=== PATIENT | male | born 1950 | race Caucasian/White ===

== ENCOUNTER 2016-10-02 11:59 | Emergency (ER) | payer MEDICARE, OTHER ==
[~2016-10-02] VITALS: Ht 177.8 cm; Wt 90.7 kg
[~2016-10-02 11:59] MED LIST: ASP81TEC PO; LISI1TAB6 PO; LOVA40TA2 PO; OXYC-199 PO
--- OUTSIDE RECORDS SUMMARY | 2016-10-02 12:06 | XMS REPORT | Continuity of Care Document ---
Author Author [facility] Organization [facility] Address Unknown Phone Unavailable Care Team Providers Care Passenger Car Inspector Name Role Phone FADI SALGADO MD PCP Insurance Providers Payer Name Policy Number Subscriber Name Relationship Wps Medicare [id number] Yulia Boyd R 18 Self / Same As Patient Comm Crossover Enter Ins Name [id number] Yulia Boyd R 18 Self / Same As Patient Advance Directives Directive Response Recorded Date/Time Advance Directives No 02/19/14 8:19am Health Care Power of Research Food Technologist No 02/19/14 8:19am Organ Donor Yes 02/19/14 8:19am Resuscitation Status Full Code 02/19/14 8:19am Problems No known problems or medical conditions. Medications Medication Dose Route Sig Days/Qty Instructions Order Date Discontinued Date Status Lovastatin (Mevacor) 1 Each PO DAILY WITH SUPPER 02/12/14 Active Lisinopril/Hydrochlorothiazide 1 Tab PO DAILY 02/12/14 Active Aspirin 81 Mg PO DAILY 02/12/14 Active Oxycodone Hcl/Acetaminophen 1-2 Tab PO EVERY 6 HOURS 35 Qty 02/19/14 Active Social History Social History Problem Response Recorded Date/Time Smoking Status Former Smoker 02/19/2014 8:21am Query Response Start Date Stop Date Smoking Status Former Smoker 08/06/1999 Hospital Discharge Instructions No hospital discharge instructions. Plan of Care No plan of care. Functional Status No functional status results. Allergies, Adverse Reactions, Alerts Allergen Type Severity Reaction Status Last Updated No Known Drug Allergies Active 02/12/14 Immunizations No immunization records. Vital Signs Acute Vital Signs Vital Response Date/Time Temperature (Fahrenheit) 97.4 degrees F (97.6 - 99.5) Temperature (Calculated Celsius) 36.20925 degrees C (36.4 - 37.5) Temperature Source Temporal Pulse Rate (adult) 75 bpm (60 - 90) Respiratory Rate 16 bpm (12 - 24) O2 Sat by Pulse Oximetry 95 % (88 - 100) Blood Pressure 117/59 mm Hg Pain Pain Intensity 4 Height (Feet) 5 feet Height (Inches) 10.00 inches Height (Calculated Centimeters) 177.250034 cm Weight (Pounds) 199 pounds Weight (Calculated Grams) 20987.883 gm Weight (Calculated Kilograms) 90.103489 kilograms Calculated BMI 28.55 Results Test Source Date Result Interp. Ref. Range Comments BUN/Creatinine Ratio February 12, 2014 8:20am 19 - Basophils # (Auto) February 12, 2014 8:20am 0.0 10^3/uL N 0.0-0.1 Basophils (%) (Auto) February 12, 2014 8:20am 1 % N 0-10 Blood Urea Nitrogen February 12, 2014 8:20am 23 MG/DL H 7-18 Calcium Level February 12, 2014 8:20am 9.3 MG/DL N 8.5-10.1 Carbon Dioxide Level February 12, 2014 8:20am 30 MMOL/L N 21-32 Chloride Level February 12, 2014 8:20am 104 MMOL/L N 101-110 Creatinine February 12, 2014 8:20am 1.2 MG/DL N 0.6-1.3 Eosinophils # (Auto) February 12, 2014 8:20am 0.2 10^3/uL N 0.0-0.3 Eosinophils (%) (Auto) February 12, 2014 8:20am 3 % N 0-10 Glucose Level February 12, 2014 8:20am 198 MG/DL H 74-106 Hematocrit February 12, 2014 8:20am 43 % N 40-54 Hemoglobin February 12, 2014 8:20am 15.3 G/DL N 13.3-17.7 Lymphocytes # (Auto) February 12, 2014 8:20am 1.5 X 10^3 N 1.0-4.0 Lymphocytes (%) (Auto) February 12, 2014 8:20am 19 % N 12-44 Mean Corpuscular Hemoglobin February 12, 2014 8:20am 31 PG N 25-34 Mean Corpuscular Hemoglobin Concent February 12, 2014 8:20am 36 G/DL N 32- 36 Mean Corpuscular Volume February 12, 2014 8:20am 87 FL N 80-99 Mean Platelet Volume February 12, 2014 8:20am 9.1 FL N 7.4-10.4 Monocytes # (Auto) February 12, 2014 8:20am 0.9 X 10^3 N 0.0-1.0 Monocytes (%) (Auto) February 12, 2014 8:20am 11 % N 0-12 Neutrophils # (Auto) February 12, 2014 8:20am 5.2 X 10^3 N 1.8-7.8 Neutrophils (%) (Auto) February 12, 2014 8:20am 67 % N 42-75 Platelet Count February 12, 2014 8:20am 232 10^3/uL N 130-400 Potassium Level February 12, 2014 8:20am 3.9 MMOL/L N 3.6-5.0 Red Blood Count February 12, 2014 8:20am 4.97 10^6/uL N 4.35-5.85 Red Cell Distribution Width February 12, 2014 8:20am 12.6 % N 10.0-14.5 Sodium Level February 12, 2014 8:20am 137 MMOL/L N 135-145 White Blood Count February 12, 2014 8:20am 7.8 10^3/uL N 4.3-11.0 Estimat Glomerular Filtration Rate February 12, 2014 8:20am > 60 - GFR INTERPRETIVE DATA UNITS FOR ESTIMATED GFR (eGFR): mL/min/1.73 M2 REFERENCE RANGE FOR ESTIMATED GFR (eGFR) eGFR NORMAL eGFR >60 MODERATELY DECREASED eGFR 30-59 SEVERLY DECREASED eGFR 15-29 KIDNEY FAILURE <15 (OR DIALYSIS) MRSA Screen Nasal February 12, 2014 8:20am MRSA not isolated Procedures Procedure Status Date Provider(s) Laparoscopic repair of inguinal hernia completed 02/19/14 TAMMY ARECHIGA MD Tracing only of electrocardiogram completed 02/12/14 [facility] MILK 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
[2016-10-02 12:16] LABS: BILIRUBIN,URINE NEGATIVE (NEGATIVE); KETONES,URINE NEGATIVE (NEGATIVE); LEUKOCYTE ESTERASE ,URINE 3+ (NEGATIVE); NITRITE,URINE NEGATIVE (NEGATIVE); PH,URINE 7 (5-9); PROTEIN,URINE 3+ (NEGATIVE); UROBILINOGEN,URINE NORMAL (NORMAL)
--- NOTE | 2016-10-02 12:18 | ED GU-Male ---
General Chief Complaint: -Male Stated Complaint: BLOOD IN URINE Source: patient, family Exam Limitations: no limitations History of Present Illness Time seen by provider: 12:16 Initial Comments To ER with reports of blood in his urine. He had some burning in the penis and urethra upon urination this morning. He's had pain with urination for about the past 2-[address] Lane's office and was told there was some blood in his urine and an antibiotic was called in. He then went home and was working outside and went to urinate and noticed the urine to be grossly bloody. He's never had this happen before. He does have a history of bladder infections. He does have a remote history (1993) of lung cancer treated with chemotherapy and radiation and is a former smoker. Timing/Duration: just prior to arrival Severity/Quality: moderate Location: urethral Radiation: none Activities at Onset: none Prior Genitourinary Problems: none Associated Symptoms: dysuriaNo fever/chills, No lower back pain, No urinary frequency Allergies and Home Medications Allergies Coded Allergies: No Known Drug Allergies (Unverified , 02/12/14) Home Medications Lisinopril/Hydrochlorothiazide 1 Tab Tablet 1 TAB PO DAILY (Reported) Lovastatin 40 Mg Tablet 1 EACH PO DAILY WITH SUPPER (Reported) Constitutional: see HPINo chills, No fever EENTM: see HPI Respiratory: no symptoms reported Cardiovascular: no symptoms reported Genitourinary: no symptoms reported see HPI burning dysuriadenies frequency, denies flank pain, hematuria Musculoskeletal: no symptoms reported Skin: no symptoms reported Psychiatric/Neurological: No Symptoms Reported Endocrine: No Symptoms Reported Hematologic/Lymphatic: No Symptoms Reported Past Wonzhcg-Rtzush-Ypcaeg Hx Patient Social History Recent Foreign Travel: No Contact w/Someone Who Travel: No Immunizations Up To Date Date of Influenza Vaccine: May 11, 2014 Surgeries HX Surgeries: Yes (WISDOM TEETH REMOVAL, COLONOSCOPY) Respiratory Hx Respiratory Disorders: No Cardiovascular Hx Cardiac Disorders: No Neurological Hx Neurological Disorders: No Genitourinary Hx Genitourinary Disorders: No Gastrointestinal Hx Gastrointestinal Disorders: No Musculoskeletal Hx Musculoskeletal Disorders: No Endocrine Hx Endocrine Disorders: No HEENT HX ENT Disorders: No Blood Transfusions Hx Blood Disorders: No Physical Exam Vital Signs Capillary Refill : General Appearance: WD/WN no apparent distress HEENT: PERRL/EOMI normal ENT inspection Neck: non-tender full range of motion Respiratory: no respiratory distress no accessory muscle use Gastrointestinal: normal bowel sounds non tender soft Extremities: normal range of motion non-tender normal inspection Neurologic/Psychiatric: alert normal mood/affect oriented x 3 Skin: normal color warm/dry Progress/Results/Core Measures Results/Orders Lab Results Laboratory Tests Test 10/02/16 12:10 10/02/16 12:23 Range/Units Urine Bacteria NEGATIVE /HPF Urine Bilirubin NEGATIVE NEGATIVE Urine Casts NONE /LPF Urine Clarity BLOODY H Urine Color RED H Urine Crystals NONE /LPF Urine Culture Indicated YES Urine Glucose (UA) NEGATIVE NEGATIVE Urine Ketones NEGATIVE NEGATIVE Urine Leukocyte Esterase 3+ H NEGATIVE Urine Mucus NEGATIVE /LPF Urine Nitrite NEGATIVE NEGATIVE Urine Protein 3+ H NEGATIVE Urine RBC TNTC H /HPF Urine RBC (Auto) 5+ H NEGATIVE Urine Specific [place] 1.010 L 1.016-1.022 Urine Squamous Epithelial Cells NONE /HPF Urine Urobilinogen NORMAL NORMAL MG/DL Urine WBC 10-25 H /HPF Urine pH 7 5-9 Alanine Aminotransferase (ALT/SGPT) 32 0-55 U/L Albumin 4.4 3.2-4.5 G/DL Alkaline Phosphatase 69 40-136 U/L Anion Gap 13 5-14 MMOL/L Aspartate Amino Transf (AST/SGOT) 30 5-34 U/L BUN/Creatinine Ratio 13 Basophils # (Auto) 0.0 0.0-0.1 10^3/uL Basophils (%) (Auto) 0 0-10 % Blood Urea Nitrogen 15 7-18 MG/DL Calcium Level 9.7 8.5-10.1 MG/DL Carbon Dioxide Level 22 21-32 MMOL/L Chloride Level 100 98-107 MMOL/L Creatinine 1.19 0.60-1.30 MG/DL Eosinophils # (Auto) 0.2 0.0-0.3 10^3/uL Eosinophils (%) (Auto) 2 0-10 % Estimat Glomerular Filtration Rate > 60 Glucose Level 103 70-105 MG/DL Hematocrit 43 40-54 % Hemoglobin 15.2 13.3-17.7 G/DL INR Comment 1.0 0.8-1.4 Lymphocytes # (Auto) 2.0 1.0-4.0 X 10^3 Lymphocytes (%) (Auto) 17 12-44 % Mean Corpuscular Hemoglobin 31 25-34 PG Mean Corpuscular Hemoglobin Concent 35 32-36 G/DL Mean Corpuscular Volume 88 80-99 FL Mean Platelet Volume 8.7 7.4-10.4 FL Monocytes # (Auto) 1.5 H 0.0-1.0 X 10^3 Monocytes (%) (Auto) 13 H 0-12 % Neutrophils # (Auto) 8.0 H 1.8-7.8 X 10^3 Neutrophils (%) (Auto) 69 42-75 % Platelet Count 272 130-400 10^3/uL Potassium Level 3.9 3.6-5.0 MMOL/L Prothrombin Time 13.0 12.2-14.7 SEC Red Blood Count 4.95 4.35-5.85 10^6/uL Red Cell Distribution Width 12.6 10.0-14.5 % Sodium Level 135 135-145 MMOL/L Total Bilirubin 0.5 0.1-1.0 MG/DL Total Protein 7.5 6.4-8.2 G/DL White Blood Count 11.7 H 4.3-11.0 10^3/uL My Orders Orders-LETY CHIU APRN Ua Culture If Indicated (10/02/16 12:08) Cbc With Automated Diff (10/02/16 12:08) Protime With Inr (10/02/16 12:08) Comprehensive Metabolic Panel (10/02/16 12:08) Saline Lock/Iv-Start (10/02/16 12:11) Ct Abdomen/Pelvis W (10/02/16 12:11) Urine Culture (10/02/16 12:10) Ceftriaxone Injection (Rocephin Injectio (10/02/16 12:45) Iohexol Injection (Omnipaque 350 Mg/Ml 1 (10/02/16 13:15) Ns (Ivpb) (Sodium Chloride 0.9% Ivpb Bag (10/02/16 13:15) Medications Given in ED Current Medications Medications Dose Ordered Sig/Ester Route Start Time Stop Time Status Last Admin Dose Admin Ceftriaxone Sodium/Sodium Chloride 50 ml @ 100 mls/hr ONCE ONCE IV 10/02/16 12:45 10/02/16 13:14 DC 10/02/16 13:50 100 MLS/HR Iohexol 100 ml ONCE ONCE IV 10/02/16 13:15 10/02/16 13:41 DC 10/02/16 13:17 100 ML Sodium Chloride 100 ml ONCE ONCE IV 10/02/16 13:15 10/02/16 13:41 DC 10/02/16 13:18 80 ML Diagnostic Imaging Diagonstic Imaging: CT Comments NAME: YULIA [facility]YD [facility] REC#: [id number] PT STATUS: REG ER : 1950 PHYSICIAN: LETY CHIU APRN ADMIT DATE: 10/02/16/ER Draft Date of Exam:10/02/16 CT ABDOMEN/PELVIS W PROCEDURE: CT abdomen and pelvis with contrast. TECHNIQUE: Multiple contiguous axial images were obtained through the abdomen and pelvis after administration of intravenous contrast. INDICATION: Hematuria. 100 mL of Omnipaque 350 is administered intravenously. FINDINGS: The lung bases are clear. The liver, the gallbladder, the spleen, the adrenals, and the pancreas appear unremarkable. The kidneys have symmetric contrast enhancement. In the lower pole of the right kidney there is a partially exophytic, mass measuring 1.7 CM with internal density in the soft tissue range. A solid mass is possible. The urinary bladder demonstrates significant thickening of its wall. This is likely related to cystitis given the diffuse nature. There is diverticulosis in the sigmoid colon with no evidence of diverticulitis. The prostate overall size is within normal limits. No significant free fluid or fluid collection in the abdomen or pelvis. The appendix is normal. The abdominal aorta is normal in caliber. No para-aortic significantly enlarged lymph node is seen. The osseous structures demonstrate mild degenerative changes. IMPRESSION: 1. Diffuse significant thickening in the urinary bladder wall probably related to cystitis. 2. Indeterminate 1.7 CM partially exophytic lesion in the lower pole of the right kidney. Evaluation with the right kidney ultrasound is recommended. 3. Diverticulosis. No diverticulitis. Dictated on workstation # [id number] Dict: 10/02/16 1341 Trans: 10/02/16 1404 [facility] [id number] Interpreted by: ASIA HO MD Electronically signed by: Departure Communication Progress Notes [id number]-Discussed withTara from Dr Lane's office. Informed of CT and need for outpatient renal ultrasound. She will relay message to Dr Lane, Aydee, or Kati. Impression Impression: Primary Impression: Urinary tract infection Qualified Code: N30.01 - Acute cystitis with hematuria Additional Impressions: Hematuria Renal lesion Disposition: HOME, SELF-CARE Condition: Stable Departure-Patient Inst. Decision time for Depature: 13:32 Referrals: ESTHER LANE MD (PCP/Family) Primary Care Physician RIKI ARORA MD Patient Instructions: Blood in the Urine (Hematuria) in Adults, Urinary Tract Infection, Adult (DC) Add. Discharge Instructions: 1. Take the antibiotics as directed as prescribed by Dr. Lane's office 2. Call Dr. Arora to schedule a follow-up appointment for further evaluation 3. All discharge instructions reviewed with patient and/or family. Voiced understanding. Copy Copies To 1: ESTHER LANE MD, PETER J APRN Oct 02, 2016 12:18
[2016-10-02 12:38] LABS: BASOPHILS % (AUTO) 0 % (0-10); EOSINOPHILS # (AUTO) 0.2 10^3/uL (0.0-0.3); EOSINOPHILS % (AUTO) 2 % (0-10); LYMPHOCYTES % (AUTO) 17 % (12-44); MEAN CORPUSCULAR HEMOGLOBIN 31 PG (25-34); MEAN CORPUSCULAR HGB CONC 35 G/DL (32-36); MEAN CORPUSCULAR VOLUME 88 FL (80-99); MEAN PLATELET VOLUME 8.7 FL (7.4-10.4); MONOCYTES # (AUTO) 1.5 X 10^3 (0.0-1.0); MONOCYTES % (AUTO) 13 % (0-12); NEUTROPHILS % (AUTO) 69 % (42-75); PLATELET COUNT 272 10^3/uL (130-400); RED BLOOD COUNT 4.95 10^6/uL (4.35-5.85); RED CELL DISTRIBUTION WIDTH 12.6 % (10.0-14.5); WHITE BLOOD COUNT 11.7 10^3/uL (4.3-11.0)
[2016-10-02] MEDS ORDERED: cefTRIAXone INJECTION 1,000 MG in NS (IVPB) 50 ML IV ONE (12:45)
[2016-10-02 12:58] LABS: ALANINE AMINOTRANSFERASE 32 U/L (0-55); ALBUMIN 4.4 G/DL (3.2-4.5); ANION GAP 13 MMOL/L (5-14); ASPARTATE AMINO TRANSFERASE 30 U/L (5-34); BILIRUBIN,TOTAL 0.5 MG/DL (0.1-1.0); BLOOD UREA NITROGEN 15 MG/DL (7-18); BUN/CREATININE RATIO 13; CALCIUM 9.7 MG/DL (8.5-10.1); CARBON DIOXIDE 22 MMOL/L (21-32); CHLORIDE 100 MMOL/L (98-107); CREATININE SERUM 1.19 MG/DL (0.60-1.30); GFR ESTIMATED > 60; GLUCOSE 103 MG/DL (70-105); POTASSIUM 3.9 MMOL/L (3.6-5.0); SODIUM 135 MMOL/L (135-145); TOTAL PROTEIN 7.5 G/DL (6.4-8.2)
[2016-10-02] MEDS ORDERED: IOHEXOL 350 MG/ML 100 ML (OMNIPAQUE 350) VIAL IV ONE (13:15)
[2016-10-02] MEDS ORDERED: NS 100 ML (IVPB) BAG IV ONE (13:15)
--- NOTE | 2016-10-02 14:05 | Diagnostic Imaging Report ---
PROCEDURE: CT abdomen and pelvis with contrast. TECHNIQUE: Multiple contiguous axial images were obtained through the abdomen and pelvis after administration of intravenous contrast. INDICATION: Hematuria. 100 mL of Omnipaque 350 is administered intravenously. FINDINGS: The lung bases are clear. The liver, the gallbladder, the spleen, the adrenals, and the pancreas appear unremarkable. The kidneys have symmetric contrast enhancement. In the lower pole of the right kidney there is a partially exophytic, mass measuring 1.7 CM with internal density in the soft tissue range. A solid mass is possible. The urinary bladder demonstrates significant thickening of its wall. This is likely related to cystitis given the diffuse nature. There is diverticulosis in the sigmoid colon with no evidence of diverticulitis. The prostate overall size is within normal limits. No significant free fluid or fluid collection in the abdomen or pelvis. The appendix is normal. The abdominal aorta is normal in caliber. No para-aortic significantly enlarged lymph node is seen. The osseous structures demonstrate mild degenerative changes. IMPRESSION: 1. Diffuse significant thickening in the urinary bladder wall probably related to cystitis. 2. Indeterminate 1.7 CM partially exophytic lesion in the lower pole of the right kidney. Evaluation with the right kidney ultrasound is recommended. 3. Diverticulosis. No diverticulitis. Dictated by: Dictated on workstation # [id number]
[2016-10-02 15:25] VITALS: BP 128/70
== END 2016-10-02 14:22 | disposition home or self-care (01) ==
LOC: EDUNIT# 11:59 → ER 12:01
DX: N30.01 Acute cystitis with hematuria (principal); N28.9 Disorder of kidney and ureter, unspecified; K57.30 Diverticulosis of large intestine without perforation or abscess without bleeding; I10 Essential (primary) hypertension; Z79.899 Other long term (current) drug therapy; Z85.118 Personal history of other malignant neoplasm of bronchus and lung; Z92.21 Personal history of antineoplastic chemotherapy
CPT/HCPCS: 36415; 74177; 80053; 81000; 85025; 85610; 87088; 96365

== ENCOUNTER → 2016-10-05 | Outpatient (CLI) | payer MEDICARE, OTHER ==
--- OUTSIDE RECORDS SUMMARY | 2016-10-05 13:03 | XMS REPORT | Continuity of Care Document ---
Author Author [facility] Organization [facility] Address Unknown Phone Unavailable Care Team Providers Care Script Manager Name Role Phone FADI SALGADO MD PCP Insurance Providers Payer Name Policy Number Subscriber Name Relationship Wps Medicare [id number] Yulia Boyd R 18 Self / Same As Patient Comm Crossover Enter Ins Name [id number] Yulia Boyd R 18 Self / Same As Patient Advance Directives Directive Response Recorded Date/Time Advance Directives No 02/19/14 8:19am Health Care Power of District Fire Chief No 02/19/14 8:19am Organ Donor Yes 02/19/14 [...] F (97.6 - 99.5) Temperature (Calculated Celsius) 36.17117 degrees C (36.4 - 37.5) Temperature Source Temporal Pulse Rate (adult) 75 bpm (60 - 90) Respiratory Rate 16 bpm (12 - 24) O2 Sat by Pulse Oximetry 95 % (88 - 100) Blood Pressure 117/59 mm Hg Pain Pain Intensity 4 Height (Feet) 5 feet Height (Inches) 10.00 inches Height (Calculated Centimeters) 177.354704 cm Weight (Pounds) 199 pounds Weight (Calculated Grams) 20310.883 gm Weight (Calculated Kilograms) 90.170473 kilograms Calculated BMI 28.55 Results Test Source [...] only of electrocardiogram completed 02/12/14 [facility] 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
--- NOTE | 2016-10-05 14:30 | Diagnostic Imaging Report ---
Renal ultrasound. INDICATION: Indeterminate mass in the lower pole of the right kidney. FINDINGS: The right kidney is 9.8 cm and the left kidney is 10.1 cm in length. The partially exophytic nodule seen arising from the lower pole of the right kidney demonstrates mixed echogenicity with no definite internal color Doppler seen. The lesion measurements are 1.8 x 1.9 x 1.7 cm. There is a small simple cyst measuring 1 x 0.8 x 0.9 cm in the mid right kidney. No hydronephrosis on either side. IMPRESSION: Indeterminate 1.8 cm nodule exophytic from the lower pole of the right kidney. Further evaluation with renal mass protocol MRI of the abdomen is recommended. Report was faxed to office of Dr. Lane by magy at 2:30 p.m. Dictated by: Dictated on workstation # [id number]
== END ==
LOC: RAD 13:00
PROVIDERS: ATTEND Family Medicine
DX: N28.9 Disorder of kidney and ureter, unspecified (principal)
CPT/HCPCS: 76770

== ENCOUNTER → 2016-10-24 | Outpatient (CLI) | payer MEDICARE, OTHER ==
[~2016-10-24] MED LIST changes: +GADOBUTROL 10 MMOL/10 ML (GADAVIST) VIAL IV ONE
--- OUTSIDE RECORDS SUMMARY | 2016-10-24 07:57 | XMS REPORT | Continuity of Care Document ---
Author Author [facility] Organization [facility] Address Unknown Phone Unavailable Care Team Providers Care Car Rental Sales Assistant Name Role Phone FADI SALGADO MD PCP Insurance Providers Payer Name Policy Number Subscriber Name Relationship Wps Medicare [id number] Yulia Boyd R 18 Self / Same As Patient Comm Crossover Enter Ins Name [id number] Yulia Boyd R 18 Self / Same As Patient Advance Directives Directive Response Recorded Date/Time Advance Directives No 02/19/14 8:19am Health Care Power of Barrel Cap Setter No 02/19/14 8:19am Organ Donor Yes 02/19/14 [...] F (97.6 - 99.5) Temperature (Calculated Celsius) 36.23386 degrees C (36.4 - 37.5) Temperature Source Temporal Pulse Rate (adult) 75 bpm (60 - 90) Respiratory Rate 16 bpm (12 - 24) O2 Sat by Pulse Oximetry 95 % (88 - 100) Blood Pressure 117/59 mm Hg Pain Pain Intensity 4 Height (Feet) 5 feet Height (Inches) 10.00 inches Height (Calculated Centimeters) 177.612047 cm Weight (Pounds) 199 pounds Weight (Calculated Grams) 51660.883 gm Weight (Calculated Kilograms) 90.083108 kilograms Calculated BMI 28.55 Results Test Source [...] only of electrocardiogram completed 02/12/14 SCARLET MELG[facility] 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
--- NOTE | 2016-10-24 12:40 | Diagnostic Imaging Report ---
PROCEDURE: MR imaging abdomen with and without contrast. TECHNIQUE: Multiplanar, multisequence MR imaging of the abdomen was performed with and without contrast. This is performed based on renal mass protocol with subtraction imaging/ INDICATION: Nodule intermediate from the lower pole of the right kidney. 9 mL of Gadavist is administered intravenously. FINDINGS: There is a partially exophytic mass seen in the inferior pole of the right kidney measuring 1.7 cm in size. This has low T2 signal and is associated with a rim of T1 hyperintense signal on precontrast images. There is no definitive contrast enhancement identified. The elements of increased signal on the precontrast T1-weighted images and slight patient motion between the pre and postcontrast images prevent optimal assessment for subtle enhancement and preclude utilization of subtraction imaging which demonstrates artifacts. There are other T2 bright nonenhancing lesions in the right kidney up to 1 cm in size, compatible with cysts. There is no suspicious lesion seen in the left kidney. No hydronephrosis on either side. There is no lymphadenopathy along the para-aortic region. The gallbladder demonstrates no stones, wall thickening, or evidence of cholecystitis. The pancreas, adrenals and the spleen appear unremarkable. IMPRESSION: Lower pole partially exophytic mass in the right kidney has T1 hyperintense elements prior to contrast administration suggestive of a hemorrhagic lesion likely a hemorrhagic cyst. Follow-up CT scan of the abdomen with renal mass protocol in three months is recommended to monitor this lesion. Dictated by: Dictated on workstation # [id number]
== END ==
LOC: RAD 07:54
PROVIDERS: ATTEND Nurse Practitioner Family
DX: N28.9 Disorder of kidney and ureter, unspecified (principal)
CPT/HCPCS: 74183

== ENCOUNTER → 2017-01-30 | Outpatient (CLI) | payer MEDICARE, OTHER ==
[~2017-01-30] MED LIST changes: +CATHETER FLUSH 10 ML SYR IV PRN; -GADOBUTROL 10 MMOL/10 ML (GADAVIST) VIAL IV ONE; +IOHEXOL 350 MG/ML 100 ML (OMNIPAQUE 350) VIAL IV ONE; +NS 100 ML (IVPB) BAG IV ONE
--- NOTE | 2017-01-30 10:45 | Diagnostic Imaging Report ---
PROCEDURE: CT abdomen with and without contrast. TECHNIQUE: Multiple contiguous axial CT images of the abdomen were obtained prior to and after intravenous administration of iodinated contrast. INDICATION: Followup renal mass Correlation with CT of 10/02/16 and MRI of 10/24/16 is performed. FINDINGS: There is a 1.7 cm exophytic lesion from the lower pole of the right kidney. When compared to the unenhanced phase, the postcontrast images demonstrate increased Hounsfield units of 15-25 units on the postcontrast images. This is concerning for solid component that is relatively hypovascular resulting in minimal enhancement. The size of this lesion is unchanged from 10/02/16. There is otherwise symmetric enhancement and excretion in the kidneys. No kidney stones seen. There are subcentimeter hypodensities in the kidneys mostly on the right side likely related to cysts. The liver, the gallbladder, the spleen, and the pancreas is unremarkable. The adrenal glands demonstrate mild thickening probably related to hyperplasia. The lung bases demonstrate no focal consolidation. The abdominal aorta is normal in caliber. No para-aortic significantly enlarged lymph node is seen. The osseous structures demonstrate mild degenerative changes. No significant fluid collection or free fluid is seen in the abdomen or pelvis. IMPRESSION: Stable 1.7 cm circumscribed lesion exophytic from the lower pole of the right kidney with suggestion of minimal enhancement. 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 Report was faxed to the office of Kati Appiah APRN by magy at 10:47 am. Dictated by: Dictated on workstation # [id number]
== END ==
LOC: RAD 09:06
PROVIDERS: ATTEND Nurse Practitioner Family
DX: N28.9 Disorder of kidney and ureter, unspecified (principal)
CPT/HCPCS: 74170

== ENCOUNTER → 2017-06-04 | Outpatient (CLI) | payer MEDICARE, OTHER ==
[~2017-06-04] MED LIST changes: -CATHETER FLUSH 10 ML SYR IV PRN
[2017-06-04 08:22] LABS: BLOOD UREA NITROGEN 14 MG/DL (7-18); BUN/CREATININE RATIO 12; CREATININE SERUM 1.13 MG/DL (0.60-1.30); GFR ESTIMATED > 60
--- NOTE | 2017-06-04 16:12 | Diagnostic Imaging Report ---
PROCEDURE: CT abdomen and pelvis with and without contrast. TECHNIQUE: Precontrast acquisitions were acquired through the abdomen and pelvis. Multiple contiguous axial images were obtained through the abdomen and pelvis after the administration of intravenous contrast. INDICATION: Followup renal mass. CONTRAST: 100 mL of Omnipaque 350 was administered intravenously. FINDINGS: The lung bases demonstrate no significant abnormality. The liver, gallbladder, spleen, and pancreas appear unremarkable. There are bilateral nodules in the adrenal glands with fat attenuation, suggestive of benign myelolipomas. In the right kidney along the lower pole, there is a partially exophytic 1.8 cm mass with mild enhancement seen. This has not significantly changed in size when compared to the previous study of 01/30/2017. The renal parenchyma demonstrates subcentimeter hypodensities which are too small to adequately characterize. These are likely cysts. The unenhanced phase demonstrates no kidney stones. There is no hydronephrosis. There is minimal prominence of the prostate gland with no significant enlargement. The urinary bladder appears unremarkable. The thoracic aorta is normal in caliber. No deonte-aortic significantly enlarged lymph node is seen. No significant free fluid or fluid collection in the abdomen or pelvis is noted. The appendix is normal. There is prominent diverticulosis. No diverticulitis. The osseous structures appear grossly unremarkable. IMPRESSION: 1. 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 No significant change in size is seen. No evidence of lymph node spread or metastatic disease in the abdomen or pelvis. 2. Diverticulosis. No diverticulitis. Report faxed to Dr. Duenas at 4:12 p.m. 06/04/2017/cb Dictated by: Dictated on workstation # [id number]
== END ==
LOC: RAD 07:57
PROVIDERS: ATTEND Urology
DX: N28.89 Other specified disorders of kidney and ureter (principal); K57.30 Diverticulosis of large intestine without perforation or abscess without bleeding
CPT/HCPCS: 36415; 74178; 82565; 84520

== ENCOUNTER 2017-08-18 10:47 | Emergency (ER) | payer MEDICARE, OTHER ==
[~2017-08-18] VITALS: Ht 175.3 cm; Wt 90.7 kg
[~2017-08-18 10:47] MED LIST changes: -IOHEXOL 350 MG/ML 100 ML (OMNIPAQUE 350) VIAL IV ONE; -NS 100 ML (IVPB) BAG IV ONE
--- OUTSIDE RECORDS SUMMARY | 2017-08-18 10:52 | XMS REPORT | Continuity of Care Document ---
Author Author [facility] Organization [facility] Address Unknown Phone Unavailable Allergies Active Description Code Type Severity Reaction Onset Reported/Identified Relationship to Patient Clinical Status Yes No Known Drug Allergies [id number] Drug Allergy Unknown N/A 02/12/2014 Medications There is no data. Problems Date Dx Coded Attending Type Code Diagnosis Diagnosed By 02/19/2014 HAWK IGLESIAS, TAMMY Ot 550.90 UNILAT INGUINAL HERNIA 08/12/2014 KARTHIK IGLESIAS, AUDELIA Garza Ot 211.3 08/12/2014 KARTHIK IGLESIAS, AUDELIA Garza Ot 562.10 08/12/2014 KARTHIK IGLESIAS, AUDELIA Garza Ot 600.00 08/12/2014 KARTHIK IGLESIAS, AUDELIA Garza Ot V76.51 08/13/2014 KARTHIK IGLESIAS, AUDELIA Garza Ot 211.3 08/13/2014 KARTHIK IGLESIAS, AUDELIA Garza Ot 562.10 08/13/2014 KARTHIK IGLESIAS, AUDELIA Garza Ot 600.00 08/13/2014 KARTHIK IGLESIAS, AUDELIA Garza Ot V76.51 08/14/2014 KARTHIK IGLESIAS, AUDELIA Garza Ot 211.3 08/14/2014 KARTHIK IGLESIAS, AUDELIA Garza Ot 562.10 08/14/2014 KARTHIK IGLESIAS, AUDELIA Garza Ot 600.00 08/14/2014 KARTHIK IGLESIAS, AUDELIA Garza Ot V76.51 09/14/2014 KARTHIK IGLESIAS, AUDELIA Garza Ot 211.3 09/14/2014 KARTHIK IGLESIAS, AUDELIA Garza Ot 562.10 09/14/2014 KARTHIK IGLESIAS, AUDELIA Garza Ot 600.00 09/14/2014 KARTHIK IGLESIAS, AUDELIA Garza Ot V76.51 11/25/2014 KARTHIK IGLESIAS, AUDELIA Garza Ot V72.84 02/01/2015 SKIP IGLESIAS, ESTHER A Ot 272.4 02/01/2015 SKIP IGLESIAS, ESTHER A Ot 401.9 02/01/2015 SKIP IGLESIAS, ESTHER A Ot V10.11 09/01/2015 HAWK IGLESIAS, TAMMY Ot 550.90 09/01/2015 HAWK IGLESIAS, TAKAAKI Ot V72.63 09/01/2015 HAWK IGLESIAS, TAKAAKI Ot V74.8 09/01/2015 KARTHIK IGLESIAS, AUDELIA Garza Ot 211.3 09/01/2015 KARTHIK IGLESIAS, AUDELIA Garza Ot 562.10 09/01/2015 KARTHIK IGLESIAS, AUEDLIA Garza Ot 600.00 09/01/2015 KARTHIK IGLESIAS, AUDLEIA Garza Ot V76.51 09/01/2015 KARTHIK IGLESIAS, AUDELIA Garza Ot V72.84 09/01/2015 SKIP IGLESIAS, ESTHER A Ot 272.4 09/01/2015 SKIP IGLESIAS, ESTHER A Ot 401.9 09/01/2015 SKIP IGLESIAS, ESTHER A Ot V10.11 09/01/2015 HAKAN MURDOCK WREATH MACHINE OPERATOR Ot Z08 09/01/2015 HAKAN MURDOCK WREATH MACHINE OPERATOR Ot Z85.118 09/03/2015 HAKAN MURDOCK WREATH MACHINE OPERATOR Ot Z08 09/03/2015 HAKAN MURDOCK WREATH MACHINE OPERATOR Ot Z85.118 09/07/2015 HAKAN MURDOCK WREATH MACHINE OPERATOR Ot F17.210 09/07/2015 HAKAN MURDOCK WREATH MACHINE OPERATOR Ot Z85.118 09/07/2015 HAKAN MURDOCK WREATH MACHINE OPERATOR Ot F17.210 09/07/2015 HAKAN MURDOCK WREATH MACHINE OPERATOR Ot Z85.118 09/13/2015 HAWK IGLESIAS, TAKAAKI Ot 550.90 09/13/2015 HAWK IGLESIAS, TAKAAKI Ot V72.63 09/13/2015 HAWK IGLESIAS, TAKAAKI Ot V74.8 09/13/2015 KARTHIK IGLESIAS, AUDELIA Garza Ot 211.3 09/13/2015 KARTHIK IGLESIAS, AUDELIA Garza Ot 562.10 09/13/2015 KARTHIK IGLESIAS, AUDELIA Garza Ot 600.00 09/13/2015 KARTHIK IGLESIAS, AUDELIA Garza Ot V76.51 09/13/2015 KARTHIK IGLESIAS, AUDELIA Garza Ot V72.84 09/13/2015 SKIP IGLESIAS, ESTHER A Ot 272.4 09/13/2015 SKIP IGLESIAS, ESTHER A Ot 401.9 09/13/2015 SKIP IGLESIAS, ESTHER A Ot V10.11 09/13/2015 HAKAN MURDOCK WREATH MACHINE OPERATOR Ot Z08 09/13/2015 HAKAN MURDOCK WREATH MACHINE OPERATOR Ot Z85.118 09/13/2015 HAKAN MURDOCK WREATH MACHINE OPERATOR Ot F17.210 09/13/2015 HAKAN MURDOCK WREATH MACHINE OPERATOR Ot Z85.118 09/13/2015 HAKAN MURDOCK WREATH MACHINE OPERATOR Ot F17.210 09/13/2015 HAKAN MURDOCK WREATH MACHINE OPERATOR Ot Z85.118 10/06/2015 SKIP IGLESIAS, ESTHER Leung Ot R93.4 06/12/2016 HAWK IGLESIAS, TAMMY Ot 550.90 UNILAT INGUINAL HERNIA 06/12/2016 HAWK IGLESIAS, TAMMY Ot V72.63 PRE-PROCEDURAL LABORATORY EXAMINATION 06/12/2016 HAWK IGLESIAS, TAMMY Ot V74.8 SCREEN-BACTERIAL DIS NEC 06/12/2016 KARTHIK IGLESIAS, AUDELIA Garza Ot 211.3 BENIGN NEOPLASM LG BOWEL 06/12/2016 KARTHIK IGLESIAS, AUDELIA Garza Ot 562.10 DIVERTICULOSIS COLON (W/O MENT OF HEMORR 06/12/2016 AUDELIA ANGELES MD Ot 600.00 HYPERTROPHY (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 06/12/2016 KARTHIK IGLESIAS, AUDELIA Garza Ot V76.51 SCREEN MAL NEOP-COLON 06/12/2016 KARTHIK IGLESIAS, AUDELIA Garza Ot V72.84 EXAM PRE-OPERATIVE NOS 06/12/2016 SKIP IGLESIAS, ESTHER Leung Ot 272.4 HYPERLIPIDEMIA NEC/NOS 06/12/2016 SKIP IGLESIAS, ESTHER Leung Ot 401.9 HYPERTENSION NOS 06/12/2016 SKIP IGLESIAS, ESTHER Leung Ot V10.11 HX-BRONCHOGENIC MALIGNAN 06/12/2016 HAKAN MURDOCK WREATH MACHINE OPERATOR Ot Z08 ENCNTR FOR FOLLOW-UP EXAM AFTER TRTMT FO 06/12/2016 HAKAN MURDOCK WREATH MACHINE OPERATOR Ot Z85.118 PERSONAL HISTORY OF MALIGNANT NEOPLASM O 06/12/2016 HAKAN MURDOCK WREATH MACHINE OPERATOR Ot F17.210 NICOTINE DEPENDENCE, CIGARETTES, UNCOMPL 06/12/2016 HAKAN MURDOCK WREATH MACHINE OPERATOR Ot Z85.118 PERSONAL HISTORY OF MALIGNANT NEOPLASM O 06/12/2016 SKIP IGLESIAS, ESTHER Leung Ot R93.4 ABNORMAL FINDINGS ON DIAGNOSTIC IMAGING 06/16/2016 HAKAN MURDOCKP Ot R91.1 SOLITARY PULMONARY NODULE 06/16/2016 HAKAN MURDOCKP Ot R91.1 SOLITARY PULMONARY NODULE 06/19/2016 HAKAN MURDOCKP Ot R91.1 SOLITARY PULMONARY NODULE 07/04/2016 SKIP IGLESIAS, ESTHER Leung Ot C34.90 MALIGNANT NEOPLASM OF UNSP PART OF [facility] 07/07/2016 HAKAN MURDOCKP Ot R91.1 SOLITARY PULMONARY NODULE 10/02/2016 HAWK IGLESIAS, TAMMY Ot 550.90 UNILAT INGUINAL HERNIA 10/02/2016 HAWK IGLESIAS, TAMMY Ot V72.63 PRE-PROCEDURAL LABORATORY EXAMINATION 10/02/2016 HAWK IGLESIAS, TAMMY Ot V74.8 SCREEN-BACTERIAL DIS NEC 10/02/2016 KARTHIK IGLESIAS, AUDELIA Garza Ot 211.3 BENIGN NEOPLASM LG BOWEL 10/02/2016 KARTHIK IGLESIAS, AUDELIA Garza Ot 562.10 DIVERTICULOSIS COLON (W/O MENT OF HEMORR 10/02/2016 AUDELIA ANGELES MD Ot 600.00 HYPERTROPHY (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 10/02/2016 AUDELIA ANGELES MD Ot V76.51 SCREEN MAL NEOP-COLON 10/02/2016 KARTHIK IGLESIAS, AUDELIA Garza Ot V72.84 EXAM PRE-OPERATIVE NOS 10/02/2016 ESTHER VALDIVIA MD Ot 272.4 HYPERLIPIDEMIA NEC/NOS 10/02/2016 ESTHER VALDIVIA MD Ot 401.9 HYPERTENSION NOS 10/02/2016 ESTHER VALDIVIA MD Ot V10.11 HX-BRONCHOGENIC MALIGNAN 10/02/2016 HAKAN MURDOCK Ot Z08 ENCNTR FOR FOLLOW-UP EXAM AFTER TRTMT FO 10/02/2016 HAKAN MURDOCKP Ot Z85.118 PERSONAL HISTORY OF MALIGNANT NEOPLASM O 10/02/2016 HAKAN MURDOCKP Ot F17.210 NICOTINE DEPENDENCE, CIGARETTES, UNCOMPL 10/02/2016 HAKAN MURDOCK Ot Z85.118 PERSONAL HISTORY OF MALIGNANT NEOPLASM O 10/02/2016 ESTHER VALDIVIA MD Ot R93.4 ABNORMAL FINDINGS ON DIAGNOSTIC IMAGING 10/02/2016 ESTHER VALDIVIA MD, Ot C34.90 [facility]IG[facility] 10/02/2016 HAKAN MURDOCKP Ot R91.1 SOLITARY PULMONARY NODULE 10/02/2016 LETY CHIU APRN Ot I10 ESSENTIAL (PRIMARY) HYPERTENSION 10/02/2016 LETY CHIU PARTY HOST/HOSTESS Ot K57.30 DVRTCLOS OF LG INT W/O PERFORATION OR AB 10/02/2016 LETY CHIU PARTY HOST/HOSTESS Ot N28.9 DISORDER OF KIDNEY AND URETER, UNSPECIFI 10/02/2016 LETY CHIU PARTY HOST/HOSTESS Ot N30.01 ACUTE CYSTITIS WITH HEMATURIA 10/02/2016 LETY CHIU PARTY HOST/HOSTESS Ot R31.9 HEMATURIA, UNSPECIFIED 10/02/2016 LETY CHIU PARTY HOST/HOSTESS Ot Z79.899 OTHER DIAMOND SAWER (CURRENT) DRUG THERAPY 10/02/2016 LETY CHIU APRN Ot Z85.118 PERSONAL HISTORY OF MALIGNANT NEOPLASM O 10/02/2016 LETY CHIU APRN Ot Z92.21 PERSONAL HISTORY OF ANTINEOPLASTIC CHEMO 10/05/2016 SKIP IGLESIAS, ESTHER Leung Ot N28.9 DISORDER OF KIDNEY AND URETER, UNSPECIFI 10/24/2016 HAKAN MURDOCK Ot N28.9 DISORDER OF KIDNEY AND URETER, UNSPECIFI 10/26/2016 ESTHER VALDIVIA MD Ot N28.9 DISORDER OF KIDNEY AND URETER, UNSPECIFI 11/17/2016 HAKAN MURDOCK Ot N28.9 DISORDER OF KIDNEY AND URETER, UNSPECIFI 01/31/2017 TORIE MCCRARY APRN Ot N28.9 DISORDER OF KIDNEY AND URETER, UNSPECIFI 02/23/2017 TORIE MCCRARY APRN Ot N28.9 DISORDER OF KIDNEY AND URETER, UNSPECIFI 05/31/2017 TAMMY ARECHIGA MD Ot 550.90 UNILAT INGUINAL HERNIA 05/31/2017 TAMMY ARECHIGA MD Ot V72.63 PRE-PROCEDURAL LABORATORY EXAMINATION 05/31/2017 TAMMY ARECHIGA MD Ot V74.8 SCREEN-BACTERIAL DIS NEC 05/31/2017 AUDELIA ANGELES MD Ot 211.3 BENIGN NEOPLASM LG BOWEL 05/31/2017 AUDELIA ANGELES MD Ot 562.10 DIVERTICULOSIS COLON (W/O MENT OF HEMORR 05/31/2017 AUDELIA ANGELES MD Ot 600.00 HYPERTROPHY (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 05/31/2017 AUDELIA ANGELES MD Ot V76.51 SCREEN MAL NEOP-COLON 05/31/2017 AUDELIA ANGELES MD Ot V72.84 EXAM PRE-OPERATIVE NOS 05/31/2017 ESTHER VALDIVIA MD Ot 272.4 HYPERLIPIDEMIA NEC/NOS 05/31/2017 ESTHER VALDIVIA MD Ot 401.9 HYPERTENSION NOS 05/31/2017 ESTHER VALDIVIA MD Ot V10.11 HX-BRONCHOGENIC MALIGNAN 05/31/2017 HAKAN MURDOCK Ot Z08 ENCNTR FOR FOLLOW-UP EXAM AFTER TRTMT FO 05/31/2017 HAKAN MURDOCKP Ot Z85.118 PERSONAL HISTORY OF MALIGNANT NEOPLASM O 05/31/2017 HAKAN MURDOCK Ot F17.210 NICOTINE DEPENDENCE, CIGARETTES, UNCOMPL 05/31/2017 HAKAN MURDOCK Ot Z85.118 PERSONAL HISTORY OF MALIGNANT NEOPLASM O 05/31/2017 ESTHER VALDIVIA MD Ot R93.4 ABNORMAL FINDINGS ON DIAGNOSTIC IMAGING 05/31/2017 ESTHER VALDIVIA MD Ot C34.90 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 Results Test Result Range Complete urinalysis with reflex to culture - 10/02/16 12:10 Urine color determination RED NRG Urine clarity determination BLOODY NRG Urine pH measurement by test strip 7 5-9 Specific gravity of urine by test strip 1.010 1.016- 1.022 Urine protein assay by test strip, semi-quantitative 3+ NEGATIVE Urine glucose detection by automated test strip NEGATIVE NEGATIVE Erythrocytes detection in urine sediment by light microscopy 5+ NEGATIVE Urine ketones detection by automated test strip NEGATIVE NEGATIVE Urine nitrite detection by test strip NEGATIVE NEGATIVE Urine total bilirubin detection by test strip NEGATIVE NEGATIVE Urine urobilinogen measurement by automated test strip (mass/volume) NORMAL NORMAL Urine leukocyte esterase detection by dipstick 3+ NEGATIVE Automated urine sediment erythrocyte count by microscopy (number/high power field) TNTC NRG Automated urine sediment leukocyte count by microscopy (number/high power field ) [HPF] NRG Bacteria detection in urine sediment by light microscopy NEGATIVE NRG Squamous epithelial cells detection in urine sediment by light microscopy NONE NRG Crystals detection in urine sediment by light microscopy NONE NRG Casts detection in urine sediment by light microscopy NONE NRG Mucus detection in urine sediment by light microscopy NEGATIVE NRG Complete urinalysis with reflex to culture YES NRG Bacterial urine culture - 10/02/16 12:10 Bacterial urine culture NG NRG Complete blood count (CBC) with automated white blood cell (WBC) differential - 10/02/16 12:23 Blood leukocytes automated count (number/volume) 11.7 10*3/uL 4.3-11.0 Blood erythrocytes automated count (number/volume) 4.95 10*6/uL 4.35-5.85 Venous blood hemoglobin measurement (mass/volume) 15.2 g/dL 13.3-17.7 Blood hematocrit (volume fraction) 43 % 40-54 Automated erythrocyte mean corpuscular volume 88 [foz_us] 80-99 Automated erythrocyte mean corpuscular hemoglobin (mass per erythrocyte) 31 pg 25-34 Automated erythrocyte mean corpuscular hemoglobin concentration measurement ( mass/volume) 35 g/dL 32-36 Automated erythrocyte distribution width ratio 12.6 % 10.0-14.5 Automated blood platelet count (count/volume) 272 10*3/uL 130-400 Automated blood platelet mean volume measurement 8.7 [foz_us] 7.4-10.4 Automated blood neutrophils/100 leukocytes 69 % 42-75 Automated blood lymphocytes/100 leukocytes 17 % 12-44 Blood monocytes/100 leukocytes 13 % 0-12 Automated blood eosinophils/100 leukocytes 2 % 0-10 Automated blood basophils/100 leukocytes 0 % 0-10 Blood neutrophils automated count (number/volume) 8.0 10*3 1.8-7.8 Blood lymphocytes automated count (number/volume) 2.0 10*3 1.0-4.0 Blood monocytes automated count (number/volume) 1.5 10*3 0.0-1.0 Automated eosinophil count 0.2 10*3/uL 0.0-0.3 Automated blood basophil count (count/volume) 0.0 10*3/uL 0.0-0.1 PT panel in platelet poor plasma by coagulation assay - 10/02/16 12:23 Prothrombin time (PT) in platelet poor plasma by coagulation assay 13.0 s 12.2-14.7 INR in platelet poor plasma or blood by coagulation assay 1.0 0.8-1.4 Comprehensive metabolic panel - 10/02/16 12:23 Serum or plasma sodium measurement (moles/volume) 135 mmol/L 135-145 Serum or plasma potassium measurement (moles/volume) 3.9 mmol/L 3.6-5.0 Serum or plasma chloride measurement (moles/volume) 100 mmol/L 98-107 Carbon dioxide 22 mmol/L 21-32 Serum or plasma anion gap determination (moles/volume) 13 mmol/L 5-14 Serum or plasma urea nitrogen measurement (mass/volume) 15 mg/dL 7-18 Serum or plasma creatinine measurement (mass/volume) 1.19 mg/dL 0.60-1.30 Serum or plasma urea nitrogen/creatinine mass ratio 13 NRG Serum or plasma creatinine measurement with calculation of estimated glomerular filtration rate > NRG Serum or plasma glucose measurement (mass/volume) 103 mg/dL 70-105 Serum or plasma calcium measurement (mass/volume) 9.7 mg/dL 8.5-10.1 Serum or plasma total bilirubin measurement (mass/volume) 0.5 mg/dL 0.1-1.0 Serum or plasma alkaline phosphatase measurement (enzymatic activity/volume) 69 U/L 40-136 Serum or plasma aspartate aminotransferase measurement (enzymatic activity/ volume) 30 U/L 5-34 Serum or plasma alanine aminotransferase measurement (enzymatic activity/volume ) 32 U/L 0-55 Serum or plasma protein measurement (mass/volume) 7.5 g/dL 6.4-8.2 Serum or plasma albumin measurement (mass/volume) 4.4 g/dL 3.2-4.5 [id number] - 06/04/17 08:04 Serum or plasma urea nitrogen measurement (mass/volume) 14 mg/dL 7-18 Serum or plasma creatinine measurement (mass/volume) 1.13 mg/dL 0.60-1.30 Serum or plasma urea nitrogen/creatinine mass ratio 12 NRG Serum or plasma creatinine measurement with calculation of estimated glomerular filtration rate > NRG Encounters ACCT No. Visit Date/Time Discharge Status Pt. Type Provider Facility Loc./Unit Complaint [id number] 06/04/2017 07:57:00 06/04/2017 23:59:59 CLS Outpatient RIKI ARORA MD [facility] RAD R RENAL MASS [id number] 01/30/2017 09:06:00 01/30/2017 23:59:59 CLS Outpatient TORIE MCCRARY PARTY HOST/HOSTESS [facility] RAD HX OF ABNORMAL CT HEMORRHAGIC CYST [id number] 10/24/2016 07:54:00 10/24/2016 23:59:59 CLS Outpatient HAKAN MURDOCK [facility] RAD INDETERMINATE NODULE IN THE RT KIDNEY [id number] 10/05/2016 13:00:00 10/05/2016 23:59:59 CLS Outpatient ESTHER VALDIVIA MD [facility] RAD RENAL NODULE [id number] 10/02/2016 12:01:00 10/02/2016 14:22:00 DIS Emergency LETY CHIU PARTY HOST/HOSTESS [facility] ER BLOOD IN URINE [id number] 06/16/2016 09:13:00 06/16/2016 23:59:59 CLS Outpatient HAKAN MURDOCK [facility] RAD RT LUNG NODULE [id number] 06/12/2016 08:20:00 06/12/2016 23:59:59 CLS Outpatient ESTHER VALDIVIA MD [facility] RAD SMALL CELL LUNG CANCER [id number] 09/13/2015 12:54:00 09/13/2015 23:59:59 CLS Outpatient ESTHER VALDIVIA MD [facility] RAD ABNORMALITY OF LT RENAL SEGMENT [id number] 09/01/2015 08:26:00 09/01/2015 23:59:59 CLS Outpatient HAKAN MURDOCK [facility] RAD TOBACCOISM, HX OF LUNG CANCER [id number] 08/16/2015 09:29:00 08/16/2015 23:59:59 CLS Outpatient HAKAN MURDOCK [facility] RAD HX OF LUNG CANCER [id number] 01/11/2015 07:50:00 01/11/2015 23:59:59 CLS Outpatient ESTHER VALDIVIA MD [facility] RAD HX OF SMALL CELL CA [id number] 08/11/2014 08:14:00 08/11/2014 23:59:59 CLS Outpatient AUDELIA ANGELES MD [facility] SCREENING [id number] 08/07/2014 06:04:00 08/07/2014 23:59:59 CLS Outpatient AUDELIA ANGELES MD [facility] PREOP SCREENING [id number] 02/19/2014 06:57:00 02/19/2014 14:00:00 DIS Outpatient TAMMY ARECHIGA MD [facility] LEFT INGUINAL HERNIA [id number] 02/12/2014 07:35:00 02/12/2014 23:59:59 CLS Outpatient TAMMY ARECHIGA MD [facility] PREOP LEFT INGUINAL HERNIA [id number] 08/18/2017 10:48:00 ACT Emergency LELIA IGLESIAS, QUINTIN Del Valle [facility] ER L ELBOW INJ
[2017-08-18] MEDS ORDERED: TETANUS,DIPTH,PERTUSS P/F (BOOSTRIX) 0.5 ML VIAL IM STA (11:40)
--- NOTE | 2017-08-18 12:04 | ED Upper Extremity ---
General Chief Complaint: Bite-Animal/Human/Insect Stated Complaint: L ELBOW INJ Nursing Triage Note: Patient advises his dog and another dog were fighting when he attempted to break them up. While breaking them up he advises that the neighbors dog bit him on the left elbow. Nursing Sepsis Screen: No Definite Risk Source: patient Exam Limitations: no limitations History of Present Illness Time seen by provider: 11:35 Initial Comments 66-year-old male patient presents to the emergency Department with reports of the dog bite to the left elbow. Patient states he was trying to break up a fight between his dog and a neighbor's dog. States his dog is up-to-date on rabies shots. He thinks the neighbor's dog is up-to-date on shots, but they are able to monitor the dog for rabies symptoms. Onset: this morning Pain/Injury Location: left elbow Method of Injury: other (dog bite) Allergies and Home Medications Allergies Coded Allergies: No Known Drug Allergies (Unverified , 02/12/14) Home Medications Lisinopril/Hydrochlorothiazide 1 Tab Tablet, 1 TAB PO DAILY, (Reported) Lovastatin 40 Mg Tablet, 1 EACH PO DAILY WITH SUPPER, (Reported) Constitutional: no symptoms reported Respiratory: no symptoms reported Cardiovascular: no symptoms reported Musculoskeletal: No back pain, No joint pain, No joint swelling, No neck pain Skin: see HPI, other (dog bite left elbow) Psychiatric/Neurological: Denies Numbness, Denies Paresthesia, Denies Tingling , Denies Weakness All Other Systems Reviewed Negative Unless Noted: Yes (Negative excepted noted.) Past Vwwzdco-Svlcop-Ejxfmr Hx Patient Social History Alcohol Use: Occasionally Uses Recreational Drug Use: No Smoking Status: Never a Smoker Recent Foreign Travel: No Contact w/Someone Who Travel: No Recent Infectious Disease Expo: No Recent Hopitalizations: No Physical Abuse: No Sexual Abuse: No Immunizations Up To Date Tetanus Booster (TDap): Unknown Date of Influenza Vaccine: May 11, 2014 Surgeries History of Surgeries: Yes (WISDOM TEETH REMOVAL, COLONOSCOPY) Respiratory History of Respiratory Disorde: No Cardiovascular History of Cardiac Disorders: No Neurological History of Neurological Disord: No Genitourinary History of Genitourinary Disor: No Gastrointestinal History of Gastrointestinal Di: No Musculoskeletal History of Musculoskeletal Dis: No Endocrine History of Endocrine Disorders: No HEENT History of HEENT Disorders: No Cancer History of Cancer: No Psychosocial History of Psychiatric Problem: No Suicide Risk Score: 0 Blood Transfusions History of Blood Disorders: No Reviewed Nursing Assessment Reviewed/Agree w Nursing PMH: Yes Family Medical History Significant Family History: No Pertinent Family Hx Physical Exam Vital Signs Vital Sign - Last 12Hours 08/18/17 11:08 Pulse 67 Resp 11 B/P (MAP) 143/93 (110) Pulse Ox 98 O2 Delivery Room Air Capillary Refill : Less Than 3 Seconds General Appearance: WD/WN, no apparent distress Cardiovascular: normal peripheral pulses Shoulder: normal inspection, non-tender, no evidence of injury, normal ROM Elbow/Forearm: normal ROM, Left, soft tissue tenderness (very mild soft tissue tenderness of the posterior elbow with a puncture wound noted. no bony tenderness. no ecchymosis or active bleeding.) Wrist: Yes normal inspection, Yes non-tender, Yes no evidence of injury, Yes normal ROM Hand: normal inspection, non-tender, no evidence of injury, normal ROM, Left Neurologic/Tendon: normal sensation, normal motor functions, normal tendon functions, responds to pain, no evidence tendon injury Neurologic/Psychiatric: no motor/sensory deficits, alert, normal mood/affect, oriented x 3 Skin: normal color, warm/dry, No ecchymosis, other (puncture wound of the left posterior elbow) Progress/Results/Core Measures Results/Orders My Orders Orders - RODOLFO KRAUSE Pertuss(Acell),Tet Adult (Boostrix (08/18/17 11:40) Vital Signs/I&O Vital Sign - Last 12Hours 08/18/17 11:08 Pulse 67 Resp 11 B/P (MAP) 143/93 (110) Pulse Ox 98 O2 Delivery Room Air Blood Pressure Mean: 110 Departure Communication (Admissions) Progress Notes wound cleansed with chlorhexidine and sterile saline. Boostrix given in the emergency department. Discharge to home. Impression Impression: Primary Impression: Dog bite Qualified Codes: W54.0XXA - Bitten by dog, initial encounter Disposition: HOME, SELF-CARE Condition: Improved Departure-Patient Inst. Decision time for Depature: 12:05 Referrals: ESTHER VALDIVIA MD (PCP/Family) Primary Care Physician Patient Instructions: Animal Bites (DC) Add. Discharge Instructions: All discharge instructions reviewed with patient and/or family. Voiced understanding. Medications as instructed. Tylenol Extra Strength over-the- counter as directed for pain. Ibuprofen 800 mg by mouth every 8 hours as needed for pain. Ice pack for 20 minute intervals as needed. Shower with antibacterial soap. If the neighbors dog is not up-to-date on rabies vaccinations, observe him for 10 days for rabies symptoms. Follow-up with your family practitioner if needed. Return to the emergency department for worsened pain, redness, fever, drainage, numbness, or any other concerns. Scripts Amoxicillin/Potassium Clav (Augmentin 500-125 Tablet) 1 Each Tablet 1 EACH PO TID, #21 TAB 0 Refills Prov: RODOLFO KRAUSE 08/18/17 RODOLFO KRAUSE Aug 18, 2017 12:04
[2017-08-18] MEDS ORDERED: AMOX-355 PO (12:05)
[2017-08-18 12:33] VITALS: BP 156/101
== END 2017-08-18 12:32 | disposition home or self-care (01) ==
LOC: EDUNIT# 10:47 → ER 10:48
DX: S51.052A Open bite, left elbow, initial encounter (principal); Z23 Encounter for immunization; W54.0XXA Bitten by dog, initial encounter
CPT/HCPCS: 90715; 99283

== ENCOUNTER 2018-01-12 11:37 | Emergency (ER) | payer MEDICARE, OTHER ==
[~2018-01-12] VITALS: Ht 175.3 cm; Wt 88.5 kg
[~2018-01-12 11:37] MED LIST changes: +AMOX-355 PO
[2018-01-12] MEDS ORDERED: AMOX-355 (12:13)
[2018-01-12 12:19] LABS: BILIRUBIN,URINE NEGATIVE (NEGATIVE); CLARITY,URINE SLIGHTLY CLOUDY; COLOR,URINE OTHER; GLUCOSE, URINE (UA) NEGATIVE (NEGATIVE); KETONES,URINE NEGATIVE (NEGATIVE); LEUKOCYTE ESTERASE ,URINE 3+ (NEGATIVE); NITRITE,URINE NEGATIVE (NEGATIVE); PH,URINE 6 (5-9); PROTEIN,URINE 3+ (NEGATIVE); UROBILINOGEN,URINE NORMAL (NORMAL)
[2018-01-12] MEDS ORDERED: KETOROLAC 30 MG/ML VIAL IM STA (12:23)
[2018-01-12 12:27] LABS: RBC,URINE TNTC /HPF
[2018-01-12 12:28] LABS: BACTERIA,URINE MODERATE /HPF
--- NOTE | 2018-01-12 12:28 | ED GU-Male ---
General Chief Complaint: -Male Stated Complaint: PAIN WITH URINATION Nursing Triage Note: ARRIVED VIA AMB TO ROOM 07. 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 Source: patient Exam Limitations: no limitations History of Present Illness Date Seen by Provider: Jan 12, 2018 Time Seen by Provider: 12:15 Initial Comments Here with report of urinary tract problems. Noted that he had acute onset of having to urinate and had some end of urination pain. Did have some blood in the urine in subsequent urinations. Does have history of occasional urinary tract infections. Denies any significant flank pain but does report some suprapubic pain. Timing/Duration: this morning Severity/Quality: moderate Location: suprapubic, urethral Radiation: none Activities at Onset: none Prior Genitourinary Problems: none Modifying Factors: Improves With Urinating Associated Symptoms: dysuria; No fever/chills, No nausea/vomiting; urinary frequency Allergies and Home Medications Allergies Coded Allergies: No Known Drug Allergies (Unverified , 02/12/14) Home Medications Lisinopril/Hydrochlorothiazide 1 Tab Tablet, 1 TAB PO DAILY, (Reported) Lovastatin 40 Mg Tablet, 1 EACH PO DAILY WITH SUPPER, (Reported) Patient Home Medication List Home Medication List Reviewed: Yes Review of Systems Constitutional: see HPI; No chills, No fever Respiratory: no symptoms reported Cardiovascular: no symptoms reported Genitourinary: see HPI, burning, frequency Musculoskeletal: no symptoms reported Past Obamxrq-Kaovrn-Acrwae Hx Past Med/Social Hx: Reviewed Nursing Past Med/Soc Hx Patient Social History Alcohol Use: Denies Use Recreational Drug Use: No Smoking Status: Former Smoker Recent Foreign Travel: No Contact w/Someone Who Travel: No Recent Infectious Disease Expo: No Recent Hopitalizations: No Immunizations Up To Date Tetanus Booster (TDap): Unknown Date of Influenza Vaccine: May 11, 2014 Past Medical History Surgeries: Yes (WISDOM TEETH REMOVAL, COLONOSCOPY) Respiratory: No Cardiac: No Neurological: No Genitourinary: Yes (UTI) Gastrointestinal: No Musculoskeletal: No Endocrine: No HEENT: No Cancer: No Psychosocial: No Blood Disorders: No Family Medical History Reviewed Nursing Family Hx No Pertinent Family Hx Physical Exam Vital Signs Vital Signs - First Documented 01/12/18 12:02 Temp 97.0 Pulse 68 Resp 16 B/P (MAP) 172/89 (116) Pulse Ox 98 O2 Delivery Room Air Capillary Refill : Less Than 3 Seconds General Appearance: WD/WN Neck: full range of motion, supple Cardiovascular: regular rate, rhythm, no murmur Respiratory: lungs clear, normal breath sounds Gastrointestinal: normal bowel sounds, non tender, soft, no pulsatile mass Neurologic/Psychiatric: alert, oriented x 3 Skin: normal color, warm/dry Progress/Results/Core Measures Suspected Sepsis Recent Fever Within 48 Hours: No Infection Criteria Present: None New/Unexplained Altered Menta: No Sepsis Screen: No Definite Risk SIRS Temperature:97.0 Pulse: 68 Respiratory Rate: 16 Blood Pressure 172 /89 Mean: 116 Results/Orders Lab Results Laboratory Tests Test 01/12/18 12:10 Range/Units Urine Color OTHER H Urine Clarity SLIGHTLY CLOUDY Urine pH 6 5-9 Urine Specific [place] 1.010 L 1.016-1.022 Urine Protein 3+ H NEGATIVE Urine Glucose (UA) NEGATIVE NEGATIVE Urine Ketones NEGATIVE NEGATIVE Urine Nitrite NEGATIVE NEGATIVE Urine Bilirubin NEGATIVE NEGATIVE Urine Urobilinogen NORMAL NORMAL MG/DL Urine Leukocyte Esterase 3+ H NEGATIVE Urine RBC (Auto) 5+ H NEGATIVE Urine RBC TNTC H /HPF Urine WBC 5-10 H /HPF Urine Squamous Epithelial Cells NONE /HPF Urine Crystals NONE /LPF Urine Bacteria MODERATE H /HPF Urine Casts NONE /LPF Urine Mucus NEGATIVE /LPF Urine Culture Indicated YES My Orders Orders - ELIZABETH EPPERSON MD Ketorolac Injection (Toradol Injection) (01/12/18 12:23) Ct Abd/Pelvis Wo(Kidney Stone) (01/12/18 12:32) Cephalexin Capsule (Keflex Capsule) (01/12/18 13:20) Vital Signs/I&O 01/12/18 12:02 Temp 97.0 Pulse 68 Resp 16 B/P (MAP) 172/89 (116) Pulse Ox 98 O2 Delivery Room Air Capillary Refill : Less Than 3 Seconds Blood Pressure Mean: 116 Progress Note : Progress Note Seen and evaluated. UA ordered. Toradol 30 mg IM for dysuria symptoms. Monitor patient. We will get CT abdomen and pelvis to rule out kidney stones given his symptoms. A little better after Toradol. 1323: CT results noted. This is discussed with the patient. Keflex 500 mg by mouth. Discharged home with return precautions. Patient verbalize understanding instructions and agreement with plan. Diagnostic Imaging Diagonstic Imaging: CT Plain Films/CT/US/NM/MRI: abdomen, pelvis Comments NAME: YULIA BOYD [facility] REC#: [id number] PT STATUS: REG ER : 1950 PHYSICIAN: ELIZABETH EPPERSON MD ADMIT DATE: 01/12/18/ER Draft Date of Exam:01/12/18 CT ABD/PELVIS WO(KIDNEY STONE) PROCEDURE: CT urinary tract, rule out kidney stone. TECHNIQUE: Multiple contiguous axial images were obtained through the abdomen and pelvis without the use of intravenous contrast. INDICATION: Hematuria and abdominal pain. COMPARISON: 06/04/2017. FINDINGS: Evaluation of the abdominal viscera is mildly limited without contrast. Lower chest: The lung bases are clear. No pericardial or pleural effusion. Peritoneum: No free intraperitoneal air or fluid. Liver and biliary system: Unenhanced liver is normal. The gallbladder is normal. No biliary duct dilation. Spleen and Pancreas: Spleen is normal. Unenhanced pancreas is grossly normal. Adrenals: Normal. tract: No renal or ureteral calculi. No obstructive uropathy. Stable 1.7 cm hypodense nodule extending off the lower pole of the right kidney. GI tract: Stomach is decompressed. No bowel obstruction. No pericolonic inflammatory changes. Descending and sigmoid colon diverticulosis without diverticulitis. Normal appendix. Vasculature and Lymph nodes: Normal caliber aorta with moderate atherosclerotic plaquing. No abdominal or pelvic lymphadenopathy. Musculoskeletal: No concerning osseous lesion. IMPRESSION: 1. No urinary tract calculi or obstructive uropathy. 2. Stable 1.7 cm exophytic hypodense nodule arising from lower pole of the right kidney. Given stability for one year, this likely represents hemorrhagic cyst. Annual surveillance imaging with ultrasound could be performed if deemed clinically warranted. 3. Diverticulosis without diverticulitis. Dictated on workstation # [id number] Dict: 01/12/18 1250 Trans: 01/12/18 1308 [id number] Interpreted by: JEANNA NO MD Electronically signed by: Departure Impression Primary Impression: Urinary tract infection Qualified Codes: N30.01 - Acute cystitis with hematuria Disposition: HOME, SELF-CARE Condition: Improved Departure-Patient Inst. Decision time for Depature: 13:26 Referrals: ESTHER VALDIVIA MD (PCP/Family) Primary Care Physician Patient Instructions: Urinary Tract Infection, Adult (DC) Add. Discharge Instructions: All discharge instructions reviewed with patient and/or family. Voiced understanding. Take medications as directed. Follow-up with your Dr. in a few days for recheck. Return for worse pain, fever, vomiting, weakness, breathing problems or other concerns as needed. Drink plenty of fluids. Scripts Cephalexin (Cephalexin) 500 Mg Tablet 500 MG PO BID, #13 TAB 0 Refills Prov: ELIZABETH EPPERSON MD 01/12/18 ELIZABETH EPPERSON MD Jan 12, 2018 12:28
--- NOTE | 2018-01-12 13:09 | Diagnostic Imaging Report ---
PROCEDURE: CT urinary tract, rule out kidney stone. TECHNIQUE: Multiple contiguous axial images were obtained through the abdomen and pelvis without the use of intravenous contrast. INDICATION: Hematuria and abdominal pain. COMPARISON: 06/04/2017. FINDINGS: Evaluation of the abdominal viscera is mildly limited without contrast. Lower chest: The lung bases are clear. No pericardial or pleural effusion. Peritoneum: No free intraperitoneal air or fluid. Liver and biliary system: Unenhanced liver is normal. The gallbladder is normal. No biliary duct dilation. Spleen and Pancreas: Spleen is normal. Unenhanced pancreas is grossly normal. Adrenals: Normal. tract: No renal or ureteral calculi. No obstructive uropathy. Stable 1.7 cm hypodense nodule extending off the lower pole of the right kidney. GI tract: Stomach is decompressed. No bowel obstruction. No pericolonic inflammatory changes. Descending and sigmoid colon diverticulosis without diverticulitis. Normal appendix. Vasculature and Lymph nodes: Normal caliber aorta with moderate atherosclerotic plaquing. No abdominal or pelvic lymphadenopathy. Musculoskeletal: No concerning osseous lesion. IMPRESSION: 1. No urinary tract calculi or obstructive uropathy. 2. Stable 1.7 cm exophytic hypodense nodule arising from lower pole of the right kidney. Given stability for one year, this likely represents hemorrhagic cyst. Annual surveillance imaging with ultrasound could be performed if deemed clinically warranted. 3. Diverticulosis without diverticulitis. Dictated by: Dictated on workstation # [id number]
[2018-01-12] MEDS ORDERED: CEPHALEXIN 250 MG (KEFLEX) CAP PO STA (13:20)
[2018-01-12] MEDS ORDERED: CEPH500T PO (13:27)
[2018-01-12 13:32] VITALS: BP 148/81
== END 2018-01-12 13:32 | disposition home or self-care (01) ==
LOC: EDUNIT# 11:37 → ER 11:40
DX: N39.0 Urinary tract infection, site not specified (principal); Z87.891 Personal history of nicotine dependence
CPT/HCPCS: 74176; 81000; 87088; 96372

== ENCOUNTER 2018-04-04 10:04 | Day surgery (SDC) | payer MEDICARE, OTHER ==
[~2018-04-04] VITALS: Ht 175.3 cm; Wt 90.7 kg
[~2018-04-04 10:04] MED LIST changes: +AMOX-355; +ASPI-586 PO; +C,E,1CAP PO; +CARV3.122 PO; +CEPH500T PO; +OMEP20CA12 PO
--- OUTSIDE RECORDS SUMMARY | 2018-04-04 10:09 | XMS REPORT | CCD ---
Author Author [facility]ney [facility] Organization [facility] Address [address] [place] [address] Phone Care Team Providers Care Senior Quality Control Technician Name Role Phone PP Unavailable CCM Unavailable Summary Purpose Interface Exchange Insurance Providers Payer name Policy type / Coverage type Covered green party ID Effective Begin Date Effective End Date [employer] Medicare Part B [id number] Unknown Unknown [facility] Medicare Part B [id number] Unknown Unknown Family history Father Diagnosis Age At Onset Cancer Unknown Mother Diagnosis Age At Onset Hypertension Unknown Hyperlipidemia Unknown Social History Social History Element Codes Description Effective Dates Marital status Unknown Yelena 12/31/2014 Number of children Unknown 0 12/31/2014 Employment Unknown Retired 12/31/[address]: 5070624 Quit over 10 years ago 200012/31/[address]: 454029 Currently drinks alcohol 12/31/2014 Frequency of drinks SNOMED CT: 903164046 7 drinks per week 12/31/2014 Allergies, Adverse Reactions, Alerts Allergies, Adverse Reactions, Alerts data not found Past Medical History Illness Codes Condition Status Onset Date Resolved Date Essential (primary) hypertension ICD-9: 401.9 ICD-10: I10 Active 12/30/2014 Unknown Idiopathic gout, 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 ICD-10: M10.072 Active 12/05/2016 Unknown Dysuria ICD-9: 788.1 ICD-10: R30.0 Active 09/26/2015 Unknown Diseases of lips ICD-9 : 528.5 ICD-10: K13.0 Active 06/05/2016 Unknown Mixed hyperlipidemia ICD-9: 272.4 ICD-10: E78.2 Active 12/30/2014 Unknown Personal history of other malignant neoplasm of bronchus and lung ICD-9: V10.11 ICD-10: Z85.118 Active 06/05/2016 Unknown Bicipital tendinitis, right shoulder ICD-9: 726.12 ICD-10: M75.21 Active 12/06/2015 Unknown Pain in right shoulder ICD-9: 719.41 ICD-10: M25.511 Active 06/28/2015 Unknown Hyperlipidemia Unknown Active 12/31/2014 Unknown Hypertension Unknown Active 12/31/2014 Unknown ESSENTIAL HYPERTENSION ICD-9: 401.9 Active 12/30/2014 Unknown HYPERLIPIDEMIA ICD-9: 272.4 Active 12/30/2014 Unknown Problems Condition Codes Effective Dates Condition Status Essential (primary) hypertension ICD-9: 401.9 ICD-10: I10 12/30/2014 Active Idiopathic gout, 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 ICD-10: M10.072 12/05/2016 Active Dysuria ICD-9: 788.1 ICD-10: R30.0 09/26/2015 Active Diseases of lips ICD-9 : 528.5 ICD-10: K13.0 06/05/2016 Active Mixed hyperlipidemia ICD-9: 272.4 ICD-10: E78.2 12/30/2014 Active Personal history of other malignant neoplasm of bronchus and lung ICD-9: V10.11 ICD-10: Z85.118 06/05/2016 Active Bicipital tendinitis, right shoulder ICD-9: 726.12 ICD-10: M75.21 12/06/2015 Active Pain in right shoulder ICD-9: 719.41 ICD-10: M25.511 06/28/2015 Active Hyperlipidemia Unknown 12/31/2014 Active Hypertension Unknown 12/31/2014 Active ESSENTIAL HYPERTENSION ICD-9: 401.9 12/30/2014 Active HYPERLIPIDEMIA ICD-9: 272.4 12/30/2014 Active Medications Medication Codes Instructions Start Date Stop Date Status Fill Instructions lovastatin 40 mg tablet RxNorm: 648932 1 Tablet(s) PO daily 10/201712/05/2017 Active omeprazole 20 mg capsule,delayed release RxNorm: 842247 1 Capsule(s) PO daily 07/23/2017 07/17/2018 Active lisinopril 10 mg-hydrochlorothiazide 12.5 mg tablet RxNorm: 059258 1 Tablet(s) PO daily 07/09/2017 04/04/2018 Active patient needs to call the office to schedule appt fluorouracil 5 % topical cream RxNorm: 762384 1 Gram(s) TOP BID x2 weeks ONLY 03/26/2017 04/08/2017 Inactive fluorouracil 5 % topical cream RxNorm: 005988 1 Gram(s) TOP BID x2 weeks ONLY 03/26/2017 03/25/2017 Inactive Colcrys 0.6 mg tablet RxNorm: 659372 2 Tablet(s) PO UD 2016 No Stop Date Active 2 tabs today then 1 tab daily x 5 days then prn gout lisinopril 10 mg-hydrochlorothiazide 12.5 mg tablet RxNorm: 359147 1 Tablet(s) PO daily 10/12/2016 07/08/2017 Inactive Cipro 500 mg tablet RxNorm: 088150 1 Tablet(s) PO BID 201610/08/2016 Inactive Cipro 500 mg tablet RxNorm: 555919 1 Tablet(s) PO BID 201610/01/2016 Inactive lovastatin 40 mg tablet RxNorm: 661606 Tablet(s) PO 07/27/2016 08/07/2017 Inactive Cipro 500 mg tablet RxNorm: 201224 1 Tablet(s) PO BID 201509/26/2015 Inactive Cipro 500 mg tablet RxNorm: 977927 1 Tablet(s) PO BID 201510/03/2015 Inactive omeprazole 20 mg capsule,delayed release RxNorm: 098705 1 Capsule(s) PO daily 07/06/2015 06/29/2016 Inactive lisinopril 10 mg-hydrochlorothiazide 12.5 mg tablet RxNorm: 430970 1 Tablet(s) PO daily 07/06/2015 10/03/2015 Inactive lovastatin 40 mg tablet RxNorm: 661612 Tablet(s) PO 12/31/2014 07/26/2016 Inactive lisinopril 10 mg-hydrochlorothiazide 12.5 mg tablet RxNorm: 219489 1 Tablet(s) PO daily 12/31/2014 03/30/2015 Inactive Ocuvite oral RxNorm: 687988 oral No Start Date Active aspirin 81 mg tablet,delayed release RxNorm: 363148 1 Tablet(s) PO daily No Start Date Active Prilosec oral RxNorm: 7646 oral No Start Date 12/07/2015 Inactive lovastatin oral RxNorm : 012754 oral No Start Date 12/30/2014 Inactive Medication Administered No Medication Administered data Immunizations Vaccine Codes Date Status Influenza CVX: 141 05/18/2015 completed Assessments Condition Codes Effective Dates Idiopathic gout, left ankle and foot ICD-10: M10.072 ICD-9: 274.9 12/05/2016 Essential (primary) hypertension ICD-10: I10 ICD-9: 401.9 12/05/2016 Dysuria ICD-10: R30.0 ICD-9: 788.1 10/02/2016 Diseases of lips ICD-10: K13.0 ICD-9: 528.5 06/06/2016 Personal history of other malignant neoplasm of bronchus and lung ICD-10: Z85.118 ICD-9: V10.11 06/06/2016 Mixed hyperlipidemia ICD-10: E78.2 ICD-9: 272.4 06/06/2016 Bicipital tendinitis, right shoulder ICD-10: M75.21 ICD-9: 726.12 12/07/2015 Pain in right shoulder ICD-10: M25.511 ICD-9: 719.41 06/29/2015 ESSENTIAL HYPERTENSION ICD-9: 401.9 12/31 HYPERLIPIDEMIA ICD-9: 272.4 12/31/2014 Reason For Visit Reason For Visit Effective Dates Notes hypertension 12/05/2016 hypertension 06/06/2016 hypertension 12/07/2015 hypertension 06/29/2015 hypertension 12/31/2014 Results Observation Observation Code Item Item Code Result Date Tsh Ord6 hTSH II 2.35 uIU/mL 08/27/2017 Cbc With Differential Ord2 WBC 6.62 K/ul 08/27/2017 Cbc With Differential Ord2 RBC 4.76 M/ul 08/27/2017 Cbc With Differential Ord2 HGB 14.9 g/dl 08/27/2017 Cbc With Differential Ord2 Neut% 58.3 % 08/27/2017 Cbc With Differential Ord2 HCT 43.2 % 08/27/2017 Cbc With Differential Ord2 MCV 90.8 fl 08/27/2017 Cbc With Differential Ord2 Lymph% 26.4 % 08/27/2017 Cbc With Differential Ord2 MCH 31.3 pg 08/27/2017 Cbc With Differential Ord2 [place]% 12.7 % 08/27/2017 Cbc With Differential Ord2 MCHC 34.5 pg 08/27/2017 Cbc With Differential Ord2 Eos% 2.0 % 08/27/2017 Cbc With Differential Ord2 PLT 315 K/ul 08/27/2017 Cbc With Differential Ord2 Baso% 0.6 % 08/27/2017 Cbc With Differential Ord2 RDW 12.6 % 08/27/2017 Cbc With Differential Ord2 Neut ABS# 3.86 K/ul 08/27/2017 Cbc With Differential Ord2 Lymph ABS# 1.75 K/ul 08/27/2017 Cbc With Differential Ord2 [place] ABS# 0.8 K/ul 08/27/2017 Cbc With Differential Ord2 Eos ABS# 0.1 K/ul 08/27/2017 Cbc With Differential Ord2 Baso ABS# 0.0 K/ul 08/27/2017 Lipid Ord30 CHOL 170 mg/dL 08/27/2017 Lipid Ord30 HDL 52.0 mg/dl 08/27/2017 Lipid Ord30 TRIG 106 mg/dL 08/27/2017 Lipid Ord30 LDL 97 mg/dL 08/27/2017 Lipid Ord30 C/HDL 3.3 Ratio 08/27/2017 Total Psa Ord10 PSA 1.09 ng/mL 08/27/2017 Comp Metabolic Wbj367 NA 136 mEq/L 08/27/2017 Comp Metabolic Idl222 K 4.2 mEq/L 08/27/2017 Comp Metabolic Wzq235 CL 98 mEq/L 08/27/2017 Comp Metabolic Uch808 CO2 26.0 mEq/L 08/27/2017 Comp Metabolic Ogo166 ANION GAP 16 08/27/2017 Comp Metabolic Nhu366 GLUCOSE 119 mg/dL 08/27/2017 Comp Metabolic Wkl179 Creat 1.2 mg/dL 08/27/2017 Comp Metabolic Yga683 eGFR 67 ml/min/1.73m2 08/27/2017 Comp Metabolic Ypc638 BUN 14 mg/dL 08/27/2017 Comp Metabolic Yep452 B/C Ratio 12.2 Ratio 08/27/2017 Comp Metabolic Lwz425 CALCIUM 9.5 mg/dL 08/27/2017 Comp Metabolic Pqb361 ALK PHOS 60 U/L 08/27/2017 Comp Metabolic Spf332 AST(SGOT) 40 U/L 08/27/2017 Comp Metabolic Isb863 ALT(SGPT) 40 U/L 08/27/2017 Comp Metabolic Uuy551 BILI T 0.6 mg/dL 08/27/2017 Comp Metabolic Oel395 ALBUMIN 4.4 g/dL 08/27/2017 Comp Metabolic Fuh031 TPRO 6.9 g/dL 08/27/2017 Comp Metabolic Owe470 GLOB 2.5 g/dL 08/27/2017 Comp Metabolic Iby095 A/G Ratio 1.7 Ratio 08/27/2017 Comp Metabolic Zba838 Osmo 274 mOsmo 08/27/2017 Comp Metabolic Dis158 NA 137 mEq/L 01/23/2017 Comp Metabolic Imj151 K 4.7 mEq/L 01/23/2017 Comp Metabolic Pym901 CL 99 mEq/L 01/23/2017 Comp Metabolic Eww654 CO2 30.0 mEq/L 01/23/2017 Comp Metabolic Mof589 ANION GAP 13 01/23/2017 Comp Metabolic Zth984 GLUCOSE 92 mg/dL 01/23/2017 Comp Metabolic Apx955 Creat 1.0 mg/dL 01/23/2017 Comp Metabolic Ggt260 eGFR 77 ml/min/1.73m2 01/23/2017 Comp Metabolic Yxg873 BUN 13 mg/dL 01/23/2017 Comp Metabolic Kvo374 B/C Ratio 12.7 Ratio 01/23/2017 Comp Metabolic Zyx251 CALCIUM 9.3 mg/dL 01/23/2017 Comp Metabolic Qro353 ALK PHOS 56 U/L 01/23/2017 Comp Metabolic Wpj497 AST(SGOT) 26 U/L 01/23/2017 Comp Metabolic Bfp373 ALT(SGPT) 25 U/L 01/23/2017 Comp Metabolic Pge321 BILI T 0.5 mg/dL 01/23/2017 Comp Metabolic Rmb024 ALBUMIN 4.2 g/dL 01/23/2017 Comp Metabolic Cpp964 TPRO 6.9 g/dL 01/23/2017 Comp Metabolic Zqz960 GLOB 2.7 g/dL 01/23/2017 Comp Metabolic Sgu853 A/G Ratio 1.5 Ratio 01/23/2017 Comp Metabolic Feq209 Osmo 274 mOsmo 01/23/2017 Cbc With Differential Ord2 WBC 8.45 K/ul 12/05/2016 Cbc With Differential Ord2 RBC 4.60 M/ul 12/05/2016 Cbc With Differential Ord2 HGB 14.5 g/dl 12/05/2016 Cbc With Differential Ord2 HCT 42.0 % 12/05/2016 Cbc With Differential Ord2 Neut% 65.1 % 12/05/2016 Cbc With Differential Ord2 Lymph% 19.5 % 12/05/2016 Cbc With Differential Ord2 MCV 91.3 fl 12/05/2016 Cbc With Differential Ord2 [place]% 13.0 % 12/05/2016 Cbc With Differential Ord2 MCH 31.5 pg 12/05/2016 Cbc With Differential Ord2 MCHC 34.5 pg 12/05/2016 Cbc With Differential Ord2 Eos% 1.9 % 12/05/2016 Cbc With Differential Ord2 PLT 277 K/ul 12/05/2016 Cbc With Differential Ord2 Baso% 0.5 % 12/05/2016 Cbc With Differential Ord2 RDW 12.6 % 12/05/2016 Cbc With Differential Ord2 Neut ABS# 5.50 K/ul 12/05/2016 Cbc With Differential Ord2 Lymph ABS# 1.65 K/ul 12/05/2016 Cbc With Differential Ord2 [place] ABS# 1.1 K/ul 12/05/2016 Cbc With Differential Ord2 Eos ABS# 0.2 K/ul 12/05/2016 Cbc With Differential Ord2 Baso ABS# 0.0 K/ul 12/05/2016 Uric Acid Ord77 Uric A 6.5 mg/dL 12/05/2016 Comp Metabolic Qkl135 NA 136 mEq/L 12/05/2016 Comp Metabolic Nfp727 K 4.4 mEq/L 12/05/2016 Comp Metabolic Ken539 CL 99 mEq/L 12/05/2016 Comp Metabolic Yxk373 CO2 28.0 mEq/L 12/05/2016 Comp Metabolic Dso854 ANION GAP 13 12/05/2016 Comp Metabolic Uzw935 GLUCOSE 84 mg/dL 12/05/2016 Comp Metabolic Anj788 Creat 1.0 mg/dL 12/05/2016 Comp Metabolic Kyo724 eGFR 84 ml/min/1.73m2 12/05/2016 Comp Metabolic Tpu665 BUN 14 mg/dL 12/05/2016 Comp Metabolic Axv723 B/C Ratio 14.7 Ratio 12/05/2016 Comp Metabolic Jdj730 CALCIUM 9.0 mg/dL 12/05/2016 Comp Metabolic Imv178 ALK PHOS 55 U/L 12/05/2016 Comp Metabolic Jai080 AST(SGOT) 26 U/L 12/05/2016 Comp Metabolic Zlu621 ALT(SGPT) 25 U/L 12/05/2016 Comp Metabolic Wlb973 BILI T 0.4 mg/dL 12/05/2016 Comp Metabolic Ncw559 ALBUMIN 4.1 g/dL 12/05/2016 Comp Metabolic Upl475 TPRO 6.8 g/dL 12/05/2016 Comp Metabolic Sum690 GLOB 2.7 g/dL 12/05/2016 Comp Metabolic Aiv502 A/G Ratio 1.5 Ratio 12/05/2016 Comp Metabolic Pug304 Osmo 272 mOsmo 12/05/2016 Comp Metabolic Fbe644 NA 136 mEq/L 11/13/2016 Comp Metabolic Tai571 K 4.2 mEq/L 11/13/2016 Comp Metabolic Hsx295 CL 98 mEq/L 11/13/2016 Comp Metabolic Gdo837 CO2 29.0 mEq/L 11/13/2016 Comp Metabolic Nyl859 ANION GAP 13 11/13/2016 Comp Metabolic Nei646 GLUCOSE 94 mg/dL 11/13/2016 Comp Metabolic Hry693 Creat 1.0 mg/dL 11/13/2016 Comp Metabolic Mfm589 eGFR 78 ml/min/1.73m2 11/13/2016 Comp Metabolic Hiw846 BUN 12 mg/dL 11/13/2016 Comp Metabolic Asq586 B/C Ratio 11.9 Ratio 11/13/2016 Comp Metabolic Pmt506 CALCIUM 9.4 mg/dL 11/13/2016 Comp Metabolic Iyp448 ALK PHOS 56 U/L 11/13/2016 Comp Metabolic Gfq828 AST(SGOT) 25 U/L 11/13/2016 Comp Metabolic Tjd084 ALT(SGPT) 25 U/L 11/13/2016 Comp Metabolic Hay659 BILI T 0.6 mg/dL 11/13/2016 Comp Metabolic Ilw930 ALBUMIN 4.2 g/dL 11/13/2016 Comp Metabolic Grk530 TPRO 6.7 g/dL 11/13/2016 Comp Metabolic Isw786 GLOB 2.5 g/dL 11/13/2016 Comp Metabolic Gaa477 A/G Ratio 1.6 Ratio 11/13/2016 Comp Metabolic Odk793 Osmo 271 mOsmo 11/13/2016 Urine Culture Ucult Preliminary NO Growth Day 1 10/04/2016 Urine Culture Ucult Complete NO Growth Day 2 10/04/2016 Lipid Ord30 CHOL 197 mg/dL 06/12/2016 Lipid Ord30 HDL 54.0 mg/dl 06/12/2016 Lipid Ord30 TRIG 105 mg/dL 06/12/2016 Lipid Ord30 LDL 122 mg/dL 06/12/2016 Lipid Ord30 C/HDL 3.6 Ratio 06/12/2016 Tsh Ord6 hTSH II 2.12 uIU/mL 06/12/2016 Total Psa Ord10 PSA 0.75 ng/mL 06/12/2016 Cbc With Differential Ord2 WBC 7.55 K/ul 06/12/2016 Cbc With Differential Ord2 RBC 4.68 M/ul 06/12/2016 Cbc With Differential Ord2 HGB 14.6 g/dl 06/12/2016 Cbc With Differential Ord2 HCT 42.4 % 06/12/2016 Cbc With Differential Ord2 Neut% 59.7 % 06/12/2016 Cbc With Differential Ord2 MCV 90.6 fl 06/12/2016 Cbc With Differential Ord2 Lymph% 22.0 % 06/12/2016 Cbc With Differential Ord2 [place]% 15.1 % 06/12/2016 Cbc With Differential Ord2 MCH 31.2 pg 06/12/2016 Cbc With Differential Ord2 Eos% 2.5 % 06/12/2016 Cbc With Differential Ord2 MCHC 34.4 pg 06/12/2016 Cbc With Differential Ord2 PLT 274 K/ul 06/12/2016 Cbc With Differential Ord2 Baso% 0.7 % 06/12/2016 Cbc With Differential Ord2 Neut ABS# 4.51 K/ul 06/12/2016 Cbc With Differential Ord2 RDW 12.8 % 06/12/2016 Cbc With Differential Ord2 Lymph ABS# 1.66 K/ul 06/12/2016 Cbc With Differential Ord2 [place] ABS# 1.1 K/ul 06/12/2016 Cbc With Differential Ord2 Eos ABS# 0.2 K/ul 06/12/2016 Cbc With Differential Ord2 Baso ABS# 0.1 K/ul 06/12/2016 Comp Metabolic Tav748 NA 132 mEq/L 06/12/2016 Comp Metabolic Dtb666 K 4.2 mEq/L 06/12/2016 Comp Metabolic Ndi743 CL 97 mEq/L 06/12/2016 Comp Metabolic Ohq485 CO2 28.0 mEq/L 06/12/2016 Comp Metabolic Ndu517 ANION GAP 11 06/12/2016 Comp Metabolic Lma535 GLUCOSE 98 mg/dL 06/12/2016 Comp Metabolic Ktm883 Creat 1.0 mg/dL 06/12/2016 Comp Metabolic Hhy345 eGFR 78 ml/min/1.73m2 06/12/2016 Comp Metabolic Hnh679 BUN 12 mg/dL 06/12/2016 Comp Metabolic Tsv033 B/C Ratio 11.9 Ratio 06/12/2016 Comp Metabolic Cqx049 CALCIUM 9.2 mg/dL 06/12/2016 Comp Metabolic Qgx201 ALK PHOS 58 U/L 06/12/2016 Comp Metabolic Dcz787 AST(SGOT) 23 U/L 06/12/2016 Comp Metabolic Isw902 ALT(SGPT) 22 U/L 06/12/2016 Comp Metabolic Beb777 BILI T 0.6 mg/dL 06/12/2016 Comp Metabolic Pky162 ALBUMIN 4.2 g/dL 06/12/2016 Comp Metabolic Gjj611 TPRO 6.8 g/dL 06/12/2016 Comp Metabolic Hxk707 GLOB 2.6 g/dL 06/12/2016 Comp Metabolic Awr943 A/G Ratio 1.6 Ratio 06/12/2016 Comp Metabolic Gaw593 Osmo 264 mOsmo 06/12/2016 Tsh Ord6 hTSH II 2.41 uIU/mL 12/21/2015 Comp Metabolic Yzd306 NA 135 mEq/L 12/21/2015 Comp Metabolic Unz391 K 4.2 mEq/L 12/21/2015 Comp Metabolic Cza296 CL 98 mEq/L 12/21/2015 Comp Metabolic Ber746 CO2 29.0 mEq/L 12/21/2015 Comp Metabolic Yts869 ANION GAP 12 12/21/2015 Comp Metabolic Bmt971 GLUCOSE 99 mg/dL 12/21/2015 Comp Metabolic Ibi542 Creat 1.1 mg/dL 12/21/2015 Comp Metabolic Nez689 eGFR 70 ml/min/1.73m2 12/21/2015 Comp Metabolic Ldr606 BUN 17 mg/dL 12/21/2015 Comp Metabolic Uyn002 B/C Ratio 15.2 Ratio 12/21/2015 Comp Metabolic Dcx230 CALCIUM 9.1 mg/dL 12/21/2015 Comp Metabolic Mjq681 ALK PHOS 60 U/L 12/21/2015 Comp Metabolic Ubl199 AST(SGOT) 23 U/L 12/21/2015 Comp Metabolic Xvt104 ALT(SGPT) 22 U/L 12/21/2015 Comp Metabolic Vna158 BILI T 0.6 mg/dL 12/21/2015 Comp Metabolic Fpm881 ALBUMIN 4.3 g/dL 12/21/2015 Comp Metabolic Bjv508 TPRO 7.0 g/dL 12/21/2015 Comp Metabolic Xjw249 GLOB 2.8 g/dL 12/21/2015 Comp Metabolic Dnr853 A/G Ratio 1.5 Ratio 12/21/2015 Comp Metabolic Guy132 Osmo 272 mOsmo 12/21/2015 Cbc With Differential Ord2 WBC 6.62 K/ul 12/21/2015 Cbc With Differential Ord2 RBC 4.76 M/ul 12/21/2015 Cbc With Differential Ord2 HGB 14.5 g/dl 12/21/2015 Cbc With Differential Ord2 Neut% 57.3 % 12/21/2015 Cbc With Differential Ord2 HCT 42.2 % 12/21/2015 Cbc With Differential Ord2 MCV 88.7 fl 12/21/2015 Cbc With Differential Ord2 Lymph% 23.9 % 12/21/2015 Cbc With Differential Ord2 MCH 30.5 pg 12/21/2015 Cbc With Differential Ord2 [place]% 15.3 % 12/21/2015 Cbc With Differential Ord2 MCHC 34.4 pg 12/21/2015 Cbc With Differential Ord2 Eos% 2.9 % 12/21/2015 Cbc With Differential Ord2 PLT 264 K/ul 12/21/2015 Cbc With Differential Ord2 Baso% 0.6 % 12/21/2015 Cbc With Differential Ord2 RDW 13.2 % 12/21/2015 Cbc With Differential Ord2 Neut ABS# 3.80 K/ul 12/21/2015 Cbc With Differential Ord2 Lymph ABS# 1.58 K/ul 12/21/2015 Cbc With Differential Ord2 [place] ABS# 1.0 K/ul 12/21/2015 Cbc With Differential Ord2 Eos ABS# 0.2 K/ul 12/21/2015 Cbc With Differential Ord2 Baso ABS# 0.0 K/ul 12/21/2015 Cbc With Differential Ord2 New Analyzer Notice Please note new ref ranges starting 08-18-2015 due to implemntation of new five part differential hematolgy analyzer. 12/21/2015 Lipid Ord30 CHOL 190 mg/dL 12/21/2015 Lipid Ord30 HDL 56.0 mg/dl 12/21/2015 Lipid Ord30 TRIG 110 mg/dL 12/21/2015 Lipid Ord30 LDL 112 mg/dL 12/21/2015 Lipid Ord30 C/HDL 3.4 Ratio 12/21/2015 Urine Culture Ucult Preliminary No Growth Day 1 09/29/2015 Urine Culture Ucult Complete No Growth Day 2 09/29/2015 Review of Systems System Result Effective Dates Constitutional No recent illness 2016 Constitutional No anorexia 12/05/2016 Constitutional No night sweats 2016 Constitutional No chills 12/05/2016 Constitutional No fatigue 12/05/2016 Constitutional No fever 12/05/2016 Constitutional No diaphoresis 12/05/2016 Constitutional No insomnia 12/05/2016 Constitutional No malaise 12/05/2016 Constitutional No weight loss 12/05/2016 Constitutional No weight gain 12/05/2016 Eyes No eye discharge 12/05/2016 Eyes No eye erythema 12/05/2016 Ears/Nose/Throat/Neck No dizziness 2016 Ears/Nose/Throat/Neck No headache 2016 Cardiovascular No chest pain/pressure 09/2016 Cardiovascular No dyspnea 12/05/2016 Cardiovascular No edema 12/05/2016 Respiratory No cough 12/05/2016 Gastrointestinal No abdominal pain 2016 Gastrointestinal No constipation 2016 Gastrointestinal No diarrhea 12/05/2016 Genitourinary/Nephrology No dysuria 12/05 Musculoskeletal joint complaint 2016 Dermatologic erythema 12/05/2016 Neurologic No alteration of consciousness 12/05/2016 Psychiatric No anxiety 12/05/2016 Endocrine No dry or coarse skin 2016 Hematologic/Lymphatic No abnormal bleeding and bruising 12/05/2016 Constitutional No recent illness 2015 Constitutional No chills 06/06/2016 Constitutional No fatigue 06/06/2016 Constitutional No fever 06/06/2016 Eyes No blindness 06/06/2016 Eyes No vision change 06/06/2016 Ears/Nose/Throat/Neck No dizziness 2015 Ears/Nose/Throat/Neck No headache 2015 Cardiovascular No chest pain/pressure 08/2015 Cardiovascular No near-syncope/dizziness 06/06/2016 Cardiovascular No palpitations 2015 Respiratory No chest congestion 2015 Respiratory No cough 06/06/2016 Gastrointestinal No abdominal pain 2015 Gastrointestinal No constipation 2015 Gastrointestinal No diarrhea 06/06/2016 Gastrointestinal No nausea 06/06/2016 Gastrointestinal No vomiting 06/06/2016 Genitourinary/Nephrology No dysuria 06/06 Musculoskeletal No stiffness 06/06/2016 Musculoskeletal No swelling 06/06/2016 Musculoskeletal No muscle weakness 2015 Musculoskeletal No myalgias 06/06/2016 Dermatologic No rash 06/06/2016 Dermatologic No scar 06/06/2016 Neurologic No alteration of consciousness 06/06/2016 Psychiatric No anxiety 06/06/2016 Psychiatric No depression 06/06/2016 Dermatologic sores 06/06/2016 Constitutional No recent illness 2015 Constitutional No chills 12/07/2015 Constitutional No fatigue 12/07/2015 Constitutional No fever 12/07/2015 Eyes No blindness 12/07/2015 Eyes No vision change 12/07/2015 Ears/Nose/Throat/Neck No dizziness 2015 Ears/Nose/Throat/Neck No headache 2015 Cardiovascular No chest pain/pressure 10/2015 Cardiovascular No near-syncope/dizziness 12/07/2015 Cardiovascular No palpitations 2015 Respiratory No chest congestion 2015 Respiratory No cough 12/07/2015 Gastrointestinal No abdominal pain 2015 Gastrointestinal No constipation 2015 Gastrointestinal No diarrhea 12/07/2015 Gastrointestinal No nausea 12/07/2015 Gastrointestinal No vomiting 12/07/2015 Genitourinary/Nephrology No dysuria 12/06 Musculoskeletal stiffness 12/07/2015 Musculoskeletal No swelling 12/07/2015 Musculoskeletal No muscle weakness 2015 Musculoskeletal No myalgias 12/07/2015 Musculoskeletal shoulder pain 12/07/2015 Dermatologic No rash 12/07/2015 Dermatologic No scar 12/07/2015 Neurologic No alteration of consciousness 12/07/2015 Psychiatric No anxiety 12/07/2015 Psychiatric No depression 12/07/2015 Constitutional No recent illness 2014 Constitutional No chills 06/29/2015 Constitutional No fatigue 06/29/2015 Constitutional No fever 06/29/2015 Eyes No blindness 06/29/2015 Eyes No vision change 06/29/2015 Ears/Nose/Throat/Neck No dizziness 2014 Ears/Nose/Throat/Neck No headache 2014 Cardiovascular No chest pain/pressure Cardiovascular No near-syncope/dizziness 06/29/2015 Cardiovascular No palpitations 2014 Respiratory No chest congestion 2014 Respiratory No cough 06/29/2015 Gastrointestinal No abdominal pain 2014 Gastrointestinal No constipation 2014 Gastrointestinal No diarrhea 06/29/2015 Gastrointestinal No nausea 06/29/2015 Gastrointestinal No vomiting 06/29/2015 Genitourinary/Nephrology No dysuria 06/29 Musculoskeletal stiffness 06/29/2015 Musculoskeletal No swelling 06/29/2015 Musculoskeletal No muscle weakness 2014 Musculoskeletal No myalgias 06/29/2015 Dermatologic No rash 06/29/2015 Dermatologic No scar 06/29/2015 Neurologic No alteration of consciousness 06/29/2015 Psychiatric No anxiety 06/29/2015 Psychiatric No depression 06/29/2015 Musculoskeletal shoulder pain 06/29/2015 Constitutional No chills 12/31/2014 Constitutional No fatigue 12/31/2014 Constitutional No fever 12/31/2014 Constitutional No recent illness 2014 Ears/Nose/Throat/Neck No dizziness 2014 Ears/Nose/Throat/Neck No headache 2014 Cardiovascular No chest pain/pressure Cardiovascular No near-syncope/dizziness 12/31/2014 Cardiovascular No palpitations 2014 Respiratory No chest congestion 2014 Respiratory No cough 12/31/2014 Gastrointestinal No abdominal pain 2014 Gastrointestinal No constipation 2014 Gastrointestinal No diarrhea 12/31/2014 Gastrointestinal No nausea 12/31/2014 Gastrointestinal No vomiting 12/31/2014 Genitourinary/Nephrology No dysuria 12/31 Neurologic No alteration of consciousness 12/31/2014 Eyes No blindness 12/31/2014 Eyes No vision change 12/31/2014 Musculoskeletal No stiffness 12/31/2014 Musculoskeletal No swelling 12/31/2014 Musculoskeletal No muscle weakness 2014 Musculoskeletal No myalgias 12/31/2014 Dermatologic No rash 12/31/2014 Dermatologic No scar 12/31/2014 Psychiatric No anxiety 12/31/2014 Psychiatric No depression 12/31/2014 Physical Exam Exam Name System Name Item Name Status Result Effective Dates Notes Full Exam - General 1994 Constitutional general appearance Development: well developed 12/05/2016 None Full Exam - General 1994 Constitutional general appearance Development: appears stated age 0512/05/2016 None Full Exam - General 1994 Constitutional general appearance Hygiene/Attention to Grooming: good hygiene 12/05/2016 None Full Exam - General 1994 Eyes conjunctiva /eyelids Overall: conjunctiva clear 12/05/2016 None Full Exam - General 1994 Eyes conjunctiva /eyelids Overall: cornea clear 12/05/2016 None Full Exam - General 1994 Eyes conjunctiva /eyelids Overall: eyelids normal 12/05/2016 None Full Exam - General 1994 Eyes pupils and irises Overall: pupils equal, round, reactive to light and accomodation 12/05/2016 None Full Exam - General 1994 Ears/Nose/Throat otoscopic exam Overall: external auditory canals clear 12/05/2016 None Full Exam - General 1994 Ears/Nose/Throat otoscopic exam Overall: tympanic membranes clear 12/05/2016 None Full Exam - General 1994 Ears/Nose/Throat lips/teeth/gingiva Overall: normal dentition 12/05/2016 None Full Exam - General 1994 Ears/Nose/Throat oral cavity/pharynx/larynx Overall: oral mucosa clear 12/05/2016 None Full Exam - General 1994 Ears/Nose/Throat oral cavity/pharynx/larynx Overall: oropharyngeal mucosa clear 12/05/2016 None Full Exam - General 1994 Ears/Nose/Throat oral cavity/pharynx/larynx Overall: hypopharynx benign 12/05/2016 None Full Exam - General 1994 Ears/Nose/Throat oral cavity/pharynx/larynx Overall: no masses 12/05/2016 None Full Exam - General 1994 Respiratory auscultation Overall: breath sounds clear bilaterally 12/05/2016 None Full Exam - General 1994 Respiratory respiratory effort/rhythm Overall: no retractions 12/05/2016 None Full Exam - General 1994 Respiratory respiratory effort/rhythm Overall: normal rate 12/05/2016 None Full Exam - General 1994 Cardiovascular extremities Overall: no clubbing 12/05/2016 None Full Exam - General 1994 Cardiovascular auscultation of heart Overall: regular rate 12/05/2016 None Full Exam - General 1994 Cardiovascular auscultation of heart Overall: normal heart sounds 12/05/2016 None Full Exam - General 1994 Abdomen abdominal exam Overall: no tenderness 12/05/2016 None Full Exam - General 1994 Abdomen abdominal exam Overall: normal bowel sounds 12/05/2016 None Full Exam - General 1994 Lymphatic neck nodes Overall: anterior cervical chain benign 12/05/2016 None Full Exam - General 1994 Lymphatic neck nodes Overall: posterior cervical chain benign 12/05/2016 None Full Exam - General 1994 Integument inspection of skin Overall: few scattered moles, no gross abnormalities 12/05/2016 None Full Exam - General 1994 Neurologic deep tendon reflexes Overall: deep tendon reflexes intact 12/05/2016 None Full Exam - General 1994 Neurologic cranial nerves Overall: crainial nerves 2 - 12 grossly intact 12/05/2016 None Full Exam - General 1994 Psychiatric orientation/consciousness Overall: oriented to person, place and time 12/05/2016 None Full Exam - General 1994 Psychiatric mood and affect Overall: normal mood and affect 12/05/2016 None Full Exam - General 1994 Musculoskeletal lower extremity Inspection - foot: redness 12/05/2016 great toe Full Exam - General 1994 Constitutional general appearance Development: well developed 06/06/2016 None Full Exam - General 1994 Constitutional general appearance Development: appears stated age 1106/06/2016 None Full Exam - General 1994 Constitutional general appearance Hygiene/Attention to Grooming: good hygiene 06/06/2016 None Full Exam - General 1994 Eyes conjunctiva /eyelids Overall: conjunctiva clear 06/06/2016 None Full Exam - General 1994 Eyes conjunctiva /eyelids Overall: cornea clear 06/06/2016 None Full Exam - General 1994 Eyes conjunctiva /eyelids Overall: eyelids normal 06/06/2016 None Full Exam - General 1994 Eyes pupils and irises Overall: pupils equal, round, reactive to light and accomodation 06/06/2016 None Full Exam - General 1994 Ears/Nose/Throat otoscopic exam Overall: external auditory canals clear 06/06/2016 None Full Exam - General 1994 Ears/Nose/Throat otoscopic exam Overall: tympanic membranes clear 06/06/2016 None Full Exam - General 1994 Ears/Nose/Throat lips/teeth/gingiva Overall: normal dentition 06/06/2016 None Full Exam - General 1994 Ears/Nose/Throat oral cavity/pharynx/larynx Overall: oral mucosa clear 06/06/2016 None Full Exam - General 1994 Ears/Nose/Throat oral cavity/pharynx/larynx Overall: oropharyngeal mucosa clear 06/06/2016 None Full Exam - General 1994 Ears/Nose/Throat oral cavity/pharynx/larynx Overall: hypopharynx benign 06/06/2016 None Full Exam - General 1994 Ears/Nose/Throat oral cavity/pharynx/larynx Overall: no masses 06/06/2016 None Full Exam - General 1994 Respiratory auscultation Overall: breath sounds clear bilaterally 06/06/2016 None Full Exam - General 1994 Respiratory respiratory effort/rhythm Overall: no retractions 06/06/2016 None Full Exam - General 1994 Respiratory respiratory effort/rhythm Overall: normal rate 06/06/2016 None Full Exam - General 1994 Cardiovascular extremities Overall: no clubbing 06/06/2016 None Full Exam - General 1994 Cardiovascular auscultation of heart Overall: regular rate 06/06/2016 None Full Exam - General 1994 Cardiovascular auscultation of heart Overall: normal heart sounds 06/06/2016 None Full Exam - General 1994 Abdomen abdominal exam Overall: no tenderness 06/06/2016 None Full Exam - General 1994 Abdomen abdominal exam Overall: normal bowel sounds 06/06/2016 None Full Exam - General 1994 Integument inspection of skin Overall: few scattered moles, no gross abnormalities 06/06/2016 None Full Exam - General 1994 Neurologic deep tendon reflexes Overall: deep tendon reflexes intact 06/06/2016 None Full Exam - General 1994 Neurologic cranial nerves Overall: crainial nerves 2 - 12 grossly intact 06/06/2016 None Full Exam - General 1994 Psychiatric orientation/consciousness Overall: oriented to person, place and time 06/06/2016 None Full Exam - General 1994 Psychiatric mood and affect Overall: normal mood and affect 06/06/2016 None Full Exam - General 1994 Ears/Nose/Throat lips/teeth/gingiva Lips: erythema 06/06/2016 AND IRRITATION OF LEFT LOWER LIP - SLIGHTLY VALVERDE ON LEFT THAN RIGHT, NO PALPABLE MASS NOTED Full Exam - General 1994 Lymphatic neck nodes Overall: anterior cervical chain benign 06/06/2016 None Full Exam - General 1994 Lymphatic neck nodes Overall: posterior cervical chain benign 06/06/2016 None Full Exam - General 1994 Constitutional general appearance Development: well developed 12/07/2015 None Full Exam - General 1994 Constitutional general appearance Development: appears stated age 0512/07/2015 None Full Exam - General 1994 Constitutional general appearance Hygiene/Attention to Grooming: good hygiene 12/07/2015 None Full Exam - General 1994 Eyes conjunctiva /eyelids Overall: conjunctiva clear 12/07/2015 None Full Exam - General 1994 Eyes conjunctiva /eyelids Overall: cornea clear 12/07/2015 None Full Exam - General 1994 Eyes conjunctiva /eyelids Overall: eyelids normal 12/07/2015 None Full Exam - General 1994 Eyes pupils and irises Overall: pupils equal, round, reactive to light and accomodation 12/07/2015 None Full Exam - General 1994 Ears/Nose/Throat otoscopic exam Overall: external auditory canals clear 12/07/2015 None Full Exam - General 1994 Ears/Nose/Throat otoscopic exam Overall: tympanic membranes clear 12/07/2015 None Full Exam - General 1994 Ears/Nose/Throat lips/teeth/gingiva Overall: benign lips 12/07/2015 None Full Exam - General 1994 Ears/Nose/Throat lips/teeth/gingiva Overall: normal dentition 12/07/2015 None Full Exam - General 1994 Ears/Nose/Throat oral cavity/pharynx/larynx Overall: oral mucosa clear 12/07/2015 None Full Exam - General 1994 Ears/Nose/Throat oral cavity/pharynx/larynx Overall: oropharyngeal mucosa clear 12/07/2015 None Full Exam - General 1994 Ears/Nose/Throat oral cavity/pharynx/larynx Overall: hypopharynx benign 12/07/2015 None Full Exam - General 1994 Ears/Nose/Throat oral cavity/pharynx/larynx Overall: no masses 12/07/2015 None Full Exam - General 1994 Respiratory auscultation Overall: breath sounds clear bilaterally 12/07/2015 None Full Exam - General 1994 Respiratory respiratory effort/rhythm Overall: no retractions 12/07/2015 None Full Exam - General 1994 Respiratory respiratory effort/rhythm Overall: normal rate 12/07/2015 None Full Exam - General 1994 Cardiovascular extremities Overall: no clubbing 12/07/2015 None Full Exam - General 1994 Cardiovascular auscultation of heart Overall: regular rate 12/07/2015 None Full Exam - General 1994 Cardiovascular auscultation of heart Overall: normal heart sounds 12/07/2015 None Full Exam - General 1994 Abdomen abdominal exam Overall: no tenderness 12/07/2015 None Full Exam - General 1994 Abdomen abdominal exam Overall: normal bowel sounds 12/07/2015 None Full Exam - General 1994 Musculoskeletal upper extremity ROM - shoulder: crepitus 12/07/2015 None Full Exam - General 1994 Integument inspection of skin Overall: few scattered moles, no gross abnormalities 12/07/2015 None Full Exam - General 1994 Neurologic deep tendon reflexes Overall: deep tendon reflexes intact 12/07/2015 None Full Exam - General 1994 Neurologic cranial nerves Overall: crainial nerves 2 - 12 grossly intact 12/07/2015 None Full Exam - General 1994 Psychiatric orientation/consciousness Overall: oriented to person, place and time 12/07/2015 None Full Exam - General 1994 Psychiatric mood and affect Overall: normal mood and affect 12/07/2015 None Full Exam - General 1994 Constitutional general appearance Development: well developed 06/29/2015 None Full Exam - General 1994 Constitutional general appearance Development: appears stated age 1106/29/2015 None Full Exam - General 1994 Constitutional general appearance Hygiene/Attention to Grooming: good hygiene 06/29/2015 None Full Exam - General 1994 Eyes conjunctiva /eyelids Overall: conjunctiva clear 06/29/2015 None Full Exam - General 1994 Eyes conjunctiva /eyelids Overall: cornea clear 06/29/2015 None Full Exam - General 1994 Eyes conjunctiva /eyelids Overall: eyelids normal 06/29/2015 None Full Exam - General 1994 Eyes pupils and irises Overall: pupils equal, round, reactive to light and accomodation 06/29/2015 None Full Exam - General 1994 Ears/Nose/Throat otoscopic exam Overall: external auditory canals clear 06/29/2015 None Full Exam - General 1994 Ears/Nose/Throat otoscopic exam Overall: tympanic membranes clear 06/29/2015 None Full Exam - General 1994 Ears/Nose/Throat lips/teeth/gingiva Overall: benign lips 06/29/2015 None Full Exam - General 1994 Ears/Nose/Throat lips/teeth/gingiva Overall: normal dentition 06/29/2015 None Full Exam - General 1994 Ears/Nose/Throat oral cavity/pharynx/larynx Overall: oral mucosa clear 06/29/2015 None Full Exam - General 1994 Ears/Nose/Throat oral cavity/pharynx/larynx Overall: oropharyngeal mucosa clear 06/29/2015 None Full Exam - General 1994 Ears/Nose/Throat oral cavity/pharynx/larynx Overall: hypopharynx benign 06/29/2015 None Full Exam - General 1994 Ears/Nose/Throat oral cavity/pharynx/larynx Overall: no masses 06/29/2015 None Full Exam - General 1994 Respiratory auscultation Overall: breath sounds clear bilaterally 06/29/2015 None Full Exam - General 1994 Respiratory respiratory effort/rhythm Overall: no retractions 06/29/2015 None Full Exam - General 1994 Respiratory respiratory effort/rhythm Overall: normal rate 06/29/2015 None Full Exam - General 1994 Cardiovascular extremities Overall: no clubbing 06/29/2015 None Full Exam - General 1994 Cardiovascular auscultation of heart Overall: regular rate 06/29/2015 None Full Exam - General 1994 Cardiovascular auscultation of heart Overall: normal heart sounds 06/29/2015 None Full Exam - General 1994 Abdomen abdominal exam Overall: no tenderness 06/29/2015 None Full Exam - General 1994 Abdomen abdominal exam Overall: normal bowel sounds 06/29/2015 None Full Exam - General 1994 Integument inspection of skin Overall: few scattered moles, no gross abnormalities 06/29/2015 None Full Exam - General 1994 Neurologic deep tendon reflexes Overall: deep tendon reflexes intact 06/29/2015 None Full Exam - General 1994 Neurologic cranial nerves Overall: crainial nerves 2 - 12 grossly intact 06/29/2015 None Full Exam - General 1994 Psychiatric orientation/consciousness Overall: oriented to person, place and time 06/29/2015 None Full Exam - General 1994 Psychiatric mood and affect Overall: normal mood and affect 06/29/2015 None Full Exam - General 1994 Musculoskeletal upper extremity ROM - shoulder: crepitus 06/29/2015 None Full Exam - General 1994 Constitutional general appearance Development: appears stated age 0512/31/2014 None Full Exam - General 1994 Constitutional general appearance Development: well developed 12/31/2014 None Full Exam - General 1994 Constitutional general appearance Hygiene/Attention to Grooming: good hygiene 12/31/2014 None Full Exam - General 1994 Eyes conjunctiva /eyelids Overall: conjunctiva clear 12/31/2014 None Full Exam - General 1994 Eyes conjunctiva /eyelids Overall: cornea clear 12/31/2014 None Full Exam - General 1994 Eyes conjunctiva /eyelids Overall: eyelids normal 12/31/2014 None Full Exam - General 1994 Eyes pupils and irises Overall: pupils equal, round, reactive to light and accomodation 12/31/2014 None Full Exam - General 1994 Ears/Nose/Throat otoscopic exam Overall: external auditory canals clear 12/31/2014 None Full Exam - General 1994 Ears/Nose/Throat otoscopic exam Overall: tympanic membranes clear 12/31/2014 None Full Exam - General 1994 Ears/Nose/Throat lips/teeth/gingiva Overall: benign lips 12/31/2014 None Full Exam - General 1994 Ears/Nose/Throat lips/teeth/gingiva Overall: normal dentition 12/31/2014 None Full Exam - General 1994 Ears/Nose/Throat oral cavity/pharynx/larynx Overall: hypopharynx benign 12/31/2014 None Full Exam - General 1994 Ears/Nose/Throat oral cavity/pharynx/larynx Overall: no masses 12/31/2014 None Full Exam - General 1994 Ears/Nose/Throat oral cavity/pharynx/larynx Overall: oral mucosa clear 12/31/2014 None Full Exam - General 1994 Ears/Nose/Throat oral cavity/pharynx/larynx Overall: oropharyngeal mucosa clear 12/31/2014 None Full Exam - General 1994 Respiratory auscultation Overall: breath sounds clear bilaterally 12/31/2014 None Full Exam - General 1994 Respiratory respiratory effort/rhythm Overall: no retractions 12/31/2014 None Full Exam - General 1994 Respiratory respiratory effort/rhythm Overall: normal rate 12/31/2014 None Full Exam - General 1994 Cardiovascular extremities Overall: no clubbing 12/31/2014 None Full Exam - General 1994 Cardiovascular auscultation of heart Overall: normal heart sounds 12/31/2014 None Full Exam - General 1994 Cardiovascular auscultation of heart Overall: regular rate 12/31/2014 None Full Exam - General 1994 Abdomen abdominal exam Overall: no tenderness 12/31/2014 None Full Exam - General 1994 Abdomen abdominal exam Overall: normal bowel sounds 12/31/2014 None Full Exam - General 1994 Integument inspection of skin Overall: few scattered moles, no gross abnormalities 12/31/2014 None Full Exam - General 1994 Neurologic deep tendon reflexes Overall: deep tendon reflexes intact 12/31/2014 None Full Exam - General 1994 Neurologic cranial nerves Overall: crainial nerves 2 - 12 grossly intact 12/31/2014 None Full Exam - General 1994 Psychiatric orientation/consciousness Overall: oriented to person, place and time 12/31/2014 None Full Exam - General 1994 Psychiatric mood and affect Overall: normal mood and affect 12/31/2014 None Procedures Procedure Codes Date URINALYSIS NONAUTO W/O SCOPE CPT-4: 49299 10/02/2016 URINALYSIS NONAUTO W/O SCOPE CPT-4: 35672 09/27/2015 Vital Signs Date Vital 12/05/2016 Blood Pressure 1: 140/78 Code : 8480-6 BMI: 28.6 Code : 32987-0 Heart Rate 1 : 98 bpm Height: 5'10" SpO2: 96% Weight: 199 lbs 06/06/2016 Blood Pressure 1: 142/80 Code : 8480-6 BMI: 28.7 Code : 01540-4 Heart Rate 1 : 95 bpm Height: 5'10" SpO2: 97% Weight: 200 lbs 12/07/2015 Blood Pressure 1: 132/78 Code : 8480-6 BMI: 28.6 Code : 24863-4 Heart Rate 1 : 81 bpm Height: 5'10" SpO2: 97% Weight: 199 lbs 06/29/2015 Blood Pressure 1: 118/76 Code : 8480-6 BMI: 28.7 Code : 45404-5 Heart Rate 1 : 98 bpm Height: 5'10" SpO2: 98% Weight: 200 lbs 12/31/2014 Blood Pressure 1: 132/72 Code : 8480-6 BMI: 28.6 Code : 05369-5 Heart Rate 1 : 75 bpm Height: 5'10" SpO2: 95% Weight: 199 lbs Functional Status No Functional Status data History of Present Illness Symptom Name Status Result Effective Date Notes hypertension Onset and Resolution ongoing 12/05/2016 None hypertension Onset of Symptom during adulthood 12/05/2016 None hypertension Blood Pressure Values not checking blood pressure at home 12/05/2016 None hypertension Alleviating Factors medication 12/05/2016 None hypertension Pertinent Findings Denies dizziness 12/05/2016 None hypertension Pertinent Findings Denies dyspnea 12/05/2016 None hypertension Pertinent Findings Denies edema 12/05/2016 None hypertension Pertinent Findings Denies decreased energy 12/05/2016 None hypertension Pertinent Findings palpitations 12/05/2016 None gout possible Pertinent Findings redness 12/05/2016 None gout possible Pertinent Findings warmth 12/05/2016 None gout possible Pertinent Findings swelling 12/05/2016 None hypertension Onset and Resolution ongoing 06/06/2016 None hypertension Onset of Symptom during adulthood 06/06/2016 None hypertension Alleviating Factors medication 06/06/2016 None hypertension Pertinent Findings Denies dizziness 06/06/2016 None hypertension Pertinent Findings Denies dyspnea 06/06/2016 None hypertension Pertinent Findings Denies edema 06/06/2016 None shoulder pain Location on the right shoulder 06/06/2016 None shoulder pain Limitation on Activities does not limit activities 06/06/2016 None shoulder pain Pertinent Findings Denies limited range of motion 06/06/2016 None shoulder pain Pertinent Findings Denies loss of strength 06/06/2016 None hypertension Blood Pressure Values not checking blood pressure at home 06/06/2016 None shoulder pain Quality intermittent 06/06/2016 None hyperlipidemia Onset and Resolution gradual in onset 06/06/2016 None hyperlipidemia Onset and Resolution ongoing 06/06/2016 None hyperlipidemia Onset of Symptom during adulthood 06/06/2016 None hyperlipidemia Alleviating Factors medication 06/06/2016 None hyperlipidemia Exacerbating Factors diet 06/06/2016 None skin lesion Onset and Resolution ongoing 06/06/2016 None skin lesion Onset of Symptom 6 months ago 06/06/2016 None skin lesion Location on the lower lip 06/06/2016 None hypertension Blood Pressure Values patient checking blood pressure at home - did not bring in readings 12/07/2015 occassional home testing hypertension Pertinent Findings Denies dizziness 12/07/2015 None hypertension Pertinent Findings Denies dyspnea 12/07/2015 None shoulder pain Location on the right shoulder 12/07/2015 None shoulder pain Quality intermittent 12/07/2015 None shoulder pain Onset and Resolution waxing and waning 12/07/2015 None shoulder pain Limitation on Activities does not limit activities 12/07/2015 None shoulder pain Pertinent Findings Denies limited range of motion 12/07/2015 None shoulder pain Pertinent Findings Denies loss of strength 12/07/2015 None hypertension Onset and Resolution ongoing 12/07/2015 None hypertension Onset of Symptom during adulthood 12/07/2015 None hypertension Pertinent Findings Denies edema 12/07/2015 None hypertension Alleviating Factors medication 12/07/2015 None shoulder pain Quality improving 12/07/2015 None hypertension Quality intermittent 06/29/2015 None hypertension Blood Pressure Values patient checking blood pressure at home - did not bring in readings 06/29/2015 occassional home testing hypertension Pertinent Findings dizziness 06/29/2015 occ when standing up hypertension Pertinent Findings Denies dyspnea 06/29/2015 None shoulder pain Location on the right shoulder 06/29/2015 None shoulder pain Onset and Resolution ongoing 06/29/2015 None shoulder pain Onset and Resolution waxing and waning 06/29/2015 None shoulder pain Quality intermittent 06/29/2015 None shoulder pain Limitation on Activities does not limit activities 06/29/2015 None shoulder pain Mechanism of injury _ 06/29/2015 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, 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 shoulder 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 Pertinent Findings Denies limited range of motion 06/29/2015 None shoulder pain Pertinent Findings Denies loss of strength 06/29/2015 None hypertension Quality intermittent 12/31/2014 None hypertension Blood Pressure Values patient checking blood pressure at home - did not bring in readings 12/31/2014 occassional home testing hypertension Pertinent Findings dizziness 12/31/2014 occ when standing up hypertension Pertinent Findings Denies dyspnea 12/31/2014 None hyperlipidemia Onset and Resolution ongoing 12/31/2014 None hyperlipidemia Quality stable 12/31/2014 None tinnitus Location on both sides 12/31/2014 None tinnitus Onset and Resolution ongoing 12/31/2014 None tinnitus Length of Episodes years 12/31/2014 [place] and has had ear damage from no hearing protection Advance Directives No Advance Directive data Encounters Encounter Performer Location Codes Date ([id number]) [id number] EST. 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 PATIENT, LEVEL IV Diagnosis: Essential (primary) hypertension[ICD10: I10] Diagnosis: Mixed hyperlipidemia[ICD10: E78.2] Diagnosis: Personal history of other malignant neoplasm of bronchus and lung[ ICD10: Z85.118] Diagnosis: Diseases of lips[ICD10: K13.0] Vianney Lane MD, [facility] CPT- 4: 67593 06/06/2016 ([id number]) [id number] EST. PATIENT, LEVEL IV Diagnosis: Essential (primary) hypertension[ICD10: I10] Diagnosis: Mixed hyperlipidemia[ICD10: E78.2] Diagnosis: Bicipital tendinitis, right shoulder[ICD10: M75.21] Vianney Lane MD, [facility] CPT-4: 99118 12/07/2015 ([id number]) [id number] EST. PATIENT, LEVEL IV Diagnosis: Essential (primary) hypertension[ICD10: I10] Diagnosis: Pain in right shoulder[ICD10: M25.511] Vianney Lane MD, [facility] CPT-4: 84462 06/29/2015 ([id number]) OFFICE VISIT, NEW - LEVEL 4 Diagnosis: ESSENTIAL HYPERTENSION[ICD9: 401.9] Diagnosis: HYPERLIPIDEMIA[ICD9: 272.4] Vianney Lane MD, [facility] CPT- 4: 66816 12/31/2014 Plan of Care Planned Activity Notes Codes Status Date Visit Plan: Hypertension - well controlled - continue with current medications, continue with no added salt diet. Pt has been encouraged to exercise daily. The pt has been advised to call the office if there are any acute concerns about change in blood pressure readings at home. Gout Attack - pt given RX for uric Acid Level, and rx for medication for treatment of symptoms. Pt to call if symptoms do not improve, and pt to be given results of labs when available. 12/05/2016 Appointment: Aydee Gallardo WPtel: [address] [place], [place] [phone] (30 min) [facility] 12/05/2016 Patient Education: Patient Medication Summary Completed 12/05/2016 Appointment: Aydee Gallardo WPtel: [facility] (30 min) Complex 12/04/2016 Appointment: Lab Draw 10/02/2016 Patient Education: Patient Medication Summary Completed 10/02/2016 Referral: Austin Li [facility] Patient informed. Referral info faxed. Completed 06/22/2016 Visit Plan: Hypertension - well controlled - continue with current medications, continue with no added salt diet. Pt has been encouraged to exercise daily. The pt has been advised to call the office if there are any acute concerns about change in blood pressure readings at home. Hyperlipidemia - pt has been counseled about appropriate diet, exercise, and need for low fat food choices. I have discussed the need for the patient to take medications as prescribed. If the patient has negative side effects from the medication, they are to CALL the office and not abruptly discontinue the medication without discussion with a practitioner in the office. We will check labs in 3-6 months for follow up on the patient's chronic medical problem and to assure normal liver response to medications. Hx of lung cancer - pt due for screening chest xray Skin lesion - left lip - referral to dr. li Pt is due for labs - order given to pt 06/06/2016 Appointment: Vianney Lane WPtel: [facility] (15 min) Moderate 06/06/2016 Patient Education: Patient Medication Summary Completed 06/06/2016 Patient Education: Hypertension Completed 06/06/2016 Care Plan: Referral Order SNOMED-CT : [id number] Pending 06/06/2016 Visit Plan: Hypertension - well controlled - continue with current medications, continue with no added salt diet. Pt has been encouraged to exercise daily. The pt has been advised to call the office if there are any acute concerns about change in blood pressure readings at home. Hyperlipidemia - pt has been counseled about appropriate diet, exercise, and need for low fat food choices. I have discussed the need for the patient to take medications as prescribed. If the patient has negative side effects from the medication, they are to CALL the office and not abruptly discontinue the medication without discussion with a practitioner in the office. We will check labs in 3-6 months for follow up on the patient's chronic medical problem and to assure normal liver response to medications. Biceps tendinitis - pt to do exercises as directed, ant-inflammatories OTC directed to be taken per RX instructions and pt to call if symptoms are not improved. 12/07/2015 App[facility]ment: [facility] [facility] (15 min) Moderate 12/07/2015 Patient Education: Patient Medication Summary Completed 12/07/2015 Appointment: Lab Draw 09/27/2015 Patient Education: Patient Medication Summary Completed 09/27/2015 Visit Plan: Hypertension - well controlled - continue with current medications, continue with no added salt diet. Pt has been encouraged to exercise daily. The pt has been advised to call the office if there are any acute concerns about change in blood pressure readings at home. Arthritis- occasionally uncontrolled symptoms- recommend pt to take antiinflammatory as directed for pain control. Use tylenol for break through pain symptoms. 06/29/2015 Patient Education: Patient Medication Summary Completed 06/29/2015 Patient Education: Hypertension Completed 06/29/2015 Visit Plan: Hypertension - well controlled - continue with current medications, continue with no added salt diet. Pt has been encouraged to exercise daily. The pt has been advised to call the office if there are any acute concerns about change in blood pressure readings at home. Hyperlipidemia - pt has been counseled about appropriate diet, exercise, and need for low fat food choices. I have discussed the need for the patient to take medications as prescribed. If the patient has negative side effects from the medication, they are to CALL the office and not abruptly discontinue the medication without discussion with a practitioner in the office. We will check labs in 3-6 months for follow up on the patient's chronic medical problem and to assure normal liver response to medications. 12/31/2014 Appointment: Vianney Lane [facility]Ptel[facility] [place] New Patient 12/31/2014 Patient Education: Patient Medication Summary Completed 12/31/2014 Patient Education: Hypertension Completed 12/31/2014 Referral: Austin Li [facility] Referral Appointment Requested Instructions Comment Monitor your blood pressure at home and record. Bring in your readings to your next appointment, or as directed. Call for chest pain, shortness of breath, headaches, or other concerns. . Hypertension - well controlled - continue with current medications, continue with no added salt diet. Pt has been encouraged to exercise daily. The pt has been advised to call the office if there are any acute concerns about change in blood pressure readings at home. Hyperlipidemia - pt has been counseled about appropriate diet, exercise, and need for low fat food choices. I have discussed the need for the patient to take medications as prescribed. If the patient has negative side effects from the medication, they are to CALL the office and not abruptly discontinue the medication without discussion with a practitioner in the office. We will check labs in 3-6 months for follow up on the patient's chronic medical problem and to assure normal liver response to medications. . Hypertension - well controlled - continue with current medications, continue with no added salt diet. Pt has been encouraged to exercise daily. The pt has been advised to call the office if there are any acute concerns about change in blood pressure readings at home. Hyperlipidemia - pt has been counseled about appropriate diet, exercise, and need for low fat food choices. I have discussed the need for the patient to take medications as prescribed. If the patient has negative side effects from the medication, they are to CALL the office and not abruptly discontinue the medication without discussion with a practitioner in the office. We will check labs in 3-6 months for follow up on the patient's chronic medical problem and to assure normal liver response to medications. Hx of lung cancer - pt due for screening chest xray Skin lesion - left lip - referral to dr. li Pt is due for labs - order given to pt two old goats - muscle rub from [employer] and home . Hypertension - well controlled - continue with current medications, continue with no added salt diet. Pt has been encouraged to exercise daily. The pt has been advised to call the office if there are any acute concerns about change in blood pressure readings at home. Hyperlipidemia - pt has been counseled about appropriate diet, exercise, and need for low fat food choices. I have discussed the need for the patient to take medications as prescribed. If the patient has negative side effects from the medication, they are to CALL the office and not abruptly discontinue the medication without discussion with a practitioner in the office. We will check labs in 3-6 months for follow up on the patient's chronic medical problem and to assure normal liver response to medications. Biceps tendinitis - pt to do exercises as directed, ant-inflammatories OTC directed to be taken per RX instructions and pt to call if symptoms are not improved. . Hypertension - well controlled - continue with current medications, continue with no added salt diet. Pt has been encouraged to exercise daily. The pt has been advised to call the office if there are any acute concerns about change in blood pressure readings at home. Arthritis- occasionally uncontrolled symptoms- recommend pt to take antiinflammatory as directed for pain control. Use tylenol for break through pain symptoms. . Hypertension - well controlled - continue with current medications, continue with no added salt diet. Pt has been encouraged to exercise daily. The pt has been advised to call the office if there are any acute concerns about change in blood pressure readings at home. Gout Attack - pt given RX for uric Acid Level, and rx for medication for treatment of symptoms. Pt to call if symptoms do not improve, and pt to be given results of labs when available.
--- OUTSIDE RECORDS SUMMARY | 2018-04-04 10:10 | XMS REPORT | CCD ---
Author Author Vianney Lane Organization [facility] Address [address] [place] [address] Phone Care Team Providers Care Hide Or Skin Buffer Name Role Phone PP Unavailable CCM Unavailable Summary Purpose Interface Exchange Insurance Providers Payer name Policy type / Coverage type Covered constitution party ID Effective Begin Date Effective End Date [employer] [employer] Medicare Part B [id number] Unknown Unknown [facility] [employer] [facility] Medicare Part B [id number] Unknown Unknown Family history Father Diagnosis Age At Onset Cancer Unknown Mother Diagnosis Age At Onset Hypertension Unknown Hyperlipidemia Unknown Social History Social History Element Codes Description Effective Dates Marital status Unknown Yelena 12/31/2014 Number of children Unknown 0 12/31/2014 Employment Unknown Retired 12/31/[address]: 2383368 Quit over 10 years ago 200012/31/[address]: 300019 Currently drinks alcohol 12/31/2014 Frequency of drinks SNOMED CT: 194132026 7 drinks per week 12/31/2014 Allergies, Adverse [...] Start Date Stop Date Status Fill Instructions Coreg 3.125 mg tablet RxNorm: 059422 1 Tablet(s) PO BID 201703/31/2018 Active Coreg 3.125 mg tablet RxNorm: 936172 1 Tablet(s) PO BID 201709/02/2017 Inactive doxycycline hyclate 100 mg capsule RxNorm: 6084516 1 Capsule(s) PO BID 08/27/2017 09/02/2017 Inactive lovastatin 40 mg tablet RxNorm: 099425 1 Tablet(s) PO daily 10/201712/05/2017 Active omeprazole 20 mg capsule,delayed release RxNorm: 733911 1 Capsule(s) PO daily 07/23/2017 07/17/2018 Active lisinopril 10 mg-hydrochlorothiazide 12.5 mg tablet RxNorm: 273845 1 Tablet(s) PO daily 07/09/2017 04/04/2018 Active patient needs to call the office to schedule appt fluorouracil 5 % topical cream RxNorm: 885126 1 Gram(s) TOP BID x2 weeks ONLY 03/26/2017 04/08/2017 Inactive fluorouracil 5 % topical cream RxNorm: 639856 1 Gram(s) TOP BID x2 weeks ONLY 03/26/2017 03/25/2017 Inactive Colcrys 0.6 mg tablet RxNorm: 618539 2 Tablet(s) PO UD 2016 No Stop Date Active 2 tabs today then 1 tab daily x 5 days then prn gout lisinopril 10 mg-hydrochlorothiazide 12.5 mg tablet RxNorm: 166901 1 Tablet(s) PO daily 10/12/2016 07/08/2017 Inactive Cipro 500 mg tablet RxNorm: 410379 1 Tablet(s) PO BID 201610/08/2016 Inactive Cipro 500 mg tablet RxNorm: 325085 1 Tablet(s) PO BID 201610/01/2016 Inactive lovastatin 40 mg tablet RxNorm: 015834 Tablet(s) PO 07/27/2016 08/07/2017 Inactive Cipro 500 mg tablet RxNorm: 802809 1 Tablet(s) PO BID 201509/26/2015 Inactive Cipro 500 mg tablet RxNorm: 261460 1 Tablet(s) PO BID 201510/03/2015 Inactive omeprazole 20 mg capsule,delayed release RxNorm: 196903 1 Capsule(s) PO daily 07/06/2015 06/29/2016 Inactive lisinopril 10 mg-hydrochlorothiazide 12.5 mg tablet RxNorm: 116912 1 Tablet(s) PO daily 07/06/2015 10/03/2015 Inactive lovastatin 40 mg tablet RxNorm: 642183 Tablet(s) PO 12/31/2014 07/26/2016 Inactive lisinopril 10 mg-hydrochlorothiazide 12.5 mg tablet RxNorm: 821796 1 Tablet(s) PO daily 12/31/2014 03/30/2015 Inactive Ocuvite oral RxNorm: 321933 oral No Start Date Active aspirin 81 mg tablet,delayed release RxNorm: 861290 1 Tablet(s) PO daily No Start Date Active Prilosec oral RxNorm: 7646 oral No Start Date 12/07/2015 Inactive lovastatin oral RxNorm : 426907 oral No Start Date 12/30/2014 Inactive Medication [...] 31.3 pg 08/27/2017 Cbc With Differential Ord2 [place]% 12.7 % 08/27/2017 Cbc With Differential Ord2 [...] 1.75 K/ul 08/27/2017 Cbc With Differential Ord2 [place] ABS# 0.8 K/ul 08/27/2017 Cbc With Differential Ord2 Eos ABS# 0.1 K/ul 08/27/2017 Cbc With Differential Ord2 Baso ABS# 0.0 K/ul 08/27/2017 Lipid Ord30 CHOL 170 mg/dL 08/27/2017 Lipid Ord30 HDL 52.0 mg/dl 08/27/2017 Lipid Ord30 TRIG 106 mg/dL 08/27/2017 Lipid Ord30 LDL 97 mg/dL 08/27/2017 Lipid Ord30 C/HDL 3.3 Ratio 08/27/2017 Total Psa Ord10 PSA 1.09 ng/mL 08/27/2017 Comp Metabolic Eqf006 NA 136 mEq/L 08/27/2017 Comp Metabolic Njd371 K 4.2 mEq/L 08/27/2017 Comp Metabolic Gqu857 CL 98 mEq/L 08/27/2017 Comp Metabolic Fkv172 CO2 26.0 mEq/L 08/27/2017 Comp Metabolic Hhn908 ANION GAP 16 08/27/2017 Comp Metabolic Snt936 GLUCOSE 119 mg/dL 08/27/2017 Comp Metabolic Gds065 Creat 1.2 mg/dL 08/27/2017 Comp Metabolic Izc354 eGFR 67 ml/min/1.73m2 08/27/2017 Comp Metabolic Hhr016 BUN 14 mg/dL 08/27/2017 Comp Metabolic Wnm446 B/C Ratio 12.2 Ratio 08/27/2017 Comp Metabolic Tvu262 CALCIUM 9.5 mg/dL 08/27/2017 Comp Metabolic Gnl430 ALK PHOS 60 U/L 08/27/2017 Comp Metabolic Yay296 AST(SGOT) 40 U/L 08/27/2017 Comp Metabolic Gvv295 ALT(SGPT) 40 U/L 08/27/2017 Comp Metabolic Cqo761 BILI T 0.6 mg/dL 08/27/2017 Comp Metabolic Mje628 ALBUMIN 4.4 g/dL 08/27/2017 Comp Metabolic Lek258 TPRO 6.9 g/dL 08/27/2017 Comp Metabolic Jbr608 GLOB 2.5 g/dL 08/27/2017 Comp Metabolic Yzc307 A/G Ratio 1.7 Ratio 08/27/2017 Comp Metabolic Van712 Osmo 274 mOsmo 08/27/2017 Comp Metabolic Rnw221 NA 137 mEq/L 01/23/2017 Comp Metabolic Imr237 K 4.7 mEq/L 01/23/2017 Comp Metabolic Rjy396 CL 99 mEq/L 01/23/2017 Comp Metabolic Opp196 CO2 30.0 mEq/L 01/23/2017 Comp Metabolic Vod216 ANION GAP 13 01/23/2017 Comp Metabolic Uba007 GLUCOSE 92 mg/dL 01/23/2017 Comp Metabolic Yag572 Creat 1.0 mg/dL 01/23/2017 Comp Metabolic Ubg887 eGFR 77 ml/min/1.73m2 01/23/2017 Comp Metabolic Ixb661 BUN 13 mg/dL 01/23/2017 Comp Metabolic Nsc338 B/C Ratio 12.7 Ratio 01/23/2017 Comp Metabolic Jfu087 CALCIUM 9.3 mg/dL 01/23/2017 Comp Metabolic Rtm207 ALK PHOS 56 U/L 01/23/2017 Comp Metabolic Ecc593 AST(SGOT) 26 U/L 01/23/2017 Comp Metabolic Ynw042 ALT(SGPT) 25 U/L 01/23/2017 Comp Metabolic Leo129 BILI T 0.5 mg/dL 01/23/2017 Comp Metabolic Thv026 ALBUMIN 4.2 g/dL 01/23/2017 Comp Metabolic Avc041 TPRO 6.9 g/dL 01/23/2017 Comp Metabolic Fdu591 GLOB 2.7 g/dL 01/23/2017 Comp Metabolic Ujc245 A/G Ratio 1.5 Ratio 01/23/2017 Comp Metabolic Wcb598 Osmo 274 mOsmo 01/23/2017 Cbc With Differential Ord2 WBC 8.45 K/ul 12/05/2016 Cbc With Differential Ord2 RBC 4.60 M/ul 12/05/2016 Cbc With Differential Ord2 HGB 14.5 g/dl 12/05/2016 Cbc With Differential Ord2 Neut% 65.1 % 12/05/2016 Cbc With Differential Ord2 HCT 42.0 % 12/05/2016 Cbc With Differential Ord2 MCV 91.3 fl 12/05/2016 Cbc With Differential Ord2 Lymph% 19.5 % 12/05/2016 Cbc With Differential Ord2 MCH 31.5 pg 12/05/2016 Cbc With Differential Ord2 [place]% 13.0 % 12/05/2016 Cbc With Differential Ord2 MCHC 34.5 pg 12/05/2016 Cbc With Differential Ord2 Eos% 1.9 % 12/05/2016 Cbc With Differential Ord2 Baso% 0.5 % 12/05/2016 Cbc With Differential Ord2 PLT 277 K/ul 12/05/2016 Cbc With Differential Ord2 RDW 12.6 % 12/05/2016 Cbc With Differential Ord2 Neut ABS# 5.50 K/ul 12/05/2016 Cbc With Differential Ord2 Lymph ABS# 1.65 K/ul 12/05/2016 Cbc With Differential Ord2 [place] ABS# 1.1 K/ul 12/05/2016 Cbc With Differential Ord2 Eos ABS# 0.2 K/ul 12/05/2016 Cbc With Differential Ord2 Baso ABS# 0.0 K/ul 12/05/2016 Uric Acid Ord77 Uric A 6.5 mg/dL 12/05/2016 Comp Metabolic Pug933 NA 136 mEq/L 12/05/2016 Comp Metabolic Qtr131 K 4.4 mEq/L 12/05/2016 Comp Metabolic Cdq467 CL 99 mEq/L 12/05/2016 Comp Metabolic Tup515 CO2 28.0 mEq/L 12/05/2016 Comp Metabolic Aaw448 ANION GAP 13 12/05/2016 Comp Metabolic Fii910 GLUCOSE 84 mg/dL 12/05/2016 Comp Metabolic Pdz575 Creat 1.0 mg/dL 12/05/2016 Comp Metabolic Rbh483 eGFR 84 ml/min/1.73m2 12/05/2016 Comp Metabolic Tlv918 BUN 14 mg/dL 12/05/2016 Comp Metabolic Xik129 B/C Ratio 14.7 Ratio 12/05/2016 Comp Metabolic Uvl650 CALCIUM 9.0 mg/dL 12/05/2016 Comp Metabolic Juv561 ALK PHOS 55 U/L 12/05/2016 Comp Metabolic Wnj428 AST(SGOT) 26 U/L 12/05/2016 Comp Metabolic Nma816 ALT(SGPT) 25 U/L 12/05/2016 Comp Metabolic Tbs867 BILI T 0.4 mg/dL 12/05/2016 Comp Metabolic Wjr657 ALBUMIN 4.1 g/dL 12/05/2016 Comp Metabolic Ikb842 TPRO 6.8 g/dL 12/05/2016 Comp Metabolic Pdq118 GLOB 2.7 g/dL 12/05/2016 Comp Metabolic Mje017 A/G Ratio 1.5 Ratio 12/05/2016 Comp Metabolic Qnt141 Osmo 272 mOsmo 12/05/2016 Comp Metabolic Jay091 NA 136 mEq/L 11/13/2016 Comp Metabolic Yva359 K 4.2 mEq/L 11/13/2016 Comp Metabolic Sjn533 CL 98 mEq/L 11/13/2016 Comp Metabolic Zay609 CO2 29.0 mEq/L 11/13/2016 Comp Metabolic Gxu036 ANION GAP 13 11/13/2016 Comp Metabolic Ouf822 GLUCOSE 94 mg/dL 11/13/2016 Comp Metabolic Gvt120 Creat 1.0 mg/dL 11/13/2016 Comp Metabolic Fvk255 eGFR 78 ml/min/1.73m2 11/13/2016 Comp Metabolic Sav223 BUN 12 mg/dL 11/13/2016 Comp Metabolic Kzp589 B/C Ratio 11.9 Ratio 11/13/2016 Comp Metabolic Lqp472 CALCIUM 9.4 mg/dL 11/13/2016 Comp Metabolic Pez748 ALK PHOS 56 U/L 11/13/2016 Comp Metabolic Kge124 AST(SGOT) 25 U/L 11/13/2016 Comp Metabolic Pdp071 ALT(SGPT) 25 U/L 11/13/2016 Comp Metabolic Gud755 BILI T 0.6 mg/dL 11/13/2016 Comp Metabolic Xdr482 ALBUMIN 4.2 g/dL 11/13/2016 Comp Metabolic Tqm571 TPRO 6.7 g/dL 11/13/2016 Comp Metabolic Ytc492 GLOB 2.5 g/dL 11/13/2016 Comp Metabolic Ywx645 A/G Ratio 1.6 Ratio 11/13/2016 Comp Metabolic Fsv938 Osmo 271 mOsmo 11/13/2016 Urine Culture Ucult Complete NO Growth Day 2 10/04/2016 Urine Culture Ucult Preliminary NO Growth Day 1 10/04/2016 Lipid Ord30 CHOL 197 mg/dL 06/12/2016 [...] 59.7 % 06/12/2016 Cbc With Differential Ord2 Lymph% 22.0 % 06/12/2016 Cbc With Differential Ord2 MCV 90.6 fl 06/12/2016 Cbc With Differential Ord2 MCH 31.2 pg 06/12/2016 Cbc With Differential Ord2 [place]% 15.1 % 06/12/2016 Cbc With Differential Ord2 Eos% 2.5 % 06/12/2016 Cbc With Differential Ord2 MCHC 34.4 pg 06/12/2016 Cbc With Differential Ord2 PLT 274 K/ul 06/12/2016 Cbc With Differential Ord2 Baso% 0.7 % 06/12/2016 Cbc With Differential Ord2 Neut ABS# 4.51 K/ul 06/12/2016 Cbc With Differential Ord2 RDW 12.8 % 06/12/2016 Cbc With Differential Ord2 Lymph ABS# 1.66 K/ul 06/12/2016 Cbc With Differential Ord2 [place] ABS# 1.1 K/ul 06/12/2016 Cbc With Differential Ord2 Eos ABS# 0.2 K/ul 06/12/2016 Cbc With Differential Ord2 Baso ABS# 0.1 K/ul 06/12/2016 Comp Metabolic Vxk392 NA 132 mEq/L 06/12/2016 Comp Metabolic Oxe660 K 4.2 mEq/L 06/12/2016 Comp Metabolic Skx025 CL 97 mEq/L 06/12/2016 Comp Metabolic Deb311 CO2 28.0 mEq/L 06/12/2016 Comp Metabolic Pyc866 ANION GAP 11 06/12/2016 Comp Metabolic Kvc139 GLUCOSE 98 mg/dL 06/12/2016 Comp Metabolic Qzn602 Creat 1.0 mg/dL 06/12/2016 Comp Metabolic Klq643 eGFR 78 ml/min/1.73m2 06/12/2016 Comp Metabolic Vpg047 BUN 12 mg/dL 06/12/2016 Comp Metabolic Ffv845 B/C Ratio 11.9 Ratio 06/12/2016 Comp Metabolic Bpt181 CALCIUM 9.2 mg/dL 06/12/2016 Comp Metabolic Wjh860 ALK PHOS 58 U/L 06/12/2016 Comp Metabolic Acn776 AST(SGOT) 23 U/L 06/12/2016 Comp Metabolic Fzc010 ALT(SGPT) 22 U/L 06/12/2016 Comp Metabolic Kti842 BILI T 0.6 mg/dL 06/12/2016 Comp Metabolic Eno377 ALBUMIN 4.2 g/dL 06/12/2016 Comp Metabolic Cff050 TPRO 6.8 g/dL 06/12/2016 Comp Metabolic Str430 GLOB 2.6 g/dL 06/12/2016 Comp Metabolic Wja114 A/G Ratio 1.6 Ratio 06/12/2016 Comp Metabolic Fxx158 Osmo 264 mOsmo 06/12/2016 Tsh Ord6 hTSH II 2.41 uIU/mL 12/21/2015 Comp Metabolic Gdp503 NA 135 mEq/L 12/21/2015 Comp Metabolic Mfu340 K 4.2 mEq/L 12/21/2015 Comp Metabolic Jno960 CL 98 mEq/L 12/21/2015 Comp Metabolic Ozp563 CO2 29.0 mEq/L 12/21/2015 Comp Metabolic Uet910 ANION GAP 12 12/21/2015 Comp Metabolic Dwt773 GLUCOSE 99 mg/dL 12/21/2015 Comp Metabolic Wsh280 Creat 1.1 mg/dL 12/21/2015 Comp Metabolic Plm404 eGFR 70 ml/min/1.73m2 12/21/2015 Comp Metabolic Zdb330 BUN 17 mg/dL 12/21/2015 Comp Metabolic Das997 B/C Ratio 15.2 Ratio 12/21/2015 Comp Metabolic Jjw854 CALCIUM 9.1 mg/dL 12/21/2015 Comp Metabolic Tgm515 ALK PHOS 60 U/L 12/21/2015 Comp Metabolic Xnk841 AST(SGOT) 23 U/L 12/21/2015 Comp Metabolic Gey645 ALT(SGPT) 22 U/L 12/21/2015 Comp Metabolic Xnm095 BILI T 0.6 mg/dL 12/21/2015 Comp Metabolic Wgz232 ALBUMIN 4.3 g/dL 12/21/2015 Comp Metabolic Ksd225 TPRO 7.0 g/dL 12/21/2015 Comp Metabolic Upm949 GLOB 2.8 g/dL 12/21/2015 Comp Metabolic Cci486 A/G Ratio 1.5 Ratio 12/21/2015 Comp Metabolic Tmu065 Osmo 272 mOsmo 12/21/2015 Cbc With Differential Ord2 WBC 6.62 K/ul 12/21/2015 Cbc With Differential Ord2 RBC 4.76 M/ul 12/21/2015 Cbc With Differential Ord2 HGB 14.5 g/dl 12/21/2015 Cbc With Differential Ord2 HCT 42.2 % 12/21/2015 Cbc With Differential Ord2 Neut% 57.3 % 12/21/2015 Cbc With Differential Ord2 MCV 88.7 fl 12/21/2015 Cbc With Differential Ord2 Lymph% 23.9 % 12/21/2015 Cbc With Differential Ord2 MCH 30.5 pg 12/21/2015 Cbc With Differential Ord2 [place]% 15.3 % 12/21/2015 Cbc With Differential Ord2 Eos% 2.9 % 12/21/2015 Cbc With Differential Ord2 MCHC 34.4 pg 12/21/2015 Cbc With Differential Ord2 PLT 264 K/ul 12/21/2015 Cbc With Differential Ord2 Baso% 0.6 % 12/21/2015 Cbc With Differential Ord2 Neut ABS# 3.80 K/ul 12/21/2015 Cbc With Differential Ord2 RDW 13.2 % 12/21/2015 Cbc With Differential Ord2 Lymph ABS# 1.58 K/ul 12/21/2015 Cbc With Differential Ord2 [place] ABS# 1.0 K/ul 12/21/2015 Cbc With Differential [...] C/HDL 3.4 Ratio 12/21/2015 Urine Culture Ucult Complete No Growth Day 2 09/29/2015 Urine Culture Ucult Preliminary No Growth Day 1 09/29/2015 Review of Systems System Result Effective [...] Codes Date URINALYSIS NONAUTO W/O SCOPE CPT-4: 04232 10/02/2016 URINALYSIS NONAUTO W/O SCOPE CPT-4: 10247 09/27/2015 Vital Signs Date Vital 12/05/2016 Blood Pressure 1: 140/78 Code : 8480-6 BMI: 28.6 Code : 77407-5 Heart Rate 1 : 98 bpm Height: 5'10" SpO2: 96% Weight: 199 lbs 06/06/2016 Blood Pressure 1: 142/80 Code : 8480-6 BMI: 28.7 Code : 52341-3 Heart Rate 1 : 95 bpm Height: 5'10" SpO2: 97% Weight: 200 lbs 12/07/2015 Blood Pressure 1: 132/78 Code : 8480-6 BMI: 28.6 Code : 11634-7 Heart Rate 1 : 81 bpm Height: 5'10" SpO2: 97% Weight: 199 lbs 06/29/2015 Blood Pressure 1: 118/76 Code : 8480-6 BMI: 28.7 Code : 25428-1 Heart Rate 1 : 98 bpm Height: 5'10" SpO2: 98% Weight: 200 lbs 12/31/2014 Blood Pressure 1: 132/72 Code : 8480-6 BMI: 28.6 Code : 80830-5 Heart Rate 1 : 75 bpm Height: [...] of injury _ 06/29/2015 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, fpc wear and tear shoulder pain Pertinent Findings [...] data Encounters Encounter Performer Location Codes Date () 88812 EST. PATIENT, LEVEL III Diagnosis: Essential (primary) hypertension[ICD10: I10] Diagnosis: Idiopathic gout, left ankle and foot[ICD10: M10.072] [facility] CPT-4: 32298 12/05/2016 ([id number]) 52400 EST. PATIENT, LEVEL IV Diagnosis: Essential (primary) hypertension[ICD10: I10] Diagnosis: Mixed hyperlipidemia[ICD10: E78.2] Diagnosis: Personal history of other malignant neoplasm of bronchus and lung[ ICD10: Z85.118] Diagnosis: Diseases of lips[ICD10: K13.0] [facility] CPT- 4: 41029 06/06/2016 ([id number]) 42468 EST. PATIENT, LEVEL IV Diagnosis: Essential (primary) hypertension[ICD10: I10] Diagnosis: Mixed hyperlipidemia[ICD10: E78.2] Diagnosis: Bicipital tendinitis, right shoulder[ICD10: M75.21] [facility] CPT-4: 67990 12/07/2015 ([id number]) 79746 EST. PATIENT, LEVEL IV Diagnosis: Essential (primary) hypertension[ICD10: I10] Diagnosis: Pain in right shoulder[ICD10: M25.511] [facility] CPT-4: 69847 06/29/2015 ([id number]) OFFICE VISIT, NEW - LEVEL 4 Diagnosis: ESSENTIAL HYPERTENSION[ICD9: 401.9] Diagnosis: HYPERLIPIDEMIA[ICD9: 272.4] [facility] CPT- 4: 95132 12/31/2014 Plan of Care Planned Activity Notes Codes Status Date Appointment: Kati Appiah WPtel: [address] [place], [place] [phone] (15 min) Moderate 08/27/2017 Visit Plan: Hypertension - well controlled - [...] when available. 12/05/2016 Appointment: Aydee Gallardo WPtel: [facility]8 [address] (30 min) Complex 12/05/2016 Patient Education: Patient Medication Summary Completed 12/05/2016 Appointment: Aydee Gallardo WPtel: [phone] [phone] [place] [address] (30 min) Complex 12/04/2016 Appointment: Lab Draw 10/02/2016 Patient Education: Patient Medication Summary Completed 10/02/2016 Referral: Austin Li [address] Patient informed. Referral info faxed. Completed 06/22/2016 [...] to pt 06/06/2016 Appointment: Vianney Lane WPtel: [facility]0 [facility] (15 min) Moderate 06/06/2016 Patient Education: Patient Medication Summary Completed 06/06/2016 Patient Education: Hypertension Completed 06/06/2016 Care Plan: Referral Order SNOMED-CT : [id number] Pending 06/06/2016 Visit Plan: Hypertension - well [...] symptoms are not improved. 12/07/2015 Appointment: Vianney Lane WPtel[facility] (15 min) Moderate 12/07/2015 Patient Education: Patient [...] to medications. 12/31/2014 App[facility]ment: [facility]ian[phone] [facility] [place] New Patient 12/31/2014 Patient Education: Patient Medication Summary Completed 12/31/2014 Patient Education: Hypertension Completed 12/31/2014 [facility] Referral Appointment Requested Instructions Comment Monitor your [...] two old goats - muscle rub from [employer] and home . Hypertension - well controlled [...]
--- OUTSIDE RECORDS SUMMARY | 2018-04-04 10:12 | XMS REPORT | CCD ---
Author Author [facility]ney [facility] Organization [facility] Address [address] [place] [address] Phone Care Team Providers Care Basketball Referee Name Role Phone PP Unavailable CCM Unavailable Summary Purpose Interface Exchange Insurance Providers Payer name Policy type / Coverage type Covered constitution party ID Effective Begin Date Effective End Date [employer] Medicare Part B [id number] Unknown Unknown [facility] Medicare Part B [id number] Unknown Unknown Family history Father Diagnosis Age At Onset Cancer Unknown Mother Diagnosis Age At Onset Hypertension Unknown Hyperlipidemia Unknown Social History Social History Element Codes Description Effective Dates Marital status Unknown Yelena 12/31/2014 Number of children Unknown 0 12/31/2014 Employment Unknown Retired 12/31/[address]: 7997175 Quit over 10 years ago 200012/31/[address]: 791730 Currently drinks alcohol 12/31/2014 Frequency of drinks SNOMED CT: 813332102 7 drinks per week 12/31/2014 Allergies, Adverse Reactions, Alerts Allergies, Adverse Reactions, Alerts data not found Past Medical History Illness Codes Condition Status Onset Date Resolved Date Essential (primary) hypertension ICD-9: 401.1 ICD-10: I10 Active 09/03/2017 Unknown Bitten by dog, initial encounter ICD-9: 879.8 ICD-10: W54.0XXA Active 08/27/2017 Unknown Essential (primary) hypertension ICD-9: 401.9 ICD-10: I10 [...] Dates Condition Status Essential (primary) hypertension ICD-9: 401.1 ICD-10: I10 09/03/2017 Active Bitten by dog, initial encounter ICD-9: 879.8 ICD-10: W54.0XXA 08/27/2017 Active Essential (primary) hypertension ICD-9: 401.9 ICD-10: I10 [...] Start Date Stop Date Status Fill Instructions doxycycline hyclate 100 mg capsule RxNorm: 8763923 1 Capsule(s) PO BID 09/11/2017 09/17/2017 Active Coreg 3.125 mg tablet RxNorm: 885311 1 Tablet(s) PO BID 201703/31/2018 Active Coreg 3.125 mg tablet RxNorm: 963358 1 Tablet(s) PO BID 201709/02/2017 Inactive doxycycline hyclate 100 mg capsule RxNorm: 2835158 1 Capsule(s) PO BID 08/27/2017 09/02/2017 Inactive lovastatin 40 mg tablet RxNorm: 038422 1 Tablet(s) PO daily 10/201712/05/2017 Active omeprazole 20 mg capsule,delayed release RxNorm: 689604 1 Capsule(s) PO daily 07/23/2017 07/17/2018 Active lisinopril 10 mg-hydrochlorothiazide 12.5 mg tablet RxNorm: 102288 1 Tablet(s) PO daily 07/09/2017 04/04/2018 Active patient needs to call the office to schedule appt fluorouracil 5 % topical cream RxNorm: 905886 1 Gram(s) TOP BID x2 weeks ONLY 03/26/2017 04/08/2017 Inactive fluorouracil 5 % topical cream RxNorm: 494379 1 Gram(s) TOP BID x2 weeks ONLY 03/26/2017 03/25/2017 Inactive Colcrys 0.6 mg tablet RxNorm: 362847 2 Tablet(s) PO UD 2016 No Stop Date Active 2 tabs today then 1 tab daily x 5 days then prn gout lisinopril 10 mg-hydrochlorothiazide 12.5 mg tablet RxNorm: 477797 1 Tablet(s) PO daily 10/12/2016 07/08/2017 Inactive Cipro 500 mg tablet RxNorm: 078127 1 Tablet(s) PO BID 201610/08/2016 Inactive Cipro 500 mg tablet RxNorm: 807218 1 Tablet(s) PO BID 201610/01/2016 Inactive lovastatin 40 mg tablet RxNorm: 002997 Tablet(s) PO 07/27/2016 08/07/2017 Inactive Cipro 500 mg tablet RxNorm: 644601 1 Tablet(s) PO BID 201509/26/2015 Inactive Cipro 500 mg tablet RxNorm: 418123 1 Tablet(s) PO BID 201510/03/2015 Inactive omeprazole 20 mg capsule,delayed release RxNorm: 382096 1 Capsule(s) PO daily 07/06/2015 06/29/2016 Inactive lisinopril 10 mg-hydrochlorothiazide 12.5 mg tablet RxNorm: 627024 1 Tablet(s) PO daily 07/06/2015 10/03/2015 Inactive lovastatin 40 mg tablet RxNorm: 454105 Tablet(s) PO 12/31/2014 07/26/2016 Inactive lisinopril 10 mg-hydrochlorothiazide 12.5 mg tablet RxNorm: 430135 1 Tablet(s) PO daily 12/31/2014 03/30/2015 Inactive Ocuvite oral RxNorm: 949931 oral No Start Date Active aspirin 81 mg tablet,delayed release RxNorm: 537593 1 Tablet(s) PO daily No Start Date Active Prilosec oral RxNorm: 7646 oral No Start Date 12/07/2015 Inactive lovastatin oral RxNorm : 909313 oral No Start Date 12/30/2014 Inactive Medication Administered No Medication Administered data Immunizations Vaccine Codes Date Status Influenza CVX: 141 05/18/2015 completed Assessments Condition Codes Effective Dates Essential (primary) hypertension ICD-10: I10 ICD-9: 401.1 09/03/2017 Essential (primary) hypertension ICD-10: I10 ICD-9: 401.9 08/27/2017 Bitten by dog, initial encounter ICD-10: W54.0XXA ICD-9: 879.8 08/27/2017 Idiopathic gout, left ankle and foot ICD-10: M10.072 ICD-9: 274.9 12/05/2016 Dysuria ICD-10: R30.0 ICD-9: 788.1 10/02/2016 [...] Reason For Visit Effective Dates Notes hypertension 09/03/2017 hypertension 08/27/2017 ER follow up - dog bite L elbow hypertension 12/05/2016 hypertension 06/06/2016 hypertension 12/07/2015 hypertension [...] 31.3 pg 08/27/2017 Cbc With Differential Ord2 Ellis% 12.7 % 08/27/2017 Cbc With Differential Ord2 [...] 1.75 K/ul 08/27/2017 Cbc With Differential Ord2 Ellis ABS# 0.8 K/ul 08/27/2017 Cbc With Differential Ord2 Eos ABS# 0.1 K/ul 08/27/2017 Cbc With Differential Ord2 Baso ABS# 0.0 K/ul 08/27/2017 Lipid Ord30 CHOL 170 mg/dL 08/27/2017 Lipid Ord30 HDL 52.0 mg/dl 08/27/2017 Lipid Ord30 TRIG 106 mg/dL 08/27/2017 Lipid Ord30 LDL 97 mg/dL 08/27/2017 Lipid Ord30 C/HDL 3.3 Ratio 08/27/2017 Total Psa Ord10 PSA 1.09 ng/mL 08/27/2017 Comp Metabolic Pmu616 NA 136 mEq/L 08/27/2017 Comp Metabolic Zua492 K 4.2 mEq/L 08/27/2017 Comp Metabolic Pit155 CL 98 mEq/L 08/27/2017 Comp Metabolic Dyw899 CO2 26.0 mEq/L 08/27/2017 Comp Metabolic Sdh698 ANION GAP 16 08/27/2017 Comp Metabolic Yiw729 GLUCOSE 119 mg/dL 08/27/2017 Comp Metabolic Qne758 Creat 1.2 mg/dL 08/27/2017 Comp Metabolic Khg793 eGFR 67 ml/min/1.73m2 08/27/2017 Comp Metabolic Idl728 BUN 14 mg/dL 08/27/2017 Comp Metabolic Pyl972 B/C Ratio 12.2 Ratio 08/27/2017 Comp Metabolic Jak617 CALCIUM 9.5 mg/dL 08/27/2017 Comp Metabolic Qqa313 ALK PHOS 60 U/L 08/27/2017 Comp Metabolic Hhk456 AST(SGOT) 40 U/L 08/27/2017 Comp Metabolic Ewg504 ALT(SGPT) 40 U/L 08/27/2017 Comp Metabolic Jxf060 BILI T 0.6 mg/dL 08/27/2017 Comp Metabolic Fqq882 ALBUMIN 4.4 g/dL 08/27/2017 Comp Metabolic Dzj091 TPRO 6.9 g/dL 08/27/2017 Comp Metabolic Lub788 GLOB 2.5 g/dL 08/27/2017 Comp Metabolic Vqy585 A/G Ratio 1.7 Ratio 08/27/2017 Comp Metabolic Mzi529 Osmo 274 mOsmo 08/27/2017 Comp Metabolic Ihm774 NA 137 mEq/L 01/23/2017 Comp Metabolic Xte517 K 4.7 mEq/L 01/23/2017 Comp Metabolic Hxd245 CL 99 mEq/L 01/23/2017 Comp Metabolic Jnf954 CO2 30.0 mEq/L 01/23/2017 Comp Metabolic Xiq346 ANION GAP 13 01/23/2017 Comp Metabolic Hwd149 GLUCOSE 92 mg/dL 01/23/2017 Comp Metabolic Xma036 Creat 1.0 mg/dL 01/23/2017 Comp Metabolic Oym926 eGFR 77 ml/min/1.73m2 01/23/2017 Comp Metabolic Dfu989 BUN 13 mg/dL 01/23/2017 Comp Metabolic Nzr976 B/C Ratio 12.7 Ratio 01/23/2017 Comp Metabolic Obk573 CALCIUM 9.3 mg/dL 01/23/2017 Comp Metabolic Blg618 ALK PHOS 56 U/L 01/23/2017 Comp Metabolic Mgu347 AST(SGOT) 26 U/L 01/23/2017 Comp Metabolic Unk224 ALT(SGPT) 25 U/L 01/23/2017 Comp Metabolic Czs549 BILI T 0.5 mg/dL 01/23/2017 Comp Metabolic Yyj199 ALBUMIN 4.2 g/dL 01/23/2017 Comp Metabolic Mev563 TPRO 6.9 g/dL 01/23/2017 Comp Metabolic Zyx124 GLOB 2.7 g/dL 01/23/2017 Comp Metabolic Hua945 A/G Ratio 1.5 Ratio 01/23/2017 Comp Metabolic Tch914 Osmo 274 mOsmo 01/23/2017 Cbc With Differential [...] 91.3 fl 12/05/2016 Cbc With Differential Ord2 Ellis% 13.0 % 12/05/2016 Cbc With Differential Ord2 [...] 1.65 K/ul 12/05/2016 Cbc With Differential Ord2 Ellis ABS# 1.1 K/ul 12/05/2016 Cbc With Differential Ord2 Eos ABS# 0.2 K/ul 12/05/2016 Cbc With Differential Ord2 Baso ABS# 0.0 K/ul 12/05/2016 Uric Acid Ord77 Uric A 6.5 mg/dL 12/05/2016 Comp Metabolic Hqy492 NA 136 mEq/L 12/05/2016 Comp Metabolic Evs926 K 4.4 mEq/L 12/05/2016 Comp Metabolic Fkm175 CL 99 mEq/L 12/05/2016 Comp Metabolic Xfb237 CO2 28.0 mEq/L 12/05/2016 Comp Metabolic Ayx442 ANION GAP 13 12/05/2016 Comp Metabolic Vqd841 GLUCOSE 84 mg/dL 12/05/2016 Comp Metabolic Cob621 Creat 1.0 mg/dL 12/05/2016 Comp Metabolic Eqt920 eGFR 84 ml/min/1.73m2 12/05/2016 Comp Metabolic Xsz723 BUN 14 mg/dL 12/05/2016 Comp Metabolic Hks671 B/C Ratio 14.7 Ratio 12/05/2016 Comp Metabolic Ygk878 CALCIUM 9.0 mg/dL 12/05/2016 Comp Metabolic Ypt720 ALK PHOS 55 U/L 12/05/2016 Comp Metabolic Kld940 AST(SGOT) 26 U/L 12/05/2016 Comp Metabolic Ecw244 ALT(SGPT) 25 U/L 12/05/2016 Comp Metabolic Mgu213 BILI T 0.4 mg/dL 12/05/2016 Comp Metabolic Ygg192 ALBUMIN 4.1 g/dL 12/05/2016 Comp Metabolic Dox124 TPRO 6.8 g/dL 12/05/2016 Comp Metabolic Jjn456 GLOB 2.7 g/dL 12/05/2016 Comp Metabolic Fyg414 A/G Ratio 1.5 Ratio 12/05/2016 Comp Metabolic Efc147 Osmo 272 mOsmo 12/05/2016 Comp Metabolic Zjj529 NA 136 mEq/L 11/13/2016 Comp Metabolic Fiz221 K 4.2 mEq/L 11/13/2016 Comp Metabolic Yvl561 CL 98 mEq/L 11/13/2016 Comp Metabolic Gup280 CO2 29.0 mEq/L 11/13/2016 Comp Metabolic Epf997 ANION GAP 13 11/13/2016 Comp Metabolic Njs285 GLUCOSE 94 mg/dL 11/13/2016 Comp Metabolic Ktm607 Creat 1.0 mg/dL 11/13/2016 Comp Metabolic Epq754 eGFR 78 ml/min/1.73m2 11/13/2016 Comp Metabolic Bxr493 BUN 12 mg/dL 11/13/2016 Comp Metabolic Pvn584 B/C Ratio 11.9 Ratio 11/13/2016 Comp Metabolic Zbi166 CALCIUM 9.4 mg/dL 11/13/2016 Comp Metabolic Rio837 ALK PHOS 56 U/L 11/13/2016 Comp Metabolic Par607 AST(SGOT) 25 U/L 11/13/2016 Comp Metabolic Ich335 ALT(SGPT) 25 U/L 11/13/2016 Comp Metabolic Jci868 BILI T 0.6 mg/dL 11/13/2016 Comp Metabolic Aoa352 ALBUMIN 4.2 g/dL 11/13/2016 Comp Metabolic Mpb912 TPRO 6.7 g/dL 11/13/2016 Comp Metabolic Acc845 GLOB 2.5 g/dL 11/13/2016 Comp Metabolic Pyu823 A/G Ratio 1.6 Ratio 11/13/2016 Comp Metabolic Nzc858 Osmo 271 mOsmo 11/13/2016 Urine Culture Ucult [...] 22.0 % 06/12/2016 Cbc With Differential Ord2 Ellis% 15.1 % 06/12/2016 Cbc With Differential Ord2 [...] 1.66 K/ul 06/12/2016 Cbc With Differential Ord2 Ellis ABS# 1.1 K/ul 06/12/2016 Cbc With Differential Ord2 Eos ABS# 0.2 K/ul 06/12/2016 Cbc With Differential Ord2 Baso ABS# 0.1 K/ul 06/12/2016 Comp Metabolic Zfm542 NA 132 mEq/L 06/12/2016 Comp Metabolic Wwn084 K 4.2 mEq/L 06/12/2016 Comp Metabolic Mcz181 CL 97 mEq/L 06/12/2016 Comp Metabolic Bbu626 CO2 28.0 mEq/L 06/12/2016 Comp Metabolic Mcc772 ANION GAP 11 06/12/2016 Comp Metabolic Asy485 GLUCOSE 98 mg/dL 06/12/2016 Comp Metabolic Nxx559 Creat 1.0 mg/dL 06/12/2016 Comp Metabolic Kkf197 eGFR 78 ml/min/1.73m2 06/12/2016 Comp Metabolic Ztz339 BUN 12 mg/dL 06/12/2016 Comp Metabolic Sgq148 B/C Ratio 11.9 Ratio 06/12/2016 Comp Metabolic Gkv142 CALCIUM 9.2 mg/dL 06/12/2016 Comp Metabolic Nrc890 ALK PHOS 58 U/L 06/12/2016 Comp Metabolic Uwa183 AST(SGOT) 23 U/L 06/12/2016 Comp Metabolic Mfn514 ALT(SGPT) 22 U/L 06/12/2016 Comp Metabolic Btu419 BILI T 0.6 mg/dL 06/12/2016 Comp Metabolic Etf222 ALBUMIN 4.2 g/dL 06/12/2016 Comp Metabolic Vzv530 TPRO 6.8 g/dL 06/12/2016 Comp Metabolic Xau578 GLOB 2.6 g/dL 06/12/2016 Comp Metabolic Xnu528 A/G Ratio 1.6 Ratio 06/12/2016 Comp Metabolic Apk411 Osmo 264 mOsmo 06/12/2016 Tsh Ord6 hTSH II 2.41 uIU/mL 12/21/2015 Comp Metabolic Dkq860 NA 135 mEq/L 12/21/2015 Comp Metabolic Fkm422 K 4.2 mEq/L 12/21/2015 Comp Metabolic Vne122 CL 98 mEq/L 12/21/2015 Comp Metabolic Rky233 CO2 29.0 mEq/L 12/21/2015 Comp Metabolic Pws518 ANION GAP 12 12/21/2015 Comp Metabolic Txw161 GLUCOSE 99 mg/dL 12/21/2015 Comp Metabolic Xia376 Creat 1.1 mg/dL 12/21/2015 Comp Metabolic Ylz069 eGFR 70 ml/min/1.73m2 12/21/2015 Comp Metabolic Ppw217 BUN 17 mg/dL 12/21/2015 Comp Metabolic Hqr246 B/C Ratio 15.2 Ratio 12/21/2015 Comp Metabolic Nhw030 CALCIUM 9.1 mg/dL 12/21/2015 Comp Metabolic Ipf348 ALK PHOS 60 U/L 12/21/2015 Comp Metabolic Pfc552 AST(SGOT) 23 U/L 12/21/2015 Comp Metabolic Glv368 ALT(SGPT) 22 U/L 12/21/2015 Comp Metabolic Bsm598 BILI T 0.6 mg/dL 12/21/2015 Comp Metabolic Fbl022 ALBUMIN 4.3 g/dL 12/21/2015 Comp Metabolic Aca170 TPRO 7.0 g/dL 12/21/2015 Comp Metabolic Wqr747 GLOB 2.8 g/dL 12/21/2015 Comp Metabolic Smj267 A/G Ratio 1.5 Ratio 12/21/2015 Comp Metabolic Jmi241 Osmo 272 mOsmo 12/21/2015 Cbc With Differential [...] 30.5 pg 12/21/2015 Cbc With Differential Ord2 Ellis% 15.3 % 12/21/2015 Cbc With Differential Ord2 [...] 1.58 K/ul 12/21/2015 Cbc With Differential Ord2 Ellis ABS# 1.0 K/ul 12/21/2015 Cbc With Differential [...] Result Effective Dates Constitutional No recent illness 2017 Constitutional No chills 08/27/2017 Constitutional No diaphoresis 08/27/2017 Constitutional No fever 08/27/2017 Eyes No eye discharge 08/27/2017 Eyes No eye erythema 08/27/2017 Cardiovascular No chest pain/pressure Cardiovascular No dyspnea 08/27/2017 Respiratory No cough 08/27/2017 Gastrointestinal No abdominal pain 2017 Gastrointestinal No constipation 2017 Gastrointestinal No diarrhea 08/27/2017 Musculoskeletal joint complaint 2017 Neurologic No alteration of consciousness 08/27/2017 Ears/Nose/Throat/Neck No nasal discharge 08/27/2017 Dermatologic sores 08/27/2017 Neurologic No mental status change 2017 Constitutional No recent illness 2016 Constitutional No [...] general appearance Hygiene/Attention to Grooming: good hygiene 08/27/2017 None Full Exam - General 1994 Eyes conjunctiva /eyelids Overall: conjunctiva clear 08/27/2017 None Full Exam - General 1994 Eyes conjunctiva /eyelids Overall: cornea clear 08/27/2017 None Full Exam - General 1994 Eyes conjunctiva /eyelids Overall: eyelids normal 08/27/2017 None Full Exam - General 1994 Eyes pupils and irises Overall: pupils equal, round, reactive to light and accomodation 08/27/2017 None Full Exam - General 1994 Ears/Nose/Throat otoscopic exam Overall: external auditory canals clear 08/27/2017 None Full Exam - General 1994 Ears/Nose/Throat otoscopic exam Overall: tympanic membranes clear 08/27/2017 None Full Exam - General 1994 Ears/Nose/Throat oral cavity/pharynx/larynx Overall: oral mucosa clear 08/27/2017 None Full Exam - General 1994 Ears/Nose/Throat oral cavity/pharynx/larynx Overall: oropharyngeal mucosa clear 08/27/2017 None Full Exam - General 1994 Respiratory auscultation Overall: breath sounds clear bilaterally 08/27/2017 None Full Exam - General 1994 Respiratory respiratory effort/rhythm Overall: no retractions 08/27/2017 None Full Exam - General 1994 Respiratory respiratory effort/rhythm Overall: normal rate 08/27/2017 None Full Exam - General 1994 Cardiovascular extremities Overall: no clubbing 08/27/2017 None Full Exam - General 1994 Cardiovascular auscultation of heart Overall: regular rate 08/27/2017 None Full Exam - General 1994 Cardiovascular auscultation of heart Overall: normal heart sounds 08/27/2017 None Full Exam - General 1994 Abdomen abdominal exam Overall: no tenderness 08/27/2017 None Full Exam - General 1994 Abdomen abdominal exam Overall: normal bowel sounds 08/27/2017 None Full Exam - General 1994 Neurologic deep tendon reflexes Overall: deep tendon reflexes intact 08/27/2017 None Full Exam - General 1994 Neurologic cranial nerves Overall: crainial nerves 2 - 12 grossly intact 08/27/2017 None Full Exam - General 1994 Psychiatric orientation/consciousness Overall: oriented to person, place and time 08/27/2017 None Full Exam - General 1994 Psychiatric mood and affect Overall: normal mood and affect 08/27/2017 None Full Exam - General 1994 Constitutional general appearance Overall: well developed 08/27/2017 None Full Exam - General 1994 Constitutional general appearance Overall: in no acute distress 08/27/2017 None Full Exam - General 1994 Constitutional general appearance Overall: well nourished 08/27/2017 None Full Exam - General 1994 Ears/Nose/Throat lips/teeth/gingiva Overall: benign lips 08/27/2017 None Full Exam - General 1994 Integument inspection of skin Location: left arm 08/27/2017 elbow - dog bite - with minimal erythema, and edema noted Full Exam - General 1994 Constitutional general [...] Codes Date URINALYSIS NONAUTO W/O SCOPE CPT-4: 74679 10/02/2016 URINALYSIS NONAUTO W/O SCOPE CPT-4: 96187 09/27/2015 Vital Signs Date Vital 08/27/2017 Blood Pressure 1: 126/70 Code : 8480-6 BMI: 29.8 Code : 96755-1 Heart Rate 1 : 107 bpm Height: 5'10 " SpO2: 96% Weight: 208 lbs 12/05/2016 Blood Pressure 1: 140/78 Code : 8480-6 BMI: 28.6 Code : 30315-8 Heart Rate 1 : 98 bpm Height: 5'10" SpO2: 96% Weight: 199 lbs 06/06/2016 Blood Pressure 1: 142/80 Code : 8480-6 BMI: 28.7 Code : 29322-3 Heart Rate 1 : 95 bpm Height: 5'10" SpO2: 97% Weight: 200 lbs 12/07/2015 Blood Pressure 1: 132/78 Code : 8480-6 BMI: 28.6 Code : 50861-1 Heart Rate 1 : 81 bpm Height: 5'10" SpO2: 97% Weight: 199 lbs 06/29/2015 Blood Pressure 1: 118/76 Code : 8480-6 BMI: 28.7 Code : 36975-6 Heart Rate 1 : 98 bpm Height: 5'10" SpO2: 98% Weight: 200 lbs 12/31/2014 Blood Pressure 1: 132/72 Code : 8480-6 BMI: 28.6 Code : 10298-3 Heart Rate 1 : 75 bpm Height: 5'10" SpO2: 95% Weight: 199 lbs Functional Status No Functional Status data History of Present Illness Symptom Name Status Result Effective Date Notes hypertension Onset and Resolution ongoing 08/27/2017 None hypertension Onset of Symptom during adulthood 08/27/2017 None hypertension Blood Pressure Values not checking blood pressure at home 08/27/2017 None hypertension Alleviating Factors medication 08/27/2017 None hypertension Pertinent Findings Denies decreased energy 08/27/2017 None hypertension Pertinent Findings Denies dizziness 08/27/2017 None hypertension Pertinent Findings Denies dyspnea 08/27/2017 None hypertension Pertinent Findings Denies edema 08/27/2017 None hypertension Pertinent Findings palpitations 08/27/2017 None hypertension Pertinent Findings anxiety 08/27/2017 None Hospital Follow Up _ Other: dog bite 08/27/2017 None Hospital Follow Up Quality acute 08/27/2017 None Hospital Follow Up Location left elbow 08/27/2017 None Hospital Follow Up Onset of Symptom 3 days ago 08/27/2017 None Hospital Follow Up Pertinent Findings pain 08/27/2017 None Hospital Follow Up Pertinent Findings Other: swelling, redness 08/27/2017 None Hospital Follow Up Mechanism of injury dog bite 08/27/2017 None Hospital Follow Up Severity moderate 08/27/2017 None hypertension Onset and Resolution ongoing 12/05/2016 None [...] of injury _ 06/29/2015 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, senior living wear and tear shoulder pain Pertinent Findings [...] data Encounters Encounter Performer Location Codes Date ([id number]) Miscellaneous no charge Diagnosis: Essential (primary) hypertension[ICD10: I10] [facility] CPT-4: 71865 09/03/2017 81884 EST. PATIENT, LEVEL IV Diagnosis: Essential (primary) hypertension[ICD10: I10] Diagnosis: Bitten by dog, initial encounter[ICD10: W54.0XXA] [facility] CPT-4: 87856 08/27/2017 ([id number]) 23772 EST. PATIENT, LEVEL III Diagnosis: Essential (primary) hypertension[ICD10: I10] Diagnosis: Idiopathic gout, left ankle and foot[ICD10: M10.072] [facility] CPT-4: 01855 12/05/2016 ([id number]) 23304 EST. PATIENT, LEVEL IV Diagnosis: Essential (primary) hypertension[ICD10: I10] Diagnosis: Mixed hyperlipidemia[ICD10: E78.2] Diagnosis: Personal history of other malignant neoplasm of bronchus and lung[ ICD10: Z85.118] Diagnosis: Diseases of lips[ICD10: K13.0] Vianney Lane MD, [facility] CPT- 4: 40094 06/06/2016 ([id number]) 18005 EST. PATIENT, LEVEL IV Diagnosis: Essential (primary) hypertension[ICD10: I10] Diagnosis: Mixed hyperlipidemia[ICD10: E78.2] Diagnosis: Bicipital tendinitis, right shoulder[ICD10: M75.21] Vianney Lane MD, [facility] CPT-4: 55019 12/07/2015 ([id number]) 99327 EST. PATIENT, LEVEL IV Diagnosis: Essential (primary) hypertension[ICD10: I10] Diagnosis: Pain in right shoulder[ICD10: M25.511] [facility]ianney Lane MD, [facility] CPT-4: 86821 06/29/2015 ([id number]) OFFICE VISIT, NEW - LEVEL 4 Diagnosis: ESSENTIAL HYPERTENSION[ICD9: 401.9] Diagnosis: HYPERLIPIDEMIA[ICD9: 272.4] [facility]ianney Lane MD, [facility] CPT- 4: 29648 12/31/2014 Plan of Care Planned Activity Notes Codes Status Date Appointment: Kati Appiah [facility] [place] ([facility] 09/11/2017 Appointment: Nurse Visit 09/03/2017 Patient Education: Patient Medication Summary Completed 09/03/2017 Visit Plan: Hypertension - The patient has been counseled to cut back on salt in diet for a no added salt diet, low fat diet, start an exercise program with low weight bearing exercises and higher aerobic activity for heart health. The patient is to check blood pressure readings as an outpatient and either fax, call, or email the readings to the office next week for practitioner to review. The pt is to call for acute concerns. Dog bite - Wound Instructions - Pt was instructed to keep the wound clean, wash with antibacterial soap, use triple antibiotic ointment, call if redness, pustular drainage, or any other acute concerns. 08/27/2017 Visit Plan: Hypertension - The patient has been counseled to cut back on salt in diet for a no added salt diet, low fat diet, start an exercise program with low weight bearing exercises and higher aerobic activity for heart health. The patient is to check blood pressure readings as an outpatient and either fax, call, or email the readings to the office next week for practitioner to review. The pt is to call for acute concerns. Dog bite - Wound Instructions - Pt was instructed to keep the wound clean, wash with antibacterial soap, use triple antibiotic ointment, call if redness, pustular drainage, or any other acute concerns. 08/27/2017 Appointment: Kati Appiah WPtel: [address] [place] [address] (15 min) Moderate 08/27/2017 Patient Education: Patient Medication Summary Completed 08/27/2017 Visit Plan: Hypertension - well controlled [...] when available. 12/05/2016 Appointment: Aydee Gallardo WPtel: [address] [place], [place] [phone] (30 min) Complex 12/05/2016 Patient Education: Patient Medication Summary Completed 12/05/2016 Appointment: Aydee Gallardo WPtel: [address] [place], [place] [phone] (30 min) Complex 12/04/2016 Appointment: Lab Draw 10/02/2016 Patient Education: Patient Medication Summary Completed 10/02/2016 Referral: Austin Li [address] Patient informed. Referral info faxed. Completed 06/22/2016 [...] to pt 06/06/2016 Appointment: [facility]ian[phone] (15 min) Moderate 06/06/2016 Patient Education: Patient Medication Summary Completed 06/06/2016 Patient Education: Hypertension Completed 06/06/2016 Care Plan: Referral Order SNOMED-CT : [id number] Pending 06/06/2016 Visit Plan: Hypertension - well [...] not improved. 12/07/2015 Appointment: [facility]ian[facility]el[facility] [phone] [facility] (15 min) Moderate 12/07/2015 Patient Education: Patient [...] to medications. 12/31/2014 Appointment: Vianney Lane WPtel: [address] [place], [place] [phone] [place] ([place] New Patient 12/31/2014 Patient Education: Patient Medication Summary Completed 12/31/2014 Patient Education: Hypertension Completed 12/31/2014 Referral: [id number] Referral Appointment Requested Instructions Comment Monitor your [...] for labs - order given to pt probiotic while on the doxycycline - [employer] [facility], culturelle, or generic . Hypertension - The patient has been counseled to cut back on salt in diet for a no added salt diet, low fat diet, start an exercise program with low weight bearing exercises and higher aerobic activity for heart health. The patient is to check blood pressure readings as an outpatient and either fax , call, or email the readings to the office next week for practitioner to review. The pt is to call for acute concerns. Dog bite - Wound Instructions - Pt was instructed to keep the wound clean, wash with antibacterial soap, use triple antibiotic ointment, call if redness, pustular drainage, or any other acute concerns. probiotic while on the doxycycline - [employer] [facility], culturelle, or generic . Hypertension - The patient has been counseled to cut back on salt in diet for a no added salt diet, low fat diet, start an exercise program with low weight bearing exercises and higher aerobic activity for heart health. The patient is to check blood pressure readings as an outpatient and either fax , call, or email the readings to the office next week for practitioner to review. The pt is to call for acute concerns. Dog bite - Wound Instructions - Pt was instructed to keep the wound clean, wash with antibacterial soap, use triple antibiotic ointment, call if redness, pustular drainage, or any other acute concerns. two old goats - muscle rub from [facility] . Hypertension - well controlled [...]
--- OUTSIDE RECORDS SUMMARY | 2018-04-04 10:13 | XMS REPORT | CCD ---
Author Author Vianney aLne Organization [facility] Address [address] [place] [address] Phone Care Team Providers Care Eligibility Analyst Name Role Phone PP Unavailable CCM Unavailable Summary Purpose Interface Exchange Insurance Providers Payer name Policy type / Coverage type Covered democrat ID Effective Begin Date Effective End Date [employer] Medicare Part B [id number] Unknown Unknown [facility] Medicare Part B [id number] Unknown Unknown Family history Father Diagnosis Age At Onset Cancer Unknown Mother Diagnosis Age At Onset Hypertension Unknown Hyperlipidemia Unknown Social History Social History Element Codes Description Effective Dates Marital status Unknown Yelena 12/31/2014 Number of children Unknown 0 12/31/2014 Employment Unknown Retired 12/31/[address]: 7717283 Quit over 10 years ago 200012/31/[address]: 125301 Currently drinks alcohol 12/31/2014 Frequency of drinks SNOMED CT: 123506384 7 drinks per week 12/31/2014 Allergies, Adverse [...] Instructions doxycycline hyclate 100 mg capsule RxNorm: 4095900 1 Capsule(s) PO BID 09/11/2017 09/17/2017 Active Coreg 3.125 mg tablet RxNorm: 055834 1 Tablet(s) PO BID 201703/31/2018 Active Coreg 3.125 mg tablet RxNorm: 155609 1 Tablet(s) PO BID 201709/02/2017 Inactive doxycycline hyclate 100 mg capsule RxNorm: 4543118 1 Capsule(s) PO BID 08/27/2017 09/02/2017 Inactive lovastatin 40 mg tablet RxNorm: 045313 1 Tablet(s) PO daily 10/201712/05/2017 Active omeprazole 20 mg capsule,delayed release RxNorm: 154275 1 Capsule(s) PO daily 07/23/2017 07/17/2018 Active lisinopril 10 mg-hydrochlorothiazide 12.5 mg tablet RxNorm: 358973 1 Tablet(s) PO daily 07/09/2017 04/04/2018 Active patient needs to call the office to schedule appt fluorouracil 5 % topical cream RxNorm: 177599 1 Gram(s) TOP BID x2 weeks ONLY 03/26/2017 04/08/2017 Inactive fluorouracil 5 % topical cream RxNorm: 532377 1 Gram(s) TOP BID x2 weeks ONLY 03/26/2017 03/25/2017 Inactive Colcrys 0.6 mg tablet RxNorm: 685570 2 Tablet(s) PO UD 2016 No Stop Date Active 2 tabs today then 1 tab daily x 5 days then prn gout lisinopril 10 mg-hydrochlorothiazide 12.5 mg tablet RxNorm: 185519 1 Tablet(s) PO daily 10/12/2016 07/08/2017 Inactive Cipro 500 mg tablet RxNorm: 875568 1 Tablet(s) PO BID 201610/08/2016 Inactive Cipro 500 mg tablet RxNorm: 353322 1 Tablet(s) PO BID 201610/01/2016 Inactive lovastatin 40 mg tablet RxNorm: 885238 Tablet(s) PO 07/27/2016 08/07/2017 Inactive Cipro 500 mg tablet RxNorm: 798531 1 Tablet(s) PO BID 201509/26/2015 Inactive Cipro 500 mg tablet RxNorm: 699904 1 Tablet(s) PO BID 201510/03/2015 Inactive omeprazole 20 mg capsule,delayed release RxNorm: 784559 1 Capsule(s) PO daily 07/06/2015 06/29/2016 Inactive lisinopril 10 mg-hydrochlorothiazide 12.5 mg tablet RxNorm: 616108 1 Tablet(s) PO daily 07/06/2015 10/03/2015 Inactive lovastatin 40 mg tablet RxNorm: 455766 Tablet(s) PO 12/31/2014 07/26/2016 Inactive lisinopril 10 mg-hydrochlorothiazide 12.5 mg tablet RxNorm: 603858 1 Tablet(s) PO daily 12/31/2014 03/30/2015 Inactive Ocuvite oral RxNorm: 258639 oral No Start Date Active aspirin 81 mg tablet,delayed release RxNorm: 604260 1 Tablet(s) PO daily No Start Date Active Prilosec oral RxNorm: 7646 oral No Start Date 12/07/2015 Inactive lovastatin oral RxNorm : 580634 oral No Start Date 12/30/2014 Inactive Medication [...] 31.3 pg 08/27/2017 Cbc With Differential Ord2 [place]% 12.7 % 08/27/2017 Cbc With Differential Ord2 [...] 1.75 K/ul 08/27/2017 Cbc With Differential Ord2 [place] ABS# 0.8 K/ul 08/27/2017 Cbc With Differential Ord2 Eos ABS# 0.1 K/ul 08/27/2017 Cbc With Differential Ord2 Baso ABS# 0.0 K/ul 08/27/2017 Lipid Ord30 CHOL 170 mg/dL 08/27/2017 Lipid Ord30 HDL 52.0 mg/dl 08/27/2017 Lipid Ord30 TRIG 106 mg/dL 08/27/2017 Lipid Ord30 LDL 97 mg/dL 08/27/2017 Lipid Ord30 C/HDL 3.3 Ratio 08/27/2017 Total Psa Ord10 PSA 1.09 ng/mL 08/27/2017 Comp Metabolic Cfj291 NA 136 mEq/L 08/27/2017 Comp Metabolic Ios874 K 4.2 mEq/L 08/27/2017 Comp Metabolic Dxk053 CL 98 mEq/L 08/27/2017 Comp Metabolic Zat882 CO2 26.0 mEq/L 08/27/2017 Comp Metabolic Jta306 ANION GAP 16 08/27/2017 Comp Metabolic Wjx274 GLUCOSE 119 mg/dL 08/27/2017 Comp Metabolic Qyg366 Creat 1.2 mg/dL 08/27/2017 Comp Metabolic Fal788 eGFR 67 ml/min/1.73m2 08/27/2017 Comp Metabolic Fzd837 BUN 14 mg/dL 08/27/2017 Comp Metabolic Odh033 B/C Ratio 12.2 Ratio 08/27/2017 Comp Metabolic Xhd487 CALCIUM 9.5 mg/dL 08/27/2017 Comp Metabolic Ctl369 ALK PHOS 60 U/L 08/27/2017 Comp Metabolic Hod377 AST(SGOT) 40 U/L 08/27/2017 Comp Metabolic Wke909 ALT(SGPT) 40 U/L 08/27/2017 Comp Metabolic Rsw462 BILI T 0.6 mg/dL 08/27/2017 Comp Metabolic Asv920 ALBUMIN 4.4 g/dL 08/27/2017 Comp Metabolic Mcv762 TPRO 6.9 g/dL 08/27/2017 Comp Metabolic Pez232 GLOB 2.5 g/dL 08/27/2017 Comp Metabolic Vsq261 A/G Ratio 1.7 Ratio 08/27/2017 Comp Metabolic Nbu327 Osmo 274 mOsmo 08/27/2017 Comp Metabolic Mwi385 NA 137 mEq/L 01/23/2017 Comp Metabolic Ndp543 K 4.7 mEq/L 01/23/2017 Comp Metabolic Evt872 CL 99 mEq/L 01/23/2017 Comp Metabolic Ckb075 CO2 30.0 mEq/L 01/23/2017 Comp Metabolic Gag310 ANION GAP 13 01/23/2017 Comp Metabolic Gok233 GLUCOSE 92 mg/dL 01/23/2017 Comp Metabolic Xik671 Creat 1.0 mg/dL 01/23/2017 Comp Metabolic Dwn330 eGFR 77 ml/min/1.73m2 01/23/2017 Comp Metabolic Uwh881 BUN 13 mg/dL 01/23/2017 Comp Metabolic Wtw022 B/C Ratio 12.7 Ratio 01/23/2017 Comp Metabolic Vkv230 CALCIUM 9.3 mg/dL 01/23/2017 Comp Metabolic Upu082 ALK PHOS 56 U/L 01/23/2017 Comp Metabolic Vsh458 AST(SGOT) 26 U/L 01/23/2017 Comp Metabolic Lai465 ALT(SGPT) 25 U/L 01/23/2017 Comp Metabolic Olx282 BILI T 0.5 mg/dL 01/23/2017 Comp Metabolic Qsg032 ALBUMIN 4.2 g/dL 01/23/2017 Comp Metabolic Dxm723 TPRO 6.9 g/dL 01/23/2017 Comp Metabolic Nsa756 GLOB 2.7 g/dL 01/23/2017 Comp Metabolic Cvg699 A/G Ratio 1.5 Ratio 01/23/2017 Comp Metabolic Dns912 Osmo 274 mOsmo 01/23/2017 Cbc With Differential [...] 91.3 fl 12/05/2016 Cbc With Differential Ord2 [place]% 13.0 % 12/05/2016 Cbc With Differential Ord2 [...] 1.65 K/ul 12/05/2016 Cbc With Differential Ord2 [place] ABS# 1.1 K/ul 12/05/2016 Cbc With Differential Ord2 Eos ABS# 0.2 K/ul 12/05/2016 Cbc With Differential Ord2 Baso ABS# 0.0 K/ul 12/05/2016 Uric Acid Ord77 Uric A 6.5 mg/dL 12/05/2016 Comp Metabolic Yaj848 NA 136 mEq/L 12/05/2016 Comp Metabolic Ibt132 K 4.4 mEq/L 12/05/2016 Comp Metabolic Khl539 CL 99 mEq/L 12/05/2016 Comp Metabolic Jid264 CO2 28.0 mEq/L 12/05/2016 Comp Metabolic Cic865 ANION GAP 13 12/05/2016 Comp Metabolic Joc731 GLUCOSE 84 mg/dL 12/05/2016 Comp Metabolic Yrf571 Creat 1.0 mg/dL 12/05/2016 Comp Metabolic Alr032 eGFR 84 ml/min/1.73m2 12/05/2016 Comp Metabolic Mzi631 BUN 14 mg/dL 12/05/2016 Comp Metabolic Onb358 B/C Ratio 14.7 Ratio 12/05/2016 Comp Metabolic Evq723 CALCIUM 9.0 mg/dL 12/05/2016 Comp Metabolic Uxh819 ALK PHOS 55 U/L 12/05/2016 Comp Metabolic Ifb218 AST(SGOT) 26 U/L 12/05/2016 Comp Metabolic Uxv798 ALT(SGPT) 25 U/L 12/05/2016 Comp Metabolic Nwi915 BILI T 0.4 mg/dL 12/05/2016 Comp Metabolic Kjz536 ALBUMIN 4.1 g/dL 12/05/2016 Comp Metabolic Ohq850 TPRO 6.8 g/dL 12/05/2016 Comp Metabolic Gkn770 GLOB 2.7 g/dL 12/05/2016 Comp Metabolic Gtp217 A/G Ratio 1.5 Ratio 12/05/2016 Comp Metabolic Lln627 Osmo 272 mOsmo 12/05/2016 Comp Metabolic Qhw690 NA 136 mEq/L 11/13/2016 Comp Metabolic Iob715 K 4.2 mEq/L 11/13/2016 Comp Metabolic Nqb907 CL 98 mEq/L 11/13/2016 Comp Metabolic Xxd868 CO2 29.0 mEq/L 11/13/2016 Comp Metabolic Kbn494 ANION GAP 13 11/13/2016 Comp Metabolic Xyp017 GLUCOSE 94 mg/dL 11/13/2016 Comp Metabolic Iws305 Creat 1.0 mg/dL 11/13/2016 Comp Metabolic Adl512 eGFR 78 ml/min/1.73m2 11/13/2016 Comp Metabolic Tzf449 BUN 12 mg/dL 11/13/2016 Comp Metabolic Kbf052 B/C Ratio 11.9 Ratio 11/13/2016 Comp Metabolic Bck326 CALCIUM 9.4 mg/dL 11/13/2016 Comp Metabolic Txp907 ALK PHOS 56 U/L 11/13/2016 Comp Metabolic Rhd590 AST(SGOT) 25 U/L 11/13/2016 Comp Metabolic Vje415 ALT(SGPT) 25 U/L 11/13/2016 Comp Metabolic Cvo937 BILI T 0.6 mg/dL 11/13/2016 Comp Metabolic Brw733 ALBUMIN 4.2 g/dL 11/13/2016 Comp Metabolic Zcd886 TPRO 6.7 g/dL 11/13/2016 Comp Metabolic Muh702 GLOB 2.5 g/dL 11/13/2016 Comp Metabolic Dxz278 A/G Ratio 1.6 Ratio 11/13/2016 Comp Metabolic Tnl993 Osmo 271 mOsmo 11/13/2016 Urine Culture Ucult [...] 22.0 % 06/12/2016 Cbc With Differential Ord2 [place]% 15.1 % 06/12/2016 Cbc With Differential Ord2 [...] 1.66 K/ul 06/12/2016 Cbc With Differential Ord2 [place] ABS# 1.1 K/ul 06/12/2016 Cbc With Differential Ord2 Eos ABS# 0.2 K/ul 06/12/2016 Cbc With Differential Ord2 Baso ABS# 0.1 K/ul 06/12/2016 Comp Metabolic Beu561 NA 132 mEq/L 06/12/2016 Comp Metabolic Qtq568 K 4.2 mEq/L 06/12/2016 Comp Metabolic Utx567 CL 97 mEq/L 06/12/2016 Comp Metabolic Odu630 CO2 28.0 mEq/L 06/12/2016 Comp Metabolic Qpp183 ANION GAP 11 06/12/2016 Comp Metabolic Nkz846 GLUCOSE 98 mg/dL 06/12/2016 Comp Metabolic Dyf365 Creat 1.0 mg/dL 06/12/2016 Comp Metabolic Qtd572 eGFR 78 ml/min/1.73m2 06/12/2016 Comp Metabolic Ebg955 BUN 12 mg/dL 06/12/2016 Comp Metabolic Kmm106 B/C Ratio 11.9 Ratio 06/12/2016 Comp Metabolic Laf470 CALCIUM 9.2 mg/dL 06/12/2016 Comp Metabolic Wqk753 ALK PHOS 58 U/L 06/12/2016 Comp Metabolic Wyu434 AST(SGOT) 23 U/L 06/12/2016 Comp Metabolic Qio520 ALT(SGPT) 22 U/L 06/12/2016 Comp Metabolic Nyr030 BILI T 0.6 mg/dL 06/12/2016 Comp Metabolic Rzl072 ALBUMIN 4.2 g/dL 06/12/2016 Comp Metabolic Jor244 TPRO 6.8 g/dL 06/12/2016 Comp Metabolic Xbl158 GLOB 2.6 g/dL 06/12/2016 Comp Metabolic Coc793 A/G Ratio 1.6 Ratio 06/12/2016 Comp Metabolic Ygk688 Osmo 264 mOsmo 06/12/2016 Tsh Ord6 hTSH II 2.41 uIU/mL 12/21/2015 Comp Metabolic Fsv324 NA 135 mEq/L 12/21/2015 Comp Metabolic Ybk327 K 4.2 mEq/L 12/21/2015 Comp Metabolic Enh995 CL 98 mEq/L 12/21/2015 Comp Metabolic Fuj123 CO2 29.0 mEq/L 12/21/2015 Comp Metabolic Elc646 ANION GAP 12 12/21/2015 Comp Metabolic Yxk865 GLUCOSE 99 mg/dL 12/21/2015 Comp Metabolic Stf591 Creat 1.1 mg/dL 12/21/2015 Comp Metabolic Tcu381 eGFR 70 ml/min/1.73m2 12/21/2015 Comp Metabolic Cgl678 BUN 17 mg/dL 12/21/2015 Comp Metabolic Ohe156 B/C Ratio 15.2 Ratio 12/21/2015 Comp Metabolic Iji695 CALCIUM 9.1 mg/dL 12/21/2015 Comp Metabolic Vgm219 ALK PHOS 60 U/L 12/21/2015 Comp Metabolic Rgx214 AST(SGOT) 23 U/L 12/21/2015 Comp Metabolic Eih221 ALT(SGPT) 22 U/L 12/21/2015 Comp Metabolic Zag889 BILI T 0.6 mg/dL 12/21/2015 Comp Metabolic Cot101 ALBUMIN 4.3 g/dL 12/21/2015 Comp Metabolic Nxo538 TPRO 7.0 g/dL 12/21/2015 Comp Metabolic Pjx326 GLOB 2.8 g/dL 12/21/2015 Comp Metabolic Ckd013 A/G Ratio 1.5 Ratio 12/21/2015 Comp Metabolic Ovd380 Osmo 272 mOsmo 12/21/2015 Cbc With Differential [...] 30.5 pg 12/21/2015 Cbc With Differential Ord2 [place]% 15.3 % 12/21/2015 Cbc With Differential Ord2 [...] 1.58 K/ul 12/21/2015 Cbc With Differential Ord2 [place] ABS# 1.0 K/ul 12/21/2015 Cbc With Differential [...] Codes Date URINALYSIS NONAUTO W/O SCOPE CPT-4: 42873 10/02/2016 URINALYSIS NONAUTO W/O SCOPE CPT-4: 22611 09/27/2015 Vital Signs Date Vital 08/27/2017 Blood Pressure 1: 126/70 Code : 8480-6 BMI: 29.8 Code : 84293-9 Heart Rate 1 : 107 bpm Height: 5'10 " SpO2: 96% Weight: 208 lbs 12/05/2016 Blood Pressure 1: 140/78 Code : 8480-6 BMI: 28.6 Code : 98264-3 Heart Rate 1 : 98 bpm Height: 5'10" SpO2: 96% Weight: 199 lbs 06/06/2016 Blood Pressure 1: 142/80 Code : 8480-6 BMI: 28.7 Code : 61363-4 Heart Rate 1 : 95 bpm Height: 5'10" SpO2: 97% Weight: 200 lbs 12/07/2015 Blood Pressure 1: 132/78 Code : 8480-6 BMI: 28.6 Code : 39960-7 Heart Rate 1 : 81 bpm Height: 5'10" SpO2: 97% Weight: 199 lbs 06/29/2015 Blood Pressure 1: 118/76 Code : 8480-6 BMI: 28.7 Code : 09610-8 Heart Rate 1 : 98 bpm Height: 5'10" SpO2: 98% Weight: 200 lbs 12/31/2014 Blood Pressure 1: 132/72 Code : 8480-6 BMI: 28.6 Code : 11891-7 Heart Rate 1 : 75 bpm Height: [...] of injury _ 06/29/2015 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, long-term wear and tear shoulder pain Pertinent Findings [...] data Encounters Encounter Performer Location Codes Date ([id number]) Miscellaneous no charge Diagnosis: Essential (primary) hypertension[ICD10: I10] [facility] CPT-4: 54539 09/03/2017 19230 EST. PATIENT, LEVEL IV Diagnosis: Essential (primary) hypertension[ICD10: I10] Diagnosis: Bitten by dog, initial encounter[ICD10: W54.0XXA] [facility] CPT-4: 58200 08/27/2017 ([id number]) 86218 EST. PATIENT, LEVEL III Diagnosis: Essential (primary) hypertension[ICD10: I10] Diagnosis: Idiopathic gout, left ankle and foot[ICD10: M10.072] [facility] CPT-4: 65763 12/05/2016 ([id number]) 23572 EST. PATIENT, LEVEL IV Diagnosis: Essential (primary) hypertension[ICD10: I10] Diagnosis: Mixed hyperlipidemia[ICD10: E78.2] Diagnosis: Personal history of other malignant neoplasm of bronchus and lung[ ICD10: Z85.118] Diagnosis: Diseases of lips[ICD10: K13.0] [facility] CPT- 4: 14754 06/06/2016 ([id number]) 83213 EST. PATIENT, LEVEL IV Diagnosis: Essential (primary) hypertension[ICD10: I10] Diagnosis: Mixed hyperlipidemia[ICD10: E78.2] Diagnosis: Bicipital tendinitis, right shoulder[ICD10: M75.21] [facility] CPT-4: 93327 12/07/2015 ([id number]) 86060 EST. PATIENT, LEVEL IV Diagnosis: Essential (primary) hypertension[ICD10: I10] Diagnosis: Pain in right shoulder[ICD10: M25.511] [facility] CPT-4: 79132 06/29/2015 ([id number]) OFFICE VISIT, NEW - LEVEL 4 Diagnosis: ESSENTIAL HYPERTENSION[ICD9: 401.9] Diagnosis: HYPERLIPIDEMIA[ICD9: 272.4] [facility], [facility] CPT- 4: 22210 12/31/2014 Plan of Care Planned Activity Notes Codes Status Date Appointment: [facility] App[facility] ([facility] 09/11/2017 Appointment: Nurse Visit 09/03/2017 Patient Education: [...] acute concerns. 08/27/2017 Appointment: Kati Appiah WPtel: [facility] (15 min) Moderate 08/27/2017 Patient Education: Patient [...] when available. 12/05/2016 Appointment: Aydee Gallardo WPtel: [facility] (30 min) Complex 12/05/2016 Patient Education: Patient Medication Summary Completed 12/05/2016 Appointment: Aydee Gallardo WPtel: [facility] (30 min) Complex 12/04/2016 Appointment: Lab Draw 10/02/2016 Patient Education: Patient Medication Summary Completed 10/02/2016 Referral: Austin Li [address] Patient informed. Referral info faxed. Completed [...] to pt 06/06/2016 Appointment: [phone] (15 min) Moderate 06/06/2016 Patient Education: Patient Medication Summary Completed 06/06/2016 Patient Education: Hypertension Completed 06/06/2016 Care Plan: Referral Order SNOMED-CT : [id number] Pending 06/06/2016 Visit Plan: Hypertension - well [...] not improved. 12/07/2015 Appointment: [facility]ian[phone] (15 min) Moderate 12/07/2015 Patient Education: Patient [...] to medications. 12/31/2014 Appointment: Vianney Lane WPtel: [facility] [place] New Patient 12/31/2014 Patient Education: Patient Medication Summary Completed 12/31/2014 Patient Education: Hypertension Completed 12/31/2014 [facility] Referral Appointment Requested Instructions Comment Monitor your [...] pt probiotic while on the doxycycline - Aktana, culturelle, or generic . Hypertension - The [...] two old goats - muscle rub from [employer] and home . Hypertension - well controlled [...]
[2018-04-04] MEDS ORDERED: LACTATED RINGERS 1,000 ML IV PRN (10:14)
--- OUTSIDE RECORDS SUMMARY | 2018-04-04 10:14 | XMS REPORT | Continuity of Care Document ---
Author Author [facility] Organization [facility] Address Unknown Phone Unavailable Allergies Active Description Code Type Severity Reaction Onset Reported/Identified Relationship to Patient Clinical Status Yes No Known Drug Allergies [id number] Drug Allergy Unknown N/A 02/12/2014 Medications There [...] AUDELIA Garza Ot 562.10 09/01/2015 KARTHIK IGLESIAS, AUDELIA Garza Ot 600.00 09/01/2015 KARTHIK IGLESIAS, AUDELIA Garza Ot V76.51 09/01/2015 KARTHIK IGLESIAS, AUDELIA Garza Ot V72.84 09/01/2015 SKIP IGLESIAS, ESTHER A Ot 272.4 09/01/2015 SKIP IGLESIAS, ESTHER A Ot 401.9 09/01/2015 SKIP IGLESIAS, ESTHER A Ot V10.11 09/01/2015 HAKAN MURDOCK DATA ENTRY SUPERVISOR Ot Z08 09/01/2015 HAKAN MURDOCK DATA ENTRY SUPERVISOR Ot Z85.118 09/03/2015 HAKAN MURDOCK DATA ENTRY SUPERVISOR Ot Z08 09/03/2015 HAKAN MURDOCK DATA ENTRY SUPERVISOR Ot Z85.118 09/07/2015 HAKAN MURDOCK DATA ENTRY SUPERVISOR Ot F17.210 09/07/2015 HAKAN MURDOCK DATA ENTRY SUPERVISOR Ot Z85.118 09/07/2015 AHKAN MURDOCK DATA ENTRY SUPERVISOR Ot F17.210 09/07/2015 HAKAN MURDOCK DATA ENTRY SUPERVISOR Ot Z85.118 09/13/2015 HAWK IGLESIAS, TAKAAKI Ot [...] ESTHER A Ot V10.11 09/13/2015 HAKAN MURDOCK DATA ENTRY SUPERVISOR Ot Z08 09/13/2015 HAKAN MURDOCK DATA ENTRY SUPERVISOR Ot Z85.118 09/13/2015 HAKAN MURDOCK DATA ENTRY SUPERVISOR Ot F17.210 09/13/2015 HAKAN MURDOCK DATA ENTRY SUPERVISOR Ot Z85.118 09/13/2015 HAKAN MURDOCK DATA ENTRY SUPERVISOR Ot F17.210 09/13/2015 HAKAN MURDOCK DATA ENTRY SUPERVISOR Ot Z85.118 10/06/2015 SKIP IGLESIAS, ESTHER Leung [...] Ot V10.11 HX-BRONCHOGENIC MALIGNAN 06/12/2016 HAKAN MURDOCK DATA ENTRY SUPERVISOR Ot Z08 ENCNTR FOR FOLLOW-UP EXAM AFTER TRTMT FO 06/12/2016 HAKAN MURDOCK DATA ENTRY SUPERVISOR Ot Z85.118 PERSONAL HISTORY OF MALIGNANT NEOPLASM O 06/12/2016 HAKAN MURDOCK DATA ENTRY SUPERVISOR Ot F17.210 NICOTINE DEPENDENCE, CIGARETTES, UNCOMPL 06/12/2016 HAKAN MURDOCK DATA ENTRY SUPERVISOR Ot Z85.118 PERSONAL HISTORY OF MALIGNANT NEOPLASM [...] V76.51 SCREEN MAL NEOP-COLON 10/02/2016 KARTHIK IGLESIAS, AUEDLIA Garza Ot V72.84 EXAM PRE-OPERATIVE NOS 10/02/2016 [...] C34.90 MALIGNANT [facility] 10/02/2016 HAKAN MURDOCKP Ot R91.1 SOLITARY PULMONARY NODULE 10/02/2016 LETY CHIU APRN Ot I10 ESSENTIAL (PRIMARY) HYPERTENSION 10/02/2016 LETY CHIU REFINERY OPERATOR ASSISTANT Ot K57.30 DVRTCLOS OF LG INT W/O PERFORATION OR AB 10/02/2016 LETY CIHU REFINERY OPERATOR ASSISTANT Ot N28.9 DISORDER OF KIDNEY AND URETER, UNSPECIFI 10/02/2016 LETY CHIU REFINERY OPERATOR ASSISTANT Ot N30.01 ACUTE CYSTITIS WITH HEMATURIA 10/02/2016 LETY CHIU REFINERY OPERATOR ASSISTANT Ot R31.9 HEMATURIA, UNSPECIFIED 10/02/2016 LETY CHIU REFINERY OPERATOR ASSISTANT Ot Z79.899 OTHER ZOO VETERINARIAN (CURRENT) DRUG THERAPY 10/02/2016 LETY CHIU APRN [...] MD Ot V72.84 EXAM PRE-OPERATIVE NOS 05/31/2017 SKIP IGLESIAS, ESTHER Leung Ot 272.4 HYPERLIPIDEMIA NEC/NOS 05/31/2017 ESTHER VALDIVIA MD Ot 401.9 HYPERTENSION NOS 05/31/2017 ESTHER VALDIVIA MD Ot V10.11 HX-BRONCHOGENIC MALIGNAN 05/31/2017 HAKAN MURDOCKP Ot Z08 ENCNTR FOR FOLLOW-UP EXAM AFTER TRTMT FO 05/31/2017 HAKAN MURDOCK DATA ENTRY SUPERVISOR Ot Z85.118 PERSONAL HISTORY OF MALIGNANT NEOPLASM O 05/31/2017 HAKAN MURDOCKP Ot F17.210 NICOTINE DEPENDENCE, CIGARETTES, UNCOMPL 05/31/2017 HAKAN MURDOCKP Ot Z85.118 PERSONAL HISTORY [...] N28.89 OTHER SPECIFIED DISORDERS OF KIDNEY AND 08/18/2017 RODOLFO LUGO Ot S51.052A OPEN BITE, LEFT ELBOW, INITIAL ENCOUNTER 08/18/2017 RODOLFO LUGO Ot S59.902A UNSPECIFIED INJURY OF LEFT ELBOW, INITIA 08/18/2017 RODOLFO LUGO Ot W54.0XXA BITTEN BY DOG, INITIAL ENCOUNTER 08/18/2017 RODOLFO LUGO Ot Z23 ENCOUNTER FOR IMMUNIZATION 01/12/2018 ELIZABETH EPPERSON MD Ot N39.0 URINARY TRACT INFECTION, SITE NOT SPECIF 01/12/2018 ELIZABETH EPPERSON MD Ot R30.0 DYSURIA 01/12/2018 ELIZABETH EPPERSON MD Ot Z87.891 PERSONAL HISTORY OF NICOTINE DEPENDENCE Procedures There is no data. Results Test [...] plasma albumin measurement (mass/volume) 4.4 g/dL 3.2-4.5 [id number] - 06/04/17 08:04 Serum or plasma urea nitrogen measurement (mass/volume) 14 mg/dL 7-18 Serum or plasma creatinine measurement (mass/volume) 1.13 mg/dL 0.60-1.30 Serum or plasma urea nitrogen/creatinine mass ratio 12 NRG Serum or plasma creatinine measurement with calculation of estimated glomerular filtration rate > NRG Complete urinalysis with reflex to culture - 01/12/18 12:10 Urine color determination OTHER NRG Urine clarity determination SLIGHTLY CLOUDY NRG Urine pH measurement by test strip 6 5-9 Specific gravity of urine by test [...] detection in urine sediment by light microscopy MODERATE NRG Squamous epithelial cells detection in urine sediment by light microscopy NONE NRG Crystals detection in urine sediment by light microscopy NONE NRG Casts detection in urine sediment by light microscopy NONE NRG Mucus detection in urine sediment by light microscopy NEGATIVE NRG Complete urinalysis with reflex to culture YES NRG Bacterial urine culture - 01/12/18 12:10 Bacterial urine culture NG NRG Encounters ACCT No. Visit Date/Time Discharge Status Pt. Type Provider Facility Loc./Unit Complaint [id number] 01/12/2018 11:40:00 01/12/2018 13:32:00 DIS Emergency ELIZABETH EPPERSON MD [facility] ER PAIN WITH URINATION [id number] 08/18/2017 10:48:00 08/18/2017 12:32:00 DIS Emergency RODOLFO LUGO [facility] ER L ELBOW INJ [id number] 06/04/2017 07:57:00 06/04/2017 23:59:59 CLS Outpatient RIKI ARORA MD [facility] RAD R RENAL MASS [id number] 01/30/2017 09:06:00 01/30/2017 23:59:59 CLS Outpatient TORIE MCCRARY REFINERY OPERATOR ASSISTANT [facility] RAD HX OF ABNORMAL CT HEMORRHAGIC CYST [id number] 10/24/2016 07:54:00 10/24/2016 23:59:59 CLS Outpatient HAKAN MURDOCK [facility] RAD INDETERMINATE NODULE IN THE RT KIDNEY [id number] 10/05/2016 13:00:00 10/05/2016 23:59:59 CLS Outpatient ESTHER VALDIVIA MD [facility] RAD RENAL NODULE [id number] 10/02/2016 12:01:00 10/02/2016 14:22:00 DIS Emergency LETY CHIU REFINERY OPERATOR ASSISTANT [facility] ER BLOOD IN URINE [id number] 06/16/2016 09:13:00 06/16/2016 23:59:59 CLS Outpatient HAKAN MURDOCK [facility] RAD RT LUNG NODULE [id number] 06/12/2016 08:20:00 06/12/2016 23:59:59 CLS Outpatient ESTHER VALDIVIA MD [facility] RAD SMALL CELL LUNG CANCER [id number] 09/13/2015 12:54:00 09/13/2015 23:59:59 CLS Outpatient ESTHER VALDIVIA MD [facility] RAD ABNORMALITY OF LT RENAL SEGMENT [id number] 09/01/2015 08:26:00 09/01/2015 23:59:59 CLS Outpatient HAKAN MURDOCK [facility] RAD TOBACCOISM, HX OF LUNG CANCER [id number] 08/16/2015 09:29:00 08/16/2015 23:59:59 CLS Outpatient HAKAN MURDOCK [facility] RAD HX OF LUNG CANCER [id number] 01/11/2015 07:50:00 01/11/2015 23:59:59 CLS Outpatient ESTHER VALDIVIA MD [facility] RAD HX OF SMALL CELL CA [id number] 08/11/2014 08:14:00 08/11/2014 23:59:59 CLS Outpatient AUDELIA ANGELES MD [facility] SCREENING [id number] 08/07/2014 06:04:00 08/07/2014 23:59:59 CLS Outpatient AUDELIA ANGELES MD [facility] PREOP SCREENING [id number] 02/19/2014 06:57:00 02/19/2014 14:00:00 DIS Outpatient TAMMY ARECHIGA MD [facility] LEFT INGUINAL HERNIA [id number] 02/12/2014 07:35:00 02/12/2014 23:59:59 CLS Outpatient TAMMY ARECHIGA MD [facility] PREOP LEFT INGUINAL HERNIA [id number] 04/04/2018 12:00:00 PEN Noe CONNER MD, LEDY Moran [facility] SKIN LESION
[2018-04-04] MEDS ORDERED: ceFAZolin 2 GM IV Premixed 50 ML IV ONE (10:15)
[2018-04-04 10:25] VITALS: BP 116/75
[2018-04-04] MEDS ORDERED: CATHETER FLUSH 10 ML SYR IV PRN (10:45)
[2018-04-04] MEDS ORDERED: BUP/EPI 0.5% 1:200,000 (SENSORCAINE) 30 ML VIAL ONE (11:57)
--- NOTE | 2018-04-04 11:59 | Progress Note-Pre Operative ---
Pre-Operative Progress Note H&P Reviewed The H&P was reviewed, patient examined and no changes noted. Date Seen by Provider: Apr 04, 2018 Time Seen by Provider: 14:20 Date H&P Reviewed: Apr 04, 2018 Time H&P Reviewed: 11:58 Pre-Operative Diagnosis: Skin lesion right protestant LEDY CONNER MD Apr 04, 2018 11:59 am
[2018-04-04] MEDS ORDERED: KETAMINE HCL 100 MG/ML 5 ML VIAL ONE (12:09)
[2018-04-04] MEDS ORDERED: proPOfol 200 MG/20 ML (DIPRIVAN) VIAL IV ONE (12:09)
[2018-04-04] MEDS ORDERED: MIDAZOLAM 2 MG/2 ML (VERSED) VIAL ONE ×2 (12:09)
--- NOTE | 2018-04-04 12:54 | Operative Report ---
Operative Report Date of Procedure/Surgery Apr 04, 2018 Surgeon (s) LEDY CONNER MD Binder Fixer (s): N/A Post-Operative Diagnosis Basal cell carcinoma with negative margins Procedure Performed Excision with frozen section and primary closure Description of Procedure Anesthesia Type: MAC Estimated blood loss (mL): Minimal Specimen(s) collected/removed Skin lesion Description of the Procedure Indication for the procedure: This gentleman presented with an ulcerated lesion over the right episcopalian, having the appearance of a basal cell cancer. He was offered excision to establish a definitive diagnosis. Informed consent was obtained after reviewing the procedure details and complications of postoperative hematoma and wound infection. Description of procedure : He was placed supine on the operative table and our anesthesiologist administered sedation, monitoring his vital signs. Antibiotics were administered intravenously as prophylaxis against wound infection. Right episcopalian was prepared and draped in the usual sterile manner. Local anesthesia was achieved using 0.5 percent Marcaine with epinephrine. An elliptical incision about 2 cm in length by 1/2 cm in width was made and the lesion excised down to the periosteum of the bone. It was oriented with silk sutures and sent for histologic examination. It was confirmed to be a basal cell carcinoma with negative margins hemostasis was achieved using ligaclips and minimal use of cautery. The incision was then closed using interrupted 4-0 nylon sutures. A nonadherent dressing was then applied. He tolerated the procedure well and was taken to the nursing area in a stable condition. Findings of the Procedure See operative report Allergies and Home Medications Allergies Coded Allergies: No Known Drug Allergies (Unverified , 04/01/18) Home Medications Aspirin 81 Mg Tablet.dr, 81 MG PO DAILY, (Reported) C,E,Zinc,Copper 11/Bjnkv5j/Lut 1 Each Capsule, 1 EACH PO DAILY, (Reported) Carvedilol 3.125 Mg Tablet, 3.125 MG PO BID, (Reported) Lisinopril/Hydrochlorothiazide 1 Each Tablet, 1 EACH PO DAILY, (Reported) Lovastatin 40 Mg Tablet, 40 MG PO DAILY, (Reported) Omeprazole 20 Mg Capsule.dr, 20 MG PO DAILY, (Reported) Patient Home Medication List Home Medication List Reviewed: Yes LEDY CONNER MD Apr 04, 2018 12:54 pm
[2018-04-04] MEDS ORDERED: TRAM50TA2 PO (12:57)
--- NOTE | 2018-04-04 12:57 | Discharge Inst-Simple/Standard ---
Discharge Inst-Standard Discharge Medications New, Converted or Re-Newed RX: RX on Chart Patient Instructions/Follow Up Plan of Care/Instructions/FU: Dressing may be replaced with a Band-Aid in 48 hours. Follow-up with my nurse on 16 April for suture removal Activity as Tolerated: Yes Discharge Diet: No Restrictions LEDY CONNER MD Apr 04, 2018 12:57 pm
[2018-04-04] MEDS ORDERED: ONDANSETRON 4 MG/2 ML (SDV) Z0FRAN IVP PRN (13:15)
[2018-04-04] MEDS ORDERED: MEPERIDINE (DEMEROL) INJ 50 MG/ML IVP ONE (13:15)
[2018-04-04] MEDS ORDERED: morphine INJ 10 MG/ML 1ML (SYR OR VIAL) IVP ONE (13:15)
[2018-04-04 13:29] VITALS: BP 128/72
[2018-04-04 13:55] VITALS: BP 128/72
[2018-04-04 14:02] VITALS: BP 145/76
== END 2018-04-04 14:00 | disposition home or self-care (01) ==
LOC: SDC 10:04
PROVIDERS: ATTEND Surgery
DX: C44.310 Basal cell carcinoma of skin of unspecified parts of face (principal); I10 Essential (primary) hypertension; Z87.891 Personal history of nicotine dependence; Z79.82 Long term (current) use of aspirin
CPT/HCPCS: 87081; 88305; 88331

== ENCOUNTER → 2019-01-29 | Outpatient (CLI) | payer MEDICARE, OTHER ==
[~2019-01-29] MED LIST changes: +TRAM50TA2 PO
--- NOTE | 2019-01-29 11:52 | Diagnostic Imaging Report ---
INDICATION: Lung nodule, followup. TIME OF EXAM: 10:54 a.m. COMPARISON: Correlation is made with prior study from 06/12/2016. FINDINGS: Heart size is stable. Paramediastinal density on the left adjacent to aortic knob is similar to prior study. Remainder of the lungs are clear. The pulmonary vascularity is normal. No infiltrates are seen. There is no effusion or pneumothorax. IMPRESSION: Stable chest. No acute abnormalities detected. Dictated by: Dictated on workstation # [id number]
== END ==
LOC: RAD 10:37
PROVIDERS: ATTEND Nurse Practitioner Family
DX: R91.8 Other nonspecific abnormal finding of lung field (principal)
CPT/HCPCS: 71046

== ENCOUNTER → 2019-10-10 | Outpatient (CLI) | payer MEDICARE, OTHER ==
[~2019-10-10] MED LIST changes: +CATHETER FLUSH 10 ML SYR IV PRN; +HOLD METFORMIN - RECEIVED CONTRAST 20 ML VIAL IV SCH; +IOHEXOL 350 MG/ML 100 ML (OMNIPAQUE 350) VIAL IV ONE; +LISI1TAB29 PO; +NS 100 ML (IVPB) BAG IV ONE; -OMEP20CA12 PO; +OMEP20CA18 PO; -TRAM50TA2 PO; +TRM50T PO
[2019-10-10 08:55] LABS: BUN/CREATININE RATIO 13; CREATININE SERUM 1.17 MG/DL (0.60-1.30); GFR ESTIMATED > 60
--- NOTE | 2019-10-10 10:03 | Diagnostic Imaging Report ---
EXAMINATION: CT chest with contrast, CT abdomen with and without contrast. TECHNIQUE: Precontrast acquisitions were acquired through the abdomen. Multiple contiguous axial images were obtained through the chest and abdomen after administration of intravenous contrast. All CT scans use one or more of the following dose optimizing techniques: automated exposure control, MA and/or KvP adjustment based on a patient size and exam type, or iterative reconstruction. INDICATION: SMALL CELL CA,RENAL MASS COMPARISON: 01/12/2018, 06/16/2016 FINDINGS: There is no edema or pneumonia. No pleural effusion. No pneumothorax. No suspicious nodules. 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 Heart size is normal. There are mild coronary artery calcifications. No pericardial effusion. Aorta is normal in caliber. There is no axillary or supraclavicular lymphadenopathy. A 12 mm subcarinal lymph node is unchanged from 2016. A 9 mm hyperenhancing focus in hepatic segment 7 was present on MRI dated 10/24/2016 and is likely a hemangioma. No other liver lesions are seen. There is no biliary ductal dilation. Gallbladder is normal. Pancreas is normal. Spleen is normal. Adrenal glands are normal. There is a 17 mm intermediate attenuation lesion in the lower pole of the right kidney without contrast enhancement suggestive of a proteinaceous cyst, it is unchanged from 2017. There is no hydronephrosis. Visualized bowel is normal in caliber without obstruction or inflammation. No free fluid or air. No abdominal lymphadenopathy. Aorta is normal in caliber without aneurysm. There are no suspicious osseus lesions. IMPRESSION: 1. Post treatment changes in the lungs. 2. Stable intermediate attenuation lesion in the right kidney without contrast enhancement likely representing a proteinaceous cyst. Dictated by: Dictated on workstation # [id number]
== END ==
LOC: RAD 08:24
PROVIDERS: ATTEND Family Medicine
DX: C80.1 Malignant (primary) neoplasm, unspecified (principal); N28.89 Other specified disorders of kidney and ureter
CPT/HCPCS: 36415; 71260; 74170; 82565; 84520

== ENCOUNTER 2019-12-15 08:30 | Outpatient (CLI) | payer MEDICARE, OTHER ==
[~2019-12-15] VITALS: Ht 175.3 cm; Wt 93.2 kg
[~2019-12-15 08:30] MED LIST changes: -CATHETER FLUSH 10 ML SYR IV PRN; -HOLD METFORMIN - RECEIVED CONTRAST 20 ML VIAL IV SCH; -IOHEXOL 350 MG/ML 100 ML (OMNIPAQUE 350) VIAL IV ONE; -NS 100 ML (IVPB) BAG IV ONE
== END 2019-12-15 16:13 ==
LOC: PREOP 08:30
PROVIDERS: ATTEND Internal Medicine
DX: Z01.818 Encounter for other preprocedural examination (principal); Z11.59 Encounter for screening for other viral diseases
CPT/HCPCS: 87635

== ENCOUNTER 2019-12-19 08:00 | Day surgery (SDC) | payer MEDICARE, OTHER ==
--- NOTE | 2019-12-09 07:45 | HISTORY AND PHYSICAL ---
DATE OF SERVICE: COLONOSCOPY HISTORY AND PHYSICAL HISTORY OF PRESENT ILLNESS: The patient is a 69-year-old white male referred by Dr. Lane for surveillance colonoscopy. He has a past history of colon polyps. I last performed colonoscopy on him in August 2014, at which time he had one diminutive tubular adenoma removed. 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 He is now over 15 years out from his initial diagnosis. He reports no bowel habit change. He has had no abdominal pain. He does have some occasional loose stools, they think that are dietary related with no melena or bright red blood per rectum. He denies any change in weight. Also significant for hypertension and hyperlipidemia with no known history for coronary disease. MEDICATIONS ON ADMISSION: Include lisinopril HCT 10/12.5, carvedilol 3.25 mg b.i.d., 81 mg aspirin daily, probiotic daily, lovastatin 40 mg daily, omeprazole 20 mg daily and Ocuvite 1 daily. PAST SURGICAL HISTORY: Significant for left inguinal hernia repair in 2014. 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 He has occasional social alcohol intake with a previous 30+ pack year smoking history, but quit in 1999. REVIEW OF SYSTEMS: CONSTITUTIONAL: Denies night sweats, chills, fever or change in weight. GASTROINTESTINAL: As noted in the HPI. PULMONARY: Denies problems with cough, wheezing, shortness of breath. CARDIOVASCULAR: Denies chest pain, orthopnea, PND or dyspnea on exertion. PHYSICAL EXAMINATION: GENERAL: Reveals a pleasant white male in no acute distress. VITAL SIGNS: Weight 205 pounds, blood pressure 120/70, heart rate 70 and regular. HEENT: Unremarkable. Mallampati 2 oropharyngeal configuration. CHEST: Clear to auscultation. CARDIOVASCULAR: Reveals a regular rate and rhythm without murmur, S3 or S4. ABDOMEN: Soft, supple without mass, organomegaly or tenderness. EXTREMITIES: Reveal no cyanosis, clubbing or edema. ASSESSMENT AND PLAN: The patient will be set up for surveillance colonoscopy due to past history of colon polyps, likely sometime in December. Prep instructions and Suprep kit were given and questions were answered. He is advised to discontinue his baby aspirin now continuing his other medications unchanged. I thank you for the referral of this pleasant gentleman. Job ID: [id number] DocumentID: [id number] Dictated Date: 12/01/2019 11:57:02 Laminator Date: 12/01/2019 12:16:03 Dictated By: AUDELIA ANGELES MD
[2019-12-19] VITALS (9 sets, daily range): BP systolic 132–173; BP diastolic 62–87
[~2019-12-19] VITALS: Ht 175.3 cm; Wt 93.2 kg
[2019-12-19] MEDS ORDERED: D5 LR IV SOLUTION 1,000 ML IV ONE (08:07)
[2019-12-19] MEDS ORDERED: LIDOCAINE JELLY 2% 6 ML SYRINGE MM PRN (08:15)
[2019-12-19] MEDS ORDERED: MIDAZOLAM 5 MG/5 ML (VERSED) VIAL IV PRN (08:15)
[2019-12-19] MEDS ORDERED: fentaNYL INJECTION 100 MCG/2 ML AMP IVP ONE (08:15)
[2019-12-19] MEDS ORDERED: D5 LR IV SOLUTION 1,000 ML IV SCH (08:30)
--- OUTSIDE RECORDS SUMMARY | 2019-12-19 09:03 | XMS REPORT | CCD ---
Author Author Anic[address] Organization Vianney Lane MD, [facility] Address [address] [place] [address] Phone Care Team Providers Care Postal Superintendent Name Role Phone PP Unavailable CCM Unavailable Summary Purpose Interface Exchange Insurance Providers Payer name Policy type / Coverage type Covered democrat ID Effective Begin Date Effective End Date [employer] Medicare Part B [id number] Unknown [facility] [employer] [facility] Medicare Part B [id number] Unknown Family history Father Diagnosis Age At Onset Cancer Unknown Mother Diagnosis Age At Onset Hypertension Unknown Hyperlipidemia Unknown Social History Social History Element Codes Description Effective Dates Marital status Unknown M arried Yelena 12/31/2014 Number of children Unknown 0 12/31/2014 Employment Unknown Retir ed 12/31/[address]: 9419661 Quit over 10 years ago 200012/31/[address]: 813751 Currently drinks alcohol 12/31/2014 Frequency of drinks SNOMED CT: 217788508 7 drinks per week 12/31/2014 Allergies, Adverse Reactions, Alerts Substance Reaction Codes Entered Date Inactivated Date Status * NO KNOWN DRUG VIGNESH RGIES Unknown 12/31/2014 No Inactive Date Active Past Medical History Illness Codes Condition Status Onset Date Resolved Date Actinic keratosis ICD-9: 702.0 ICD-10: L57.0 Active 03/11/2018 Unknown Bitten or stung by n onvenomous insect and other nonvenomous arthropods, initial encounter ICD-9: 919.4 ICD-10: W57.XXXA Active 01/08/2019 Unknown Cellulitis of left l ower limb ICD-9: 682.6 ICD-10: L03.116 Active 01/08/2019 Unknown Acute upper respirat ory infection, unspecified ICD-9: 465.9 ICD-10: J06.9 Active 05/16/2018 Unknown Basal cell carcinoma of skin of other parts of face ICD-9: 173.31 ICD-10: C44.319 Active 03/11/2018 Unknown Encounter for follow -up examination after completed treatment for conditions other than malignant neoplasm ICD-9: V67.9 ICD-10: Z09 Active 01/25/2018 Unknown Acute recurrent maxi llary sinusitis ICD-9: 461.0 ICD-10: J01.01 Active 11/01/2017 Unknown Cough ICD-9: 786.2 ICD-10: R05 Active 11/01/2017 Unknown Olecranon bursitis, left elbow ICD-9: 726.33 ICD-10: M70.22 Active 09/11/2017 Unknown Essential (primary) hypertension ICD-9: 401.1 ICD-10: I10 Active 09/03/2017 Unknown Bitten by dog, initi al encounter ICD-9: 879.8 ICD-10: W54.0XXA Active 08/27/2017 Unknown Essential (primary) hypertension ICD-9: 401.9 ICD-10: I10 Active 12/30/2014 Unknown Idiopathic gout, lef t ankle and foot ICD-9: 274.9 ICD-10: M10.072 Active 12/05/2016 Unknown Dysuria ICD-9: 788.1 ICD-10: R30.0 Active 09/26/2015 Unknown Diseases of lips ICD-9: 528.5 ICD-10: K13.0 Active 06/05/2016 Unknown Mixed hyperlipidemia ICD-9: 272.4 ICD-10: E78.2 Active 12/30/2014 Unknown Personal history of other malignant neoplasm of bronchus and lung ICD-9: V10.11 ICD-10: Z85.118 Active 06/05/2016 Unknown Bicipital tendinitis , right shoulder ICD-9: 726.12 ICD-10: M75.21 Active 12/06/2015 Unknown Pain in right shoulder ICD-9: 719.41 ICD-10: M25.511 Active 06/28/2015 Unknown Hyperlipidemia Unknown Active 12/31/2014 Unknow n Hypertension Unknown Active 12/31/2014 Unknow n ESSENTIAL HYPERTENSION ICD-9: 401.9 Active 12/30/2014 Unknown HYPERLIPIDEMIA ICD-9: 272.4 Active 12/30/2014 Unknown Problems Condition Codes Effectiv e Dates Condition Status Actinic keratosis ICD-9: 702.0 ICD-10: L57.0 03/11/2018 Active Bitten or stung by n onvenomous insect and other nonvenomous arthropods, initial encounter ICD-9: 919.4 ICD-10: W57.XXXA 01/08/2019 Active Cellulitis of left l ower limb ICD-9: 682.6 ICD-10: L03.116 01/08/2019 Active Acute upper respirat ory infection, unspecified ICD-9: 465.9 ICD-10: J06.9 05/16/2018 Active Basal cell carcinoma of skin of other parts of face ICD-9: 173.31 ICD-10: C44.319 03/11/2018 Active Encounter for follow -up examination after completed treatment for conditions other than malignant neoplasm ICD-9: V67.9 ICD-10: Z09 01/25/2018 Active Acute recurrent maxi llary sinusitis ICD-9: 461.0 ICD-10: J01.01 11/01/2017 Active Cough ICD-9: 786.2 ICD-10: R05 11/01/2017 Active Olecranon bursitis, left elbow ICD-9: 726.33 ICD-10: M70.22 09/11/2017 Active Essential (primary) hypertension ICD-9: 401.1 ICD-10: I10 09/03/2017 Active Bitten by dog, initi al encounter ICD-9: 879.8 ICD-10: W54.0XXA 08/27/2017 Active Essential (primary) hypertension ICD-9: 401.9 ICD-10: I10 12/30/2014 Active Idiopathic gout, lef t ankle and foot ICD-9: 274.9 ICD-10: M10.072 12/05/2016 Active Dysuria ICD-9: 788.1 ICD-10: R30.0 09/26/2015 Active Diseases of lips ICD-9: 528.5 ICD-10: K13.0 06/05/2016 Active Mixed hyperlipidemia ICD-9: 272.4 ICD-10: E78.2 12/30/2014 Active Personal history of other malignant neoplasm of bronchus and lung ICD-9: V10.11 ICD-10: Z85.118 06/05/2016 Active Bicipital tendinitis , right shoulder ICD-9: 726.12 ICD-10: M75.21 12/06/2015 Active Pain in right shoulder ICD-9: 719.41 ICD-10: M25.511 06/28/2015 Active Hyperlipidemia Unknown 12/31/2014 Active Hypertension Unknown 12/31/2014 Active ESSENTIAL HYPERTENSION ICD-9: 401.9 12/30/2014 Active HYPERLIPIDEMIA ICD-9: 272.4 12/30/2014 Active Medications Medication Codes Instruc tions Start Date Stop Date Sta tus Fill Instructions lisinopril 10 mg-hyd rochlorothiazide 12.5 mg tablet RxNorm: 693960 TAKE 1 TABLET BY MOUTH ONCE DAILY 04/14/2019 No Stop Date Active dapsone 100 mg tablet RxNorm: 786228 1 Tablet(s) PO daily 01/08/2019 01/14/2019 Inactive doxycycline hyclate 100 mg capsule RxNorm: 1691689 1 Capsule(s) PO BID 01/08/2019 01/17/2019 In active Coreg 3.125 mg tablet RxNorm: 140730 1 Tablet(s) PO BID 10/08/2018 04/05/2019 Inactive omeprazole 20 mg cap owen,delayed release RxNorm: 257719 Capsule(s) TAKE ONE C APSULE BY MOUTH ONCE DAILY 07/09/2018 No Stop Date Active lovastatin 40 mg tablet RxNorm: 475024 Tablet(s) TAKE ONE TABLET BY MOUTH ONCE DAILY 07/09/2018 07/03/2019 Ac tive omeprazole 20 mg cap owen,delayed release RxNorm: 114466 TAKE ONE CAPSULE BY M OUTH ONCE DAILY 06/10/2018 07/08/2018 Inactive Coreg 3.125 mg tablet RxNorm: 783957 1 Tablet(s) PO BID 04/01/2018 09/27/2018 Inactive lisinopril 10 mg-hyd rochlorothiazide 12.5 mg tablet RxNorm: 368222 1 Tablet(s) PO daily 04/01/2018 04/13/2019 Inactive lovastatin 40 mg tablet RxNorm: 498433 Tablet(s) TAKE ONE TABLET BY MOUTH ONCE DAILY 03/11/2018 07/08/2018 Inactive lovastatin 40 mg tablet RxNorm: 016995 TAKE ONE TABLET BY MOUTH ONCE DAILY 12/17/2017 03/10/2018 In active Keflex 500 mg capsule RxNorm: 639208 1 Capsule(s) PO TID 11/01/2017 11/07/2017 Inactive doxycycline hyclate 100 mg capsule RxNorm: 7839007 1 Capsule(s) PO BID 09/11/2017 09/17/2017 In active Coreg 3.125 mg tablet RxNorm: 494609 1 Tablet(s) PO BID 09/03/2017 03/31/2018 Inactive Coreg 3.125 mg tablet RxNorm: 983262 1 Tablet(s) PO BID 09/03/2017 09/02/2017 Inactive doxycycline hyclate 100 mg capsule RxNorm: 8689378 1 Capsule(s) PO BID 08/27/2017 09/02/2017 In active lovastatin 40 mg tablet RxNorm: 895017 1 Tablet(s) PO daily 08/08/2017 12/05/2017 Inactive omeprazole 20 mg cap owen,delayed release RxNorm: 732218 1 Capsule(s) PO daily 07/23/2017 06/09/2018 In active lisinopril 10 mg-hyd rochlorothiazide 12.5 mg tablet RxNorm: 276368 1 Tablet(s) PO daily 07/09/2017 03/31/2018 Inactive patient needs to call the office to raegan haynes fluorouracil 5 % top ical cream RxNorm: 903016 1 Gram(s) TOP BID x2 weeks ONLY 03/26/2017 04/08/2017 In active fluorouracil 5 % top ical cream RxNorm: 884509 1 Gram(s) TOP BID x2 weeks ONLY 03/26/2017 03/25/2017 In active Colcrys 0.6 mg tablet RxNorm: 109586 2 Tablet(s) PO UD 12/05/2016 No Stop Date Active 2 ta bs today then 1 tab daily x 5 days then prn gout lisinopril 10 mg-hyd rochlorothiazide 12.5 mg tablet RxNorm: 408149 1 Tablet(s) PO daily 10/12/2016 07/08/2017 Inactive Cipro 500 mg tablet RxNorm: 776933 1 Tablet(s) PO BID 10/02/2016 10/08/2016 Inactive Cipro 500 mg tablet RxNorm: 459824 1 Tablet(s) PO BID 10/02/2016 10/01/2016 Inactive lovastatin 40 mg tablet RxNorm: 924627 Tablet(s) PO 07/27/2016 08/07/2017 Inactive Cipro 500 mg tablet RxNorm: 440686 1 Tablet(s) PO BID 09/27/2015 09/26/2015 Inactive Cipro 500 mg tablet RxNorm: 412342 1 Tablet(s) PO BID 09/27/2015 10/03/2015 Inactive omeprazole 20 mg cap owen,delayed release RxNorm: 986519 1 Capsule(s) PO daily 07/06/2015 06/29/2016 In active lisinopril 10 mg-hyd rochlorothiazide 12.5 mg tablet RxNorm: 046424 1 Tablet(s) PO daily 07/06/2015 10/03/2015 Inactive lovastatin 40 mg tablet RxNorm: 168872 Tablet(s) PO 12/31/2014 07/26/2016 Inactive lisinopril 10 mg-hyd rochlorothiazide 12.5 mg tablet RxNorm: 950417 1 Tablet(s) PO daily 12/31/2014 03/30/2015 Inactive Ocuvite oral RxNorm: 957844 oral No Start Date Active aspirin 81 mg tablet ,delayed release RxNorm: 990283 1 Tablet(s) PO daily No Start Date Active Prilosec oral RxNorm: 7646 oral No Start Date 12/07/2015 Inactive lovastatin oral RxNorm: 217812 oral No Start Date 12/30/2014 Inactive Medication Administered No Medication Administered data Immunizations Vaccine Codes Date Status Influenza CVX: 141 05/18 completed Assessments Condition Codes Effectiv e Dates Actinic keratosis ICD-10: L57.0 ICD-9: 702.0 04/01/2019 Cellulitis of left lower limb ICD-10 : L03.116 ICD-9: 682.6 01/08/2019 Bitten or stung by nonvenomous insect an d other nonvenomous arthropods, initial encounter ICD-10: W57.XXXA ICD-9: 919.4 01/08/2019 Acute upper respiratory infection, unspecified ICD-10: J06.9 ICD-9: 465.9 05/16/2018 Basal cell carcinoma of skin of other parts of face ICD-10: C44.319 ICD-9: 173.31 03/11/2018 Encounter for follow-up examination afte r completed treatment for conditions other than malignant neoplasm ICD-10: Z09 ICD-9: V67.9 01/25/2018 Acute recurrent maxillary sinusitis ICD-10: J01.01 ICD-9: 461.0 11/01/2017 Cough ICD-10: R05 ICD-9: 786.2 11/01/2017 Olecranon bursitis, left elbow ICD-1 0: M70.22 ICD-9: 726.33 09/11/2017 Essential (primary) hypertension ICD -10: I10 ICD-9: 401.1 09/03/2017 Essential (primary) hypertension ICD -10: I10 ICD-9: 401.9 08/27/2017 Bitten by dog, initial encounter ICD -10: W54.0XXA ICD-9: 879.8 08/27/2017 Idiopathic gout, left ankle and foot ICD-10: M10.072 ICD-9: 274.9 12/05/2016 Dysuria ICD-10: R30.0 ICD-9: 788.1 10/02/2016 Diseases of lips ICD-10: K13.0 ICD-9: 528.5 06/06/2016 Personal history of other malignant neop lasm of bronchus and lung ICD-10: Z85.118 ICD-9: V10.11 06/06/2016 Mixed hyperlipidemia ICD-10: E78.2 ICD-9: 272.4 06/06/2016 Bicipital tendinitis, right shoulder ICD-10: M75.21 ICD-9: 726.12 12/07/2015 Pain in right shoulder ICD-10: M25.5 11 ICD-9: 719.41 06/29/2015 ESSENTIAL HYPERTENSION ICD-9: 401.9 12/31/2014 HYPERLIPIDEMIA ICD-9: 272.4 12/31/2014 Reason For Visit Reason For Visit Effective Dates Notes skin lesion 04/01/2019 arthropod bite 01/08/2019 skin lesion 05/16/2018 skin lesion 03/11/2018 Hospital Follow Up 01/25/2018 cough 11/01/2017 elbow pain 09/11/2017 hypertension 09/03/2017 hypertension 08/27/2017 ER follow up [...] 14.9 g/dl 08/27/2017 Cbc With Differential Ord2 HCT 43.2 % 08/27/2017 Cbc With Differential Ord2 Neut% 58.3 % 08/27/2017 Cbc With Differential Ord2 MCV 90.8 fl 08/27/2017 Cbc With Differential Ord2 Lymph% 26.4 % 08/27/2017 Cbc With Differential Ord2 MCH 31.3 pg 08/27/2017 Cbc With Differential Ord2 [place]% 12.7 % 08/27/2017 Cbc With Differential Ord2 [...] 1.75 K/ul 08/27/2017 Cbc With Differential Ord2 [place] ABS# 0.8 K/ul 08/27/2017 Cbc With Differential Ord2 Eos ABS# 0.1 K/ul 08/27/2017 Cbc With Differential Ord2 Baso ABS# 0.0 K/ul 08/27/2017 Lipid Ord30 CHOL 170 mg/dL 08/27/2017 Lipid Ord30 HDL 52.0 mg/dl 08/27/2017 Lipid Ord30 TRIG 106 mg/dL 08/27/2017 Lipid Ord30 LDL 97 mg/dL 08/27/2017 Lipid Ord30 C/HDL 3.3 Ratio 08/27/2017 Total Psa Ord10 PSA 1.09 ng/mL 08/27/2017 Comp Metabolic Yfc525 NA 136 mEq/L 08/27/2017 Comp Metabolic Zjf417 K 4.2 mEq/L 08/27/2017 Comp Metabolic Rwd956 CL 98 mEq/L 08/27/2017 Comp Metabolic Pnc112 CO2 26.0 mEq/L 08/27/2017 Comp Metabolic Xel138 AN ION GAP 16 08/27/2017 Comp Metabolic Lhd538 GL UCOSE 119 mg/dL 08/27/2017 Comp Metabolic Bwi920 Cr eat 1.2 mg/dL 08/27/2017 Comp Metabolic Lam024 eG FR 67 ml/min/1.73m2 08/27 Comp Metabolic Xwl630 BUN 14 mg/dL 08/27/2017 Comp Metabolic Bsr549 B/ C Ratio 12.2 Ratio 08/27/2017 Comp Metabolic Jpw033 CA LCIUM 9.5 mg/dL 08/27/2017 Comp Metabolic Dyo049 AL K PHOS 60 U/L 08/27/2017 Comp Metabolic Kdg261 T(SGOT) 40 U/L 08/27/2017 Comp Metabolic Axc639 AL T(SGPT) 40 U/L 08/27/2017 Comp Metabolic Xwi336 BI LI T 0.6 mg/dL 08/27/2017 Comp Metabolic Ndr200 AL BUMIN 4.4 g/dL 08/27/2017 Comp Metabolic Oyg612 TP RO 6.9 g/dL 08/27/2017 Comp Metabolic Zgl306 GL OB 2.5 g/dL 08/27/2017 Comp Metabolic Gqw831 A/ G Ratio 1.7 Ratio 08/27/2017 Comp Metabolic Yon658 Os mo 274 mOsmo 08/27/2017 Comp Metabolic Kgh047 NA 137 mEq/L 01/23/2017 Comp Metabolic Tnw912 K 4.7 mEq/L 01/23/2017 Comp Metabolic Wxz412 CL 99 mEq/L 01/23/2017 Comp Metabolic Egs296 CO2 30.0 mEq/L 01/23/2017 Comp Metabolic Wzq668 AN ION GAP 13 01/23/2017 Comp Metabolic Com419 GL UCOSE 92 mg/dL 01/23/2017 Comp Metabolic Yik041 Cr eat 1.0 mg/dL 01/23/2017 Comp Metabolic Ntx028 eG FR 77 ml/min/1.73m2 01/23 Comp Metabolic Ani132 BUN 13 mg/dL 01/23/2017 Comp Metabolic Ryp893 B/ C Ratio 12.7 Ratio 01/23/2017 Comp Metabolic Ccq941 CA LCIUM 9.3 mg/dL 01/23/2017 Comp Metabolic Lrn043 AL K PHOS 56 U/L 01/23/2017 Comp Metabolic Xnx552 T(SGOT) 26 U/L 01/23/2017 Comp Metabolic Fec235 AL T(SGPT) 25 U/L 01/23/2017 Comp Metabolic Egn922 BI LI T 0.5 mg/dL 01/23/2017 Comp Metabolic Xcj862 AL BUMIN 4.2 g/dL 01/23/2017 Comp Metabolic Mrw703 TP RO 6.9 g/dL 01/23/2017 Comp Metabolic Gjy234 GL OB 2.7 g/dL 01/23/2017 Comp Metabolic Ybl381 A/ G Ratio 1.5 Ratio 01/23/2017 Comp Metabolic Xvo951 Os mo 274 mOsmo 01/23/2017 Cbc With Differential Ord2 WBC 8.45 K/ul 12/05/2016 Cbc With Differential Ord2 RBC 4.60 M/ul 12/05/2016 Cbc With Differential Ord2 HGB 14.5 g/dl 12/05/2016 Cbc With Differential Ord2 HCT 42.0 % 12/05/2016 Cbc With Differential Ord2 Neut% 65.1 % 12/05/2016 Cbc With Differential Ord2 MCV 91.3 fl 12/05/2016 Cbc With Differential Ord2 Lymph% 19.5 % 12/05/2016 Cbc With Differential Ord2 MCH 31.5 pg 12/05/2016 Cbc With Differential Ord2 [place]% 13.0 % 12/05/2016 Cbc With Differential Ord2 [...] 1.65 K/ul 12/05/2016 Cbc With Differential Ord2 [place] ABS# 1.1 K/ul 12/05/2016 Cbc With Differential Ord2 Eos ABS# 0.2 K/ul 12/05/2016 Cbc With Differential Ord2 Baso ABS# 0.0 K/ul 12/05/2016 Uric Acid Ord77 Uric A 6.5 mg/dL 12/05/2016 Comp Metabolic Hux004 NA 136 mEq/L 12/05/2016 Comp Metabolic Wsh582 K 4.4 mEq/L 12/05/2016 Comp Metabolic Bxq385 CL 99 mEq/L 12/05/2016 Comp Metabolic Lxw978 CO2 28.0 mEq/L 12/05/2016 Comp Metabolic Zdf399 AN ION GAP 13 12/05/2016 Comp Metabolic Snm158 GL UCOSE 84 mg/dL 12/05/2016 Comp Metabolic Ebu414 Cr eat 1.0 mg/dL 12/05/2016 Comp Metabolic Tql325 eG FR 84 ml/min/1.73m2 12/05 Comp Metabolic Mpw205 BUN 14 mg/dL 12/05/2016 Comp Metabolic Mej290 B/ C Ratio 14.7 Ratio 12/05/2016 Comp Metabolic Qxi667 CA LCIUM 9.0 mg/dL 12/05/2016 Comp Metabolic Tnc828 AL K PHOS 55 U/L 12/05/2016 Comp Metabolic Lji903 T(SGOT) 26 U/L 12/05/2016 Comp Metabolic Yaf175 AL T(SGPT) 25 U/L 12/05/2016 Comp Metabolic Hup771 BI LI T 0.4 mg/dL 12/05/2016 Comp Metabolic Dtd114 AL BUMIN 4.1 g/dL 12/05/2016 Comp Metabolic Hvk935 TP RO 6.8 g/dL 12/05/2016 Comp Metabolic Jvl992 GL OB 2.7 g/dL 12/05/2016 Comp Metabolic Eyq952 A/ G Ratio 1.5 Ratio 12/05/2016 Comp Metabolic Snx269 Os mo 272 mOsmo 12/05/2016 Comp Metabolic Dtn054 NA 136 mEq/L 11/13/2016 Comp Metabolic Zap557 K 4.2 mEq/L 11/13/2016 Comp Metabolic Dqd394 CL 98 mEq/L 11/13/2016 Comp Metabolic Yie501 CO2 29.0 mEq/L 11/13/2016 Comp Metabolic Gzk746 AN ION GAP 13 11/13/2016 Comp Metabolic Qaf681 GL UCOSE 94 mg/dL 11/13/2016 Comp Metabolic Yui555 Cr eat 1.0 mg/dL 11/13/2016 Comp Metabolic Cti741 eG FR 78 ml/min/1.73m2 11/13 Comp Metabolic Ruf256 BUN 12 mg/dL 11/13/2016 Comp Metabolic Jaw784 B/ C Ratio 11.9 Ratio 11/13/2016 Comp Metabolic Pqv086 CA LCIUM 9.4 mg/dL 11/13/2016 Comp Metabolic Hpz235 AL K PHOS 56 U/L 11/13/2016 Comp Metabolic Nzs389 T(SGOT) 25 U/L 11/13/2016 Comp Metabolic Sxw967 AL T(SGPT) 25 U/L 11/13/2016 Comp Metabolic Ake441 BI LI T 0.6 mg/dL 11/13/2016 Comp Metabolic Swu213 AL BUMIN 4.2 g/dL 11/13/2016 Comp Metabolic Ljg005 TP RO 6.7 g/dL 11/13/2016 Comp Metabolic Pqh785 GL OB 2.5 g/dL 11/13/2016 Comp Metabolic Ecb616 A/ G Ratio 1.6 Ratio 11/13/2016 Comp Metabolic Hqf577 Os mo 271 mOsmo 11/13/2016 Urine Culture Ucult Prel iminary NO Growth Day 1 10/04 Urine Culture Ucult Comp lete NO Growth Day 2 10/04 Lipid Ord30 CHOL 197 mg/dL 06/12/2016 Lipid [...] 22.0 % 06/12/2016 Cbc With Differential Ord2 MCH 31.2 pg 06/12/2016 Cbc With Differential Ord2 [place]% 15.1 % 06/12/2016 Cbc With Differential Ord2 MCHC 34.4 pg 06/12/2016 Cbc With Differential Ord2 Eos% 2.5 % 06/12/2016 Cbc With Differential Ord2 PLT 274 K/ul 06/12/2016 Cbc With Differential Ord2 Baso% 0.7 % 06/12/2016 Cbc With Differential Ord2 RDW 12.8 % 06/12/2016 Cbc With Differential Ord2 Neut ABS# 4.51 K/ul 06/12/2016 Cbc With Differential Ord2 Lymph ABS# 1.66 K/ul 06/12/2016 Cbc With Differential Ord2 [place] ABS# 1.1 K/ul 06/12/2016 Cbc With Differential Ord2 Eos ABS# 0.2 K/ul 06/12/2016 Cbc With Differential Ord2 Baso ABS# 0.1 K/ul 06/12/2016 Comp Metabolic Slt684 NA 132 mEq/L 06/12/2016 Comp Metabolic Rxj713 K 4.2 mEq/L 06/12/2016 Comp Metabolic Sfe954 CL 97 mEq/L 06/12/2016 Comp Metabolic Qsj129 CO2 28.0 mEq/L 06/12/2016 Comp Metabolic Tts307 AN ION GAP 11 06/12/2016 Comp Metabolic Pjq763 GL UCOSE 98 mg/dL 06/12/2016 Comp Metabolic Qzb309 Cr eat 1.0 mg/dL 06/12/2016 Comp Metabolic Cfr129 eG FR 78 ml/min/1.73m2 06/12 Comp Metabolic Tlp901 BUN 12 mg/dL 06/12/2016 Comp Metabolic Ebn924 B/ C Ratio 11.9 Ratio 06/12/2016 Comp Metabolic Chg763 CA LCIUM 9.2 mg/dL 06/12/2016 Comp Metabolic Aap144 AL K PHOS 58 U/L 06/12/2016 Comp Metabolic Iji012 T(SGOT) 23 U/L 06/12/2016 Comp Metabolic Lkx661 AL T(SGPT) 22 U/L 06/12/2016 Comp Metabolic Yur781 BI LI T 0.6 mg/dL 06/12/2016 Comp Metabolic Zdx524 AL BUMIN 4.2 g/dL 06/12/2016 Comp Metabolic Bpg458 TP RO 6.8 g/dL 06/12/2016 Comp Metabolic Qcl318 GL OB 2.6 g/dL 06/12/2016 Comp Metabolic Qmm232 A/ G Ratio 1.6 Ratio 06/12/2016 Comp Metabolic Sfa064 Os mo 264 mOsmo 06/12/2016 Tsh Ord6 hTSH II 2.41 uIU/mL 12/21/2015 Comp Metabolic Zod832 NA 135 mEq/L 12/21/2015 Comp Metabolic Djj884 K 4.2 mEq/L 12/21/2015 Comp Metabolic Yox089 CL 98 mEq/L 12/21/2015 Comp Metabolic Jge205 CO2 29.0 mEq/L 12/21/2015 Comp Metabolic Tsn025 AN ION GAP 12 12/21/2015 Comp Metabolic Rem804 GL UCOSE 99 mg/dL 12/21/2015 Comp Metabolic Ltk268 Cr eat 1.1 mg/dL 12/21/2015 Comp Metabolic Hrq967 eG FR 70 ml/min/1.73m2 12/20 Comp Metabolic Ymm128 BUN 17 mg/dL 12/21/2015 Comp Metabolic Eow257 B/ C Ratio 15.2 Ratio 12/21/2015 Comp Metabolic Jzy162 CA LCIUM 9.1 mg/dL 12/21/2015 Comp Metabolic Uzb362 AL K PHOS 60 U/L 12/21/2015 Comp Metabolic Kmk467 T(SGOT) 23 U/L 12/21/2015 Comp Metabolic Yan436 AL T(SGPT) 22 U/L 12/21/2015 Comp Metabolic Txe538 BI LI T 0.6 mg/dL 12/21/2015 Comp Metabolic Njm995 AL BUMIN 4.3 g/dL 12/21/2015 Comp Metabolic Zoe444 TP RO 7.0 g/dL 12/21/2015 Comp Metabolic Yat498 GL OB 2.8 g/dL 12/21/2015 Comp Metabolic Lla644 A/ G Ratio 1.5 Ratio 12/21/2015 Comp Metabolic Nki481 Os mo 272 mOsmo 12/21/2015 Cbc With Differential Ord2 [...] 30.5 pg 12/21/2015 Cbc With Differential Ord2 [place]% 15.3 % 12/21/2015 Cbc With Differential Ord2 [...] 1.58 K/ul 12/21/2015 Cbc With Differential Ord2 [place] ABS# 1.0 K/ul 12/21/2015 Cbc With Differential Ord2 Eos ABS# 0.2 K/ul 12/21/2015 Cbc With Differential Ord2 Baso ABS# 0.0 K/ul 12/21/2015 Cbc With Differential Ord2 New Analyzer Notice Please note new ref ranges s tarting 08-18-2015 due to implemntation of new five part differential hematolgy analyzer. 12/21/2015 Lipid Ord30 CHOL 190 mg/dL 12/21/2015 Lipid Ord30 HDL 56.0 mg/dl 12/21/2015 Lipid Ord30 TRIG 110 mg/dL 12/21/2015 Lipid Ord30 LDL 112 mg/dL 12/21/2015 Lipid Ord30 C/HDL 3.4 Ratio 12/21/2015 Urine Culture Ucult Prel iminary No Growth Day 1 09/29 Urine Culture Ucult Comp lete No Growth Day 2 09/29 Review of Systems System Result Effective Dates Constitutional No recent illness 04/01/2019 Constitutional No anorexia 04/01/2019 Constitutional No night sweats 04/01/2019 Constitutional No chills 04/01/2019 Constitutional No diaphoresis 04/01/2019 Constitutional No fatigue 04/01/2019 Constitutional No fever 04/01/2019 Constitutional No insomnia 04/01/2019 Constitutional No malaise 04/01/2019 Constitutional No weight loss 04/01/2019 Constitutional No weight gain 04/01/2019 Dermatologic actinic keratosis 04/01/2019 Constitutional No recent illness 01/08/2019 Constitutional No chills 01/08/2019 Constitutional No diaphoresis 01/08/2019 Constitutional No fever 01/08/2019 Eyes No eye erythema 12/2018 Ears/Nose/Throat/Neck No nasal discharge 01/08/2019 Cardiovascular No chest pain/pressure 01/08/2019 Respiratory No cough 12/2018 Neurologic No alteration of consciousness 01/08/2019 Neurologic No mental status change 01/08/2019 Dermatologic erythema Cardiovascular No edema 05/16/2018 Cardiovascular No dyspnea 05/16/2018 Respiratory No cough 06/2018 Ears/Nose/Throat/Neck sore throat 05/16/2018 Dermatologic sores 05/16 Dermatologic scar 2017 Dermatologic skin cancer 05/16/2018 Dermatologic skin lesion 05/16/2018 Constitutional recent illness 05/16/2018 Constitutional No anorexia 05/16/2018 Constitutional No night sweats 05/16/2018 Constitutional No chills 05/16/2018 Constitutional No diaphoresis 05/16/2018 Constitutional No fatigue 05/16/2018 Constitutional No fever 05/16/2018 Constitutional No insomnia 05/16/2018 Constitutional No malaise 05/16/2018 Constitutional No weight loss 05/16/2018 Constitutional No weight gain 05/16/2018 Eyes No eye discharge Eyes No eye erythema 06/2018 Gastrointestinal No abdominal pain 05/16/2018 Musculoskeletal No joint complaint 05/16/2018 Constitutional No recent illness 03/11/2018 Constitutional No diaphoresis 03/11/2018 Constitutional No chills 03/11/2018 Constitutional No fever 03/11/2018 Eyes No eye erythema 01/2018 Ears/Nose/Throat/Neck No nasal discharge 03/11/2018 Cardiovascular No chest pain/pressure 03/11/2018 Respiratory No cough 01/2018 Dermatologic sores 03/11 Neurologic No alteration of consciousness 03/11/2018 Neurologic No mental status change 03/11/2018 Constitutional recent illness 01/25/2018 Constitutional No chills 01/25/2018 Constitutional No diaphoresis 01/25/2018 Constitutional No fever 01/25/2018 Eyes No eye erythema Ears/Nose/Throat/Neck No nasal discharge 01/25/2018 Ears/Nose/Throat/Neck No nasal allergies 01/25/2018 Cardiovascular No chest pain/pressure 01/25/2018 Cardiovascular No dyspnea 01/25/2018 Respiratory No cough Respiratory No chest congestion 01/25/2018 Gastrointestinal No abdominal pain 01/25/2018 Dermatologic No rash Neurologic No alteration of consciousness 01/25/2018 Neurologic No mental status change 01/25/2018 Genitourinary/Nephrology No dysuria 01/25/2018 Genitourinary/Nephrology No flank pain 01/25/2018 Genitourinary/Nephrology No hematuria 01/25/2018 Constitutional recent illness 11/01/2017 Constitutional No anorexia 11/01/2017 Constitutional No night sweats 11/01/2017 Constitutional No chills 11/01/2017 Constitutional diaphoresis 11/01/2017 Constitutional fatigue 0 11/01/2017 Constitutional No fever 11/01/2017 Constitutional No insomnia 11/01/2017 Constitutional No malaise 11/01/2017 Constitutional No weight gain 11/01/2017 Constitutional No weight loss 11/01/2017 Eyes No eye erythema Eyes eye discharge 11/01 Ears/Nose/Throat/Neck nasal discharge 11/01/2017 Ears/Nose/Throat/Neck No otalgia 11/01/2017 Ears/Nose/Throat/Neck sinus congestion 11/01/2017 Ears/Nose/Throat/Neck No sore throat 11/01/2017 Cardiovascular No chest pain/pressure 11/01/2017 Cardiovascular No dyspnea 11/01/2017 Cardiovascular No edema 11/01/2017 Respiratory cough 2017 Respiratory No chest congestion 11/01/2017 Respiratory productive sputum 11/01/2017 Gastrointestinal No abdominal pain 11/01/2017 Gastrointestinal No constipation 11/01/2017 Gastrointestinal No diarrhea 11/01/2017 Genitourinary/Nephrology No dysuria 11/01/2017 Musculoskeletal No joint complaint 11/01/2017 Dermatologic No rash Constitutional No recent illness 09/11/2017 Constitutional No chills 09/11/2017 Constitutional No fever 09/11/2017 Eyes No eye erythema 01/2018 Ears/Nose/Throat/Neck No nasal discharge 09/11/2017 Cardiovascular No chest pain/pressure 09/11/2017 Cardiovascular No dyspnea 09/11/2017 Respiratory No cough 01/2018 Respiratory No dyspnea 0 09/11/2017 Musculoskeletal joint complaint 09/11/2017 Neurologic No alteration of consciousness 09/11/2017 Neurologic No mental status change 09/11/2017 Cardiovascular hypertension 09/11/2017 Constitutional No recent illness 08/27/2017 Constitutional No chills 08/27/2017 Constitutional No diaphoresis 08/27/2017 Constitutional No fever 08/27/2017 Eyes No eye discharge Eyes No eye erythema Cardiovascular No chest pain/pressure 08/27/2017 Cardiovascular No dyspnea 08/27/2017 Respiratory No cough Gastrointestinal No abdominal pain 08/27/2017 Gastrointestinal No constipation 08/27/2017 Gastrointestinal No diarrhea 08/27/2017 Musculoskeletal joint complaint 08/27/2017 Neurologic No alteration of consciousness 08/27/2017 Ears/Nose/Throat/Neck No nasal discharge 08/27/2017 Dermatologic sores 08/27 Neurologic No mental status change 08/27/2017 Constitutional No recent illness 12/05/2016 Constitutional No anorexia 12/05/2016 Constitutional No night sweats 12/05/2016 Constitutional No chills 12/05/2016 Constitutional No fatigue 12/05/2016 Constitutional No fever 12/05/2016 Constitutional No diaphoresis 12/05/2016 Constitutional No insomnia 12/05/2016 Constitutional No malaise 12/05/2016 Constitutional No weight loss 12/05/2016 Constitutional No weight gain 12/05/2016 Eyes No eye discharge Eyes No eye erythema 09/2016 Ears/Nose/Throat/Neck No dizziness 12/05/2016 Ears/Nose/Throat/Neck No headache 12/05/2016 Cardiovascular No chest pain/pressure 12/05/2016 Cardiovascular No dyspnea 12/05/2016 Cardiovascular No edema 12/05/2016 Respiratory No cough 09/2016 Gastrointestinal No abdominal pain 12/05/2016 Gastrointestinal No constipation 12/05/2016 Gastrointestinal No diarrhea 12/05/2016 Genitourinary/Nephrology No dysuria 12/05/2016 Musculoskeletal joint complaint 12/05/2016 Dermatologic erythema Neurologic No alteration of consciousness 12/05/2016 Psychiatric No anxiety 0 12/05/2016 Endocrine No dry or coarse skin 12/05/2016 Hematologic/Lymphatic No abnormal bl eeding and bruising 12/05/2016 Constitutional No recent illness 06/06/2016 Constitutional No chills 06/06/2016 Constitutional No fatigue 06/06/2016 Constitutional No fever 06/06/2016 Eyes No blindness 2015 Eyes No vision change Ears/Nose/Throat/Neck No dizziness 06/06/2016 Ears/Nose/Throat/Neck No headache 06/06/2016 Cardiovascular No chest pain/pressure 06/06/2016 Cardiovascular No near-syncope/dizziness 06/06/2016 Cardiovascular No palpitations 06/06/2016 Respiratory No chest congestion 06/06/2016 Respiratory No cough 08/2015 Gastrointestinal No abdominal pain 06/06/2016 Gastrointestinal No constipation 06/06/2016 Gastrointestinal No diarrhea 06/06/2016 Gastrointestinal No nausea 06/06/2016 Gastrointestinal No vomiting 06/06/2016 Genitourinary/Nephrology No dysuria 06/06/2016 Musculoskeletal No stiffness 06/06/2016 Musculoskeletal No swelling 06/06/2016 Musculoskeletal No muscle weakness 06/06/2016 Musculoskeletal No myalgias 06/06/2016 Dermatologic No rash 08/2015 Dermatologic No scar 08/2015 Neurologic No alteration of consciousness 06/06/2016 Psychiatric No anxiety 1 08/06/2015 Psychiatric No depression 06/06/2016 Dermatologic sores 06/06 Constitutional No recent illness 12/07/2015 Constitutional No chills 12/07/2015 Constitutional No fatigue 12/07/2015 Constitutional No fever 12/07/2015 Eyes No blindness 2015 Eyes No vision change Ears/Nose/Throat/Neck No dizziness 12/07/2015 Ears/Nose/Throat/Neck No headache 12/07/2015 Cardiovascular No chest pain/pressure 12/07/2015 Cardiovascular No near-syncope/dizziness 12/07/2015 Cardiovascular No palpitations 12/07/2015 Respiratory No chest congestion 12/07/2015 Respiratory No cough 10/2015 Gastrointestinal No abdominal pain 12/07/2015 Gastrointestinal No constipation 12/07/2015 Gastrointestinal No diarrhea 12/07/2015 Gastrointestinal No nausea 12/07/2015 Gastrointestinal No vomiting 12/07/2015 Genitourinary/Nephrology No dysuria 12/07/2015 Musculoskeletal stiffness 12/07/2015 Musculoskeletal No swelling 12/07/2015 Musculoskeletal No muscle weakness 12/07/2015 Musculoskeletal No myalgias 12/07/2015 Musculoskeletal shoulder pain 12/07/2015 Dermatologic No rash 10/2015 Dermatologic No scar 10/2015 Neurologic No alteration of consciousness 12/07/2015 Psychiatric No anxiety 0 12/07/2015 Psychiatric No depression 12/07/2015 Constitutional No recent illness 06/29/2015 Constitutional No chills 06/29/2015 Constitutional No fatigue 06/29/2015 Constitutional No fever 06/29/2015 Eyes No blindness 2014 Eyes No vision change Ears/Nose/Throat/Neck No dizziness 06/29/2015 Ears/Nose/Throat/Neck No headache 06/29/2015 Cardiovascular No chest pain/pressure 06/29/2015 Cardiovascular No near-syncope/dizziness 06/29/2015 Cardiovascular No palpitations 06/29/2015 Respiratory No chest congestion 06/29/2015 Respiratory No cough Gastrointestinal No abdominal pain 06/29/2015 Gastrointestinal No constipation 06/29/2015 Gastrointestinal No diarrhea 06/29/2015 Gastrointestinal No nausea 06/29/2015 Gastrointestinal No vomiting 06/29/2015 Genitourinary/Nephrology No dysuria 06/29/2015 Musculoskeletal stiffness 06/29/2015 Musculoskeletal No swelling 06/29/2015 Musculoskeletal No muscle weakness 06/29/2015 Musculoskeletal No myalgias 06/29/2015 Dermatologic No rash Dermatologic No scar Neurologic No alteration of consciousness 06/29/2015 Psychiatric No anxiety 1 08/29/2014 Psychiatric No depression 06/29/2015 Musculoskeletal shoulder pain 06/29/2015 Constitutional No chills 12/31/2014 Constitutional No fatigue 12/31/2014 Constitutional No fever 12/31/2014 Constitutional No recent illness 12/31/2014 Ears/Nose/Throat/Neck No dizziness 12/31/2014 Ears/Nose/Throat/Neck No headache 12/31/2014 Cardiovascular No chest pain/pressure 12/31/2014 Cardiovascular No near-syncope/dizziness 12/31/2014 Cardiovascular No palpitations 12/31/2014 Respiratory No chest congestion 12/31/2014 Respiratory No cough Gastrointestinal No abdominal pain 12/31/2014 Gastrointestinal No constipation 12/31/2014 Gastrointestinal No diarrhea 12/31/2014 Gastrointestinal No nausea 12/31/2014 Gastrointestinal No vomiting 12/31/2014 Genitourinary/Nephrology No dysuria 12/31/2014 Neurologic No alteration of consciousness 12/31/2014 Eyes No blindness 2014 Eyes No vision change Musculoskeletal No stiffness 12/31/2014 Musculoskeletal No swelling 12/31/2014 Musculoskeletal No muscle weakness 12/31/2014 Musculoskeletal No myalgias 12/31/2014 Dermatologic No rash Dermatologic No scar Psychiatric No anxiety 0 12/31/2014 Psychiatric No depression 12/31/2014 Physical Exam Exam Name System Name It em Name Status Result Effective Dates Notes Full Exam - Dermatology Constitutional general appearance Overall: well nourished 04/01/2019 None Full Exam - Dermatology Constitutional general appearance Overall: well developed 04/01/2019 None Full Exam - Dermatology Constitutional general appearance Overall: in no acute distress 04/01/2019 None Full Exam - Dermatology Constitutional general appearance Overall: of normal body habitus 04/01/2019 None Full Exam - Dermatology Constitutional general appearance Overall: well groomed 04/01/2019 None Full Exam - Dermatology Psychiatric orientation Overall: oriented to person, place and time 04/01/2019 None Full Exam - Dermatology Integument insp & palp - head/face Location: on the left ear 04/01/2019 AK left post auricular Full Exam - Dermatology Integument insp & palp - right upper extremity Location: on the forearm 04/01/2019 AKx 2 Full Exam - Dermatology Constitutional general appearance Overall: well nourished 01/08/2019 None Full Exam - Dermatology Constitutional general appearance Overall: well developed 01/08/2019 None Full Exam - Dermatology Constitutional general appearance Overall: in no acute distress 01/08/2019 None Full Exam - Dermatology Eyes conjunctiva/eyelids Overall: clear conjunctiva bilaterally 01/08/2019 None Full Exam - Dermatology Eyes conjunctiva/eyelids Overall: clear corneas 01/08/2019 None Full Exam - Dermatology Eyes conjunctiva/eyelids Overall: normal eyelids 01/08/2019 None Full Exam - Dermatology Ears/Nose/Throat lips/teeth/gingiva Overall: benign lips 01/08/2019 None Full Exam - Dermatology Ears/Nose/Throat oropharynx Overall: clear oral mucosa 01/08/2019 None Full Exam - Dermatology Respiratory respiratory effort/rhythm Overall: no retractions 01/08/2019 None Full Exam - Dermatology Respiratory respiratory effort/rhythm Overall: normal rate 01/08/2019 None Full Exam - Dermatology Musculoskeletal head and neck Overall: head atraumatic 01/08/2019 None Full Exam - Dermatology Psychiatric orientation Overall: oriented to person, place and time 01/08/2019 None Full Exam - Dermatology Psychiatric mood and affect Overall: normal mood and affect 01/08/2019 None Full Exam - Dermatology Integument insp & palp - left lower extremity Lesion: patch 01/08/2019 None Full Exam - Dermatology Integument insp & palp - left lower extremity Color: erythematous 01/08/2019 None Full Exam - Dermatology Integument insp & palp - left lower extremity Location: on the thigh 01/08/2019 None Full Exam - Dermatology Integument insp & palp - right upper extremity Location: on the upper arm 01/08/2019 None Full Exam - Dermatology Integument insp & palp - right upper extremity Lesion: patch 01/08/2019 None Full Exam - Dermatology Integument insp & palp - right upper extremity Color: erythematous 01/08/2019 mild Full Exam - General 1994 Constitutional general appearance Development: well developed 05/16/2018 None Full Exam - General 1994 Constitutional general appearance Development: appears stated age 1005/16/2018 None Full Exam - General 1994 Constitutional general appearance Hygiene/Attention to Grooming: good hygiene 05/16/2018 None Full Exam - General 1994 Eyes conjunctiva/eyelids Overall: conjunctiva clear 05/16/2018 None Full Exam - General 1994 Eyes conjunctiva/eyelids Overall: cornea clear 05/16/2018 None Full Exam - General 1994 Eyes conjunctiva/eyelids Overall: eyelids normal 05/16/2018 None Full Exam - General 1994 Eyes pupils and irises Overall: pupils equal, round, reactive to light and accomodation 05/16/2018 None Full Exam - General 1994 Ears/Nose/Throat otoscopic exam Overall: external auditory canals clear 05/16/2018 None Full Exam - General 1994 Ears/Nose/Throat otoscopic exam Overall: tympanic membranes clear 05/16/2018 None Full Exam - General 1994 Ears/Nose/Throat internal nose Sinus tenderness: left maxillary 05/16/2018 None Full Exam - General 1994 Ears/Nose/Throat internal nose Sinus tenderness: right maxillary 05/16/2018 None Full Exam - General 1994 Ears/Nose/Throat lips/teeth/gingiva Overall: benign lips 05/16/2018 None Full Exam - General 1994 Ears/Nose/Throat lips/teeth/gingiva Overall: normal dentition 05/16/2018 None Full Exam - General 1994 Ears/Nose/Throat oral cavity/pharynx/larynx Overall: oral mucosa clear 05/16/2018 None Full Exam - General 1994 Ears/Nose/Throat oral cavity/pharynx/larynx Overall: oropharyngeal mucosa clear 05/16/2018 None Full Exam - General 1994 Ears/Nose/Throat oral cavity/pharynx/larynx Overall: hypopharynx benign 05/16/2018 None Full Exam - General 1994 Ears/Nose/Throat oral cavity/pharynx/larynx Overall: no masses 05/16/2018 None Full Exam - General 1994 Respiratory auscultation Overall: breath sounds clear bilaterally 05/16/2018 None Full Exam - General 1994 Respiratory respiratory effort/rhythm Overall: no retractions 05/16/2018 None Full Exam - General 1994 Respiratory respiratory effort/rhythm Overall: normal rate 05/16/2018 None Full Exam - General 1994 Cardiovascular extremities Overall: no clubbing 05/16/2018 None Full Exam - General 1994 Cardiovascular auscultation of heart Overall: regular rate 05/16/2018 None Full Exam - General 1994 Cardiovascular auscultation of heart Overall: normal heart sounds 05/16/2018 None Full Exam - General 1994 Abdomen abdominal exam Overall: no tenderness 05/16/2018 None Full Exam - General 1994 Abdomen abdominal exam Overall: normal bowel sounds 05/16/2018 None Full Exam - General 1994 Neurologic deep tendon reflexes Overall: deep tendon reflexes intact 05/16/2018 None Full Exam - General 1994 Neurologic cranial nerves Overall: crainial nerves 2 - 12 grossly intact 05/16/2018 None Full Exam - General 1994 Psychiatric orientation/consciousness Overall: oriented to person, place and time 05/16/2018 None Full Exam - General 1994 Psychiatric mood and affect Overall: normal mood and affect 05/16/2018 None Full Exam - General 1994 Integument inspection of skin Location: face 05/16/2018 right caodaism Full Exam - Dermatology Constitutional general appearance Overall: well nourished 03/11/2018 None Full Exam - Dermatology Constitutional general appearance Overall: well developed 03/11/2018 None Full Exam - Dermatology Constitutional general appearance Overall: in no acute distress 03/11/2018 None Full Exam - Dermatology Eyes conjunctiva/eyelids Overall: clear conjunctiva bilaterally 03/11/2018 None Full Exam - Dermatology Eyes conjunctiva/eyelids Overall: normal eyelids 03/11/2018 None Full Exam - Dermatology Eyes conjunctiva/eyelids Overall: clear corneas 03/11/2018 None Full Exam - Dermatology Ears/Nose/Throat lips/teeth/gingiva Overall: benign lips 03/11/2018 None Full Exam - Dermatology Respiratory respiratory effort/rhythm Overall: normal rate 03/11/2018 None Full Exam - Dermatology Respiratory respiratory effort/rhythm Overall: no retractions 03/11/2018 None Full Exam - Dermatology Musculoskeletal head and neck Overall: head atraumatic 03/11/2018 None Full Exam - Dermatology Musculoskeletal gait and station Overall: normal station 03/11/2018 None Full Exam - Dermatology Musculoskeletal gait and station Overall: normal gait 03/11/2018 None Full Exam - Dermatology Integument insp & palp - head/face Lesion: ulcer 03/11/2018 None Full Exam - Dermatology Integument insp & palp - head/face Location: on the right caodaism 03/11/2018 None Full Exam - Dermatology Integument insp & palp - head/face Color: erythematous 03/11/2018 None Full Exam - Dermatology Integument insp & palp - head/face Lesion: patch 03/11/2018 AK Full Exam - Dermatology Psychiatric orientation Overall: oriented to person, place and time 03/11/2018 None Full Exam - Dermatology Psychiatric mood and affect Overall: normal mood and affect 03/11/2018 None Full Exam - General 1994 Constitutional general appearance Overall: well developed 01/25/2018 None Full Exam - General 1994 Constitutional general appearance Overall: in no acute distress 01/25/2018 None Full Exam - General 1994 Constitutional general appearance Overall: well nourished 01/25/2018 None Full Exam - General 1994 Eyes conjunctiva/eyelids Overall: conjunctiva clear 01/25/2018 None Full Exam - General 1994 Eyes conjunctiva/eyelids Overall: cornea clear 01/25/2018 None Full Exam - General 1994 Eyes conjunctiva/eyelids Overall: eyelids normal 01/25/2018 None Full Exam - General 1994 Ears/Nose/Throat lips/teeth/gingiva Overall: benign lips 01/25/2018 None Full Exam - General 1994 Ears/Nose/Throat oral cavity/pharynx/larynx Overall: oral mucosa clear 01/25/2018 None Full Exam - General 1994 Respiratory respiratory effort/rhythm Overall: no retractions 01/25/2018 None Full Exam - General 1994 Respiratory respiratory effort/rhythm Overall: normal rate 01/25/2018 None Full Exam - General 1994 Respiratory auscultation Overall: breath sounds clear bilaterally 01/25/2018 None Full Exam - General 1994 Cardiovascular auscultation of heart Overall: regular rate 01/25/2018 None Full Exam - General 1994 Cardiovascular auscultation of heart Overall: normal heart sounds 01/25/2018 None Full Exam - General 1994 Abdomen abdominal exam Overall: normal bowel sounds 01/25/2018 None Full Exam - General 1994 Musculoskeletal head and neck Overall: head atraumatic 01/25/2018 None Full Exam - General 1994 Neurologic cranial nerves Overall: crainial nerves 2 - 12 grossly intact 01/25/2018 None Full Exam - General 1994 Psychiatric orientation/consciousness Overall: oriented to person, place and time 01/25/2018 None Full Exam - General 1994 Psychiatric mood and affect Overall: normal mood and affect 01/25/2018 None Full Exam - General 1994 Psychiatric appearance Overall: well-groomed, good eye contact 01/25/2018 None Full Exam - General 1994 Constitutional general appearance Development: well developed 11/01/2017 None Full Exam - General 1994 Constitutional general appearance Development: appears stated age 0311/01/2017 None Full Exam - General 1994 Constitutional general appearance Hygiene/Attention to Grooming: good hygiene 11/01/2017 None Full Exam - General 1994 Eyes conjunctiva/eyelids Overall: conjunctiva clear 11/01/2017 None Full Exam - General 1994 Eyes conjunctiva/eyelids Overall: cornea clear 11/01/2017 None Full Exam - General 1994 Eyes conjunctiva/eyelids Overall: eyelids normal 11/01/2017 None Full Exam - General 1994 Eyes pupils and irises Overall: pupils equal, round, reactive to light and accomodation 11/01/2017 None Full Exam - General 1994 Ears/Nose/Throat otoscopic exam Overall: external auditory canals clear 11/01/2017 None Full Exam - General 1994 Ears/Nose/Throat otoscopic exam Overall: tympanic membranes clear 11/01/2017 None Full Exam - General 1994 Ears/Nose/Throat lips/teeth/gingiva Overall: benign lips 11/01/2017 None Full Exam - General 1994 Ears/Nose/Throat lips/teeth/gingiva Overall: normal dentition 11/01/2017 None Full Exam - General 1994 Ears/Nose/Throat oral cavity/pharynx/larynx Overall: oral mucosa clear 11/01/2017 None Full Exam - General 1994 Ears/Nose/Throat oral cavity/pharynx/larynx Overall: oropharyngeal mucosa clear 11/01/2017 None Full Exam - General 1994 Ears/Nose/Throat oral cavity/pharynx/larynx Overall: hypopharynx benign 11/01/2017 None Full Exam - General 1994 Ears/Nose/Throat oral cavity/pharynx/larynx Overall: no masses 11/01/2017 None Full Exam - General 1994 Respiratory auscultation Overall: breath sounds clear bilaterally 11/01/2017 None Full Exam - General 1994 Respiratory respiratory effort/rhythm Overall: no retractions 11/01/2017 None Full Exam - General 1994 Respiratory respiratory effort/rhythm Overall: normal rate 11/01/2017 None Full Exam - General 1994 Cardiovascular extremities Overall: no clubbing 11/01/2017 None Full Exam - General 1994 Cardiovascular auscultation of heart Overall: regular rate 11/01/2017 None Full Exam - General 1994 Cardiovascular auscultation of heart Overall: normal heart sounds 11/01/2017 None Full Exam - General 1994 Abdomen abdominal exam Overall: no tenderness 11/01/2017 None Full Exam - General 1994 Abdomen abdominal exam Overall: normal bowel sounds 11/01/2017 None Full Exam - General 1994 Neurologic deep tendon reflexes Overall: deep tendon reflexes intact 11/01/2017 None Full Exam - General 1994 Neurologic cranial nerves Overall: crainial nerves 2 - 12 grossly intact 11/01/2017 None Full Exam - General 1994 Psychiatric orientation/consciousness Overall: oriented to person, place and time 11/01/2017 None Full Exam - General 1994 Psychiatric mood and affect Overall: normal mood and affect 11/01/2017 None Full Exam - General 1994 Ears/Nose/Throat internal nose Sinus tenderness: right maxillary 11/01/2017 None Full Exam - General 1994 Ears/Nose/Throat internal nose Sinus tenderness: left maxillary 11/01/2017 None Full Exam - Orthopedics Constitutional general appearance Overall: well nourished 09/11/2017 None Full Exam - Orthopedics Constitutional general appearance Overall: well developed 09/11/2017 None Full Exam - Orthopedics Constitutional general appearance Overall: in no acute distress 09/11/2017 None Full Exam - Orthopedics Eyes conjunctiva/eyelids Overall: conjunctiva clear 09/11/2017 None Full Exam - Orthopedics Eyes conjunctiva/eyelids Overall: eyelids normal 09/11/2017 None Full Exam - Orthopedics Ears/Nose/Throat lips/teeth/gingiva Overall: benign lips 09/11/2017 None Full Exam - Orthopedics Ears/Nose/Throat oral cavity/pharynx/larynx Overall: oral mucosa clear 09/11/2017 None Full Exam - Orthopedics Respiratory respiratory effort/rhythm Overall: no retractions 09/11/2017 None Full Exam - Orthopedics Respiratory respiratory effort/rhythm Overall: normal rate 09/11/2017 None Full Exam - Orthopedics Psychiatric orientation/consciousness Overall: oriented to person, place and time 09/11/2017 None Full Exam - Orthopedics Psychiatric mood and affect Overall: normal mood and affect 09/11/2017 None Full Exam - Orthopedics Psychiatric appearance Overall: well-groomed, good eye contact 09/11/2017 None Full Exam - Orthopedics MS: head/neck insp & palp - H/N Overall: head atraumatic 09/11/2017 None Full Exam - Orthopedics MS: left upp er extremity insp & palp - LUE Elbow: joint swelling 09/11/2017 None Full Exam - Orthopedics MS: left upp er extremity insp & palp - LUE Elbow: joint redness 09/11/2017 None Full Exam - General 1994 Constitutional general appearance Hygiene/Attention to Grooming: good hygiene 08/27/2017 None Full Exam - General 1994 Eyes conjunctiva/eyelids Overall: conjunctiva clear 08/27/2017 None Full Exam - General 1994 Eyes conjunctiva/eyelids Overall: cornea clear 08/27/2017 None Full Exam - General 1994 Eyes conjunctiva/eyelids Overall: eyelids normal 08/27/2017 None Full Exam [...] 08/27/2017 elbow - dog bite - with m inimal erythema, and edema noted Full Exam - General 1994 Constitutional general appearance Development: well developed 12/05/2016 None Full Exam - General 1994 Constitutional general appearance Development: appears stated age 0512/05/2016 None Full Exam - General 1994 Constitutional general appearance Hygiene/Attention to Grooming: good hygiene 12/05/2016 None Full Exam - General 1994 Eyes conjunctiva/eyelids Overall: conjunctiva clear 12/05/2016 None Full Exam - General 1994 Eyes conjunctiva/eyelids Overall: cornea clear 12/05/2016 None Full Exam - General 1994 Eyes conjunctiva/eyelids Overall: eyelids normal 12/05/2016 None Full Exam [...] None Full Exam - General 1994 Eyes conjunctiva/eyelids Overall: conjunctiva clear 06/06/2016 None Full Exam - General 1994 Eyes conjunctiva/eyelids Overall: cornea clear 06/06/2016 None Full Exam - General 1994 Eyes conjunctiva/eyelids Overall: eyelids normal 06/06/2016 None Full Exam [...] Lips: erythema 06/06/2016 AND IRRITATION OF LEFT LO WER LIP - SLIGHTLY VALVERDE ON LEFT THAN [...] None Full Exam - General 1994 Eyes conjunctiva/eyelids Overall: conjunctiva clear 12/07/2015 None Full Exam - General 1994 Eyes conjunctiva/eyelids Overall: cornea clear 12/07/2015 None Full Exam - General 1994 Eyes conjunctiva/eyelids Overall: eyelids normal 12/07/2015 None Full Exam [...] None Full Exam - General 1994 Eyes conjunctiva/eyelids Overall: conjunctiva clear 06/29/2015 None Full Exam - General 1994 Eyes conjunctiva/eyelids Overall: cornea clear 06/29/2015 None Full Exam - General 1994 Eyes conjunctiva/eyelids Overall: eyelids normal 06/29/2015 None Full Exam [...] dentition 06/29/2015 None Full Exam - General 1995 Ears/Nose/Throat oral cavity/pharynx/larynx Overall: oral mucosa clear [...] None Full Exam - General 1994 Eyes conjunctiva/eyelids Overall: conjunctiva clear 12/31/2014 None Full Exam - General 1994 Eyes conjunctiva/eyelids Overall: cornea clear 12/31/2014 None Full Exam - General 1994 Eyes conjunctiva/eyelids Overall: eyelids normal 12/31/2014 None Full Exam [...] affect 12/31/2014 None Procedures Procedure Codes Date DESTRUCT PREMALG LESION CPT-4: 79725 04/01/2019 DESTRUCT PREMALG LES 2-14 CPT-4: 98366 04/01/2019 URINALYSIS NONAUTO W /O SCOPE CPT-4: 94615 10/02/2016 URINALYSIS NONAUTO W /O SCOPE CPT-4: 41577 09/27/2015 Vital Signs Date Vital 04/01/2019 Blood Pressure 1: 132/76 Code: 8480-6 BMI: 29.6 Code: 98587-0 Heart Rate 1: 85 bpm Height: 5'10" SpO2: 96% Weight: 206 lbs 01/08/2019 Blood Pressure 1: 148/68 Code: 8480-6 BMI: 29.1 Code: 95258-7 Heart Rate 1: 95 bpm Height: 5'10" SpO2: 98% Weight: 203 lbs 05/16/2018 Blood Pressure 1: 144/84 Code: 8480-6 BMI: 29.3 Code: 90653-6 Heart Rate 1: 71 bpm Height: 5'10" SpO2: 98% Weight: 204 lbs 03/11/2018 Blood Pressure 1: 126/74 Code: 8480-6 BMI: 29.3 Code: 83638-6 Heart Rate 1: 84 bpm Height: 5'10" SpO2: 97% Weight: 204 lbs 01/25/2018 Blood Pressure 1: 134/80 Code: 8480-6 BMI: 29.3 Code: 84745-5 Heart Rate 1: 86 bpm Height: 5'10" SpO2: 97% Weight: 204 lbs 11/01/2017 Blood Pressure 1: 130/80 Code: 8480-6 BMI: 28.6 Code: 59103-9 Heart Rate 1: 72 bpm Height: 5'10" SpO2: 98% Temperature: 36.5 (C ) / 97.7 (F) Weight: 199 lbs 09/11/2017 Blood Pressure 1: 128/80 Code: 8480-6 Heart Rate 1: 72 bpm Height: 5'10" SpO2: 99% Weight: 08/27/2017 Blood Pressure 1: 126/70 Code: 8480-6 BMI: 29.8 Code: 38920-6 Heart Rate 1: 107 bpm Height: 5'10" SpO2: 96% Weight: 208 lbs 12/05/2016 Blood Pressure 1: 140/78 Code: 8480-6 BMI: 28.6 Code: 49100-9 Heart Rate 1: 98 bpm Height: 5'10" SpO2: 96% Weight: 199 lbs 06/06/2016 Blood Pressure 1: 142/80 Code: 8480-6 BMI: 28.7 Code: 21322-4 Heart Rate 1: 95 bpm Height: 5'10" SpO2: 97% Weight: 200 lbs 12/07/2015 Blood Pressure 1: 132/78 Code: 8480-6 BMI: 28.6 Code: 07604-5 Heart Rate 1: 81 bpm Height: 5'10" SpO2: 97% Weight: 199 lbs 06/29/2015 Blood Pressure 1: 118/76 Code: 8480-6 BMI: 28.7 Code: 60536-9 Heart Rate 1: 98 bpm Height: 5'10" SpO2: 98% Weight: 200 lbs 12/31/2014 Blood Pressure 1: 132/72 Code: 8480-6 BMI: 28.6 Code: 57553-5 Heart Rate 1: 75 bpm Height: 5'10" SpO2: 95% Weight: 199 lbs Functional Status No Functional Status data History of Present Illness Symptom Name Status Resu lt Effective Date Notes Location right arm 04/01/2019 None Location in the left p ostauricular area 04/01/2019 None Onset and Resolution o ngoing 04/01/2019 None Triggers sun exposure 04/01/2019 None Severity mild 04/01/2019 None Frequency of Episodes increasing 04/01/2019 None Alleviating Factors rest 04/01/2019 None Pertinent Findings Den ies fever 04/01/2019 None Location on the left leg 01/08/2019 None Location on the right arm 01/08/2019 None sore throat Quality acute 05/16/2018 None sore throat Quality scra tchy 05/16/2018 None sore throat Onset and Resolution sudden in onset 05/16/2018 None skin lesion Quality scab bed 05/16/2018 None skin lesion Onset and Resolution ongoing 05/16/2018 None skin lesion Location on the right cheek 05/16/2018 (near the ear) skin lesion Onset of Symptom _ months ago 05/16/2018 None skin lesion Severity mild 05/16/2018 None skin lesion Frequency of Episodes increasing 05/16/2018 None skin lesion Triggers no known associated factors 05/16/2018 None sore throat Onset of Symptom _ days ago 05/16/2018 None sore throat Limitation on Activities does not limit oral intake 05/16/2018 None sore throat Frequency of Episodes unchanged 05/16/2018 None sore throat Triggers no known associated factors 05/16/2018 None skin lesion Onset and Resolution ongoing 03/11/2018 None skin lesion Severity mild 03/11/2018 None skin lesion Location on the forehead 03/11/2018 None skin lesion Pertinent Findings Denies fever 03/11/2018 None Hospital Follow Up _ [facility] er: kidney stone 01/25/2018 None Hospital Follow Up Pertinent Findings Denies fever 01/25/2018 None cough Quality acute 11/01/2017 None cough Quality intermitte nt 11/01/2017 None cough Onset and Resolution sudden in onset 11/01/2017 None cough Onset of Symptom 1 weeks ago 11/01/2017 None cough Frequency of Episodes daily 11/01/2017 None cough Quality worsening 11/01/2017 None cough Pertinent Findings fever 11/01/2017 None cough Pertinent Findings nasal congestion 11/01/2017 None cough Pertinent Findings lethargy 11/01/2017 None cough Pertinent Findings weight loss 11/01/2017 None cough Pertinent Findings post nasal drip 11/01/2017 None cough Significant Medical Conditions pulmonary disease 11/01/2017 None cough Triggers no known associated factors 11/01/2017 None hypertension Quality dana aleena hypertension 09/11/2017 None hypertension Onset and Resolution ongoing 09/11/2017 None hypertension Onset of Symptom during adulthood 09/11/2017 None hypertension Alleviating Factors medication 09/11/2017 None hypertension Pertinent Findings Denies dizziness 09/11/2017 None hypertension Pertinent Findings Denies dyspnea 09/11/2017 None hypertension Pertinent Findings Denies edema 09/11/2017 None elbow pain Location on t he left 09/11/2017 None elbow pain Quality acute 09/11/2017 None elbow pain Onset and Resolution sudden in onset 09/11/2017 None elbow pain Onset and Resolution ongoing 09/11/2017 None elbow pain Onset of Symptom 4 weeks ago 09/11/2017 None elbow pain Frequency of Episodes daily 09/11/2017 None elbow pain Mechanism of injury penetrating trauma 09/11/2017 (dog bite) elbow pain Alleviating Factors heat 09/11/2017 None elbow pain Pertinent Findings swelling 09/11/2017 None elbow pain Pertinent Findings pain with movement 09/11/2017 None hypertension Blood Pressure Values pt checking blood pressure - see scanned document 09/11/2017 --Patient brought in BP machine with aranza jin hypertension Onset and Resolution ongoing 08/27/2017 None [...] anxiety 08/27/2017 None Hospital Follow Up _ Ot er: dog bite 08/27/2017 None Hospital Follow Up [...] Denies edema 06/06/2016 None shoulder pain Location o n the right shoulder 06/06/2016 None shoulder pain Limitation on Activities does not limit activities 06/06/2016 None shoulder pain Pertinent Findings Denies limited range of motion 06/06/2016 None shoulder pain Pertinent Findings Denies loss of strength 06/06/2016 None hypertension Blood Pressure Values not checking blood pressure at home 06/06/2016 None shoulder pain Quality in termittent 06/06/2016 None hyperlipidemia Onset and Resolution gradual [...] Denies dyspnea 12/07/2015 None shoulder pain Location o n the right shoulder 12/07/2015 None shoulder pain Quality in termittent 12/07/2015 None shoulder pain Onset and Resolution [...] Factors medication 12/07/2015 None shoulder pain Quality im proving 12/07/2015 None hypertension Quality int ermittent 06/29/2015 None hypertension Blood Pressure Values patient checking blood pressure at home - did not bring in readings 06/29/2015 occassional home testing hypertension Pertinent Findings dizziness 06/29/2015 occ when standing up hypertension Pertinent Findings Denies dyspnea 06/29/2015 None shoulder pain Location o n the right shoulder 06/29/2015 None shoulder pain Onset and Resolution ongoing 06/29/2015 None shoulder pain Onset and Resolution waxing and waning 06/29/2015 None shoulder pain Quality in termittent 06/29/2015 None shoulder pain Limitation on Activities does not limit activities 06/29/2015 None shoulder pain Mechanism of injury _ 06/29/2015 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, jeremy g term wear and tear shoulder pain Pertinent Findings Denies limited range of motion 06/29/2015 None shoulder pain Pertinent Findings Denies loss of strength 06/29/2015 None hypertension Quality int ermittent 12/31/2014 None hypertension Blood Pressure Values patient checking blood pressure at home - did not bring in readings 12/31/2014 occassional home testing hypertension Pertinent Findings dizziness 12/31/2014 occ when standing up hypertension Pertinent Findings Denies dyspnea 12/31/2014 None hyperlipidemia Onset and Resolution ongoing 12/31/2014 None hyperlipidemia Quality s table 12/31/2014 None tinnitus Location on bot h sides 12/31/2014 None tinnitus Onset and Resolution ongoing 12/31/2014 None tinnitus Length of Episodes years 12/31/2014 he worked on the [employer] and has had ear damage from no hearing protection Advance Directives No Advance Directive data Encounters Encounter Performer Loca tion Codes Date EST. PATIENT, LEVEL III Diagnosis: Cellulitis of left lower limb[ICD10: L03.116] Diagnosis: Bitten or stung by nonvenomous insect and other nonvenomous arthropods, initial encounter[ICD10: W57.XXXA] [facility] CPT-4: 57566 01/08/2019 ([id number]) 94552 EST. P ATIENT, LEVEL III Diagnosis: Acute upper respiratory infection, unspecified[ICD10: J06.9] Diagnosis: Actinic keratosis[ICD10: L57.0] [facility] CPT- 4: 22442 05/16/2018 12447 EST. PATIENT, LEVEL III Diagnosis: Actinic keratosis[ICD10: L57.0] Diagnosis: Basal cell carcinoma of skin of other parts of face[ICD10: C44.319] [facility] CPT-4: 98130 03/11/2018 19001 EST. PATIENT, LEVEL III Diagnosis: Encounter for follow-up examination after completed treatment for conditions other than malignant neoplasm[ICD10: Z09] Kati Lane MD, [facility] CPT-4: 32752 01/25/2018 ([id number]) 72007 EST. P ATIENT, LEVEL III Diagnosis: Acute recurrent maxillary sinusitis[ICD10: J01.01] Diagnosis: Cough[ICD10: R05] Aydee Lane MD, [facility] CPT-4: 76158 11/01/2017 10740 EST. PATIENT, LEVEL III Diagnosis: Olecranon bursitis, left elbow[ICD10: M70.22] Kati Lane MD, [facility] CPT-4: 94681 09/11/2017 ([id number]) Miscellaneou s no charge Diagnosis: Essential (primary) hypertension[ICD10: I10] Vianney Lane MD, C CPT-4: 61901 09/03/2017 34878 EST. PATIENT, LEVEL IV Diagnosis: Essential (primary) hypertension[ICD10: I10] Diagnosis: Bitten by dog, initial encounter[ICD10: W54.0XXA] Kati Lane MD, [facility] CPT-4: 65096 08/27/2017 ([id number]) 57564 EST. 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 P ATIENT, LEVEL IV Diagnosis: Essential (primary) hypertension[ICD10: I10] Diagnosis: Mixed hyperlipidemia[ICD10: E78.2] Diagnosis: Personal history of other malignant neoplasm of bronchus and lung[ICD10: Z85.118] Diagnosis: Diseases of lips[ICD10: K13.0] Vianney Lane MD, [facility] CPT-4: 77652 06/06/2016 ([id number]) 17739 EST. P ATIENT, LEVEL IV Diagnosis: Essential (primary) hypertension[ICD10: I10] Diagnosis: Mixed hyperlipidemia[ICD10: E78.2] Diagnosis: Bicipital tendinitis, right shoulder[ICD10: M75.21] Vianney Lane MD[facility] LL C CPT-4: 93316 12/07/2015 ([id number]) 62983 EST. [facility] Diagnosis: Essential (primary) hypertension[ICD10: I10] Diagnosis: Pain in right shoulder[ICD10: M25.511] Vianney Lane MD, [facility] CPT-4: 44935 06/29/2015 ([id number]) OFFICE VISI T, NEW - LEVEL 4 Diagnosis: ESSENTIAL HYPERTENSION[ICD9: 401.9] Diagnosis: HYPERLIPIDEMIA[ICD9: 272.4] Vianney Lane MD, [facility] CPT-4: 30581 12/31/2014 Plan of Care Planned Activity Notes C odes Status Date Visit Plan: Actinic Keratosis - gissell ated with cryotherapy x 3, pt advised on how to appropriately care for the lesion. Call if not improved after thorough healing. 04/01/2019 Appointment: Aydee Gallardo WPtel: [address] [place] [address] (30 min) Complex 04/01/2019 Patient Education: Patient Medication Summary Completed 04/01/2019 Appointment: Kati Appiah WPtel: [address] [place] [address] (30 min) Complex 01/28/2019 Visit Plan: cellulitis, tick bite, spider bite - The patient was instructed in appropriate wound care. The patient was instructed to use the antibiotic ointment as per RX. The patient is to call for any change in s ymptoms, increase in size of the lesion, increase in pain, worsening redness, warmth, discharge. 01/08/2019 Appointment: Kati Appiah WPtel: [address] [place] [address] (30 min) Complex 01/08/2019 Patient Education: Patient Medication Summary Completed 01/08/2019 Visit Plan: URI - Pt advised to inc rease fluids, vitamin C. Discussed natural and expected course of this diagnosis and need to alert me if symptoms do not follow expected course, or if any worse. AK-cryotherapy today in the office 05/16/2018 Appointment: Aydee Gallardo WPtel: [address] [place], [place] [phone] [place] (15 min) Moderate 05/16/2018 Patient Education: Patient Medication Summary Completed 05/16/2018 Visit Plan: Basal Cell - will refer to Dr. Tan for removal - pt is to notify clinic with any acute changes, questions, or concerns. AK - cryotherapy to lesion - pt tolerated well - Pt was instructed to keep the area clean, wash with antibacterial soap, use triple antibiotic ointment, call if redness, pustular drainage, or any other acute concerns. 03/11/2018 Appointment: Kati Appiah WPtel: [address] [place], [place] [phone] (15 min) Moderate 03/11/2018 Patient Education: Patient Medication Summary Completed 03/11/2018 Visit Plan: ER follow up - symptoms resolved at this time - will call for ER report - pt is to notify clinic if symptoms do not improve, if they worsen, or with any changes, questions, or concerns. 01/25/2018 Appointment: Kati Appiah WPtel: [address] [place], [place] [phone] (15 min) Moderate 01/25/2018 Patient Education: Patient Medication Summary Completed 01/25/2018 Visit Plan: Sinusitis - Pt has acut e infection - pain in face, maxillary region, Pt informed to use decongestant, RX given to patient, sinus rinses also recommended. Call if symptoms do not show improvement. Cough- history lung ca-discussed chest xray if symptoms do not resolve 11/01/2017 Appointment: Aydee Gallardo WPtel: [address] [place], [place] [phone] [place] (15 min) Moderate 11/01/2017 Patient Education: Patient Medication Summary Completed 11/01/2017 Visit Plan: Bursitis - after dog bi te - will send RX - pt to do exercises as directed - stretching, anti-inflammatories to be started after 24 hours, and pt to use heat to the affected sites, pt to call if not improving. 09/11/2017 Appointment: Kati Appiah WPtel: [address] [place], [place] [phone] [place] (30 min) Complex 09/11/2017 Patient Education: Patient Medication Summary Completed 09/11/2017 Appointment: Nurse Visit 09/03/2017 Patient Education: Patient Medication Summary Completed 09/03/2017 Visit Plan: Hypertension - The tien ent has been counseled to cut back on [...] concerns. 08/27/2017 Visit Plan: Hypertension - The tien ent has been counseled to cut back on [...] acute concerns. 08/27/2017 [phone] [phone] (15 min) Moderate 08/27/2017 Patient Education: Patient Medication Summary Completed 08/27/2017 Visit Plan: Hypertension - well con trolled - continue with current medications, continue with [...] when available. 12/05/2016 Appointment: Aydee Gallardo WPtel: [phone] (30 min) Complex 12/05/2016 Patient Education: Patient Medication Summary Completed 12/05/2016 Appointment: Aydee Gallardo WPtel: [phone] (30 min) Complex 12/04/2016 Appointment: Lab Draw 10/02/2016 Patient Education: Patient Medication Summary Completed 10/02/2016 Referral: [id number] Patient informed. Referral info faxed. Completed 06/22/2016 Visit Plan: Hypertension - well con trolled - continue with current medications, continue with [...] pt 06/06/2016 [phone] [facility] (15 min) Moderate 06/06/2016 Patient Education: Patient Medication Summary Completed 06/06/2016 Patient Education: Hypertension Completed 06/06/2016 Care Plan: Referral Order SNOMED-CT : [id number] Pending 06/06/2016 Visit Plan: Hypertension - well con trolled - continue with current medications, continue with [...] not improved. 12/07/2015 App[facility]ment: [facility] [phone] [facility] (15 min) Moderate 12/07/2015 Patient Education: Patient Medication Summary Completed 12/07/2015 Appointment: Lab Draw 09/27/2015 Patient Education: Patient Medication Summary Completed 09/27/2015 Visit Plan: Hypertension - well con trolled - continue with current medications, continue with [...] Completed 06/29/2015 Visit Plan: Hypertension - well con trolled - continue with current medications, continue with [...] to medications. 12/31/2014 Appointment: [facility]ian[facility]Ptel[facility] [phone] [facility] [place] (S) New Patient 12/31/2014 Patient Education: Patient Medication Summary Completed 12/31/2014 Patient Education: Hypertension Completed 12/31/2014 Referral: [facility] [id number] [place] Referral Appointment Requested Instructions Comment Monitor your blood p ressure at home and record. Bring in your [...] to assure normal liver response to medications. appointment with Dr. Tan - 03/21 at 2PM. Basal Cell - will refer to Dr. Tan for removal - pt is to notify clinic with any acute changes, questions, or concerns. AK - cryotherapy to lesion - pt tolerated well - Pt was instructed to keep the area clean, wash with antibacterial soap, use triple antibiotic ointment, call if redness, pustular drainage, or any other acute concerns. . Bursitis - after d og bite - will send RX - pt to do exercises as directed - stretching, anti-inflammatories to be started after 24 hours, and pt to use heat to the affected sites, pt to call if not improving. . URI - Pt advised t o increase fluids, vitamin C. Discussed natural and expected course of this diagnosis and need to alert me if symptoms do not follow expected course, or if any worse. AK-cryotherapy today in the office . ER follow up - sym ptoms resolved at this time - will call for ER report - pt is to notify clinic if symptoms do not improve, if they worsen, or with any changes, questions, or concerns. . Hypertension - wel l controlled - continue with current medications, continue [...] order given to pt probiotic while on t he doxycycline - [employer] [facility], culturelle, or generic . Hypertension - [...] any other acute concerns. probiotic while on t he doxycycline - [facility] [employer] [facility], culturelle, or generic . Hypertension - [...] other acute concerns. two old goats - musc le rub from [employer] and home . Hypertension - well controlled - tati nue with current medications, continue with no added [...] to call if symptoms are not improved. FLONASE nasal spray . Sinusitis - Pt has acute infection - pain in face, maxillary region, Pt informed to use decongestant, RX given to patient, sinus rinses also recommended. Call if symptoms do not show improvement. Cough-history lung ca-discussed chest xray if symptoms do not resolve . Actinic Keratosis - treated with cryotherapy x 3, pt advised on how to appropriately care for the lesion. Call if not improved after thorough healing. . cellulitis, tick b ite, spider bite - The patient was instructed in appropriate wound care. The patient was instructed to use the antibiotic ointment as per RX. The patient is to call for any change in symptoms, increase in size of the lesion, increase in pain, worsening redness, warmth, discharge. . Hypertension - wel l controlled - continue with current medications, continue [...] break through pain symptoms. . Hypertension - wel l controlled - continue with current medications, continue [...]
--- OUTSIDE RECORDS SUMMARY | 2019-12-19 09:05 | XMS REPORT | CCD ---
Author Author Aniceto Lane Organization Vianney Lane MD, [facility] Address [address] [place] [address] Phone Care Team Providers Care Environmental Remediation Engineer Name Role Phone PP Unavailable CCM Unavailable Summary Purpose Interface Exchange Insurance Providers Payer name Policy type / Coverage type Covered democrat ID Effective Begin Date Effective End Date [place] [employer] Medicare Part B [id number] Unknown [facility] [employer] [facility] Medicare Part B [id number] Unknown Family history Father Diagnosis Age At Onset Cancer Unknown Mother Diagnosis Age At Onset Hypertension Unknown Hyperlipidemia Unknown Social History Social History Element Codes Description Effective Dates Marital status Unknown M arried Yelena 12/31/2014 Number of children Unknown 0 12/31/2014 Employment Unknown Retir ed 12/31/[address]: 3609542 Quit over 10 years ago 200012/31/[address]: 037062 Currently drinks alcohol 12/31/2014 Frequency of drinks SNOMED CT: 074997816 7 drinks per week 12/31/2014 Allergies, Adverse [...] Date Stop Date Sta tus Fill Instructions dapsone 100 mg tablet RxNorm: 244743 1 Tablet(s) PO daily 01/08/2019 01/14/2019 Inactive doxycycline hyclate 100 mg capsule RxNorm: 6510121 1 Capsule(s) PO BID 01/08/2019 01/17/2019 In active Coreg 3.125 mg tablet RxNorm: 647862 1 Tablet(s) PO BID 10/08/2018 04/05/2019 Active omeprazole 20 mg cap owen,delayed release RxNorm: 877595 Capsule(s) TAKE ONE C APSULE BY MOUTH ONCE DAILY 07/09/2018 No Stop Date Active lovastatin 40 mg tablet RxNorm: 514068 Tablet(s) TAKE ONE TABLET BY MOUTH ONCE DAILY 07/09/2018 07/03/2019 Ac tive omeprazole 20 mg cap owen,delayed release RxNorm: 599511 TAKE ONE CAPSULE BY M OUTH ONCE DAILY 06/10/2018 07/08/2018 Inactive lisinopril 10 mg-hyd rochlorothiazide 12.5 mg tablet RxNorm: 160552 1 Tablet(s) PO daily 04/01/2018 2019 Active Coreg 3.125 mg tablet RxNorm: 546230 1 Tablet(s) PO BID 04/01/2018 09/27/2018 Inactive lovastatin 40 mg tablet RxNorm: 664780 Tablet(s) TAKE ONE TABLET BY MOUTH ONCE DAILY 03/11/2018 07/08/2018 Inactive lovastatin 40 mg tablet RxNorm: 848095 TAKE ONE TABLET BY MOUTH ONCE DAILY 12/17/2017 03/10/2018 In active Keflex 500 mg capsule RxNorm: 313887 1 Capsule(s) PO TID 11/01/2017 11/07/2017 Inactive doxycycline hyclate 100 mg capsule RxNorm: 7788719 1 Capsule(s) PO BID 09/11/2017 09/17/2017 In active Coreg 3.125 mg tablet RxNorm: 387814 1 Tablet(s) PO BID 09/03/2017 03/31/2018 Inactive Coreg 3.125 mg tablet RxNorm: 590793 1 Tablet(s) PO BID 09/03/2017 09/02/2017 Inactive doxycycline hyclate 100 mg capsule RxNorm: 3443072 1 Capsule(s) PO BID 08/27/2017 09/02/2017 In active lovastatin 40 mg tablet RxNorm: 659782 1 Tablet(s) PO daily 08/08/2017 12/05/2017 Inactive omeprazole 20 mg cap owen,delayed release RxNorm: 428789 1 Capsule(s) PO daily 07/23/2017 06/09/2018 In active lisinopril 10 mg-hyd rochlorothiazide 12.5 mg tablet RxNorm: 520230 1 Tablet(s) PO daily 07/09/2017 03/31/2018 Inactive patient needs to call the office to raegan haynes fluorouracil 5 % top ical cream RxNorm: 504061 1 Gram(s) TOP BID x2 weeks ONLY 03/26/2017 04/08/2017 In active fluorouracil 5 % top ical cream RxNorm: 479834 1 Gram(s) TOP BID x2 weeks ONLY 03/26/2017 03/25/2017 In active Colcrys 0.6 mg tablet RxNorm: 747310 2 Tablet(s) PO UD 12/05/2016 No Stop Date Active 2 ta bs today then 1 tab daily x 5 days then prn gout lisinopril 10 mg-hyd rochlorothiazide 12.5 mg tablet RxNorm: 044501 1 Tablet(s) PO daily 10/12/2016 07/08/2017 Inactive Cipro 500 mg tablet RxNorm: 289436 1 Tablet(s) PO BID 10/02/2016 10/08/2016 Inactive Cipro 500 mg tablet RxNorm: 679406 1 Tablet(s) PO BID 10/02/2016 10/01/2016 Inactive lovastatin 40 mg tablet RxNorm: 384348 Tablet(s) PO 07/27/2016 08/07/2017 Inactive Cipro 500 mg tablet RxNorm: 773588 1 Tablet(s) PO BID 09/27/2015 09/26/2015 Inactive Cipro 500 mg tablet RxNorm: 300185 1 Tablet(s) PO BID 09/27/2015 10/03/2015 Inactive omeprazole 20 mg cap owen,delayed release RxNorm: 036139 1 Capsule(s) PO daily 07/06/2015 06/29/2016 In active lisinopril 10 mg-hyd rochlorothiazide 12.5 mg tablet RxNorm: 575714 1 Tablet(s) PO daily 07/06/2015 10/03/2015 Inactive lovastatin 40 mg tablet RxNorm: 507059 Tablet(s) PO 12/31/2014 07/26/2016 Inactive lisinopril 10 mg-hyd rochlorothiazide 12.5 mg tablet RxNorm: 876706 1 Tablet(s) PO daily 12/31/2014 03/30/2015 Inactive Ocuvite oral RxNorm: 109636 oral No Start Date Active aspirin 81 mg tablet ,delayed release RxNorm: 349420 1 Tablet(s) PO daily No Start Date Active Prilosec oral RxNorm: 7646 oral No Start Date 12/07/2015 Inactive lovastatin oral RxNorm: 413221 oral No Start Date 12/30/2014 Inactive Medication [...] 31.3 pg 08/27/2017 Cbc With Differential Ord2 Lynn% 12.7 % 08/27/2017 Cbc With Differential Ord2 [...] 1.75 K/ul 08/27/2017 Cbc With Differential Ord2 Lynn ABS# 0.8 K/ul 08/27/2017 Cbc With Differential Ord2 Eos ABS# 0.1 K/ul 08/27/2017 Cbc With Differential Ord2 Baso ABS# 0.0 K/ul 08/27/2017 Lipid Ord30 CHOL 170 mg/dL 08/27/2017 Lipid Ord30 HDL 52.0 mg/dl 08/27/2017 Lipid Ord30 TRIG 106 mg/dL 08/27/2017 Lipid Ord30 LDL 97 mg/dL 08/27/2017 Lipid Ord30 C/HDL 3.3 Ratio 08/27/2017 Total Psa Ord10 PSA 1.09 ng/mL 08/27/2017 Comp Metabolic Ibw469 NA 136 mEq/L 08/27/2017 Comp Metabolic Ufj004 K 4.2 mEq/L 08/27/2017 Comp Metabolic Ble356 CL 98 mEq/L 08/27/2017 Comp Metabolic Bud058 CO2 26.0 mEq/L 08/27/2017 Comp Metabolic Mtc890 AN ION GAP 16 08/27/2017 Comp Metabolic Wra241 GL UCOSE 119 mg/dL 08/27/2017 Comp Metabolic Evt342 Cr eat 1.2 mg/dL 08/27/2017 Comp Metabolic Kbj842 eG FR 67 ml/min/1.73m2 08/27 Comp Metabolic Yuf750 BUN 14 mg/dL 08/27/2017 Comp Metabolic Rgc209 B/ C Ratio 12.2 Ratio 08/27/2017 Comp Metabolic Fdd095 CA LCIUM 9.5 mg/dL 08/27/2017 Comp Metabolic Uvo270 AL K PHOS 60 U/L 08/27/2017 Comp Metabolic Hqg391 T(SGOT) 40 U/L 08/27/2017 Comp Metabolic Onx651 AL T(SGPT) 40 U/L 08/27/2017 Comp Metabolic Znn037 BI LI T 0.6 mg/dL 08/27/2017 Comp Metabolic Djm986 AL BUMIN 4.4 g/dL 08/27/2017 Comp Metabolic Vwg271 TP RO 6.9 g/dL 08/27/2017 Comp Metabolic Bac553 GL OB 2.5 g/dL 08/27/2017 Comp Metabolic Gql741 A/ G Ratio 1.7 Ratio 08/27/2017 Comp Metabolic Cau911 Os mo 274 mOsmo 08/27/2017 Comp Metabolic Und169 NA 137 mEq/L 01/23/2017 Comp Metabolic Pvs481 K 4.7 mEq/L 01/23/2017 Comp Metabolic Ozw280 CL 99 mEq/L 01/23/2017 Comp Metabolic Djn534 CO2 30.0 mEq/L 01/23/2017 Comp Metabolic Afr933 AN ION GAP 13 01/23/2017 Comp Metabolic Lzk546 GL UCOSE 92 mg/dL 01/23/2017 Comp Metabolic Dss194 Cr eat 1.0 mg/dL 01/23/2017 Comp Metabolic Tjo173 eG FR 77 ml/min/1.73m2 01/23 Comp Metabolic Ljz107 BUN 13 mg/dL 01/23/2017 Comp Metabolic Grx054 B/ C Ratio 12.7 Ratio 01/23/2017 Comp Metabolic Ygj690 CA LCIUM 9.3 mg/dL 01/23/2017 Comp Metabolic Xvl018 AL K PHOS 56 U/L 01/23/2017 Comp Metabolic Dua416 T(SGOT) 26 U/L 01/23/2017 Comp Metabolic Xgm759 AL T(SGPT) 25 U/L 01/23/2017 Comp Metabolic Wxt685 BI LI T 0.5 mg/dL 01/23/2017 Comp Metabolic Xzt428 AL BUMIN 4.2 g/dL 01/23/2017 Comp Metabolic Sep130 TP RO 6.9 g/dL 01/23/2017 Comp Metabolic Pna371 GL OB 2.7 g/dL 01/23/2017 Comp Metabolic Cyl880 A/ G Ratio 1.5 Ratio 01/23/2017 Comp Metabolic Npc123 Os mo 274 mOsmo 01/23/2017 Cbc With [...] 31.5 pg 12/05/2016 Cbc With Differential Ord2 Lynn% 13.0 % 12/05/2016 Cbc With Differential Ord2 [...] 1.65 K/ul 12/05/2016 Cbc With Differential Ord2 Lynn ABS# 1.1 K/ul 12/05/2016 Cbc With Differential Ord2 Eos ABS# 0.2 K/ul 12/05/2016 Cbc With Differential Ord2 Baso ABS# 0.0 K/ul 12/05/2016 Uric Acid Ord77 Uric A 6.5 mg/dL 12/05/2016 Comp Metabolic Wop356 NA 136 mEq/L 12/05/2016 Comp Metabolic Ayf472 K 4.4 mEq/L 12/05/2016 Comp Metabolic Wkl628 CL 99 mEq/L 12/05/2016 Comp Metabolic Brm672 CO2 28.0 mEq/L 12/05/2016 Comp Metabolic Pbv113 AN ION GAP 13 12/05/2016 Comp Metabolic Led385 GL UCOSE 84 mg/dL 12/05/2016 Comp Metabolic Xib691 Cr eat 1.0 mg/dL 12/05/2016 Comp Metabolic Ake361 eG FR 84 ml/min/1.73m2 12/05 Comp Metabolic Uie394 BUN 14 mg/dL 12/05/2016 Comp Metabolic Zkl702 B/ C Ratio 14.7 Ratio 12/05/2016 Comp Metabolic Hre892 CA LCIUM 9.0 mg/dL 12/05/2016 Comp Metabolic Yeq905 AL K PHOS 55 U/L 12/05/2016 Comp Metabolic Kks324 T(SGOT) 26 U/L 12/05/2016 Comp Metabolic Mlq121 AL T(SGPT) 25 U/L 12/05/2016 Comp Metabolic Jvz334 BI LI T 0.4 mg/dL 12/05/2016 Comp Metabolic Hjf810 AL BUMIN 4.1 g/dL 12/05/2016 Comp Metabolic Tow107 TP RO 6.8 g/dL 12/05/2016 Comp Metabolic Ngs030 GL OB 2.7 g/dL 12/05/2016 Comp Metabolic Kyd925 A/ G Ratio 1.5 Ratio 12/05/2016 Comp Metabolic Fdq435 Os mo 272 mOsmo 12/05/2016 Comp Metabolic Btr651 NA 136 mEq/L 11/13/2016 Comp Metabolic Nil582 K 4.2 mEq/L 11/13/2016 Comp Metabolic Eyo817 CL 98 mEq/L 11/13/2016 Comp Metabolic Pgr011 CO2 29.0 mEq/L 11/13/2016 Comp Metabolic Cwf797 AN ION GAP 13 11/13/2016 Comp Metabolic Kgh389 GL UCOSE 94 mg/dL 11/13/2016 Comp Metabolic Mbd190 Cr eat 1.0 mg/dL 11/13/2016 Comp Metabolic Fwb052 eG FR 78 ml/min/1.73m2 11/13 Comp Metabolic Uqm799 BUN 12 mg/dL 11/13/2016 Comp Metabolic Qqh127 B/ C Ratio 11.9 Ratio 11/13/2016 Comp Metabolic Xwr462 CA LCIUM 9.4 mg/dL 11/13/2016 Comp Metabolic Eis980 AL K PHOS 56 U/L 11/13/2016 Comp Metabolic Wgc463 T(SGOT) 25 U/L 11/13/2016 Comp Metabolic Hkc775 AL T(SGPT) 25 U/L 11/13/2016 Comp Metabolic Azs898 BI LI T 0.6 mg/dL 11/13/2016 Comp Metabolic Eey323 AL BUMIN 4.2 g/dL 11/13/2016 Comp Metabolic Qde301 TP RO 6.7 g/dL 11/13/2016 Comp Metabolic Ymb751 GL OB 2.5 g/dL 11/13/2016 Comp Metabolic Xoe562 A/ G Ratio 1.6 Ratio 11/13/2016 Comp Metabolic Ouq100 Os mo 271 mOsmo 11/13/2016 Urine Culture [...] 31.2 pg 06/12/2016 Cbc With Differential Ord2 Lynn% 15.1 % 06/12/2016 Cbc With Differential Ord2 [...] 1.66 K/ul 06/12/2016 Cbc With Differential Ord2 Lynn ABS# 1.1 K/ul 06/12/2016 Cbc With Differential Ord2 Eos ABS# 0.2 K/ul 06/12/2016 Cbc With Differential Ord2 Baso ABS# 0.1 K/ul 06/12/2016 Comp Metabolic Yoq118 NA 132 mEq/L 06/12/2016 Comp Metabolic Lil354 K 4.2 mEq/L 06/12/2016 Comp Metabolic Hfa626 CL 97 mEq/L 06/12/2016 Comp Metabolic Lje441 CO2 28.0 mEq/L 06/12/2016 Comp Metabolic Ogk680 AN ION GAP 11 06/12/2016 Comp Metabolic Gij336 GL UCOSE 98 mg/dL 06/12/2016 Comp Metabolic Zft213 Cr eat 1.0 mg/dL 06/12/2016 Comp Metabolic Pgh140 eG FR 78 ml/min/1.73m2 06/12 Comp Metabolic Jnw098 BUN 12 mg/dL 06/12/2016 Comp Metabolic Heo006 B/ C Ratio 11.9 Ratio 06/12/2016 Comp Metabolic Pbm640 CA LCIUM 9.2 mg/dL 06/12/2016 Comp Metabolic Etp982 AL K PHOS 58 U/L 06/12/2016 Comp Metabolic Hba811 T(SGOT) 23 U/L 06/12/2016 Comp Metabolic Lme857 AL T(SGPT) 22 U/L 06/12/2016 Comp Metabolic Yrt394 BI LI T 0.6 mg/dL 06/12/2016 Comp Metabolic Dqn341 AL BUMIN 4.2 g/dL 06/12/2016 Comp Metabolic Ipc415 TP RO 6.8 g/dL 06/12/2016 Comp Metabolic Bqc789 GL OB 2.6 g/dL 06/12/2016 Comp Metabolic Msb455 A/ G Ratio 1.6 Ratio 06/12/2016 Comp Metabolic Qac579 Os mo 264 mOsmo 06/12/2016 Tsh Ord6 hTSH II 2.41 uIU/mL 12/21/2015 Comp Metabolic Hvq237 NA 135 mEq/L 12/21/2015 Comp Metabolic Izt724 K 4.2 mEq/L 12/21/2015 Comp Metabolic Qaa290 CL 98 mEq/L 12/21/2015 Comp Metabolic Hnr925 CO2 29.0 mEq/L 12/21/2015 Comp Metabolic Iyx256 AN ION GAP 12 12/21/2015 Comp Metabolic Zbp724 GL UCOSE 99 mg/dL 12/21/2015 Comp Metabolic Azr388 Cr eat 1.1 mg/dL 12/21/2015 Comp Metabolic Klb627 eG FR 70 ml/min/1.73m2 12/20 Comp Metabolic Qns924 BUN 17 mg/dL 12/21/2015 Comp Metabolic Axb576 B/ C Ratio 15.2 Ratio 12/21/2015 Comp Metabolic Vgw019 CA LCIUM 9.1 mg/dL 12/21/2015 Comp Metabolic Gun815 AL K PHOS 60 U/L 12/21/2015 Comp Metabolic Qyh357 T(SGOT) 23 U/L 12/21/2015 Comp Metabolic Szj544 AL T(SGPT) 22 U/L 12/21/2015 Comp Metabolic Sxx644 BI LI T 0.6 mg/dL 12/21/2015 Comp Metabolic Wiu341 AL BUMIN 4.3 g/dL 12/21/2015 Comp Metabolic Gvt895 TP RO 7.0 g/dL 12/21/2015 Comp Metabolic Pdk020 GL OB 2.8 g/dL 12/21/2015 Comp Metabolic Fhh272 A/ G Ratio 1.5 Ratio 12/21/2015 Comp Metabolic Kzc535 Os mo 272 mOsmo 12/21/2015 Cbc With [...] 30.5 pg 12/21/2015 Cbc With Differential Ord2 Lynn% 15.3 % 12/21/2015 Cbc With Differential Ord2 [...] 1.58 K/ul 12/21/2015 Cbc With Differential Ord2 Lynn ABS# 1.0 K/ul 12/21/2015 Cbc With Differential [...] inspection of skin Location: face 05/16/2018 right [facility] Full Exam - Dermatology Constitutional general appearance [...] palp - head/face Location: on the right [facility] 03/11/2018 None Full Exam - Dermatology Integument [...] Procedure Codes Date DESTRUCT PREMALG LESION CPT-4: 50983 04/01/2019 DESTRUCT PREMALG LES 2-14 CPT-4: 55994 04/01/2019 URINALYSIS NONAUTO W /O SCOPE CPT-4: 66912 10/02/2016 URINALYSIS NONAUTO W /O SCOPE CPT-4: 40301 09/27/2015 Vital Signs Date Vital 04/01/2019 Blood Pressure 1: 132/76 Code: 8480-6 BMI: 29.6 Code: 89833-9 Heart Rate 1: 85 bpm Height: 5'10" SpO2: 96% Weight: 206 lbs 01/08/2019 Blood Pressure 1: 148/68 Code: 8480-6 BMI: 29.1 Code: 85529-8 Heart Rate 1: 95 bpm Height: 5'10" SpO2: 98% Weight: 203 lbs 05/16/2018 Blood Pressure 1: 144/84 Code: 8480-6 BMI: 29.3 Code: 53217-3 Heart Rate 1: 71 bpm Height: 5'10" SpO2: 98% Weight: 204 lbs 03/11/2018 Blood Pressure 1: 126/74 Code: 8480-6 BMI: 29.3 Code: 67761-1 Heart Rate 1: 84 bpm Height: 5'10" SpO2: 97% Weight: 204 lbs 01/25/2018 Blood Pressure 1: 134/80 Code: 8480-6 BMI: 29.3 Code: 29190-9 Heart Rate 1: 86 bpm Height: 5'10" SpO2: 97% Weight: 204 lbs 11/01/2017 Blood Pressure 1: 130/80 Code: 8480-6 BMI: 28.6 Code: 09649-6 Heart Rate 1: 72 bpm Height: 5'10" SpO2: 98% Temperature: 36.5 (C ) / 97.7 (F) Weight: 199 lbs 09/11/2017 Blood Pressure 1: 128/80 Code: 8480-6 Heart Rate 1: 72 bpm Height: 5'10" SpO2: 99% Weight: 08/27/2017 Blood Pressure 1: 126/70 Code: 8480-6 BMI: 29.8 Code: 66656-0 Heart Rate 1: 107 bpm Height: 5'10" SpO2: 96% Weight: 208 lbs 12/05/2016 Blood Pressure 1: 140/78 Code: 8480-6 BMI: 28.6 Code: 95722-2 Heart Rate 1: 98 bpm Height: 5'10" SpO2: 96% Weight: 199 lbs 06/06/2016 Blood Pressure 1: 142/80 Code: 8480-6 BMI: 28.7 Code: 86035-2 Heart Rate 1: 95 bpm Height: 5'10" SpO2: 97% Weight: 200 lbs 12/07/2015 Blood Pressure 1: 132/78 Code: 8480-6 BMI: 28.6 Code: 07640-3 Heart Rate 1: 81 bpm Height: 5'10" SpO2: 97% Weight: 199 lbs 06/29/2015 Blood Pressure 1: 118/76 Code: 8480-6 BMI: 28.7 Code: 50074-7 Heart Rate 1: 98 bpm Height: 5'10" SpO2: 98% Weight: 200 lbs 12/31/2014 Blood Pressure 1: 132/72 Code: 8480-6 BMI: 28.6 Code: 97002-7 Heart Rate 1: 75 bpm Height: 5'10" [...] fever 03/11/2018 None Hospital Follow Up _ Ot er: kidney stone 01/25/2018 None Hospital Follow [...] anxiety 08/27/2017 None Hospital Follow Up _ Oth er: dog bite 08/27/2017 None Hospital Follow [...] Episodes years 12/31/2014 he worked on the [employer] and has had ear damage from no hearing protection Advance Directives No Advance Directive data Encounters Encounter Performer Loca tion Codes Date EST. PATIENT, LEVEL III Diagnosis: Cellulitis of left lower limb[ICD10: L03.116] Diagnosis: Bitten or stung by nonvenomous insect and other nonvenomous arthropods, initial encounter[ICD10: W57.XXXA] [facility] CPT-4: 77593 01/08/2019 ([id number] 71485 EST. P ATIENT, LEVEL III Diagnosis: Acute upper respiratory infection, unspecified[ICD10: J06.9] Diagnosis: Actinic keratosis[ICD10: L57.0] Aydee Lane MD, [facility] CPT- 4: 74085 05/16/2018 [id number] EST. PATIENT, LEVEL III Diagnosis: Actinic keratosis[ICD10: L57.0] Diagnosis: Basal cell carcinoma of skin of other parts of face[ICD10: C44.319] [facility] CPT-4: 56649 03/11/2018 [id number] EST. PATIENT, LEVEL III Diagnosis: Encounter for follow-up examination after completed treatment for conditions other than malignant neoplasm[ICD10: Z09] [facility] CPT-4: 38306 01/25/2018 ([id number] EST. P ATIENT, LEVEL III Diagnosis: Acute recurrent maxillary sinusitis[ICD10: J01.01] Diagnosis: Cough[ICD10: R05] Aydee Lane MD, [facility] CPT-4: 75472 11/01/2017 [id number] EST. PATIENT, LEVEL III Diagnosis: Olecranon bursitis, left elbow[ICD10: M70.22] Kati Lane MD, [facility] CPT-4: 17583 09/11/2017 ([id number]) Miscellaneou s no charge Diagnosis: Essential (primary) hypertension[ICD10: I10] Vianney Lane [facility] CPT-4: 66656 09/03/2017 [id number] EST. PATIENT, LEVEL IV Diagnosis: Essential (primary) hypertension[ICD10: I10] Diagnosis: Bitten by dog, initial encounter[ICD10: W54.0XXA] Kati Lane MD, [facility] CPT-4: 73321 08/27/2017 ([id number]) 97252 EST. P ATIENT, LEVEL III Diagnosis: Essential (primary) hypertension[ICD10: I10] Diagnosis: Idiopathic gout, left ankle and foot[ICD10: M10.072] Aydee Lane MD, [facility] CPT-4: 55012 12/05/2016 ([id number]) 68553 EST. P ATIENT, LEVEL IV Diagnosis: Essential (primary) hypertension[ICD10: I10] Diagnosis: Mixed hyperlipidemia[ICD10: E78.2] Diagnosis: Personal history of other malignant neoplasm of bronchus and lung[ICD10: Z85.118] Diagnosis: Diseases of lips[ICD10: K13.0] Vianney Lane MD, [facility] CPT-4: 85172 06/06/2016 ([id number]) 46448 EST. P ATIENT, LEVEL IV Diagnosis: Essential (primary) hypertension[ICD10: I10] Diagnosis: Mixed hyperlipidemia[ICD10: E78.2] Diagnosis: Bicipital tendinitis, right shoulder[ICD10: M75.21] Vianney Lane [facility] CPT-4: 08223 12/07/2015 ([id number]) 62161 EST. P ATIENT, LEVEL IV Diagnosis: Essential (primary) hypertension[ICD10: I10] Diagnosis: Pain in right shoulder[ICD10: M25.511] [facility] CPT-4: 59501 06/29/2015 ([id number]) OFFICE VISI T [facility] - LEVEL 4 Diagnosis: ESSENTIAL HYPERTENSION[ICD9: 401.9] Diagnosis: HYPERLIPIDEMIA[ICD9: 272.4] [facility] CPT-4: 18828 12/31/2014 Plan of Care Planned Activity Notes C odes Status Date Visit Plan: Actinic Keratosis - gissell ated with cryotherapy x 3, pt advised on how to appropriately care for the lesion. Call if not improved after thorough healing. 04/01/2019 Patient Education: Patient Medication Summary Completed 04/01/2019 Appointment: Kati Appiah WPtel: [address] [place] [address] (30 min) Complex 01/28/2019 Visit Plan: cellulitis, tick bite, spider bite - The patient was instructed in appropriate wound care. The patient was instructed to use the antibiotic ointment as per RX. The patient is to call for any change in s ymptoms, increase in size of the lesion, increase in pain, worsening redness, warmth, discharge. 01/08/2019 Appointment: Kati Appiah WPtel: [address] [place], [place] [phone] (30 min) Complex 01/08/2019 Patient Education: Patient Medication Summary Completed 01/08/2019 Visit Plan: URI - Pt advised to inc rease fluids, vitamin C. Discussed natural and expected course of this diagnosis and need to alert me if symptoms do not follow expected course, or if any worse. AK-cryotherapy today in the office 05/16/2018 Appointment: Aydee Gallardo WPtel: [address] [place] [phone] [place] (15 min) Moderate 05/16/2018 Patient Education: [...] acute concerns. 03/11/2018 Appointment: Kati Appiah WPtel: [place] (15 min) Moderate 03/11/2018 Patient Education: Patient Medication Summary Completed 03/11/2018 Visit Plan: ER follow up - symptoms resolved at this time - will call for ER report - pt is to notify clinic if symptoms do not improve, if they worsen, or with any changes, questions, or concerns. 01/25/2018 Appointment: Kati Appiah WPtel: [place] (15 min) Moderate 01/25/2018 Patient Education: Patient Medication Summary Completed 01/25/2018 Visit Plan: Sinusitis - Pt has acut e infection - pain in face, maxillary region, Pt informed to use decongestant, RX given to patient, sinus rinses also recommended. Call if symptoms do not show improvement. Cough- history lung ca-discussed chest xray if symptoms do not resolve 11/01/2017 Appointment: Aydee Gallardo WPtel: [phone] [place] (15 min) Moderate 11/01/2017 Patient Education: Patient Medication Summary Completed 11/01/2017 Visit Plan: Bursitis - after dog bi te - will send RX - pt to do exercises as directed - stretching, anti-inflammatories to be started after 24 hours, and pt to use heat to the affected sites, pt to call if not improving. 09/11/2017 Appointment: Kati Appiah WPtel: [place] [place] (30 min) Complex 09/11/2017 Patient Education: [...] acute concerns. 08/27/2017 Appointment[phone] (15 min) Moderate 08/27/2017 Patient Education: Patient Medication Summary Completed 08/27/2017 Visit Plan: Hypertension - augustus lopez - continue with current medications, continue with [...] when available. 12/05/2016 Appointment: Aydee Gallardo WPtel: [phone] [place] (30 min) Complex 12/05/2016 Patient Education: Patient Medication Summary Completed 12/05/2016 Appointment: Aydee Gallardo WPtel: [phone] [phone] (30 min) Complex 12/04/2016 Appointment: Lab Draw 10/02/2016 Patient Education: Patient Medication Summary Completed 10/02/2016 [facility] [facility] informed. Referral info faxed. Completed 06/22/2016 [...] to pt 06/06/2016 Appointment: Vianney Lane WPtel: [address] [place], [place] [address] (15 min) Moderate 06/06/2016 Patient Education: Patient Medication Summary Completed 06/06/2016 Patient Education: Hypertension Completed 06/06/2016 Care Plan: Referral Order SNOMED-CT : [id number] Pending 06/06/2016 Visit Plan: Hypertension - well [...] improved. 12/07/2015 Appointment: Vianney Lane WPtel: [phone] [facility] (15 min) Moderate 12/07/2015 Patient Education: Patient [...] medications. 12/31/2014 Appointment: Vianney Lane WPtel: [phone] [facility] [place] (S) New Patient 12/31/2014 Patient Education: Patient Medication Summary Completed 12/31/2014 Patient Education: Hypertension Completed 12/31/2014 Referral: Austin Li [address] Referral Appointment Requested Instructions Comment Monitor your [...] while on t he doxycycline - portillo colon health, culturelle, or generic . Hypertension - [...] while on t he doxycycline - portillo colon health, culturelle, or generic . Hypertension - [...] old goats - musc le rub from [employer] and home . Hypertension - well controlled [...]
--- OUTSIDE RECORDS SUMMARY | 2019-12-19 09:05 | XMS REPORT | CCD ---
Author Author Aniceto Lane Organization Vianney Lane MD, [facility] Address [address] [place] [address] Phone Care Team Providers Care Application Development Consultant Name Role Phone PP Unavailable CCM Unavailable Summary Purpose Interface Exchange Insurance Providers Payer name Policy type / Coverage type Covered green party ID Effective Begin Date Effective End Date [place] [employer] Medicare Part B [id number] Unknown [facility] [employer] [facility] [employer] Medicare Part B [id number] Unknown Family history Father Diagnosis Age At Onset Cancer Unknown Mother Diagnosis Age At Onset Hypertension Unknown Hyperlipidemia Unknown Social History Social History Element Codes Description Effective Dates Marital status Unknown M arried Yelena 12/31/2014 Number of children Unknown 0 12/31/2014 Employment Unknown Retir ed 12/31/[address]: 2650542 Quit over 10 years ago 200012/31/[address]: 057912 Currently drinks alcohol 12/31/2014 Frequency of drinks SNOMED CT: 418789123 7 drinks per week 12/31/2014 Allergies, Adverse [...] Fill Instructions dapsone 100 mg tablet RxNorm: 188550 1 Tablet(s) PO daily 01/08/2019 01/14/2019 Inactive doxycycline hyclate 100 mg capsule RxNorm: 9230705 1 Capsule(s) PO BID 01/08/2019 01/17/2019 In active Coreg 3.125 mg tablet RxNorm: 036243 1 Tablet(s) PO BID 10/08/2018 04/05/2019 Active omeprazole 20 mg cap owen,delayed release RxNorm: 926311 Capsule(s) TAKE ONE C APSULE BY MOUTH ONCE DAILY 07/09/2018 No Stop Date Active lovastatin 40 mg tablet RxNorm: 716590 Tablet(s) TAKE ONE TABLET BY MOUTH ONCE DAILY 07/09/2018 07/03/2019 Ac tive omeprazole 20 mg cap owen,delayed release RxNorm: 402139 TAKE ONE CAPSULE BY M OUTH ONCE DAILY 06/10/2018 07/08/2018 Inactive lisinopril 10 mg-hyd rochlorothiazide 12.5 mg tablet RxNorm: 327889 1 Tablet(s) PO daily 04/01/2018 2019 Active Coreg 3.125 mg tablet RxNorm: 860075 1 Tablet(s) PO BID 04/01/2018 09/27/2018 Inactive lovastatin 40 mg tablet RxNorm: 336142 Tablet(s) TAKE ONE TABLET BY MOUTH ONCE DAILY 03/11/2018 07/08/2018 Inactive lovastatin 40 mg tablet RxNorm: 553608 TAKE ONE TABLET BY MOUTH ONCE DAILY 12/17/2017 03/10/2018 In active Keflex 500 mg capsule RxNorm: 619528 1 Capsule(s) PO TID 11/01/2017 11/07/2017 Inactive doxycycline hyclate 100 mg capsule RxNorm: 8342161 1 Capsule(s) PO BID 09/11/2017 09/17/2017 In active Coreg 3.125 mg tablet RxNorm: 127984 1 Tablet(s) PO BID 09/03/2017 03/31/2018 Inactive Coreg 3.125 mg tablet RxNorm: 822193 1 Tablet(s) PO BID 09/03/2017 09/02/2017 Inactive doxycycline hyclate 100 mg capsule RxNorm: 9316110 1 Capsule(s) PO BID 08/27/2017 09/02/2017 In active lovastatin 40 mg tablet RxNorm: 458458 1 Tablet(s) PO daily 08/08/2017 12/05/2017 Inactive omeprazole 20 mg cap owen,delayed release RxNorm: 245309 1 Capsule(s) PO daily 07/23/2017 06/09/2018 In active lisinopril 10 mg-hyd rochlorothiazide 12.5 mg tablet RxNorm: 337930 1 Tablet(s) PO daily 07/09/2017 03/31/2018 Inactive patient needs to call the office to raegan haynes fluorouracil 5 % top ical cream RxNorm: 205123 1 Gram(s) TOP BID x2 weeks ONLY 03/26/2017 04/08/2017 In active fluorouracil 5 % top ical cream RxNorm: 361882 1 Gram(s) TOP BID x2 weeks ONLY 03/26/2017 03/25/2017 In active Colcrys 0.6 mg tablet RxNorm: 049362 2 Tablet(s) PO UD 12/05/2016 No Stop Date Active 2 ta bs today then 1 tab daily x 5 days then prn gout lisinopril 10 mg-hyd rochlorothiazide 12.5 mg tablet RxNorm: 735769 1 Tablet(s) PO daily 10/12/2016 07/08/2017 Inactive Cipro 500 mg tablet RxNorm: 627427 1 Tablet(s) PO BID 10/02/2016 10/08/2016 Inactive Cipro 500 mg tablet RxNorm: 118841 1 Tablet(s) PO BID 10/02/2016 10/01/2016 Inactive lovastatin 40 mg tablet RxNorm: 851221 Tablet(s) PO 07/27/2016 08/07/2017 Inactive Cipro 500 mg tablet RxNorm: 539419 1 Tablet(s) PO BID 09/27/2015 09/26/2015 Inactive Cipro 500 mg tablet RxNorm: 954128 1 Tablet(s) PO BID 09/27/2015 10/03/2015 Inactive omeprazole 20 mg cap owen,delayed release RxNorm: 031270 1 Capsule(s) PO daily 07/06/2015 06/29/2016 In active lisinopril 10 mg-hyd rochlorothiazide 12.5 mg tablet RxNorm: 712109 1 Tablet(s) PO daily 07/06/2015 10/03/2015 Inactive lovastatin 40 mg tablet RxNorm: 470740 Tablet(s) PO 12/31/2014 07/26/2016 Inactive lisinopril 10 mg-hyd rochlorothiazide 12.5 mg tablet RxNorm: 893466 1 Tablet(s) PO daily 12/31/2014 03/30/2015 Inactive Ocuvite oral RxNorm: 459378 oral No Start Date Active aspirin 81 mg tablet ,delayed release RxNorm: 152880 1 Tablet(s) PO daily No Start Date Active Prilosec oral RxNorm: 7646 oral No Start Date 12/07/2015 Inactive lovastatin oral RxNorm: 934664 oral No Start Date 12/30/2014 Inactive Medication [...] 31.3 pg 08/27/2017 Cbc With Differential Ord2 Loving% 12.7 % 08/27/2017 Cbc With Differential Ord2 [...] 1.75 K/ul 08/27/2017 Cbc With Differential Ord2 Loving ABS# 0.8 K/ul 08/27/2017 Cbc With Differential Ord2 Eos ABS# 0.1 K/ul 08/27/2017 Cbc With Differential Ord2 Baso ABS# 0.0 K/ul 08/27/2017 Lipid Ord30 CHOL 170 mg/dL 08/27/2017 Lipid Ord30 HDL 52.0 mg/dl 08/27/2017 Lipid Ord30 TRIG 106 mg/dL 08/27/2017 Lipid Ord30 LDL 97 mg/dL 08/27/2017 Lipid Ord30 C/HDL 3.3 Ratio 08/27/2017 Total Psa Ord10 PSA 1.09 ng/mL 08/27/2017 Comp Metabolic Vbf530 NA 136 mEq/L 08/27/2017 Comp Metabolic Fsj702 K 4.2 mEq/L 08/27/2017 Comp Metabolic Dnw078 CL 98 mEq/L 08/27/2017 Comp Metabolic Dre689 CO2 26.0 mEq/L 08/27/2017 Comp Metabolic Tjy366 AN ION GAP 16 08/27/2017 Comp Metabolic Ppw737 GL UCOSE 119 mg/dL 08/27/2017 Comp Metabolic Tal568 Cr eat 1.2 mg/dL 08/27/2017 Comp Metabolic Xme262 eG FR 67 ml/min/1.73m2 08/27 Comp Metabolic Kpb665 BUN 14 mg/dL 08/27/2017 Comp Metabolic Ojw084 B/ C Ratio 12.2 Ratio 08/27/2017 Comp Metabolic Jff343 CA LCIUM 9.5 mg/dL 08/27/2017 Comp Metabolic Ojz253 AL K PHOS 60 U/L 08/27/2017 Comp Metabolic Rfo159 T(SGOT) 40 U/L 08/27/2017 Comp Metabolic Adj519 AL T(SGPT) 40 U/L 08/27/2017 Comp Metabolic Ayw152 BI LI T 0.6 mg/dL 08/27/2017 Comp Metabolic Kgz037 AL BUMIN 4.4 g/dL 08/27/2017 Comp Metabolic Tzn957 TP RO 6.9 g/dL 08/27/2017 Comp Metabolic Viy038 GL OB 2.5 g/dL 08/27/2017 Comp Metabolic Bpx654 A/ G Ratio 1.7 Ratio 08/27/2017 Comp Metabolic Shb485 Os mo 274 mOsmo 08/27/2017 Comp Metabolic Ifj638 NA 137 mEq/L 01/23/2017 Comp Metabolic Alt265 K 4.7 mEq/L 01/23/2017 Comp Metabolic Amk557 CL 99 mEq/L 01/23/2017 Comp Metabolic Iuv319 CO2 30.0 mEq/L 01/23/2017 Comp Metabolic Tfz004 AN ION GAP 13 01/23/2017 Comp Metabolic Fdx524 GL UCOSE 92 mg/dL 01/23/2017 Comp Metabolic Ksf843 Cr eat 1.0 mg/dL 01/23/2017 Comp Metabolic Pta999 eG FR 77 ml/min/1.73m2 01/23 Comp Metabolic Gtr396 BUN 13 mg/dL 01/23/2017 Comp Metabolic Cxb360 B/ C Ratio 12.7 Ratio 01/23/2017 Comp Metabolic Hvf403 CA LCIUM 9.3 mg/dL 01/23/2017 Comp Metabolic Zrx970 AL K PHOS 56 U/L 01/23/2017 Comp Metabolic Rjr956 T(SGOT) 26 U/L 01/23/2017 Comp Metabolic Rjc420 AL T(SGPT) 25 U/L 01/23/2017 Comp Metabolic Ybs805 BI LI T 0.5 mg/dL 01/23/2017 Comp Metabolic Spa455 AL BUMIN 4.2 g/dL 01/23/2017 Comp Metabolic Fof222 TP RO 6.9 g/dL 01/23/2017 Comp Metabolic Yip640 GL OB 2.7 g/dL 01/23/2017 Comp Metabolic Ata515 A/ G Ratio 1.5 Ratio 01/23/2017 Comp Metabolic Jar791 Os mo 274 mOsmo 01/23/2017 Cbc With [...] 31.5 pg 12/05/2016 Cbc With Differential Ord2 Loving% 13.0 % 12/05/2016 Cbc With Differential Ord2 [...] 1.65 K/ul 12/05/2016 Cbc With Differential Ord2 Loving ABS# 1.1 K/ul 12/05/2016 Cbc With Differential Ord2 Eos ABS# 0.2 K/ul 12/05/2016 Cbc With Differential Ord2 Baso ABS# 0.0 K/ul 12/05/2016 Uric Acid Ord77 Uric A 6.5 mg/dL 12/05/2016 Comp Metabolic Bvh306 NA 136 mEq/L 12/05/2016 Comp Metabolic Cwg940 K 4.4 mEq/L 12/05/2016 Comp Metabolic Efv735 CL 99 mEq/L 12/05/2016 Comp Metabolic Sxw581 CO2 28.0 mEq/L 12/05/2016 Comp Metabolic Oml720 AN ION GAP 13 12/05/2016 Comp Metabolic Yjk963 GL UCOSE 84 mg/dL 12/05/2016 Comp Metabolic Ynk324 Cr eat 1.0 mg/dL 12/05/2016 Comp Metabolic Kfy881 eG FR 84 ml/min/1.73m2 12/05 Comp Metabolic Pjm189 BUN 14 mg/dL 12/05/2016 Comp Metabolic Wte378 B/ C Ratio 14.7 Ratio 12/05/2016 Comp Metabolic Uug894 CA LCIUM 9.0 mg/dL 12/05/2016 Comp Metabolic Lco860 AL K PHOS 55 U/L 12/05/2016 Comp Metabolic Lvd992 T(SGOT) 26 U/L 12/05/2016 Comp Metabolic Lyj911 AL T(SGPT) 25 U/L 12/05/2016 Comp Metabolic Ulj076 BI LI T 0.4 mg/dL 12/05/2016 Comp Metabolic Zwe402 AL BUMIN 4.1 g/dL 12/05/2016 Comp Metabolic Ebx910 TP RO 6.8 g/dL 12/05/2016 Comp Metabolic Jui586 GL OB 2.7 g/dL 12/05/2016 Comp Metabolic Kfp982 A/ G Ratio 1.5 Ratio 12/05/2016 Comp Metabolic Fqe886 Os mo 272 mOsmo 12/05/2016 Comp Metabolic Oii744 NA 136 mEq/L 11/13/2016 Comp Metabolic Omm410 K 4.2 mEq/L 11/13/2016 Comp Metabolic Tqx440 CL 98 mEq/L 11/13/2016 Comp Metabolic Gye066 CO2 29.0 mEq/L 11/13/2016 Comp Metabolic Mau225 AN ION GAP 13 11/13/2016 Comp Metabolic Ito969 GL UCOSE 94 mg/dL 11/13/2016 Comp Metabolic Par915 Cr eat 1.0 mg/dL 11/13/2016 Comp Metabolic Jln778 eG FR 78 ml/min/1.73m2 11/13 Comp Metabolic Ruy446 BUN 12 mg/dL 11/13/2016 Comp Metabolic Gjp673 B/ C Ratio 11.9 Ratio 11/13/2016 Comp Metabolic Oal791 CA LCIUM 9.4 mg/dL 11/13/2016 Comp Metabolic Cut821 AL K PHOS 56 U/L 11/13/2016 Comp Metabolic Exd519 T(SGOT) 25 U/L 11/13/2016 Comp Metabolic Cod902 AL T(SGPT) 25 U/L 11/13/2016 Comp Metabolic Kjy944 BI LI T 0.6 mg/dL 11/13/2016 Comp Metabolic Bho931 AL BUMIN 4.2 g/dL 11/13/2016 Comp Metabolic Vlh727 TP RO 6.7 g/dL 11/13/2016 Comp Metabolic Ekx379 GL OB 2.5 g/dL 11/13/2016 Comp Metabolic Dbr694 A/ G Ratio 1.6 Ratio 11/13/2016 Comp Metabolic Hgf685 Os mo 271 mOsmo 11/13/2016 Urine Culture [...] 31.2 pg 06/12/2016 Cbc With Differential Ord2 Loving% 15.1 % 06/12/2016 Cbc With Differential Ord2 [...] 1.66 K/ul 06/12/2016 Cbc With Differential Ord2 Loving ABS# 1.1 K/ul 06/12/2016 Cbc With Differential Ord2 Eos ABS# 0.2 K/ul 06/12/2016 Cbc With Differential Ord2 Baso ABS# 0.1 K/ul 06/12/2016 Comp Metabolic Sou173 NA 132 mEq/L 06/12/2016 Comp Metabolic Erl407 K 4.2 mEq/L 06/12/2016 Comp Metabolic Jhm339 CL 97 mEq/L 06/12/2016 Comp Metabolic Xzw483 CO2 28.0 mEq/L 06/12/2016 Comp Metabolic Ebm887 AN ION GAP 11 06/12/2016 Comp Metabolic Hgp805 GL UCOSE 98 mg/dL 06/12/2016 Comp Metabolic Xeh348 Cr eat 1.0 mg/dL 06/12/2016 Comp Metabolic Bnj228 eG FR 78 ml/min/1.73m2 06/12 Comp Metabolic Cfe352 BUN 12 mg/dL 06/12/2016 Comp Metabolic Tev295 B/ C Ratio 11.9 Ratio 06/12/2016 Comp Metabolic Yyv266 CA LCIUM 9.2 mg/dL 06/12/2016 Comp Metabolic Eri453 AL K PHOS 58 U/L 06/12/2016 Comp Metabolic Hyw564 T(SGOT) 23 U/L 06/12/2016 Comp Metabolic Swv725 AL T(SGPT) 22 U/L 06/12/2016 Comp Metabolic Myb243 BI LI T 0.6 mg/dL 06/12/2016 Comp Metabolic Ohv368 AL BUMIN 4.2 g/dL 06/12/2016 Comp Metabolic Hoc591 TP RO 6.8 g/dL 06/12/2016 Comp Metabolic Hme208 GL OB 2.6 g/dL 06/12/2016 Comp Metabolic Kkr506 A/ G Ratio 1.6 Ratio 06/12/2016 Comp Metabolic Dxb690 Os mo 264 mOsmo 06/12/2016 Tsh Ord6 hTSH II 2.41 uIU/mL 12/21/2015 Comp Metabolic Ajm448 NA 135 mEq/L 12/21/2015 Comp Metabolic Ieu976 K 4.2 mEq/L 12/21/2015 Comp Metabolic Ana780 CL 98 mEq/L 12/21/2015 Comp Metabolic Dld420 CO2 29.0 mEq/L 12/21/2015 Comp Metabolic Nbr410 AN ION GAP 12 12/21/2015 Comp Metabolic Xqi777 GL UCOSE 99 mg/dL 12/21/2015 Comp Metabolic Rua927 Cr eat 1.1 mg/dL 12/21/2015 Comp Metabolic Hcq518 eG FR 70 ml/min/1.73m2 12/20 Comp Metabolic Cir479 BUN 17 mg/dL 12/21/2015 Comp Metabolic Nci521 B/ C Ratio 15.2 Ratio 12/21/2015 Comp Metabolic Itm029 CA LCIUM 9.1 mg/dL 12/21/2015 Comp Metabolic Ttq640 AL K PHOS 60 U/L 12/21/2015 Comp Metabolic Ugr202 T(SGOT) 23 U/L 12/21/2015 Comp Metabolic Gwy920 AL T(SGPT) 22 U/L 12/21/2015 Comp Metabolic Akf706 BI LI T 0.6 mg/dL 12/21/2015 Comp Metabolic Zeo998 AL BUMIN 4.3 g/dL 12/21/2015 Comp Metabolic Lef032 TP RO 7.0 g/dL 12/21/2015 Comp Metabolic Lwf041 GL OB 2.8 g/dL 12/21/2015 Comp Metabolic Xir844 A/ G Ratio 1.5 Ratio 12/21/2015 Comp Metabolic Hjv334 Os mo 272 mOsmo 12/21/2015 Cbc With [...] 30.5 pg 12/21/2015 Cbc With Differential Ord2 Loving% 15.3 % 12/21/2015 Cbc With Differential Ord2 [...] 1.58 K/ul 12/21/2015 Cbc With Differential Ord2 Loving ABS# 1.0 K/ul 12/21/2015 Cbc With Differential [...] inspection of skin Location: face 05/16/2018 right jewish Full Exam - Dermatology Constitutional general appearance [...] palp - head/face Location: on the right jewish 03/11/2018 None Full Exam - Dermatology Integument [...] Procedure Codes Date DESTRUCT PREMALG LESION CPT-4: 87610 04/01/2019 DESTRUCT PREMALG LES 2-14 CPT-4: 16490 04/01/2019 URINALYSIS NONAUTO W /O SCOPE CPT-4: 01418 10/02/2016 URINALYSIS NONAUTO W /O SCOPE CPT-4: 40982 09/27/2015 Vital Signs Date Vital 04/01/2019 Blood Pressure 1: 132/76 Code: 8480-6 BMI: 29.6 Code: 57894-0 Heart Rate 1: 85 bpm Height: 5'10" SpO2: 96% Weight: 206 lbs 01/08/2019 Blood Pressure 1: 148/68 Code: 8480-6 BMI: 29.1 Code: 94882-0 Heart Rate 1: 95 bpm Height: 5'10" SpO2: 98% Weight: 203 lbs 05/16/2018 Blood Pressure 1: 144/84 Code: 8480-6 BMI: 29.3 Code: 90981-6 Heart Rate 1: 71 bpm Height: 5'10" SpO2: 98% Weight: 204 lbs 03/11/2018 Blood Pressure 1: 126/74 Code: 8480-6 BMI: 29.3 Code: 28667-5 Heart Rate 1: 84 bpm Height: 5'10" SpO2: 97% Weight: 204 lbs 01/25/2018 Blood Pressure 1: 134/80 Code: 8480-6 BMI: 29.3 Code: 24794-6 Heart Rate 1: 86 bpm Height: 5'10" SpO2: 97% Weight: 204 lbs 11/01/2017 Blood Pressure 1: 130/80 Code: 8480-6 BMI: 28.6 Code: 32101-5 Heart Rate 1: 72 bpm Height: 5'10" SpO2: 98% Temperature: 36.5 (C ) / 97.7 (F) Weight: 199 lbs 09/11/2017 Blood Pressure 1: 128/80 Code: 8480-6 Heart Rate 1: 72 bpm Height: 5'10" SpO2: 99% Weight: 08/27/2017 Blood Pressure 1: 126/70 Code: 8480-6 BMI: 29.8 Code: 80371-6 Heart Rate 1: 107 bpm Height: 5'10" SpO2: 96% Weight: 208 lbs 12/05/2016 Blood Pressure 1: 140/78 Code: 8480-6 BMI: 28.6 Code: 79928-2 Heart Rate 1: 98 bpm Height: 5'10" SpO2: 96% Weight: 199 lbs 06/06/2016 Blood Pressure 1: 142/80 Code: 8480-6 BMI: 28.7 Code: 62993-3 Heart Rate 1: 95 bpm Height: 5'10" SpO2: 97% Weight: 200 lbs 12/07/2015 Blood Pressure 1: 132/78 Code: 8480-6 BMI: 28.6 Code: 37361-3 Heart Rate 1: 81 bpm Height: 5'10" SpO2: 97% Weight: 199 lbs 06/29/2015 Blood Pressure 1: 118/76 Code: 8480-6 BMI: 28.7 Code: 97683-4 Heart Rate 1: 98 bpm Height: 5'10" SpO2: 98% Weight: 200 lbs 12/31/2014 Blood Pressure 1: 132/72 Code: 8480-6 BMI: 28.6 Code: 97375-8 Heart Rate 1: 75 bpm Height: 5'10" [...] Episodes years 12/31/2014 he worked on the [employer] and has had ear damage from no hearing protection Advance Directives No Advance Directive data Encounters Encounter Performer Loca tion Codes Date EST. PATIENT, LEVEL III Diagnosis: Cellulitis of left lower limb[ICD10: L03.116] Diagnosis: Bitten or stung by nonvenomous insect and other nonvenomous arthropods, initial encounter[ICD10: W57.XXXA] [facility] CPT-4: 57821 01/08/2019 ([id number] 72558 EST. P ATIENT, LEVEL III Diagnosis: Acute upper respiratory infection, unspecified[ICD10: J06.9] Diagnosis: Actinic keratosis[ICD10: L57.0] Aydee Lane MD, [facility] CPT- 4: 48909 05/16/2018 09869 EST. PATIENT, LEVEL III Diagnosis: Actinic keratosis[ICD10: L57.0] Diagnosis: Basal cell carcinoma of skin of other parts of face[ICD10: C44.319] [facility] CPT-4: 34988 03/11/2018 [id number] EST. PATIENT, LEVEL III Diagnosis: Encounter for follow-up examination after completed treatment for conditions other than malignant neoplasm[ICD10: Z09] [facility] CPT-4: 50248 01/25/2018 ([id number] 41501 EST. P ATIENT, LEVEL III Diagnosis: Acute recurrent maxillary sinusitis[ICD10: J01.01] Diagnosis: Cough[ICD10: R05] Aydee Lane MD, [facility] CPT-4: 77192 11/01/2017 67746 EST. PATIENT, LEVEL III Diagnosis: Olecranon bursitis, left elbow[ICD10: M70.22] Kati Lane MD, [facility] CPT-4: 12084 09/11/2017 ([id number]) Miscellaneou s no charge Diagnosis: Essential (primary) hypertension[ICD10: I10] Vianney Lane MD[facility] CPT-4: 85639 09/03/2017 64500 EST. PATIENT, LEVEL IV Diagnosis: Essential (primary) hypertension[ICD10: I10] Diagnosis: Bitten by dog, initial encounter[ICD10: W54.0XXA] Kati Lane MD, [facility] CPT-4: 08325 08/27/2017 ([id number]) 62927 EST. 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 CPT-4: 37710 12/05/2016 ([id number]) 85371 EST. P ATIENT, LEVEL IV Diagnosis: Essential (primary) hypertension[ICD10: I10] Diagnosis: Mixed hyperlipidemia[ICD10: E78.2] Diagnosis: Personal history of other malignant neoplasm of bronchus and lung[ICD10: Z85.118] Diagnosis: Diseases of lips[ICD10: K13.0] Vianney Lane MD, [facility] CPT-4: 58847 06/06/2016 ([id number]) 25605 EST. P ATIENT, LEVEL IV Diagnosis: Essential (primary) hypertension[ICD10: I10] Diagnosis: Mixed hyperlipidemia[ICD10: E78.2] Diagnosis: Bicipital tendinitis, right shoulder[ICD10: M75.21] Vianney Lane MD, [facility] CPT-4: 02618 12/07/2015 ([id number]) 37085 EST. P ATIENT, LEVEL IV Diagnosis: Essential (primary) hypertension[ICD10: I10] Diagnosis: Pain in right shoulder[ICD10: M25.511] [facility] CPT-4: 70870 06/29/2015 ([id number]) OFFICE VISI T, [facility] - LEVEL 4 Diagnosis: ESSENTIAL HYPERTENSION[ICD9: 401.9] Diagnosis: HYPERLIPIDEMIA[ICD9: 272.4] [facility] CPT-4: 67998 12/31/2014 Plan of Care Planned Activity Notes C odes Status Date Visit Plan: Actinic Keratosis - gissell ated with cryotherapy x 3, pt advised on how to appropriately care for the lesion. Call if not improved after thorough healing. 04/01/2019 Appointment: Aydee Gallardo WPtel: [facility] [phone] (30 min) Complex 04/01/2019 Patient Education: Patient Medication Summary Completed 04/01/2019 Appointment: Kati Appiah WPtel: [address] [place], [place] [phone] (30 min) Complex 01/28/2019 Visit Plan: cellulitis, tick bite, spider bite - The patient was instructed in appropriate wound care. The patient was instructed to use the antibiotic ointment as per RX. The patient is to call for any change in s ymptoms, increase in size of the lesion, increase in pain, worsening redness, warmth, discharge. 01/08/2019 Appointment: Kati Appiah WPtel: [address] [place], [place] [phone] [...] the office 05/16/2018 Appointment: Aydee Gallardo WPtel: [facility] [phone] (15 min) Moderate 05/16/2018 Patient Education: Patient [...] acute concerns. 03/11/2018 Appointment: Kati Appiah WPtel: [facility] [place]66[facility] (15 min) Moderate 03/11/2018 Patient Education: Patient Medication Summary Completed 03/11/2018 Visit Plan: ER follow up - symptoms resolved at this time - will call for ER report - pt is to notify clinic if symptoms do not improve, if they worsen, or with any changes, questions, or concerns. 01/25/2018 Appointment: Kati Appiah WPtel: [facility] [place] [...] not resolve 11/01/2017 Appointment: Aydee Gallardo WPtel: [facility] [phone] [place] (15 min) Moderate 11/01/2017 Patient Education: Patient Medication Summary Completed 11/01/2017 Visit Plan: Bursitis - after dog bi te - will send RX - pt to do exercises as directed - stretching, anti-inflammatories to be started after 24 hours, and pt to use heat to the affected sites, pt to call if not improving. 09/11/2017 Appointment: Kati Appiah WPtel: [facility] [place] [place] (30 min) Complex 09/11/2017 Patient Education: [...] concerns. 08/27/2017 [phone] (15 min) Moderate 08/27/2017 Patient Education: [...] when available. 12/05/2016 [facility]ment[phone] [phone] (30 min) Complex 12/05/2016 Patient Education: Patient Medication Summary Completed 12/05/2016 [facility]ment: [phone] [phone] (30 min) Complex 12/04/2016 Appointment: Lab Draw 10/02/2016 Patient Education: Patient Medication Summary Completed 10/02/2016 [facility] Patient informed. Referral info faxed. Completed 06/22/2016 [...] pt 06/06/2016 Appointment: Vianney Lane WPtel: [facility] [place] (15 min) Moderate 06/06/2016 Patient Education: Patient Medication Summary Completed 06/06/2016 Patient Education: Hypertension Completed 06/06/2016 Care Plan: Referral Order SNOMED-CT : [id number] Pending 06/06/2016 Visit Plan: Hypertension - well [...] not improved. 12/07/2015 Appointment: Vianney Lane WPtel: [phone] [facility] (15 min) Moderate 12/07/2015 Patient Education: Patient [...] to medications. 12/31/2014 Appointment: Vianney Lane WPtel: [facility] [place] [place] (S) New Patient 12/31/2014 Patient Education: Patient Medication Summary Completed 12/31/2014 Patient Education: Hypertension Completed 12/31/2014 Referral: Austin Li [facility] [place] Referral Appointment Requested Instructions Comment Monitor [...] probiotic while on t he doxycycline - [employer] [facility], culturelle, or generic . Hypertension - [...] old goats - musc le rub from [employer] and home . Hypertension - well controlled [...]
--- OUTSIDE RECORDS SUMMARY | 2019-12-19 09:07 | XMS REPORT | CCD ---
Author Author Aniceto Lane Organization Vianney Lane MD, [facility] Address [address] [place] [address] Phone Care Team Providers Care Wastewater Manager Name Role Phone PP Unavailable CCM Unavailable Summary Purpose Interface Exchange Insurance Providers Payer name Policy type / Coverage type Covered republican ID Effective Begin Date Effective End Date [employer] Medicare Part B [id number] Unknown [facility] Employee Health [facility] Medicare Part B [id number] Unknown Family history Father Diagnosis Age At Onset Cancer Unknown Mother Diagnosis Age At Onset Hypertension Unknown Hyperlipidemia Unknown Social History Social History Element Codes Description Effective Dates Marital status Unknown M arried Yelena 12/31/2014 Number of children Unknown 0 12/31/2014 Employment Unknown Retir ed 12/31/[address]: 1235084 Quit over 10 years ago 200012/31/[address]: 716019 Currently drinks alcohol 12/31/2014 Frequency of drinks SNOMED CT: 422245913 7 drinks per week 12/31/2014 Allergies, Adverse Reactions, Alerts Substance Reaction Codes Entered Date Inactivated Date Status * NO KNOWN DRUG VIGNESH RGIES Unknown 12/31/2014 No Inactive Date Active Past Medical History Illness Codes Condition Status Onset Date Resolved Date Bitten or stung by n onvenomous insect and other nonvenomous arthropods, initial encounter ICD-9: 919.4 ICD-10: W57.XXXA Active 01/08/2019 Unknown Cellulitis of left l ower limb ICD-9: 682.6 ICD-10: L03.116 Active 01/08/2019 Unknown Actinic keratosis ICD-9: 702.0 ICD-10: L57.0 Active 03/11/2018 Unknown Acute upper respirat ory infection, unspecified [...] Condition Codes Effectiv e Dates Condition Status Bitten or stung by n onvenomous insect and other nonvenomous arthropods, initial encounter ICD-9: 919.4 ICD-10: W57.XXXA 01/08/2019 Active Cellulitis of left l ower limb ICD-9: 682.6 ICD-10: L03.116 01/08/2019 Active Actinic keratosis ICD-9: 702.0 ICD-10: L57.0 03/11/2018 Active Acute upper respirat ory infection, unspecified [...] Fill Instructions dapsone 100 mg tablet RxNorm: 884497 1 Tablet(s) PO daily 01/08/2019 01/14/2019 Active doxycycline hyclate 100 mg capsule RxNorm: 0024636 1 Capsule(s) PO BID 01/08/2019 01/17/2019 Ac tive Coreg 3.125 mg tablet RxNorm: 266289 1 Tablet(s) PO BID 10/08/2018 04/05/2019 Active omeprazole 20 mg cap owen,delayed release RxNorm: 819290 Capsule(s) TAKE ONE C APSULE BY MOUTH ONCE DAILY 07/09/2018 No Stop Date Active lovastatin 40 mg tablet RxNorm: 325493 Tablet(s) TAKE ONE TABLET BY MOUTH ONCE DAILY 07/09/2018 07/03/2019 Ac tive omeprazole 20 mg cap owen,delayed release RxNorm: 146786 TAKE ONE CAPSULE BY M OUTH ONCE DAILY 06/10/2018 07/08/2018 Inactive lisinopril 10 mg-hyd rochlorothiazide 12.5 mg tablet RxNorm: 597358 1 Tablet(s) PO daily 04/01/2018 2019 Active Coreg 3.125 mg tablet RxNorm: 130764 1 Tablet(s) PO BID 04/01/2018 09/27/2018 Inactive lovastatin 40 mg tablet RxNorm: 800093 Tablet(s) TAKE ONE TABLET BY MOUTH ONCE DAILY 03/11/2018 07/08/2018 Inactive lovastatin 40 mg tablet RxNorm: 611191 TAKE ONE TABLET BY MOUTH ONCE DAILY 12/17/2017 03/10/2018 In active Keflex 500 mg capsule RxNorm: 679347 1 Capsule(s) PO TID 11/01/2017 11/07/2017 Inactive doxycycline hyclate 100 mg capsule RxNorm: 6133275 1 Capsule(s) PO BID 09/11/2017 09/17/2017 In active Coreg 3.125 mg tablet RxNorm: 926415 1 Tablet(s) PO BID 09/03/2017 03/31/2018 Inactive Coreg 3.125 mg tablet RxNorm: 855152 1 Tablet(s) PO BID 09/03/2017 09/02/2017 Inactive doxycycline hyclate 100 mg capsule RxNorm: 6957442 1 Capsule(s) PO BID 08/27/2017 09/02/2017 In active lovastatin 40 mg tablet RxNorm: 792268 1 Tablet(s) PO daily 08/08/2017 12/05/2017 Inactive omeprazole 20 mg cap owen,delayed release RxNorm: 486980 1 Capsule(s) PO daily 07/23/2017 06/09/2018 In active lisinopril 10 mg-hyd rochlorothiazide 12.5 mg tablet RxNorm: 533583 1 Tablet(s) PO daily 07/09/2017 03/31/2018 Inactive patient needs to call the office to raegan haynes fluorouracil 5 % top ical cream RxNorm: 706068 1 Gram(s) TOP BID x2 weeks ONLY 03/26/2017 04/08/2017 In active fluorouracil 5 % top ical cream RxNorm: 797547 1 Gram(s) TOP BID x2 weeks ONLY 03/26/2017 03/25/2017 In active Colcrys 0.6 mg tablet RxNorm: 484891 2 Tablet(s) PO UD 12/05/2016 No Stop Date Active 2 ta bs today then 1 tab daily x 5 days then prn gout lisinopril 10 mg-hyd rochlorothiazide 12.5 mg tablet RxNorm: 896556 1 Tablet(s) PO daily 10/12/2016 07/08/2017 Inactive Cipro 500 mg tablet RxNorm: 308575 1 Tablet(s) PO BID 10/02/2016 10/08/2016 Inactive Cipro 500 mg tablet RxNorm: 525427 1 Tablet(s) PO BID 10/02/2016 10/01/2016 Inactive lovastatin 40 mg tablet RxNorm: 416099 Tablet(s) PO 07/27/2016 08/07/2017 Inactive Cipro 500 mg tablet RxNorm: 248193 1 Tablet(s) PO BID 09/27/2015 09/26/2015 Inactive Cipro 500 mg tablet RxNorm: 719111 1 Tablet(s) PO BID 09/27/2015 10/03/2015 Inactive omeprazole 20 mg cap owen,delayed release RxNorm: 078862 1 Capsule(s) PO daily 07/06/2015 06/29/2016 In active lisinopril 10 mg-hyd rochlorothiazide 12.5 mg tablet RxNorm: 797777 1 Tablet(s) PO daily 07/06/2015 10/03/2015 Inactive lovastatin 40 mg tablet RxNorm: 241516 Tablet(s) PO 12/31/2014 07/26/2016 Inactive lisinopril 10 mg-hyd rochlorothiazide 12.5 mg tablet RxNorm: 938340 1 Tablet(s) PO daily 12/31/2014 03/30/2015 Inactive Ocuvite oral RxNorm: 357861 oral No Start Date Active aspirin 81 mg tablet ,delayed release RxNorm: 880139 1 Tablet(s) PO daily No Start Date Active Prilosec oral RxNorm: 7646 oral No Start Date 12/07/2015 Inactive lovastatin oral RxNorm: 753138 oral No Start Date 12/30/2014 Inactive Medication Administered No Medication Administered data Immunizations Vaccine Codes Date Status Influenza CVX: 141 05/18 completed Assessments Condition Codes Effectiv e Dates Cellulitis of left lower limb ICD-10 : L03.116 ICD-9: 682.6 01/08/2019 Bitten or stung by nonvenomous insect an d other nonvenomous arthropods, initial encounter ICD-10: W57.XXXA ICD-9: 919.4 01/08/2019 Acute upper respiratory infection, unspecified ICD-10: J06.9 ICD-9: 465.9 05/16/2018 Actinic keratosis ICD-10: L57.0 ICD-9: 702.0 05/16/2018 Basal cell carcinoma of skin of [...] Visit Reason For Visit Effective Dates Notes arthropod bite 01/08/2019 skin lesion 05/16/2018 skin [...] 31.3 pg 08/27/2017 Cbc With Differential Ord2 Sublette% 12.7 % 08/27/2017 Cbc With Differential Ord2 [...] 1.75 K/ul 08/27/2017 Cbc With Differential Ord2 Sublette ABS# 0.8 K/ul 08/27/2017 Cbc With Differential Ord2 Eos ABS# 0.1 K/ul 08/27/2017 Cbc With Differential Ord2 Baso ABS# 0.0 K/ul 08/27/2017 Lipid Ord30 CHOL 170 mg/dL 08/27/2017 Lipid Ord30 HDL 52.0 mg/dl 08/27/2017 Lipid Ord30 TRIG 106 mg/dL 08/27/2017 Lipid Ord30 LDL 97 mg/dL 08/27/2017 Lipid Ord30 C/HDL 3.3 Ratio 08/27/2017 Total Psa Ord10 PSA 1.09 ng/mL 08/27/2017 Comp Metabolic Bft218 NA 136 mEq/L 08/27/2017 Comp Metabolic Rec023 K 4.2 mEq/L 08/27/2017 Comp Metabolic Gkw207 CL 98 mEq/L 08/27/2017 Comp Metabolic Wey335 CO2 26.0 mEq/L 08/27/2017 Comp Metabolic Xda701 AN ION GAP 16 08/27/2017 Comp Metabolic Zvl549 GL UCOSE 119 mg/dL 08/27/2017 Comp Metabolic Nhy716 Cr eat 1.2 mg/dL 08/27/2017 Comp Metabolic Shs155 eG FR 67 ml/min/1.73m2 08/27 Comp Metabolic Lws191 BUN 14 mg/dL 08/27/2017 Comp Metabolic Csn303 B/ C Ratio 12.2 Ratio 08/27/2017 Comp Metabolic Vrt427 CA LCIUM 9.5 mg/dL 08/27/2017 Comp Metabolic Xms516 AL K PHOS 60 U/L 08/27/2017 Comp Metabolic Ztg054 T(SGOT) 40 U/L 08/27/2017 Comp Metabolic Xtc776 AL T(SGPT) 40 U/L 08/27/2017 Comp Metabolic Bxe037 BI LI T 0.6 mg/dL 08/27/2017 Comp Metabolic Uly440 AL BUMIN 4.4 g/dL 08/27/2017 Comp Metabolic Jtp317 TP RO 6.9 g/dL 08/27/2017 Comp Metabolic Uoy471 GL OB 2.5 g/dL 08/27/2017 Comp Metabolic Gdy252 A/ G Ratio 1.7 Ratio 08/27/2017 Comp Metabolic Tlx377 Os mo 274 mOsmo 08/27/2017 Comp Metabolic Emo337 NA 137 mEq/L 01/23/2017 Comp Metabolic Hkt959 K 4.7 mEq/L 01/23/2017 Comp Metabolic Vyg452 CL 99 mEq/L 01/23/2017 Comp Metabolic Xfo046 CO2 30.0 mEq/L 01/23/2017 Comp Metabolic Esn679 AN ION GAP 13 01/23/2017 Comp Metabolic Hgw497 GL UCOSE 92 mg/dL 01/23/2017 Comp Metabolic Mjr623 Cr eat 1.0 mg/dL 01/23/2017 Comp Metabolic Hdh084 eG FR 77 ml/min/1.73m2 01/23 Comp Metabolic Fot346 BUN 13 mg/dL 01/23/2017 Comp Metabolic Dml661 B/ C Ratio 12.7 Ratio 01/23/2017 Comp Metabolic Qhg555 CA LCIUM 9.3 mg/dL 01/23/2017 Comp Metabolic Oxx054 AL K PHOS 56 U/L 01/23/2017 Comp Metabolic Eqz738 T(SGOT) 26 U/L 01/23/2017 Comp Metabolic Ojz642 AL T(SGPT) 25 U/L 01/23/2017 Comp Metabolic Cpp631 BI LI T 0.5 mg/dL 01/23/2017 Comp Metabolic Udx757 AL BUMIN 4.2 g/dL 01/23/2017 Comp Metabolic Nsq861 TP RO 6.9 g/dL 01/23/2017 Comp Metabolic Pbq056 GL OB 2.7 g/dL 01/23/2017 Comp Metabolic Gnv411 A/ G Ratio 1.5 Ratio 01/23/2017 Comp Metabolic Jip766 Os mo 274 mOsmo 01/23/2017 Cbc With [...] 31.5 pg 12/05/2016 Cbc With Differential Ord2 Sublette% 13.0 % 12/05/2016 Cbc With Differential Ord2 [...] 1.65 K/ul 12/05/2016 Cbc With Differential Ord2 Sublette ABS# 1.1 K/ul 12/05/2016 Cbc With Differential Ord2 Eos ABS# 0.2 K/ul 12/05/2016 Cbc With Differential Ord2 Baso ABS# 0.0 K/ul 12/05/2016 Uric Acid Ord77 Uric A 6.5 mg/dL 12/05/2016 Comp Metabolic Chl614 NA 136 mEq/L 12/05/2016 Comp Metabolic Zpr680 K 4.4 mEq/L 12/05/2016 Comp Metabolic Txg950 CL 99 mEq/L 12/05/2016 Comp Metabolic Alt072 CO2 28.0 mEq/L 12/05/2016 Comp Metabolic Hfu771 AN ION GAP 13 12/05/2016 Comp Metabolic Kny779 GL UCOSE 84 mg/dL 12/05/2016 Comp Metabolic Ern712 Cr eat 1.0 mg/dL 12/05/2016 Comp Metabolic Mqp058 eG FR 84 ml/min/1.73m2 12/05 Comp Metabolic Sgn814 BUN 14 mg/dL 12/05/2016 Comp Metabolic Kjb979 B/ C Ratio 14.7 Ratio 12/05/2016 Comp Metabolic Zyc594 CA LCIUM 9.0 mg/dL 12/05/2016 Comp Metabolic Mfz352 AL K PHOS 55 U/L 12/05/2016 Comp Metabolic Oij077 T(SGOT) 26 U/L 12/05/2016 Comp Metabolic Vmv040 AL T(SGPT) 25 U/L 12/05/2016 Comp Metabolic Ipq950 BI LI T 0.4 mg/dL 12/05/2016 Comp Metabolic Hgl920 AL BUMIN 4.1 g/dL 12/05/2016 Comp Metabolic Wnk923 TP RO 6.8 g/dL 12/05/2016 Comp Metabolic Vmf962 GL OB 2.7 g/dL 12/05/2016 Comp Metabolic Osn559 A/ G Ratio 1.5 Ratio 12/05/2016 Comp Metabolic Fln728 Os mo 272 mOsmo 12/05/2016 Comp Metabolic Hnr741 NA 136 mEq/L 11/13/2016 Comp Metabolic Bbw051 K 4.2 mEq/L 11/13/2016 Comp Metabolic Aks579 CL 98 mEq/L 11/13/2016 Comp Metabolic Otz199 CO2 29.0 mEq/L 11/13/2016 Comp Metabolic Zrb542 AN ION GAP 13 11/13/2016 Comp Metabolic Zmd160 GL UCOSE 94 mg/dL 11/13/2016 Comp Metabolic Cos004 Cr eat 1.0 mg/dL 11/13/2016 Comp Metabolic Uug433 eG FR 78 ml/min/1.73m2 11/13 Comp Metabolic Ibc023 BUN 12 mg/dL 11/13/2016 Comp Metabolic Swe270 B/ C Ratio 11.9 Ratio 11/13/2016 Comp Metabolic Yud460 CA LCIUM 9.4 mg/dL 11/13/2016 Comp Metabolic Uze173 AL K PHOS 56 U/L 11/13/2016 Comp Metabolic Ixi181 T(SGOT) 25 U/L 11/13/2016 Comp Metabolic Ojf061 AL T(SGPT) 25 U/L 11/13/2016 Comp Metabolic Fuk178 BI LI T 0.6 mg/dL 11/13/2016 Comp Metabolic Yel133 AL BUMIN 4.2 g/dL 11/13/2016 Comp Metabolic Cvx838 TP RO 6.7 g/dL 11/13/2016 Comp Metabolic Oga966 GL OB 2.5 g/dL 11/13/2016 Comp Metabolic Wnt902 A/ G Ratio 1.6 Ratio 11/13/2016 Comp Metabolic Wtw032 Os mo 271 mOsmo 11/13/2016 Urine Culture [...] 31.2 pg 06/12/2016 Cbc With Differential Ord2 Sublette% 15.1 % 06/12/2016 Cbc With Differential Ord2 [...] 1.66 K/ul 06/12/2016 Cbc With Differential Ord2 Sub[place] ABS# 1.1 K/ul 06/12/2016 Cbc With Differential Ord2 Eos ABS# 0.2 K/ul 06/12/2016 Cbc With Differential Ord2 Baso ABS# 0.1 K/ul 06/12/2016 Comp Metabolic Jkz146 NA 132 mEq/L 06/12/2016 Comp Metabolic Nty061 K 4.2 mEq/L 06/12/2016 Comp Metabolic Jxm875 CL 97 mEq/L 06/12/2016 Comp Metabolic Brc129 CO2 28.0 mEq/L 06/12/2016 Comp Metabolic Hmk097 AN ION GAP 11 06/12/2016 Comp Metabolic Ati339 GL UCOSE 98 mg/dL 06/12/2016 Comp Metabolic Yqr710 Cr eat 1.0 mg/dL 06/12/2016 Comp Metabolic Nmx092 eG FR 78 ml/min/1.73m2 06/12 Comp Metabolic Eed003 BUN 12 mg/dL 06/12/2016 Comp Metabolic Obn383 B/ C Ratio 11.9 Ratio 06/12/2016 Comp Metabolic Chq199 CA LCIUM 9.2 mg/dL 06/12/2016 Comp Metabolic Gbo187 AL K PHOS 58 U/L 06/12/2016 Comp Metabolic Gjq194 T(SGOT) 23 U/L 06/12/2016 Comp Metabolic Jty237 AL T(SGPT) 22 U/L 06/12/2016 Comp Metabolic Kmn590 BI LI T 0.6 mg/dL 06/12/2016 Comp Metabolic Qed117 AL BUMIN 4.2 g/dL 06/12/2016 Comp Metabolic Iph961 TP RO 6.8 g/dL 06/12/2016 Comp Metabolic Bfm221 GL OB 2.6 g/dL 06/12/2016 Comp Metabolic Yol794 A/ G Ratio 1.6 Ratio 06/12/2016 Comp Metabolic Exw325 Os mo 264 mOsmo 06/12/2016 Tsh Ord6 hTSH II 2.41 uIU/mL 12/21/2015 Comp Metabolic Dqj365 NA 135 mEq/L 12/21/2015 Comp Metabolic Aew515 K 4.2 mEq/L 12/21/2015 Comp Metabolic Czl412 CL 98 mEq/L 12/21/2015 Comp Metabolic Nha913 CO2 29.0 mEq/L 12/21/2015 Comp Metabolic Qpk999 AN ION GAP 12 12/21/2015 Comp Metabolic Koo615 GL UCOSE 99 mg/dL 12/21/2015 Comp Metabolic Ond230 Cr eat 1.1 mg/dL 12/21/2015 Comp Metabolic Tug161 eG FR 70 ml/min/1.73m2 12/20 Comp Metabolic Aac583 BUN 17 mg/dL 12/21/2015 Comp Metabolic Gke393 B/ C Ratio 15.2 Ratio 12/21/2015 Comp Metabolic Gos566 CA LCIUM 9.1 mg/dL 12/21/2015 Comp Metabolic Lel323 AL K PHOS 60 U/L 12/21/2015 Comp Metabolic Ayk813 T(SGOT) 23 U/L 12/21/2015 Comp Metabolic Vhq711 AL T(SGPT) 22 U/L 12/21/2015 Comp Metabolic Gfb078 BI LI T 0.6 mg/dL 12/21/2015 Comp Metabolic Ueo673 AL BUMIN 4.3 g/dL 12/21/2015 Comp Metabolic Lpx014 TP RO 7.0 g/dL 12/21/2015 Comp Metabolic Uoy953 GL OB 2.8 g/dL 12/21/2015 Comp Metabolic Brg526 A/ G Ratio 1.5 Ratio 12/21/2015 Comp Metabolic Vqg007 Os mo 272 mOsmo 12/21/2015 Cbc With [...] 30.5 pg 12/21/2015 Cbc With Differential Ord2 Sublette% 15.3 % 12/21/2015 Cbc With Differential Ord2 [...] 1.58 K/ul 12/21/2015 Cbc With Differential Ord2 Sublette ABS# 1.0 K/ul 12/21/2015 Cbc With Differential [...] Result Effective Dates Constitutional No recent illness 01/08/2019 Constitutional No [...] inspection of skin Location: face 05/16/2018 right spiritism Full Exam - Dermatology Constitutional general appearance [...] palp - head/face Location: on the right spiritism 03/11/2018 None Full Exam - Dermatology Integument [...] None Procedures Procedure Codes Date URINALYSIS NONAUTO W /O SCOPE CPT-4: 30019 10/02/2016 URINALYSIS NONAUTO W /O SCOPE CPT-4: 01430 09/27/2015 Vital Signs Date Vital 01/08/2019 Blood Pressure 1: 148/68 Code: 8480-6 BMI: 29.1 Code: 39521-1 Heart Rate 1: 95 bpm Height: 5'10" SpO2: 98% Weight: 203 lbs 05/16/2018 Blood Pressure 1: 144/84 Code: 8480-6 BMI: 29.3 Code: 56383-0 Heart Rate 1: 71 bpm Height: 5'10" SpO2: 98% Weight: 204 lbs 03/11/2018 Blood Pressure 1: 126/74 Code: 8480-6 BMI: 29.3 Code: 02763-9 Heart Rate 1: 84 bpm Height: 5'10" SpO2: 97% Weight: 204 lbs 01/25/2018 Blood Pressure 1: 134/80 Code: 8480-6 BMI: 29.3 Code: 84511-7 Heart Rate 1: 86 bpm Height: 5'10" SpO2: 97% Weight: 204 lbs 11/01/2017 Blood Pressure 1: 130/80 Code: 8480-6 BMI: 28.6 Code: 24876-6 Heart Rate 1: 72 bpm Height: 5'10" SpO2: 98% Temperature: 36.5 (C ) / 97.7 (F) Weight: 199 lbs 09/11/2017 Blood Pressure 1: 128/80 Code: 8480-6 Heart Rate 1: 72 bpm Height: 5'10" SpO2: 99% Weight: 08/27/2017 Blood Pressure 1: 126/70 Code: 8480-6 BMI: 29.8 Code: 85708-8 Heart Rate 1: 107 bpm Height: 5'10" SpO2: 96% Weight: 208 lbs 12/05/2016 Blood Pressure 1: 140/78 Code: 8480-6 BMI: 28.6 Code: 51942-2 Heart Rate 1: 98 bpm Height: 5'10" SpO2: 96% Weight: 199 lbs 06/06/2016 Blood Pressure 1: 142/80 Code: 8480-6 BMI: 28.7 Code: 43408-4 Heart Rate 1: 95 bpm Height: 5'10" SpO2: 97% Weight: 200 lbs 12/07/2015 Blood Pressure 1: 132/78 Code: 8480-6 BMI: 28.6 Code: 75680-4 Heart Rate 1: 81 bpm Height: 5'10" SpO2: 97% Weight: 199 lbs 06/29/2015 Blood Pressure 1: 118/76 Code: 8480-6 BMI: 28.7 Code: 62613-6 Heart Rate 1: 98 bpm Height: 5'10" SpO2: 98% Weight: 200 lbs 12/31/2014 Blood Pressure 1: 132/72 Code: 8480-6 BMI: 28.6 Code: 30334-7 Heart Rate 1: 75 bpm Height: 5'10" SpO2: 95% Weight: 199 lbs Functional Status No Functional Status data History of Present Illness Symptom Name Status Resu lt Effective Date Notes Location on the left leg 01/08/2019 None [...] fever 03/11/2018 None Hospital Follow Up _ [facility] er: kidney stone 01/25/2018 None Hospital Follow [...] Episodes years 12/31/2014 he worked on the [employer] and has had ear damage from no hearing protection Advance Directives No Advance Directive data Encounters Encounter Performer Loca tion Codes Date EST. PATIENT, LEVEL III Diagnosis: Cellulitis of left lower limb[ICD10: L03.116] Diagnosis: Bitten or stung by nonvenomous insect and other nonvenomous arthropods, initial encounter[ICD10: W57.XXXA] [facility] CPT-4: 46476 01/08/2019 ([id number]) 77540 EST. P ATIENT, LEVEL III Diagnosis: Acute upper respiratory infection, unspecified[ICD10: J06.9] Diagnosis: Actinic keratosis[ICD10: L57.0] [facility] CPT- 4: 44924 05/16/2018 [id number] EST. PATIENT, LEVEL III Diagnosis: Actinic keratosis[ICD10: L57.0] Diagnosis: Basal cell carcinoma of skin of other parts of face[ICD10: C44.319] [facility] CPT-4: 50027 03/11/2018 10273 EST. PATIENT, LEVEL III Diagnosis: Encounter for follow-up examination after completed treatment for conditions other than malignant neoplasm[ICD10: Z09] [facility] CPT-4: 18270 01/25/2018 ([id number]) 57489 EST. P ATIENT, LEVEL III Diagnosis: Acute recurrent maxillary sinusitis[ICD10: J01.01] Diagnosis: Cough[ICD10: R05] Aydee Lane MD, [facility] CPT-4: 52637 11/01/2017 [id number] EST. PATIENT, LEVEL III Diagnosis: Olecranon bursitis, left elbow[ICD10: M70.22] Kati Lane MD, [facility] CPT-4: 99805 09/11/2017 ([id number]) Miscellaneou s no charge Diagnosis: Essential (primary) hypertension[ICD10: I10] Vianney Lane [facility] CPT-4: 14889 09/03/2017 [id number] EST. PATIENT, LEVEL IV Diagnosis: Essential (primary) hypertension[ICD10: I10] Diagnosis: Bitten by dog, initial encounter[ICD10: W54.0XXA] Kati Lane MD, [facility] CPT-4: 97718 08/27/2017 ([id number]) 13886 EST. 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 P ATIENT, LEVEL IV Diagnosis: Essential (primary) hypertension[ICD10: I10] Diagnosis: Mixed hyperlipidemia[ICD10: E78.2] Diagnosis: Personal history of other malignant neoplasm of bronchus and lung[ICD10: Z85.118] Diagnosis: Diseases of lips[ICD10: K13.0] Vianney Lane MD, [facility] CPT-4: 78671 06/06/2016 ([id number]) 41658 EST. P ATIENT, LEVEL IV Diagnosis: Essential (primary) hypertension[ICD10: I10] Diagnosis: Mixed hyperlipidemia[ICD10: E78.2] Diagnosis: Bicipital tendinitis, right shoulder[ICD10: M75.21] Vianney Lane [facility] CPT-4: 33488 12/07/2015 ([id number]) 92070 EST. P ATIENT, LEVEL IV Diagnosis: Essential (primary) hypertension[ICD10: I10] Diagnosis: Pain in right shoulder[ICD10: M25.511] [facility] CPT-4: 59827 06/29/2015 ([id number]) OFFICE VISI T, NEW - LEVEL 4 Diagnosis: ESSENTIAL HYPERTENSION[ICD9: 401.9] Diagnosis: HYPERLIPIDEMIA[ICD9: 272.4] [facility] CPT-4: 10112 12/31/2014 Plan of Care Planned Activity Notes C odes Status Date Visit Plan: cellulitis, tick bite, spider bite - The patient was instructed in appropriate wound care. The patient was instructed to use the antibiotic ointment as per RX. The patient is to call for any change in s ymptoms, increase in size of the lesion, increase in pain, worsening redness, warmth, discharge. 01/08/2019 Appointment: Kati Appiah WPtel: [facility]5 [facility] (30 min) Complex 01/08/2019 Patient Education: Patient Medication Summary Completed 01/08/2019 Visit Plan: URI - Pt advised to inc rease fluids, vitamin C. Discussed natural and expected course of this diagnosis and need to alert me if symptoms do not follow expected course, or if any worse. AK-cryotherapy today in the office 05/16/2018 Appointment: Aydee Gallardo WPtel: [phone] (15 min) Moderate 05/16/2018 Patient Education: [...] acute concerns. 03/11/2018 Appointment: Kati Appiah WPtel: [facility] [place] (15 min) Moderate 03/11/2018 Patient Education: Patient Medication Summary Completed 03/11/2018 Visit Plan: ER follow up - symptoms resolved at this time - will call for ER report - pt is to notify clinic if symptoms do not improve, if they worsen, or with any changes, questions, or concerns. 01/25/2018 Appointment: Kati Appiah WPtel: [phone] [facility] [place] (15 min) Moderate 01/25/2018 Patient Education: Patient Medication Summary Completed 01/25/2018 Visit Plan: Sinusitis - Pt has acut e infection - pain in face, maxillary region, Pt informed to use decongestant, RX given to patient, sinus rinses also recommended. Call if symptoms do not show improvement. Cough- history lung ca-discussed chest xray if symptoms do not resolve 11/01/2017 Appointment: Aydee Gallardo WPtel: [phone] [phone] [place] (15 min) Moderate 11/01/2017 Patient Education: Patient Medication Summary Completed 11/01/2017 Visit Plan: Bursitis - after dog bi te - will send RX - pt to do exercises as directed - stretching, anti-inflammatories to be started after 24 hours, and pt to use heat to the affected sites, pt to call if not improving. 09/11/2017 Appointment: Kati Appiah WPtel: [phone] [facility] (30 min) Complex 09/11/2017 Patient Education: Patient [...] concerns. 08/27/2017 Appointment: Kati Appiah WPtel: [phone] [facility] (15 min) Moderate 08/27/2017 Patient Education: Patient [...] when available. 12/05/2016 Appointment: Aydee Gallardo WPtel: [phone] (30 min) Complex 12/05/2016 Patient Education: Patient Medication Summary Completed 12/05/2016 Appointment: Aydee Gallardo WPtel: [address] [place], [place] [phone] (30 min) Complex 12/04/2016 Appointment: Lab Draw 10/02/2016 Patient Education: Patient Medication Summary Completed 10/02/2016 Referral: Austin Li [id number] [place] Patient informed. Referral info faxed. Completed 06/22/2016 [...] to pt 06/06/2016 [phone] ([facility] min) Moderate 06/06/2016 Patient Education: Patient Medication Summary Completed 06/06/2016 Patient Education: Hypertension Completed 06/06/2016 Care Plan: Referral Order SNOMED-CT : [id number] Pending 06/06/2016 Visit Plan: Hypertension - well [...] improved. 12/07/2015 Appointment: [facility]el[phone] (15 min) Moderate 12/07/2015 Patient [...] to medications. 12/31/2014 Appointment: Vianney Lane WPtel: [address] [place], [place] [phone] [place] (S) New Patient 12/31/2014 Patient Education: Patient Medication Summary Completed 12/31/2014 Patient Education: Hypertension Completed 12/31/2014 [id number] Referral Appointment Requested Instructions Comment Monitor your [...] probiotic while on t he doxycycline - Xpreso, Loyalty Lablle, or generic . Hypertension - The patient [...] probiotic while on t he doxycycline - Xpreso, culturelle, or generic . Hypertension - The [...] old goats - musc le rub from [place] and home . Hypertension - well controlled [...] xray if symptoms do not resolve . cellulitis, tick b ite, spider bite [...]
--- OUTSIDE RECORDS SUMMARY | 2019-12-19 09:08 | XMS REPORT | CCD ---
Author Author Aniceto Lane Organization Vianney Lane MD, [facility] Address [address] [place] [address] Phone Care Team Providers Care Body Shop Technician Name Role Phone PP Unavailable CCM Unavailable Summary Purpose Interface Exchange Insurance Providers Payer name Policy type / Coverage type Covered republican ID Effective Begin Date Effective End Date [employer] Medicare Part B [id number] Unknown [facility] [employer] [facility] Medicare Part B [id number] Unknown Family history Father Diagnosis Age At Onset Cancer Unknown Mother Diagnosis Age At Onset Hypertension Unknown Hyperlipidemia Unknown Social History Social History Element Codes Description Effective Dates Marital status Unknown M arried Yelena 12/31/2014 Number of children Unknown 0 12/31/2014 Employment Unknown Retir ed 12/31/[address]: 9804544 Quit over 10 years ago 200012/31/[address]: 172152 Currently drinks alcohol 12/31/2014 Frequency of drinks SNOMED CT: 347405002 7 drinks per week 12/31/2014 Allergies, Adverse [...] Fill Instructions dapsone 100 mg tablet RxNorm: 200549 1 Tablet(s) PO daily 01/08/2019 01/14/2019 Active doxycycline hyclate 100 mg capsule RxNorm: 6779585 1 Capsule(s) PO BID 01/08/2019 01/17/2019 Ac tive Coreg 3.125 mg tablet RxNorm: 240767 1 Tablet(s) PO BID 10/08/2018 04/05/2019 Active omeprazole 20 mg cap owen,delayed release RxNorm: 170199 Capsule(s) TAKE ONE C APSULE BY MOUTH ONCE DAILY 07/09/2018 No Stop Date Active lovastatin 40 mg tablet RxNorm: 204347 Tablet(s) TAKE ONE TABLET BY MOUTH ONCE DAILY 07/09/2018 07/03/2019 Ac tive omeprazole 20 mg cap owen,delayed release RxNorm: 429488 TAKE ONE CAPSULE BY M OUTH ONCE DAILY 06/10/2018 07/08/2018 Inactive lisinopril 10 mg-hyd rochlorothiazide 12.5 mg tablet RxNorm: 088342 1 Tablet(s) PO daily 04/01/2018 2019 Active Coreg 3.125 mg tablet RxNorm: 156708 1 Tablet(s) PO BID 04/01/2018 09/27/2018 Inactive lovastatin 40 mg tablet RxNorm: 944051 Tablet(s) TAKE ONE TABLET BY MOUTH ONCE DAILY 03/11/2018 07/08/2018 Inactive lovastatin 40 mg tablet RxNorm: 982815 TAKE ONE TABLET BY MOUTH ONCE DAILY 12/17/2017 03/10/2018 In active Keflex 500 mg capsule RxNorm: 416102 1 Capsule(s) PO TID 11/01/2017 11/07/2017 Inactive doxycycline hyclate 100 mg capsule RxNorm: 2221583 1 Capsule(s) PO BID 09/11/2017 09/17/2017 In active Coreg 3.125 mg tablet RxNorm: 726392 1 Tablet(s) PO BID 09/03/2017 03/31/2018 Inactive Coreg 3.125 mg tablet RxNorm: 782296 1 Tablet(s) PO BID 09/03/2017 09/02/2017 Inactive doxycycline hyclate 100 mg capsule RxNorm: 3879662 1 Capsule(s) PO BID 08/27/2017 09/02/2017 In active lovastatin 40 mg tablet RxNorm: 230981 1 Tablet(s) PO daily 08/08/2017 12/05/2017 Inactive omeprazole 20 mg cap owen,delayed release RxNorm: 773220 1 Capsule(s) PO daily 07/23/2017 06/09/2018 In active lisinopril 10 mg-hyd rochlorothiazide 12.5 mg tablet RxNorm: 103229 1 Tablet(s) PO daily 07/09/2017 03/31/2018 Inactive patient needs to call the office to raegan haynes fluorouracil 5 % top ical cream RxNorm: 974775 1 Gram(s) TOP BID x2 weeks ONLY 03/26/2017 04/08/2017 In active fluorouracil 5 % top ical cream RxNorm: 215909 1 Gram(s) TOP BID x2 weeks ONLY 03/26/2017 03/25/2017 In active Colcrys 0.6 mg tablet RxNorm: 762170 2 Tablet(s) PO UD 12/05/2016 No Stop Date Active 2 ta bs today then 1 tab daily x 5 days then prn gout lisinopril 10 mg-hyd rochlorothiazide 12.5 mg tablet RxNorm: 843939 1 Tablet(s) PO daily 10/12/2016 07/08/2017 Inactive Cipro 500 mg tablet RxNorm: 961529 1 Tablet(s) PO BID 10/02/2016 10/08/2016 Inactive Cipro 500 mg tablet RxNorm: 896568 1 Tablet(s) PO BID 10/02/2016 10/01/2016 Inactive lovastatin 40 mg tablet RxNorm: 869069 Tablet(s) PO 07/27/2016 08/07/2017 Inactive Cipro 500 mg tablet RxNorm: 529406 1 Tablet(s) PO BID 09/27/2015 09/26/2015 Inactive Cipro 500 mg tablet RxNorm: 927841 1 Tablet(s) PO BID 09/27/2015 10/03/2015 Inactive omeprazole 20 mg cap owen,delayed release RxNorm: 510277 1 Capsule(s) PO daily 07/06/2015 06/29/2016 In active lisinopril 10 mg-hyd rochlorothiazide 12.5 mg tablet RxNorm: 031555 1 Tablet(s) PO daily 07/06/2015 10/03/2015 Inactive lovastatin 40 mg tablet RxNorm: 595589 Tablet(s) PO 12/31/2014 07/26/2016 Inactive lisinopril 10 mg-hyd rochlorothiazide 12.5 mg tablet RxNorm: 544541 1 Tablet(s) PO daily 12/31/2014 03/30/2015 Inactive Ocuvite oral RxNorm: 560734 oral No Start Date Active aspirin 81 mg tablet ,delayed release RxNorm: 271357 1 Tablet(s) PO daily No Start Date Active Prilosec oral RxNorm: 7646 oral No Start Date 12/07/2015 Inactive lovastatin oral RxNorm: 189278 oral No Start Date 12/30/2014 Inactive Medication [...] 31.3 pg 08/27/2017 Cbc With Differential Ord2 Darke% 12.7 % 08/27/2017 Cbc With Differential Ord2 [...] 1.75 K/ul 08/27/2017 Cbc With Differential Ord2 Darke ABS# 0.8 K/ul 08/27/2017 Cbc With Differential Ord2 Eos ABS# 0.1 K/ul 08/27/2017 Cbc With Differential Ord2 Baso ABS# 0.0 K/ul 08/27/2017 Lipid Ord30 CHOL 170 mg/dL 08/27/2017 Lipid Ord30 HDL 52.0 mg/dl 08/27/2017 Lipid Ord30 TRIG 106 mg/dL 08/27/2017 Lipid Ord30 LDL 97 mg/dL 08/27/2017 Lipid Ord30 C/HDL 3.3 Ratio 08/27/2017 Total Psa Ord10 PSA 1.09 ng/mL 08/27/2017 Comp Metabolic Jrj582 NA 136 mEq/L 08/27/2017 Comp Metabolic Evb241 K 4.2 mEq/L 08/27/2017 Comp Metabolic Nvj655 CL 98 mEq/L 08/27/2017 Comp Metabolic Czw243 CO2 26.0 mEq/L 08/27/2017 Comp Metabolic Vax582 AN ION GAP 16 08/27/2017 Comp Metabolic Fbw996 GL UCOSE 119 mg/dL 08/27/2017 Comp Metabolic Mvm951 Cr eat 1.2 mg/dL 08/27/2017 Comp Metabolic Irj701 eG FR 67 ml/min/1.73m2 08/27 Comp Metabolic Hqj483 BUN 14 mg/dL 08/27/2017 Comp Metabolic Smb268 B/ C Ratio 12.2 Ratio 08/27/2017 Comp Metabolic Dwu737 CA LCIUM 9.5 mg/dL 08/27/2017 Comp Metabolic Ijp347 AL K PHOS 60 U/L 08/27/2017 Comp Metabolic Lpb501 T(SGOT) 40 U/L 08/27/2017 Comp Metabolic Ejo261 AL T(SGPT) 40 U/L 08/27/2017 Comp Metabolic Twu440 BI LI T 0.6 mg/dL 08/27/2017 Comp Metabolic Qvd900 AL BUMIN 4.4 g/dL 08/27/2017 Comp Metabolic Fxp789 TP RO 6.9 g/dL 08/27/2017 Comp Metabolic Khf540 GL OB 2.5 g/dL 08/27/2017 Comp Metabolic Zqu357 A/ G Ratio 1.7 Ratio 08/27/2017 Comp Metabolic Kms447 Os mo 274 mOsmo 08/27/2017 Comp Metabolic Jog978 NA 137 mEq/L 01/23/2017 Comp Metabolic Iuf826 K 4.7 mEq/L 01/23/2017 Comp Metabolic Jtv899 CL 99 mEq/L 01/23/2017 Comp Metabolic Atf111 CO2 30.0 mEq/L 01/23/2017 Comp Metabolic Bkk193 AN ION GAP 13 01/23/2017 Comp Metabolic Yaj230 GL UCOSE 92 mg/dL 01/23/2017 Comp Metabolic Zij510 Cr eat 1.0 mg/dL 01/23/2017 Comp Metabolic Ahj741 eG FR 77 ml/min/1.73m2 01/23 Comp Metabolic Gdi607 BUN 13 mg/dL 01/23/2017 Comp Metabolic Woz530 B/ C Ratio 12.7 Ratio 01/23/2017 Comp Metabolic Qjq815 CA LCIUM 9.3 mg/dL 01/23/2017 Comp Metabolic Pyn652 AL K PHOS 56 U/L 01/23/2017 Comp Metabolic Xlo566 T(SGOT) 26 U/L 01/23/2017 Comp Metabolic Knr296 AL T(SGPT) 25 U/L 01/23/2017 Comp Metabolic Ojx809 BI LI T 0.5 mg/dL 01/23/2017 Comp Metabolic Noa665 AL BUMIN 4.2 g/dL 01/23/2017 Comp Metabolic Lci968 TP RO 6.9 g/dL 01/23/2017 Comp Metabolic Qwd726 GL OB 2.7 g/dL 01/23/2017 Comp Metabolic Anz394 A/ G Ratio 1.5 Ratio 01/23/2017 Comp Metabolic Vmy509 Os mo 274 mOsmo 01/23/2017 Cbc With [...] 31.5 pg 12/05/2016 Cbc With Differential Ord2 Darke% 13.0 % 12/05/2016 Cbc With Differential Ord2 [...] 1.65 K/ul 12/05/2016 Cbc With Differential Ord2 Darke ABS# 1.1 K/ul 12/05/2016 Cbc With Differential Ord2 Eos ABS# 0.2 K/ul 12/05/2016 Cbc With Differential Ord2 Baso ABS# 0.0 K/ul 12/05/2016 Uric Acid Ord77 Uric A 6.5 mg/dL 12/05/2016 Comp Metabolic Lsf321 NA 136 mEq/L 12/05/2016 Comp Metabolic Iho240 K 4.4 mEq/L 12/05/2016 Comp Metabolic Omh334 CL 99 mEq/L 12/05/2016 Comp Metabolic Aws172 CO2 28.0 mEq/L 12/05/2016 Comp Metabolic Ttf300 AN ION GAP 13 12/05/2016 Comp Metabolic Xkq445 GL UCOSE 84 mg/dL 12/05/2016 Comp Metabolic Zxj245 Cr eat 1.0 mg/dL 12/05/2016 Comp Metabolic Uho575 eG FR 84 ml/min/1.73m2 12/05 Comp Metabolic Zpw837 BUN 14 mg/dL 12/05/2016 Comp Metabolic Fac028 B/ C Ratio 14.7 Ratio 12/05/2016 Comp Metabolic Deh153 CA LCIUM 9.0 mg/dL 12/05/2016 Comp Metabolic Nzs641 AL K PHOS 55 U/L 12/05/2016 Comp Metabolic Ifj237 T(SGOT) 26 U/L 12/05/2016 Comp Metabolic Nre410 AL T(SGPT) 25 U/L 12/05/2016 Comp Metabolic Avv555 BI LI T 0.4 mg/dL 12/05/2016 Comp Metabolic Peh285 AL BUMIN 4.1 g/dL 12/05/2016 Comp Metabolic Gtl179 TP RO 6.8 g/dL 12/05/2016 Comp Metabolic Qpo433 GL OB 2.7 g/dL 12/05/2016 Comp Metabolic Wpv165 A/ G Ratio 1.5 Ratio 12/05/2016 Comp Metabolic Jyl830 Os mo 272 mOsmo 12/05/2016 Comp Metabolic Vum333 NA 136 mEq/L 11/13/2016 Comp Metabolic Xbo680 K 4.2 mEq/L 11/13/2016 Comp Metabolic Qwo743 CL 98 mEq/L 11/13/2016 Comp Metabolic Xkl519 CO2 29.0 mEq/L 11/13/2016 Comp Metabolic Vbf110 AN ION GAP 13 11/13/2016 Comp Metabolic Rpi169 GL UCOSE 94 mg/dL 11/13/2016 Comp Metabolic Knm085 Cr eat 1.0 mg/dL 11/13/2016 Comp Metabolic Uiu756 eG FR 78 ml/min/1.73m2 11/13 Comp Metabolic Cuj017 BUN 12 mg/dL 11/13/2016 Comp Metabolic Zsd777 B/ C Ratio 11.9 Ratio 11/13/2016 Comp Metabolic Qdk582 CA LCIUM 9.4 mg/dL 11/13/2016 Comp Metabolic Ajd536 AL K PHOS 56 U/L 11/13/2016 Comp Metabolic Fto339 T(SGOT) 25 U/L 11/13/2016 Comp Metabolic Upx872 AL T(SGPT) 25 U/L 11/13/2016 Comp Metabolic Teh595 BI LI T 0.6 mg/dL 11/13/2016 Comp Metabolic Oyr223 AL BUMIN 4.2 g/dL 11/13/2016 Comp Metabolic Qsc425 TP RO 6.7 g/dL 11/13/2016 Comp Metabolic Pge934 GL OB 2.5 g/dL 11/13/2016 Comp Metabolic Srn014 A/ G Ratio 1.6 Ratio 11/13/2016 Comp Metabolic Uox120 Os mo 271 mOsmo 11/13/2016 Urine Culture [...] 31.2 pg 06/12/2016 Cbc With Differential Ord2 Darke% 15.1 % 06/12/2016 Cbc With Differential Ord2 [...] 1.66 K/ul 06/12/2016 Cbc With Differential Ord2 Darke ABS# 1.1 K/ul 06/12/2016 Cbc With Differential Ord2 Eos ABS# 0.2 K/ul 06/12/2016 Cbc With Differential Ord2 Baso ABS# 0.1 K/ul 06/12/2016 Comp Metabolic Gqu137 NA 132 mEq/L 06/12/2016 Comp Metabolic Kgs956 K 4.2 mEq/L 06/12/2016 Comp Metabolic Lxt076 CL 97 mEq/L 06/12/2016 Comp Metabolic Esn492 CO2 28.0 mEq/L 06/12/2016 Comp Metabolic Nkr331 AN ION GAP 11 06/12/2016 Comp Metabolic Dob911 GL UCOSE 98 mg/dL 06/12/2016 Comp Metabolic Ixs779 Cr eat 1.0 mg/dL 06/12/2016 Comp Metabolic Wtv910 eG FR 78 ml/min/1.73m2 06/12 Comp Metabolic Pon196 BUN 12 mg/dL 06/12/2016 Comp Metabolic Vlb831 B/ C Ratio 11.9 Ratio 06/12/2016 Comp Metabolic Rrs135 CA LCIUM 9.2 mg/dL 06/12/2016 Comp Metabolic Hag615 AL K PHOS 58 U/L 06/12/2016 Comp Metabolic Srt579 T(SGOT) 23 U/L 06/12/2016 Comp Metabolic Cvs277 AL T(SGPT) 22 U/L 06/12/2016 Comp Metabolic Xin311 BI LI T 0.6 mg/dL 06/12/2016 Comp Metabolic Cxl359 AL BUMIN 4.2 g/dL 06/12/2016 Comp Metabolic Kuo457 TP RO 6.8 g/dL 06/12/2016 Comp Metabolic Sas597 GL OB 2.6 g/dL 06/12/2016 Comp Metabolic Nmq246 A/ G Ratio 1.6 Ratio 06/12/2016 Comp Metabolic Zhr973 Os mo 264 mOsmo 06/12/2016 Tsh Ord6 hTSH II 2.41 uIU/mL 12/21/2015 Comp Metabolic Sgo460 NA 135 mEq/L 12/21/2015 Comp Metabolic Ygc753 K 4.2 mEq/L 12/21/2015 Comp Metabolic Nlu432 CL 98 mEq/L 12/21/2015 Comp Metabolic Igu153 CO2 29.0 mEq/L 12/21/2015 Comp Metabolic Jxr993 AN ION GAP 12 12/21/2015 Comp Metabolic Aue870 GL UCOSE 99 mg/dL 12/21/2015 Comp Metabolic Pvd061 Cr eat 1.1 mg/dL 12/21/2015 Comp Metabolic Ilc430 eG FR 70 ml/min/1.73m2 12/20 Comp Metabolic Xmg454 BUN 17 mg/dL 12/21/2015 Comp Metabolic Whl837 B/ C Ratio 15.2 Ratio 12/21/2015 Comp Metabolic Iwv036 CA LCIUM 9.1 mg/dL 12/21/2015 Comp Metabolic Eop978 AL K PHOS 60 U/L 12/21/2015 Comp Metabolic Opr967 T(SGOT) 23 U/L 12/21/2015 Comp Metabolic Hmf373 AL T(SGPT) 22 U/L 12/21/2015 Comp Metabolic Kig911 BI LI T 0.6 mg/dL 12/21/2015 Comp Metabolic Glm282 AL BUMIN 4.3 g/dL 12/21/2015 Comp Metabolic Xwp834 TP RO 7.0 g/dL 12/21/2015 Comp Metabolic Rmm920 GL OB 2.8 g/dL 12/21/2015 Comp Metabolic Fyi603 A/ G Ratio 1.5 Ratio 12/21/2015 Comp Metabolic Cvg560 Os mo 272 mOsmo 12/21/2015 Cbc With [...] 30.5 pg 12/21/2015 Cbc With Differential Ord2 Darke% 15.3 % 12/21/2015 Cbc With Differential Ord2 [...] 1.58 K/ul 12/21/2015 Cbc With Differential Ord2 Darke ABS# 1.0 K/ul 12/21/2015 Cbc With Differential [...] inspection of skin Location: face 05/16/2018 right roman catholic Full Exam - Dermatology Constitutional general appearance [...] palp - head/face Location: on the right roman catholic 03/11/2018 None Full Exam - Dermatology Integument [...] Date URINALYSIS NONAUTO W /O SCOPE CPT-4: 77501 10/02/2016 URINALYSIS NONAUTO W /O SCOPE CPT-4: 37924 09/27/2015 Vital Signs Date Vital 01/08/2019 Blood Pressure 1: 148/68 Code: 8480-6 BMI: 29.1 Code: 95432-6 Heart Rate 1: 95 bpm Height: 5'10" SpO2: 98% Weight: 203 lbs 05/16/2018 Blood Pressure 1: 144/84 Code: 8480-6 BMI: 29.3 Code: 25826-4 Heart Rate 1: 71 bpm Height: 5'10" SpO2: 98% Weight: 204 lbs 03/11/2018 Blood Pressure 1: 126/74 Code: 8480-6 BMI: 29.3 Code: 51100-1 Heart Rate 1: 84 bpm Height: 5'10" SpO2: 97% Weight: 204 lbs 01/25/2018 Blood Pressure 1: 134/80 Code: 8480-6 BMI: 29.3 Code: 48720-2 Heart Rate 1: 86 bpm Height: 5'10" SpO2: 97% Weight: 204 lbs 11/01/2017 Blood Pressure 1: 130/80 Code: 8480-6 BMI: 28.6 Code: 06857-8 Heart Rate 1: 72 bpm Height: 5'10" SpO2: 98% Temperature: 36.5 (C ) / 97.7 (F) Weight: 199 lbs 09/11/2017 Blood Pressure 1: 128/80 Code: 8480-6 Heart Rate 1: 72 bpm Height: 5'10" SpO2: 99% Weight: 08/27/2017 Blood Pressure 1: 126/70 Code: 8480-6 BMI: 29.8 Code: 41016-0 Heart Rate 1: 107 bpm Height: 5'10" SpO2: 96% Weight: 208 lbs 12/05/2016 Blood Pressure 1: 140/78 Code: 8480-6 BMI: 28.6 Code: 22155-5 Heart Rate 1: 98 bpm Height: 5'10" SpO2: 96% Weight: 199 lbs 06/06/2016 Blood Pressure 1: 142/80 Code: 8480-6 BMI: 28.7 Code: 48857-9 Heart Rate 1: 95 bpm Height: 5'10" SpO2: 97% Weight: 200 lbs 12/07/2015 Blood Pressure 1: 132/78 Code: 8480-6 BMI: 28.6 Code: 00660-9 Heart Rate 1: 81 bpm Height: 5'10" SpO2: 97% Weight: 199 lbs 06/29/2015 Blood Pressure 1: 118/76 Code: 8480-6 BMI: 28.7 Code: 46367-7 Heart Rate 1: 98 bpm Height: 5'10" SpO2: 98% Weight: 200 lbs 12/31/2014 Blood Pressure 1: 132/72 Code: 8480-6 BMI: 28.6 Code: 67220-2 Heart Rate 1: 75 bpm Height: 5'10" [...] fever 03/11/2018 None Hospital Follow Up _ [facility] er: kidney stone 01/25/2018 None Hospital [...] Episodes years 12/31/2014 he worked on the [employer] and has had ear damage from no hearing protection Advance Directives No Advance Directive data Encounters Encounter Performer Loca tion Codes Date EST. PATIENT, LEVEL III Diagnosis: Cellulitis of left lower limb[ICD10: L03.116] Diagnosis: Bitten or stung by nonvenomous insect and other nonvenomous arthropods, initial encounter[ICD10: W57.XXXA] [facility] CPT-4: 09029 01/08/2019 ([id number]) 81133 EST. P ATIENT, LEVEL III Diagnosis: Acute upper respiratory infection, unspecified[ICD10: J06.9] Diagnosis: Actinic keratosis[ICD10: L57.0] [facility] CPT- 4: 60340 05/16/2018 [id number] EST. PATIENT, LEVEL III Diagnosis: Actinic keratosis[ICD10: L57.0] Diagnosis: Basal cell carcinoma of skin of other parts of face[ICD10: C44.319] [facility] CPT-4: 04325 03/11/2018 [id number] EST. PATIENT, LEVEL III Diagnosis: Encounter for follow-up examination after completed treatment for conditions other than malignant neoplasm[ICD10: Z09] [facility] CPT-4: 71283 01/25/2018 ([id number]) 73528 EST. P ATIENT, LEVEL III Diagnosis: Acute recurrent maxillary sinusitis[ICD10: J01.01] Diagnosis: Cough[ICD10: R05] Aydee Lane MD, [facility] CPT-4: 92791 11/01/2017 [id number] EST. PATIENT, LEVEL III Diagnosis: Olecranon bursitis, left elbow[ICD10: M70.22] Kati Lane MD, [facility] CPT-4: 06216 09/11/2017 ([id number]) Miscellaneou s no charge Diagnosis: Essential (primary) hypertension[ICD10: I10] Vianney Lane [facility] CPT-4: 83824 09/03/2017 95735 EST. PATIENT, LEVEL IV Diagnosis: Essential (primary) hypertension[ICD10: I10] Diagnosis: Bitten by dog, initial encounter[ICD10: W54.0XXA] Kati Lane MD, [facility] CPT-4: 63869 08/27/2017 ([id number]) 03445 EST. 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 P ATIENT, LEVEL IV Diagnosis: Essential (primary) hypertension[ICD10: I10] Diagnosis: Mixed hyperlipidemia[ICD10: E78.2] Diagnosis: Personal history of other malignant neoplasm of bronchus and lung[ICD10: Z85.118] Diagnosis: Diseases of lips[ICD10: K13.0] Vianney Lane MD, [facility] CPT-4: 06923 06/06/2016 ([id number]) 20137 EST. P ATIENT, LEVEL IV Diagnosis: Essential (primary) hypertension[ICD10: I10] Diagnosis: Mixed hyperlipidemia[ICD10: E78.2] Diagnosis: Bicipital tendinitis, right shoulder[ICD10: M75.21] Vianney Lane [facility] CPT-4: 01560 12/07/2015 ([id number]) 06361 EST. P ATIENT, LEVEL IV Diagnosis: Essential (primary) hypertension[ICD10: I10] Diagnosis: Pain in right shoulder[ICD10: M25.511] [facility] CPT-4: 93772 06/29/2015 ([id number]) OFFICE VISI T, NEW - LEVEL 4 Diagnosis: ESSENTIAL HYPERTENSION[ICD9: 401.9] Diagnosis: HYPERLIPIDEMIA[ICD9: 272.4] [facility] CPT-4: 73156 12/31/2014 Plan of Care Planned Activity Notes [...] in pain, worsening redness, warmth, discharge. 01/08/2019 Patient Education: Patient Medication Summary Completed 01/08/2019 Visit Plan: URI - Pt advised to inc rease fluids, vitamin C. Discussed natural and expected course of this diagnosis and need to alert me if symptoms do not follow expected course, or if any worse. AK-cryotherapy today in the office 05/16/2018 Appointment: Aydee Gallardo WPtel: [phone] (15 min) Moderate 05/16/2018 Patient Education: [...] acute concerns. 03/11/2018 Appointment: Kati Appiah WPtel: [facility] (15 min) Moderate 03/11/2018 Patient Education: Patient Medication Summary Completed 03/11/2018 Visit Plan: ER follow up - symptoms resolved at this time - will call for ER report - pt is to notify clinic if symptoms do not improve, if they worsen, or with any changes, questions, or concerns. 01/25/2018 Appointment: Kati Appiah WPtel: [facility] (15 min) Moderate 01/25/2018 Patient Education: Patient Medication Summary Completed 01/25/2018 Visit Plan: Sinusitis - Pt has acut e infection - pain in face, maxillary region, Pt informed to use decongestant, RX given to patient, sinus rinses also recommended. Call if symptoms do not show improvement. Cough- history lung ca-discussed chest xray if symptoms do not resolve 11/01/2017 Appointment: Aydee Gallardo WPtel: [phone] (15 min) Moderate 11/01/2017 Patient Education: Patient Medication Summary Completed 11/01/2017 Visit Plan: Bursitis - after dog bi te - will send RX - pt to do exercises as directed - stretching, anti-inflammatories to be started after 24 hours, and pt to use heat to the affected sites, pt to call if not improving. 09/11/2017 Appointment: Kati Appiah WPtel: [facility] (30 min) Complex 09/11/2017 Patient Education: [...] acute concerns. 08/27/2017 Appointment: Kati Appiah WPtel: [facility] (15 min) Moderate 08/27/2017 Patient Education: Patient [...] when available. 12/05/2016 Appointment: Aydee Gallardo WPtel: [address] [place], [place] [phone] (30 min) Complex 12/05/2016 Patient Education: Patient Medication Summary Completed 12/05/2016 Appointment: Aydee Gallardo WPtel: [address] [place], [place] [phone] (30 min) Complex 12/04/2016 Appointment: Lab Draw 10/02/2016 Patient Education: Patient Medication Summary Completed 10/02/2016 Referral: Austin Li [address] Patient informed. Referral info faxed. Completed [...] to pt 06/06/2016 [phone] (15 min) Moderate 06/06/2016 Patient Education: Patient Medication Summary Completed 06/06/2016 Patient Education: Hypertension Completed 06/06/2016 Care Plan: Referral Order SNOMED-CT : [id number] Pending 06/06/2016 Visit Plan: Hypertension - well [...] improved. 12/07/2015 [facility]ment[phone] (15 min) Moderate 12/07/2015 Patient Education: [...] to medications. 12/31/2014 Appointment: Vianney Lane WPtel: [address] [place], [place] [id number] [place] ([place]) New Patient 12/31/2014 Patient Education: Patient Medication Summary Completed 12/31/2014 Patient Education: Hypertension Completed 12/31/2014 Referral: Austin Li [facility] Referral Appointment Requested Instructions Comment Monitor your [...] probiotic while on t he doxycycline - ZIOPHARM Oncology, culturelle, or generic . Hypertension - The [...] old goats - musc le rub from [employer] and home . Hypertension - well controlled [...]
--- OUTSIDE RECORDS SUMMARY | 2019-12-19 09:08 | XMS REPORT | CCD ---
Author Author Aniceto Lane Organization Vianney Lane MD, [facility] Address [address] [place] [address] Phone Care Team Providers Care Club Waiter/Waitress Name Role Phone PP Unavailable CCM Unavailable Summary Purpose Interface Exchange Insurance Providers Payer name Policy type / Coverage type Covered constitution party ID Effective Begin Date Effective End Date [employer] [employer] Medicare Part B [id number] Unknown Unknown [facility] [employer] [facility] Medicare Part B [id number] Unknown Unkn own Family history Father Diagnosis Age At Onset Cancer Unknown Mother Diagnosis Age At Onset Hypertension Unknown Hyperlipidemia Unknown Social History Social History Element Codes Description Effective Dates Marital status Unknown M arried Yelena 12/31/2014 Number of children Unknown 0 12/31/2014 Employment Unknown Retir ed 12/31/[address]: 6079579 Quit over 10 years ago 200012/31/[address]: 525407 Currently drinks alcohol 12/31/2014 Frequency of drinks SNOMED CT: 999709294 7 drinks per week 12/31/2014 Allergies, Adverse [...] Condition Codes Effectiv e Dates Condition Status Essential (primary) hypertension ICD-9: [...] Date Stop Date Sta tus Fill Instructions Colcrys 0.6 mg tablet RxNorm: 312045 2 Tablet(s) PO UD 12/05/2016 No Stop Date Active 2 ta bs today then 1 tab daily x 5 days then prn gout lisinopril 10 mg-hyd rochlorothiazide 12.5 mg tablet RxNorm: 055555 1 Tablet(s) PO daily 10/12/2016 07/08/2017 Active Cipro 500 mg tablet RxNorm: 271678 1 Tablet(s) PO BID 10/02/2016 10/08/2016 Inactive Cipro 500 mg tablet RxNorm: 880271 1 Tablet(s) PO BID 10/02/2016 10/01/2016 Inactive lovastatin 40 mg tablet RxNorm: 785439 Tablet(s) PO 07/27/2016 No Stop Date Active Cipro 500 mg tablet RxNorm: 410970 1 Tablet(s) PO BID 09/27/2015 09/26/2015 Inactive Cipro 500 mg tablet RxNorm: 702785 1 Tablet(s) PO BID 09/27/2015 10/03/2015 Inactive omeprazole 20 mg cap owen,delayed release RxNorm: 892460 1 Capsule(s) PO daily 07/06/2015 06/29/2016 In active lisinopril 10 mg-hyd rochlorothiazide 12.5 mg tablet RxNorm: 061856 1 Tablet(s) PO daily 07/06/2015 10/03/2015 Inactive lovastatin 40 mg tablet RxNorm: 691000 Tablet(s) PO 12/31/2014 07/26/2016 Inactive lisinopril 10 mg-hyd rochlorothiazide 12.5 mg tablet RxNorm: 126611 1 Tablet(s) PO daily 12/31/2014 03/30/2015 Inactive Ocuvite oral RxNorm: 836391 oral No Start Date Active aspirin 81 mg tablet ,delayed release RxNorm: 588550 1 Tablet(s) PO daily No Start Date Active Prilosec oral RxNorm: 7646 oral No Start Date 12/07/2015 Inactive lovastatin oral RxNorm: 755549 oral No Start Date 12/30/2014 Inactive Medication Administered No Medication Administered data Immunizations Vaccine Codes Date Status Influenza CVX: 141 05/18 completed Assessments Condition Codes Effectiv e Dates Idiopathic gout, left ankle and foot ICD-10: M10.072 ICD-9: 274.9 12/05/2016 Essential (primary) hypertension ICD -10: I10 ICD-9: 401.9 12/05/2016 Dysuria ICD-10: R30.0 [...] Observation Code Item Item Code Result Date Comp Metabolic Djl534 NA 137 mEq/L 01/23/2017 Comp Metabolic Oyv315 K 4.7 mEq/L 01/23/2017 Comp Metabolic Jgm981 CL 99 mEq/L 01/23/2017 Comp Metabolic Lje398 CO2 30.0 mEq/L 01/23/2017 Comp Metabolic Dyv503 AN ION GAP 13 01/23/2017 Comp Metabolic Iji794 GL UCOSE 92 mg/dL 01/23/2017 Comp Metabolic Vsu664 Cr eat 1.0 mg/dL 01/23/2017 Comp Metabolic Aiq796 eG FR 77 ml/min/1.73m2 01/23 Comp Metabolic Eec833 BUN 13 mg/dL 01/23/2017 Comp Metabolic Oim108 B/ C Ratio 12.7 Ratio 01/23/2017 Comp Metabolic Aak041 CA LCIUM 9.3 mg/dL 01/23/2017 Comp Metabolic Irc727 AL K PHOS 56 U/L 01/23/2017 Comp Metabolic Qjj641 T(SGOT) 26 U/L 01/23/2017 Comp Metabolic Kiv592 AL T(SGPT) 25 U/L 01/23/2017 Comp Metabolic Kmb358 BI LI T 0.5 mg/dL 01/23/2017 Comp Metabolic Eci891 AL BUMIN 4.2 g/dL 01/23/2017 Comp Metabolic Qaz856 TP RO 6.9 g/dL 01/23/2017 Comp Metabolic Bfy598 GL OB 2.7 g/dL 01/23/2017 Comp Metabolic Uuq706 A/ G Ratio 1.5 Ratio 01/23/2017 Comp Metabolic Ffb744 Os mo 274 mOsmo 01/23/2017 Cbc With [...] 91.3 fl 12/05/2016 Cbc With Differential Ord2 [place]% 13.0 % 12/05/2016 Cbc With Differential Ord2 [...] 1.65 K/ul 12/05/2016 Cbc With Differential Ord2 [place] ABS# 1.1 K/ul 12/05/2016 Cbc With Differential Ord2 Eos ABS# 0.2 K/ul 12/05/2016 Cbc With Differential Ord2 Baso ABS# 0.0 K/ul 12/05/2016 Uric Acid Ord77 Uric A 6.5 mg/dL 12/05/2016 Comp Metabolic Nja938 NA 136 mEq/L 12/05/2016 Comp Metabolic Oup792 K 4.4 mEq/L 12/05/2016 Comp Metabolic Wgj210 CL 99 mEq/L 12/05/2016 Comp Metabolic Img629 CO2 28.0 mEq/L 12/05/2016 Comp Metabolic Gon350 AN ION GAP 13 12/05/2016 Comp Metabolic Srg703 GL UCOSE 84 mg/dL 12/05/2016 Comp Metabolic Ohq399 Cr eat 1.0 mg/dL 12/05/2016 Comp Metabolic Ves750 eG FR 84 ml/min/1.73m2 12/05 Comp Metabolic Lwm971 BUN 14 mg/dL 12/05/2016 Comp Metabolic Lht478 B/ C Ratio 14.7 Ratio 12/05/2016 Comp Metabolic Rhx198 CA LCIUM 9.0 mg/dL 12/05/2016 Comp Metabolic Rnq022 AL K PHOS 55 U/L 12/05/2016 Comp Metabolic Iqu374 T(SGOT) 26 U/L 12/05/2016 Comp Metabolic Duc017 AL T(SGPT) 25 U/L 12/05/2016 Comp Metabolic Eej711 BI LI T 0.4 mg/dL 12/05/2016 Comp Metabolic Tnk114 AL BUMIN 4.1 g/dL 12/05/2016 Comp Metabolic Yqw255 TP RO 6.8 g/dL 12/05/2016 Comp Metabolic Vjy192 GL OB 2.7 g/dL 12/05/2016 Comp Metabolic Twu018 A/ G Ratio 1.5 Ratio 12/05/2016 Comp Metabolic Qsf237 Os mo 272 mOsmo 12/05/2016 Comp Metabolic Aew144 NA 136 mEq/L 11/13/2016 Comp Metabolic Das782 K 4.2 mEq/L 11/13/2016 Comp Metabolic Vfs775 CL 98 mEq/L 11/13/2016 Comp Metabolic Igz194 CO2 29.0 mEq/L 11/13/2016 Comp Metabolic Uin958 AN ION GAP 13 11/13/2016 Comp Metabolic Uft248 GL UCOSE 94 mg/dL 11/13/2016 Comp Metabolic Nmz035 Cr eat 1.0 mg/dL 11/13/2016 Comp Metabolic Ris748 eG FR 78 ml/min/1.73m2 11/13 Comp Metabolic Wdb591 BUN 12 mg/dL 11/13/2016 Comp Metabolic Ugg058 B/ C Ratio 11.9 Ratio 11/13/2016 Comp Metabolic Hdn089 CA LCIUM 9.4 mg/dL 11/13/2016 Comp Metabolic Ivc019 AL K PHOS 56 U/L 11/13/2016 Comp Metabolic Oor435 T(SGOT) 25 U/L 11/13/2016 Comp Metabolic Laq875 AL T(SGPT) 25 U/L 11/13/2016 Comp Metabolic Hxo558 BI LI T 0.6 mg/dL 11/13/2016 Comp Metabolic Fjv578 AL BUMIN 4.2 g/dL 11/13/2016 Comp Metabolic Rtm833 TP RO 6.7 g/dL 11/13/2016 Comp Metabolic Inx943 GL OB 2.5 g/dL 11/13/2016 Comp Metabolic Szk503 A/ G Ratio 1.6 Ratio 11/13/2016 Comp Metabolic Rob223 Os mo 271 mOsmo 11/13/2016 Urine Culture [...] 22.0 % 06/12/2016 Cbc With Differential Ord2 [place]% 15.1 % 06/12/2016 Cbc With Differential Ord2 [...] 1.66 K/ul 06/12/2016 Cbc With Differential Ord2 [place] ABS# 1.1 K/ul 06/12/2016 Cbc With Differential Ord2 Eos ABS# 0.2 K/ul 06/12/2016 Cbc With Differential Ord2 Baso ABS# 0.1 K/ul 06/12/2016 Comp Metabolic Vux789 NA 132 mEq/L 06/12/2016 Comp Metabolic Kok705 K 4.2 mEq/L 06/12/2016 Comp Metabolic Wey942 CL 97 mEq/L 06/12/2016 Comp Metabolic Sjv513 CO2 28.0 mEq/L 06/12/2016 Comp Metabolic Nxv139 AN ION GAP 11 06/12/2016 Comp Metabolic Kmi535 GL UCOSE 98 mg/dL 06/12/2016 Comp Metabolic Mhv844 Cr eat 1.0 mg/dL 06/12/2016 Comp Metabolic Qrn466 eG FR 78 ml/min/1.73m2 06/12 Comp Metabolic Emy684 BUN 12 mg/dL 06/12/2016 Comp Metabolic Kkj773 B/ C Ratio 11.9 Ratio 06/12/2016 Comp Metabolic Elf045 CA LCIUM 9.2 mg/dL 06/12/2016 Comp Metabolic Ind491 AL K PHOS 58 U/L 06/12/2016 Comp Metabolic Iiy618 T(SGOT) 23 U/L 06/12/2016 Comp Metabolic Kli585 AL T(SGPT) 22 U/L 06/12/2016 Comp Metabolic Ptk726 BI LI T 0.6 mg/dL 06/12/2016 Comp Metabolic Rfu938 AL BUMIN 4.2 g/dL 06/12/2016 Comp Metabolic Wmp866 TP RO 6.8 g/dL 06/12/2016 Comp Metabolic Zkz374 GL OB 2.6 g/dL 06/12/2016 Comp Metabolic Rqi968 A/ G Ratio 1.6 Ratio 06/12/2016 Comp Metabolic Utf715 Os mo 264 mOsmo 06/12/2016 Tsh Ord6 hTSH II 2.41 uIU/mL 12/21/2015 Comp Metabolic Egn527 NA 135 mEq/L 12/21/2015 Comp Metabolic Iae892 K 4.2 mEq/L 12/21/2015 Comp Metabolic Hoo543 CL 98 mEq/L 12/21/2015 Comp Metabolic Sok228 CO2 29.0 mEq/L 12/21/2015 Comp Metabolic Ukg338 AN ION GAP 12 12/21/2015 Comp Metabolic Yos479 GL UCOSE 99 mg/dL 12/21/2015 Comp Metabolic Hqw291 Cr eat 1.1 mg/dL 12/21/2015 Comp Metabolic Nfd640 eG FR 70 ml/min/1.73m2 12/20 Comp Metabolic Vbm842 BUN 17 mg/dL 12/21/2015 Comp Metabolic Nys706 B/ C Ratio 15.2 Ratio 12/21/2015 Comp Metabolic Fik025 CA LCIUM 9.1 mg/dL 12/21/2015 Comp Metabolic Cxh530 AL K PHOS 60 U/L 12/21/2015 Comp Metabolic Khw447 T(SGOT) 23 U/L 12/21/2015 Comp Metabolic Obm628 AL T(SGPT) 22 U/L 12/21/2015 Comp Metabolic Owd259 BI LI T 0.6 mg/dL 12/21/2015 Comp Metabolic Nsn090 AL BUMIN 4.3 g/dL 12/21/2015 Comp Metabolic Gwf998 TP RO 7.0 g/dL 12/21/2015 Comp Metabolic Rjy923 GL OB 2.8 g/dL 12/21/2015 Comp Metabolic Isd301 A/ G Ratio 1.5 Ratio 12/21/2015 Comp Metabolic Odz583 Os mo 272 mOsmo 12/21/2015 Cbc With [...] 30.5 pg 12/21/2015 Cbc With Differential Ord2 [place]% 15.3 % 12/21/2015 Cbc With Differential Ord2 [...] 1.58 K/ul 12/21/2015 Cbc With Differential Ord2 [place] ABS# 1.0 K/ul 12/21/2015 Cbc With Differential [...] Result Effective Dates Constitutional No recent illness 12/05/2016 Constitutional No [...] Date URINALYSIS NONAUTO W /O SCOPE CPT-4: 25080Facwztz 10/02/2016 URINALYSIS NONAUTO W /O SCOPE CPT-4: 86693Oaebczh 09/27/2015 Vital Signs Date Vital 12/05/2016 Blood Pressure 1: 140/78 Code: 8480-6 BMI: 28.6 Code: 85801-7 Heart Rate 1: 98 bpm Height: 5'10" SpO2: 96% Weight: 199 lbs 06/06/2016 Blood Pressure 1: 142/80 Code: 8480-6 BMI: 28.7 Code: 80353-7 Heart Rate 1: 95 bpm Height: 5'10" SpO2: 97% Weight: 200 lbs 12/07/2015 Blood Pressure 1: 132/78 Code: 8480-6 BMI: 28.6 Code: 47631-5 Heart Rate 1: 81 bpm Height: 5'10" SpO2: 97% Weight: 199 lbs 06/29/2015 Blood Pressure 1: 118/76 Code: 8480-6 BMI: 28.7 Code: 18667-4 Heart Rate 1: 98 bpm Height: 5'10" SpO2: 98% Weight: 200 lbs 12/31/2014 Blood Pressure 1: 132/72 Code: 8480-6 BMI: 28.6 Code: 79420-3 Heart Rate 1: 75 bpm Height: 5'10" SpO2: 95% Weight: 199 lbs Functional Status No Functional Status data History of Present Illness Symptom Name Status Resu lt Effective Date Notes hypertension Onset and Resolution [...] Episodes years 12/31/2014 he worked on the [employer] and has had ear damage from no hearing protection Advance Directives No Advance Directive data Encounters Encounter Performer Loca tion Codes Date () 21059 EST. P ATIENT, LEVEL III Diagnosis: Essential (primary) hypertension[ICD10: I10] Diagnosis: Idiopathic gout, left ankle and foot[ICD10: M10.072] Aydee Lane MD, [facility] CPT-4: 05655 12/05/2016 ([id number]) 50825 EST. P ATIENT, LEVEL IV Diagnosis: Essential (primary) hypertension[ICD10: I10] Diagnosis: Mixed hyperlipidemia[ICD10: E78.2] Diagnosis: Personal history of other malignant neoplasm of bronchus and lung[ICD10: Z85.118] Diagnosis: Diseases of lips[ICD10: K13.0] Vianney Lane MD, [facility] CPT-4: 13794 06/06/2016 ([id number]) 72277 EST. P ATIENT, LEVEL IV Diagnosis: Essential (primary) hypertension[ICD10: I10] Diagnosis: Mixed hyperlipidemia[ICD10: E78.2] Diagnosis: Bicipital tendinitis, right shoulder[ICD10: M75.21] Vianney Lane MD, [facility] CPT-4: 23699 12/07/2015 ([id number]) 33496 EST. P ATIENT, LEVEL IV Diagnosis: Essential (primary) hypertension[ICD10: I10] Diagnosis: Pain in right shoulder[ICD10: M25.511] [facility] CPT-4: 27474 06/29/2015 ([id number]) OFFICE VISI T, [facility] - LEVEL 4 Diagnosis: ESSENTIAL HYPERTENSION[ICD9: 401.9] Diagnosis: HYPERLIPIDEMIA[ICD9: 272.4] [facility] CPT-4: 49997 12/31/2014 Plan of Care Planned Activity Notes C odes Status Date Visit Plan: Hypertension - well controll ed - continue with current medications, continue with no added salt diet. Pt has been encouraged to exercise daily.The pt has been advised to call the office if there are any acute concerns about change in blood pressure readings at home.Gout Attack - pt given RX for uric Acid Level, and rx for medication for treatment of symptoms. Pt to call if symptoms do not improve, and pt to be given results of labs when available. 12/05/2016 Appointment: Aydee Gallardo WPtel: [address] [place], [place] [phone] (30 min) Complex 12/05/2016 Patient Education: Patient Medication Summary Completed 12/05/2016 Appointment: Aydee Gallardo WPtel: [address] [place], [place] [phone] (30 min) Complex 12/04/2016 Appointment: Lab Draw 10/02/2016 Patient Education: Patient Medication Summary Completed 10/02/2016 Referral: Austin Li [id number] [place] Patient informed. Referral info faxed. Completed 06/22/2016 Visit Plan: Hypertension - well controll ed - continue with current medications, continue with no added salt diet. Pt has been encouraged to exercise daily.The pt has been advised to call the office if there are any acute concerns about change in blood pressure readings at home.Hyperlipidemia - pt has been counseled about appropriate [...] and to assure normal liver response to medications.Hx of lung cancer - pt due for screening chest xraySkin lesion - left lip - referral to dr. Farnsworth is due for labs - order given to pt 2015 App[facility]ment[facility] Vianney Lane [facility] [address] [facility] (15 min) Moderate 06/06/2016 Patient Education: Patient Medication Summary Completed 06/06/2016 Patient Education: Hypertension Completed 06/06/2016 Care Plan: Referral Order SNOMED-CT : [id number] Pending 06/06/2016 Visit Plan: Hypertension - well controll ed - continue with current medications, continue with no added salt diet. Pt has been encouraged to exercise daily.The pt has been advised to call the office if there are any acute concerns about change in blood pressure readings at home.Hyperlipidemia - pt has been counseled about appropriate [...] and to assure normal liver response to medications.Biceps tendinitis - pt to do exercises as directed, ant- inflammatories OTC directed to be taken per RX instructions and pt to call if symptoms are not improved. 12/07/2015 App[facility]ment: [facility]ian[facility] [phone] [facility] (15 min) Moderate 12/07/2015 Patient Education: Patient Medication Summary Completed 12/07/2015 Appointment: Lab Draw 09/27/2015 Patient Education: Patient Medication Summary Completed 09/27/2015 Visit Plan: Hypertension - well controll ed - continue with current medications, continue with no added salt diet. Pt has been encouraged to exercise daily.The pt has been advised to call the office if there are any acute concerns about change in blood pressure readings at home.Arthritis- occasionally uncontrolled symptoms- recommend pt to take antiinflammatory as directed for pain control.Use tylenol for break through pain symptoms. 06/29/2015 Patient Education: Patient Medication Summary Completed 06/29/2015 Patient Education: Hypertension Completed 06/29/2015 Visit Plan: Hypertension - well controll ed - continue with current medications, continue with no added salt diet. Pt has been encouraged to exercise daily.The pt has been advised to call the office if there are any acute concerns about change in blood pressure readings at home.Hyperlipidemia - pt has been counseled about appropriate [...] to medications. 12/31/2014 Appointment: Vianney Lane WPtel: [facility] [place] [facility] New Patient 12/31/2014 Patient Education: Patient Medication Summary Completed 12/31/2014 Patient Education: Hypertension Completed 12/31/2014 [id number] [facility] Appointment Requested Instructions Comment Monitor your [...] liver response to medications. . Hypertension - wel l controlled - [...] given to pt two old goats - joao le rub from [email or web address] and home . Hypertension - well controlled [...] symptoms are not improved. . Hypertension - wel l controlled - [...]
--- OUTSIDE RECORDS SUMMARY | 2019-12-19 09:09 | XMS REPORT | CCD ---
Author Author Aniceto Lane Organization Vianney Lane MD, [facility] Address [address] [place] [address] Phone Care Team Providers Care Planning Official Name Role Phone PP Unavailable CCM Unavailable Summary Purpose Interface Exchange Insurance Providers Payer name Policy type / Coverage type Covered republican ID Effective Begin Date Effective End Date [place] [employer] Medicare Part B [id number] 2018 Unknown [facility] Medicare Part B [id number] Unknown Family history Father Diagnosis Age At Onset Cancer Unknown Mother Diagnosis Age At Onset Hypertension Unknown Hyperlipidemia Unknown Social History Social History Element Codes Description Effective Dates Marital status Unknown M arried Yelena 12/31/2014 Number of children Unknown 0 12/31/2014 Employment Unknown Retir ed 12/31/[address]: 7989535 Quit over 10 years ago 200012/31/[address]: 259232 Currently drinks alcohol 12/31/2014 Frequency of drinks SNOMED CT: 278903443 7 drinks per week 12/31/2014 Allergies, Adverse [...] Instruc tions Start Date Stop Date Sta s Fill Instructions omeprazole 20 mg cap owen,delayed release RxNorm: 064062 Capsule(s) TAKE ONE C APSULE BY MOUTH ONCE DAILY 07/09/2018 No Stop Date Active lovastatin 40 mg tablet RxNorm: 397798 Tablet(s) TAKE ONE TABLET BY MOUTH ONCE DAILY 07/09/2018 07/03/2019 Ac tive omeprazole 20 mg cap owen,delayed release RxNorm: 953104 TAKE ONE CAPSULE BY M OUTH ONCE DAILY 06/10/2018 07/08/2018 Inactive Coreg 3.125 mg tablet RxNorm: 646222 1 Tablet(s) PO BID 04/01/2018 09/27/2018 Active lisinopril 10 mg-hyd rochlorothiazide 12.5 mg tablet RxNorm: 023916 1 Tablet(s) PO daily 04/01/2018 2019 Active lovastatin 40 mg tablet RxNorm: 732141 Tablet(s) TAKE ONE TABLET BY MOUTH ONCE DAILY 03/11/2018 07/08/2018 Inactive lovastatin 40 mg tablet RxNorm: 084220 TAKE ONE TABLET BY MOUTH ONCE DAILY 12/17/2017 03/10/2018 In active Keflex 500 mg capsule RxNorm: 219633 1 Capsule(s) PO TID 11/01/2017 11/07/2017 Inactive doxycycline hyclate 100 mg capsule RxNorm: 9574476 1 Capsule(s) PO BID 09/11/2017 09/17/2017 In active Coreg 3.125 mg tablet RxNorm: 899988 1 Tablet(s) PO BID 09/03/2017 03/31/2018 Inactive Coreg 3.125 mg tablet RxNorm: 018455 1 Tablet(s) PO BID 09/03/2017 09/02/2017 Inactive doxycycline hyclate 100 mg capsule RxNorm: 4170894 1 Capsule(s) PO BID 08/27/2017 09/02/2017 In active lovastatin 40 mg tablet RxNorm: 320428 1 Tablet(s) PO daily 08/08/2017 12/05/2017 Inactive omeprazole 20 mg cap owen,delayed release RxNorm: 879968 1 Capsule(s) PO daily 07/23/2017 06/09/2018 In active lisinopril 10 mg-hyd rochlorothiazide 12.5 mg tablet RxNorm: 515111 1 Tablet(s) PO daily 07/09/2017 03/31/2018 Inactive patient needs to call the office to raegan haynes fluorouracil 5 % top ical cream RxNorm: 437041 1 Gram(s) TOP BID x2 weeks ONLY 03/26/2017 04/08/2017 In active fluorouracil 5 % top ical cream RxNorm: 318542 1 Gram(s) TOP BID x2 weeks ONLY 03/26/2017 03/25/2017 In active Colcrys 0.6 mg tablet RxNorm: 447538 2 Tablet(s) PO UD 12/05/2016 No Stop Date Active 2 ta bs today then 1 tab daily x 5 days then prn gout lisinopril 10 mg-hyd rochlorothiazide 12.5 mg tablet RxNorm: 277601 1 Tablet(s) PO daily 10/12/2016 07/08/2017 Inactive Cipro 500 mg tablet RxNorm: 787741 1 Tablet(s) PO BID 10/02/2016 10/08/2016 Inactive Cipro 500 mg tablet RxNorm: 766043 1 Tablet(s) PO BID 10/02/2016 10/01/2016 Inactive lovastatin 40 mg tablet RxNorm: 956529 Tablet(s) PO 07/27/2016 08/07/2017 Inactive Cipro 500 mg tablet RxNorm: 322172 1 Tablet(s) PO BID 09/27/2015 09/26/2015 Inactive Cipro 500 mg tablet RxNorm: 814233 1 Tablet(s) PO BID 09/27/2015 10/03/2015 Inactive omeprazole 20 mg cap owen,delayed release RxNorm: 594751 1 Capsule(s) PO daily 07/06/2015 06/29/2016 In active lisinopril 10 mg-hyd rochlorothiazide 12.5 mg tablet RxNorm: 142642 1 Tablet(s) PO daily 07/06/2015 10/03/2015 Inactive lovastatin 40 mg tablet RxNorm: 646867 Tablet(s) PO 12/31/2014 07/26/2016 Inactive lisinopril 10 mg-hyd rochlorothiazide 12.5 mg tablet RxNorm: 312212 1 Tablet(s) PO daily 12/31/2014 03/30/2015 Inactive Ocuvite oral RxNorm: 499842 oral No Start Date Active aspirin 81 mg tablet ,delayed release RxNorm: 205175 1 Tablet(s) PO daily No Start Date Active Prilosec oral RxNorm: 7646 oral No Start Date 12/07/2015 Inactive lovastatin oral RxNorm: 500452 oral No Start Date 12/30/2014 Inactive Medication Administered No Medication Administered data Immunizations Vaccine Codes Date Status Influenza CVX: 141 05/18 completed Assessments Condition Codes Effectiv e Dates Acute upper respiratory infection, unspecified ICD-10: J06.9 [...] For Visit Effective Dates Notes skin lesion 05/16/2018 skin lesion 03/11/2018 Hospital [...] 31.3 pg 08/27/2017 Cbc With Differential Ord2 [place]% 12.7 % 08/27/2017 Cbc With Differential Ord2 [...] 1.75 K/ul 08/27/2017 Cbc With Differential Ord2 [place] ABS# 0.8 K/ul 08/27/2017 Cbc With Differential Ord2 Eos ABS# 0.1 K/ul 08/27/2017 Cbc With Differential Ord2 Baso ABS# 0.0 K/ul 08/27/2017 Lipid Ord30 CHOL 170 mg/dL 08/27/2017 Lipid Ord30 HDL 52.0 mg/dl 08/27/2017 Lipid Ord30 TRIG 106 mg/dL 08/27/2017 Lipid Ord30 LDL 97 mg/dL 08/27/2017 Lipid Ord30 C/HDL 3.3 Ratio 08/27/2017 Total Psa Ord10 PSA 1.09 ng/mL 08/27/2017 Comp Metabolic Jca573 NA 136 mEq/L 08/27/2017 Comp Metabolic Xut840 K 4.2 mEq/L 08/27/2017 Comp Metabolic Xnv523 CL 98 mEq/L 08/27/2017 Comp Metabolic Ifg211 CO2 26.0 mEq/L 08/27/2017 Comp Metabolic Mxh690 AN ION GAP 16 08/27/2017 Comp Metabolic Ukr243 GL UCOSE 119 mg/dL 08/27/2017 Comp Metabolic Xhj347 Cr eat 1.2 mg/dL 08/27/2017 Comp Metabolic Rpq718 eG FR 67 ml/min/1.73m2 08/27 Comp Metabolic Ytz448 BUN 14 mg/dL 08/27/2017 Comp Metabolic Lgy644 B/ C Ratio 12.2 Ratio 08/27/2017 Comp Metabolic Zrz108 CA LCIUM 9.5 mg/dL 08/27/2017 Comp Metabolic Vhk212 AL K PHOS 60 U/L 08/27/2017 Comp Metabolic Gsi829 T(SGOT) 40 U/L 08/27/2017 Comp Metabolic Viz383 AL T(SGPT) 40 U/L 08/27/2017 Comp Metabolic Tsu069 BI LI T 0.6 mg/dL 08/27/2017 Comp Metabolic Pss111 AL BUMIN 4.4 g/dL 08/27/2017 Comp Metabolic Sdl965 TP RO 6.9 g/dL 08/27/2017 Comp Metabolic Anb811 GL OB 2.5 g/dL 08/27/2017 Comp Metabolic Fcc400 A/ G Ratio 1.7 Ratio 08/27/2017 Comp Metabolic Ttv053 Os mo 274 mOsmo 08/27/2017 Comp Metabolic Qps337 NA 137 mEq/L 01/23/2017 Comp Metabolic Gtj320 K 4.7 mEq/L 01/23/2017 Comp Metabolic Cve409 CL 99 mEq/L 01/23/2017 Comp Metabolic Zuz836 CO2 30.0 mEq/L 01/23/2017 Comp Metabolic Bmq636 AN ION GAP 13 01/23/2017 Comp Metabolic Cso423 GL UCOSE 92 mg/dL 01/23/2017 Comp Metabolic Lcu840 Cr eat 1.0 mg/dL 01/23/2017 Comp Metabolic Wyt635 eG FR 77 ml/min/1.73m2 01/23 Comp Metabolic Vlp733 BUN 13 mg/dL 01/23/2017 Comp Metabolic Hev553 B/ C Ratio 12.7 Ratio 01/23/2017 Comp Metabolic Uvi414 CA LCIUM 9.3 mg/dL 01/23/2017 Comp Metabolic Fqk757 AL K PHOS 56 U/L 01/23/2017 Comp Metabolic Pmu847 T(SGOT) 26 U/L 01/23/2017 Comp Metabolic Qeu143 AL T(SGPT) 25 U/L 01/23/2017 Comp Metabolic Fyu423 BI LI T 0.5 mg/dL 01/23/2017 Comp Metabolic Rvo260 AL BUMIN 4.2 g/dL 01/23/2017 Comp Metabolic Egi119 TP RO 6.9 g/dL 01/23/2017 Comp Metabolic Cix730 GL OB 2.7 g/dL 01/23/2017 Comp Metabolic Qcy292 A/ G Ratio 1.5 Ratio 01/23/2017 Comp Metabolic Tmz257 Os mo 274 mOsmo 01/23/2017 Cbc With [...] 19.5 % 12/05/2016 Cbc With Differential Ord2 [place]% 13.0 % 12/05/2016 Cbc With Differential Ord2 MCH 31.5 pg 12/05/2016 Cbc With Differential Ord2 Eos% 1.9 % 12/05/2016 Cbc With Differential Ord2 MCHC 34.5 pg 12/05/2016 Cbc With Differential Ord2 Baso% 0.5 % 12/05/2016 Cbc With Differential Ord2 PLT 277 K/ul 12/05/2016 Cbc With Differential Ord2 RDW 12.6 % 12/05/2016 Cbc With Differential Ord2 Neut ABS# 5.50 K/ul 12/05/2016 Cbc With Differential Ord2 Lymph ABS# 1.65 K/ul 12/05/2016 Cbc With Differential Ord2 [place] ABS# 1.1 K/ul 12/05/2016 Cbc With Differential Ord2 Eos ABS# 0.2 K/ul 12/05/2016 Cbc With Differential Ord2 Baso ABS# 0.0 K/ul 12/05/2016 Uric Acid Ord77 Uric A 6.5 mg/dL 12/05/2016 Comp Metabolic Ita668 NA 136 mEq/L 12/05/2016 Comp Metabolic Yfj274 K 4.4 mEq/L 12/05/2016 Comp Metabolic Tjp793 CL 99 mEq/L 12/05/2016 Comp Metabolic Sxj304 CO2 28.0 mEq/L 12/05/2016 Comp Metabolic Frw505 AN ION GAP 13 12/05/2016 Comp Metabolic Hah234 GL UCOSE 84 mg/dL 12/05/2016 Comp Metabolic Ouo168 Cr eat 1.0 mg/dL 12/05/2016 Comp Metabolic Lvm707 eG FR 84 ml/min/1.73m2 12/05 Comp Metabolic Biy904 BUN 14 mg/dL 12/05/2016 Comp Metabolic Pjc784 B/ C Ratio 14.7 Ratio 12/05/2016 Comp Metabolic Bmv681 CA LCIUM 9.0 mg/dL 12/05/2016 Comp Metabolic Npe229 AL K PHOS 55 U/L 12/05/2016 Comp Metabolic Aiy158 T(SGOT) 26 U/L 12/05/2016 Comp Metabolic Clc689 AL T(SGPT) 25 U/L 12/05/2016 Comp Metabolic Xiq854 BI LI T 0.4 mg/dL 12/05/2016 Comp Metabolic Ymy076 AL BUMIN 4.1 g/dL 12/05/2016 Comp Metabolic Ddu643 TP RO 6.8 g/dL 12/05/2016 Comp Metabolic Jrj522 GL OB 2.7 g/dL 12/05/2016 Comp Metabolic Obj683 A/ G Ratio 1.5 Ratio 12/05/2016 Comp Metabolic Mgm336 Os mo 272 mOsmo 12/05/2016 Comp Metabolic Nru641 NA 136 mEq/L 11/13/2016 Comp Metabolic Bzo211 K 4.2 mEq/L 11/13/2016 Comp Metabolic Akr786 CL 98 mEq/L 11/13/2016 Comp Metabolic Ggj658 CO2 29.0 mEq/L 11/13/2016 Comp Metabolic Bvn649 AN ION GAP 13 11/13/2016 Comp Metabolic Fyv425 GL UCOSE 94 mg/dL 11/13/2016 Comp Metabolic Hdn228 Cr eat 1.0 mg/dL 11/13/2016 Comp Metabolic Syw373 eG FR 78 ml/min/1.73m2 11/13 Comp Metabolic Qis105 BUN 12 mg/dL 11/13/2016 Comp Metabolic Aeq907 B/ C Ratio 11.9 Ratio 11/13/2016 Comp Metabolic Oae927 CA LCIUM 9.4 mg/dL 11/13/2016 Comp Metabolic Mje803 AL K PHOS 56 U/L 11/13/2016 Comp Metabolic Zrf598 T(SGOT) 25 U/L 11/13/2016 Comp Metabolic Ubm262 AL T(SGPT) 25 U/L 11/13/2016 Comp Metabolic Zxp363 BI LI T 0.6 mg/dL 11/13/2016 Comp Metabolic Tba352 AL BUMIN 4.2 g/dL 11/13/2016 Comp Metabolic Mye648 TP RO 6.7 g/dL 11/13/2016 Comp Metabolic Omw577 GL OB 2.5 g/dL 11/13/2016 Comp Metabolic Nxw629 A/ G Ratio 1.6 Ratio 11/13/2016 Comp Metabolic Bcn082 Os mo 271 mOsmo 11/13/2016 Urine Culture Ucult Comp lete NO Growth Day 2 10/04 Urine Culture Ucult Prel iminary NO Growth Day 1 10/04 Lipid Ord30 CHOL 197 mg/dL 06/12/2016 [...] 31.2 pg 06/12/2016 Cbc With Differential Ord2 [place]% 15.1 % 06/12/2016 Cbc With Differential Ord2 [...] 1.66 K/ul 06/12/2016 Cbc With Differential Ord2 [place] ABS# 1.1 K/ul 06/12/2016 Cbc With Differential Ord2 Eos ABS# 0.2 K/ul 06/12/2016 Cbc With Differential Ord2 Baso ABS# 0.1 K/ul 06/12/2016 Comp Metabolic Gpp678 NA 132 mEq/L 06/12/2016 Comp Metabolic Tib420 K 4.2 mEq/L 06/12/2016 Comp Metabolic Tdd886 CL 97 mEq/L 06/12/2016 Comp Metabolic Pcl811 CO2 28.0 mEq/L 06/12/2016 Comp Metabolic Ucy463 AN ION GAP 11 06/12/2016 Comp Metabolic Bku570 GL UCOSE 98 mg/dL 06/12/2016 Comp Metabolic Szq919 Cr eat 1.0 mg/dL 06/12/2016 Comp Metabolic Qxm343 eG FR 78 ml/min/1.73m2 06/12 Comp Metabolic Ywo337 BUN 12 mg/dL 06/12/2016 Comp Metabolic Xdd906 B/ C Ratio 11.9 Ratio 06/12/2016 Comp Metabolic Goe322 CA LCIUM 9.2 mg/dL 06/12/2016 Comp Metabolic Wpm769 AL K PHOS 58 U/L 06/12/2016 Comp Metabolic Fiz259 T(SGOT) 23 U/L 06/12/2016 Comp Metabolic Vwe480 AL T(SGPT) 22 U/L 06/12/2016 Comp Metabolic Hrx818 BI LI T 0.6 mg/dL 06/12/2016 Comp Metabolic Vna671 AL BUMIN 4.2 g/dL 06/12/2016 Comp Metabolic Kum595 TP RO 6.8 g/dL 06/12/2016 Comp Metabolic Jto986 GL OB 2.6 g/dL 06/12/2016 Comp Metabolic Pph211 A/ G Ratio 1.6 Ratio 06/12/2016 Comp Metabolic Qtb302 Os mo 264 mOsmo 06/12/2016 Tsh Ord6 hTSH II 2.41 uIU/mL 12/21/2015 Comp Metabolic Gyh914 NA 135 mEq/L 12/21/2015 Comp Metabolic Vpw879 K 4.2 mEq/L 12/21/2015 Comp Metabolic Fwq079 CL 98 mEq/L 12/21/2015 Comp Metabolic Nhn056 CO2 29.0 mEq/L 12/21/2015 Comp Metabolic Ozq523 AN ION GAP 12 12/21/2015 Comp Metabolic Kon990 GL UCOSE 99 mg/dL 12/21/2015 Comp Metabolic Pcp033 Cr eat 1.1 mg/dL 12/21/2015 Comp Metabolic Eti854 eG FR 70 ml/min/1.73m2 12/20 Comp Metabolic Gmg259 BUN 17 mg/dL 12/21/2015 Comp Metabolic Ygb621 B/ C Ratio 15.2 Ratio 12/21/2015 Comp Metabolic Pvi200 CA LCIUM 9.1 mg/dL 12/21/2015 Comp Metabolic Gjh566 AL K PHOS 60 U/L 12/21/2015 Comp Metabolic Xox570 T(SGOT) 23 U/L 12/21/2015 Comp Metabolic Qbt188 AL T(SGPT) 22 U/L 12/21/2015 Comp Metabolic Gnv929 BI LI T 0.6 mg/dL 12/21/2015 Comp Metabolic Niv331 AL BUMIN 4.3 g/dL 12/21/2015 Comp Metabolic Jqk734 TP RO 7.0 g/dL 12/21/2015 Comp Metabolic Nsw284 GL OB 2.8 g/dL 12/21/2015 Comp Metabolic Hmw129 A/ G Ratio 1.5 Ratio 12/21/2015 Comp Metabolic Zne680 Os mo 272 mOsmo 12/21/2015 Cbc With Differential Ord2 WBC 6.62 K/ul 12/21/2015 Cbc With Differential Ord2 RBC 4.76 M/ul 12/21/2015 Cbc With Differential Ord2 HGB 14.5 g/dl 12/21/2015 Cbc With Differential Ord2 HCT 42.2 % 12/21/2015 Cbc With Differential Ord2 Neut% 57.3 % 12/21/2015 Cbc With Differential Ord2 Lymph% 23.9 % 12/21/2015 Cbc With Differential Ord2 MCV 88.7 fl 12/21/2015 Cbc With Differential Ord2 [place]% 15.3 % 12/21/2015 Cbc With Differential Ord2 MCH 30.5 pg 12/21/2015 Cbc With Differential Ord2 MCHC 34.4 pg 12/21/2015 Cbc With Differential Ord2 Eos% 2.9 % 12/21/2015 Cbc With Differential Ord2 Baso% 0.6 % 12/21/2015 Cbc With Differential Ord2 PLT 264 K/ul 12/21/2015 Cbc With Differential Ord2 Neut ABS# 3.80 K/ul 12/21/2015 Cbc With Differential Ord2 RDW 13.2 % 12/21/2015 Cbc With Differential Ord2 Lymph ABS# 1.58 K/ul 12/21/2015 Cbc With Differential Ord2 [place] ABS# 1.0 K/ul 12/21/2015 Cbc With Differential [...] C/HDL 3.4 Ratio 12/21/2015 Urine Culture Ucult Comp lete No Growth Day 2 09/29 Urine Culture Ucult Prel iminary No Growth Day 1 09/29 Review of Systems System Result Effective Dates Cardiovascular No edema 05/16/2018 Cardiovascular No dyspnea [...] inspection of skin Location: face 05/16/2018 right buddhist Full Exam - Dermatology Constitutional general appearance [...] palp - head/face Location: on the right buddhist 03/11/2018 None Full Exam - Dermatology Integument [...] Date URINALYSIS NONAUTO W /O SCOPE CPT-4: 28880 10/02/2016 URINALYSIS NONAUTO W /O SCOPE CPT-4: 60059 09/27/2015 Vital Signs Date Vital 05/16/2018 Blood Pressure 1: 144/84 Code: 8480-6 BMI: 29.3 Code: 41575-3 Heart Rate 1: 71 bpm Height: 5'10" SpO2: 98% Weight: 204 lbs 03/11/2018 Blood Pressure 1: 126/74 Code: 8480-6 BMI: 29.3 Code: 26488-6 Heart Rate 1: 84 bpm Height: 5'10" SpO2: 97% Weight: 204 lbs 01/25/2018 Blood Pressure 1: 134/80 Code: 8480-6 BMI: 29.3 Code: 02165-4 Heart Rate 1: 86 bpm Height: 5'10" SpO2: 97% Weight: 204 lbs 11/01/2017 Blood Pressure 1: 130/80 Code: 8480-6 BMI: 28.6 Code: 65689-9 Heart Rate 1: 72 bpm Height: 5'10" SpO2: 98% Temperature: 36.5 (C ) / 97.7 (F) Weight: 199 lbs 09/11/2017 Blood Pressure 1: 128/80 Code: 8480-6 Heart Rate 1: 72 bpm Height: 5'10" SpO2: 99% Weight: 08/27/2017 Blood Pressure 1: 126/70 Code: 8480-6 BMI: 29.8 Code: 07132-4 Heart Rate 1: 107 bpm Height: 5'10" SpO2: 96% Weight: 208 lbs 12/05/2016 Blood Pressure 1: 140/78 Code: 8480-6 BMI: 28.6 Code: 14520-6 Heart Rate 1: 98 bpm Height: 5'10" SpO2: 96% Weight: 199 lbs 06/06/2016 Blood Pressure 1: 142/80 Code: 8480-6 BMI: 28.7 Code: 71239-1 Heart Rate 1: 95 bpm Height: 5'10" SpO2: 97% Weight: 200 lbs 12/07/2015 Blood Pressure 1: 132/78 Code: 8480-6 BMI: 28.6 Code: 02915-7 Heart Rate 1: 81 bpm Height: 5'10" SpO2: 97% Weight: 199 lbs 06/29/2015 Blood Pressure 1: 118/76 Code: 8480-6 BMI: 28.7 Code: 95302-3 Heart Rate 1: 98 bpm Height: 5'10" SpO2: 98% Weight: 200 lbs 12/31/2014 Blood Pressure 1: 132/72 Code: 8480-6 BMI: 28.6 Code: 63985-8 Heart Rate 1: 75 bpm Height: 5'10" SpO2: 95% Weight: 199 lbs Functional Status No Functional Status data History of Present Illness Symptom Name Status Resu lt Effective Date Notes sore throat Quality acute 05/16/2018 None sore [...] Episodes years 12/31/2014 he worked on the [employer] and has had ear damage from no hearing protection Advance Directives No Advance Directive data Encounters Encounter Performer Loca tion Codes Date () 75522 EST. P ATIENT, LEVEL III Diagnosis: Acute upper respiratory infection, unspecified[ICD10: J06.9] Diagnosis: Actinic keratosis[ICD10: L57.0] [facility] CPT- 4: 10274 05/16/2018 65503 EST. PATIENT, LEVEL III Diagnosis: Actinic keratosis[ICD10: L57.0] Diagnosis: Basal cell carcinoma of skin of other parts of face[ICD10: C44.319] [facility] CPT-4: 76394 03/11/2018 33107 EST. PATIENT, LEVEL III Diagnosis: Encounter for follow-up examination after completed treatment for conditions other than malignant neoplasm[ICD10: Z09] [facility] CPT-4: 97670 01/25/2018 ([id number]) 88147 EST. P ATIENT, LEVEL III Diagnosis: Acute recurrent maxillary sinusitis[ICD10: J01.01] Diagnosis: Cough[ICD10: R05] Aydee Lane MD, [facility] CPT-4: 88314 11/01/2017 45164 EST. PATIENT, LEVEL III Diagnosis: Olecranon bursitis, left elbow[ICD10: M70.22] Kati Lane MD, [facility] CPT-4: 76273 09/11/2017 ([id number]) Miscellaneou s no charge Diagnosis: Essential (primary) hypertension[ICD10: I10] Vianney Lane MD, C CPT-4: 22367 09/03/2017 10397 EST. PATIENT, LEVEL IV Diagnosis: Essential (primary) hypertension[ICD10: I10] Diagnosis: Bitten by dog, initial encounter[ICD10: W54.0XXA] Kati Lane MD, [facility] CPT-4: 82164 08/27/2017 ([id number]) 11561 EST. P ATIENT, LEVEL III Diagnosis: Essential (primary) hypertension[ICD10: I10] Diagnosis: Idiopathic gout, left ankle and foot[ICD10: M10.072] Aydee Lane MD, [facility] CPT-4: 92897 12/05/2016 ([id number]) 72578 EST. P ATIENT, LEVEL IV Diagnosis: Essential (primary) hypertension[ICD10: I10] Diagnosis: Mixed hyperlipidemia[ICD10: E78.2] Diagnosis: Personal history of other malignant neoplasm of bronchus and lung[ICD10: Z85.118] Diagnosis: Diseases of lips[ICD10: K13.0] Vianney Lane MD, [facility] CPT-4: 75596 06/06/2016 ([id number]) 21186 EST. P ATIENT, LEVEL IV Diagnosis: Essential (primary) hypertension[ICD10: I10] Diagnosis: Mixed hyperlipidemia[ICD10: E78.2] Diagnosis: Bicipital tendinitis, right shoulder[ICD10: M75.21] Vianney Lane [facility] CPT-4: 65972 12/07/2015 ([id number]) 96995 EST. P ATIENT, LEVEL IV Diagnosis: Essential (primary) hypertension[ICD10: I10] Diagnosis: Pain in right shoulder[ICD10: M25.511] [facility] CPT-4: 33414 06/29/2015 ([id number]) OFFICE VISI T, NEW - LEVEL 4 Diagnosis: ESSENTIAL HYPERTENSION[ICD9: 401.9] Diagnosis: HYPERLIPIDEMIA[ICD9: 272.4] [facility] CPT-4: 08821 12/31/2014 Plan of Care Planned Activity Notes C odes Status Date Visit Plan: URI - Pt advised to inc rease fluids, vitamin C. Discussed natural and expected course of this diagnosis and need to alert me if symptoms do not follow expected course, or if any worse. AK-cryotherapy today in the office 05/16/2018 Appointment: Aydee Gallardo WPtel: [facility]6 [phone] (15 min) Moderate 05/16/2018 Patient Education: Patient [...] acute concerns. 03/11/2018 Appointment: Kati Appiah WPtel: [address] [place], [place] [email or web address]] (15 min) Moderate 03/11/2018 Patient Education: Patient Medication Summary Completed 03/11/2018 Visit Plan: ER follow up - symptoms resolved at this time - will call for ER report - pt is to notify clinic if symptoms do not improve, if they worsen, or with any changes, questions, or concerns. 01/25/2018 Appointment: Kati Appiah WPtel: [facility]9 [facility] [[email or web address]] (15 min) Moderate 01/25/2018 Patient Education: Patient Medication Summary Completed 01/25/2018 Visit Plan: Sinusitis - Pt has acut e infection - pain in face, maxillary region, Pt informed to use decongestant, RX given to patient, sinus rinses also recommended. Call if symptoms do not show improvement. Cough- history lung ca-discussed chest xray if symptoms do not resolve 11/01/2017 Appointment: Aydee Gallardo WPtel: [phone] [phone] [place] (15 min) Moderate 11/01/2017 Patient Education: Patient Medication Summary Completed 11/01/2017 Visit Plan: Bursitis - after dog bi te - will send RX - pt to do exercises as directed - stretching, anti-inflammatories to be started after 24 hours, and pt to use heat to the affected sites, pt to call if not improving. 09/11/2017 Appointment: Kati Appiah [facility]Ptel[phone] [facility] [place] (30 min) Complex 09/11/2017 Patient Education: [...] acute concerns. 08/27/2017 Appointment: Kati Appiah WPtel: [address] [place] [address] (15 min) Moderate 08/27/2017 Patient Education: Patient [...] when available. 12/05/2016 Appointment: Aydee Gallardo WPtel: [facility]0 [phone] (30 min) Complex 12/05/2016 Patient Education: Patient Medication Summary Completed 12/05/2016 Appointment: Aydee Gallardo WPtel: [address] [place], [place] [phone] (30 min) Complex 12/04/2016 Appointment: Lab Draw 10/02/2016 Patient Education: Patient Medication Summary Completed 10/02/2016 Referral: Austin Li [address] Patient informed. Referral info faxed. Completed [...] pt 06/06/2016 Appointment: Vianney Lane WPtel: [phone] [facility] (15 min) Moderate 06/06/2016 Patient Education: Patient Medication Summary Completed 06/06/2016 Patient Education: Hypertension Completed 06/06/2016 Care Plan: Referral Order SNOMED-CT : [id number] Pending 06/06/2016 Visit Plan: Hypertension - well [...] improved. 12/07/2015 Appointment: [facility]ian[phone] (15 min) Moderate 12/07/2015 Patient Education: Patient [...] to medications. 12/31/2014 Appointment: Vianney Lane WPtel: [facility] [place] ([place] New Patient 12/31/2014 Patient Education: Patient Medication Summary Completed 12/31/2014 Patient Education: Hypertension Completed 12/31/2014 [facility] [facility] App[facility]ment Requested Instructions Comment [...] probiotic while on t he doxycycline - [employer], culturelle, or generic . Hypertension - The [...] probiotic while on t he doxycycline - [employer], culturelle, or generic . Hypertension - The [...] old goats - musc le rub from [place] and home . Hypertension - well controlled [...] xray if symptoms do not resolve . Hypertension - wel l controlled - [...]
--- OUTSIDE RECORDS SUMMARY | 2019-12-19 09:10 | XMS REPORT | CCD ---
Author Author Aniceto Lane Organization Vianney Lane MD, [facility] Address [address] [place] [address] Phone Care Team Providers Care Wire Cutter Name Role Phone PP Unavailable CCM Unavailable Summary Purpose Interface Exchange Insurance Providers Payer name Policy type / Coverage type Covered democrat ID Effective Begin Date Effective End Date [place] [employer] Medicare Part B [id number] [facility] Part B [id number] Unknown Family history Father Diagnosis Age At Onset Cancer Unknown Mother Diagnosis Age At Onset Hypertension Unknown Hyperlipidemia Unknown Social History Social History Element Codes Description Effective Dates Marital status Unknown M arried Yelena 12/31/2014 Number of children Unknown 0 12/31/2014 Employment Unknown Retir ed 12/31/[address]: 6703962 Quit over 10 years ago 200012/31/[address]: 263295 Currently drinks alcohol 12/31/2014 Frequency of drinks SNOMED CT: 187365593 7 drinks per week 12/31/2014 Allergies, Adverse [...] Codes Instruc tions Start Date Stop Date Fill Instructions omeprazole 20 mg cap owen,delayed release RxNorm: 182370 TAKE ONE CAPSULE BY M OUT ONCE DAILY 06/10/2018 No Stop Date Active Coreg 3.125 mg tablet RxNorm: 191046 1 Tablet(s) PO BID 04/01/2018 09/27/2018 Active lisinopril 10 mg-hyd rochlorothiazide 12.5 mg tablet RxNorm: 440932 1 Tablet(s) PO daily 04/01/2018 2019 Active lovastatin 40 mg tablet RxNorm: 772538 Tablet(s) TAKE ONE TABLET BY MOUTH ONCE DAILY 03/11/2018 07/08/2018 Ac tive lovastatin 40 mg tablet RxNorm: 961820 TAKE ONE TABLET BY MOUTH ONCE DAILY 12/17/2017 03/10/2018 In active Keflex 500 mg capsule RxNorm: 710960 1 Capsule(s) PO TID 11/01/2017 11/07/2017 Inactive doxycycline hyclate 100 mg capsule RxNorm: 4222464 1 Capsule(s) PO BID 09/11/2017 09/17/2017 In active Coreg 3.125 mg tablet RxNorm: 483790 1 Tablet(s) PO BID 09/03/2017 03/31/2018 Inactive Coreg 3.125 mg tablet RxNorm: 959106 1 Tablet(s) PO BID 09/03/2017 09/02/2017 Inactive doxycycline hyclate 100 mg capsule RxNorm: 3054971 1 Capsule(s) PO BID 08/27/2017 09/02/2017 In active lovastatin 40 mg tablet RxNorm: 364641 1 Tablet(s) PO daily 08/08/2017 12/05/2017 Inactive omeprazole 20 mg cap owen,delayed release RxNorm: 030897 1 Capsule(s) PO daily 07/23/2017 06/09/2018 In active lisinopril 10 mg-hyd rochlorothiazide 12.5 mg tablet RxNorm: 526841 1 Tablet(s) PO daily 07/09/2017 03/31/2018 Inactive patient needs to call the office to raegan haynes fluorouracil 5 % top ical cream RxNorm: 187532 1 Gram(s) TOP BID x2 weeks ONLY 03/26/2017 04/08/2017 In active fluorouracil 5 % top ical cream RxNorm: 931898 1 Gram(s) TOP BID x2 weeks ONLY 03/26/2017 03/25/2017 In active Colcrys 0.6 mg tablet RxNorm: 511409 2 Tablet(s) PO UD 12/05/2016 No Stop Date Active 2 ta bs today then 1 tab daily x 5 days then prn gout lisinopril 10 mg-hyd rochlorothiazide 12.5 mg tablet RxNorm: 945885 1 Tablet(s) PO daily 10/12/2016 07/08/2017 Inactive Cipro 500 mg tablet RxNorm: 861010 1 Tablet(s) PO BID 10/02/2016 10/08/2016 Inactive Cipro 500 mg tablet RxNorm: 547289 1 Tablet(s) PO BID 10/02/2016 10/01/2016 Inactive lovastatin 40 mg tablet RxNorm: 958225 Tablet(s) PO 07/27/2016 08/07/2017 Inactive Cipro 500 mg tablet RxNorm: 214983 1 Tablet(s) PO BID 09/27/2015 09/26/2015 Inactive Cipro 500 mg tablet RxNorm: 564217 1 Tablet(s) PO BID 09/27/2015 10/03/2015 Inactive omeprazole 20 mg cap owen,delayed release RxNorm: 071464 1 Capsule(s) PO daily 07/06/2015 06/29/2016 In active lisinopril 10 mg-hyd rochlorothiazide 12.5 mg tablet RxNorm: 103205 1 Tablet(s) PO daily 07/06/2015 10/03/2015 Inactive lovastatin 40 mg tablet RxNorm: 896025 Tablet(s) PO 12/31/2014 07/26/2016 Inactive lisinopril 10 mg-hyd rochlorothiazide 12.5 mg tablet RxNorm: 285884 1 Tablet(s) PO daily 12/31/2014 03/30/2015 Inactive Ocuvite oral RxNorm: 221398 oral No Start Date Active aspirin 81 mg tablet ,delayed release RxNorm: 644199 1 Tablet(s) PO daily No Start Date Active Prilosec oral RxNorm: 7646 oral No Start Date 12/07/2015 Inactive lovastatin oral RxNorm: 518716 oral No Start Date 12/30/2014 Inactive Medication [...] 31.3 pg 08/27/2017 Cbc With Differential Ord2 [place]% 12.7 % 08/27/2017 Cbc With Differential Ord2 [...] 1.75 K/ul 08/27/2017 Cbc With Differential Ord2 [place] ABS# 0.8 K/ul 08/27/2017 Cbc With Differential Ord2 Eos ABS# 0.1 K/ul 08/27/2017 Cbc With Differential Ord2 Baso ABS# 0.0 K/ul 08/27/2017 Lipid Ord30 CHOL 170 mg/dL 08/27/2017 Lipid Ord30 HDL 52.0 mg/dl 08/27/2017 Lipid Ord30 TRIG 106 mg/dL 08/27/2017 Lipid Ord30 LDL 97 mg/dL 08/27/2017 Lipid Ord30 C/HDL 3.3 Ratio 08/27/2017 Total Psa Ord10 PSA 1.09 ng/mL 08/27/2017 Comp Metabolic Nuj103 NA 136 mEq/L 08/27/2017 Comp Metabolic Ong370 K 4.2 mEq/L 08/27/2017 Comp Metabolic Dbj228 CL 98 mEq/L 08/27/2017 Comp Metabolic Lsk344 CO2 26.0 mEq/L 08/27/2017 Comp Metabolic Bof313 AN ION GAP 16 08/27/2017 Comp Metabolic Ezg235 GL UCOSE 119 mg/dL 08/27/2017 Comp Metabolic Fwj559 Cr eat 1.2 mg/dL 08/27/2017 Comp Metabolic Sin017 eG FR 67 ml/min/1.73m2 08/27 Comp Metabolic Gjo055 BUN 14 mg/dL 08/27/2017 Comp Metabolic Vxw192 B/ C Ratio 12.2 Ratio 08/27/2017 Comp Metabolic Iwc904 CA LCIUM 9.5 mg/dL 08/27/2017 Comp Metabolic Ljr019 AL K PHOS 60 U/L 08/27/2017 Comp Metabolic Tnn180 T(SGOT) 40 U/L 08/27/2017 Comp Metabolic Sgq145 AL T(SGPT) 40 U/L 08/27/2017 Comp Metabolic Sjo726 BI LI T 0.6 mg/dL 08/27/2017 Comp Metabolic Zll374 AL BUMIN 4.4 g/dL 08/27/2017 Comp Metabolic Yrm353 TP RO 6.9 g/dL 08/27/2017 Comp Metabolic Wss309 GL OB 2.5 g/dL 08/27/2017 Comp Metabolic Wjm934 A/ G Ratio 1.7 Ratio 08/27/2017 Comp Metabolic Wui768 Os mo 274 mOsmo 08/27/2017 Comp Metabolic Afo610 NA 137 mEq/L 01/23/2017 Comp Metabolic Odm077 K 4.7 mEq/L 01/23/2017 Comp Metabolic Juq718 CL 99 mEq/L 01/23/2017 Comp Metabolic Cbh446 CO2 30.0 mEq/L 01/23/2017 Comp Metabolic Khv877 AN ION GAP 13 01/23/2017 Comp Metabolic Joz002 GL UCOSE 92 mg/dL 01/23/2017 Comp Metabolic Ozc390 Cr eat 1.0 mg/dL 01/23/2017 Comp Metabolic Juz863 eG FR 77 ml/min/1.73m2 01/23 Comp Metabolic Acq505 BUN 13 mg/dL 01/23/2017 Comp Metabolic Iev444 B/ C Ratio 12.7 Ratio 01/23/2017 Comp Metabolic Dmd979 CA LCIUM 9.3 mg/dL 01/23/2017 Comp Metabolic Yhv636 AL K PHOS 56 U/L 01/23/2017 Comp Metabolic Fkc058 T(SGOT) 26 U/L 01/23/2017 Comp Metabolic Ynq167 AL T(SGPT) 25 U/L 01/23/2017 Comp Metabolic Xac950 BI LI T 0.5 mg/dL 01/23/2017 Comp Metabolic Dhe685 AL BUMIN 4.2 g/dL 01/23/2017 Comp Metabolic Ezv781 TP RO 6.9 g/dL 01/23/2017 Comp Metabolic Djr664 GL OB 2.7 g/dL 01/23/2017 Comp Metabolic Fsr730 A/ G Ratio 1.5 Ratio 01/23/2017 Comp Metabolic Rpk623 Os mo 274 mOsmo 01/23/2017 Cbc With [...] 31.5 pg 12/05/2016 Cbc With Differential Ord2 [place]% 13.0 % 12/05/2016 Cbc With Differential Ord2 [...] 1.65 K/ul 12/05/2016 Cbc With Differential Ord2 [place] ABS# 1.1 K/ul 12/05/2016 Cbc With Differential Ord2 Eos ABS# 0.2 K/ul 12/05/2016 Cbc With Differential Ord2 Baso ABS# 0.0 K/ul 12/05/2016 Uric Acid Ord77 Uric A 6.5 mg/dL 12/05/2016 Comp Metabolic Sdg047 NA 136 mEq/L 12/05/2016 Comp Metabolic Xgo768 K 4.4 mEq/L 12/05/2016 Comp Metabolic Gpw480 CL 99 mEq/L 12/05/2016 Comp Metabolic Hxk392 CO2 28.0 mEq/L 12/05/2016 Comp Metabolic Ojz951 AN ION GAP 13 12/05/2016 Comp Metabolic Xnv841 GL UCOSE 84 mg/dL 12/05/2016 Comp Metabolic Ovm792 Cr eat 1.0 mg/dL 12/05/2016 Comp Metabolic Cxe876 eG FR 84 ml/min/1.73m2 12/05 Comp Metabolic Swt131 BUN 14 mg/dL 12/05/2016 Comp Metabolic Rls711 B/ C Ratio 14.7 Ratio 12/05/2016 Comp Metabolic Txw523 CA LCIUM 9.0 mg/dL 12/05/2016 Comp Metabolic Gip209 AL K PHOS 55 U/L 12/05/2016 Comp Metabolic Rhz697 T(SGOT) 26 U/L 12/05/2016 Comp Metabolic Yvc091 AL T(SGPT) 25 U/L 12/05/2016 Comp Metabolic Odo561 BI LI T 0.4 mg/dL 12/05/2016 Comp Metabolic Gfc807 AL BUMIN 4.1 g/dL 12/05/2016 Comp Metabolic Aag289 TP RO 6.8 g/dL 12/05/2016 Comp Metabolic Rmm643 GL OB 2.7 g/dL 12/05/2016 Comp Metabolic Ppw913 A/ G Ratio 1.5 Ratio 12/05/2016 Comp Metabolic Hkp748 Os mo 272 mOsmo 12/05/2016 Comp Metabolic Zrb062 NA 136 mEq/L 11/13/2016 Comp Metabolic Iph404 K 4.2 mEq/L 11/13/2016 Comp Metabolic Lpt163 CL 98 mEq/L 11/13/2016 Comp Metabolic Bnu260 CO2 29.0 mEq/L 11/13/2016 Comp Metabolic Btx185 AN ION GAP 13 11/13/2016 Comp Metabolic Ret825 GL UCOSE 94 mg/dL 11/13/2016 Comp Metabolic Ruh369 Cr eat 1.0 mg/dL 11/13/2016 Comp Metabolic Xbr095 eG FR 78 ml/min/1.73m2 11/13 Comp Metabolic Isj578 BUN 12 mg/dL 11/13/2016 Comp Metabolic Hdo307 B/ C Ratio 11.9 Ratio 11/13/2016 Comp Metabolic Fis248 CA LCIUM 9.4 mg/dL 11/13/2016 Comp Metabolic Qkb360 AL K PHOS 56 U/L 11/13/2016 Comp Metabolic Hkf667 T(SGOT) 25 U/L 11/13/2016 Comp Metabolic Ein741 AL T(SGPT) 25 U/L 11/13/2016 Comp Metabolic Zns603 BI LI T 0.6 mg/dL 11/13/2016 Comp Metabolic Rly272 AL BUMIN 4.2 g/dL 11/13/2016 Comp Metabolic Vvy374 TP RO 6.7 g/dL 11/13/2016 Comp Metabolic Cdz939 GL OB 2.5 g/dL 11/13/2016 Comp Metabolic Xyi957 A/ G Ratio 1.6 Ratio 11/13/2016 Comp Metabolic Kfc836 Os mo 271 mOsmo 11/13/2016 Urine Culture [...] 31.2 pg 06/12/2016 Cbc With Differential Ord2 [place]% 15.1 % 06/12/2016 Cbc With Differential Ord2 [...] 1.66 K/ul 06/12/2016 Cbc With Differential Ord2 [place] ABS# 1.1 K/ul 06/12/2016 Cbc With Differential Ord2 Eos ABS# 0.2 K/ul 06/12/2016 Cbc With Differential Ord2 Baso ABS# 0.1 K/ul 06/12/2016 Comp Metabolic Iku669 NA 132 mEq/L 06/12/2016 Comp Metabolic Lju266 K 4.2 mEq/L 06/12/2016 Comp Metabolic Aqp139 CL 97 mEq/L 06/12/2016 Comp Metabolic Ssn697 CO2 28.0 mEq/L 06/12/2016 Comp Metabolic Yrq563 AN ION GAP 11 06/12/2016 Comp Metabolic Sdr142 GL UCOSE 98 mg/dL 06/12/2016 Comp Metabolic Sbx981 Cr eat 1.0 mg/dL 06/12/2016 Comp Metabolic Umb934 eG FR 78 ml/min/1.73m2 06/12 Comp Metabolic Ivu308 BUN 12 mg/dL 06/12/2016 Comp Metabolic Ayh361 B/ C Ratio 11.9 Ratio 06/12/2016 Comp Metabolic Mfj105 CA LCIUM 9.2 mg/dL 06/12/2016 Comp Metabolic Wdr384 AL K PHOS 58 U/L 06/12/2016 Comp Metabolic Pyf558 T(SGOT) 23 U/L 06/12/2016 Comp Metabolic Hlj778 AL T(SGPT) 22 U/L 06/12/2016 Comp Metabolic Lbt323 BI LI T 0.6 mg/dL 06/12/2016 Comp Metabolic Pzx948 AL BUMIN 4.2 g/dL 06/12/2016 Comp Metabolic Thj428 TP RO 6.8 g/dL 06/12/2016 Comp Metabolic Ozo152 GL OB 2.6 g/dL 06/12/2016 Comp Metabolic Hby372 A/ G Ratio 1.6 Ratio 06/12/2016 Comp Metabolic Tjh086 Os mo 264 mOsmo 06/12/2016 Tsh Ord6 hTSH II 2.41 uIU/mL 12/21/2015 Comp Metabolic Cai783 NA 135 mEq/L 12/21/2015 Comp Metabolic Ibk340 K 4.2 mEq/L 12/21/2015 Comp Metabolic Kxr909 CL 98 mEq/L 12/21/2015 Comp Metabolic Gkv398 CO2 29.0 mEq/L 12/21/2015 Comp Metabolic Uuf219 AN ION GAP 12 12/21/2015 Comp Metabolic Kjp016 GL UCOSE 99 mg/dL 12/21/2015 Comp Metabolic Dwk393 Cr eat 1.1 mg/dL 12/21/2015 Comp Metabolic Ral917 eG FR 70 ml/min/1.73m2 12/20 Comp Metabolic Sdz901 BUN 17 mg/dL 12/21/2015 Comp Metabolic Ovk131 B/ C Ratio 15.2 Ratio 12/21/2015 Comp Metabolic Bmq952 CA LCIUM 9.1 mg/dL 12/21/2015 Comp Metabolic Ybi534 AL K PHOS 60 U/L 12/21/2015 Comp Metabolic Faj318 T(SGOT) 23 U/L 12/21/2015 Comp Metabolic Pwt866 AL T(SGPT) 22 U/L 12/21/2015 Comp Metabolic Tfj834 BI LI T 0.6 mg/dL 12/21/2015 Comp Metabolic Zsq129 AL BUMIN 4.3 g/dL 12/21/2015 Comp Metabolic Qny846 TP RO 7.0 g/dL 12/21/2015 Comp Metabolic Hyr102 GL OB 2.8 g/dL 12/21/2015 Comp Metabolic Egc192 A/ G Ratio 1.5 Ratio 12/21/2015 Comp Metabolic Jbe883 Os mo 272 mOsmo 12/21/2015 Cbc With [...] 30.5 pg 12/21/2015 Cbc With Differential Ord2 [place]% 15.3 % 12/21/2015 Cbc With Differential Ord2 [...] 1.58 K/ul 12/21/2015 Cbc With Differential Ord2 [place] ABS# 1.0 K/ul 12/21/2015 Cbc With Differential [...] inspection of skin Location: face 05/16/2018 right mormon Full Exam - Dermatology Constitutional general appearance [...] palp - head/face Location: on the right mormon 03/11/2018 None Full Exam - Dermatology Integument [...] dentition 11/01/2017 None Full Exam - General 1995 Ears/Nose/Throat [...] Date URINALYSIS NONAUTO W /O SCOPE CPT-4: 23610 10/02/2016 URINALYSIS NONAUTO W /O SCOPE CPT-4: 59622 09/27/2015 Vital Signs Date Vital 05/16/2018 Blood Pressure 1: 144/84 Code: 8480-6 BMI: 29.3 Code: 78315-7 Heart Rate 1: 71 bpm Height: 5'10" SpO2: 98% Weight: 204 lbs 03/11/2018 Blood Pressure 1: 126/74 Code: 8480-6 BMI: 29.3 Code: 85952-2 Heart Rate 1: 84 bpm Height: 5'10" SpO2: 97% Weight: 204 lbs 01/25/2018 Blood Pressure 1: 134/80 Code: 8480-6 BMI: 29.3 Code: 36881-7 Heart Rate 1: 86 bpm Height: 5'10" SpO2: 97% Weight: 204 lbs 11/01/2017 Blood Pressure 1: 130/80 Code: 8480-6 BMI: 28.6 Code: 30408-5 Heart Rate 1: 72 bpm Height: 5'10" SpO2: 98% Temperature: 36.5 (C ) / 97.7 (F) Weight: 199 lbs 09/11/2017 Blood Pressure 1: 128/80 Code: 8480-6 Heart Rate 1: 72 bpm Height: 5'10" SpO2: 99% Weight: 08/27/2017 Blood Pressure 1: 126/70 Code: 8480-6 BMI: 29.8 Code: 23068-2 Heart Rate 1: 107 bpm Height: 5'10" SpO2: 96% Weight: 208 lbs 12/05/2016 Blood Pressure 1: 140/78 Code: 8480-6 BMI: 28.6 Code: 66836-4 Heart Rate 1: 98 bpm Height: 5'10" SpO2: 96% Weight: 199 lbs 06/06/2016 Blood Pressure 1: 142/80 Code: 8480-6 BMI: 28.7 Code: 73984-6 Heart Rate 1: 95 bpm Height: 5'10" SpO2: 97% Weight: 200 lbs 12/07/2015 Blood Pressure 1: 132/78 Code: 8480-6 BMI: 28.6 Code: 55230-3 Heart Rate 1: 81 bpm Height: 5'10" SpO2: 97% Weight: 199 lbs 06/29/2015 Blood Pressure 1: 118/76 Code: 8480-6 BMI: 28.7 Code: 98861-8 Heart Rate 1: 98 bpm Height: 5'10" SpO2: 98% Weight: 200 lbs 12/31/2014 Blood Pressure 1: 132/72 Code: 8480-6 BMI: 28.6 Code: 68388-3 Heart Rate 1: 75 bpm Height: 5'10" [...] fever 03/11/2018 None Hospital Follow Up _ [facility] er: kidney stone 01/25/2018 None Hospital [...] Episodes years 12/31/2014 he worked on the [employer] and has had ear damage from no hearing protection Advance Directives No Advance Directive data Encounters Encounter Performer Loca tion Codes Date [id number]) [id number] EST. P ATIENT, LEVEL III Diagnosis: Acute upper respiratory infection, unspecified[ICD10: J06.9] Diagnosis: Actinic keratosis[ICD10: L57.0] Aydee Lane MD, [facility] CPT- 4: 51793 05/16/2018 [id number] EST. PATIENT, LEVEL III Diagnosis: Actinic keratosis[ICD10: L57.0] Diagnosis: Basal cell carcinoma of skin of other parts of face[ICD10: C44.319] [facility] CPT-4: 04001 03/11/2018 [id number] EST. PATIENT, LEVEL III Diagnosis: Encounter for follow-up examination after completed treatment for conditions other than malignant neoplasm[ICD10: Z09] [facility] CPT-4: 24305 01/25/2018 ([id number] EST. P ATIENT, LEVEL III Diagnosis: Acute recurrent maxillary sinusitis[ICD10: J01.01] Diagnosis: Cough[ICD10: R05] [facility] CPT-4: 77969 11/01/2017 [id number] EST. PATIENT, LEVEL III Diagnosis: Olecranon bursitis, left elbow[ICD10: M70.22] Kati Lane MD, [facility] CPT-4: 28417 09/11/2017 ([id number]) Miscellaneou s no charge Diagnosis: Essential (primary) hypertension[ICD10: I10] Vianney Lane MD[facility] CPT-4: 97140 09/03/2017 [id number] EST. PATIENT, LEVEL IV Diagnosis: Essential (primary) hypertension[ICD10: I10] Diagnosis: Bitten by dog, initial encounter[ICD10: W54.0XXA] Kati Lane MD, [facility] CPT-4: 12317 08/27/2017 ([id number]) 06750 EST. 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 P ATIENT, LEVEL IV Diagnosis: Essential (primary) hypertension[ICD10: I10] Diagnosis: Mixed hyperlipidemia[ICD10: E78.2] Diagnosis: Personal history of other malignant neoplasm of bronchus and lung[ICD10: Z85.118] Diagnosis: Diseases of lips[ICD10: K13.0] Vianney Lane MD, [facility] CPT-4: 09866 06/06/2016 ([id number]) 46866 EST. P ATIENT, LEVEL IV Diagnosis: Essential (primary) hypertension[ICD10: I10] Diagnosis: Mixed hyperlipidemia[ICD10: E78.2] Diagnosis: Bicipital tendinitis, right shoulder[ICD10: M75.21] Vianney Lane [facility] CPT-4: 28596 12/07/2015 ([id number]) 19509 EST. P ATIENT, LEVEL IV Diagnosis: Essential (primary) hypertension[ICD10: I10] Diagnosis: Pain in right shoulder[ICD10: M25.511] Vianney Lane MD, [facility] CPT-4: 90338 06/29/2015 ([id number]) OFFICE VISI T, NEW - LEVEL 4 Diagnosis: ESSENTIAL HYPERTENSION[ICD9: 401.9] Diagnosis: HYPERLIPIDEMIA[ICD9: 272.4] [facility] CPT-4: 29173 12/31/2014 Plan of Care Planned Activity Notes C odes Status Date Visit Plan: URI - Pt advised to inc rease fluids, vitamin C. Discussed natural and expected course of this diagnosis and need to alert me if symptoms do not follow expected course, or if any worse. AK-cryotherapy today in the office 05/16/2018 Appointment: Aydee Gallardo WPtel: [phone] [place] (15 min) Moderate 05/16/2018 Patient Education: [...] acute concerns. 03/11/2018 Appointment: Kati Appiah WPtel: [address] [place], [place] [phone] (15 min) Moderate 03/11/2018 Patient Education: Patient Medication Summary Completed 03/11/2018 Visit Plan: ER follow up - symptoms resolved at this time - will call for ER report - pt is to notify clinic if symptoms do not improve, if they worsen, or with any changes, questions, or concerns. 01/25/2018 Appointment: Kati Appiah WPtel: [phone] (15 min) Moderate 01/25/2018 Patient Education: Patient Medication Summary Completed 01/25/2018 Visit Plan: Sinusitis - Pt has acut e infection - pain in face, maxillary region, Pt informed to use decongestant, RX given to patient, sinus rinses also recommended. Call if symptoms do not show improvement. Cough- history lung ca-discussed chest xray if symptoms do not resolve 11/01/2017 Appointment: [facility]ardo [phone] [place] (15 min) Moderate 11/01/2017 Patient Education: Patient Medication Summary Completed 11/01/2017 Visit Plan: Bursitis - after dog bi te - will send RX - pt to do exercises as directed - stretching, anti-inflammatories to be started after 24 hours, and pt to use heat to the affected sites, pt to call if not improving. 09/11/2017 Appointment: Kati Appiah [facility]el[phone] (30 min) Complex 09/11/2017 Patient Education: Patient [...] acute concerns. 08/27/2017 Appointment: Kati Appiah [facility]Ptel[phone] [place] (15 min) Moderate 08/27/2017 Patient Education: Patient [...] when available. 12/05/2016 Appointment: Aydee Gallardo WPtel: [phone] (30 min) Complex 12/05/2016 Patient Education: Patient Medication Summary Completed 12/05/2016 Appointment: Aydee Gallardo WPtel: [phone] (30 min) Complex 12/04/2016 Appointment: Lab Draw 10/02/2016 Patient Education: Patient Medication Summary Completed 10/02/2016 Referral: Austin Li [address] Patient informed. Referral info faxed. Completed [...] pt 06/06/2016 Appointment: Vianney Lane WPtel: [phone] (15 min) Moderate 06/06/2016 Patient Education: Patient Medication Summary Completed 06/06/2016 Patient Education: Hypertension Completed 06/06/2016 Care Plan: Referral Order SNOMED-CT : [id number] Pending 06/06/2016 Visit Plan: Hypertension - well [...] not improved. 12/07/2015 Appointment: Vianney Lane WPtel[facility] (15 min) Moderate 12/07/2015 [...] normal liver response to medications. 12/31/2014 Appointment: Werner Laney WPtel: [facility] [place] ([place] New Patient 12/31/2014 Patient Education: Patient Medication Summary Completed 12/31/2014 Patient Education: Hypertension Completed 12/31/2014 [facility] Referral Appointment Requested Instructions Comment Monitor your [...] probiotic while on t he doxycycline - K1 Speed, culturelle, or generic . Hypertension - The [...] probiotic while on t he doxycycline - K1 Speed, culturelle, or generic . Hypertension - The [...] other acute concerns. two old goats - joao le rub from [employer] and home . Hypertension - well controlled [...]
--- OUTSIDE RECORDS SUMMARY | 2019-12-19 09:11 | XMS REPORT | Continuity of Care Document ---
Author Organization Unknown Address Unknown Phone Unavailable Allergies Active Description Code Type Severity Reaction Onset Reported/Identified Relationship to Patient Clinical Status Yes No Known Drug Allergies [id number] Drug Allergy Unknown N/A 04/01/2018 Medications There is no data. Problems Date Dx Coded Attending Type Code Diagnosis Diagnosed By 02/19/2014 HAWK IGLESIAS, TAMMY Ot 550.90 UNILAT INGUINAL HERNIA 08/12/2014 KARTHIK GILESIAS, AUDELIA Garza Ot 211. 3 08/12/2014 KARTHIK IGLESIAS, AUDELIA Garza Ot 562. 10 08/12/2014 KARTHIK IGLESIAS, AUDELIA Garza Ot 600. 00 08/12/2014 KARTHIK IGLESIAS, AUDELIA Garza Ot V76. 51 08/13/2014 KARTHIK IGLESIAS, AUDELIA Garza Ot 211. 3 08/13/2014 KARTHIK IGLESIAS, AUDELIA Garza Ot 562. 10 08/13/2014 KARTHIK IGLESIAS, AUDELIA Garza Ot 600. 00 08/13/2014 KARTHIK IGLESIAS, AUDELIA Garza Ot V76. 51 08/14/2014 KARTHIK IGLESIAS, AUDELIA Garza Ot 211. 3 08/14/2014 KARTHIK IGLESIAS, AUDELIA Garza Ot 562. 10 08/14/2014 KARTHIK IGLESIAS, AUDELIA Garza Ot 600. 00 08/14/2014 KARTHIK IGLESIAS, AUDELIA Garza Ot V76. 51 09/14/2014 KARTHIK IGLESIAS, AUDELIA Garza Ot 211. 3 09/14/2014 KARTHIK IGLESIAS, AUDELIA Garza Ot 562. 10 09/14/2014 KARTHIK IGLESIAS, AUDELIA Garza Ot 600. 00 09/14/2014 KARTHIK IGLESIAS, AUDELIA Garza Ot V76. 51 11/25/2014 KARTHIK IGLESIAS, AUDELIA Garza Ot V72. 84 02/01/2015 SKIP IGLESIAS, ESTHER Leung Ot 272.4 02/01/2015 SKIP IGLESIAS, ESTHER Leung Ot 401.9 02/01/2015 SKIP IGLESIAS, ESTHER Leung Ot V10.11 09/01/2015 HAWK IGLESIAS, TAMMY Ot 550.90 09/01/2015 HAWK IGLESIAS, TAMMY Ot V72.63 09/01/2015 HAWK IGLESIAS, TAKAAKI Ot V74.8 09/01/2015 KARTHIK IGLESIAS, AUDELIA Garza Ot 211. 3 09/01/2015 KARTHIK IGLESIAS, AUDELIA Garza Ot 562. 10 09/01/2015 KARTHIK IGLESIAS, AUDELIA Garza Ot 600. 00 09/01/2015 KARTHIK IGLESIAS, AUDELIA Garza Ot V76. 51 09/01/2015 KARTHIK IGLESIAS, AUDELIA Garza Ot V72. 84 09/01/2015 SKIP IGLESIAS, ESTHER A Ot 272.4 09/01/2015 SKIP IGLESIAS, ESTHER A Ot 401.9 09/01/2015 SKIP IGLESIAS, ESTHER A Ot V10.11 09/01/2015 HAKAN MURDOCK MANAGER UNIX Ot Z08 09/01/2015 HAKAN MURDOCK MANAGER UNIX Ot Z85.118 09/03/2015 HAKAN MURDOCK MANAGER UNIX Ot Z08 09/03/2015 HAKAN MURDOCK MANAGER UNIX Ot Z85.118 09/07/2015 HAKAN MURDOCK MANAGER UNIX Ot F17.210 09/07/2015 HAKAN MURDOCK MANAGER UNIX Ot Z85.118 09/07/2015 HAKAN MURDOCK MANAGER UNIX Ot F17.210 09/07/2015 HAKAN MURDOCK MANAGER UNIX Ot Z85.118 09/13/2015 HAWK IGLESIAS, TAKAAKI Ot 550.90 09/13/2015 HAWK IGLESIAS, TAKAAKI Ot V72.63 09/13/2015 HAWK IGLESIAS, TAKAAKI Ot V74.8 09/13/2015 KARTHIK IGLESIAS, AUDELIA Garza Ot 211. 3 09/13/2015 KARTHIK IGLESIAS, AUDELIA Garza Ot 562. 10 09/13/2015 KARTHIK IGLESIAS, AUDELIA Garza Ot 600. 00 09/13/2015 KARTHIK IGLESIAS, AUDELIA Garza Ot V76. 51 09/13/2015 KARTHIK IGLESIAS, AUDELIA Garza Ot V72. 84 09/13/2015 SKIP IGLESIAS, ESTHER A Ot 272.4 09/13/2015 SKIP IGLESIAS, ESTHER A Ot 401.9 09/13/2015 SKIP IGLESAIS, ESTHER A Ot V10.11 09/13/2015 HAKAN MURDOCK MANAGER UNIX Ot Z08 09/13/2015 HAKAN MURDOCK MANAGER UNIX Ot Z85.118 09/13/2015 HAKAN MURDOCK MANAGER UNIX Ot F17.210 09/13/2015 HAKAN MURDOCK MANAGER UNIX Ot Z85.118 09/13/2015 HAKAN MURDOCK MANAGER UNIX Ot F17.210 09/13/2015 HAKAN MURDOCK MANAGER UNIX Ot Z85.118 10/06/2015 SKIP IGLESIAS, ESTHER Leung Ot R93.4 06/12/2016 HAWK IGLESIAS, TAMMY Ot 550.90 UNILAT INGUINAL HERNIA 06/12/2016 HAWK IGLESIAS, TAMMY Ot V72.63 PRE-PROCEDURAL LABORATORY EXAMINATION 06/12/2016 HAWK IGLESIAS, TAMMY Ot V74.8 SCREEN-BACTERIAL DIS NEC 06/12/2016 KARTHIK IGLESIAS, AUDELIA Garza Ot 211. 3 BENIGN NEOPLASM LG BOWEL 06/12/2016 KARTHIK IGLESIAS, AUDELIA Garza Ot 562. 10 DIVERTICULOSIS COLON (W/O MENT OF HEMORR 06/12/2016 AUDELIA ANGELES MD Ot 600. 00 HYPERTROPHY (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 06/12/2016 AUDELIA ANGELES MD Ot V76. 51 SCREEN MAL NEOP-COLON 06/12/2016 AUDELIA ANGELES MD Ot V72. 84 EXAM PRE-OPERATIVE NOS 06/12/2016 SKIP IGLESIAS, ESTHER Leung Ot 272.4 HYPERLIPIDEMIA NEC/NOS 06/12/2016 ESTHER VALDIVIA MD Ot 401.9 HYPERTENSION NOS 06/12/2016 ESTHER VALDIVIA MD Ot V10.11 HX-BRONCHOGENIC MALIGNAN 06/12/2016 HAKAN MURDOCKP Ot Z08 ENCNTR FOR FOLLOW-UP EXAM AFTER TRTMT FO 06/12/2016 HAKAN MURDOCK MANAGER UNIX Ot Z85.118 PERSONAL HISTORY OF MALIGNANT NEOPLASM O 06/12/2016 HAKAN MURDOCK MANAGER UNIX Ot F17.210 NICOTINE DEPENDENCE, CIGARETTES, UNCOMPL 06/12/2016 HAKAN MURDOCK MANAGER UNIX Ot Z85.118 PERSONAL HISTORY OF MALIGNANT NEOPLASM O 06/12/2016 SKIP IGLESIAS, ESTHER Leung Ot R93.4 ABNORMAL FINDINGS ON DIAGNOSTIC IMAGING 06/16/2016 HAKAN MURDOCK MANAGER UNIX Ot R91.1 SOLITARY PULMONARY NODULE 06/16/2016 HAKAN MURDOCKP Ot R91.1 SOLITARY PULMONARY NODULE 06/19/2016 HAKAN MURDOCKP Ot R91.1 SOLITARY PULMONARY NODULE 07/04/2016 ESTHER VALDIVIA MD, Ot C34.90 MALIGNANT NEOPLASM OF UNSP PART OF [facility] 07/07/2016 HAKAN MURDOCKP Ot R91.1 SOLITARY PULMONARY NODULE 10/02/2016 HAWK IGLESIAS, TAMMY Ot 550.90 UNILAT INGUINAL HERNIA 10/02/2016 HAWK IGLESIAS, TAMMY Ot V72.63 PRE-PROCEDURAL LABORATORY EXAMINATION 10/02/2016 HAWK IGLESIAS, TAMMY Ot V74.8 SCREEN-BACTERIAL DIS NEC 10/02/2016 KARTHIK IGLESIAS, AUDELIA Garza Ot 211. 3 BENIGN NEOPLASM LG BOWEL 10/02/2016 KARTHIK IGLESIAS, AUDELIA Garza Ot 562. 10 DIVERTICULOSIS COLON (W/O MENT OF HEMORR 10/02/2016 AUDELIA ANGELES MD Ot 600. 00 HYPERTROPHY (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 10/02/2016 AUDELIA ANGELES MD Ot V76. 51 SCREEN MAL NEOP-COLON 10/02/2016 AUDELIA ANGELES MD Ot V72. 84 EXAM PRE-OPERATIVE NOS 10/02/2016 ESTHER VALDIVIA MD Ot 272.4 HYPERLIPIDEMIA NEC/NOS 10/02/2016 ESTHER VALDIVIA MD Ot 401.9 HYPERTENSION NOS 10/02/2016 ESTHER VALDIVIA MD Ot V10.11 HX-BRONCHOGENIC MALIGNAN 10/02/2016 HAKAN MURDOCKP Ot Z08 ENCNTR FOR FOLLOW-UP EXAM AFTER TRTMT FO 10/02/2016 HAKAN MURDOCKP Ot Z85.118 PERSONAL HISTORY OF MALIGNANT NEOPLASM O 10/02/2016 HAKAN MURDOCKP Ot F17.210 NICOTINE DEPENDENCE, CIGARETTES, UNCOMPL 10/02/2016 HAKAN MURDOCKP Ot Z85.118 PERSONAL HISTORY OF MALIGNANT NEOPLASM O 10/02/2016 ESTHER VALDIVIA MD Ot R93.4 ABNORMAL FINDINGS ON DIAGNOSTIC IMAGING 10/02/2016 ESTHER VALDIVIA MD Ot C34.90 MALIGNANT NEOPLASM OF UNSP [facility] 10/02/2016 HAKAN MURDOCKP Ot R91.1 SOLITARY PULMONARY NODULE 10/02/2016 LETY CHIU APRN Ot I10 ESSENTIAL (PRIMARY) HYPERTENSION 10/02/2016 CHIU, PETER J POTATO PANCAKE FRIER Ot K57.30 DVRTCLOS OF LG INT W/O PERFORATION OR AB 10/02/2016 LETY CHIU POTATO PANCAKE FRIER Ot N28 .9 DISORDER OF KIDNEY AND URETER, UNSPECIFI 10/02/2016 LETY CHIU POTATO PANCAKE FRIER Ot N30.01 ACUTE CYSTITIS WITH HEMATURIA 10/02/2016 LETY CHIU POTATO PANCAKE FRIER Ot R31 .9 HEMATURIA, UNSPECIFIED 10/02/2016 LETY CHIU POTATO PANCAKE FRIER Ot 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 3 BENIGN NEOPLASM LG BOWEL 05/31/2017 KARTHIK IGLESIAS, AUDELIA Garza Ot 562. 10 DIVERTICULOSIS COLON (W/O MENT OF HEMORR 05/31/2017 AUDELIA ANGELES MD Ot 600. 00 HYPERTROPHY (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 05/31/2017 AUDELIA ANGELES MD Ot V76. 51 SCREEN MAL NEOP-COLON 05/31/2017 AUDELIA ANGELES MD Ot V72. 84 EXAM PRE-OPERATIVE NOS 05/31/2017 ESTHER VALDIVIA MD Ot 272.4 HYPERLIPIDEMIA NEC/NOS 05/31/2017 ESTHER VALDIVIA MD Ot 401.9 HYPERTENSION NOS 05/31/2017 ESTHER VALDIVIA MD Ot V10.11 HX-BRONCHOGENIC MALIGNAN 05/31/2017 HAKAN MURDOCK Ot Z08 ENCNTR FOR FOLLOW-UP EXAM AFTER TRTMT FO 05/31/2017 FRANCINE MURDOCKHANWILLIAMS GALLAGHERP Ot Z85.118 PERSONAL HISTORY OF MALIGNANT NEOPLASM [...] URETER, UNSPECIFI 06/29/2017 RIKI ARORA MD Ot K57.3 0 DVRTCLOS OF LG INT W/O PERFORATION OR AB 06/29/2017 RIKI ARORA MD Ot N28.8 9 OTHER SPECIFIED DISORDERS OF KIDNEY AND 08/18/2017 RODOLFO LUGO Ot S51.052A OPEN BITE, LEFT ELBOW, INITIAL ENCOUNTER 08/18/2017 RODOLFO LUGO Ot S59.902A UNSPECIFIED INJURY OF LEFT ELBOW, INITIA 08/18/2017 RODOLFO LUGO Ot W54.0XXA BITTEN BY DOG, INITIAL ENCOUNTER 08/18/2017 RODOLFO LUGO Ot Z 23 ENCOUNTER FOR IMMUNIZATION 01/12/2018 ELIZABETH EPPERSON MD Ot N39.0 URINARY TRACT INFECTION, SITE NOT SPECIF 01/12/2018 ELIZABETH EPPERSON MD Ot R30.0 DYSURIA 01/12/2018 ZHOU IGLESIAS, ELIZABETH Garza Ot Z87.891 PERSONAL HISTORY OF NICOTINE DEPENDENCE 03/29/2018 HAWK IGLESIAS, TAMMY Ot 550.90 UNILAT INGUINAL HERNIA 03/29/2018 HAWK IGLESIAS, TAMMY Ot V72.63 PRE-PROCEDURAL LABORATORY EXAMINATION 03/29/2018 HAWK IGLESIAS, TAMMY Ot V74.8 SCREEN-BACTERIAL DIS NEC 03/29/2018 KARTHIK IGLESIAS, AUDELIA Garza Ot 211. 3 BENIGN NEOPLASM LG BOWEL 03/29/2018 KARTHIK IGLESIAS, AUDELIA Garza Ot 562. 10 DIVERTICULOSIS COLON (W/O MENT OF HEMORR 03/29/2018 AUDELIA ANGELES MD Ot 600. 00 HYPERTROPHY (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 03/29/2018 KARTHIK IGLESIAS, AUDELIA Garza Ot V76. 51 SCREEN MAL NEOP-COLON 03/29/2018 KARTHIK IGLESIAS, AUDELIA Garza Ot V72. 84 EXAM PRE-OPERATIVE NOS 03/29/2018 SKIP IGLESIAS, ESTHER Leung Ot 272.4 HYPERLIPIDEMIA NEC/NOS 03/29/2018 ESTHER VALDIVIA MD Ot 401.9 HYPERTENSION NOS 03/29/2018 ESTHER VALDIVIA MD Ot V10.11 HX-BRONCHOGENIC MALIGNAN 03/29/2018 HAKAN MURDOCK Ot Z08 ENCNTR FOR FOLLOW-UP EXAM AFTER TRTMT FO 03/29/2018 HAKAN MURDOCK Ot Z85.118 PERSONAL HISTORY OF MALIGNANT NEOPLASM O 03/29/2018 HAKAN MURDOCK Ot F17.210 NICOTINE DEPENDENCE, CIGARETTES, UNCOMPL 03/29/2018 HAKAN MURDOCK Ot Z85.118 PERSONAL HISTORY OF MALIGNANT NEOPLASM O 03/29/2018 ESTHER VALDIVIA MD Ot R93.4 ABNORMAL FINDINGS ON DIAGNOSTIC IMAGING 03/29/2018 ESTHER VALDIVIA MD Ot C34.90 MALIGNANT NEOPLASM OF UNSP PART OF UNSP 03/29/2018 HAKAN MUDROCK Ot R91.1 SOLITARY PULMONARY NODULE 03/29/2018 ESTHER VALDIVIA MD Ot N28.9 DISORDER OF KIDNEY AND URETER, UNSPECIFI 03/29/2018 HAKAN MURDOCK Ot N28.9 DISORDER OF KIDNEY AND URETER, UNSPECIFI 03/29/2018 DEMETRA, TORIE M POTATO PANCAKE FRIER Ot N28.9 DISORDER OF KIDNEY AND URETER, UNSPECIFI 03/29/2018 RIKI ARORA MD Ot K57.3 0 DVRTCLOS OF LG INT W/O PERFORATION OR AB 03/29/2018 RIKI ARORA MD Ot N28.8 9 OTHER SPECIFIED DISORDERS OF KIDNEY AND 04/01/2018 DALILA IGLESIAS, LEDY Moran Ot Z01.818 ENCOUNTER FOR OTHER PREPROCEDURAL EXAMIN 04/04/2018 TAMMY ARECHIGA MD Ot 550.90 UNILAT INGUINAL HERNIA 04/04/2018 TAMMY ARECHIGA MD Ot V72.63 PRE-PROCEDURAL LABORATORY EXAMINATION 04/04/2018 TAMYM ARECHIGA MD Ot V74.8 SCREEN-BACTERIAL DIS NEC 04/04/2018 KARTHIK IGLESIAS, AUDELIA Garza Ot 211. 3 BENIGN NEOPLASM LG BOWEL 04/04/2018 KARTHIK IGLESIAS, AUDELIA Garza Ot 562. 10 DIVERTICULOSIS COLON (W/O MENT OF HEMORR 04/04/2018 AUDELIA ANGELSE MD Ot 600. 00 HYPERTROPHY (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 04/04/2018 KARTHIK IGLESIAS, AUDELIA Garza Ot V76. 51 SCREEN MAL NEOP-COLON 04/04/2018 AUDELIA ANGELES MD Ot V72. 84 EXAM PRE-OPERATIVE NOS 04/04/2018 SKIP IGLESIAS, ESTHER Leung Ot 272.4 HYPERLIPIDEMIA NEC/NOS 04/04/2018 ESTHER VALDIVIA MD Ot 401.9 HYPERTENSION NOS 04/04/2018 ESTHER VALDIVIA MD Ot V10.11 HX-BRONCHOGENIC MALIGNAN 04/04/2018 HAKAN MURDOCK Ot Z08 ENCNTR FOR FOLLOW-UP EXAM AFTER TRTMT FO 04/04/2018 HAKAN MURDOCK Ot Z85.118 PERSONAL HISTORY OF MALIGNANT NEOPLASM O 04/04/2018 HAKAN MURDOCK Ot F17.210 NICOTINE DEPENDENCE, CIGARETTES, UNCOMPL 04/04/2018 HAKAN MURDOCK Ot Z85.118 PERSONAL HISTORY OF MALIGNANT NEOPLASM O 04/04/2018 ESTHER VALDIVIA MD Ot R93.4 ABNORMAL FINDINGS ON DIAGNOSTIC IMAGING 04/04/2018 ESTHER VALDIVIA MD Ot C34.90 MALIGNANT NEOPLASM OF UNSP PART OF UNSP 04/04/2018 HAKAN MURDOCK Ot R91.1 SOLITARY PULMONARY NODULE 04/04/2018 ESTHER VALDIVIA MD Ot N28.9 DISORDER OF KIDNEY AND URETER, UNSPECIFI 04/04/2018 HAKAN MURDOCK Ot N28.9 DISORDER OF KIDNEY AND URETER, UNSPECIFI 04/04/2018 TORIE MCCRARY APRN Ot N28.9 DISORDER OF KIDNEY AND URETER, UNSPECIFI 04/04/2018 RIKI ARORA MD Ot K57.3 0 DVRTCLOS OF LG INT W/O PERFORATION OR AB 04/04/2018 RIKI ARORA MD Ot N28.8 9 OTHER SPECIFIED DISORDERS OF KIDNEY AND 04/04/2018 LEDY CONNER MD Ot C44.310 BASAL CELL CARCINOMA OF SKIN OF UNSPECIF 04/04/2018 LEDY CONNER MD Ot I1 0 ESSENTIAL (PRIMARY) HYPERTENSION 04/04/2018 LEDY CONNER MD Ot Z79.82 SHELTER (CURRENT) USE OF ASPIRIN 04/04/2018 LEDY CONNER MD Ot Z87.891 PERSONAL HISTORY OF NICOTINE DEPENDENCE 04/10/2018 LEDY CONNER MD Ot C44.310 BASAL CELL CARCINOMA OF SKIN OF UNSPECIF 04/10/2018 LEDY CONNER MD Ot I1 0 ESSENTIAL (PRIMARY) HYPERTENSION 04/10/2018 LEDY CONNER MD Ot Z79.82 SHELTER (CURRENT) USE OF ASPIRIN 04/10/2018 LEDY CONNER MD Ot Z87.891 PERSONAL HISTORY OF NICOTINE DEPENDENCE 02/24/2019 TORIE MCCRARY APRN Ot R91.8 OTHER NONSPECIFIC ABNORMAL FINDING OF CLAU 10/15/2019 ESTHER VALDIVIA MD Ot C80.1 MALIGNANT (PRIMARY) NEOPLASM, UNSPECIFIE 10/15/2019 ESTHER VALDIVIA MD Ot N28.89 OTHER SPECIFIED DISORDERS OF KIDNEY AND 10/15/2019 ESTHER VALDIVIA MD Ot C80.1 MALIGNANT (PRIMARY) NEOPLASM, UNSPECIFIE 10/15/2019 ESTHER VALDIVIA MD Ot N28.89 OTHER SPECIFIED DISORDERS OF KIDNEY AND 10/30/2019 ESTHER VALDIVIA MD Ot C80.1 MALIGNANT (PRIMARY) NEOPLASM, UNSPECIFIE 10/30/2019 ESTHER VALDIVIA MD Ot N28.89 OTHER SPECIFIED DISORDERS OF KIDNEY AND 12/15/2019 AUDELIA ANGELES MD Ot Z01.818 ENCOUNTER FOR OTHER PREPROCEDURAL EXAMIN 12/15/2019 AUDELIA ANGELES MD Ot Z01.818 ENCOUNTER FOR OTHER PREPROCEDURAL EXAMIN Procedures There is no data. Results Test Result Range Complete urinalysis with reflex to cultu re - 10/02/16 12:10 Urine color determination RED NRG Urine clarity determination BLOODY NR G Urine pH measurement by test strip 7 5-9 Specific gravity of urine by test strip 1.010 1.016-1.022 Urine protein assay by test strip, semi-quantitative 3+ NEGATIVE Urine glucose detection by automated test strip NE GATIVE NEGATIVE Erythrocytes detection in urine sediment by light micr oscopy 5+ NEGATIVE Urine ketones detection by automated test strip NE GATIVE NEGATIVE Urine nitrite detection by test strip NEGATIVE NEGATIVE Urine total bilirubin detection by test strip NEGA TIVE NEGATIVE Urine urobilinogen measurement by automated test strip (mass/volume) NORMAL NORMAL Urine leukocyte esterase detection by dipstick 3+ NEGATIVE Automated urine sediment erythrocyte cou nt by microscopy (number/high power field) TNTC NRG Automated urine sediment leukocyte count by microscopy (number/high power field) [HPF] NRG Bacteria detection in urine sediment by light microsco py NEGATIVE NRG Squamous epithelial cells detection in u rine sediment by light microscopy NONE NRG Crystals detection in urine sediment by light microsco py NONE NRG Casts detection in urine sediment by light microscopy NONE NRG Mucus detection in urine sediment by light microscopy NEGATIVE NRG Complete urinalysis with reflex to culture YES NRG Bacterial urine culture - 10/02/16 12:10 Bacterial urine culture NG NRG Complete blood count (CBC) with automate d white blood cell (WBC) differential - 10/02/16 12:23 Blood leukocytes automated count (number/volume) 11.7 10*3/uL 4.3-11.0 Blood erythrocytes automated count (number/volume) 4.95 10*6/uL 4.35-5.85 Venous blood hemoglobin measurement (mass/volume) 15.2 g/dL 13.3-17.7 Blood hematocrit (volume fraction) 43 % 40-54 Automated erythrocyte mean corpuscular volume 88 [ foz_us] 80-99 Automated erythrocyte mean corpuscular h emoglobin (mass per erythrocyte) 31 pg 25-34 Automated erythrocyte mean corpuscular h emoglobin concentration measurement (mass/volume) 35 g/dL 32-36 Automated erythrocyte distribution width ratio 12. 6 % 10.0- 14.5 Automated blood platelet count (count/volume) 272 10*3/uL [...] 10*3 1.0-4.0 Blood monocytes automated count (number/volume) 1. 5 10*3 0.0-1.0 Automated eosinophil count 0.2 10*3/uL 0 .0-0.3 Automated blood basophil count (count/volume) 0.0 10*3/uL 0.0-0.1 PT panel in platelet poor plasma by coag ulation assay - 10/02/16 12:23 Prothrombin time (PT) in platelet poor plasma by coagu lation assay 13.0 s 12.2-14.7 INR in platelet poor plasma or blood by coagulation as say 1.0 0.8-1.4 Comprehensive metabolic panel - 10/02/16 12:23 Serum or plasma sodium measurement (moles/volume) 135 mmol/L 135-145 Serum or plasma potassium measurement (moles/volume) 3.9 mmol/L 3.6-5.0 Serum or plasma chloride measurement (moles/volume) 100 mmol/L 98-107 Carbon dioxide 22 mmol/L 21-32 Serum or plasma anion gap determination (moles/volume) 13 mmol/L 5-14 Serum or plasma urea nitrogen measurement (mass/volume ) 15 mg/dL 7-18 Serum or plasma creatinine measurement (mass/volume) 1.19 mg/dL 0.60-1.30 Serum or plasma urea nitrogen/creatinine mass ratio 13 NRG Serum or plasma creatinine measurement w ith calculation of estimated glomerular filtration rate > NRG Serum or plasma glucose measurement (mass/volume) 103 mg/dL 70-105 Serum or plasma calcium measurement (mass/volume) 9.7 mg/dL 8.5-10.1 Serum or plasma total bilirubin measurement (mass/volu me) 0.5 mg/dL 0.1-1.0 Serum or plasma alkaline phosphatase triston surement (enzymatic activity/volume) 69 U/L 40-136 Serum or plasma aspartate aminotransfera se measurement (enzymatic activity/volume) 30 U/L 5-34 Serum or plasma alanine aminotransferase measurement (enzymatic activity/volume) 32 U/L 0-55 Serum or plasma protein measurement (mass/volume) 7.5 g/dL 6.4-8.2 Serum or plasma albumin measurement (mass/volume) 4.4 g/dL 3.2-4.5 [id number] - 06/04/17 08:04 Serum or plasma urea nitrogen measurement (mass/volume ) 14 mg/dL 7-18 Serum or plasma creatinine measurement (mass/volume) 1.13 mg/dL 0.60-1.30 Serum or plasma urea nitrogen/creatinine mass ratio 12 NRG Serum or plasma creatinine measurement w ith calculation of estimated glomerular filtration rate > NRG Complete urinalysis with reflex to cultu re - 01/12/18 12:10 Urine color determination OTHER NRG Urine clarity determination SLIGHTLY CLOUDY NRG Urine pH measurement by test strip 6 5-9 Specific gravity of urine by test strip 1.010 1.016-1.022 Urine protein assay by test strip, semi-quantitative 3+ NEGATIVE Urine glucose detection by automated test strip NE GATIVE NEGATIVE Erythrocytes detection in urine sediment by light micr oscopy 5+ NEGATIVE Urine ketones detection by automated test strip NE GATIVE NEGATIVE Urine nitrite detection by test strip NEGATIVE NEGATIVE Urine total bilirubin detection by test strip NEGA TIVE NEGATIVE Urine urobilinogen measurement by automated test strip (mass/volume) NORMAL NORMAL Urine leukocyte esterase detection by dipstick 3+ NEGATIVE Automated urine sediment erythrocyte cou nt by microscopy (number/high power field) TNTC NRG Automated urine sediment leukocyte count by microscopy (number/high power field) [HPF] NRG Bacteria detection in urine sediment by light microsco py MODERATE NRG Squamous epithelial cells detection in u rine sediment by light microscopy NONE NRG Crystals detection in urine sediment by light microsco py NONE NRG Casts detection in urine sediment by light microscopy NONE NRG Mucus detection in urine sediment by light microscopy NEGATIVE NRG Complete urinalysis with reflex to culture YES NRG Bacterial urine culture - 01/12/18 12:10 Bacterial urine culture NG NRG Methicillin resistant Staphylococcus aur eus (MRSA) screening culture - 04/04/18 10:25 Methicillin resistant Staphylococcus aureus (MRSA) scr eening culture NEG NRG [id number] - 10/10/19 08:32 Serum or plasma urea nitrogen measurement (mass/volume ) 15 mg/dL 7-18 Serum or plasma creatinine measurement (mass/volume) 1.17 mg/dL 0.60-1.30 Serum or plasma urea nitrogen/creatinine mass ratio 13 NRG Serum or plasma creatinine measurement w ith calculation of estimated glomerular filtration rate > NRG Coronavirus SARS-CoV-2 SO 2018 - 0 13:10 Coronavirus Ab [Units/volume] in Serum Negative Negative Encounters ACCT No. Visit Date/Time Discharge Status Pt. Type Provider Facility Loc./Unit Complaint [id number] 12/15/2019 08:30:00 020 16:13:00 DIS Outpatient KARTHIK IGLESIAS, AUDELIA Garza [facility] PREOP COLONOSCOPY [id number] 10/10/2019 08:24:00 020 23:59:59 CLS Outpatient ESTHER VALDIVIA MD [facility] RAD SMALL CELL CA,RENAL MA SS [id number] 01/29/2019 10:37:00 019 23:59:59 CLS Outpatient TORIE MCCRARY APRN [facility] RAD CHEST X-RAY [id number] 04/04/2018 10:04:00 018 14:00:00 DIS Outpatient LEDY CONNER MD [facility] SDC SKIN LESION [id number] 04/01/2018 05:48:00 018 09:29:00 DIS Outpatient LEDY CONNER MD [facility] PREOP SKIN LESION [id number] 01/12/2018 11:40:00 018 13:32:00 DIS Emergency ELIZABETH EPPERSON MD [facility] ER PAIN WITH URINA TION [id number] 08/18/2017 10:48:00 018 12:32:00 DIS Emergency RODOLFO LUGO [facility] ER L ELBOW INJ [id number] 06/04/2017 07:57:00 017 23:59:59 CLS Outpatient RIKI ARORA MD [facility] RAD R RENAL MASS [id number] 01/30/2017 09:06:00 017 23:59:59 CLS Outpatient TORIE MCCRARY POTATO PANCAKE FRIER [facility] RAD HX OF ABNORMAL CT HEMO RRHAGIC CYST [id number] 10/24/2016 07:54:00 017 23:59:59 CLS Outpatient HAKAN MURDOCK [facility] RAD INDETERMINATE N ODULE IN THE RT KIDNEY [id number] 10/05/2016 13:00:00 017 23:59:59 CLS Outpatient ESTHER VALDIVIA MD [facility] RAD RENAL NODULE [id number] 10/02/2016 12:01:00 017 14:22:00 DIS Emergency LETY CHIU POTATO PANCAKE FRIER [facility] ER BLOOD IN URINE [id number] 06/16/2016 09:13:00 016 23:59:59 CLS Outpatient HAKAN MURDOCK [facility] RAD RT LUNG NODULE [id number] 06/12/2016 08:20:00 016 23:59:59 CLS Outpatient ESTHER VALDIVIA MD [facility] RAD SMALL CELL LUNG CANCER [id number] 09/13/2015 12:54:00 016 23:59:59 CLS Outpatient ESTHER VALDIVIA MD [facility] RAD ABNORMALITY OF LT JAMIE L SEGMENT [id number] 09/01/2015 08:26:00 016 23:59:59 CLS Outpatient HAKAN MURDOCK [facility] RAD TOBACCOISM, HX OF LUNG CANCER [id number] 08/16/2015 09:29:00 016 23:59:59 CLS Outpatient HAKAN MURDOCK [facility] RAD HX OF LUNG CANC ER [id number] 01/11/2015 07:50:00 015 23:59:59 CLS Outpatient ESTHER VALDIVIA MD [facility] RAD HX OF SMALL CELL CA [id number] 08/11/2014 08:14:00 015 23:59:59 CLS Outpatient AUDELIA ANGELES MD [facility] SCREENING [id number] 08/07/2014 06:04:00 015 23:59:59 CLS Outpatient AUDELIA ANGELES MD [facility] PREOP SCREENING [id number] 02/19/2014 06:57:00 014 14:00:00 DIS Outpatient TAMMY ARECHIGA MD [facility] LEFT INGUINAL HERNIA [id number] 02/12/2014 07:35:00 014 23:59:59 CLS Outpatient TAMMY ARECHIGA MD [facility] PREOP LEFT INGUINAL HERNIA [id number] 12/19/2019 09:30:00 P EN Preadmit AUDELIA ANGELES MD [facility] ENDO HX COLON POLYPS
[2019-12-19] MEDS ORDERED: LIDOCAINE JELLY 2% 6 ML SYRINGE ONE (09:31)
--- NOTE | 2019-12-19 10:10 | Pre-Op Note & Conscious Sedat ---
Pre-Operative Progress Note H&P Reviewed The H&P was reviewed, patient examined and no changes noted. Date H&P Reviewed: December 19, 2019 Time H&P Reviewed: 09:10 Conscious Sedation Pre-Proced ASA Score 2 For ASA 3 and 4: Consider anesthesia and medical clearance. Also, for patients with a history of failed moderate sedation consider anesthesia. Airway Lungs Heart ASA score ASA 1: a normal healthy patient ASA 2: a patient with a mild systemic disease (mid diabetes, controlled hypertension, obesity ASA 3: a patient with a severe systemic disease that limits activity (angina, COPD, prior Myocardial infarction) ASA 4: a patient with an incapacitating disease that is a constant threat to life (CHF, renal failure) ASA 5: a moribund patient not expected to survive 24 hrs. (ruptured aneurysm) ASA 6: a declared brain- patient whose organs are being harvested. For emergent operations, add the letter E after the classification Mallampati Classification Grade 2 Sedation Plan Analgesia, Amnesia, Plan communicated to team members, Discussed options with patient/fam, Discussed risks with patient/fam The patient is an appropriate candidate to undergo the planned procedure, sedation, and anesthesia. The patient immediately re-assessed prior to indication. AUDELIA ANGELES MD December 19, 2019 10:10
--- NOTE | 2019-12-19 17:33 | OPERATIVE REPORT ---
DATE OF SERVICE: COLONOSCOPY SUMMARY INDICATION FOR THE PROCEDURE: Surveillance colonoscopy due to history of colon polyps. DESCRIPTION OF PROCEDURE: The patient was placed in the left lateral decubitus position. Prior to undergoing colonoscopy, digital rectal evaluation was performed. Anal sphincter tone was normal. Perianal reflexes intact. No colonic abnormalities were noted in regards to digital inspection of anal canal or distal rectal vault. The prostate is moderately enlarged and there is a small 4 to 5 mm hard nodule along the upper outer margin on the left side of the prostate. The colonoscope was then inserted into the rectum and under direct visualization advanced to cecum. The cecum was identified by identification of the ileocecal valve and cecal strap. Photographic documentation was obtained. The patient tolerated the procedure well. FINDINGS: There was no evidence for internal or external hemorrhoids and the rectum was unremarkable. Mild to moderate number of small to medium size sigmoid diverticulum were present without evidence for diverticulitis. No other sigmoid colonic abnormalities were appreciated. The descending colon, splenic flexure, transverse colon and hepatic flexure were unremarkable. Present in the proximal ascending colon was a 5 to 6 mm sessile polyp. It was biopsied and ablated and submitted for histopathology after photographic documentation. No significant blood loss was noted. ASSESSMENT: 1. A 5 to 6 mm sessile polyp was removed from the proximal ascending colon. As long as there is no surprise on histopathology report, would advocate repeat surveillance colonoscopy in 5 years as long as the patient's health remains good. 2. There is a 5 mm firm nodule involving the upper outer left quadrant of the prostate suspicious for underlying cancer. Discussed this finding with the patient. He believes that he has had a urology visit in the last 2 to 3 years, but does not know if it was specifically for a nodule. He is going to be getting some screening labs that he believes the PSA as part of, with an upcoming visit with Dr. Lane. I thank you for the referral of this pleasant gentleman. Job ID: [id number] DocumentID: [id number] Dictated Date: 12/19/2019 11:44:49 Circular Sawyer Helper Date: 12/19/2019 17:31:50 Dictated By: AUDELIA ANGELES MD MTDD
== END 2019-12-19 10:55 | disposition home or self-care (01) ==
LOC: ENDO 08:00
PROVIDERS: ATTEND Internal Medicine
DX: Z12.11 Encounter for screening for malignant neoplasm of colon (principal); D12.2 Benign neoplasm of ascending colon; K57.30 Diverticulosis of large intestine without perforation or abscess without bleeding; N40.0 Benign prostatic hyperplasia without lower urinary tract symptoms; I10 Essential (primary) hypertension; E78.5 Hyperlipidemia, unspecified; Z79.82 Long term (current) use of aspirin; Z79.899 Other long term (current) drug therapy; Z87.891 Personal history of nicotine dependence; Z86.010 Personal history of colon polyps

== ENCOUNTER → 2020-07-20 | Outpatient (CLI) | payer MEDICARE, OTHER | LOC: LABNPT 05:11 | PROVIDERS: ATTEND Family Medicine | DX: Z11.59 Encounter for screening for other viral diseases (principal); R05 Cough | CPT/HCPCS: 87635 ==

== ENCOUNTER → 2020-08-05 | Outpatient (CLI) | payer MEDICARE, OTHER ==
--- NOTE | 2020-08-05 13:22 | Diagnostic Imaging Report ---
INDICATION: Cough, shortness of breath. COMPARISON: 01/29/[address] dated 10/10/2019. TECHNIQUE: Two radiographs of the chest are obtained dated 08/05/2020. FINDINGS: The cardiac silhouette is within normal limits in size. No significant pulmonary vascular congestion. Left suprahilar masslike density is present, appearing to be a change from the prior examination with associated additional opacities within the left upper lung. Volume loss within the left lung is noted with mild elevation of the left hemidiaphragm. The right lung is clear. No significant pleural effusion. No pneumothorax. No acute osseous abnormality. IMPRESSION: New left suprahilar masslike density with additional opacities extending into the left upper lung. Findings may relate to a developing infiltrate such as pneumonia. However, developing mass lesion with postobstructive atelectasis and/or pneumonia should be considered. A CT of the chest, preferably with intravenous contrast is recommended for further evaluation. Report given and faxed to Dr. Lane's office at 1:20 PM 08/05/2020/irena Dictated by: Dictated on workstation # [id number]
== END ==
LOC: RAD 12:27
PROVIDERS: ATTEND Family Medicine
DX: J98.4 Other disorders of lung (principal); R91.8 Other nonspecific abnormal finding of lung field
CPT/HCPCS: 71046

== ENCOUNTER → 2020-08-11 | Outpatient (CLI) | payer MEDICARE, OTHER ==
[~2020-08-11] MED LIST changes: +CATHETER FLUSH 10 ML SYR IV PRN; +HOLD METFORMIN - RECEIVED CONTRAST 20 ML VIAL IV SCH; +IOHEXOL 350 MG/ML 100 ML (OMNIPAQUE 350) VIAL IV ONE; +NS 100 ML (IVPB) BAG IV ONE
[2020-08-11 12:38] LABS: CREATININE SERUM 1.24 MG/DL (0.60-1.30)
--- NOTE | 2020-08-11 13:31 | Diagnostic Imaging Report ---
PROCEDURE: CT chest with contrast only. TECHNIQUE: Multiple contiguous axial images were obtained through the chest after administration of intravenous contrast. Auto Exposure Controls were utilized during the CT exam to meet ALARA standards for radiation dose reduction. INDICATION: Left lung mass and cough as well as chest pain. Correlation is made with prior CT chest study from 10/10/2019. No axillary lymphadenopathy is identified. A soft tissue mass has developed in the left paramediastinal location, inseparable from the aortic arch measuring 9.8 cm AP x 3.3 cm transverse. This extends from the left apex into the left hilum. There has also been development of a subcarinal mass measuring 3.6 x 3.0 cm. Soft tissue to the left of the esophagus and anterior to the descending thoracic aorta at the level of the left atrium is seen measuring 2.8 x 1.6 cm. The right hilum is unremarkable. Small effusion on the left side has developed. No right-sided effusion or pericardial effusion is identified. The remainder of the lung pablo appear to be fairly clear. Upper abdomen demonstrates a hyperenhancing lesion in the right lobe, similar to prior exam. No adrenal mass is identified. IMPRESSION: Soft tissue mass left upper lobe paramediastinal location extending to the left hilum as well as mediastinal lymphadenopathy. Finds are consistent with tumor recurrence and metastatic disease. A small left effusion has developed as well. Dictated by: Dictated on workstation # [id number]
== END ==
LOC: RAD 12:00
PROVIDERS: ATTEND Family Medicine
DX: R91.8 Other nonspecific abnormal finding of lung field (principal); I31.3 Pericardial effusion (noninflammatory); R59.0 Localized enlarged lymph nodes
CPT/HCPCS: 36415; 71260; 82565; 84520

== ENCOUNTER 2020-08-13 09:10 | Outpatient (CLI) | payer MEDICARE, OTHER ==
[2020-08-13] VITALS (18 sets, daily range): BP systolic 101–131; BP diastolic 47–89
[~2020-08-13 09:10] MED LIST changes: -CATHETER FLUSH 10 ML SYR IV PRN; -HOLD METFORMIN - RECEIVED CONTRAST 20 ML VIAL IV SCH; -IOHEXOL 350 MG/ML 100 ML (OMNIPAQUE 350) VIAL IV ONE; -NS 100 ML (IVPB) BAG IV ONE
[2020-08-13 09:43] LABS: HEMOGLOBIN 14.2 g/dL (13.3-17.7); MEAN PLATELET VOLUME 8.1 fL (9.0-12.2); WHITE BLOOD COUNT 10.5 10^3/uL (4.3-11.0)
[2020-08-13] MEDS ORDERED: NS IV 1000 ML 1,000 ML IV STA (09:49)
[2020-08-13 09:56] LABS: PROTHROMBIN TIME PATIENT 13.4 SEC (12.2-14.7)
[2020-08-13] MEDS ORDERED: LIDOCAINE 1% INJ 20 ML 20 ML VIAL INJ ONE (10:00)
[2020-08-13] MEDS ORDERED: MIDAZOLAM 2 MG/2 ML (VERSED) VIAL IVP ONE (10:00)
[2020-08-13] MEDS ORDERED: fentaNYL INJECTION 100 MCG/2 ML AMP IVP ONE (10:00)
--- NOTE | 2020-08-13 14:30 | Diagnostic Imaging Report ---
INDICATION: Post lung biopsy. TIME OF EXAM: 01:40 p.m. COMPARISON: Correlation is made with prior chest from 08/05/2020. FINDINGS: Expiratory chest radiograph was performed. No pneumothorax is identified, status post left lung biopsy. Mass in left upper lobe is again noted, obscuring aortic arch. IMPRESSION: No evidence of pneumothorax, status post left lung biopsy. Dictated by: Dictated on workstation # [id number]
--- NOTE | 2020-08-13 14:36 | Diagnostic Imaging Report ---
INDICATION: Left lung mass. Patient presents for biopsy. TECHNIQUE: All CT scans use one or more of the following dose optimizing techniques: automated exposure control, MA and/or KvP adjustment based on patient size and exam type or iterative reconstruction. FINDINGS: Patient was brought to CT suite and placed on the table in the cjrym-skde-[id number] decubitus position. Axial imaging through the chest was performed to evaluate appropriate entry site. Procedure was performed utilizing conscious sedation with radiology nursing and constant patient monitoring. Patient was given a total of 100 mg of fentanyl intravenously. Total procedure time is 38 minutes. Left posterior upper thorax was prepped and draped in the usual sterile fashion. A small amount of 1% lidocaine was utilized for local anesthesia. 18-gauge coaxial Temno needle was advanced and placed into the soft tissue mass in the left upper lobe paramediastinal location. Total of four core biopsies were obtained. A blood patch was injected during needle removal. Hemostasis was obtained using manual compression. Patient tolerated the procedure well and left the department in stable condition. IMPRESSION: Successful CT-guided core biopsy of the left paramediastinal mass in the left upper lobe, utilizing conscious sedation. Pathology results are currently pending. Dictated by: Dictated on workstation # [id number]
== END 2020-08-13 14:10 | disposition home or self-care (01) ==
LOC: SDC 09:10 → RAD 14:10
PROVIDERS: ATTEND Family Medicine
DX: R91.8 Other nonspecific abnormal finding of lung field (principal); Z98.890 Other specified postprocedural states
CPT/HCPCS: 36415; 71045; 77012; 85027; 85610; 85730

== ENCOUNTER → 2020-08-17 | Outpatient (CLI) | payer MEDICARE, OTHER ==
--- NOTE | 2020-08-17 17:19 | Diagnostic Imaging Report ---
PET/CT INDICATION: Lung mass TECHNIQUE: PET/CT imaging was obtained from the base of the skull through the pelvis after the administration of 11.55 mCi of F-18 fluorodeoxyglucose into the left antecubital fossa. Limited CT imaging was utilized for localization and attenuation correction purposes. The low energy CT utilized for attenuation correction is not considered to be of high enough spatial resolution to allow in and of itself a separate anatomical analysis. Height: 5 feet, 9 inches. Weight: 200 pounds. Blood glucose: 106 There are no prior PET/CT examinations available for comparison. The CT chest exam performed on 08/11/2020 did note a soft tissue mass in the left upper lobe paramediastinal region with extension into the left hilum and subcarinal region. Those findings are again evident on this exam. These abnormal masses are extremely hypermetabolic with the mass in the subcarinal region showing a maximum SUV of 18.4. The other masses have SUV values in the 14-16 range. There are also a few hypermetabolic nodes in the anterior mediastinum on the right. These have a maximum SUV of 5.1. In addition, there is a hypermetabolic supraclavicular node on the right with a maximum SUV of 6.8. Furthermore, there is a plaque-like area of hypermetabolic activity along the posterior aspect of the left lung base. This has a maximum SUV of 11.3. A small focal hypermetabolic nodule along the anterior aspect of the left lung is also seen. This has a maximum SUV of 4.1. In addition, there appears to be involvement of several of the lower ribs on the left by metastatic disease. These have a maximum SUV of 9.9. There is also an isolated focus of hypermetabolic activity along the periphery of the right lobe of the liver. This has a maximum SUV of 8.1 and measures approximately 1.5 cm in size. The images through the low pelvis also show slightly increased activity in the lesser trochanter of the right femur. This has a maximum SUV of 2.4. This finding is suspicious for metastatic disease although not conclusive. Physiologic activity is seen in the kidneys, bowel, bladder and brain. There is no acute abnormality identified but the amount of fluid in the left lung base has increased since the prior exam. The fluid now measures 3.3 cm in maximum depth as opposed to 2.2 cm previously. IMPRESSION: 1. The large left lung mass, the left hilar and subcarinal adenopathy seen previously are intensely hypermetabolic, consistent with neoplastic disease. There are also hypermetabolic nodes in the anterior mediastinum and supraclavicular region on the right and there is a plaque-like area of neoplastic involvement of the posterior aspect of the left lung base. There is also evidence of metastatic disease to the right lobe of the liver and possibly to the lesser trochanter of the right femur. 2. There is no acute abnormality identified. There has been a slight increased amount of pleural fluid in the left lung base since the prior exam, however. Dictated by: Dictated on workstation # [id number]
== END ==
LOC: RAD 13:14
PROVIDERS: ATTEND Family Medicine
DX: D49.1 Neoplasm of unspecified behavior of respiratory system (principal)
CPT/HCPCS: 78815; A9552

== ENCOUNTER 2020-08-25 09:57 | Emergency (ER) | payer MEDICARE, OTHER ==
[~2020-08-25] VITALS: Ht 175 cm; Wt 91.0 kg
--- NOTE | 2020-08-25 10:43 | ED General ---
General Chief Complaint: Neurological Problems Stated Complaint: WEAKNESS History of Present Illness Date Seen by Provider: Aug 25, 2020 Time Seen by Provider: 10:08 Initial Comments Patient is a 69-year-old male who presents to the emergency room today with a chief complaint of feeling weak and getting very sweaty while on the toilet having a bowel movement. Patient has a history of small cell lung cancer and recently saw his oncologist yesterday. Apparently his cancer has returned. Patient states that he was feeling a little bit weak when he was eating breakfast and got up to go to the bathroom. Patient endorses a diarrheal stool. He states at that point he became so weak and diaphoretic he had to have family assistance to get him to the floor. At this time the patient states he feels 100% better he has no complaints of chest pain, shortness of breath, vomiting nausea or other complaints. He does feel at baseline little short of air all the time secondary to his lung cancer. Patient did state approximately 15 to 20 minutes prior to this event he took one of his hydrocodone pills. No recent illnesses such as fevers chills or upper respiratory symptoms. All other review of systems reviewed and negative except as stated. Allergies and Home Medications Allergies Coded Allergies: No Known Drug Allergies (Unverified , 04/01/18) Home Medications C,E,Zinc,Copper 11/Behkc4a/Lut 1 Each Capsule, 1 EACH PO DAILY, (Reported) Carvedilol 3.125 Mg Tablet, 3.125 MG PO BID, (Reported) Lisinopril/Hydrochlorothiazide 1 Each Tablet, 1 EACH PO DAILY, (Reported) Lovastatin 40 Mg Tablet, 40 MG PO DAILY, (Reported) Omeprazole 20 Mg Capsule.dr, 20 MG PO DAILY, (Reported) Patient Home Medication List Home Medication List Reviewed: Yes Review of Systems Review of Systems Constitutional: see HPI, weakness, other (Diaphoresis) EENTM: no symptoms reported Respiratory: cough, short of breath (Chronically a little bit short of breath with a cough) Cardiovascular: no symptoms reported Gastrointestinal: no symptoms reported Genitourinary: no symptoms reported Musculoskeletal: no symptoms reported Skin: no symptoms reported All Other Systems Reviewed Negative Unless Noted: Yes Past Rwaxlbj-Cvotxr-Armlxe Hx Patient Social History Alcohol Beverage of Choice: Whiskey, Chazy Former Smoker, Quit: Apr 01, 2000 Recent Hopitalizations: No Immunizations Up To Date Tetanus Booster (TDap): Unknown Date of Influenza Vaccine: May 21, 2019 Seasonal Allergies Seasonal Allergies: No Past Medical History Surgeries: Yes (WISDOM TEETH REMOVAL, INGUINAL HERNIA) Respiratory: No Cardiac: Yes High Cholesterol, Hypertension Neurological: No Reproductive Disorders: No Sexually Transmitted Disease: No HIV/AIDS: No Genitourinary: No Gastrointestinal: Yes Polyps Musculoskeletal: Yes (SHOULDERS) Arthritis Endocrine: No HEENT: No Loss of Vision: Bilateral Hearing Impairment: Denies Cancer: Yes (SMALL CELL LUNG) Did You Recieve Any Treatments: Yes What Type of Treatment Did You: Chemotherapy, Radiation Psychosocial: No Integumentary: No Blood Disorders: No Adverse Reaction/Blood Tranf: No (N/A) Family Medical History No Pertinent Family Hx Physical Exam Vital Signs Vital Signs - First Documented 08/25/20 09:58 Temp 35.2 Pulse 71 Resp 18 B/P (MAP) 136/86 (103) Pulse Ox 96 O2 Delivery Room Air Capillary Refill : Height, Weight, BMI Height: 5'9.00" Weight: 200lbs. 0.0oz. [id number]; 30.32 BMI Method:Stated General Appearance: No Apparent Distress, WD/WN Neck: Full Range of Motion Respiratory: No Accessory Muscle Use, No Respiratory Distress, Rhonci (Scattered rhonchi on auscultation posteriorly) Cardiovascular: Regular Rate, Rhythm Gastrointestinal: Normal Bowel Sounds, Non Tender Back: Normal Inspection Extremity: Normal Capillary Refill, Normal Inspection, Normal Range of Motion, Non Tender, No Pedal Edema Neurologic/Psychiatric: Alert, Oriented x3, No Motor/Sensory Deficits, Normal Mood/Affect, owner operator II-XII Norm as Tested Skin: Normal Color, Warm/Dry Progress/Results/Core Measures Suspected Sepsis SIRS Temperature: Pulse: Respiratory Rate: Laboratory Tests 08/25/20 10:23: White Blood Count 8.9 Blood Pressure / Mean: Laboratory Tests 08/25/20 10:23: Creatinine 1.20, Platelet Count 330 Results/Orders Lab Results Laboratory Tests Test 08/25/20 10:23 Range/Units White Blood Count 8.9 4.3-11.0 10^3/uL Red Blood Count 4.48 4.30-5.52 10^6/uL Hemoglobin 13.6 13.3-17.7 g/dL Hematocrit 41 40-54 % Mean Corpuscular Volume 92 80-99 fL Mean Corpuscular Hemoglobin 30 25-34 pg Mean Corpuscular Hemoglobin Concent 33 32-36 g/dL Red Cell Distribution Width 12.4 10.0-14.5 % Platelet Count 330 130-400 10^3/uL Mean Platelet Volume 8.3 L 9.0-12.2 fL Immature Granulocyte % (Auto) 1 % Neutrophils (%) (Auto) 76 H 42-75 % Lymphocytes (%) (Auto) 12 12-44 % Monocytes (%) (Auto) 8 0-12 % Eosinophils (%) (Auto) 3 0-10 % Basophils (%) (Auto) 1 0-10 % Neutrophils # (Auto) 6.8 1.8-7.8 10^3/uL Lymphocytes # (Auto) 1.1 1.0-4.0 10^3/uL Monocytes # (Auto) 0.7 0.0-1.0 10^3/uL Eosinophils # (Auto) 0.2 0.0-0.3 10^3/uL Basophils # (Auto) 0.1 0.0-0.1 10^3/uL Immature Granulocyte # (Auto) 0.0 0.0-0.1 10^3/uL Sodium Level 135 135-145 MMOL/L Potassium Level 4.5 3.6-5.0 MMOL/L Chloride Level 100 98-107 MMOL/L Carbon Dioxide Level 26 21-32 MMOL/L Anion Gap 9 5-14 MMOL/L Blood Urea Nitrogen 19 H 7-18 MG/DL Creatinine 1.20 0.60-1.30 MG/DL Estimat Glomerular Filtration Rate 60 BUN/Creatinine Ratio 16 Glucose Level 192 H 70-105 MG/DL Calcium Level 9.2 8.5-10.1 MG/DL My Orders Orders - MIYA DAWSON MD Basic Metabolic Panel (08/25/20 10:41) Cbc With Automated Diff (08/25/20 10:41) Ekg Tracing (08/25/20 10:41) Vital Signs/I&O 08/25/20 09:58 Temp 35.2 Pulse 71 Resp 18 B/P (MAP) 136/86 (103) Pulse Ox 96 O2 Delivery Room Air Capillary Refill : Progress Note : Time: 11:27 Progress Note Patient seen and evaluated. 69-year-old male with a chief complaint of weakness and diaphoresis while on the toilet having a bowel movement. Evaluation today includes a physical exam, CBC and BMP. Patient's labs are reviewed and are within normal limits. Clinically the patient appears well. I suspect that he had a vasovagal episode while on the toilet having a bowel movement. Patient is completely asymptomatic at this time. He had no chest pain, no sudden increase in shortness of breath. No abdominal pain. He has no clinical or objective findings at this time to warrant further investigation of his complaints of weakness and diaphoresis. Patient will be discharged home to follow-up with his primary care physician and his oncologist. He verbalizes understanding. All questions are sought and answered. Patient is stable for discharge. ECG Initial ECG Impression Date: Aug 25, 2020 Initial ECG Impression Time: 11:00 Initial ECG Rate: 77 Initial ECG Rhythm: Normal Sinus Initial ECG Intervals: Normal Initial ECG Impression: Normal Initial ECG Comparisson: No Previous ECG Available Departure Impression Primary Impression: Vasovagal episode Disposition: 01 HOME, SELF-CARE Condition: Stable Departure-Patient Inst. Decision time for Depature: 11:28 Referrals: ESTHER VALDIVIA MD (PCP/Family) Primary Care Physician Patient Instructions: Vasovagal Response Add. Discharge Instructions: Drink plenty of fluids to stay well-hydrated. Continue your previously prescribed home medications. Please call and follow-up with your primary care physician. Return to the emergency room for any worsening symptoms, new concerns or further episodes. Copy Copies To 1: ESTHER VALDIVIA MD, KATHRYN M MD Aug 25, 2020 10:43
[2020-08-25 10:46] LABS: BASOPHILS # (AUTO) 0.1 10^3/uL (0.0-0.1); BASOPHILS % (AUTO) 1 % (0-10); EOSINOPHILS # (AUTO) 0.2 10^3/uL (0.0-0.3); EOSINOPHILS % (AUTO) 3 % (0-10); HEMATOCRIT 41 % (40-54); HEMOGLOBIN 13.6 g/dL (13.3-17.7); LYMPHOCYTES # (AUTO) 1.1 10^3/uL (1.0-4.0); LYMPHOCYTES % (AUTO) 12 % (12-44); MEAN CORPUSCULAR HEMOGLOBIN 30 pg (25-34); MEAN CORPUSCULAR HGB CONC 33 g/dL (32-36); MEAN CORPUSCULAR VOLUME 92 fL (80-99); MEAN PLATELET VOLUME 8.3 fL (9.0-12.2); MONOCYTES # (AUTO) 0.7 10^3/uL (0.0-1.0); MONOCYTES % (AUTO) 8 % (0-12); NEUTROPHILS # (AUTO) 6.8 10^3/uL (1.8-7.8); NEUTROPHILS % (AUTO) 76 % (42-75); PLATELET COUNT 330 10^3/uL (130-400); WHITE BLOOD COUNT 8.9 10^3/uL (4.3-11.0)
[2020-08-25 11:00] LABS: POTASSIUM 4.5 MMOL/L (3.6-5.0)
[2020-08-25 11:02] LABS: CALCIUM 9.2 MG/DL (8.5-10.1)
[2020-08-25 11:06] LABS: CREATININE SERUM 1.2 MG/DL (0.60-1.30)
[2020-08-25 11:39] VITALS: BP 107/60
== END 2020-08-25 11:39 | disposition home or self-care (01) ==
LOC: EDUNIT# 09:57 → ER 09:58
DX: R55 Syncope and collapse (principal); I10 Essential (primary) hypertension; E78.00 Pure hypercholesterolemia, unspecified; Z85.118 Personal history of other malignant neoplasm of bronchus and lung; Z87.891 Personal history of nicotine dependence
CPT/HCPCS: 36415; 80048; 85025; 93005

== ENCOUNTER 2020-09-04 20:42 | Inpatient (IN) | payer MEDICARE, OTHER ==
[~2020-09-04] VITALS: Ht 175.3 cm; Wt 181.0 kg
[2020-09-04] MEDS ORDERED: ASPIRIN 81 MG CHEW (CHILDREN'S ASA) ONE (21:05)
[2020-09-04] MEDS ORDERED: ASPIRIN 81 MG CHEW (CHILDREN'S ASA) PO ONE (21:30)
--- NOTE | 2020-09-04 21:37 | ED Respiratory ---
General Chief Complaint: Respiratory Problems Stated Complaint: SOB Nursing Triage Note: PT TO ROOM 06 VIA W/C WITH C/O SOB. PT HAVING DIFFICULTY VERBALIZING HIS C/O. PT WILL ANSWER DIRECT QUESTIONS BUT HAVING DIFFICULTY STATING WHAT HIS C/O IS. Source: patient (EXTREMELY POOR HISTORIAN--ALL HISTORY IS FROM OLD RECORDS), old records History of Present Illness Date Seen by Provider: Sep 04, 2020 Time Seen by Provider: 20:50 Initial Comments PT ARRIVES VIA POV FROM HOME C/O SHORTNESS OF BREATH UNABLE TO OBTAIN ANY OTHER INFORMATION AT ALL FROM PT PT SEEMS SOMEWHAT CONFUSED, AND PT WILL SIMPLY NOT ANSWER QUESTIONS, DESPITE BEING ASKED THE SAME QUESTION MULTIPLE TIMES, OR WILL SIMPLY QUIT TALKING MID-SENTENCE, AND THEN ANSWERS ARE OFTEN INAPPROPRIATE/ NOT RELEVANT TO THE QUESTION. [id number] CALLED, AND REPORTED TO STAFF MEMBER, THAT PT HAS 3 LARGE MALIGNANT TUMORS IN LUNGS. SHE REPORTS THAT HE WAS HAVING DIFFICULTY TALKING TODAY. NO OTHER INFORMATION IS OBTAINABLE AT THIS TIME. PT WAS SEEN HERE 08/25/20 AFTER AN APPARENT VASOVAGAL EPISODE WHILE ON TOILET. BASIC LAB AND EXAM WAS ESSENTIALLY NORMAL AT THAT TIME. PCP: DR. LANE Allergies and Home Medications Allergies Coded Allergies: No Known Drug Allergies (Unverified , 04/01/18) Home Medications C,E,Zinc,Copper 11/Ubqqn3e/Lut 1 Each Capsule, 1 EACH PO DAILY, (Reported) Carvedilol 3.125 Mg Tablet, 3.125 MG PO BID, (Reported) Lisinopril/Hydrochlorothiazide 1 Each Tablet, 1 EACH PO DAILY, (Reported) Lovastatin 40 Mg Tablet, 40 MG PO DAILY, (Reported) Omeprazole 20 Mg Capsule., 20 MG PO DAILY, (Reported) Patient Home Medication List Home Medication List Reviewed: Yes Review of Systems Review of Systems Constitutional: see HPI Respiratory: see HPI Past Jinkrnr-Rarqtq-Bcdrnq Hx Past Med/Social Hx: Reviewed and Corrections made Patient Social History Alcohol Use: Occasionally Uses Number of Drinks Today: BB Alcohol Beverage of Choice: Whiskey, Orange Smoking Status: Former Smoker Type Used: Cigarettes Former Smoker, Quit: Apr 01, 2000 2nd Hand Smoke Exposure: No Recent Infectious Disease Expo: No Recent Hopitalizations: No Immunizations Up To Date Tetanus Booster (TDap): Unknown Date of Influenza Vaccine: May 06, 2020 Seasonal Allergies Seasonal Allergies: No Past Medical History Surgeries: Yes (WISDOM TEETH REMOVAL, INGUINAL HERNIA) Abdominal Respiratory: No Cardiac: Yes High Cholesterol, Hypertension Neurological: No Reproductive Disorders: No Sexually Transmitted Disease: No HIV/AIDS: No Genitourinary: No Gastrointestinal: Yes Diverticulosis, Polyps Musculoskeletal: Yes (SHOULDERS) Arthritis Endocrine: No HEENT: No Loss of Vision: Bilateral Hearing Impairment: Denies Cancer: Yes (SMALL CELL LUNG CANCER) Lung Did You Recieve Any Treatments: Yes What Type of Treatment Did You: Chemotherapy, Radiation SMALL CELL LUNG CANCER DX 1993. TREATED WITH CHEMO AND RADIATION RECURRENT LUNG CANCER DX 08/2020--NO TREATMENT Psychosocial: No Integumentary: No Blood Disorders: No Adverse Reaction/Blood Tranf: No (N/A) Family Medical History No Pertinent Family Hx ADDITIONAL PAST SURGICAL HISTORY: -LEFT INGUINAL HERNIA REPAIR 02/19/14 -REMOVAL OF BASAL CELL SKIN CANCER RIGHT ROMAN CATHOLIC 04/04/18 -COLONOSCOPY 12/19/19- FINDINGS: There was no evidence for internal or external hemorrhoids and the rectum was unremarkable. Mild to moderate number of small to medium size sigmoid diverticulum were present without evidence for diverticulitis. No other sigmoid colonic abnormalities were appreciated. The descending colon, splenic flexure, transverse colon and hepatic flexure were unremarkable. Present in the proximal ascending colon was a 5 to 6 mm sessile polyp. It was biopsied and ablated and submitted for histopathology after photographic documentation. No significant blood loss was noted. ASSESSMENT: 1. A 5 to 6 mm sessile polyp was removed from the proximal ascending colon. As long as there is no surprise on histopathology report, would advocate repeat surveillance colonoscopy in 5 years as long as the patient's health remains good. 2. There is a 5 mm firm nodule involving the upper outer left quadrant of the prostate suspicious for underlying cancer. Discussed this finding with the patient. He believes that he has had a urology visit in the last 2 to 3 years, but does not know if it was specifically for a nodule. He is going to be getting some screening labs that he believes the PSA as part of, with an upcoming visit with Dr. Lane. Physical Exam Vital Signs - First Documented 09/04/20 20:54 Temp 36.2 Pulse 91 Resp 22 B/P (MAP) 159/99 (119) O2 Delivery Room Air Capillary Refill : Less Than 3 Seconds Height: 5'9.00" Weight: 200lbs. 0.0oz. 90.353683oa; 58.00 BMI Method:Stated General Appearance: WD/WN, no apparent distress, other (PT IS SOMEWHAT ANXIOUS, UNABLE TO COMPLETE SENTENCES) HEENT: PERRL/EOMI Respiratory: no accessory muscle use, other (MILDLY DYPSNEIC. DECREASED AERATION ON LEFT, WITH FAINT WHEEZING. COARSE LUNG SOUNDS ON RIGHT .) Cardiovascular: regular rate, rhythm, no murmur Gastrointestinal: soft Extremities: normal inspection, no pedal edema, normal capillary refill Neurologic/Psychiatric: no motor/sensory deficits, alert, other (KNOWS NAME, DIFFICULT TO ASSESS ORIENTATION. APPEARS SOMEWHAT CONFUSED. SOMEWHAT ANXIOUS, CONSTANT MOVEMENTS. DIFFICULTY FOLLOWING COMMANDS, UNABLE TO COMPLETE SENTENCES, BUT SPEECH IS CLEAR. ) Skin: normal color, warm/dry Focused Exam Lactate Level 09/04/20 21:00: Lactic Acid Level 1.30 Lactic Acid Level Laboratory Tests Test 09/04/20 21:00 Lactic Acid Level 1.30 MMOL/L (0.50-2.00) Progress/Results/Core Measures Suspected Sepsis Recent Fever Within 48 Hours: No Infection Criteria Present: None New/Unexplained Altered Menta: No Sepsis Screen: No Definite Risk SIRS Temperature: Pulse: 91 Respiratory Rate: 22 Laboratory Tests 09/04/20 21:00: White Blood Count 10.0 Blood Pressure 159 /99 Mean: 119 09/04/20 21:00: Lactic Acid Level 1.30 Laboratory Tests 09/04/20 21:00: Creatinine 1.25, INR Comment 1.0, Platelet Count 415H, Total Bilirubin 0.5 Results/Orders Lab Results Laboratory Tests Test 09/04/20 20:50 09/04/20 21:00 09/04/20 23:50 09/05/20 00:20 Range/Units Coronavirus (COVID-19)(PCR) Negative Negative White Blood Count 10.0 4.3-11.0 10^3/uL Red Blood Count 4.16 L 4.30-5.52 10^6/uL Hemoglobin 12.7 L 13.3-17.7 g/dL Hematocrit 37 L 40-54 % Mean Corpuscular Volume 89 80-99 fL Mean Corpuscular Hemoglobin 31 25-34 pg Mean Corpuscular Hemoglobin Concent 34 32-36 g/dL Red Cell Distribution Width 12.3 10.0-14.5 % Platelet Count 415 H 130-400 10^3/uL Mean Platelet Volume 8.3 L 9.0-12.2 fL Immature Granulocyte % (Auto) 1 % Neutrophils (%) (Auto) 74 42-75 % Lymphocytes (%) (Auto) 10 L 12-44 % Monocytes (%) (Auto) 13 H 0-12 % Eosinophils (%) (Auto) 2 0-10 % Basophils (%) (Auto) 0 0-10 % Neutrophils # (Auto) 7.4 1.8-7.8 10^3/uL Lymphocytes # (Auto) 1.0 1.0-4.0 10^3/uL Monocytes # (Auto) 1.3 H 0.0-1.0 10^3/uL Eosinophils # (Auto) 0.2 0.0-0.3 10^3/uL Basophils # (Auto) 0.0 0.0-0.1 10^3/uL Immature Granulocyte # (Auto) 0.1 0.0-0.1 10^3/uL Erythrocyte Sedimentation Rate 66 H 0-30 MM/HR Prothrombin Time 13.5 12.2-14.7 SEC INR Comment 1.0 0.8-1.4 Activated Partial Thromboplast Time 31 24-35 SEC D-Dimer 3.22 H 0.00-0.49 UG/ML Sodium Level 131 L 135-145 MMOL/L Potassium Level 4.2 3.6-5.0 MMOL/L Chloride Level 94 L 98-107 MMOL/L Carbon Dioxide Level 22 21-32 MMOL/L Anion Gap 15 H 5-14 MMOL/L Blood Urea Nitrogen 18 7-18 MG/DL Creatinine 1.25 0.60-1.30 MG/DL Estimat Glomerular Filtration Rate 57 BUN/Creatinine Ratio 14 Glucose Level 113 H 70-105 MG/DL Lactic Acid Level 1.30 0.50-2.00 MMOL/L Calcium Level 9.3 8.5-10.1 MG/DL Corrected Calcium 9.5 8.5-10.1 MG/DL Magnesium Level 1.8 1.6-2.4 MG/DL Total Bilirubin 0.5 0.1-1.0 MG/DL Aspartate Amino Transf (AST/SGOT) 19 5-34 U/L Alanine Aminotransferase (ALT/SGPT) 19 0-55 U/L Alkaline Phosphatase 69 40-136 U/L Lactate Dehydrogenase 297 H 125-220 U/L Myoglobin 60.3 10.0-92.0 NG/ML Troponin I < 0.028 <0.028 NG/ML C-Reactive Protein High Sensitivity 5.37 H 0.00-0.50 MG/DL B-Type Natriuretic Peptide 17.2 <100.0 PG/ML Total Protein 6.9 6.4-8.2 GM/DL Albumin 3.8 3.2-4.5 GM/DL Procalcitonin 0.06 <0.10 NG/ML TSH [place] Testing 2.77 0.35-4.94 UIU/ML Serum Alcohol < 10 <10 MG/DL Coronavirus 2019 (DEVYN) Negative Negative Blood Gas Puncture Site RIGHT RADIAL Blood Gas Patient Temperature 36.2 Arterial Blood pH 7.55 H 7.37-7.43 Arterial Blood Partial Pressure CO2 20 L 35-45 MMHG Arterial Blood Partial Pressure O2 148 H 79-93 MMHG Arterial Blood HCO3 18 L 23-27 MMOL/L Arterial Blood Total CO2 18.4 L 21.0-31.0 MMOL/L Arterial Blood Oxygen Saturation 96 94-100 % Arterial Blood Base Excess -4.5 L -2.5-2.5 MMOL/L Enio Test NEGATIVE Blood Gas Ventilator Setting NO Blood Gas Inspired Oxygen RA Body Fluid Source THORACEN Body Fluid Color RED Body Fluid Appearance MKD BLDY Body Fluid WBC 200 /uL Body Fluid RBC 419029 /uL Body Fluid Polynuclear WBCs 17 % Body Fluid Mononuclear WBCs 6 % Body Fluid Lymphocytes 67 % Body Fluid Other Cells 10 % Cytology Report Status SEE FOOTNOTE Test 09/05/20 00:45 Range/Units Urine Color YELLOW Urine Clarity CLEAR Urine pH 6.0 5-9 Urine Specific [place] 1.015 L 1.016-1.022 Urine Protein NEGATIVE NEGATIVE Urine Glucose (UA) NEGATIVE NEGATIVE Urine Ketones NEGATIVE NEGATIVE Urine Nitrite NEGATIVE NEGATIVE Urine Bilirubin NEGATIVE NEGATIVE Urine Urobilinogen 0.2 < = 1.0 MG/DL Urine Leukocyte Esterase NEGATIVE NEGATIVE Urine RBC (Auto) NEGATIVE NEGATIVE Urine RBC 0-2 /HPF Urine WBC 0-2 /HPF Urine Squamous Epithelial Cells RARE /HPF Urine Crystals NONE /LPF Urine Bacteria NEGATIVE /HPF Urine Casts PRESENT /LPF Urine Hyaline Casts 5-10 H /LPF Urine Granular Casts 0-2 H /LPF Urine Mucus MODERATE H /LPF Urine Culture Indicated NO Urine Opiates Screen POSITIVE H NEGATIVE Urine Oxycodone Screen POSITIVE H NEGATIVE Urine Methadone Screen NEGATIVE NEGATIVE Urine Propoxyphene Screen NEGATIVE NEGATIVE Urine Barbiturates Screen NEGATIVE NEGATIVE Ur Tricyclic Antidepressants Screen NEGATIVE NEGATIVE Urine Phencyclidine Screen NEGATIVE NEGATIVE Urine Amphetamines Screen NEGATIVE NEGATIVE Urine Methamphetamines Screen NEGATIVE NEGATIVE Urine Benzodiazepines Screen NEGATIVE NEGATIVE Urine Cocaine Screen NEGATIVE NEGATIVE Urine Cannabinoids Screen NEGATIVE NEGATIVE Micro Results Microbiology 09/04/20 Influenza Types A,B Antigen (FAWAD) - Final, Complete 09/04/20 Blood Culture - Preliminary, Resulted No growth 09/04/20 Blood Culture - Preliminary, Resulted No growth My Orders Orders - MADISON RIVERA DO Ed Iv/Invasive Line Start (09/04/20 20:50) Ekg Tracing (09/04/20 20:50) O2 (09/04/20 20:50) Monitor-Rhythm Ecg Trace Only (09/04/20 20:50) Cbc With Automated Diff (09/04/20 20:50) Comprehensive Metabolic Panel (09/04/20 20:50) Fibrin Degradation Products (09/04/20 20:50) Procalcitonin (Pct) (09/04/20 20:50) Hs C Reactive Protein (09/04/20 20:50) Erythrocyte Sedimentation Rate (09/04/20 20:50) LDH (09/04/20 20:50) Blood Culture (09/04/20 20:50) Influenza A And B Antigens (09/04/20 20:50) Chest 1 View, Ap/Pa Only (09/04/20 20:50) Coronavirus Sars-Cov-2 So 2018 (09/04/20 20:50) Covid 19 Inhouse Test (09/04/20 20:50) BNP (09/04/20 20:50) Lactic Acid Analyzer (09/04/20 20:50) Magnesium (09/04/20 20:50) Protime With Inr (09/04/20 20:50) Partial Thromboplastin Time (09/04/20 20:50) Myoglobin Serum (09/04/20 20:50) Troponin I (09/04/20 20:50) Aspirin Chewable Tablet (Baby Aspirin Ch (09/04/20 21:05) Aspirin Chewable Tablet (Baby Aspirin Ch (09/04/20 21:30) Alcohol (09/04/20 21:22) Arterial Blood Gas (09/04/20 21:22) Drug Screen Stat (Urine) (09/04/20 21:22) Thyroid Analyzer (09/04/20 21:22) Ua Culture If Indicated (09/04/20 21:22) Ct Head Wo-R/O Stroke (09/04/20 21:37) Ct Chest Wo (09/04/20 22:04) Ekg Tracing (09/04/20 22:21) Chest 1 View, Ap/Pa Only (09/05/20 00:14) Body Fluid Culture (09/05/20 00:15) Body Fluid Cell Count (09/05/20 00:15) Medications Given in ED Vital Signs/I&O 09/04/20 20:54 Temp 36.2 Pulse 91 Resp 22 B/P (MAP) 159/99 (119) O2 Delivery Room Air Capillary Refill : Less Than 3 Seconds Blood Pressure Mean: 119 Progress Note : Progress Note PLACED IN ISOLATION ROOM PPE WORN COVID-19 TESTING PERFORMED PLACED ON O2 THORACENTESIS PERFORMED BY DR. FRANCO, WITH IMPROVEMENT IN DYSPNEA. NO DETERIORATION IN PT'S CONDITION DURING ER STAY ECG Initial ECG Impression Date: Sep 04, 2020 Initial ECG Impression Time: 21:06 Initial ECG Rate: 100 Initial ECG Rhythm: S.Tach (TRIGEMINY, PVC'S, MUCH ARTIFACT, ) Initial ECG Impression: Nonspecific Changes EKG : EKG Time: 21:15 Rate: 101 Rhythm: Normal Sinus (PVC'S, ) ECG Impression: Nonspecific Changes Diagnostic Imaging Comments CXR--LEFT PLEURAL EFFUSION, PENDING RADIOLOGIST REVIEW POST THORACENTESIS CXR--SIGNIFICANT REDUCTION OF LEFT PLEURAL EFFUSION, NO PNEUMOTHORAX, LOW LUNG VOLUME ON LEFT. PENDING RADIOLOGIST REVIEW CT CHEST--LARGE MEDIAL LEFT UPPER LOBE MASS WITH ADJACENT SATELLITE NODULES. MARKED INCREASE IN LOCULATED LEFT PLEURAL FLUID. MEDIASTINAL MALIGNANT LYMPHADENOPATHY. NO PNEUMOTHROAX. POST-OBSTRUCTIVE PNEUMONITIS MEDIAL LEFT LOWER LOBE--PER [facility] VIA FAX AT [phone] CT HEAD--MULTIPLE IRREGULAR LOW-ATTENUATION FOCI BILATERAL PARIETAL LOBES, SUSPICIOUS FOR UNDERLYING MASSES/METASTASIS. NO MASS EFFECT OR INTRACRANIAL HEMORRHAGE. PER [facility] VIA FAX AT [phone] Departure Communication (Admissions) Family Conversation [phone]--SPOKE WITH PT'S [id number] ( 'S SISTER) WHO IS DPOA FOR HEALTHCARE, AND UPDATED HER ON PT'S CONDITION. PT'S , EDILSON, IS WITH HER AND I ALSO UPDATED HER ON PT'S CONDITION. VERBAL CONSENT FOR THORACENTESIS AND ADMIT OBTAIN BY BOTH. [id number] REPORTS THAT PT HAS BEEN SHORT OF BREATH "ALL WEEKEND" AND HAD AN APPOINTMENT WITH DR. MERRITT YESTERDAY. [phone]--DR. FRANCO HERE TO SEE PT AND PERFORM THORACENTESIS, VERBAL CONSENT BY [id number] AND HEARD BY HIM WELL. [phone]--SPOKE WITH DR. BERGER, [facility]. ACCEPTS PT FOR ADMIT. WILL CONSULT DR. MERRITT WELL Impression Primary Impression: Pleural effusion on left Additional Impressions: SUSPECTED BRAIN METASTASIS, WITH ALTERED MENTAL STATUS DYSPNEA WITH HYPOXIA HYPONATEMIA RECURRENT SMALL CELL LUNG CANCER Disposition: ADMITTED INPATIENT Condition: Improved Admissions Decision to Admit Reason: Admit from ER (General) Decision to Admit/Date: Sep 04, 2020 Time/Decision to Admit Time: 23:35 Departure-Patient Inst. Referrals: ESTHER LANE MD (PCP/Family) Primary Care Physician MADISON RIVERA DO Sep 04, 2020 21:37
[2020-09-04 21:39] LABS: BASOPHILS % (AUTO) 0 % (0-10); EOSINOPHILS # (AUTO) 0.2 10^3/uL (0.0-0.3); EOSINOPHILS % (AUTO) 2 % (0-10); HEMATOCRIT 37 % (40-54); HEMOGLOBIN 12.7 g/dL (13.3-17.7); LYMPHOCYTES % (AUTO) 10 % (12-44); MEAN CORPUSCULAR HEMOGLOBIN 31 pg (25-34); MEAN CORPUSCULAR HGB CONC 34 g/dL (32-36); MEAN CORPUSCULAR VOLUME 89 fL (80-99); MEAN PLATELET VOLUME 8.3 fL (9.0-12.2); MONOCYTES # (AUTO) 1.3 10^3/uL (0.0-1.0); MONOCYTES % (AUTO) 13 % (0-12); NEUTROPHILS # (AUTO) 7.4 10^3/uL (1.8-7.8); NEUTROPHILS % (AUTO) 74 % (42-75); PLATELET COUNT 415 10^3/uL (130-400)
[2020-09-04 21:51] LABS: FIBRIN DEGRADATION PRODUCTS 3.22 UG/ML (0.00-0.49); PROTHROMBIN TIME PATIENT 13.5 SEC (12.2-14.7)
[2020-09-04 21:53] LABS: ALBUMIN 3.8 GM/DL (3.2-4.5); CHLORIDE 94 MMOL/L (98-107); POTASSIUM 4.2 MMOL/L (3.6-5.0); SODIUM 131 MMOL/L (135-145)
[2020-09-04 21:54] LABS: CALCIUM 9.3 MG/DL (8.5-10.1)
[2020-09-04 21:56] LABS: GLUCOSE 113 MG/DL (70-105); TOTAL PROTEIN 6.9 GM/DL (6.4-8.2)
[2020-09-04 21:57] LABS: BILIRUBIN,TOTAL 0.5 MG/DL (0.1-1.0); CARBON DIOXIDE 22 MMOL/L (21-32)
[2020-09-04 21:59] LABS: ALKALINE PHOSPHATASE 69 U/L (40-136); CREATININE SERUM 1.25 MG/DL (0.60-1.30); GFR ESTIMATED 57
[2020-09-04 22:00] LABS: BUN/CREATININE RATIO 14
[2020-09-04 22:02] LABS: ALANINE AMINOTRANSFERASE 19 U/L (0-55); MAGNESIUM 1.8 MG/DL (1.6-2.4)
[2020-09-04 22:10] LABS: ERYTHROCYTE SEDIMENTATION RATE 66 MM/HR (0-30)
[2020-09-04 22:23] LABS: TSH (THYROID ANALYZER) 2.77 UIU/ML (0.35-4.94)
[2020-09-05 00:01] LABS: ABG BASE EXCESS -4.5 MMOL/L (-2.5-2.5); ABG OXYGEN SATURATION 96 % (94-100); ABG PCO2 20 MMHG (35-45); ABG PH 7.55 (7.37-7.43); ABG PO2 148 MMHG (79-93); ABG TCO2 18.4 MMOL/L (21.0-31.0); ALLENS TEST NEGATIVE; INSPIRED O2 RA; PATIENT TEMP 36.2; VENTILATOR NO
[2020-09-05 00:56] LABS: BILIRUBIN,URINE NEGATIVE (NEGATIVE); CLARITY,URINE CLEAR; COLOR,URINE YELLOW; GLUCOSE, URINE (UA) NEGATIVE (NEGATIVE); KETONES,URINE NEGATIVE (NEGATIVE); LEUKOCYTE ESTERASE ,URINE NEGATIVE (NEGATIVE); NITRITE,URINE NEGATIVE (NEGATIVE); PROTEIN,URINE NEGATIVE (NEGATIVE)
[2020-09-05 01:31] LABS: BACTERIA,URINE NEGATIVE /HPF; RBC,URINE 0-2 /HPF; SQUAMOUS EPITHELIAL CELL,UR RARE /HPF; WBC,URINE 0-2 /HPF
[2020-09-05 01:32] LABS: GRANULAR CASTS,URINE 0-2 /LPF
[2020-09-05 01:34] LABS: AMPHETAMINE SCREEN, URINE NEGATIVE (NEGATIVE); BARBITURATE SCREEN URINE NEGATIVE (NEGATIVE); BENZODIAZEPINES SCREEN URINE NEGATIVE (NEGATIVE); CANNABINOID SCREEN, URINE NEGATIVE (NEGATIVE); COCAINE SCREEN URINE NEGATIVE (NEGATIVE); METHADONE STAT NEGATIVE (NEGATIVE); METHAMPHETAMINE SCREEN URINE S NEGATIVE (NEGATIVE); OPIATE SCREEN URINE POSITIVE (NEGATIVE); TRICYCLIC ANTIDEPRESSANTS SCRE NEGATIVE (NEGATIVE)
[2020-09-05 01:35] LABS: OXYCODONE STAT POSITIVE (NEGATIVE); PROPOXYPHENE STAT NEGATIVE (NEGATIVE)
--- NOTE | 2020-09-05 01:55 | Consultation - Surgery ---
History of Present Illness History of Present Illness Patient Consulted On(carlos/time) 09/04/20 23:30 Date Seen by Provider: Sep 05, 2020 Time Seen by Provider: 23:30 History of Present Illness Consult by Dr. Morrissey for left pleural effusion. Patient is a a 69 year old male with lung cancer. Having increasing shortness of breath and not feeling well. Patient states activity made breathing worse and nothing making it better. Patient states it has worsened over the last day or two. Had a CT chest showing large left pleural effusion. Allergies and Home Medications Allergies Coded Allergies: No Known Drug Allergies (Unverified , 04/01/18) Home Medications C,E,Zinc,Copper 11/Saaod6f/Lut 1 Each Capsule, 1 EACH PO DAILY, (Reported) Carvedilol 3.125 Mg Tablet, 3.125 MG PO BID, (Reported) Lisinopril/Hydrochlorothiazide 1 Each Tablet, 1 EACH PO DAILY, (Reported) Lovastatin 40 Mg Tablet, 40 MG PO DAILY, (Reported) Omeprazole 20 Mg Capsule.dr, 20 MG PO DAILY, (Reported) Patient Home Medication List Home Medication List Reviewed: Yes Past Rlzjyem-Nifbru-Ckgvyf Hx Patient Social History Number of Drinks Today: BB Smoking Status: Former Smoker Former Smoker, Quit: Apr 01, 2000 2nd Hand Smoke Exposure: No Recent Hopitalizations: No Immunizations Up To Date Tetanus Booster (TDap): Unknown Date of Influenza Vaccine: May 06, 2020 Seasonal Allergies Seasonal Allergies: No Surgeries History of Surgeries: Yes (WISDOM TEETH REMOVAL, INGUINAL HERNIA) Respiratory History of Respiratory Disorde: No Cardiovascular History of Cardiac Disorders: Yes Cardiac Disorders: High Cholesterol, Hypertension Neurological History of Neurological Disord: No Reproductive System Hx Reproductive Disorders: No Sexually Transmitted Disease: No HIV/AIDS: No Genitourinary History of Genitourinary Disor: No Gastrointestinal History of Gastrointestinal Di: Yes Gastrointestinal Disorders: Polyps Musculoskeletal History of Musculoskeletal Dis: Yes (SHOULDERS) Musculoskeletal Disorders: Arthritis Endocrine History of Endocrine Disorders: No HEENT History of HEENT Disorders: No Loss of Vision: Bilateral Hearing Impairment: Denies Cancer History of Cancer: Yes (SMALL CELL LUNG) Psychosocial History of Psychiatric Problem: No Integumentary History of Skin or Integumenta: No Blood Transfusions History of Blood Disorders: No Adverse Reaction to a Blood Tr: No (N/A) Reviewed Nursing Assessment Reviewed/Agree w Nursing PMH: Yes Family Medical History Significant Family History: No Pertinent Family Hx Review of Systems-General Constitutional: No chills, No weakness EENTM: No blurred vision, No mouth pain Respiratory: No cough; dyspnea on exertion, short of breath Cardiovascular: No chest pain, No palpitations Gastrointestinal: No abdominal pain, No dysphagia, No nausea, No vomiting Genitourinary: No decreased output, No discharge Musculoskeletal: No back pain, No joint pain Skin: No change in color, No change in hair/nails Psychiatric/Neurological: Denies Anxiety, Denies Depressed, Denies Emotional Problems All Other Systems Reviewed Negative Unless Noted: Yes (Negative excepted noted.) Physical Exam-General Problems Physical Exam Vital Signs Vital Signs - First Documented 09/04/20 20:54 Temp 36.2 Pulse 91 Resp 22 B/P (MAP) 159/99 (119) O2 Delivery Room Air Capillary Refill : Less Than 3 Seconds General Appearance: WD/WN, no apparent distress (but slight labored breathing) HEENT: PERRL/EOMI, normal ENT inspection Neck: non-tender, supple Respiratory: chest non-tender, decreased breath sounds, other (slightly labored breathing) Cardiovascular: regular rate, rhythm, no edema Gastrointestinal: non tender, soft, no organomegaly Rectal: deferred Back: no CVA tenderness, no vertebral tenderness Extremities: non-tender, normal inspection Neurologic/Psychiatric: no motor/sensory deficits, alert, normal mood/affect Skin: normal color, warm/dry Lymphatic: no adenopathy Data Review Labs Laboratory Tests 09/04/20 21:00: White Blood Count 10.0, Red Blood Count 4.16L, Hemoglobin 12.7L, Hematocrit 37L, Mean Corpuscular Volume 89, Mean Corpuscular Hemoglobin 31, Mean Corpuscular Hemoglobin Concent 34, Red Cell Distribution Width 12.3, Platelet Count 415H, Mean Platelet Volume 8.3L, Immature Granulocyte % (Auto) 1, Neutrophils (%) (Auto) 74, Lymphocytes (%) (Auto) 10L, Monocytes (%) (Auto) 13H, Eosinophils (%) (Auto) 2, Basophils (%) (Auto) 0, Neutrophils # (Auto) 7.4, Lymphocytes # (Auto) 1.0, Monocytes # (Auto) 1.3H, Eosinophils # (Auto) 0.2, Basophils # (Auto) 0.0, Immature Granulocyte # (Auto) 0.1, Erythrocyte Sedimentation Rate 66H, Prothrombin Time 13.5, INR Comment 1.0, Activated Partial Thromboplast Time 31, D-Dimer 3.22H, Sodium Level 131L, Potassium Level 4.2, Chloride Level 94L, Carbon Dioxide Level 22, Anion Gap 15H, Blood Urea Nitrogen 18, Creatinine 1.25, Estimat Glomerular Filtration Rate 57, BUN/Creatinine Ratio 14, Glucose Level 113H, Lactic Acid Level 1.30, Calcium Level 9.3, Corrected Calcium 9.5, Magnesium Level 1.8, Total Bilirubin 0.5, Aspartate Amino Transf (AST/SGOT) 19, Alanine Aminotransferase (ALT/SGPT) 19, Alkaline Phosphatase 69, Lactate Dehydrogenase 297H, Myoglobin 60.3, Troponin I < 0.028, C-Reactive Protein High Sensitivity 5.37H, B-Type Natriuretic Peptide 17.2, Total Protein 6.9, Albumin 3.8, Procalcitonin 0.06, TSH [place] Testing 2.77, Serum Alcohol < 10, Coronavirus 2019 (DEVYN) Negative 09/04/20 23:50: Blood Gas Puncture Site RIGHT RADIAL, Blood Gas Patient Temperature 36.2, Arterial Blood pH 7.55H, Arterial Blood Partial Pressure CO2 20L, Arterial Blood Partial Pressure O2 148H, Arterial Blood HCO3 18L, Arterial Blood Total CO2 18.4L, Arterial Blood Oxygen Saturation 96, Arterial Blood Base Excess -4.5L, Enio Test NEGATIVE, Blood Gas Ventilator Setting NO, Blood Gas Inspired Oxygen RA 09/05/20 00:20: 09/05/20 00:45: Urine Color YELLOW, Urine Clarity CLEAR, Urine pH 6.0, Urine Specific [place] 1.015L, Urine Protein NEGATIVE, Urine Glucose (UA) NEGATIVE, Urine Ketones NEGATIVE, Urine Nitrite NEGATIVE, Urine Bilirubin NEGATIVE, Urine Urobilinogen 0.2, Urine Leukocyte Esterase NEGATIVE, Urine RBC (Auto) NEGATIVE, Urine RBC 0- 2, Urine WBC 0-2, Urine Squamous Epithelial Cells RARE, Urine Crystals NONE, Urine Bacteria NEGATIVE, Urine Casts PRESENT, Urine Hyaline Casts 5-10H, Urine Granular Casts 0-2H, Urine Mucus MODERATEH, Urine Culture Indicated NO, Urine Opiates Screen POSITIVEH, Urine Oxycodone Screen POSITIVEH, Urine Methadone Screen NEGATIVE, Urine Propoxyphene Screen NEGATIVE, Urine Barbiturates Screen NEGATIVE, Ur Tricyclic Antidepressants Screen NEGATIVE, Urine Phencyclidine Screen NEGATIVE, Urine Amphetamines Screen NEGATIVE, Urine Methamphetamines Screen NEGATIVE, Urine Benzodiazepines Screen NEGATIVE, Urine Cocaine Screen NEGATIVE, Urine Cannabinoids Screen NEGATIVE Microbiology 09/04/20 Influenza Types A,B Antigen (FAWAD) - Final, Complete Assessment/Plan Assessment/Plan Assessment/Plan left lung cancer with likely metastasis left pleural effusion shortness of breath patient imaging reviewed and effusion likely causing his shortness of breath patient wishes to have left thoracentesis performed and his POA provided consent. Left thoracentesis performed and 2052 ml of maroon colored fluid removed and sent for cytology Chest x ray pos procedure Patient breathing significantly improved after thoracentesis. DENA FRANCO DO Sep 05, 2020 01:55
--- NOTE | 2020-09-05 02:40 | NUR ---
PT TO [facility] ROOM 507
--- NOTE | 2020-09-05 03:00 | NUR ---
PT YULIA BOYD RECIEVED BY THIS RN FROM ED FOR C/O SOB AND NEW ONSET CONFUSION. PT ORIENTED TO ROOM, ADVISED TO CALL FOR HELP BEFORE GETTING UP, URINAL WITHIN REACH, CALL LIGHT WITHIN REACH. PT GIVEN BASIN TO SPIT IN IF NEEDED. PT CURRENTLY ON 2L O2 VIA NASAL CANNULA, PT RESTING IN BED WITH NO COMPLAINTS AT THIS TIME. THIS RN WILL CONTINUE TO MONITOR THORACENTESIS WAS DONE IN ED AND 2L FLUID WAS REMOVED FROM L LUNG. PT HAS CURRENT LUNG CANCER WITH METS.
[2020-09-05 03:15] LABS: BODY FLUID APPEARENCE MKD BLDY; BODY FLUID COLOR RED; BODY FLUID SOURCE THORACEN
[2020-09-05 03:16] LABS: BF OTHER CELLS 10 %; BODY FLUID RBC COUNT 442000 /uL; BODY FLUID WBC TOTAL COUNT 200 /uL; LYMPHOCYTES,BODY FLUID 67 %
--- NOTE | 2020-09-05 03:29 | OPERATIVE REPORT ---
DATE OF SERVICE: 09/05/2020 PREOPERATIVE DIAGNOSIS: Left pleural effusion. POSTOPERATIVE DIAGNOSIS: Left pleural effusion. PROCEDURE: Ultrasound-guided left thoracentesis. SURGEON: Dena Ortiz DO ANESTHESIA: 1% lidocaine 3 mL. COMPLICATIONS: None. INDICATIONS: The patient is a 69-year-old male with difficulty breathing and lung cancer with metastasis. The patient with increasing shortness of breath and needing left thoracentesis and consent was obtained and on the chart. DESCRIPTION OF PROCEDURE: The patient was sitting up at bedside. Ultrasound was used to isolate the largest pocket for insertion of the [id number]-[id number] needle. The area was then marked and prepped and draped in a sterile fashion. A timeout was performed. Local anesthetic was infiltrated and a maroon-colored fluid was withdrawn with the local. The 11 blade scalpel was used to make a small skin incision and the Nhrx-C-Zxgkstaf needle and catheter were then advanced until the maroon-colored fluid was withdrawn. The catheter was then advanced and the needle was removed. A total of 2052 mL of maroon-colored fluid was withdrawn. Once removed, the catheter was then removed and sterile bandage was applied. The patient tolerated procedure well, having improvement in his overall condition of breathing. He has chest x-ray pending. Fluid sent for cytology. Job ID: [id number] DocumentID: [id number] Dictated Date: 09/05/2020 01:44:37 [employer] Sharpshooter Date: 09/05/2020 03:27:24 Dictated By: DENA ORTIZ DO
--- NOTE | 2020-09-05 05:04 | Pulmonary Consultation ---
History of Present Illness History of Present Illness Date Seen by Provider: Sep 05, 2020 Time Seen by Provider: 05:01 Date of Admission Allergies and Home Medications Allergies Coded Allergies: No Known Drug Allergies (Unverified , 04/01/18) Home Medications C,E,Zinc,Copper 11/Dbnzv1x/Lut 1 Each Capsule, 1 EACH PO DAILY, (Reported) Carvedilol 3.125 Mg Tablet, 3.125 MG PO BID, (Reported) Lisinopril/Hydrochlorothiazide 1 Each Tablet, 1 EACH PO DAILY, (Reported) Lovastatin 40 Mg Tablet, 40 MG PO DAILY, (Reported) Omeprazole 20 Mg Capsule.dr, 20 MG PO DAILY, (Reported) Past Ipgqxdk-Uvtdnn-Ykihct Hx Patient Social History Alcohol Use: Occasionally Uses Number of Drinks Today: BB Alcohol Beverage of Choice: Whiskey, [place] Smoking Status: Former Smoker Former Smoker, Quit: Apr 01, 2000 2nd Hand Smoke Exposure: No Recent Infectious Disease Expo: No Recent Hopitalizations: No Have you traveled recently?: No Immunizations Up To Date Tetanus Booster (TDap): Unknown Date of Influenza Vaccine: May 06, 2020 Seasonal Allergies Seasonal Allergies: No Past Medical History Surgeries: Yes (WISDOM TEETH REMOVAL, INGUINAL HERNIA) Respiratory: No Cardiac: Yes High Cholesterol, Hypertension Neurological: No Reproductive Disorders: No Sexually Transmitted Disease: No HIV/AIDS: No Genitourinary: No Gastrointestinal: Yes Polyps Musculoskeletal: Yes (SHOULDERS) Arthritis Endocrine: No HEENT: No Loss of Vision: Bilateral Hearing Impairment: Denies Cancer: Yes (SMALL CELL LUNG) Did You Recieve Any Treatments: Yes What Type of Treatment Did You: Chemotherapy, Radiation Psychosocial: No Integumentary: No Blood Disorders: No Adverse Reaction/Blood Tranf: No (N/A) Family Medical History No Pertinent Family Hx COLONOSCOPY 12/19/19- FINDINGS: There was no evidence for internal or external hemorrhoids and the rectum was unremarkable. Mild to moderate number of small to medium size sigmoid diverticulum were present without evidence for diverticulitis. No other sigmoid colonic abnormalities were appreciated. The descending colon, splenic flexure, transverse colon and hepatic flexure were unremarkable. Present in the proximal ascending colon was a 5 to 6 mm sessile polyp. It was biopsied and ablated and submitted for histopathology after photographic documentation. No significant blood loss was noted. ASSESSMENT: 1. A 5 to 6 mm sessile polyp was removed from the proximal ascending colon. As long as there is no surprise on histopathology report, would advocate repeat surveillance colonoscopy in 5 years as long as the patient's health remains good. 2. There is a 5 mm firm nodule involving the upper outer left quadrant of the prostate suspicious for underlying cancer. Discussed this finding with the patient. He believes that he has had a urology visit in the last 2 to 3 years, but does not know if it was specifically for a nodule. He is going to be getting some screening labs that he believes the PSA as part of, with an upcoming visit with Dr. Lane. Review of Systems Time Seen by Provider: 05:01 Sepsis Event Evaluation Height, Weight, BMI Height: 5'9.00" Weight: 200lbs. 0.0oz. 90.294235ru; 58.89 BMI Method:Stated Exam Exam Vital Signs Date Time Temp Pulse Resp B/P (MAP) Pulse Ox O2 Delivery O2 Flow Rate FiO2 09/05/20 02:40 98 Nasal Cannula 2.00 09/05/20 02:06 83 18 119/68 98 Room Air 09/04/20 20:54 36.2 91 22 159/99 (119) Room Air Height & Weight Height: 5'9.00" Weight: 200lbs. 0.0oz. 90.662718nh; 58.89 BMI Method:Stated Capillary Refill: Less Than 3 Seconds Gastrointestinal: non tender, soft, no organomegaly Results Lab Laboratory Tests 09/04/20 21:00 Assessment/Plan Assessment/Plan Hx of metastatic Adenocarcinoma of lung -Follows with oncology Left pleural effusion s/p thoracentesis -Oxygen Hx of tobacco use Anemia Hyponatremia -Monitor DRE RAMAN DO Sep 05, 2020 05:04
[2020-09-05 05:26] LABS: BASOPHILS % (AUTO) 0 % (0-10); EOSINOPHILS # (AUTO) 0.1 10^3/uL (0.0-0.3); EOSINOPHILS % (AUTO) 1 % (0-10); HEMATOCRIT 34 % (40-54); HEMOGLOBIN 11.9 g/dL (13.3-17.7); LYMPHOCYTES # (AUTO) 0.9 10^3/uL (1.0-4.0); LYMPHOCYTES % (AUTO) 9 % (12-44); MEAN CORPUSCULAR HEMOGLOBIN 31 pg (25-34); MEAN CORPUSCULAR HGB CONC 35 g/dL (32-36); MEAN CORPUSCULAR VOLUME 88 fL (80-99); MEAN PLATELET VOLUME 8.3 fL (9.0-12.2); MONOCYTES # (AUTO) 1.3 10^3/uL (0.0-1.0); MONOCYTES % (AUTO) 12 % (0-12); NEUTROPHILS # (AUTO) 8.2 10^3/uL (1.8-7.8); NEUTROPHILS % (AUTO) 77 % (42-75); PLATELET COUNT 354 10^3/uL (130-400); WHITE BLOOD COUNT 10.6 10^3/uL (4.3-11.0)
[2020-09-05 05:43] LABS: ALBUMIN 3.5 GM/DL (3.2-4.5); CHLORIDE 96 MMOL/L (98-107); POTASSIUM 4.2 MMOL/L (3.6-5.0); SODIUM 131 MMOL/L (135-145)
[2020-09-05 05:45] LABS: GLUCOSE 101 MG/DL (70-105)
[2020-09-05 05:46] LABS: TOTAL PROTEIN 6.2 GM/DL (6.4-8.2)
[2020-09-05 05:47] LABS: BILIRUBIN,TOTAL 0.6 MG/DL (0.1-1.0); CARBON DIOXIDE 23 MMOL/L (21-32)
[2020-09-05 05:49] LABS: ALKALINE PHOSPHATASE 60 U/L (40-136); CREATININE SERUM 1.01 MG/DL (0.60-1.30); GFR ESTIMATED > 60
[2020-09-05 05:50] LABS: BUN/CREATININE RATIO 18
[2020-09-05 05:52] LABS: ALANINE AMINOTRANSFERASE 16 U/L (0-55)
--- NOTE | 2020-09-05 07:32 | Diagnostic Imaging Report ---
EXAMINATION: Chest radiograph, portable AP view. DATE: 09/04/2020 10:24 PM INDICATION: 69-year-old male, dyspnea. History of lung cancer. COMPARISON: August 13, 2020. FINDINGS: Stable overall appearance of the cardiomediastinal silhouette. There is interval increase in opacification of the left hemithorax with near complete current opacification of the left hemithorax. There is no identified pneumothorax. There are motion limitations of the study. There is no definite airspace consolidation in the right lung. IMPRESSION: 1. Interval increase in opacification of the left hemithorax since the comparison study. This likely relates to the previously noted left upper lobe paramediastinal mass with additional opacification likely relating to increased left-sided pleural effusion, atelectasis, and/or infiltrate. Dictated by: Dictated on workstation # [id number]
--- NOTE | 2020-09-05 07:40 | Diagnostic Imaging Report ---
PROCEDURE: CT head wo r/o stroke. TECHNIQUE: Multiple contiguous axial images were obtained through the brain without the use of intravenous contrast. Auto Exposure Controls were utilized during the CT exam to meet ALARA standards for radiation dose reduction. DATE: September 04, 2020. COMPARISON: None. INDICATION: 69-year-old male, altered mental status. History of lung cancer. FINDINGS: There is proportional prominence of the ventricles and additional CSF spaces consistent with moderate cerebral volume loss. There are areas of low-attenuation in the periventricular and subcortical white matter which are nonspecific. These are somewhat asymmetrically positioned. There is no clear associated mass effect.. There is no mass effect or midline shift. There is no acute intracranial hemorrhage. There is no abnormal extra-axial fluid collection. The visualized portions of the paranasal sinuses, mastoid air cells and middle ears are well aerated. IMPRESSION: 1. Areas of low-attenuation in the periventricular and subcortical white matter which are nonspecific and asymmetric. Particularly given provided history of lung cancer, MRI brain without and with intravenous contrast is recommended for evaluation of possible metastatic disease to brain. Other etiologies including findings of chronic small vessel ischemic disease would also be in the differential diagnosis. 2. Moderate cerebral volume loss. Dictated by: Dictated on workstation # [id number]
--- NOTE | 2020-09-05 07:42 | Diagnostic Imaging Report ---
EXAMINATION: CT Chest without contrast. TECHNIQUE: Multiple contiguous axial images were obtained through the chest without the use of intravenous contrast. All CT scans use one or more of the following dose optimizing techniques: automated exposure control, MA and/or KvP adjustment based on a patient size and exam type, or iterative reconstruction. HISTORY: Shortness of breath, lung mass COMPARISON: 08/11/2020 FINDINGS: Left upper lobe paramediastinal mass is again seen and unchanged from most recent prior, consistent with local recurrence of lung malignancy. It obstructs the left upper lobe apicoposterior bronchus and narrows the superior and inferior lingular bronchi. It measures approximately 10 x 3 cm and is unchanged from prior. There is partial collapse of the left lower lobe with a large left pleural effusion which is increased from prior study. The lungs are emphysematous. No pneumothorax. There are enlarged supraclavicular lymph nodes measuring up to 14 mm. Right upper paratracheal lymph nodes measure up to 11 mm. Subcarinal lymph node measures up to 29 mm. Heart size is normal. There are moderate coronary artery calcifications. No pericardial effusion. Aorta is normal in caliber. Limited views of the upper abdomen are unremarkable. There are no suspicious osseus lesions. IMPRESSION: 1. Increase in size of large left pleural effusion. 2. Stable left hilar and suprahilar mass with supraclavicular and mediastinal lymphadenopathy. Postobstructive consolidation of the left upper lobe, similar to prior. Dictated by: Dictated on workstation # [id number]
--- NOTE | 2020-09-05 07:54 | Diagnostic Imaging Report ---
EXAMINATION: Chest 1 view HISTORY: POST THORACENTESIS COMPARISON: 09/04/2020 FINDINGS: Left-sided pleural effusion is decreased in size and is now small. Right lung is clear. No pneumothorax. Heart size is unchanged. IMPRESSION: 1. Decrease in size of now small left pleural effusion with no pneumothorax. Dictated by: Dictated on workstation # [id number]
[2020-09-05] MEDS ORDERED: RT-ALBUTEROL INHALER HFA (VENTOLIN HFA) 18 GM IH ONE (08:03)
[2020-09-05] MEDS: fentaNYL INJECTION 100 MCG/2 ML AMP IVP PRN ×3 (08:08→19:39)
[2020-09-05] MEDS ORDERED: RT-ALBUTEROL INHALER HFA (VENTOLIN HFA) 18 GM IH PRN (08:30)
[2020-09-05 08:32] VITALS: BP 137/65
[2020-09-05 08:36] LABS: ABG BASE EXCESS 0.2 MMOL/L (-2.5-2.5); ABG OXYGEN SATURATION 97 % (94-100); ABG PCO2 35 MMHG (35-45); ABG PH 7.45 (7.37-7.43); ABG PO2 88 MMHG (79-93); ABG TCO2 24.7 MMOL/L (21.0-31.0); ALLENS TEST YES-POS; INSPIRED O2 2; PATIENT TEMP 37; VENTILATOR NO
--- NOTE | 2020-09-05 09:00 | NUR ---
PATIENT COMPLAINING OF INCREASED SOB, THIS RN SAT PATIENT UP IN BED, 02 SATS 96%, CALLED RT, CALLED DANISHA. DR RAMAN ORDERED STAT CXR, BREATHING TREATMENTS, ABG, THIS RN INFORMED RT OF NEW ORDERS. 919-PATIENT REPORTS SOB IS BETTER, DENIES ANY PAIN AT THIS TIME. 949- THIS RN INFORMED DR RAMAN OF CHANGE IN CXR.
--- NOTE | 2020-09-05 09:16 | Diagnostic Imaging Report ---
EXAMINATION: Chest 1 view HISTORY: Shortness of breath COMPARISON: 09/05/2020 FINDINGS: There has been increase in size of the moderate left pleural effusion with overlying atelectasis. No pneumothorax. Right lung is clear. Heart size is normal. IMPRESSION: 1. Increase in size of moderate left pleural effusion with overlying atelectasis. Dictated by: Dictated on workstation # [id number]
[2020-09-05] MEDS: RT-ALBUTEROL INHALER HFA (VENTOLIN HFA) 18 GM IH SCH ×4 (09:35→21:27)
--- NOTE | 2020-09-05 11:15 | History & Physical-Hospitalist ---
History of Present Illness HPI/Chief Complaint Pt is a 69CM with a PMh of recurrent small cell lung cancer who presented to the ER due to SOB. He states that he had small cell lung cancer roughly 20 years ago and did well but it has recurred recently. He was seen by Dr Schmidt to get staging scans done and pet was done on 08/17 which revealed lung mass and effusions. Imaging last night revealed significant worsening of the effusion from then though he states his symptoms really only started yesterday. He was unable to answer many questions yesterday and does better today though still was limited in his responses at times and HPI is somewhat limited by this. He knows that he has had a recurrence but he was unable to tell me about the imaging. RN reports this morning he has a recurrence of SOB but patient denies this as well or any events. He did have an ABG and CXR though to evaluate this that he does not seem to recall. Source: patient Date Seen 09/05/20 Time Seen by a Provider: 11:10 Attending Physician Eleni Anglin MD PCP Vianney Lane MD Referring Physician Date of Admission Sep 05, 2020 at 01:19 Home Medications & Allergies Home Medications Reviewed patient Home Medication Reconciliation performed by pharmacy medication reconciliations treatment technician and/or nursing. Patients Allergies have been reviewed. Allergies Allergies Coded Allergies No Known Drug Allergies (Unverified04/01/18) Past Gloczad-Mwdcgz-Hbebod Hx Past Med/Social Hx: Reviewed Nursing Past Med/Soc Hx Patient Social History Alcohol Use: Occasionally Uses Alcohol Beverage of Choice: Whiskey, [place] Recreational Drug Use: No Smoking Status: Former Smoker Former Smoker, Quit: Apr 01, 2000 2nd Hand Smoke Exposure: No Recent Foreign Travel: No Contact w/other who traveled: No Recent Hopitalizations: No Recent Infectious Disease Expo: No Immunizations Up To Date Tetanus Booster (TDap): Unknown Date of Influenza Vaccine: May 06, 2020 Seasonal Allergies Seasonal Allergies: No Past Medical History Cardiac: High Cholesterol, Hypertension Reproductive: No Sexually Transmitted Disease: No HIV/AIDS: No Gastrointestinal: Polyps Musculoskeletal: Arthritis Loss of Vision: Bilateral Hearing Impairment: Denies Did You Recieve Any Treatments: Yes What Type of Treatment Did You: Chemotherapy, Radiation History of Blood Disorders: No Adverse Reaction to Blood Clark: No (N/A) Family History Reviewed Nursing Family Hx No Pertinent Family Hx COLONOSCOPY 12/19/19- ASSESSMENT: 1. A 5 to 6 mm sessile polyp was removed from the proximal ascending colon. As long as there is no surprise on histopathology report, would advocate repeat surveillance colonoscopy in 5 years as long as the patient's health remains good. 2. There is a 5 mm firm nodule involving the upper outer left quadrant of the prostate suspicious for underlying cancer. Discussed this finding with the patient. He believes that he has had a urology visit in the last 2 to 3 years, but does not know if it was specifically for a nodule. He is going to be getting some screening labs that he believes the PSA as part of, with an upcoming visit with Dr. Lane. Review of Systems ROS-Unable to Obtain: limited by mentation Constitutional: see HPI Respiratory: short of breath Cardiovascular: No chest pain Physical Exam Physical Exam Vital Signs Vital Signs - First Documented 09/04/20 09/05/20 09/05/20 20:54 02:06 02:40 Temp 36.2 Pulse 91 Resp 22 B/P (MAP) 159/99 (119) Pulse Ox 98 O2 Delivery Room Air O2 Flow Rate 2.00 Capillary Refill : Less Than 3 Seconds Height, Weight, BMI Height: 5'9.00" Weight: 200lbs. 0.0oz. 90.829477jb; 58.89 BMI Method:Stated General Appearance: No Apparent Distress, WD/WN, Chronically ill HEENT: PERRL/EOMI, Moist Mucous Membranes Neck: Normal Inspection, Supple Respiratory: No Accessory Muscle Use, No Respiratory Distress; No Crackles; Decreased Breath Sounds (on left) Cardiovascular: Regular Rate, Rhythm, No JVD, No Murmur Gastrointestinal: Normal Bowel Sounds, Non Tender, Soft Extremity: Normal Capillary Refill, No Calf Tenderness, No Pedal Edema Neurologic/Psychiatric: Alert, Other (oriented to major details of self and stay only) Results Results/Procedures Labs Laboratory Tests 09/04/20 21:00 09/05/20 05:05 Patient resulted labs reviewed. Imaging: Reviewed Imaging Films, Reviewed Imaging Report Imaging [facility] [place], [place] NAME: YULIA BOYD [facility] REC#: [id number] PT STATUS: ADM [birth year] : 1950 PHYSICIAN: MADISON RIVERA DO ADMIT DATE: 09/05/20/[facility] Signed Date of Exam:09/04/20 CHEST 1 VIEW, AP/PA ONLY EXAMINATION: Chest radiograph, portable AP view. DATE: 09/04/2020 10:24 PM INDICATION: 69-year-old male, dyspnea. History of lung cancer. COMPARISON: August 13, 2020. FINDINGS: Stable overall appearance of the cardiomediastinal silhouette. There is interval increase in opacification of the left hemithorax with near complete current opacification of the left hemithorax. There is no identified pneumothorax. There are motion limitations of the study. There is no definite airspace consolidation in the right lung. IMPRESSION: 1. Interval increase in opacification of the left hemithorax since the comparison study. This likely relates to the previously noted left upper lobe paramediastinal mass with additional opacification likely relating to increased left-sided pleural effusion, atelectasis, and/or infiltrate. Dictated by: Dictated on workstation # [id number] Dict: 09/05/20 0723 Trans: 09/05/20 0841 [facility] [id number] Interpreted by: JERAMY BIRD MD Electronically signed by: JERAMY BIRD MD 09/05/20 0841 [facility] [place], [place] NAME: YULIA BOYD [facility] REC#: [id number] PT STATUS: ADM IN : 1950 PHYSICIAN: MADISNO RIVERA DO ADMIT DATE: 09/05/20/[facility] Signed Date of Exam:09/04/20 CT HEAD WO-R/O STROKE PROCEDURE: CT head wo r/o stroke. TECHNIQUE: Multiple contiguous axial images were obtained through the brain without the use of intravenous contrast. Auto Exposure Controls were utilized during the CT exam to meet ALARA standards for radiation dose reduction. DATE: September 04, 2020. COMPARISON: None. INDICATION: 69-year-old male, altered mental status. History of lung cancer. FINDINGS: There is proportional prominence of the ventricles and additional CSF spaces consistent with moderate cerebral volume loss. There are areas of low-attenuation in the periventricular and subcortical white matter which are nonspecific. These are somewhat asymmetrically positioned. There is no clear associated mass effect.. There is no mass effect or midline shift. There is no acute intracranial hemorrhage. There is no abnormal extra-axial fluid collection. The visualized portions of the paranasal sinuses, mastoid air cells and middle ears are well aerated. IMPRESSION: 1. Areas of low-attenuation in the periventricular and subcortical white matter which are nonspecific and asymmetric. Particularly given provided history of lung cancer, MRI brain without and with intravenous contrast is recommended for evaluation of possible metastatic disease to brain. Other etiologies including findings of chronic small vessel ischemic disease would also be in the differential diagnosis. 2. Moderate cerebral volume loss. Dictated by: Dictated on workstation # [id number] Dict: 09/05/20 0728 Trans: 09/05/2051 [facility] [id number] Interpreted by: JERAMY BIRD MD Electronically signed by: JERAMY BIRD MD 09/05/2051 [facility]. [place], [place] NAME: YULIA BOYD [facility] REC#: [id number] PT STATUS: ADM IN : 1950 PHYSICIAN: MADISON RIVERA DO ADMIT DATE: 09/05/20/[facility] Draft Date of Exam:09/04/20 CT CHEST WO EXAMINATION: CT Chest without contrast. TECHNIQUE: Multiple contiguous axial images were obtained through the chest without the use of intravenous contrast. All CT scans use one or more of the following dose optimizing techniques: automated exposure control, MA and/or KvP adjustment based on a patient size and exam type, or iterative reconstruction. HISTORY: Shortness of breath, lung mass COMPARISON: 08/11/2020 FINDINGS: Left upper lobe paramediastinal mass is again seen and unchanged from most recent prior, consistent with local recurrence of lung malignancy. It obstructs the left upper lobe apicoposterior bronchus and narrows the superior and inferior lingular bronchi. It measures approximately 10 x 3 cm and is unchanged from prior. There is partial collapse of the left lower lobe with a large left pleural effusion which is increased from prior study. The lungs are emphysematous. No pneumothorax. There are enlarged supraclavicular lymph nodes measuring up to 14 mm. Right upper paratracheal lymph nodes measure up to 11 mm. Subcarinal lymph node measures up to 29 mm. Heart size is normal. There are moderate coronary artery calcifications. No pericardial effusion. Aorta is normal in caliber. Limited views of the upper abdomen are unremarkable. There are no suspicious osseus lesions. IMPRESSION: 1. Increase in size of large left pleural effusion. 2. Stable left hilar and suprahilar mass with supraclavicular and mediastinal lymphadenopathy. Postobstructive consolidation of the left upper lobe, similar to prior. Dictated on workstation # [id number] Dict: 09/05/20 0729 Trans: 09/05/20 0742 [facility] [id number] Interpreted by: ORESTES CAMARILLO MD Electronically signed by: [facility]. [place], [place] NAME: YULIA BOYD [facility] REC#: [id number] PT STATUS: ADM IN : 1950 PHYSICIAN: MADISON RIVERA DO ADMIT DATE: 09/05/20/[facility] Draft Date of Exam:09/05/20 CHEST 1 VIEW, AP/PA ONLY EXAMINATION: Chest 1 view HISTORY: POST THORACENTESIS COMPARISON: 09/04/2020 FINDINGS: Left-sided pleural effusion is decreased in size and is now small. Right lung is clear. No pneumothorax. Heart size is unchanged. IMPRESSION: 1. Decrease in size of now small left pleural effusion with no pneumothorax. Dictated on workstation # [id number] Dict: 09/05/20 0745 Trans: 09/05/20 0754 [facility] [id number] Interpreted by: ORESTES CAMARILLO MD Electronically signed by: Assessment/Plan Admission Diagnosis Large pleural effusion Admission Status: Inpatient Order (span 2 midnights) Reason for Inpatient Admission: see below Assessment and Plan Large pleural effusion Known personal history of lung cancer S/p thopracentesis with ~2L drained Fluid sent for cytology, likely malignant Underwent biopsy on 08/13 which revealed poor differentiated adenocarcinoma with negative lung markers Did have a nodular prostate on colonscopy in December, no PSA available and I am unable to order it inpatient per [employer] rules when I attempted Consult Dr Schmidt for the AM Surgery consulted, given reacculumation on CXR this AM may need pleur-x catheter Pulmonology consulted as well, appreciate recs HTN Resume home meds when med rec done BP well controlled Hyponatremia 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
[2020-09-05] MEDS ORDERED: PANTOPRAZOLE 40 MG (PROTONIX) TAB PO ONE (11:30)
[2020-09-05] MEDS ORDERED: ACETAMINOPHEN 325 MG TABLET PO PRN (11:30)
[2020-09-05] MEDS ORDERED: ONDANSETRON 4 MG/2 ML (SDV) Z0FRAN IV PRN (11:30)
[2020-09-05] MEDS ORDERED: ACETAMINOPHEN 500 MG TAB (TYLENOL) PO PRN (11:30)
[2020-09-05] MEDS ORDERED: MILK OF MAGNESIA 400 MG/5 ML 30 ML UDC PO PRN (11:30)
[2020-09-05] MEDS ORDERED: ANTACID SUSP 30 ML UDC (MYLANTA) PO PRN (11:30)
[2020-09-05 12:46] VITALS: BP 135/90
--- NOTE | 2020-09-05 13:33 | Progress Note - Surgery ---
Subjective Date Seen by a Provider: Sep 05, 2020 Time Seen by a Provider: 13:28 Subjective/Events-last exam Patient with increasing shortness of breath today. No other complaints at this time. Activity makes worse. Had chest x ray showing return of left pleural effusion. Denies n/v fever sweats chills or chest pain. Focused Exam Lactate Level 09/04/20 21:00: Lactic Acid Level 1.30 Objective Exam Vital Signs Date Time Temp Pulse Resp B/P (MAP) Pulse Ox O2 Delivery O2 Flow Rate FiO2 09/05/20 13:24 96 Nasal Cannula 2.00 09/05/20 13:00 101 09/05/20 12:46 36.1 82 22 135/90 (105) 96 09/05/20 09:35 96 Nasal Cannula 2.00 09/05/20 08:52 96 Nasal Cannula 2.00 09/05/20 08:32 36.0 78 26 137/65 (89) 96 09/05/20 08:00 98 Nasal Cannula 2.00 09/05/20 07:00 84 09/05/20 02:58 94 09/05/20 02:40 98 Nasal Cannula 2.00 09/05/20 02:06 83 18 119/68 98 Room Air 09/04/20 20:54 36.2 91 22 159/99 (119) Room Air I & O 09/05/20 06:59 Intake Total 100 ml Output Total 300 ml Balance -200 ml Capillary Refill : Less Than 3 Seconds General Appearance: No Apparent Distress, WD/WN, Chronically ill HEENT: PERRL/EOMI, Moist Mucous Membranes Neck: Normal Inspection, Supple Respiratory: No Accessory Muscle Use, No Respiratory Distress; No Crackles; Decreased Breath Sounds (on left) Cardiovascular: Regular Rate, Rhythm, No JVD, No Murmur Gastrointestinal: non tender, soft, no organomegaly Extremity: Normal Capillary Refill, No Calf Tenderness, No Pedal Edema Neurologic/Psychiatric: Alert, Other (alert but orientation is variable) Skin: Normal Color, Warm/Dry Lymphatic: No Adenopathy Results Lab Laboratory Tests 09/04/20 20:50: 09/04/20 21:00: White Blood Count 10.0, Red Blood Count 4.16L, Hemoglobin 12.7L, Hematocrit 37L, Mean Corpuscular Volume 89, Mean Corpuscular Hemoglobin 31, Mean Corpuscular Hemoglobin Concent 34, Red Cell Distribution Width 12.3, Platelet Count 415H, Mean Platelet Volume 8.3L, Immature Granulocyte % (Auto) 1, Neutrophils (%) (Auto) 74, Lymphocytes (%) (Auto) 10L, Monocytes (%) (Auto) 13H, Eosinophils (%) (Auto) 2, Basophils (%) (Auto) 0, Neutrophils # (Auto) 7.4, Lymphocytes # (Auto) 1.0, Monocytes # (Auto) 1.3H, Eosinophils # (Auto) 0.2, Basophils # (Auto) 0.0, Immature Granulocyte # (Auto) 0.1, Erythrocyte Sedimentation Rate 66H, Prothrombin Time 13.5, INR Comment 1.0, Activated Partial Thromboplast Time 31, D-Dimer 3.22H, Sodium Level 131L, Potassium Level 4.2, Chloride Level 94L, Carbon Dioxide Level 22, Anion Gap 15H, Blood Urea Nitrogen 18, Creatinine 1.25, Estimat Glomerular Filtration Rate 57, BUN/Creatinine Ratio 14, Glucose Level 113H, Lactic Acid Level 1.30, Calcium Level 9.3, Corrected Calcium 9.5, Magnesium Level 1.8, Total Bilirubin 0.5, Aspartate Amino Transf (AST/SGOT) 19, Alanine Aminotransferase (ALT/SGPT) 19, Alkaline Phosphatase 69, Lactate Dehydrogenase 297H, Myoglobin 60.3, Troponin I < 0.028, C-Reactive Protein High Sensitivity 5.37H, B-Type Natriuretic Peptide 17.2, Total Protein 6.9, Albumin 3.8, Procalcitonin 0.06, TSH [place] Testing 2.77, Serum Alcohol < 10, Coronavirus 2019 ([facility]) Negative 09/04/20 23:50: Blood Gas Puncture Site RIGHT RADIAL, Blood Gas Patient Temperature 36.2, Arterial Blood pH 7.55H, Arterial Blood Partial Pressure CO2 20L, Arterial Blood Partial Pressure O2 148H, Arterial Blood HCO3 18L, Arterial Blood Total CO2 18.4L, Arterial Blood Oxygen Saturation 96, Arterial Blood Base Excess -4.5L, Enio Test NEGATIVE, Blood Gas Ventilator Setting NO, Blood Gas Inspired Oxygen RA 09/05/20 00:20: Body Fluid Source THORACEN, Body Fluid Color RED, Body Fluid Appearance MKD BLDY, Body Fluid WBC 200, Body Fluid RBC [id number], Body Fluid Polynuclear WBCs 17, Body Fluid Mononuclear WBCs 6, Body Fluid Lymphocytes 67, Body Fluid Other Cells 10, Cytology Report Status SEE FOOTNOTE 09/05/20 00:45: Urine Color YELLOW, Urine Clarity CLEAR, Urine pH 6.0, Urine Specific [place] 1.015L, Urine Protein NEGATIVE, Urine Glucose (UA) NEGATIVE, Urine Ketones NEGATIVE, Urine Nitrite NEGATIVE, Urine Bilirubin NEGATIVE, Urine Urobilinogen 0.2, Urine Leukocyte Esterase NEGATIVE, Urine RBC (Auto) NEGATIVE, Urine RBC 0- 2, Urine WBC 0-2, Urine Squamous Epithelial Cells RARE, Urine Crystals NONE, Urine Bacteria NEGATIVE, Urine Casts PRESENT, Urine Hyaline Casts 5-10H, Urine Granular Casts 0-2H, Urine Mucus MODERATEH, Urine Culture Indicated NO, Urine Opiates Screen POSITIVEH, Urine Oxycodone Screen POSITIVEH, Urine Methadone Screen NEGATIVE, Urine Propoxyphene Screen NEGATIVE, Urine Barbiturates Screen NEGATIVE, Ur Tricyclic Antidepressants Screen NEGATIVE, Urine Phencyclidine Screen NEGATIVE, Urine Amphetamines Screen NEGATIVE, Urine Methamphetamines Screen NEGATIVE, Urine Benzodiazepines Screen NEGATIVE, Urine Cocaine Screen NEGATIVE, Urine Cannabinoids Screen NEGATIVE 09/05/20 05:05: White Blood Count 10.6, Red Blood Count 3.90L, Hemoglobin 11.9L, Hematocrit 34L, Mean Corpuscular Volume 88, Mean Corpuscular Hemoglobin 31, Mean Corpuscular Hemoglobin Concent 35, Red Cell Distribution Width 12.0, Platelet Count 354, Mean Platelet Volume 8.3L, Immature Granulocyte % (Auto) 1, Neutrophils (%) (Auto) 77H, Lymphocytes (%) (Auto) 9L, Monocytes (%) (Auto) 12, Eosinophils (%) (Auto) 1, Basophils (%) (Auto) 0, Neutrophils # (Auto) 8.2H, Lymphocytes # (Auto) 0.9L, Monocytes # (Auto) 1.3H, Eosinophils # (Auto) 0.1, Basophils # (Auto) 0.0, Immature Granulocyte # (Auto) 0.1, Sodium Level 131L, Potassium Level 4.2, Chloride Level 96L, Carbon Dioxide Level 23, Anion Gap 12, Blood Urea Nitrogen 18, Creatinine 1.01, Estimat Glomerular Filtration Rate > 60, BUN/Creatinine Ratio 18, Glucose Level 101, Calcium Level 9.0, Corrected Calcium 9.4, Total Bilirubin 0.6, Aspartate Amino Transf (AST/SGOT) 18, Alanine Aminotransferase (ALT/SGPT) 16, Alkaline Phosphatase 60, Total Protein 6.2L, Albumin 3.5 09/05/20 08:22: Blood Gas Puncture Site RIGHT RADIAL, Blood Gas Patient Temperature 37, Arterial Blood pH 7.45H, Arterial Blood Partial Pressure CO2 35, Arterial Blood Partial Pressure O2 88, Arterial Blood HCO3 24, Arterial Blood Total CO2 24.7, Arterial Blood Oxygen Saturation 97, Arterial Blood Base Excess 0.2, Enio Test YES-POS, Blood Gas Ventilator Setting NO, Blood Gas Inspired Oxygen 2 Microbiology 09/04/20 Influenza Types A,B Antigen (FAWAD) - Final, Complete Assessment/Plan Assessment/Plan Assessment/Plan left lung cancer with likely metastasis left pleural effusion- recurrent shortness of breath left pleural effusion returned and is symptomatic already. Discussed with Dr. Anglin, will get consent for Left pleurx drain placement which will make it to better control his shortness of breath symptoms due to pleural effusion NPO after midnight likely place it tomorrow. DENA FRANCO DO Sep 05, 2020 13:33
--- NOTE | 2020-09-05 14:20 | NUR ---
NOTIFIED DR BERGER OF PATIENT INCREASE IN ANXIETY, NEW ORDERS RECEIVED. SEE EMAR
[2020-09-05] MEDS: hydrOXYzine (ATARAX) 10 MG TAB PO PRN (14:21)
[2020-09-05 16:00] VITALS: BP 109/59
--- NOTE | 2020-09-05 17:00 | NUR ---
THIS RN SPOKE WITH PATIENT DAUGHTER AND MAN (DPOA) MULTIPLE TIMES THROUGH THE DAY. EXPRESSED TO THEM THE POLICY FOR CONTACTING THE NURSES FOR UPDATES. THEY VERBALIZED UNDERSTANDING BUT EXPRESSED THAT THEY WERE JUST WORRIED. THIS RN GAVE THEM THREE UPDATES THROUGH THIS SHIFT. THEY ASKED THAT THE PATIENT CALL HIS , THIS RN EXPLAINED THAT THEY PATIENT HAD FALLEN ASLEEP AND WHEN HE WAKES, THIS RN WILL INSTRUCT HIM TO CALL. 1730-PATIENT AWAKE, THIS RN OFFERED TO HELP HIM TO CALL HIS BECAUSE SHE WAS WORRIED.PATIENT STATED "I WILL CALL HER LATER."
--- NOTE | 2020-09-05 18:30 | NUR ---
THIS RN CHECKED ON PATIENT AND FOUND HIM STANDING AT BEDSIDE, MONITORS DISCONNECTED, URINE SOAKED CLOTHES AND URINE ON THE FLOOR. URINAL WAS AT THE BEDSIDE WELL THE CALL LIGHT WITHIN REACH. WHEN ASKED WHY HE DIDN'T USE THE URINAL OR THE CALL LIGHT, PATIENT RESPONDED "OH, I DON'T KNOW." THIS RN INSTRUCTED PATIENT TO SIT DOWN, THIS RN CLEANED PATIENT, ASSISTED HIM WITH CHANGING CLOTHES, CHANGED BEDDING AND CLEANED/DRIED FLOOR. MONITORS PLACED BACK ON THE PATIENT, BED ALARM SET, NEW YELLOW SOCKS PLACED ON THE PATIENT. THIS RN RE-INSTRUCTED PATIENT NOT TO GET OUT OF BED, RE-INSTRUCTED PATIENT TO USE URINAL AND THE CALL LIGHT. PATIENT VERBALIZED UNDERSTANDING.
--- NOTE | 2020-09-05 22:58 | NUR ---
COVID test return with negative results. Will change patient to standard precautions.
[2020-09-06] MEDS: RT-ALBUTEROL INHALER HFA (VENTOLIN HFA) 18 GM IH SCH ×6 (01:40→22:48)
[2020-09-06] MEDS: BENZONATATE 100 MG (TESSALON) CAPSULE PO PRN (05:26)
[2020-09-06 05:41] LABS: BASOPHILS % (AUTO) 0 % (0-10); EOSINOPHILS # (AUTO) 0.1 10^3/uL (0.0-0.3); EOSINOPHILS % (AUTO) 1 % (0-10); HEMATOCRIT 34 % (40-54); HEMOGLOBIN 11.3 g/dL (13.3-17.7); LYMPHOCYTES # (AUTO) 0.8 10^3/uL (1.0-4.0); LYMPHOCYTES % (AUTO) 9 % (12-44); MEAN CORPUSCULAR HEMOGLOBIN 30 pg (25-34); MEAN CORPUSCULAR HGB CONC 33 g/dL (32-36); MEAN CORPUSCULAR VOLUME 89 fL (80-99); MEAN PLATELET VOLUME 8.1 fL (9.0-12.2); MONOCYTES # (AUTO) 1.4 10^3/uL (0.0-1.0); MONOCYTES % (AUTO) 15 % (0-12); NEUTROPHILS # (AUTO) 6.8 10^3/uL (1.8-7.8); NEUTROPHILS % (AUTO) 74 % (42-75); PLATELET COUNT 345 10^3/uL (130-400); WHITE BLOOD COUNT 9.1 10^3/uL (4.3-11.0)
[2020-09-06 05:55] LABS: CHLORIDE 100 MMOL/L (98-107); POTASSIUM 4.4 MMOL/L (3.6-5.0); SODIUM 134 MMOL/L (135-145)
[2020-09-06 05:56] LABS: CALCIUM 8.9 MG/DL (8.5-10.1)
[2020-09-06 05:57] LABS: GLUCOSE 96 MG/DL (70-105)
[2020-09-06 05:58] LABS: CARBON DIOXIDE 24 MMOL/L (21-32)
[2020-09-06 06:00] LABS: CREATININE SERUM 0.88 MG/DL (0.60-1.30); GFR ESTIMATED > 60; PHOSPHORUS 4.4 MG/DL (2.3-4.7)
[2020-09-06 06:01] LABS: BUN/CREATININE RATIO 15
--- NOTE | 2020-09-06 06:29 | Pulmonary Progress Note ---
Subjective Time Seen by a Provider: 06:28 Subjective/Events-last exam No complications noted. Sepsis Event Evaluation Height, Weight, BMI Height: 5'9.00" Weight: 200lbs. 0.0oz. 90.801621lb; 58.89 BMI Method:Stated Focused Exam Lactate Level 09/04/20 21:00: Lactic Acid Level 1.30 Exam Exam Vital Signs Date Time Temp Pulse Resp B/P (MAP) Pulse Ox O2 Delivery O2 Flow Rate FiO2 09/06/20 03:43 36.2 09/06/20 01:40 98 Nasal Cannula 1.00 09/06/20 01:00 91 09/05/20 21:27 98 Nasal Cannula 1.00 09/05/20 20:22 98 Nasal Cannula 2.00 09/05/20 20:00 36.3 09/05/20 19:00 116 09/05/20 18:25 96 Nasal Cannula 2.00 09/05/20 16:00 36.5 89 20 109/59 (76) 100 09/05/20 13:24 96 Nasal Cannula 2.00 09/05/20 13:00 101 09/05/20 12:46 36.1 82 22 135/90 (105) 96 09/05/20 09:35 96 Nasal Cannula 2.00 09/05/20 08:52 96 Nasal Cannula 2.00 09/05/20 08:32 36.0 78 26 137/65 (89) 96 09/05/20 08:00 98 Nasal Cannula 2.00 09/05/20 07:00 84 I & O 09/06/20 07:00 Intake Total 250 ml Output Total 1800 ml Balance -1550 ml Height & Weight Height: 5'9.00" Weight: 200lbs. 0.0oz. 90.976002yi; 58.89 BMI Method:Stated General Appearance: No Apparent Distress, WD/WN, Chronically ill HEENT: PERRL/EOMI, Moist Mucous Membranes Neck: Normal Inspection, Supple Respiratory: No Accessory Muscle Use, No Respiratory Distress; No Crackles; Decreased Breath Sounds (on left) Cardiovascular: Regular Rate, Rhythm, No JVD, No Murmur Capillary Refill: Less Than 3 Seconds Gastrointestinal: non tender, soft, no organomegaly Extremity: Normal Capillary Refill, No Calf Tenderness, No Pedal Edema Neurologic/Psychiatric: Alert, Other (oriented to major details of self and stay only) Skin: Normal Color, Warm/Dry Lymphatic: No Adenopathy Results Lab Laboratory Tests 09/04/20 21:00 09/05/20 05:05 09/06/20 05:22 Assessment/Plan Assessment/Plan Hx of metastatic Adenocarcinoma of lung -Follows with oncology Left pleural effusion s/p thoracentesis -Oxygen Hx of tobacco use Anemia Hyponatremia -Monitor DRE RAMAN DO Sep 06, 2020 06:29
--- NOTE | 2020-09-06 07:44 | Progress Note - Surgery ---
AIDEE HIRSCH MED STUDENT 09/06/20 0744: Subjective Date Seen by a Provider: Sep 06, 2020 Time Seen by a Provider: 07:15 Subjective/Events-last exam Pt alert and oriented to time and place. Pt was taken of oxygen this morning, tolerating well with high 90's O2 sat. Pt has no additional concerns at this time. Review of Systems General: No Chills, No Night Sweats Pulmonary: Dyspnea; No Pleuritic Chest Pain Cardiovascular: No: Chest Pain, Palpitations, Lt Headedness Gastrointestinal: No: Nausea, Vomiting, Abdominal Pain Focused Exam Lactate Level 09/04/20 21:00: Lactic Acid Level 1.30 Objective Exam Vital Signs Date Time Temp Pulse Resp B/P (MAP) Pulse Ox O2 Delivery O2 Flow Rate FiO2 09/06/20 03:43 36.2 09/06/20 01:40 98 Nasal Cannula 1.00 09/06/20 01:00 91 09/05/20 21:27 98 Nasal Cannula 1.00 09/05/20 20:22 98 Nasal Cannula 2.00 09/05/20 20:00 36.3 09/05/20 19:00 116 09/05/20 18:25 96 Nasal Cannula 2.00 09/05/20 16:00 36.5 89 20 109/59 (76) 100 09/05/20 13:24 96 Nasal Cannula 2.00 09/05/20 13:00 101 09/05/20 12:46 36.1 82 22 135/90 (105) 96 09/05/20 09:35 96 Nasal Cannula 2.00 09/05/20 08:52 96 Nasal Cannula 2.00 09/05/20 08:32 36.0 78 26 137/65 (89) 96 09/05/20 08:00 98 Nasal Cannula 2.00 I & O 09/06/20 06:59 Intake Total 250 ml Output Total 1800 ml Balance -1550 ml Capillary Refill : Less Than 3 Seconds General Appearance: No Apparent Distress, Chronically ill HEENT: PERRL/EOMI, Moist Mucous Membranes Neck: Normal Inspection, Supple Respiratory: No Accessory Muscle Use, No Respiratory Distress, Crackles (over L side ), Decreased Breath Sounds (on left) Cardiovascular: Regular Rate, Rhythm, No JVD, No Murmur, Normal Peripheral Pulses Peripheral Pulses: 2+ Radial Pulses (R), 2+ Radial Pulses (L) Gastrointestinal: non tender, soft, no organomegaly Extremity: Normal Capillary Refill, Normal Inspection, Non Tender, No Calf Tenderness, Other (neg Ana sign b/l ) Neurologic/Psychiatric: Alert, Normal Mood/Affect, spice miller II-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 Norm as Tested Skin: Normal Color, Warm/Dry Lymphatic: No Adenopathy Results Lab Laboratory Tests 09/05/20 08:22: Blood Gas Puncture Site RIGHT RADIAL, Blood Gas Patient Temperature 37, Arterial Blood pH 7.45H, Arterial Blood Partial Pressure CO2 35, Arterial Blood Partial Pressure O2 88, Arterial Blood HCO3 24, Arterial Blood Total CO2 24.7, Arterial Blood Oxygen Saturation 97, Arterial Blood Base Excess 0.2, Enio Test YES-POS, Blood Gas Ventilator Setting NO, Blood Gas Inspired Oxygen 2 09/06/20 05:22: White Blood Count 9.1, Red Blood Count 3.82L, Hemoglobin 11.3L, Hematocrit 34L, Mean Corpuscular Volume 89, Mean Corpuscular Hemoglobin 30, Mean Corpuscular Hemoglobin Concent 33, Red Cell Distribution Width 12.2, Platelet Count 345, Mean Platelet Volume 8.1L, Immature Granulocyte % (Auto) 0, Neutrophils (%) (Auto) 74, Lymphocytes (%) (Auto) 9L, Monocytes (%) (Auto) 15H, Eosinophils (%) (Auto) 1, Basophils (%) (Auto) 0, Neutrophils # (Auto) 6.8, Lymphocytes # (Auto) 0.8L, Monocytes # (Auto) 1.4H, Eosinophils # (Auto) 0.1, Basophils # (Auto) 0.0, Immature Granulocyte # (Auto) 0.0, Sodium Level 134L, Potassium Level 4.4, Chloride Level 100, Carbon Dioxide Level 24, Anion Gap 10, Blood Urea Nitrogen 13, Creatinine 0.88, Estimat Glomerular Filtration Rate > 60, BUN/Creatinine Ratio 15, Glucose Level 96, Calcium Level 8.9, Phosphorus Level 4.4, Magnesium Level 2.0 Microbiology 09/04/20 Influenza Types A,B Antigen (FAWAD) - Final, Complete 09/04/20 Blood Culture - Preliminary, Resulted No growth Assessment/Plan Assessment/Plan Assessment/Plan Left sided pleural effusion s/p thoracentesis poorly diff adenocarcinoma of lungs normocytic anemia - likely 2/2 anemia of chronic dz 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 pain management bloodthinners held for sx, continue SCD DENA ORTIZ DO 09/06/20 1156: Subjective Subjective/Events-last exam Patient breathing he states breathing is okay, just a little worse than day before. Not as bad when he first came in. Cough, nonproductive. Patient no new complaints. Patient chest x ray showing left pleural effusion recurring. Denies n/v fever sweats chills or chest pain. NPO currently. Objective Exam General Appearance: No Apparent Distress, Chronically ill HEENT: PERRL/EOMI, Moist Mucous Membranes Neck: Normal Inspection, Supple Respiratory: Chest Non Tender, No Accessory Muscle Use, No Respiratory Distress, Crackles (over L side ), Decreased Breath Sounds (on left) Cardiovascular: Regular Rate, Rhythm, No JVD, No Murmur Gastrointestinal: non tender, soft, no organomegaly Extremity: Normal Capillary Refill, Normal Inspection, Non Tender, No Calf Tenderness Neurologic/Psychiatric: Alert, Normal Mood/Affect, spice miller II-XII Norm as Tested Skin: Normal Color, Warm/Dry Lymphatic: No Adenopathy Assessment/Plan Assessment/Plan Assessment/Plan Left sided pleural effusion s/p thoracentesis poorly diff adenocarcinoma of lungs normocytic anemia - likely 2/2 anemia of chronic dz hyponatremia DVT prophylaxis Possible Pleur-X placement for pleural effusion refractory thoracentesis. pain management bloodthinners held for sx, continue SCD will get u/s to see if large enough target for pleurx left side chest u/s not demonstrating large enough pocket yet, will continue to monitor and when large enough will place . chest x ray tomorrow. Supervisory-Addendum Brief Verification & Attestation Participated in pt care: history, MDM, physical Personally performed: exam, history, MDM, supervision of care Care discussed with: Medical Student Procedures: n/a Results interpretation: Verified all documentation Verification and Attestation of Medical Student E/M Service A medical student performed and documented this service in my presence. I reviewed and verified all information documented by the medical student and made modifications to such information, when appropriate. I personally performed the physical exam and medical decision making. Dena Ortiz, Sep 06, 2020,11:56 AIDEE HIRSCH MED STUDENT Sep 06, 2020 07:44 DENA ORTIZ DO Sep 06, 2020 11:56
--- NOTE | 2020-09-06 07:49 | Diagnostic Imaging Report ---
Indication: Pleural effusion. Time of exam: 2:31 AM Correlation is made with prior chest one day earlier. Heart size is stable. Left sided infiltrate and pleural fluid shows no real change. Right lung is clear. There is no pneumothorax. Impression: Stable chest since exam one day earlier. Dictated by: Dictated on workstation # [id number]
[2020-09-06] MEDS: PANTOPRAZOLE 40 MG (PROTONIX) TAB PO SCH (08:30)
--- NOTE | 2020-09-06 08:33 | Progress Note ---
Subjective Subjective Date Seen by Provider: Sep 06, 2020 Time Seen by Provider: 08:30 PT IS A 69 YO MALE WHO IS KNOWN TO ME FROM CLINIC. HE HAS HX OF SMALL CELL LUNG CA ABOUT 18 YEARS AGO AND HAD RADIATION AND CHEMO WITH WHOLE BRAIN RADIATION. HE STARTED TO HAVE A MILD COUGH IN JUNE AND HAD SLIGHT IMPROVEMENT WITH ANTIBIOTICS, THEN DEVELOPED WORSENING SYMPTOMS AND IMAGING REVEALED A MASS IN THE LEFT LUNG, BIOPSY SHOWED ADENOCARCINOMA, FURTHER PATHOLOGY PENDING. HE BECAME ACUTELY SHORT OF BREATH THIS WEEKEND AND WAS FOUND TO HAVE PLEURAL EFFUSION Review of Systems ROS Unable to Obtain: limited by mentation General: No Chills, No Night Sweats Pulmonary: Dyspnea, Cough; No Pleuritic Chest Pain Cardiovascular: No: Chest Pain, Palpitations, Lt Headedness Gastrointestinal: No: Nausea, Vomiting, Abdominal Pain Genitourinary: No Dysuria, No Frequency Musculoskeletal: No: back pain Neurological: Weakness, Confusion (INTERMITTENT) All Other Systems Reviewed All Other Systems Reviewed: Yes (Negative excepted noted.) Objective Exam Vital Signs Vital Signs - First Documented 09/04/20 09/05/20 09/05/20 20:54 02:06 02:40 Temp 36.2 Pulse 91 Resp 22 B/P (MAP) 159/99 (119) Pulse Ox 98 O2 Delivery Room Air O2 Flow Rate 2.00 Capillary Refill : Less Than 3 Seconds General Appearance: No Apparent Distress, Chronically ill HEENT: PERRL/EOMI, Moist Mucous Membranes Neck: Normal Inspection, Supple Respiratory: No Accessory Muscle Use, No Respiratory Distress, Crackles (over L side ), Decreased Breath Sounds (on left) Cardiovascular: Regular Rate, Rhythm, No JVD, No Murmur, Normal Peripheral Pulses Gastrointestinal: Normal Bowel Sounds, Non Tender, Soft Extremity: Normal Capillary Refill, Normal Inspection, Non Tender, No Calf Tenderness, Other (neg Ana sign b/l ) Neurologic/Psychiatric: Alert, Normal Mood/Affect, 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-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 as Tested Skin: Normal Color, Warm/Dry Lymphatic: No Adenopathy Results Lab Laboratory Tests 09/06/20 05:22: White Blood Count 9.1, Red Blood Count 3.82L, Hemoglobin 11.3L, Hematocrit 34L, Mean Corpuscular Volume 89, Mean Corpuscular Hemoglobin 30, Mean Corpuscular Hemoglobin Concent 33, Red Cell Distribution Width 12.2, Platelet Count 345, Mean Platelet Volume 8.1L, Immature Granulocyte % (Auto) 0, Neutrophils (%) (Auto) 74, Lymphocytes (%) (Auto) 9L, Monocytes (%) (Auto) 15H, Eosinophils (%) (Auto) 1, Basophils (%) (Auto) 0, Neutrophils # (Auto) 6.8, Lymphocytes # (Auto) 0.8L, Monocytes # (Auto) 1.4H, Eosinophils # (Auto) 0.1, Basophils # (Auto) 0.0, Immature Granulocyte # (Auto) 0.0, Sodium Level 134L, Potassium Level 4.4, Chloride Level 100, Carbon Dioxide Level 24, Anion Gap 10, Blood Urea Nitrogen 13, Creatinine 0.88, Estimat Glomerular Filtration Rate > 60, BUN/Creatinine Ratio 15, Glucose Level 96, Calcium Level 8.9, Phosphorus Level 4.4, Magnesium Level 2.0 Microbiology 09/04/20 Influenza Types A,B Antigen (FAWAD) - Final, Complete 09/04/20 Blood Culture - Preliminary, Resulted No growth Assessment/Plan Assessment/Plan Admission Dx LEFT PLEURAL EFFUSION ADENOCARCINOMA LEFT LUNG PATHOLOGY PENDING HYPERTENSION HYPONATREMIA LEFT PLEURAL EFFUSION WITH KNOWN ADENOCARCINOMA LEFT LUNG PATHOLOGY PENDING - STATUS POST THORACENTESIS WITH 2+ LITERS DRAINED - WAITING ON PATHOLOGY FROM FLUID - WAITING ON SPECIAL STAINS FROM PREVIOUS PATHOLOGY - CONSULT TO PATHOLOGY HYPERTENSION - RESUMED HOME MEDICATIONS. HYPONATREMIA - LIKELY DUE TO MALIGNANCY Admission Status: Inpatient Order (span 2 midnights) ESTHER VALDIVIA MD Sep 06, 2020 08:33
--- NOTE | 2020-09-06 10:57 | Diagnostic Imaging Report ---
INDICATION: Left pleural effusion. Interrogation of the left chest was performed. A moderate sized pleural effusion is noted, calculated to be approximately 300 mL. IMPRESSION: Moderate left pleural effusion. Dictated by: Dictated on workstation # [id number]
--- NOTE | 2020-09-06 11:30 | NUR ---
REC'D PER BED FROM ICU. SEE ASSESSMENT.
[2020-09-06 12:00] VITALS: BP 114/72
--- NOTE | 2020-09-06 13:30 | NUR ---
DR. MERRITT NOTIFIED OF CONSULT.
[2020-09-06] MEDS ORDERED: OXYC10TA7 PO (14:09)
[2020-09-06] MEDS ORDERED: FOLI1TAB33 PO (14:09)
--- NOTE | 2020-09-06 14:19 | NUR ---
UNABLE TO SPEAK WITH THE PT- I CALLED HIS SISTER IN LAW (MAN) AND WENT THRU THE EXT MED HISTORY TO COMPLETE THE MED REC MAN WAS ABLE TO LIST ALL THE PTS MEDS WELL WHEN/HOW HE TAKES EACH OTC MEDS: OCUVITE
[2020-09-06 16:00] VITALS: BP 117/73
[2020-09-06 20:00] VITALS: BP 120/61
[2020-09-06] MEDS: MELATONIN 3 MG TABLET PO PRN (20:34)
--- NOTE | 2020-09-06 22:00 | CONSULTATION REPORT ---
DATE OF SERVICE: 09/06/2020 The patient is admitted to room 408. IMPRESSION: 1. A 69-year-old male with recent diagnosis of non-small cell lung cancer, adenocarcinoma subtype from the left upper lobe paramediastinal area with metastasis to lymph nodes, liver and possibly bone. 2. Admitted to the hospital with increasing shortness of breath and confusion. 3. Status post diagnostic and therapeutic thoracentesis with 2 liters of pleural fluid removed. 4. 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 5. Abnormal CT scan of the head with areas of low attenuation in the periventricular and subcortical white matter region. Differential include metastatic disease versus chronic small vessel ischemic disease. RECOMMENDATIONS: 1. Consider MRI of the brain to rule out metastatic disease versus other. 2. Continue management of his symptoms as you are doing. 3. Currently, we are waiting for next gen sequencing of the tumor tissue to identify any molecular targets prior to starting definitive treatment. 4. If the studies showed no molecular targets, he would be a candidate for combined chemotherapy with a PD-L1 inhibitor. His overall prognosis is guarded. BRIEF HISTORY: The patient is a 69-year-old male, who has a remote history of limited stage small cell lung cancer of the left paratracheal region, who was treated with combined chemoradiation with a complete response. He completed prophylactic cranial irradiation following this and was on surveillance. Recently complained of increasing cough and shortness of breath and had scans, which showed left paramediastinal/left upper lobe lung mass with evidence of lymph node, liver and probable bone lesions. Biopsy of the lung lesion done in early August was consistent with a poorly differentiated adenocarcinoma with study is pending. He was scheduled for a port placement later this week to tentatively start chemotherapy early next week. He was admitted to the hospital with increasing shortness of breath and confusion. Evaluation at the emergency room showed a worsening pleural fluid and he underwent a diagnostic and therapeutic thoracentesis with 2 liters of fluid removed. He was admitted to the hospital for further management and medical oncology consultation was requested for concurrent care. PAST MEDICAL HISTORY: Significant for small cell lung cancer diagnosed approximately 19 years ago and treated as mentioned above. He was also diagnosed with hypertension and hypercholesterolemia approximately at the same time and has been on treatment. History of gastroesophageal reflux disease and has been on proton pump inhibitors for more than 10 years. PAST SURGICAL HISTORY: Other surgeries include a right inguinal hernia repair approximately seven years ago. SOCIAL HISTORY: The patient is and lives in [place], [place]. His has significant dementia and patient has been the primary caregiver to her. They have no children. His cygjnm-xi-dbu lives close by and helps take care of both of them. 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 He has [id number] history of tobacco use and was smoking one and a half packs of cigarettes a day for more than 30 years, but he quit smoking 20 years ago with initial diagnosis of lung cancer. He uses 1 or 2 shots of alcohol daily and denied any recreational drug use. FAMILY HISTORY: Significant for his father, who was diagnosed with throat cancer at 87 years of age. No other significant family history. PHYSICAL EXAMINATION: GENERAL: Today showed an elderly male, awake and answering simple questions appropriately, although having difficulty remembering details. This is a change compared to 1 or 2 weeks ago when he was initially evaluated at the cancer center. HEENT: Normocephalic with alopecia, extraocular muscles intact, conjunctivae pink, oral mucosa moist. NECK: Supple, with no JVD. No cervical, supraclavicular or axillary lymphadenopathy palpable. CHEST: Symmetrical. LUNGS: With diminished breath sounds bilaterally with a rare scattered wheeze. CARDIOVASCULAR: Regular in rate and rhythm. No murmurs or gallops heard. ABDOMEN: Soft, nontender with no hepatosplenomegaly or other masses palpable. EXTREMITIES: Showed no edema. NEUROLOGIC: Showed no focal motor deficits. LABORATORY DATA: CBC done today showed WBC 9.1, hemoglobin 11.3, platelet count 345,000 with a neutrophil count 6.8, lymphocyte count 0.8 and monocyte count 1.4. CMP done yesterday showed sodium level of 131 with rest of the electrolytes relatively normal. BUN was 18 and creatinine 1.25 with GFR 57 mL per minute. Nonfasting glucose was 113. Liver function studies were within normal limits. Serum LDH was 297. Troponin was less than 0.028. C-reactive protein was slightly elevated at 5.37. TSH was within normal limits. BNP was within normal limits at 17.2. Chest x-ray done at the emergency room showed interval increase in opacification of left hemithorax when compared to 08/13/2020. CT scan of the chest and abdomen showed increase in size of large left pleural effusion. Stable left hilar and suprahilar mass with supraclavicular and mediastinal lymphadenopathy. Postobstructive consolidation of the left upper lobe, which is unchanged from before. Thoracentesis fluid was markedly bloody. Influenza and COVID-19 screening including PCR studies were negative. Thank you for allowing me to participate in this patient's care. I will follow the patient with you and make appropriate recommendations. 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
[2020-09-07] VITALS: BP 108/54
[2020-09-07] MEDS: RT-ALBUTEROL INHALER HFA (VENTOLIN HFA) 18 GM IH SCH ×5 (03:06→19:21)
[2020-09-07 04:07] VITALS: BP 139/78
--- NOTE | 2020-09-07 07:31 | Progress Note - Surgery ---
AIDEE HIRSCH MED STUDENT 09/07/20 0731: Subjective Time Seen by a Provider: 07:00 Subjective/Events-last exam Pt AMS appears unchanged- pt did not recall events from last encounter, oskari estefany that he was on oxygen. Pt states SOB and cough is slightly improved today. Pt went back on regular diet yesterday, tolerated well he says - no abd pain or N/Ving. Pt has no new complaints today. Review of Systems General: No Chills, No Night Sweats Pulmonary: Dyspnea, Cough; No Pleuritic Chest Pain Cardiovascular: No: Chest Pain, Palpitations, Edema Gastrointestinal: No: Nausea, Vomiting, Abdominal Pain Focused Exam Lactate Level 09/04/20 21:00: Lactic Acid Level 1.30 Objective Exam Vital Signs Date Time Temp Pulse Resp B/P (MAP) Pulse Ox O2 Delivery O2 Flow Rate FiO2 09/07/20 06:33 94 Nasal Cannula 1.00 09/07/20 04:07 36.1 96 22 139/78 (98) 95 Nasal Cannula 1.00 09/07/20 03:06 95 Nasal Cannula 1.00 09/07/20 00:00 36.0 99 18 108/54 (72) 95 Nasal Cannula 1.00 09/06/20 22:48 Nasal Cannula 1.00 09/06/20 20:00 95 Nasal Cannula 1.00 09/06/20 20:00 36.2 100 18 120/61 (80) 96 Nasal Cannula 1.00 09/06/20 19:34 93 Nasal Cannula 1.00 09/06/20 16:00 36.1 102 18 117/73 (88) 96 Nasal Cannula 1.00 09/06/20 15:17 91 Room Air 09/06/20 12:00 34.8 107 16 114/72 (86) 95 Nasal Cannula 1.00 09/06/20 11:30 95 Nasal Cannula 1.00 09/06/20 09:54 96 09/06/20 08:00 98 Nasal Cannula 2.00 I & O 09/07/20 07:00 Intake Total 1050 ml Output Total 525 ml Balance 525 ml Capillary Refill : Less Than 3 SecondsLess Than 3 Seconds General Appearance: No Apparent Distress, Chronically ill HEENT: PERRL/EOMI, Moist Mucous Membranes Neck: Normal Inspection, Supple Respiratory: Chest Non Tender, No Accessory Muscle Use, No Respiratory Distress, Crackles (over L side ), Decreased Breath Sounds (on left) Cardiovascular: Regular Rate, Rhythm, No JVD, No Murmur Peripheral Pulses: 2+ Radial Pulses (R), 2+ Radial Pulses (L) Gastrointestinal: non tender, soft, no organomegaly Extremity: Normal Capillary Refill, Normal Inspection, Non Tender, No Calf Tenderness Neurologic/Psychiatric: Alert, Normal Mood/Affect, 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 pain management bloodthinners held for sx, continue SCD 09/06 u/s did not demonstrate a large enough pocket yet, will continue to monitor and when large enough will place Pleur-X. chest x ray today. Consider repeat u/s to assess effusion volume. Consider repeat CMP/CBC. DENA ORTIZ DO 09/07/201919: Subjective Date Seen by a Provider: Sep 07, 2020 Subjective/Events-last exam Patient no change from yesterday. Patient states his breathing is may be slightly better today. He is not having any chest pain no abdominal pain no nausea or vomiting. Still with cough may be slightly better. Chest x-ray slightly worsening appearance. Objective Exam General Appearance: No Apparent Distress, Chronically ill HEENT: PERRL/EOMI, Moist Mucous Membranes Neck: Normal Inspection Respiratory: Chest Non Tender, No Accessory Muscle Use, Crackles (over L side ), Decreased Breath Sounds (on left) Cardiovascular: Regular Rate, Rhythm, No JVD Gastrointestinal: non tender, soft, no organomegaly Extremity: Normal Capillary Refill, Normal Inspection, Non Tender, No Calf Tenderness Neurologic/Psychiatric: Alert, Normal Mood/Affect, Disoriented Skin: Normal Color, Warm/Dry Lymphatic: No Adenopathy Assessment/Plan Assessment/Plan Assessment/Plan Left sided pleural effusion s/p thoracentesis poorly diff adenocarcinoma of lungs normocytic anemia - likely 2/2 anemia of chronic dz DVT prophylaxis Possible Pleur-X placement for recurrent pleural effusion pain management continue SCD 2/1 u/s did not demonstrate a large enough pocket yet, will continue to monitor and when large enough will consider placing Pleur-X in left chest chest x ray today. Considering repeat u/s to assess effusion volume possibly tomorrow Supervisory-Addendum Brief Verification & Attestation Participated in pt care: history, MDM, physical Personally performed: exam, history, MDM, supervision of care Care discussed with: Medical Student Procedures: n/a Results interpretation: Verified all documentation Verification and Attestation of Medical Student E/M Service A medical student performed and documented this service in my presence. I reviewed and verified all information documented by the medical student and made modifications to such information, when appropriate. I personally performed the physical exam and medical decision making. Dena Ortiz, Sep 07, 2020,19:20 AIDEE HIRSCH MED STUDENT Sep 07, 2020 07:31 DENA ORTIZ DO Sep 07, 2020 19:20
--- NOTE | 2020-09-07 07:41 | Pulmonary Progress Note ---
Subjective Time Seen by a Provider: 07:39 Subjective/Events-last exam No complications noted. Sepsis Event Evaluation Height, Weight, BMI Height: 5'9.00" Weight: 200lbs. 0.0oz. [id number]; 58.89 BMI Method:Stated Focused Exam Lactate Level 09/04/20 21:00: Lactic Acid Level 1.30 Exam Exam Vital Signs Date Time Temp Pulse Resp B/P (MAP) Pulse Ox O2 Delivery O2 Flow Rate FiO2 09/07/20 06:33 94 Nasal Cannula 1.00 09/07/20 04:07 36.1 96 22 139/78 (98) 95 Nasal Cannula 1.00 09/07/20 03:06 95 Nasal Cannula 1.00 09/07/20 00:00 36.0 99 18 108/54 (72) 95 Nasal Cannula 1.00 09/06/20 22:48 Nasal Cannula 1.00 09/06/20 20:00 95 Nasal Cannula 1.00 09/06/20 20:00 36.2 100 18 120/61 (80) 96 Nasal Cannula 1.00 09/06/20 19:34 93 Nasal Cannula 1.00 09/06/20 16:00 36.1 102 18 117/73 (88) 96 Nasal Cannula 1.00 09/06/20 15:17 91 Room Air 09/06/20 12:00 34.8 107 16 114/72 (86) 95 Nasal Cannula 1.00 09/06/20 11:30 95 Nasal Cannula 1.00 09/06/20 09:54 96 09/06/20 08:00 98 Nasal Cannula 2.00 I & O 09/07/20 07:00 Intake Total 1050 ml Output Total 525 ml Balance 525 ml Height & Weight Height: 5'9.00" Weight: 200lbs. 0.0oz. 90.673610sx; 58.89 BMI Method:Stated General Appearance: No Apparent Distress, Chronically ill HEENT: PERRL/EOMI, Moist Mucous Membranes Neck: Normal Inspection, Supple Respiratory: Chest Non Tender, No Accessory Muscle Use, No Respiratory Distress, Crackles (over L side ), Decreased Breath Sounds (on left) Cardiovascular: Regular Rate, Rhythm, No JVD, No Murmur Capillary Refill: Less Than 3 Seconds Peripheral Pulses: 2+ Radial Pulses (R), 2+ Radial Pulses (L) Gastrointestinal: non tender, soft, no organomegaly Extremity: Normal Capillary Refill, Normal Inspection, Non Tender, No Calf Tenderness Neurologic/Psychiatric: Alert, Normal Mood/Affect, manager 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 Hx of tobacco use Anemia Hyponatremia -Monitor I am going to sign off please call with any questions or concerns. DRE RAMAN DO Sep 07, 2020 07:41
[2020-09-07 08:00] VITALS: BP 145/87
--- NOTE | 2020-09-07 08:24 | Progress Note ---
Subjective Subjective Date Seen by Provider: Sep 07, 2020 Time Seen by Provider: 08:20 PT CONTINUES TO BE PROGRESSIVELY SHORT OF BREATH, HAVE PERSISTENT COUGH, AND WEAKNESS Review of Systems General: No Chills, No Night Sweats Pulmonary: Dyspnea, Cough; No Pleuritic Chest Pain Cardiovascular: No: Chest Pain, Palpitations, Edema Gastrointestinal: No: Nausea, Vomiting, Abdominal Pain All Other Systems Reviewed All Other Systems Reviewed: Yes (Negative excepted noted.) Objective Exam Vital Signs Vital Signs - First Documented 09/04/20 09/05/20 09/05/20 20:54 02:06 02:40 Temp 36.2 Pulse 91 Resp 22 B/P (MAP) 159/99 (119) Pulse Ox 98 O2 Delivery Room Air O2 Flow Rate 2.00 Capillary Refill : Less Than 3 SecondsLess Than 3 Seconds General Appearance: No Apparent Distress, Chronically ill HEENT: PERRL/EOMI, Moist Mucous Membranes Neck: Normal Inspection, Supple Respiratory: Chest Non Tender, No Accessory Muscle Use, No Respiratory Distress, Crackles (over L side ), Decreased Breath Sounds (LEFT SIDE) Cardiovascular: Regular Rate, Rhythm, No JVD, No Murmur Gastrointestinal: Normal Bowel Sounds, Non Tender, Soft Extremity: Normal Capillary Refill, Normal Inspection, Non Tender, No Calf Tenderness Neurologic/Psychiatric: Alert, Normal Mood/Affect, 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 Norm as Tested, Disoriented Skin: Normal Color, Warm/Dry Lymphatic: No Adenopathy Results Lab Microbiology 09/05/20 MRSA Screen - Final, Complete MRSA not isolated 09/05/20 Gram Stain - Final, Resulted 09/05/20 Body Fluid Culture - Preliminary, Resulted No growth 09/04/20 Blood Culture - Preliminary, Resulted No growth Assessment/Plan Assessment/Plan Admission Dx LEFT PLEURAL EFFUSION ADENOCARCINOMA LEFT LUNG PATHOLOGY PENDING HYPERTENSION HYPONATREMIA Assessment and Plan LEFT PLEURAL EFFUSION ADENOCARCINOMA LEFT LUNG PATHOLOGY PENDING HYPERTENSION HYPONATREMIA LEFT PLEURAL EFFUSION WITH KNOWN ADENOCARCINOMA LEFT LUNG PATHOLOGY PENDING - STATUS POST THORACENTESIS WITH 2+ LITERS DRAINED -METASTATIC ADENO FROM [facility] - WAITING ON SPECIAL STAINS FROM PREVIOUS PATHOLOGY - PHONE CALL PLACED TO LAB - WAITING ON PATHOLOGY STILL - MAY NOT BE ENOUGH SPECIMEN PER LAB REPORT. - CONSULT TO ONCOLOGY HYPERTENSION - RESUMED HOME MEDICATIONS. HYPONATREMIA - LIKELY DUE TO MALIGNANCY ESTHER VALDIVIA MD Sep 07, 2020 08:24
[2020-09-07] MEDS: PANTOPRAZOLE 40 MG (PROTONIX) TAB PO SCH (09:00)
--- NOTE | 2020-09-07 09:00 | Diagnostic Imaging Report ---
INDICATION: Left pleural effusion, followup. TECHNIQUE/COMPARISON: A frontal chest was obtained at 8:33 AM and compared to yesterday. FINDINGS: There is cardiomegaly. There is worsening infiltrate in the left midlung. There is some pleural thickening and/or fluid laterally in the left hemithorax. The right lung is clear. There is no pneumothorax. IMPRESSION: Worsening left perihilar infiltrate compared to the prior study. Mild worsening of pleural thickening and/or fluid in the left lateral pleural space. Dictated by: Dictated on workstation # [id number]
[2020-09-07] MEDS ORDERED: AZITHROMYCIN INJECTION 500 MG in NS (IVPB) 250 ML IV NR (09:30)
[2020-09-07] MEDS: cefTRIAXone FOR IV USE 1,000 MG in WATER (STERILE) FOR INJECTION 10 ML IV SCH (09:43)
--- NOTE | 2020-09-07 11:42 | Physical Therapy Evaluation ---
PT Evaluation-General Medical Diagnosis Admission Date Sep 05, 2020 at 01:19 Medical Diagnosis: left pleural effusion/malignant lung masses Onset Date: Sep 05, 2020 Therapy Diagnosis Therapy Diagnosis: generalized weakness/debility Height/Weight Height (Feet): 5 Height (Inches): 9.00 Weight (Pounds): 200 Weight (Ounces): 0.0 Precautions Precautions/Isolations: Fall Prevention, Standard Precautions Referral Physician: Ariana Reason for Referral: Evaluation/Treatment Medical History Pertinent Medical History: HTN Additional Medical History lung cancer Current History ER secondary to SOA Reviewed History: Yes Social History Home: Single Level Current Living Status: Spouse Entry Into Home: Stairs With Railing Prior Prior Level of Function SCALE: Activities may be completed with or without assistive devices. 0-Evermvcznm-ofbckxx completes the activity by him/herself with no assistance from a helper. 5-Set-up or Clean-up Assistance-helper sets up or cleans up; patient completes activity. [place] assists only prior to or following the activity. 4-Supervision or Touching Assistance-helper provides verbal cues and/or touching/steadying and/or contact guard assistance as patient completes activity. Assistance may be provided throughout the activity or intermittently. 3-Partial/Moderate Assistance-helper does LESS THAN HALF the effort. [place] lifts, holds or supports trunk or limbs, but provides less than half the effort. 2-Substantial/Maximal Assistance-helper does MORE THAN HALF the effort. [place] lifts or holds trunk or limbs and provides more than half the effort. 5-Pnxmwemdi-pokbxz does ALL the effort. Patient does none of the effort to complete the activity. Or, the assistance of 2 or more helpers is required for the patient to complete the activity. If activity was not attempted, code reason: 7-Patient Refused. 9-Not Applicable-not attempted and the patient did not perform the activity before the current illness, exacerbation or injury. 10-Not Attempted due to Environmental Limitations-(lack of equipment, weather restraints, etc.). 88-Not Attempted due to Medical Conditions or Safety Concerns. Bed Mobility: 6 Transfers (B,C,W/C): 6 Gait: 6 Stairs: 6 Indoor Mobility (Ambulation): Independent Stairs: Independent Prior Devices Use: None PT Evaluation-Current Subjective Patient agrees to PT. Objective Patient Orientation: Confused Attachments: Oxygen ROM/Strength ROM Lower Extremities bilateral LE WFL Strength Lower Extremities 4/5 grossly bilateral LE Integumentary/Posture Integumentary refer to nursing notes Bowel Incontinence: No Bladder Incontinence: No Posture WFL Neuromuscular (Tone, Coordination, Reflexes) grossly intact Sensory Vision: Wears Glasses Hearing: Functional Transfers Roll Left to Right (QC): 5 Sit to Lying (QC): 5 Lying to Sitting/Side of Bed(Q: 5 Sit to Stand (QC): 3 Chair/Cwv-dd-Yfrir Xfer(QC): 3 chair alarm per RN Gait Does the Patient Walk?: Yes Mode of Locomotion: Walk Anticipated Mode of Locomotion: Walk Walk 10 feet (QC): 3 Walk 50 ft with 2 Turns(QC): 3 Walk 150 ft (QC): 3 Distance: 150' Gait Assistive Device: FWW Comments/Gait Description slightly unsteady with FWW with noted increase SOA with minimal activity Balance Sitting Static: Normal Sitting Dynamic: Normal Standing Static: Fair Standing Dynamic: Fair Assessment/Needs 69 y.o. male, will benefit from skilled PT to address functional strength and mobility to improve current LOF to safely return to home or care facility at maximum LOF. Patient is primary caregiver for spouse with dementia per report. Rehab Potential: Guarded PT Assisted Goals Sensor Operator Goals PT Assisted Goals Time Frame: Sep 18, 2020 Roll Left & Right (QC): 5 Sit to Lying (QC): 5 Lying-Sitting on Side/Bed(QC): 5 Sit to Stand (QC): 4 Chair/Sow-ak-Trmil Xfer(QC): 4 Toilet Transfer (QC): 4 Does the Patient Walk: Yes Walk 10 feet (QC): 4 Walk 50ft with 2 Turns (QC): 4 Walk 150 ft (QC): 4 PT Plan Problem List Problem List: Activity Tolerance, Functional Strength, Safety, Balance, Gait, Transfer Treatment/Plan Treatment Plan: Continue Plan of Care Treatment Plan: Bed Mobility, Education, Functional Activity [place], Functional Strength, Gait, Safety, Therapeutic Exercise, Transfers Treatment Duration: Sep 18, 2020 Frequency: 6 times per week Estimated Hrs Per Day: .25 hour per day Time/GCodes Time In: 1055 Time Out: 1110 Total Billed Treatment Time: 15 [facility] PT Sep 07, 2020 11:42
[2020-09-07] MEDS ORDERED: GADOBUTROL 10 MMOL/10 ML (GADAVIST) VIAL IV ONE (12:00)
[2020-09-07 12:39] VITALS: BP 160/86
--- NOTE | 2020-09-07 13:30 | Diagnostic Imaging Report ---
PROCEDURE: MR imaging of the brain with and without contrast. TECHNIQUE: Multiplanar, multisequence MR imaging of the brain was performed with and without contrast. INDICATION: Lung cancer with body weakness. No prior studies available for comparison. The diffusion weighted images are unremarkable. No diffusion restriction is seen to suggest acute ischemia. The normal expected flow-voids are seen within the carotid siphons. There is periventricular and subcortical white matter signal abnormalities, consistent with chronic microvascular ischemia. No acute intra-axial or extra-axial hemorrhage is detected. Corpus callosum is unremarkable. Sella and parasellar structures are unremarkable. Postcontrast images are without evidence of enhancing lesion, there is an area of T2 and FLAIR signal in the high right posterior parietal frontal region consistent with edema but no definite discrete enhancing mass is identified. There is no midline shift. IMPRESSION: Changes of chronic microvascular ischemia. No definite enhancing lesion is identified to suggest intracranial metastatic disease. Dictated by: Dictated on workstation # [id number]
[2020-09-07 16:00] VITALS: BP 131/64
[2020-09-07 20:00] VITALS: BP 131/65
[2020-09-08] VITALS (7 sets, daily range): BP systolic 103–138; BP diastolic 58–78
[2020-09-08] MEDS: RT-ALBUTEROL INHALER HFA (VENTOLIN HFA) 18 GM IH SCH ×7 (00:22→21:43)
--- NOTE | 2020-09-08 07:45 | Progress Note - Surgery ---
AIDEE HIRSCH MED STUDENT 09/08/20 0745: Subjective Date Seen by a Provider: Sep 08, 2020 Time Seen by a Provider: 07:10 Subjective/Events-last exam Pt states hes 'not breathing good today'. Pt is a poor historian with AMS. Pt started on PT/OT yesterday, pt has tolerated diet but reports reduced appetite- hasnt ate much. No abd pain, chest pain or N/Ving. Pt states he felt hot last night- his temperature was normal range through the night. Review of Systems General: No Chills; Night Sweats, Fatigue Pulmonary: Dyspnea, Cough; No Pleuritic Chest Pain Cardiovascular: No: Chest Pain, Palpitations, Lt Headedness Gastrointestinal: No: Nausea, Vomiting, Abdominal Pain Genitourinary: No Dysuria Objective Exam Vital Signs Date Time Temp Pulse Resp B/P (MAP) Pulse Ox O2 Delivery O2 Flow Rate FiO2 09/08/20 07:02 92 Nasal Cannula 1.00 09/08/20 04:14 36.1 90 19 138/74 (95) 95 Nasal Cannula 1.00 09/08/20 02:37 95 Nasal Cannula 1.00 09/08/20 00:31 36.0 93 19 138/63 (88) 95 Nasal Cannula 1.00 09/07/20 20:00 36.3 93 19 131/65 (87) 94 Nasal Cannula 1.00 09/07/20 19:23 94 Nasal Cannula 1.00 09/07/20 19:20 Nasal Cannula 2.00 09/07/20 16:00 36.0 98 20 131/64 (86) 97 Nasal Cannula 1.00 09/07/20 14:22 92 Nasal Cannula 1.00 09/07/20 12:39 35.7 86 22 160/86 (110) 94 Nasal Cannula 1.00 09/07/20 10:46 94 Nasal Cannula 2.00 09/07/20 08:00 35.8 101 20 145/87 (106) 93 Nasal Cannula 1.00 09/07/20 08:00 Nasal Cannula 2.00 I & O 09/08/20 07:00 Intake Total 1480 ml Output Total 850 ml Balance 630 ml Capillary Refill : Less Than 3 SecondsLess Than 3 Seconds General Appearance: No Apparent Distress, Chronically ill HEENT: PERRL/EOMI, Moist Mucous Membranes Neck: Normal Inspection Respiratory: Chest Non Tender, No Accessory Muscle Use, Crackles (over L side ), Decreased Breath Sounds (on left) Cardiovascular: Regular Rate, Rhythm, No JVD, Normal Peripheral Pulses Peripheral Pulses: 2+ Radial Pulses (R), 2+ Radial Pulses (L) Gastrointestinal: non tender, soft, no organomegaly Extremity: Normal Capillary Refill, Normal Inspection, Non Tender, No Calf Tenderness Neurologic/Psychiatric: Alert, Normal Mood/Affect, Disoriented Skin: Normal Color, Warm/Dry Lymphatic: No Adenopathy Results Lab Microbiology 09/05/20 MRSA Screen - Final, Complete MRSA not isolated 09/05/20 Gram Stain - Final, Resulted 09/05/20 Body Fluid Culture - Preliminary, Resulted No growth 09/04/20 Blood Culture - Preliminary, Resulted No growth Assessment/Plan Assessment/Plan Assessment/Plan Left sided pleural effusion s/p thoracentesis - pts resp status appears slightly worse today. Potential PNA - on azithromycin and ceftriaxone. poorly diff adenocarcinoma of lungs - 2/2 brain MRI neg for jerzy. normocytic anemia - likely 2/2 anemia of chronic dz DVT prophylaxis Possible Pleur-X placement for recurrent pleural effusion Consider CBC pain management continue SCD 09/06 u/s did not demonstrate a large enough pocket yet, will continue to monitor and when large enough will consider placing Pleur-X in left chest repeat x ray today. Considering repeat u/s to assess effusion volume later today. VIJAY ORTIZ DO 09/09/20 0807: Subjective Subjective/Events-last exam Slightly worsening in breathing. No abdominal pain. Denies n/v fever sweats chill or chest pain. Objective Exam General Appearance: No Apparent Distress, Chronically ill HEENT: PERRL/EOMI Neck: Normal Inspection Respiratory: Crackles (over L side ) Cardiovascular: Regular Rate, Rhythm, No JVD Gastrointestinal: non tender, soft, no organomegaly Extremity: Normal Capillary Refill, Normal Inspection, Non Tender, No Calf Tenderness Neurologic/Psychiatric: Alert, Normal Mood/Affect, Disoriented Skin: Normal Color, Warm/Dry Lymphatic: No Adenopathy Assessment/Plan Assessment/Plan Assessment/Plan Left sided pleural effusion s/p thoracentesis - pts resp status appears slightly worse today. Potential PNA - on azithromycin and ceftriaxone. poorly diff adenocarcinoma of lungs - 2/2 brain MRI neg for jerzy. normocytic anemia - likely 2/2 anemia of chronic dz DVT prophylaxis Possible Pleur-X placement for recurrent pleural effusion Dr. Lane would like port placed pain management continue SCD 2/1 u/s did not demonstrate a large enough pocket yet, will continue to monitor and when large enough will consider placing Pleur-X in left chest and port placement Plan at least placing port in tomorrow, if pocket large enough will place pleur- x npo after midnight. Supervisory-Addendum Brief Verification & Attestation Participated in pt care: history, MDM, physical Personally performed: exam, history, MDM, supervision of care Care discussed with: Medical Student Procedures: n/a Results interpretation: Verified all documentation Verification and Attestation of Medical Student E/M Service A medical student performed and documented this service in my presence. I reviewed and verified all information documented by the medical student and made modifications to such information, when appropriate. I personally performed the physical exam and medical decision making. Vijay Ortiz, Sep 08, 2020,12:07 AIDEE HIRSCH MED STUDENT Sep 08, 2020 07:45 VIJAY ORTIZ DO Sep 09, 2020 08:07
[2020-09-08] MEDS: PANTOPRAZOLE 40 MG (PROTONIX) TAB PO SCH (11:06)
[2020-09-08] MEDS: AZITHROMYCIN INJECTION 250 MG in NS (IVPB) 250 ML IV SCH (11:06)
[2020-09-08] MEDS: cefTRIAXone FOR IV USE 1,000 MG in WATER (STERILE) FOR INJECTION 10 ML IV SCH (11:07)
--- NOTE | 2020-09-08 11:14 | Physical Therapy Daily Note ---
PT Daily Note-Current Subjective Patient in bed pre tx, agrees to PT, has minor pain with coughing. Appearance Patient in restroom on commode post tx, instructed patient to use nurse call when done and not get up himself. Mental Status Patient Orientation: Person, Place, Situation Attachments: Oxygen Transfers SCALE: Activities may be completed with or without assistive devices. 6-Glncxintuo-fxsidhh completes the activity by him/herself with no assistance from a helper. 5-Set-up or Clean-up Assistance-helper sets up or cleans up; patient completes activity. [place] assists only prior to or following the activity. 4-Supervision or Touching Assistance-helper provides verbal cues and/or touching/steadying and/or contact guard assistance as patient completes activity. Assistance may be provided throughout the activity or intermittently. 3-Partial/Moderate Assistance-helper does LESS THAN HALF the effort. [place] lifts, holds or supports trunk or limbs, but provides less than half the effort. 2-Substantial/Maximal Assistance-helper does MORE THAN HALF the effort. [place] lifts or holds trunk or limbs and provides more than half the effort. 9-Viugpqjxw-hhfuzh does ALL the effort. Patient does none of the effort to complete the activity. Or, the assistance of 2 or more helpers is required for the patient to complete the activity. If activity was not attempted, code reason: 7-Patient Refused. 9-Not Applicable-not attempted and the patient did not perform the activity before the current illness, exacerbation or injury. 10-Not Attempted due to Environmental Limitations-(lack of equipment, weather restraints, etc.). 88-Not Attempted due to Medical Conditions or Safety Concerns. Roll Left & Right (QC): 6 Lying to Sitting/Side of Bed(Q: 6 Sit to Stand (QC): 4 Chair/Jqj-qh-Pjvpa Xfer(QC): 4 Gait Training Distance: 150' Walk 10 feet (QC): 4 Walk 50 ft with 2 Turns(QC): 4 Walk 150 ft (QC): 4 Gait Persons Needed: 1 Gait Assistive Device: FWW CGA, some unsteadiness, 2 standing rest breaks Exercises Seated Therapy Exercises: Ankle pumps, Long arc quads, Hip flexion Seated Reps: 20 Treatments bed mobility and transfers, ambulation, LE exercise Assessment Current Status: Fair Progress SOB with activity, cues for purse lip breathing PT Policy Services Representative Goals Policy Services Representative Goals PT Jail Goals Time Frame: Sep 18, 2020 Roll Left & Right (QC): 5 Sit to Lying (QC): 5 Lying-Sitting on Side/Bed(QC): 5 Sit to Stand (QC): 4 Chair/Efg-hf-Tixbw Xfer(QC): 4 Toilet Transfer (QC): 4 Does the Patient Walk: Yes Walk 10 feet (QC): 4 Walk 50ft with 2 Turns (QC): 4 Walk 150 ft (QC): 4 PT Plan Problem List Problem List: Activity Tolerance, Functional Strength, Safety, Balance, Gait, Transfer, Bed Mobility, ROM Treatment/Plan Treatment Plan: Continue Plan of Care Treatment Plan: Bed Mobility, Education, Functional Activity [place], Functional Strength, Gait, Safety, Therapeutic Exercise, Transfers Treatment Duration: Sep 18, 2020 Frequency: 6 times per week Estimated Hrs Per Day: .25 hour per day Safety Risks/Education Patient Education: Gait Training, Transfer Techniques, Correct Positioning, Safety Issues Teaching Recipient: Patient Teaching Methods: Demonstration, Discussion Response to Teaching: Reinforcement Needed Time/GCodes Time In: 1053 Time Out: 1106 Total Billed Treatment Time: 13 Total Billed Treatment 1 visit FA 13' ADAM GELLER PT Sep 08, 2020 11:14
--- NOTE | 2020-09-08 12:55 | Progress Note ---
Subjective Subjective Date Seen by Provider: Sep 08, 2020 Time Seen by Provider: 09:00 PT CONTINUES TO HAVE COUGH AND SHORTNESS OF BREATH. HE DENIES BLOODY SPUTUM, HE DENIES ABDOMINAL PAIN, NAUSEA, DIZZINESS. STAFF REPORTS SOME NIGHT-TIME CONFUSION. Review of Systems General: No Chills; Night Sweats, Fatigue Pulmonary: Dyspnea, Cough; No Pleuritic Chest Pain Cardiovascular: No: Chest Pain, Palpitations, Lt Headedness Gastrointestinal: No: Nausea, Vomiting, Abdominal Pain Genitourinary: No Dysuria Neurological: Weakness, Confusion (INTERMITTENT) All Other Systems Reviewed All Other Systems Reviewed: Yes (Negative excepted noted.) Objective Exam Vital Signs Vital Signs - First Documented 09/04/20 09/05/20 09/05/20 20:54 02:06 02:40 Temp 36.2 Pulse 91 Resp 22 B/P (MAP) 159/99 (119) Pulse Ox 98 O2 Delivery Room Air O2 Flow Rate 2.00 Capillary Refill : Less Than 3 SecondsLess Than 3 Seconds General Appearance: No Apparent Distress, Chronically ill HEENT: PERRL/EOMI, Moist Mucous Membranes Neck: Normal Inspection Respiratory: Chest Non Tender, No Accessory Muscle Use, Crackles (over L side ), Decreased Breath Sounds (LEFT SIDED FROM MID LUNG TO BASE) Cardiovascular: Regular Rate, Rhythm, No JVD, Normal Peripheral Pulses Gastrointestinal: Normal Bowel Sounds, Non Tender, Soft Extremity: Normal Capillary Refill, Normal Inspection, Non Tender, No Calf Tenderness Neurologic/Psychiatric: Alert, Normal Mood/Affect, Disoriented Skin: Normal Color, Warm/Dry Lymphatic: No Adenopathy Results Lab Microbiology 09/05/20 MRSA Screen - Final, Complete MRSA not isolated 09/05/20 Gram Stain - Final, Resulted 09/05/20 Body Fluid Culture - Preliminary, Resulted No growth 09/04/20 Blood Culture - Preliminary, Resulted No growth Assessment/Plan Assessment/Plan Admission Dx LEFT PLEURAL EFFUSION ADENOCARCINOMA LEFT LUNG PATHOLOGY PENDING HYPERTENSION HYPONATREMIA Assessment and Plan LEFT PLEURAL EFFUSION ADENOCARCINOMA LEFT LUNG PATHOLOGY PENDING HYPERTENSION HYPONATREMIA LEFT PLEURAL EFFUSION WITH KNOWN ADENOCARCINOMA LEFT LUNG PATHOLOGY PENDING - STATUS POST THORACENTESIS WITH 2+ LITERS DRAINED - PATHOLOGY SHOWS MALIGNANT EFFUSION - WAITING ON SPECIAL STAINS FROM PREVIOUS PATHOLOGY - CONSULT TO ONCOLOGY HYPERTENSION - RESUMED HOME MEDICATIONS. HYPONATREMIA - LIKELY DUE TO MALIGNANCY - IMPROVED SODIUM ESTHER VALDIVIA MD Sep 08, 2020 12:54
[2020-09-08] MEDS: ADVAIR HFA 115/21 MCG INHALER 8 GM IH SCH ×2 (14:26→18:12)
--- NOTE | 2020-09-08 14:26 | NUR ---
RD ASSESSMENT PMHx: CA(lung); HTN; hypercholesterolemia; PT INTERACTION: Pt was awake and pleasant during nutrition assessment. Pt states current appetite is poor and has been this way since admit. Note avg PO intake <25% meals per chart review. Pt states following a regular diet at home, and has no issues with chewing/swallowing food. Pt states no recent issues with n/v/c/d. Note last BM was 2/2, and pt not currently on bowel regimen per chart review. Pt states unsure of recent wt changes. Note unsure of current wt status. Pt does not appear to weight 400# according to his most recent wt. PES STATEMENT: Inadequate oral intake (NI-2.1) related to loss of appetite, as evidenced by pt interview, and avg PO intake <25% meals. INTERVENTION: Continue with current diet order of Regular diet. Add Ensure Enlive (vary) to meals TID for increased kcal intake. Provides 350 kcal and 20 g Pro per serving. Request updated wt. Will continue to follow and reassess as pt needs, intake, and status change. Sussy KEVIN MS RD LD [phone] cell
--- NOTE | 2020-09-08 14:36 | Diagnostic Imaging Report ---
INDICATION: Pleural effusion. TECHNIQUE: Multiple Real-time grayscale sonographic images were obtained of the left chest. CORRELATION STUDY: None FINDINGS: Imaging of the left hemithorax demonstrates perhaps a very small amount of effusion. IMPRESSION: There is perhaps a very small amount of left pleural fluid. Dictated by: Dictated on workstation # [id number]
[2020-09-08] MEDS: MELATONIN 3 MG TABLET PO PRN (21:05)
[2020-09-09] VITALS (8 sets, daily range): BP systolic 101–153; BP diastolic 61–80
[2020-09-09] MEDS: RT-ALBUTEROL INHALER HFA (VENTOLIN HFA) 18 GM IH SCH ×6 (01:31→22:19)
[2020-09-09] MEDS: BENZONATATE 100 MG (TESSALON) CAPSULE PO PRN ×2 (05:05→19:40)
[2020-09-09 05:42] LABS: HEMOGLOBIN 11.2 g/dL (13.3-17.7); MEAN PLATELET VOLUME 8.1 fL (9.0-12.2); WHITE BLOOD COUNT 9.8 10^3/uL (4.3-11.0)
[2020-09-09 06:06] LABS: BUN/CREATININE RATIO 14; CALCIUM 9.2 MG/DL (8.5-10.1); CARBON DIOXIDE 21 MMOL/L (21-32); CHLORIDE 100 MMOL/L (98-107); CREATININE SERUM 0.87 MG/DL (0.60-1.30); GFR ESTIMATED > 60; GLUCOSE 101 MG/DL (70-105); POTASSIUM 3.9 MMOL/L (3.6-5.0); SODIUM 134 MMOL/L (135-145)
[2020-09-09] MEDS: ADVAIR HFA 115/21 MCG INHALER 8 GM IH SCH ×2 (06:45→19:05)
--- NOTE | 2020-09-09 07:37 | Progress Note - Surgery ---
AIDEE HIRSCH MED STUDENT 09/09/20 0737: Subjective Date Seen by a Provider: Sep 09, 2020 Time Seen by a Provider: 07:15 Subjective/Events-last exam Pt denies any new complaints today, states his SOB and cough seems a little better this morning. Per nurse and pt: pt has been NPO since midnight. Pt denies abd pain, diarrhea, constipation, calf pain, chest pain, palpitations. Review of Systems General: No Chills, No Night Sweats Pulmonary: Dyspnea, Cough; No Pleuritic Chest Pain Cardiovascular: No: Chest Pain, Palpitations, Edema Gastrointestinal: No: Nausea, Vomiting, Abdominal Pain, Diarrhea, Constipation Genitourinary: No Dysuria Objective Exam Vital Signs Date Time Temp Pulse Resp B/P (MAP) Pulse Ox O2 Delivery O2 Flow Rate FiO2 09/09/20 06:45 90 Nasal Cannula 1.00 09/09/20 04:05 36.2 87 18 123/67 (85) 94 Nasal Cannula 1.00 09/09/20 01:31 92 Nasal Cannula 1.00 09/08/20 23:58 36.4 94 18 122/73 (89) 96 Nasal Cannula 1.00 09/08/20 21:43 91 Nasal Cannula 1.00 09/08/20 20:30 Nasal Cannula 1.00 09/08/20 20:00 36.1 104 18 112/67 (82) 94 Nasal Cannula 1.00 09/08/20 18:14 91 Nasal Cannula 1.00 09/08/20 16:00 36.2 102 18 138/63 (88) 93 Nasal Cannula 1.00 09/08/20 14:26 91 Nasal Cannula 1.00 09/08/20 12:00 35.9 101 20 103/58 (73) 95 Nasal Cannula 1.00 09/08/20 11:15 92 Nasal Cannula 1.00 09/08/20 08:00 36.1 101 20 133/78 (96) 92 Nasal Cannula 1.00 09/08/20 07:41 Nasal Cannula 1.50 I & O 09/09/20 07:00 Intake Total 1430 ml Output Total 200 ml Balance 1230 ml Capillary Refill : Less Than 3 SecondsLess Than 3 Seconds General Appearance: No Apparent Distress, Chronically ill HEENT: PERRL/EOMI, Moist Mucous Membranes Neck: Normal Inspection Respiratory: Chest Non Tender, No Accessory Muscle Use, Crackles (over L side ), Decreased Breath Sounds (still decreased, but improved compared to 09/08 exam. ) Cardiovascular: Regular Rate, Rhythm, No JVD, Normal Peripheral Pulses Peripheral Pulses: 2+ Radial Pulses (R), 2+ Radial Pulses (L) Gastrointestinal: non tender, soft, no organomegaly Extremity: Normal Capillary Refill, Normal Inspection, Non Tender, No Calf Tenderness Neurologic/Psychiatric: Alert, Normal Mood/Affect, Disoriented Skin: Normal Color, Warm/Dry Lymphatic: No Adenopathy Results Lab Laboratory Tests 09/09/20 05:33: White Blood Count 9.8, Red Blood Count 3.73L, Hemoglobin 11.2L, Hematocrit 33L, Mean Corpuscular Volume 87, Mean Corpuscular Hemoglobin 30, Mean Corpuscular Hemoglobin Concent 34, Red Cell Distribution Width 11.9, Platelet Count 382, M celina Platelet Volume 8.1L, Sodium Level 134L, Potassium Level 3.9, Chloride Level 100, Carbon Dioxide Level 21, Anion Gap 13, Blood Urea Nitrogen 12, Creatinine 0.87, Estimat Glomerular Filtration Rate > 60, BUN/Creatinine Ratio 14, Glucose Level 101, Calcium Level 9.2 Microbiology 09/05/20 MRSA Screen - Final, Complete MRSA not isolated 09/05/20 Gram Stain - Final, Complete 09/05/20 Body Fluid Culture - Final, Complete No growth 09/04/20 Blood Culture - Preliminary, Resulted No growth Assessment/Plan Assessment/Plan Assessment/Plan poorly diff adenocarcinoma of lungs Left sided pleural effusion s/p thoracentesis - 2/3 u/s demonstrated small volume of L. pleural fluid Potential PNA - on azithromycin and ceftriaxone. normocytic anemia - likely 2/2 anemia of chronic dz hyponatremia DVT prophylaxis Port placement scheduled for today. pain management continue SCD, asprin held. possible pleura-X placement today. DENA ORTIZ DO 09/09/20 0923: Subjective Subjective/Events-last exam Some confusion. No new coplaints. Breathing better today. NPO. Objective Exam General Appearance: No Apparent Distress, Chronically ill HEENT: PERRL/EOMI, Moist Mucous Membranes Respiratory: Chest Non Tender, No Accessory Muscle Use, No Respiratory Distress, Crackles (over L side ), Decreased Breath Sounds (still decreased, but improved compared to 2/3 exam. ) Cardiovascular: Regular Rate, Rhythm Gastrointestinal: non tender, soft, no organomegaly Extremity: Normal Capillary Refill, Normal Inspection, Non Tender, No Calf Tenderness Neurologic/Psychiatric: Alert, Disoriented Skin: Normal Color, Warm/Dry Lymphatic: No Adenopathy Assessment/Plan Assessment/Plan Assessment/Plan poorly diff adenocarcinoma of lungs Left sided pleural effusion s/p thoracentesis - 2/3 u/s demonstrated small volume of L. pleural fluid cytology of pleural fluid metastatic adenocarcinoma Potential PNA - on azithromycin and ceftriaxone. normocytic anemia - likely 2/2 anemia of chronic dz hyponatremia DVT prophylaxis Port placement scheduled for today. pain management continue SCD, asprin held. possible pleura-X placement today if large volume npo consent. Supervisory-Addendum Brief Verification & Attestation Participated in pt care: history, MDM, physical Personally performed: exam, history, MDM, supervision of care Care discussed with: Medical Student Procedures: n/a Results interpretation: Verified all documentation Verification and Attestation of Medical Student E/M Service A medical student performed and documented this service in my presence. I reviewed and verified all information documented by the medical student and made modifications to such information, when appropriate. I personally performed the physical exam and medical decision making. Dena Ortiz, Sep 09, 2020,09:23 AIDEE HIRSCH MED STUDENT Sep 09, 2020 07:37 DENA ORTIZ DO Sep 09, 2020 09:23
[2020-09-09] MEDS: PANTOPRAZOLE 40 MG (PROTONIX) TAB PO SCH (08:10)
[2020-09-09] MEDS: AZITHROMYCIN INJECTION 250 MG in NS (IVPB) 250 ML IV SCH (08:45)
[2020-09-09] MEDS: cefTRIAXone FOR IV USE 1,000 MG in WATER (STERILE) FOR INJECTION 10 ML IV SCH (08:45)
--- NOTE | 2020-09-09 08:50 | Progress Note ---
Subjective Subjective Date Seen by Provider: Sep 09, 2020 Time Seen by Provider: 08:50 PT IS A 69 YO MALE WHO IS KNOWN TO ME FROM CLINIC. HE HAS HX OF SMALL CELL LUNG CA ABOUT 18 YEARS AGO AND HAD RADIATION AND CHEMO WITH WHOLE BRAIN RADIATION. RECENT SCAN SHOWED LARGE MASS IN LEFT CHEST WITH NEW PATHOLOGY SHOWING ADENOCARCINOMA, WAITING ON FINAL PATHOLOGY. PT IS GOING DOWN FOR PORT TODAY. HE DENIES CHEST PAIN, CONTINUES TO HAVE SEVERE COUGHING EPISODES INTERMITTENTLY AND SHORTNESS OF BREATH. Review of Systems General: No Chills, No Night Sweats; Fatigue Pulmonary: Dyspnea, Cough; No Pleuritic Chest Pain Cardiovascular: No: Chest Pain, Palpitations, Edema Gastrointestinal: No: Nausea, Vomiting, Abdominal Pain, Diarrhea, Constipation Genitourinary: No Dysuria Musculoskeletal: No: back pain Neurological: Weakness, Confusion (INTERMITTENT); No: Change in speech All Other Systems Reviewed All Other Systems Reviewed: Yes (Negative excepted noted.) Objective Exam Vital Signs Vital Signs - First Documented 09/04/20 09/05/20 09/05/20 20:54 02:06 02:40 Temp 36.2 Pulse 91 Resp 22 B/P (MAP) 159/99 (119) Pulse Ox 98 O2 Delivery Room Air O2 Flow Rate 2.00 Capillary Refill : Less Than 3 SecondsLess Than 3 Seconds General Appearance: No Apparent Distress (AT THIS TIME NO DISTRESS, BUT IS SHORT OF BREATH WITH MOVEMENT IN BED), Chronically ill HEENT: PERRL/EOMI Neck: Normal Inspection Respiratory: Crackles (over L side ), Decreased Breath Sounds (FROM MID LUNG TO BASE ON LEFT) Cardiovascular: Regular Rate, Rhythm, No JVD, Normal Peripheral Pulses Gastrointestinal: Normal Bowel Sounds, No Organomegaly, Non Tender, Soft Rectal: Deferred Extremity: Normal Capillary Refill, Normal Inspection, Non Tender, No Calf Tenderness Neurologic/Psychiatric: Alert, Oriented x3, Normal Mood/Affect Skin: Normal Color, Warm/Dry Lymphatic: No Adenopathy Results Lab Laboratory Tests 09/09/20 05:33: White Blood Count 9.8, Red Blood Count 3.73L, Hemoglobin 11.2L, Hematocrit 33L, Mean Corpuscular Volume 87, Mean Corpuscular Hemoglobin 30, Mean Corpuscular Hemoglobin Concent 34, Red Cell Distribution Width 11.9, Platelet Count 382, Mean Platelet Volume 8.1L, Sodium Level 134L, Potassium Level 3.9, Chloride Level 100, Carbon Dioxide Level 21, Anion Gap 13, Blood Urea Nitrogen 12, Creatinine 0.87, Estimat Glomerular Filtration Rate > 60, BUN/Creatinine Ratio 14, Glucose Level 101, Calcium Level 9.2 Microbiology 09/05/20 MRSA Screen - Final, Complete MRSA not isolated 09/05/20 Gram Stain - Final, Complete 09/05/20 Body Fluid Culture - Final, Complete No growth 09/04/20 Blood Culture - Preliminary, Resulted No growth Assessment/Plan Assessment/Plan Admission Dx LEFT PLEURAL EFFUSION ADENOCARCINOMA LEFT LUNG PATHOLOGY PENDING HYPERTENSION HYPONATREMIA Assessment and Plan LEFT PLEURAL EFFUSION ADENOCARCINOMA LEFT LUNG PATHOLOGY PENDING HYPERTENSION HYPONATREMIA Assessment and Plan LEFT PLEURAL EFFUSION ADENOCARCINOMA LEFT LUNG PATHOLOGY PENDING HYPERTENSION HYPONATREMIA Assessment and Plan LEFT PLEURAL EFFUSION ADENOCARCINOMA LEFT LUNG PATHOLOGY PENDING HYPERTENSION HYPONATREMIA PNEUMONIA LEFT PLEURAL EFFUSION WITH KNOWN ADENOCARCINOMA LEFT LUNG PATHOLOGY PENDING - STATUS POST THORACENTESIS WITH 2+ LITERS DRAINED -METASTATIC ADENO FROM FLUID PATHOLOGY - WAITING ON SPECIAL STAINS FROM PREVIOUS PATHOLOGY - PHONE CALL PLACED TO LAB - WAITING ON PATHOLOGY STILL - MAY NOT BE ENOUGH SPECIMEN PER LAB REPORT. - CONSULT TO ONCOLOGY - PORT PLACEMENT TODAY HYPERTENSION - RESUMED HOME MEDICATIONS. HYPONATREMIA - LIKELY DUE TO MALIGNANCY - IMPROVED SODIUM PNEUMONIA - ON IV ROCEPHIN AND AZITHROMYCIN PLANNING ON PORT TODAY, CHEMOTHERAPY NEXT WEEK. ESTHER VALDIVIA MD Sep 09, 2020 08:50
[2020-09-09] MEDS ORDERED: fentaNYL INJECTION 100 MCG/2 ML AMP ONE (09:20)
[2020-09-09] MEDS ORDERED: PROPOFOL INJECTION 50 ML IV ONE (09:20)
[2020-09-09] MEDS: 0.9% SODIUM CHLORIDE PF INJ 20 ML VIAL ONE ×2 (10:19→12:01)
[2020-09-09] MEDS: LIDOCAINE/EPI 1%-1:200,000 (XYLOCAINE) 10 ML VIAL ONE ×2 (10:20→12:01)
[2020-09-09] MEDS: HEParin (CENTRAL IV FLUSH) 500 UNIT/5 ML SYR ONE ×2 (10:20→12:01)
[2020-09-09] MEDS ORDERED: KETAMINE/NaCl 50 MG/5 ML SYRINGE (ED ONLY) ONE (10:56)
--- NOTE | 2020-09-09 11:28 | Physical Therapy Daily Note ---
PT Daily Note-Current Subjective Patient very agreeable to participate with therapy. Mental Status Patient Orientation: Person, Time, Situation Attachments: Oxygen, IV Transfers SCALE: Activities may be completed with or without assistive devices. 4-Tsuwldeuey-hrfbmnb completes the activity by him/herself with no assistance from a helper. 5-Set-up or Clean-up Assistance-helper sets up or cleans up; patient completes activity. [place] assists only prior to or following the activity. 4-Supervision or Touching Assistance-helper provides verbal cues and/or touching/steadying and/or contact guard assistance as patient completes activity. Assistance may be provided throughout the activity or intermittently. 3-Partial/Moderate Assistance-helper does LESS THAN HALF the effort. [place] lifts, holds or supports trunk or limbs, but provides less than half the effort. 2-Substantial/Maximal Assistance-helper does MORE THAN HALF the effort. [place] lifts or holds trunk or limbs and provides more than half the effort. 3-Kzhnvzkye-xmckbb does ALL the effort. Patient does none of the effort to complete the activity. Or, the assistance of 2 or more helpers is required for the patient to complete the activity. If activity was not attempted, code reason: 7-Patient Refused. 9-Not Applicable-not attempted and the patient did not perform the activity before the current illness, exacerbation or injury. 10-Not Attempted due to Environmental Limitations-(lack of equipment, weather restraints, etc.). 88-Not Attempted due to Medical Conditions or Safety Concerns. Lying to Sitting/Side of Bed(Q: 5 Sit to Stand (QC): 4 Chair/Yhi-uw-Fdvcc Xfer(QC): 4 SBA for safety Gait Training Does the Patient Walk?: Yes Distance: 250' Walk 10 feet (QC): 4 Walk 50 ft with 2 Turns(QC): 4 Walk 150 ft (QC): 4 Gait Assistive Device: FWW safe and functional with FWW with no deviation/SBA by PT Assessment Patient tolerated treatment well and is up in recliner with chair alarm activated for safety. PT Unhairing Machine Operator Goals Nursing Home Goals PT Unhairing Machine Operator Goals Time Frame: Sep 18, 2020 Roll Left & Right (QC): 5 Sit to Lying (QC): 5 Lying-Sitting on Side/Bed(QC): 5 Sit to Stand (QC): 4 Chair/Qah-oq-Ykbum Xfer(QC): 4 Toilet Transfer (QC): 4 Does the Patient Walk: Yes Walk 10 feet (QC): 4 Walk 50ft with 2 Turns (QC): 4 Walk 150 ft (QC): 4 PT Plan Treatment/Plan Treatment Plan: Continue Plan of Care Treatment Plan: Bed Mobility, Education, Functional Activity [place], Functional Strength, Gait, Safety, Therapeutic Exercise, Transfers Treatment Duration: Sep 18, 2020 Frequency: 6 times per week Estimated Hrs Per Day: .25 hour per day Time/GCodes Time In: 954 Time Out: 1005 Total Billed Treatment Time: 11 Total Billed Treatment 1 visit FA 11 min ALISON HAMPTON PT Sep 09, 2020 11:28
[2020-09-09] MEDS ORDERED: LACTATED RINGERS 1,000 ML IV PRN (11:30)
--- NOTE | 2020-09-09 12:21 | Progress Note-Post Operative ---
Post-Operative Progess Note Surgeon (s)/Base Engineer (s) Surgeon DENA FRACNO DO Base Engineer: na Pre-Operative Diagnosis lung cancer Post-Operative Diagnosis same Procedure & Operative Findings Date of Procedure 09/09/20 Procedure Performed/Findings PROCEDURE: Right internal jugular port placement using ultrasound guidance. COMPLICATIONS: None. INDICATIONS: The patient is a 69 year old male with lung cancer. Patient understands the risks and benefits of port placement and wished to proceed with the procedure. Consent was signed on the chart. PROCEDURE: The patient was taken to the operating suite, was prepped and draped in the sterile fashion. A surgical pause was performed. Ultrasound was used to locate the internal jugular vein. Once located anesthetic was infiltrated above it. Using micro-access kit, the right internal vein was accessed. Dark nonpulsatile blood was withdrawn. The wire was inserted. Fluoroscopy assured proper placement. The needle was removed. The micro-access dilator was advanced over the wire and the wire was removed. The regular wire was inserted and fluoroscopy assured proper placement. The wire was then secured. Local anesthetic was used to anesthetize from the neck for tunneling down to the right chest and for pocket creation. A 15 blade scalpel was used to make an incision over the right chest. Cautery was used to dissect down to the pectoral fascia. A pocket was created with blunt dissection. The dilator sheath was then advanced over the wire under fluoroscopy and the dilator and wire were removed. The Groshong catheter was inserted through the sheath and the sheath was then removed. The Groshong wire was removed. The catheter was then tunneled to the right chest pocket. Fluoroscopy was used to cut to length and this was then attached to the port which was then placed within the pocket. The port was then accessed without difficulty. It was then flushed with saline and then heparin. The subcutaneous tissues were then reapproximated using 3-0 Vicryl. The areas were then washed and dried. Skin Affix was placed over incision. The insertion point of the neck Skin Affix was placed over the incision. The patient tolerated the procedure well without complication and was taken to recovery room in stable condition. Chest x-ray is pending. Anesthesia Type mac c local Estimated Blood Loss Estimated blood loss (mL): minimal Specimens/Packing Specimens Removed DENA Monroe DO Sep 09, 2020 12:21
--- NOTE | 2020-09-09 12:33 | Diagnostic Imaging Report ---
INDICATION: Fluoroscopy for port placement. Fluoroscopy was provided in the OR during port placement. 20 seconds of fluoroscopic time was utilized. A single image was obtained demonstrating a right chest wall port with tip overlying SVC. IMPRESSION: Fluoroscopy for port placement. Dictated by: Dictated on workstation # [id number]
--- NOTE | 2020-09-09 12:34 | Anesthesia-General Post-Op ---
MAC Patient Condition Mental Status/LOC: Same as Preop Cardiovascular: Satisfactory Nausea/Vomiting: Absent Respiratory: Satisfactory Pain: Controlled Complications: Absent Post Op Complications Complications None Follow Up Care/Instructions Patient Instructions None needed. Anesthesiology Discharge Order Discharge Order Patient is doing well, no complaints, stable vital signs, no apparent adverse anesthesia problems. No complications reported per nursing. ASHLEY DRAKE CRNA Sep 09, 2020 12:34
--- NOTE | 2020-09-09 12:52 | Diagnostic Imaging Report ---
EXAMINATION: Chest radiograph, portable AP view. DATE: 09/09/2020 12:45 PM INDICATION: 69-year-old male, status post port placement. COMPARISON: September 07, 2020. FINDINGS: The right-sided port catheter tip overlies the mid to upper SVC. There is near complete opacification of left hemithorax which is essentially unchanged. Heart size and mediastinal contours are unchanged. There is no identified pneumothorax. There is no identified new focal airspace consolidation. IMPRESSION: 1. Newly placed right-sided port catheter with tip overlying the mid to upper SVC. No identified complication. 2. Redemonstrated and essentially unchanged near complete opacification of the left hemithorax. Dictated by: Dictated on workstation # [id number]
--- NOTE | 2020-09-09 15:50 | NUR ---
CM/SS visited with the patient for discharge planning. The patient is alert and oriented x3. Plan: The patient will possibly discharge with home health or may need Swing Bed. Home: The patient lives at home with his and xrtasr-ja-xcy. 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 The patient reports that he is independent at his baseline and does not use a walker or cane. Equipment: Denies having any. Home Health: The patient reports he has never had home health but he is familiar with it due to his utilizing it before. He states he does not have a preference and would like to wait and see how he is doing before he chooses one. The patient reports that he would like to discharge home tomorrow because he has been here for a week and is ready to return home. CM/SS will follow with plan of care from physician for discharge planning.
--- NOTE | 2020-09-09 18:27 | Progress Note ---
Standard Progress Note Progress Notes/Assess & Plan Date Seen by a Provider: Sep 09, 2020 Time Seen by a Provider: 18:22 Progress/Assessment & Plan 69-year-old male with recent diagnosis of adenocarcinoma of the left lung. 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 NGS studies from the needle biopsy showed no actionable mutations but the tumor mutational burden was more than 10 indicating response to checkpoint inhibitors. Patient was started on B12 and folic acid last week in anticipation of chemotherapy with carboplatin, Alimta and Keytruda regimen. He required hospitalization with increasing shortness of breath and mental status changes and was found to have large left pleural effusion. He underwent therapeutic thoracentesis with symptomatic improvement and underwent work-up for the confusion with CT scan and MRI of the head with no evidence of metastatic disease but chronic microvascular changes. He is feeling better today and ambulating with physical therapy. Confusion has improved significantly and he is breathing better. He is scheduled for a port placement later today. We will tentatively plan on starting chemotherapy next week. Resume folic acid 1000 mcg p.o. daily. We will follow the patient with you. SARAN MERRITT Sep 09, 2020 18:27
[2020-09-09] MEDS: FOLIC ACID 1 MG TAB PO SCH (18:32)
[2020-09-09] MEDS ORDERED: LORazepam INJ 2 MG/ML (ATIVAN) VIAL ONE (19:20)
[2020-09-09] MEDS: LORazepam INJ 2 MG/ML (ATIVAN) VIAL IVP PRN (19:27)
--- NOTE | 2020-09-09 20:46 | Diagnostic Imaging Report ---
EXAMINATION: Chest 1 view. HISTORY: Increased oxygenation needs. COMPARISON: Chest radiographs performed earlier the same date. FINDINGS: There has been migration of the right port with the tip now overlying the right neck. The chest is stable with near complete opacification of the left hemithorax. No significant opacities are seen in the right lung. IMPRESSION: 1. Migration of the right port tip which now overlies the right neck. Recommend replacing. 2. Stable near complete opacification of the left hemithorax. Report was faxed to "ATTENTION: patient's nurse" in [place] at 8:38 p.m., by raza. Dictated by: Dictated on workstation # [id number]
--- NOTE | 2020-09-09 20:50 | NUR ---
STAT CXR RESULTS COMPLETED AND CALLED TO DR. AVLDIVIA. DR. VALDIVIA IS GOING TO NOTIFY DR. FRANCO OF RESULTS. NO NEW ORDERS AT THIS TIME.
--- NOTE | 2020-09-09 20:50 | NUR ---
STAT CXR RESULTS COMPLETED AND CALLED TO DR. VALDIVIA. DR. VALDIVIA IS GOING TO NOTIFY DR. FRANCO OF RESULTS. NO NEW ORDERS AT THIS TIME.
--- NOTE | 2020-09-09 21:56 | Progress Note - Surgery ---
Subjective Date Seen by a Provider: Sep 09, 2020 Time Seen by a Provider: 21:36 Subjective/Events-last exam Had significant coughing spell and then increased shortness of breath. on vapotherm currently. Chest x ray showing port catheter up into right neck and left hemithorax opacification. Objective Exam Vital Signs Date Time Temp Pulse Resp B/P (MAP) Pulse Ox O2 Delivery O2 Flow Rate FiO2 09/09/20 20:00 36.2 126 22 138/80 (99) 96 Nasal Cannula 1.00 09/09/20 19:30 Vapotherm 20.00 45 09/09/20 19:22 90 Vapotherm 20.00 40 09/09/20 19:05 94 Nasal Cannula 3.00 09/09/20 16:00 35.9 98 18 132/61 (84) 96 Nasal Cannula 1.00 09/09/20 14:50 94 Nasal Cannula 2.00 09/09/20 12:40 OxyMask 2 09/09/20 12:40 36.3 20 101/70 (80) 93 OxyMask 1 09/09/20 12:30 17 105/72 (83) 95 OxyMask 2 09/09/20 12:27 OxyMask 2 09/09/20 12:20 24 126/71 (89) 98 OxyMask 2 09/09/20 12:17 36.3 16 123/71 (88) 93 OxyMask 2 09/09/20 12:17 OxyMask 2 09/09/20 10:55 91 Nasal Cannula 2.00 09/09/20 08:19 36.3 101 22 153/75 (101) 96 Nasal Cannula 1.00 09/09/20 08:00 Nasal Cannula 1.00 09/09/20 06:45 90 Nasal Cannula 1.00 09/09/20 04:05 36.2 87 18 123/67 (85) 94 Nasal Cannula 1.00 09/09/20 01:31 92 Nasal Cannula 1.00 09/08/20 23:58 36.4 94 18 122/73 (89) 96 Nasal Cannula 1.00 I & O 09/09/20 07:00 Intake Total 1430 ml Output Total 200 ml Balance 1230 ml Capillary Refill : Less Than 3 SecondsLess Than 3 Seconds General Appearance: No Apparent Distress, Chronically ill, Mild Distress HEENT: PERRL/EOMI, Moist Mucous Membranes Neck: Normal Inspection Respiratory: Chest Non Tender, Crackles (over L side ), Decreased Breath Sounds (decreased), Other (slightly labored) Cardiovascular: Regular Rate, Rhythm, No JVD Peripheral Pulses: 2+ Radial Pulses (R), 2+ Radial Pulses (L) Gastrointestinal: non tender, soft, no organomegaly Extremity: Normal Capillary Refill, Normal Inspection, Non Tender, No Calf Tenderness Neurologic/Psychiatric: Alert, Disoriented Skin: Normal Color, Warm/Dry Lymphatic: No Adenopathy Results Lab Laboratory Tests 09/09/20 05:33: White Blood Count 9.8, Red Blood Count 3.73L, Hemoglobin 11.2L, Hematocrit 33L, Mean Corpuscular Volume 87, Mean Corpuscular Hemoglobin 30, Mean Corpuscular Hemoglobin Concent 34, Red Cell Distribution Width 11.9, Platelet Count 382, Mean Platelet Volume 8.1L, Sodium Level 134L, Potassium Level 3.9, Chloride Level 100, Carbon Dioxide Level 21, Anion Gap 13, Blood Urea Nitrogen 12, Creatinine 0.87, Estimat Glomerular Filtration Rate > 60, BUN/Creatinine Ratio 14, Glucose Level 101, Calcium Level 9.2 Microbiology 09/08/20 MRSA Screen - Final, Complete MRSA not isolated 09/05/20 Gram Stain - Final, Complete 09/05/20 Body Fluid Culture - Final, Complete No growth 09/04/20 Blood Culture - Preliminary, Resulted No growth Assessment/Plan Assessment/Plan Assessment/Plan poorly diff adenocarcinoma of lungs Left sided pleural effusion s/p thoracentesis - 09/08 u/s demonstrated small volume of L. pleural fluid cytology of pleural fluid metastatic adenocarcinoma Potential PNA - on azithromycin and ceftriaxone. normocytic anemia - likely 2/2 anemia of chronic dz hyponatremia DVT prophylaxis Port placement today catheter has migrated into the neck likely due to increased pressure from coughing spell. Will consult cardiology to see if they can retrieve and pull down into the SVC. u/s used with patient sitting at edge of bed consent obtained for left thoracentesis, had slight blood return and catheter advanced but unable to drain feel may be loculated or large clot. chest x ray will get CT in am of chest pain management continue SCD, asprin held. npo u/s guided left thoracentesis dict # [id number] DENA FRANCO DO Sep 09, 2020 21:56
--- NOTE | 2020-09-09 22:05 | Diagnostic Imaging Report ---
EXAMINATION: Chest 1 view. HISTORY: Postthoracentesis. COMPARISON: Chest radiograph performed the same date. FINDINGS: The right port remains malpositioned with the line extending into the right neck. There is slight decrease in size in the large left pleural effusion with slight improved aeration in the left upper lobe. The right lung is clear. The cardiac silhouette is obscured due to the opacities throughout the left lung. No large pneumothorax. IMPRESSION: 1. Slight decrease in size in the large left pleural effusion with slight improved aeration in the left apex. No evidence of pneumothorax. 2. Continued malposition of the right port with the tip extending into the neck. Recommend repositioning or replacing the right port. Report was faxed to the patient's nurse. Dictated by: Dictated on workstation # [id number]
[2020-09-10] VITALS (10 sets, daily range): BP systolic 113–143; BP diastolic 60–89
--- NOTE | 2020-09-10 01:26 | OPERATIVE REPORT ---
DATE OF SERVICE: 09/09/2020 PREOPERATIVE DIAGNOSIS: Left pleural effusion. POSTOPERATIVE DIAGNOSIS: Left pleural effusion. PROCEDURE: Left thoracentesis, ultrasound-guided. SURGEON: Dena Ortiz DO ANESTHESIA: A 1% lidocaine. ESTIMATED BLOOD LOSS: None. COMPLICATIONS: None. INDICATIONS: The patient is a 69-year-old male with left lung cancer. He has had a malignant pleural effusion that was drained previously. The patient having increasing shortness of breath. He had a complete opacification of the left hemithorax by chest x-ray. Consent was signed on the chart, and obtained for left thoracentesis. DESCRIPTION OF PROCEDURE: The patient was sitting upright position slightly leaning forward. Ultrasound was used to isolate a pocket for insertion of the Urhy-N-Bciseift catheter. The area was prepped and draped in sterile fashion. A timeout was performed. Local anesthetic was infiltrated 3 mL. An 11 blade scalpel was used to make a small skin incision and a Vnvy-M-Hlppbmnq needle and catheter were then advanced, a small amount of thicker blood was returned, which the catheter was then able to be advanced without any difficulty. The catheter was then attached to a vacuum bottle and unable to be any fluid returned. The catheter was repositioned again and again no significant fluid could be returned, I feel there may be a large clot burden within the chest. Therefore, the catheter was then removed, and a sterile bandage was applied. We will obtain a chest x-ray tonight. We will get a CT scan of the chest to further evaluate as well. Job ID: [id number] DocumentID: [id number] Dictated Date: 09/09/2020 22:00:09 Book Shelver Date: 09/10/2020 01:25:49 Dictated By: DENA ORTIZ DO
[2020-09-10] MEDS: RT-ALBUTEROL INHALER HFA (VENTOLIN HFA) 18 GM IH SCH ×6 (02:22→23:01)
--- NOTE | 2020-09-10 06:58 | NUR ---
DR. ENCINAS NOTIFIED OF PATIENT CONSULT
[2020-09-10] MEDS: ADVAIR HFA 115/21 MCG INHALER 8 GM IH SCH ×2 (07:27→18:58)
--- NOTE | 2020-09-10 08:02 | Progress Note - Surgery ---
Subjective Date Seen by a Provider: Sep 10, 2020 Time Seen by a Provider: 07:29 Subjective/Events-last exam Patient breathing a little better this morning than last night. On Vapotherm. Denies any other complaints at this time. Objective Exam Vital Signs Date Time Temp Pulse Resp B/P (MAP) Pulse Ox O2 Delivery O2 Flow Rate FiO2 09/10/20 03:50 35.5 99 17 113/78 (90) 96 Vapotherm 20.00 40.00 09/10/20 02:22 95 Vapotherm 20.00 45 09/10/20 00:00 35.6 108 19 143/89 (107) 96 Vapotherm 20.00 45.00 09/09/20 22:20 93 Vapotherm 20.00 45 09/09/20 20:00 36.2 126 22 138/80 (99) 96 Nasal Cannula 1.00 09/09/20 19:30 Vapotherm 20.00 45 09/09/20 19:22 90 Vapotherm 20.00 40 09/09/20 19:05 94 Nasal Cannula 3.00 09/09/20 16:00 35.9 98 18 132/61 (84) 96 Nasal Cannula 1.00 09/09/20 14:50 94 Nasal Cannula 2.00 09/09/20 12:40 OxyMask 2 09/09/20 12:40 36.3 20 101/70 (80) 93 OxyMask 1 09/09/20 12:30 17 105/72 (83) 95 OxyMask 2 09/09/20 12:27 OxyMask 2 09/09/20 12:20 24 126/71 (89) 98 OxyMask 2 09/09/20 12:17 36.3 16 123/71 (88) 93 OxyMask 2 09/09/20 12:17 OxyMask 2 09/09/20 10:55 91 Nasal Cannula 2.00 09/09/20 08:19 36.3 101 22 153/75 (101) 96 Nasal Cannula 1.00 09/09/20 08:00 Nasal Cannula 1.00 I & O 09/10/20 07:00 Intake Total 650 ml Output Total 600 ml Balance 50 ml Capillary Refill : Less Than 3 SecondsLess Than 3 Seconds General Appearance: No Apparent Distress, Chronically ill HEENT: PERRL/EOMI, Moist Mucous Membranes Neck: Normal Inspection Respiratory: Chest Non Tender, Crackles (over L side ), Decreased Breath Sounds (decreased) Cardiovascular: Regular Rate, Rhythm, No JVD Peripheral Pulses: 2+ Radial Pulses (R), 2+ Radial Pulses (L) Gastrointestinal: non tender, soft, no organomegaly Extremity: Normal Capillary Refill, Normal Inspection, Non Tender, No Calf Tenderness Neurologic/Psychiatric: Alert, Disoriented Skin: Normal Color, Warm/Dry Lymphatic: No Adenopathy Results Lab Microbiology 09/08/20 MRSA Screen - Final, Complete MRSA not isolated 09/05/20 Gram Stain - Final, Complete 09/05/20 Body Fluid Culture - Final, Complete No growth 09/04/20 Blood Culture - Preliminary, Resulted No growth Assessment/Plan Assessment/Plan Assessment/Plan poorly diff adenocarcinoma of lungs Left sided pleural effusion s/p thoracentesis - 09/08 u/s demonstrated small volume of L. pleural fluid cytology of pleural fluid metastatic adenocarcinoma Potential PNA - on azithromycin and ceftriaxone. normocytic anemia - likely 2/2 anemia of chronic dz hyponatremia DVT prophylaxis Port placement catheter has migrated into the neck likely due to increased pressure from coughing spell. Will consult cardiology to see if they can retrieve and pull down into the SVC. u/s used with patient sitting at edge of bed consent obtained for left thoracentesis, had slight blood return and catheter advanced but unable to drain feel may be loculated or large clot. CT of chest this am pain management continue SCD, asprin held. npo DENA FRANCO DO Sep 10, 2020 08:02
--- NOTE | 2020-09-10 08:10 | Diagnostic Imaging Report ---
EXAMINATION: CT Chest without contrast. TECHNIQUE: Multiple contiguous axial images were obtained through the chest without the use of intravenous contrast. All CT scans use one or more of the following dose optimizing techniques: automated exposure control, MA and/or KvP adjustment based on a patient size and exam type, or iterative reconstruction. HISTORY: Left-sided lung cancer and pleural effusion COMPARISON: 09/04/2020 FINDINGS: There is a large left pleural effusion which contains some internal nodularity or debris. It is slightly increased in size from prior exam. Left hilar mass is difficult to differentiate from adjacent collapsed lung and vascular structures in the absence of contrast but is likely unchanged. There is persistent collapse of the left upper lobe. Subclavian thickening in the left upper lung may represent mesenteric carcinomatosis or venous obstruction. There is near complete collapsed left lower lobe. A subcarinal lymph node measures 2.9 cm, previously 2.8 cm. The right upper paratracheal lymph node measures 12 mm, previously 11 mm. There are few new patchy areas of groundglass in the right lung involving the posterior segment right upper lobe and posterior segments of the right lower lobe. No pneumothorax. There is no axillary lymphadenopathy. There are enlarged bilateral supraclavicular lymph nodes measuring up to 10 mm and the left 11 mm on the right. Heart size is normal. There is tiny pericardial effusion. Aorta is normal in caliber. There are mild coronary artery calcifications. There is a new segment V liver lesion measuring 13 mm. There may be a segment II lesion as well, difficult to identify without contrast. There are no suspicious osseous lesions. IMPRESSION: 1. No significant change in the left hilar mass and mediastinal and supraclavicular lymphadenopathy. 2. Left pleural effusion now demonstrates internal debris and soft tissue nodularity likely representing a malignant effusion. This is new from prior exam. 3. New liver lesions are seen in segment V and possibly in segment II. 4. Stable postobstructive collapse of the left upper lobe and partial collapse of the left lower lobe. 5. New areas of groundglass dependently in the right lung which may represent aspiration pneumonitis or viral infection. Dictated by: Dictated on workstation # [id number]
[2020-09-10] MEDS: PANTOPRAZOLE 40 MG (PROTONIX) TAB PO SCH (09:00)
[2020-09-10] MEDS: FOLIC ACID 1 MG TAB PO SCH (09:00)
[2020-09-10] MEDS ORDERED: HEParin (CENTRAL IV FLUSH) 500 UNIT/5 ML SYR ONE (10:04)
[2020-09-10] MEDS ORDERED: 0.9% SODIUM CHLORIDE PF INJ 20 ML VIAL ONE ×2 (10:05→11:10)
[2020-09-10] MEDS ORDERED: LIDOCAINE/EPI 1%-1:100,000 (XYLOCAINE) 50 ML ONE (10:05)
[2020-09-10] MEDS ORDERED: proPOfol 200 MG/20 ML (DIPRIVAN) VIAL IV ONE ×2 (10:33→11:38)
[2020-09-10] MEDS ORDERED: fentaNYL INJECTION 100 MCG/2 ML AMP ONE (10:34)
--- NOTE | 2020-09-10 10:48 | Physical Therapy Progress Note ---
Therapy Progress Note Patient unavailable due to procedure. PT will resume in ALISON Kamara PT Sep 10, 2020 10:48
[2020-09-10] MEDS ORDERED: KETAMINE/NaCl 50 MG/5 ML SYRINGE (ED ONLY) ONE (10:49)
[2020-09-10] MEDS ORDERED: MIDAZOLAM 2 MG/2 ML (VERSED) VIAL ONE (10:49)
--- NOTE | 2020-09-10 10:50 | Progress Note ---
Subjective Subjective Date Seen by Provider: Sep 10, 2020 Time Seen by Provider: 09:00 PT IS A 69 YO MALE WHO IS KNOWN TO ME FROM CLINIC. HE HAS HX OF SMALL CELL LUNG CA ABOUT 18 YEARS AGO AND HAD RADIATION AND CHEMO WITH WHOLE BRAIN RADIATION. RECENT SCAN SHOWED LARGE MASS IN LEFT CHEST WITH NEW PATHOLOGY SHOWING ADENOCARCINOMA, WAITING ON FINAL PATHOLOGY. PT IS STATUS POST PORT PLACEMENT ON 09/09/2020 - HE HAD A VICIOUS COUGHING EPISODE LAST NIGHT AND BECAME SEVERELY SHORT OF BREATH, THIS RESULTED IN A REPEAT CXR WHICH SHOWED THE PORT TIP HAD MIGRATED AND NEEDED REPOSITIONING. I DISCUSSED THE CASE WITH DR. FRANCO LAST NIGHT, HE EMERGENTLY EVALUATED PT FOR POSSIBLE NEED FOR THORACENTESIS AND WAS GOING TO TALK TO CARDIOLOGY ABOUT POSSIBLE INTERVENTION TOMORROW MORNING SINCE WE HAVE NOT YET USED THE PORT. THE PATIENT FEELS A LITTLE BIT BETTER THIS MORNING HE DENIES DIZZINESS, CHEST PAIN, HAS HIS USUAL SHORTNESS OF BREATH. Review of Systems General: No Chills, No Night Sweats; Fatigue Pulmonary: Dyspnea, Cough; No Pleuritic Chest Pain Cardiovascular: No: Chest Pain, Palpitations, Edema Gastrointestinal: No: Nausea, Vomiting, Abdominal Pain, Diarrhea, Constipation Genitourinary: No Dysuria Musculoskeletal: No: neck pain, back pain Neurological: Weakness, Confusion (INTERMITTENT); No: Change in speech All Other Systems Reviewed All Other Systems Reviewed: Yes (Negative excepted noted.) Objective Exam Vital Signs Vital Signs - First Documented 09/04/20 09/05/20 09/05/20 09/09/20 20:54 02:06 02:40 19:22 Temp 36.2 Pulse 91 Resp 22 B/P (MAP) 159/99 (119) Pulse Ox 98 O2 Delivery Room Air O2 Flow Rate 2.00 FiO2 40 Capillary Refill : Less Than 3 SecondsLess Than 3 Seconds General Appearance: No Apparent Distress (AT THIS TIME NO DISTRESS, BUT IS S HORT OF BREATH WITH MOVEMENT IN BED), Chronically ill HEENT: PERRL/EOMI Neck: Normal Inspection Respiratory: Chest Non Tender, No Accessory Muscle Use, Crackles (over L side ), Decreased Breath Sounds (FROM MID LUNG TO BASE ON LEFT) Cardiovascular: Regular Rate, Rhythm, No JVD, Normal Peripheral Pulses Gastrointestinal: Normal Bowel Sounds, No Organomegaly, Non Tender, Soft Rectal: Deferred Extremity: Normal Capillary Refill, Normal Inspection, Non Tender, No Calf Tenderness Neurologic/Psychiatric: Alert, Oriented x3, Normal Mood/Affect Skin: Normal Color, Warm/Dry Lymphatic: No Adenopathy Results Lab Microbiology 09/08/20 MRSA Screen - Final, Complete MRSA not isolated 09/05/20 Gram Stain - Final, Complete 09/05/20 Body Fluid Culture - Final, Complete No growth 09/04/20 Blood Culture - Preliminary, Resulted No growth Assessment/Plan Assessment/Plan Admission Dx LEFT PLEURAL EFFUSION ADENOCARCINOMA LEFT LUNG PATHOLOGY PENDING HYPERTENSION HYPONATREMIA Assessment and Plan LEFT PLEURAL EFFUSION ADENOCARCINOMA LEFT LUNG PATHOLOGY PENDING HYPERTENSION HYPONATREMIA Assessment and Plan LEFT PLEURAL EFFUSION ADENOCARCINOMA LEFT LUNG PATHOLOGY PENDING HYPERTENSION HYPONATREMIA Assessment and Plan LEFT PLEURAL EFFUSION ADENOCARCINOMA LEFT LUNG PATHOLOGY PENDING HYPERTENSION HYPONATREMIA PNEUMONIA MALPOSITION OF PORT TIP WORSENING METASTATIC DISEASE WITH NEW LIVER LESIONS AND POSSIBLE THROMBOSIS OF SUBCLAVIAN LEFT PLEURAL EFFUSION WITH KNOWN ADENOCARCINOMA LEFT LUNG PATHOLOGY PENDING - STATUS POST THORACENTESIS WITH 2+ LITERS DRAINED -METASTATIC ADENO FROM FLUID PATHOLOGY - WAITING ON SPECIAL STAINS FROM PREVIOUS PATHOLOGY - PHONE CALL PLACED TO LAB - WAITING ON PATHOLOGY STILL - MAY NOT BE ENOUGH SPECIMEN PER LAB REPORT. - CONSULT TO ONCOLOGY - PORT PLACEMENT 09/09/2020 WITH NEED FOR REPLACEMENT VERSUS REPOSITIONING OF PORT TIP. - WE DO NOT HAVE INTERVENTIONAL RADIOLOGIST ABLE TO REPOSITION TIP OF PORT, AND DR. FRANCO HAS TO TAKE PT BACK TO SURGERY TO ATTEMPT REPOSITIONING VERSUS REPLACEMENT OF PORT. - I HAVE DISCUSSED WITH PT'S SISTER IN LAW MAN (HIS DPOA) AND ALSO WITH YULIA - THIS IS A SERIOUS SITUATION WITH WORSENING OF HIS DISEASE BURDEN AND WE NEED TO RECONSIDER HIS CODE STATUS - SHE WILL DISCUSS WITH HER FAMILY OVER THE W EEKEND AND MAKE A DECISION ABOUT CODE STATUS. WE ARE HOPEFUL TO START CHEMOTHERAPY NEXT WEEK, BUT HE IS EXTREMELY ILL AND THIS MAY NOT BE SURVIVABLE. HYPERTENSION - RESUMED HOME MEDICATIONS. HYPONATREMIA - IMPROVED SODIUM ON LABS - STABILIZATION - MONITOR. PNEUMONIA - ON IV ROCEPHIN AND AZITHROMYCIN [place] NAME: YULIA BOYD [employer] REC#: [id number] PT STATUS: ADM IN : 1950 PHYSICIAN: DENA FRANCO DO ADMIT DATE: 09/05/20/4TH Draft Date of Exam:09/10/20 CT CHEST WO EXAMINATION: CT Chest without contrast. TECHNIQUE: Multiple contiguous axial images were obtained through the chest without the use of intravenous contrast. All CT scans use one or more of the following dose optimizing techniques: automated exposure control, MA and/or KvP adjustment based on a patient size and exam type, or iterative reconstruction. HISTORY: Left-sided lung cancer and pleural effusion COMPARISON: 09/04/2020 FINDINGS: There is a large left pleural effusion which contains some internal nodularity or debris. It is slightly increased in size from prior exam. Left hilar mass is difficult to differentiate from adjacent collapsed lung and vascular structures in the absence of contrast but is likely unchanged. There is persistent collapse of the left upper lobe. Subclavian thickening in the left upper lung may represent mesenteric carcinomatosis or venous obstruction. There is near complete collapsed left lower lobe. A subcarinal lymph node measures 2.9 cm, previously 2.8 cm. The right upper paratracheal lymph node measures 12 mm, previously 11 mm. There are few new patchy areas of groundglass in the right lung involving the posterior segment right upper lobe and posterior segments of the right lower lobe. No pneumothorax. There is no axillary lymphadenopathy. There are enlarged bilateral supraclavicular lymph nodes measuring up to 10 mm and the left 11 mm on the right. Heart size is normal. There is tiny pericardial effusion. Aorta is normal in caliber. There are mild coronary artery calcifications. There is a new segment V liver lesion measuring 13 mm. There may be a segment II lesion as well, difficult to identify without contrast. There are no suspicious osseous lesions. IMPRESSION: 1. No significant change in the left hilar mass and mediastinal and supraclavicular lymphadenopathy. 2. Left pleural effusion now demonstrates internal debris and soft tissue nodularity likely representing a malignant effusion. This is new from prior exam. 3. New liver lesions are seen in segment V and possibly in segment II. 4. Stable postobstructive collapse of the left upper lobe and partial collapse of the left lower lobe. 5. New areas of groundglass dependently in the right lung which may represent aspiration pneumonitis or viral infection. Dictated on workstation # [id number] Dict: 09/10/20 0758 Trans: 09/10/20 0809 [id number] [id number] Interpreted by: ORESTES CAMARILLO MD Electronically signed by: Admission Dx LEFT PLEURAL EFFUSION ADENOCARCINOMA LEFT LUNG PATHOLOGY PENDING HYPERTENSION HYPONATREMIA Assessment and Plan LEFT PLEURAL EFFUSION ADENOCARCINOMA LEFT LUNG PATHOLOGY PENDING HYPERTENSION HYPONATREMIA Clinical Quality Measures Admission Status Admission Dx LEFT PLEURAL EFFUSION ADENOCARCINOMA LEFT LUNG PATHOLOGY PENDING HYPERTENSION HYPONATREMIA Assessment and Plan LEFT PLEURAL EFFUSION ADENOCARCINOMA LEFT LUNG PATHOLOGY PENDING HYPERTENSION HYPONATREMIA ESTHER VALDIVIA MD Sep 10, 2020 10:50
[2020-09-10] MEDS ORDERED: LACTATED RINGERS 1,000 ML IV PRN (11:15)
--- NOTE | 2020-09-10 11:54 | Progress Note-Post Operative ---
Post-Operative Progess Note Surgeon (s)/Gluer And Slicer Hand (s) Surgeon DENA FRANCO DO Gluer And Slicer Hand: na Pre-Operative Diagnosis lung cancer, malpositioned catheter Post-Operative Diagnosis same Procedure & Operative Findings Date of Procedure 09/10/20 Procedure Performed/Findings PROCEDURE: Removal of Right port, right internal jugular port placement using ultrasound guidance. COMPLICATIONS: None. INDICATIONS: The patient is a 69 year old male with lung cancer and had port placed, had coughing and catheter found to reposition into the right internal jugular. Patient understands the risks and benefits of repositioning and or new port placement and wished to proceed with the procedure. Consent was signed on the chart. PROCEDURE: The patient was taken to the operating suite, was prepped and draped in the sterile fashion. Local anesthetic injected around port. The port was brought out through incision and catheter removed off of port. Guide wire was attempted to be inserted through catheter but unable to place. [place] wire was inserted through catheter and was unable to flip the catheter into the SVC. Catheter was with drawn partially and wire was attempted to be placed into the SVC and it withdrew from the internal jugular vein. At this time pressure was held for 10 min. Ultrasound was used to locate the internal jugular vein. Once located anesthetic was infiltrated above it. Using micro-access kit, the right internal vein was accessed. Dark nonpulsatile blood was withdrawn. The wire was inserted. Fluoroscopy assured proper placement. The needle was removed. The micro-access dilator was advanced over the wire and the wire was removed. The regular wire was inserted and fluoroscopy assured proper placement. The wire was then secured. Local anesthetic was used to anesthetize from the neck for tunneling down to the right chest and for pocket creation. The dilator sheath was then advanced over the wire under fluoroscopy and the dilator and wire were removed. The [place] catheter was inserted through the sheath and the sheath was then removed. The [place] wire was removed. The catheter was then tunneled to the right chest pocket. Fluoroscopy was used to cut to length and this was then attached to the port which was then placed within the pocket. The port was then accessed without difficulty. It was then flushed with saline and then heparin. The subcutaneous tissues were then reapproximated using 3-0 Vicryl. The areas were then washed and dried. Skin Affix was placed over incision. The insertion point of the neck Skin Affix was placed over the incision. The patient tolerated the procedure well without complication and was taken to recovery room in stable condition. Chest x-ray is pending. Anesthesia Type mac c local Estimated Blood Loss Estimated blood loss (mL): minimal Specimens/Packing Specimens Removed na DENA FRANCO DO Sep 10, 2020 11:54
--- NOTE | 2020-09-10 12:08 | Anesthesia-General Post-Op ---
MAC Patient Condition Mental Status/LOC: Same as Preop Cardiovascular: Satisfactory Nausea/Vomiting: Absent Respiratory: Satisfactory Pain: Controlled Complications: Absent Post Op Complications Complications None Follow Up Care/Instructions Patient Instructions None needed. Anesthesiology Discharge Order Discharge Order Patient is doing well, no complaints, stable vital signs, no apparent adverse anesthesia problems. MANOLO MUNOZ DO Sep 10, 2020 12:08
[2020-09-10] MEDS ORDERED: ONDANSETRON 4 MG/2 ML (SDV) Z0FRAN IVP PRN (12:15)
--- NOTE | 2020-09-10 12:18 | Diagnostic Imaging Report ---
INDICATION: Post Port-A-Cath repositioning Frontal chest obtained at 1209 p.m. and is compared to yesterday. Compared to the prior study, the right-sided Port-A-Cath has been repositioned and tip is now overlying the SVC. Right lung is clear. There is no pneumothorax. There is worsening opacity left hemithorax which likely represents, some atelectasis, infiltrate and pleural fluid. There is minimal aeration of the left apex. IMPRESSION: Port-A-Cath repositioned with tip now overlying the upper SVC. No pneumothorax. Extensive opacity left hemithorax again noted is described above with minimal aeration left apex. Dictated by: Dictated on workstation # [id number]
--- NOTE | 2020-09-10 12:20 | NUR ---
Initial Visit by JACINDA Blank. RN present. Power Washer introduced self and spiritual care services. No spiritual affiliation.
[2020-09-10] MEDS: AZITHROMYCIN INJECTION 250 MG in NS (IVPB) 250 ML IV SCH (12:30)
[2020-09-10] MEDS: cefTRIAXone FOR IV USE 1,000 MG in WATER (STERILE) FOR INJECTION 10 ML IV SCH (12:30)
--- NOTE | 2020-09-10 12:35 | Diagnostic Imaging Report ---
INDICATION: Malpositioned Port-A-Cath. COMPARISON: 09/09/2020 Total number of fluoroscopic images saved: 1 Total fluoroscopy time: 78.6 seconds FINDINGS: Single intraoperative image intensifier view of the right chest was obtained during Port-A-Cath manipulation. Images provided show a right internal jugular Port-A-Cath with tip in the high SVC. Evaluation for pneumothorax is suboptimal given fluoroscopic modality. Please note, interpreting radiologist was not present during the procedure. IMPRESSION: Fluoroscopic guidance provided during Port-A-Cath manipulation. Dictated by: Dictated on workstation # [id number]
[2020-09-10] MEDS: BENZONATATE 100 MG (TESSALON) CAPSULE PO SCH ×3 (14:00→20:27)
--- NOTE | 2020-09-10 16:18 | NUR ---
ENTERED TELEPHONE ORDER PER DR. VALDIVIA. DECADRON 4MG PO BID TO START 09/12/20 AT 0900.
--- NOTE | 2020-09-10 18:12 | Physician Query Clarification ---
"Physician Query-General Query to Physician: The medical record reflects the following clinical scenario: History/Risk factors: Pleural effusion, Lung Cancer Clinical Findings: RR consistently 20-26, consistent documentation or SOA at rest, Sa02 90% on 40% FIO2 Treatment: Supplemental 02 with Vapotherm, Albuterol, Thoracentesis, Question: What condition best reflects the above clinical scenario? Please document response in the Progress notes or Discharge Summary. 1. Acute Hypoxic Respiratory Failure 2. Dyspnea with Hypoxia (as currently documented) 3. Other , with explanation of the clinical findings 4. Clinically undetermined, no explanation for the clinical findings Please remember a lack of response to the above will prompt a phone page by CDI/coding staff In responding to this query, please exercise your independent professional j udgment. The purpose of this communication is to more accurately reflect the complexity of your patients condition. The fact that a question is asked does not imply that any particular answer is desired or expected. Thank you for timely response to this clarification. Martha Drake, MSN, RN RN Specialist-Clinical Doc Improvement CD -Health Info Mgmt Operations [address] [facility] t: [phone] | f: [phone] If you are unable to reach me at my extension, I may be working from home. Please contact me at [phone] PHYSICIAN RESPONSE: Based on the clinical findings in the record, please respond to the query above on this document as an addendum. Physician Response: If you have questions please contact: Dinkey Skinner: Ext: Thank you for your time and cooperation. Clinical Laboratory Technologist/Dinkey Skinner This is a permanent part of the medical record MARTHA DARKE Sep 10, 2020 18:12 MAXIMO TEE Sep 16, 2020 09:35"
[2020-09-11 00:30] VITALS: BP 148/84
[2020-09-11] MEDS: RT-ALBUTEROL INHALER HFA (VENTOLIN HFA) 18 GM IH SCH ×6 (02:02→22:51)
[2020-09-11] MEDS: ADVAIR HFA 115/21 MCG INHALER 8 GM IH SCH ×2 (07:05→20:12)
[2020-09-11 08:00] VITALS: BP_SYST 118; BP_SYST 151; BP_DIAS 61; BP_DIAS 76
--- NOTE | 2020-09-11 08:20 | Progress Note - Surgery ---
TRICIA ALEMAN MED STUDENT 09/11/20 0820: Subjective Date Seen by a Provider: Sep 11, 2020 Time Seen by a Provider: 08:13 Subjective/Events-last exam Pt awake and sitting at the side of the bed upon entry. Pt notes continued short of breath especially with movement. Coughing up pink/ red tinged sputum. Tenderness at port site. Pt notes BM last night, but describes poor appetite/ intake. No acute events over night. Review of Systems General: No Chills; Fatigue, Appetite (decreased) HEENT: No Head Aches, No Dysphasia Pulmonary: Dyspnea (at rest and on exertion), Cough (pink/ red tinged sputum) Cardiovascular: No: Chest Pain, Palpitations Gastrointestinal: No: Nausea, Vomiting, Abdominal Pain Genitourinary: No Dysuria, No Retention Musculoskeletal: back pain (chronic), leg pain (chronic) Neurological: No: Weakness, Numbness Objective Exam Vital Signs Date Time Temp Pulse Resp B/P (MAP) Pulse Ox O2 Delivery O2 Flow Rate FiO2 09/11/20 02:03 93 Nasal Cannula 1.00 09/11/20 00:30 36.2 101 20 148/84 (105) 93 Nasal Cannula 1.00 09/10/20 23:01 92 Nasal Cannula 1.00 09/10/20 20:00 Nasal Cannula 1.00 09/10/20 18:56 91 Nasal Cannula 1.00 09/10/20 16:00 36.1 114 22 133/60 (84) 94 Nasal Cannula 4.00 09/10/20 14:25 92 Room Air 09/10/20 12:30 35.8 92 24 113/70 (84) 92 Nasal Cannula 4.00 09/10/20 12:30 OxyMask 2 09/10/20 12:30 36.3 22 128/72 (90) 98 OxyMask 2 09/10/20 12:20 16 128/72 (90) 99 OxyMask 2 09/10/20 12:15 OxyMask 2 09/10/20 12:10 18 113/71 (85) 100 OxyMask 2 09/10/20 12:00 25 122/86 (98) 97 OxyMask 4 09/10/20 12:00 OxyMask 4 09/10/20 11:50 26 123/82 (96) 99 OxyMask 6 09/10/20 11:47 36.4 20 126/82 (97) 98 OxyMask 8 09/10/20 11:47 OxyMask 8 09/10/20 10:24 92 Nasal Cannula 4.00 I & O 09/11/20 07:00 Intake Total 1790 ml Output Total 1000 ml Balance 790 ml Capillary Refill : Less Than 3 SecondsLess Than 3 Seconds General Appearance: Chronically ill, Mild Distress (SOB, has to stop between sentences to steady breathing) HEENT: PERRL/EOMI, Moist Mucous Membranes Neck: Normal Inspection, Non Tender, Supple Respiratory: Accessory Muscle Use, Crackles (over L side ), Decreased Breath Sounds (FROM MID LUNG TO BASE ON LEFT), Other (tenderness over port site) Cardiovascular: Regular Rate, Rhythm, No Gallop, No Murmur Peripheral Pulses: 2+ Radial Pulses (R), 2+ Radial Pulses (L) Gastrointestinal: normal bowel sounds, non tender, soft Extremity: Normal Inspection, Non Tender, No Pedal Edema Neurologic/Psychiatric: Alert, Oriented x3, No Motor/Sensory Deficits, Normal Mood/Affect Skin: Normal Color, Warm/Dry Lymphatic: No Adenopathy (cervical, supraclavicular, axillary) Results Lab Microbiology 09/08/20 MRSA Screen - Final, Complete MRSA not isolated 09/05/20 Gram Stain - Final, Complete 09/05/20 Body Fluid Culture - Final, Complete No growth 09/04/20 Blood Culture - Final, Complete No growth Assessment/Plan Assessment/Plan Assessment/Plan Left Pleural Effusion Adenocarcinoma Left Lung HTN, Hypovolemia Worsening new liver lesions with possible thrombosis of subclavian Hyponatremia - 134 2/ AM Port replaced 09/10 Pain management NPO SCD/ aspRANDY Lovell DO 09/11/20 1113: Subjective Time Seen by a Provider: 10:35 Subjective/Events-last exam Pt seen and examined, no new complaints. Review of Systems General: No Chills; Fatigue HEENT: No Head Aches Pulmonary: Dyspnea (at rest and on exertion), Cough (pink/ red tinged sputum) Cardiovascular: No: Chest Pain, Palpitations Gastrointestinal: No: Nausea, Vomiting, Abdominal Pain Objective Exam General Appearance: No Apparent Distress, Chronically ill HEENT: Moist Mucous Membranes Respiratory: No Accessory Muscle Use, Crackles (over L side ), Decreased Breath Sounds (FROM MID LUNG TO BASE ON LEFT), Other (tenderness over port site) Cardiovascular: Regular Rate, Rhythm, No Murmur Gastrointestinal: non tender, soft Assessment/Plan Assessment/Plan Assessment/Plan Left Pleural Effusion Adenocarcinoma Left Lung HTN, Hypovolemia Worsening new liver lesions with possible thrombosis of subclavian Monitor, pt encouraged to use IS and ambulate. Supervisory-Addendum Brief Verification & Attestation Participated in pt care: history, MDM, physical Personally performed: exam, history, MDM Care discussed with: Medical Student Procedures: n/a Verification and Attestation of Medical Student E/M Service A medical student performed and documented this service. I then reviewed and verified all information documented by the medical student and made modifications to such information, when appropriate. I personally performed a physical exam, medical decision making and then discussed any differences between the notes and made revisions as necessary to create one note. Randy Gracia , 09/11/20 , 11:23 TRICIA ALEMAN MED STUDENT Sep 11, 2020 08:20 RANDY GRACIA DO Sep 11, 2020 11:13
[2020-09-11] MEDS: BENZONATATE 100 MG (TESSALON) CAPSULE PO SCH ×3 (09:14→20:32)
[2020-09-11] MEDS: cefTRIAXone FOR IV USE 1,000 MG in WATER (STERILE) FOR INJECTION 10 ML IV SCH (09:14)
[2020-09-11] MEDS: FOLIC ACID 1 MG TAB PO SCH (09:14)
[2020-09-11] MEDS: PANTOPRAZOLE 40 MG (PROTONIX) TAB PO SCH (09:14)
[2020-09-11] MEDS: LORazepam INJ 2 MG/ML (ATIVAN) VIAL IVP PRN (09:18)
[2020-09-11] MEDS: AZITHROMYCIN INJECTION 250 MG in NS (IVPB) 250 ML IV SCH (09:24)
--- NOTE | 2020-09-11 09:51 | Physical Therapy Daily Note ---
PT Daily Note-Current Subjective Pt is in bed on arrival and agreeable to PT. Mental Status Patient Orientation: Person, Place, Time, Situation Attachments: Oxygen Transfers SCALE: Activities may be completed with or without assistive devices. 2-Bdafvfroqb-zgbmkxs completes the activity by him/herself with no assistance from a helper. 5-Set-up or Clean-up Assistance-helper sets up or cleans up; patient completes activity. [place] assists only prior to or following the activity. 4-Supervision or Touching Assistance-helper provides verbal cues and/or touching/steadying and/or contact guard assistance as patient completes activity. Assistance may be provided throughout the activity or intermittently. 3-Partial/Moderate Assistance-helper does LESS THAN HALF the effort. [place] lifts, holds or supports trunk or limbs, but provides less than half the effort. 2-Substantial/Maximal Assistance-helper does MORE THAN HALF the effort. [place] lifts or holds trunk or limbs and provides more than half the effort. 5-Hrcaroeuj-ziesvk does ALL the effort. Patient does none of the effort to complete the activity. Or, the assistance of 2 or more helpers is required for the patient to complete the activity. If activity was not attempted, code reason: 7-Patient Refused. 9-Not Applicable-not attempted and the patient did not perform the activity before the current illness, exacerbation or injury. 10-Not Attempted due to Environmental Limitations-(lack of equipment, weather restraints, etc.). 88-Not Attempted due to Medical Conditions or Safety Concerns. Roll Left & Right (QC): 6 Sit to Lying (QC): 6 Lying to Sitting/Side of Bed(Q: 6 Sit to Stand (QC): 6 Chair/Xte-wi-Brzzt Xfer(QC): 6 Gait Training Does the Patient Walk?: Yes Distance: 200ft Walk 10 feet (QC): 6 Walk 50 ft with 2 Turns(QC): 6 Walk 150 ft (QC): 6 Gait Persons Needed: 1 Gait Assistive Device: FWW Limited by dyspnea. Oxygen at 95% at start. Unable to attain reading after walking. Exercises Seated Therapy Exercises: LE Protocol Seated Reps: 15 Assessment Current Status: Good Progress Pt is motivated to get up and ambulate so that he can maintain his (I). PT Pension Adviser Goals Group Home Goals PT Pension Adviser Goals Time Frame: Sep 18, 2020 Roll Left & Right (QC): 5 Sit to Lying (QC): 5 Lying-Sitting on Side/Bed(QC): 5 Sit to Stand (QC): 4 Chair/Kdl-uj-Umnfb Xfer(QC): 4 Toilet Transfer (QC): 4 Does the Patient Walk: Yes Walk 10 feet (QC): 4 Walk 50ft with 2 Turns (QC): 4 Walk 150 ft (QC): 4 PT Plan Treatment/Plan Treatment Plan: Continue Plan of Care Treatment Plan: Bed Mobility, Education, Functional Activity [place], Functional Strength, Gait, Safety, Therapeutic Exercise, Transfers Treatment Duration: Sep 18, 2020 Frequency: 6 times per week Estimated Hrs Per Day: .25 hour per day Time/GCodes Time In: 0845 Time Out: 0900 Total Billed Treatment Time: 15 Total Billed Treatment 1, gt 15 URVASHI ORELLANA PT Sep 11, 2020 09:51
--- NOTE | 2020-09-11 10:32 | Progress Note ---
Subjective Subjective Date Seen by Provider: Sep 11, 2020 Time Seen by Provider: 10:59 69 yo M with left pleural effusion, respiratory failure and adenocarcinoma (metastatic). He denies any pain right now. He does feel better compared to admission but knows his time of living isn't very long. When discussing code status- he is closer to saying DNR as he acknowledges if he codes it isn't likely that we will get him back. Review of Systems General: No Chills; Fatigue, Appetite (decreased) HEENT: No Head Aches, No Dysphasia Pulmonary: Dyspnea (at rest and on exertion), Cough (pink/ red tinged sputum) Cardiovascular: No: Chest Pain, Palpitations Gastrointestinal: No: Nausea, Vomiting, Abdominal Pain Genitourinary: No Dysuria, No Retention Musculoskeletal: back pain (chronic), leg pain (chronic) Neurological: No: Weakness, Numbness All Other Systems Reviewed All Other Systems Reviewed: Yes (Negative excepted noted.) Objective Exam Vital Signs Vital Signs Date Time Temp Pulse Resp B/P (MAP) Pulse Ox O2 Delivery O2 Flow Rate FiO2 09/11/20 08:00 35.8 91 20 151/76 (101) 94 Nasal Cannula 2.00 09/11/20 02:03 93 Nasal Cannula 1.00 09/11/20 00:30 36.2 101 20 148/84 (105) 93 Nasal Cannula 1.00 09/10/20 23:01 92 Nasal Cannula 1.00 09/10/20 20:00 Nasal Cannula 1.00 09/10/20 18:56 91 Nasal Cannula 1.00 09/10/20 16:00 36.1 114 22 133/60 (84) 94 Nasal Cannula 4.00 09/10/20 14:25 92 Room Air 09/10/20 12:30 35.8 92 24 113/70 (84) 92 Nasal Cannula 4.00 09/10/20 12:30 OxyMask 2 09/10/20 12:30 36.3 22 128/72 (90) 98 OxyMask 2 09/10/20 12:20 16 128/72 (90) 99 OxyMask 2 09/10/20 12:15 OxyMask 2 09/10/20 12:10 18 113/71 (85) 100 OxyMask 2 09/10/20 12:00 25 122/86 (98) 97 OxyMask 4 09/10/20 12:00 OxyMask 4 09/10/20 11:50 26 123/82 (96) 99 OxyMask 6 09/10/20 11:47 36.4 20 126/82 (97) 98 OxyMask 8 09/10/20 11:47 OxyMask 8 I & O 09/11/20 07:00 Intake Total 1790 ml Output Total 1000 ml Balance 790 ml General Appearance: Chronically ill, Mild Distress (SOB, has to stop between sentences to steady breathing) HEENT: PERRL/EOMI, Moist Mucous Membranes Neck: Normal Inspection, Non Tender, Supple Respiratory: Accessory Muscle Use, Crackles (over L side ), Decreased Breath Sounds (LEFT lung), Other (tenderness over port site) Cardiovascular: Regular Rate, Rhythm, No Gallop, No Murmur Gastrointestinal: Normal Bowel Sounds, No Organomegaly, Non Tender, Soft Rectal: Deferred Extremity: Normal Inspection, Non Tender, No Pedal Edema Neurologic/Psychiatric: Alert, Oriented x3, No Motor/Sensory Deficits, Normal Mood/Affect Skin: Normal Color, Warm/Dry Lymphatic: No Adenopathy (cervical, supraclavicular, axillary) Results Lab Microbiology 09/08/20 MRSA Screen - Final, Complete MRSA not isolated 09/05/20 Gram Stain - Final, Complete 09/05/20 Body Fluid Culture - Final, Complete No growth 09/04/20 Blood Culture - Final, Complete No growth Assessment/Plan Assessment/Plan Assessment and Plan Admission 09/05/20- 09/05/20- left thoracentesis - PORT PLACEMENT 09/09/2020, coughing fit dislodged it - had to be replaced 09/10/20. 09/11/20- monitoring progression of left pleural effusion. monitor blood pressure, electrolytes and respiratory status. Surgery is consulted as is Oncology. Starting dexamethasone. -on supplemental oxygen. 2L - on rocephin and azithromycin for pneumonia- stop date 09/12/20 Dispo: patient is declining due to his multiple medical issues; he is still full code. Likelihood of a resuscitation is low in the event he codes. Family and patient are to be discussing what Aniceto's wishes are for his care. Prognosis: poor. Problems: (1) Pleural effusion on left (2) Hyponatremia (3) Small cell lung cancer (4) Adenocarcinoma, lung (5) HTN (hypertension) Assessment & Plan: continue home medications (6) Acute respiratory failure with hypoxia THALIA SHIPLEY MD Sep 11, 2020 10:32
--- NOTE | 2020-09-11 10:45 | NUR ---
received report sheets from Janeen Mckeon to assume nursing care, Patient in bed, bedalarm on, o2 on per nc at 4 liters, denies pain or sob, frequent productive cough, call light within reach
[2020-09-11 16:00] VITALS: BP 142/77
[2020-09-11] MEDS: hydrOXYzine (ATARAX) 10 MG TAB PO PRN (16:15)
[2020-09-12] VITALS: BP 133/70
[2020-09-12] MEDS: RT-ALBUTEROL INHALER HFA (VENTOLIN HFA) 18 GM IH SCH ×6 (03:06→23:34)
[2020-09-12 05:59] LABS: BASOPHILS # (AUTO) 0.1 10^3/uL (0.0-0.1); BASOPHILS % (AUTO) 1 % (0-10); EOSINOPHILS # (AUTO) 0.2 10^3/uL (0.0-0.3); EOSINOPHILS % (AUTO) 2 % (0-10); HEMATOCRIT 32 % (40-54); HEMOGLOBIN 10.5 g/dL (13.3-17.7); LYMPHOCYTES # (AUTO) 0.7 10^3/uL (1.0-4.0); LYMPHOCYTES % (AUTO) 8 % (12-44); MEAN CORPUSCULAR HEMOGLOBIN 29 pg (25-34); MEAN CORPUSCULAR HGB CONC 33 g/dL (32-36); MEAN CORPUSCULAR VOLUME 89 fL (80-99); MEAN PLATELET VOLUME 8.1 fL (9.0-12.2); MONOCYTES # (AUTO) 1.1 10^3/uL (0.0-1.0); MONOCYTES % (AUTO) 12 % (0-12); NEUTROPHILS # (AUTO) 6.8 10^3/uL (1.8-7.8); NEUTROPHILS % (AUTO) 77 % (42-75); PLATELET COUNT 407 10^3/uL (130-400); WHITE BLOOD COUNT 8.9 10^3/uL (4.3-11.0)
[2020-09-12 06:13] LABS: CHLORIDE 101 MMOL/L (98-107); POTASSIUM 4.2 MMOL/L (3.6-5.0); SODIUM 135 MMOL/L (135-145)
[2020-09-12 06:14] LABS: CALCIUM 8.8 MG/DL (8.5-10.1)
[2020-09-12 06:15] LABS: GLUCOSE 86 MG/DL (70-105)
[2020-09-12 06:16] LABS: CARBON DIOXIDE 24 MMOL/L (21-32)
[2020-09-12 06:19] LABS: CREATININE SERUM 0.79 MG/DL (0.60-1.30); GFR ESTIMATED > 60
[2020-09-12 06:20] LABS: BUN/CREATININE RATIO 15
[2020-09-12] MEDS: ADVAIR HFA 115/21 MCG INHALER 8 GM IH SCH ×2 (07:08→19:31)
[2020-09-12 08:00] VITALS: BP 147/79
[2020-09-12] MEDS: PANTOPRAZOLE 40 MG (PROTONIX) TAB PO SCH (08:25)
[2020-09-12] MEDS: FOLIC ACID 1 MG TAB PO SCH (08:26)
[2020-09-12] MEDS: BENZONATATE 100 MG (TESSALON) CAPSULE PO SCH ×3 (08:26→20:34)
--- NOTE | 2020-09-12 10:21 | Progress Note ---
Subjective Subjective Date Seen by Provider: Sep 12, 2020 Time Seen by Provider: 10:15 69 yo M with left pleural effusion, respiratory failure and adenocarcinoma (metastatic). He is eating breakfast this AM. He reports he has an appetite. He would like to get up and have someone walk him around the floor which would help him feel better instead of laying in the bed all day. Review of Systems General: No Chills; Fatigue HEENT: No Head Aches Pulmonary: Dyspnea (at rest and on exertion), Cough (pink/ red tinged sputum) Cardiovascular: No: Chest Pain, Palpitations Gastrointestinal: No: Nausea, Vomiting, Abdominal Pain Genitourinary: No Dysuria, No Retention Musculoskeletal: back pain (chronic), leg pain (chronic) Neurological: No: Weakness, Numbness All Other Systems Reviewed All Other Systems Reviewed: Yes (Negative excepted noted.) Objective Exam Vital Signs Vital Signs Date Time Temp Pulse Resp B/P (MAP) Pulse Ox O2 Delivery O2 Flow Rate FiO2 09/12/20 08:00 Nasal Cannula 3.00 09/12/20 08:00 35.0 113 28 147/79 (101) 91 Nasal Cannula 3.00 09/12/20 03:06 94 Nasal Cannula 3.00 09/12/20 00:00 35.8 89 20 133/70 (91) 94 Nasal Cannula 4.00 09/11/20 22:52 93 Nasal Cannula 3.00 09/11/20 20:12 92 Nasal Cannula 3.00 09/11/20 20:00 Nasal Cannula 4.00 09/11/20 16:00 36.3 105 18 142/77 (98) 97 Nasal Cannula 2.00 09/11/20 15:00 92 Nasal Cannula 3.00 09/11/20 10:45 Nasal Cannula 1.00 09/11/20 10:45 92 Nasal Cannula 3.00 I & O 09/12/20 07:00 Intake Total 1480 ml Output Total 1225 ml Balance 255 ml General Appearance: Chronically ill, Mild Distress (respiratory) HEENT: Moist Mucous Membranes Neck: Normal Inspection, Non Tender, Supple Respiratory: No Accessory Muscle Use, Crackles (over L side ), Decreased Breath Sounds (left lung field), Other Cardiovascular: Regular Rate, Rhythm, No Murmur Gastrointestinal: Normal Bowel Sounds, No Organomegaly, Non Tender, Soft Rectal: Deferred Extremity: Normal Inspection, Non Tender, No Pedal Edema Neurologic/Psychiatric: Alert, Oriented x3, No Motor/Sensory Deficits, Normal Mood/Affect Skin: Normal Color, Warm/Dry Lymphatic: No Adenopathy (cervical, supraclavicular, axillary) Results Lab Laboratory Tests 09/12/20 05:51: White Blood Count 8.9, Red Blood Count 3.58L, Hemoglobin 10.5L, Hematocrit 32L, Mean Corpuscular Volume 89, Mean Corpuscular Hemoglobin 29, Mean Corpuscular Hemoglobin Concent 33, Red Cell Distribution Width 12.1, Platelet Count 407H, Mean Platelet Volume 8.1L, Immature Granulocyte % (Auto) 0, Neutrophils (%) (Auto) 77H, Lymphocytes (%) (Auto) 8L, Monocytes (%) (Auto) 12, Eosinophils (%) (Auto) 2, Basophils (%) (Auto) 1, Neutrophils # (Auto) 6.8, Lymphocytes # (Auto) 0.7L, Monocytes # (Auto) 1.1H, Eosinophils # (Auto) 0.2, Basophils # (Auto) 0.1, Immature Granulocyte # (Auto) 0.0, Sodium Level 135, Potassium Level 4.2, Chloride Level 101, Carbon Dioxide Level 24, Anion Gap 10, Blood Urea Nitrogen 12, Creatinine 0.79, Estimat Glomerular Filtration Rate > 60, BUN/Creatinine Ratio 15, Glucose Level 86, Calcium Level 8.8 Microbiology 09/08/20 MRSA Screen - Final, Complete MRSA not isolated 09/05/20 Gram Stain - Final, Complete 09/05/20 Body Fluid Culture - Final, Complete No growth 09/04/20 Blood Culture - Final, Complete No growth Assessment/Plan Assessment/Plan Assessment and Plan Admission 09/05/20- 09/05/20- left thoracentesis - PORT PLACEMENT 09/09/2020, coughing fit dislodged it - had to be replaced 09/10/20. 09/11/20- monitoring progression of left pleural effusion. monitor blood pressure, electrolytes and respiratory status. Surgery is consulted as is Oncology. Starting dexamethasone. -on supplemental oxygen. 2L - on rocephin and azithromycin for pneumonia- stop date 09/12/20 09/12/20- looked better today. Dexamethasone might have perked him up a little. Also should help with his cough and a little in regards to his metastatic disease with inflammation/swelling. Would be good if he could get up and walk as tolerated. continue to monitor respiratory status -may need left pleural effusion drained again if it reaccummulates Dispo: patient is declining due to his multiple medical issues; he is still full code. Likelihood of a resuscitation is low in the event he codes. Family and patient are to be discussing what Aniceto's wishes are for his care. Prognosis: poor. Problems: (1) Pleural effusion on left (2) Hyponatremia (3) Adenocarcinoma, lung (4) Small cell lung cancer (5) HTN (hypertension) Assessment & Plan: continue home medications (6) Acute respiratory failure with hypoxia THALIA SHIPLEY MD Sep 12, 2020 10:21
[2020-09-12] MEDS: LORazepam INJ 2 MG/ML (ATIVAN) VIAL IVP PRN (11:04)
--- NOTE | 2020-09-12 12:02 | Progress Note - Surgery ---
Subjective Time Seen by a Provider: 11:30 Subjective/Events-last exam Pt seen and examined, no complaints. Review of Systems General: Fatigue Pulmonary: Dyspnea, Cough Cardiovascular: No: Chest Pain, Palpitations Gastrointestinal: No: Nausea, Vomiting Objective Exam Vital Signs Date Time Temp Pulse Resp B/P (MAP) Pulse Ox O2 Delivery O2 Flow Rate FiO2 09/12/20 08:00 Nasal Cannula 3.00 09/12/20 08:00 35.0 113 28 147/79 (101) 91 Nasal Cannula 3.00 09/12/20 03:06 94 Nasal Cannula 3.00 09/12/20 00:00 35.8 89 20 133/70 (91) 94 Nasal Cannula 4.00 09/11/20 22:52 93 Nasal Cannula 3.00 09/11/20 20:12 92 Nasal Cannula 3.00 09/11/20 20:00 Nasal Cannula 4.00 09/11/20 16:00 36.3 105 18 142/77 (98) 97 Nasal Cannula 2.00 09/11/20 15:00 92 Nasal Cannula 3.00 I & O 09/12/20 07:00 Intake Total 1480 ml Output Total 1225 ml Balance 255 ml Capillary Refill : Less Than 3 SecondsLess Than 3 Seconds General Appearance: No Apparent Distress, Chronically ill HEENT: Moist Mucous Membranes Respiratory: No Accessory Muscle Use, Crackles (over L side ), Decreased Breath Sounds (left lung field), Other Cardiovascular: Regular Rate, Rhythm, No Murmur Peripheral Pulses: 2+ Radial Pulses (R), 2+ Radial Pulses (L) Gastrointestinal: non tender, soft Extremity: No Pedal Edema Neurologic/Psychiatric: Alert, Oriented x3 Results Lab Laboratory Tests 09/12/20 05:51: White Blood Count 8.9, Red Blood Count 3.58L, Hemoglobin 10.5L, Hematocrit 32L, Mean Corpuscular Volume 89, Mean Corpuscular Hemoglobin 29, Mean Corpuscular Hemoglobin Concent 33, Red Cell Distribution Width 12.1, Platelet Count 407H, Mean Platelet Volume 8.1L, Immature Granulocyte % (Auto) 0, Neutrophils (%) (Auto) 77H, Lymphocytes (%) (Auto) 8L, Monocytes (%) (Auto) 12, Eosinophils (%) (Auto) 2, Basophils (%) (Auto) 1, Neutrophils # (Auto) 6.8, Lymphocytes # (Auto) 0.7L, Monocytes # (Auto) 1.1H, Eosinophils # (Auto) 0.2, Basophils # (Auto) 0.1, Immature Granulocyte # (Auto) 0.0, Sodium Level 135, Potassium Level 4.2, Chloride Level 101, Carbon Dioxide Level 24, Anion Gap 10, Blood Urea Nitrogen 12, Creatinine 0.79, Estimat Glomerular Filtration Rate > 60, BUN/Creatinine Ratio 15, Glucose Level 86, Calcium Level 8.8 Microbiology 09/08/20 MRSA Screen - Final, Complete MRSA not isolated 09/05/20 Gram Stain - Final, Complete 09/05/20 Body Fluid Culture - Final, Complete No growth 09/04/20 Blood Culture - Final, Complete No growth Assessment/Plan Assessment/Plan Assessment/Plan Left Pleural Effusion Adenocarcinoma Left Lung HTN, Hypovolemia Worsening new liver lesions with possible thrombosis of subclavian Pt encouraged to increase PO intake, use IS and ambulate. LÁZARO GRACIA DO Sep 12, 2020 12:02
[2020-09-12 15:26] VITALS: BP 141/83
[2020-09-13 00:10] VITALS: BP 140/82
[2020-09-13] MEDS: RT-ALBUTEROL INHALER HFA (VENTOLIN HFA) 18 GM IH SCH ×6 (02:57→21:45)
[2020-09-13] MEDS: ADVAIR HFA 115/21 MCG INHALER 8 GM IH SCH ×2 (07:01→18:48)
--- NOTE | 2020-09-13 07:50 | Progress Note - Surgery ---
AIDEE HIRSCH MED STUDENT 09/13/20 0750: Subjective Date Seen by a Provider: Sep 13, 2020 Time Seen by a Provider: 07:30 Subjective/Events-last exam Pt states his breathing has been stable this weekend. Pt very eager to get up and move around more. Sister states that the dexamethasone has helped 'a lot' with coughing and dyspnea. Pt denies any new complaints including chest pain, abd pain, N/Ving, hematochezia. No constipation or diarrhea. Review of Systems General: No Chills, No Night Sweats Pulmonary: Dyspnea, Cough; No Pleuritic Chest Pain Cardiovascular: No: Chest Pain, Palpitations, Edema Gastrointestinal: No: Nausea, Vomiting, Abdominal Pain, Diarrhea, Constipation Genitourinary: No Dysuria Neurological: Weakness Objective Exam Vital Signs Date Time Temp Pulse Resp B/P (MAP) Pulse Ox O2 Delivery O2 Flow Rate FiO2 09/13/20 07:01 93 Nasal Cannula 4.00 09/13/20 02:58 94 Nasal Cannula 4.00 09/13/20 00:10 36.0 100 22 140/82 (101) 95 Nasal Cannula 4.00 09/12/20 23:34 93 Nasal Cannula 4.00 09/12/20 20:00 Nasal Cannula 4.00 09/12/20 19:34 93 Nasal Cannula 4.00 09/12/20 19:31 91 Nasal Cannula 4.00 09/12/20 15:26 36.0 104 18 141/83 (102) 93 Nasal Cannula 4.00 09/12/20 14:46 92 Nasal Cannula 4.00 09/12/20 10:30 90 Nasal Cannula 3.00 09/12/20 08:00 Nasal Cannula 3.00 09/12/20 08:00 35.0 113 28 147/79 (101) 91 Nasal Cannula 3.00 I & O 09/13/20 07:00 Intake Total 1720 ml Output Total 2000 ml Balance -280 ml Capillary Refill : Less Than 3 SecondsLess Than 3 Seconds General Appearance: No Apparent Distress, Chronically ill HEENT: PERRL/EOMI, Moist Mucous Membranes Respiratory: No Accessory Muscle Use, No Respiratory Distress, Crackles (over L side ), Decreased Breath Sounds (left lung field) Cardiovascular: Regular Rate, Rhythm, No Murmur, Normal Peripheral Pulses Peripheral Pulses: 2+ Radial Pulses (R), 2+ Radial Pulses (L) Gastrointestinal: normal bowel sounds, non tender, soft Extremity: No Pedal Edema Neurologic/Psychiatric: Alert, Normal Mood/Affect, quilt stuffer II-XII Norm as Tested Skin: Normal Color, Ecchymosis (around port placement), Other (Port placement R side- c/d/i) Lymphatic: No Adenopathy Results Lab Microbiology 09/08/20 MRSA Screen - Final, Complete MRSA not isolated 09/05/20 Gram Stain - Final, Complete 09/05/20 Body Fluid Culture - Final, Complete No growth 09/04/20 Blood Culture - Final, Complete No growth Assessment/Plan Assessment/Plan Assessment/Plan Loculated left pleural effusion Poorly diff Adenocarcinoma of Lungs New Liver lesion from Possible Supa Normocytic anemia Encourage IS and ambulation Pain management Oxygen DENA ORTIZ DO 09/13/20 0930: Subjective Subjective/Events-last exam Patient states breathing is okay. Not coughing as much. No chest pain. Denies n/v fever sweats chills or chest pain. Objective Exam General Appearance: No Apparent Distress HEENT: PERRL/EOMI, Moist Mucous Membranes Respiratory: Chest Non Tender, Crackles (over L side ), Decreased Breath Sounds (left lung field), Other (port right chest) Cardiovascular: Regular Rate, Rhythm, No JVD Gastrointestinal: non tender, soft Neurologic/Psychiatric: Alert Skin: Normal Color, Ecchymosis (around port placement) Lymphatic: No Adenopathy Assessment/Plan Assessment/Plan Assessment/Plan Loculated left pleural effusion malignant effusion Poorly diff Adenocarcinoma of Lungs New Liver lesion from Possible Supa Normocytic anemia s/p port placement x 2 Encourage IS and ambulation Pain management Oxygen Left chest effusion unable to be drained to improve function of the left lung. Do not feel he would tolerate any operative intervention at this time, may improve with chemo. Will sign off, call if needed. Supervisory-Addendum Brief Verification & Attestation Participated in pt care: history, MDM, physical Personally performed: exam, history, MDM, supervision of care Care discussed with: Medical Student Procedures: n/a Results interpretation: Verified all documentation Verification and Attestation of Medical Student E/M Service A medical student performed and documented this service in my presence. I reviewed and verified all information documented by the medical student and made modifications to such information, when appropriate. I personally performed the physical exam and medical decision making. Dena Ortiz, Sep 13, 2020,09:30 AIDEE HIRSCH MED STUDENT Sep 13, 2020 07:50 DENA ORTIZ DO Sep 13, 2020 09:30
[2020-09-13 08:00] VITALS: BP 179/94
--- NOTE | 2020-09-13 08:25 | Progress Note ---
Subjective Subjective Date Seen by Provider: Sep 13, 2020 Time Seen by Provider: 08:30 PT IS A 69 YO MALE WHO IS KNOWN TO ME FROM CLINIC. HE HAS HX OF SMALL CELL LUNG CA ABOUT 18 YEARS AGO AND HAD RADIATION AND CHEMO WITH WHOLE BRAIN RADIATION. RECENT SCAN SHOWED LARGE MASS IN LEFT CHEST WITH NEW PATHOLOGY SHOWING ADENOCARCINOMA, WAITING ON FINAL PATHOLOGY. PT IS STATUS POST PORT PLACEMENT ON 09/09/2020 WITH REPLACEMENT ON 09/10/2020 DUE TO MIGRATION OF PORT TIP DUE PT COUGHING. YULIA IS ANXIOUS TO GO HOME SOON POSSIBLE Review of Systems General: No Chills, No Night Sweats HEENT: No Head Aches Pulmonary: Dyspnea, Cough; No Pleuritic Chest Pain Cardiovascular: No: Chest Pain, Palpitations, Edema Gastrointestinal: No: Nausea, Vomiting, Abdominal Pain, Diarrhea, Constipation Genitourinary: No Dysuria Musculoskeletal: back pain (chronic), leg pain (chronic) Neurological: Weakness All Other Systems Reviewed All Other Systems Reviewed: Yes (Negative excepted noted.) Objective Exam Vital Signs Vital Signs - First Documented 09/07/20 09/09/20 00:00 19:22 Temp 36.0 Pulse 99 Resp 18 B/P (MAP) 108/54 (72) Pulse Ox 95 O2 Delivery Nasal Cannula O2 Flow Rate 1.00 FiO2 40 Capillary Refill : Less Than 3 SecondsLess Than 3 Seconds General Appearance: No Apparent Distress, Chronically ill HEENT: PERRL/EOMI, Moist Mucous Membranes Respiratory: No Accessory Muscle Use, No Respiratory Distress, Crackles (over L side ), Decreased Breath Sounds (left lung field) Cardiovascular: Regular Rate, Rhythm, No Murmur, Normal Peripheral Pulses Gastrointestinal: Normal Bowel Sounds, No Organomegaly, Non Tender, Soft Rectal: Deferred Extremity: No Pedal Edema Neurologic/Psychiatric: Alert, Normal Mood/Affect, cardiac care nurse II-XII Norm as Tested Skin: Normal Color, Ecchymosis (around port placement), Other (Port placement R side- c/d/i) Lymphatic: No Adenopathy Results Lab Microbiology 09/08/20 MRSA Screen - Final, Complete MRSA not isolated 09/05/20 Gram Stain - Final, Complete 09/05/20 Body Fluid Culture - Final, Complete No growth 09/04/20 Blood Culture - Final, Complete No growth Assessment/Plan Assessment/Plan Admission Dx LEFT PLEURAL EFFUSION ADENOCARCINOMA LEFT LUNG PATHOLOGY PENDING HYPERTENSION HYPONATREMIA Assessment and Plan LEFT PLEURAL EFFUSION ADENOCARCINOMA LEFT LUNG PATHOLOGY PENDING HYPERTENSION HYPONATREMIA Assessment and Plan LEFT PLEURAL EFFUSION ADENOCARCINOMA LEFT LUNG PATHOLOGY PENDING HYPERTENSION HYPONATREMIA Assessment and Plan LEFT PLEURAL EFFUSION ADENOCARCINOMA LEFT LUNG PATHOLOGY PENDING HYPERTENSION HYPONATREMIA PNEUMONIA MALPOSITION OF PORT TIP WORSENING METASTATIC DISEASE WITH NEW LIVER LESIONS AND POSSIBLE THROMBOSIS OF SUBCLAVIAN LEFT PLEURAL EFFUSION WITH KNOWN ADENOCARCINOMA LEFT LUNG PATHOLOGY PENDING - STATUS POST THORACENTESIS WITH 2+ LITERS DRAINED -METASTATIC ADENO FROM FLUID PATHOLOGY - WAITING ON SPECIAL STAINS FROM PREVIOUS PATHOLOGY - PHONE CALL PLACED TO LAB - WAITING ON PATHOLOGY STILL - MAY NOT BE ENOUGH SPECIMEN PER LAB REPORT. - CONSULT TO ONCOLOGY - PORT PLACEMENT 09/09/2020 WITH NEED FOR REPLACEMENT VERSUS REPOSITIONING OF PORT TIP. - WE DO NOT HAVE INTERVENTIONAL RADIOLOGIST ABLE TO REPOSITION TIP OF PORT, AND DR. FRANCO HAS TO TAKE PT BACK TO SURGERY TO ATTEMPT REPOSITIONING VERSUS REPLACEMENT OF PORT. - I HAVE DISCUSSED WITH PT'S SISTER IN LAW MAN (HIS DPOA) AND ALSO WITH YULIA - THIS IS A SERIOUS SITUATION WITH WORSENING OF HIS DISEASE BURDEN AND WE NEED TO RECONSIDER HIS CODE STATUS - SHE WILL DISCUSS WITH HER FAMILY OVER THE WEEKEND AND MAKE A DECISION ABOUT CODE STATUS. WE ARE HOPEFUL TO START CHEMOTHERAPY NEXT WEEK, BUT HE IS EXTREMELY ILL AND THIS MAY NOT BE SURVIVABLE. HYPERTENSION - RESUMED HOME MEDICATIONS. HYPONATREMIA - IMPROVED SODIUM ON LABS - STABILIZATION - MONITOR. PNEUMONIA - ON IV ROCEPHIN AND AZITHROMYCIN [place], [place] NAME: YULIA BOYD [facility] REC#: [id number] PT STATUS: ADM IN : 1950 PHYSICIAN: DENA FRANCO DO ADMIT DATE: 09/05/20 Draft Date of Exam:09/10/20 CT CHEST WO EXAMINATION: CT Chest without contrast. TECHNIQUE: Multiple contiguous axial images were obtained through the chest without the use of intravenous contrast. All CT scans use one or more of the following dose optimizing techniques: automated exposure control, MA and/or KvP adjustment based on a patient size and exam type, or iterative reconstruction. HISTORY: Left-sided lung cancer and pleural effusion COMPARISON: 09/04/2020 FINDINGS: There is a large left pleural effusion which contains some internal nodularity or debris. It is slightly increased in size from prior exam. Left hilar mass is difficult to differentiate from adjacent collapsed lung and vascular structures in the absence of contrast but is likely unchanged. There is persistent collapse of the left upper lobe. Subclavian thickening in the left upper lung may represent mesenteric carcinomatosis or venous obstruction. There is near complete collapsed left lower lobe. A subcarinal lymph node measures 2.9 cm, previously 2.8 cm. The right upper paratracheal lymph node measures 12 mm, previously 11 mm. There are few new patchy areas of groundglass in the right lung involving the posterior segment right upper lobe and posterior segments of the right lower lobe. No pneumothorax. There is no axillary lymphadenopathy. There are enlarged bilateral supraclavicular lymph nodes measuring up to 10 mm and the left 11 mm on the right. Heart size is normal. There is tiny pericardial effusion. Aorta is normal in caliber. There are mild coronary artery calcifications. There is a new segment V liver lesion measuring 13 mm. There may be a segment II lesion as well, difficult to identify without contrast. There are no suspicious osseous lesions. IMPRESSION: 1. No significant change in the left hilar mass and mediastinal and supraclavicular lymphadenopathy. 2. Left pleural effusion now demonstrates internal debris and soft tissue nodularity likely representing a malignant effusion. This is new from prior exam. 3. New liver lesions are seen in segment V and possibly in segment II. 4. Stable postobstructive collapse of the left upper lobe and partial collapse of the left lower lobe. 5. New areas of groundglass dependently in the right lung which may represent aspiration pneumonitis or viral infection. Dictated on workstation # [id number] Dict: 09/10/20 [id number] Trans: 09/10/20 0809 CV [id number] Interpreted by: ORESTES CAMARILLO MD Electronically signed by: Problems: (1) Pleural effusion on left (2) Hyponatremia (3) Adenocarcinoma, lung (4) Small cell lung cancer (5) HTN (hypertension) Assessment & Plan: continue home medications (6) Acute respiratory failure with hypoxia Admission Dx LEFT PLEURAL EFFUSION ADENOCARCINOMA LEFT LUNG PATHOLOGY PENDING HYPERTENSION HYPONATREMIA Assessment and Plan LEFT PLEURAL EFFUSION ADENOCARCINOMA LEFT LUNG PATHOLOGY PENDING HYPERTENSION HYPONATREMIA Clinical Quality Measures Admission Status Admission Dx LEFT PLEURAL EFFUSION ADENOCARCINOMA LEFT LUNG PATHOLOGY PENDING HYPERTENSION HYPONATREMIA Assessment and Plan LEFT PLEURAL EFFUSION ADENOCARCINOMA LEFT LUNG PATHOLOGY PENDING HYPERTENSION HYPONATREMIA ESTHER VALDIVIA MD Sep 13, 2020 08:25
[2020-09-13] MEDS: BENZONATATE 100 MG (TESSALON) CAPSULE PO SCH ×3 (08:29→19:48)
[2020-09-13] MEDS: FOLIC ACID 1 MG TAB PO SCH (08:29)
[2020-09-13] MEDS: PANTOPRAZOLE 40 MG (PROTONIX) TAB PO SCH (08:29)
--- NOTE | 2020-09-13 09:48 | NUR ---
THIS RN RECEIVED TELEPHONE ORDER FROM DR. VALDIVIA FOR PT/OT FOR STRENGTHENING. ORDER ENTERED AT THIS TIME.
--- NOTE | 2020-09-13 09:51 | Physical Therapy Daily Note ---
PT Daily Note-Current Subjective Patient agrees to PT. No c/o. Family present. Mental Status Patient Orientation: Person, Time, Situation Attachments: Oxygen Transfers SCALE: Activities may be completed with or without assistive devices. 8-Eznoyrdjje-mrpivkn completes the activity by him/herself with no assistance from a helper. 5-Set-up or Clean-up Assistance-helper sets up or cleans up; patient completes activity. [place] assists only prior to or following the activity. 4-Supervision or Touching Assistance-helper provides verbal cues and/or touching/steadying and/or contact guard assistance as patient completes activity. Assistance may be provided throughout the activity or intermittently. 3-Partial/Moderate Assistance-helper does LESS THAN HALF the effort. [place] lifts, holds or supports trunk or limbs, but provides less than half the effort. 2-Substantial/Maximal Assistance-helper does MORE THAN HALF the effort. [place] lifts or holds trunk or limbs and provides more than half the effort. 1-Xgcekceyv-oslxjp does ALL the effort. Patient does none of the effort to complete the activity. Or, the assistance of 2 or more helpers is required for the patient to complete the activity. If activity was not attempted, code reason: 7-Patient Refused. 9-Not Applicable-not attempted and the patient did not perform the activity before the current illness, exacerbation or injury. 10-Not Attempted due to Environmental Limitations-(lack of equipment, weather restraints, etc.). 88-Not Attempted due to Medical Conditions or Safety Concerns. Lying to Sitting/Side of Bed(Q: 5 Sit to Stand (QC): 4 Chair/Pfo-pj-Uoqtk Xfer(QC): 4 slightly unsteady with sit to stand with self correct Gait Training Does the Patient Walk?: Yes Distance: 275' Walk 10 feet (QC): 4 Walk 50 ft with 2 Turns(QC): 4 Walk 150 ft (QC): 4 Gait Assistive Device: FWW slightly unsteady with self correct. CGA for safety Exercises Seated Therapy Exercises: Ankle pumps, Long arc quads Seated Reps: 15 Assessment Patient is up in recliner with chair alarm activated. Increase activity as tolerated by patient. PT Mathematics Department Chair Goals Mathematics Department Chair Goals PT Group Home Goals Time Frame: Sep 18, 2020 Roll Left & Right (QC): 5 Sit to Lying (QC): 5 Lying-Sitting on Side/Bed(QC): 5 Sit to Stand (QC): 4 Chair/Cll-ub-Uoirf Xfer(QC): 4 Toilet Transfer (QC): 4 Does the Patient Walk: Yes Walk 10 feet (QC): 4 Walk 50ft with 2 Turns (QC): 4 Walk 150 ft (QC): 4 PT Plan Treatment/Plan Treatment Plan: Continue Plan of Care Treatment Plan: Bed Mobility, Education, Functional Activity Dedrick, Functional Strength, Gait, Safety, Therapeutic Exercise, Transfers Treatment Duration: Sep 18, 2020 Frequency: 6 times per week Estimated Hrs Per Day: .25 hour per day Time/GCodes Time In: 925 Time Out: 938 Total Billed Treatment Time: 13 Total Billed Treatment 1 visit FA 13 min ALISON HAMPTON PT Sep 13, 2020 09:51
[2020-09-13 16:21] VITALS: BP 136/81
[2020-09-13] MEDS: MELATONIN 3 MG TABLET PO PRN (19:47)
[2020-09-13] MEDS: CARVEDILOL 3.125 MG (COREG) TABLET PO SCH (19:48)
[2020-09-14 00:40] VITALS: BP 137/79
[2020-09-14] MEDS: RT-ALBUTEROL INHALER HFA (VENTOLIN HFA) 18 GM IH SCH ×2 (01:34→06:44)
[2020-09-14] MEDS: ADVAIR HFA 115/21 MCG INHALER 8 GM IH SCH (06:44)
[2020-09-14] MEDS: PANTOPRAZOLE 40 MG (PROTONIX) TAB PO SCH (07:53)
[2020-09-14] MEDS: CARVEDILOL 3.125 MG (COREG) TABLET PO SCH (07:53)
[2020-09-14] MEDS: BENZONATATE 100 MG (TESSALON) CAPSULE PO SCH (07:54)
[2020-09-14 08:00] VITALS: BP 151/71
[2020-09-14] MEDS ORDERED: FOLIC ACID 1 MG TAB PO SCH (09:00)
--- NOTE | 2020-09-14 09:14 | Discharge Summary ---
Diagnosis/Chief Complaint Date of Admission Sep 05, 2020 at 01:19 Date of Discharge Discharge Date: Sep 14, 2020 Discharge Time: 09 Admission Diagnosis Admission Diagnosis LEFT PLEURAL EFFUSION ADENOCARCINOMA LEFT LUNG PATHOLOGY PENDING HYPERTENSION HYPONATREMIA PNEUMONIA MALPOSITION OF PORT TIP WORSENING METASTATIC DISEASE WITH NEW LIVER LESIONS AND POSSIBLE THROMBOSIS OF SUBCLAVIAN Discharge Diagnosis LEFT PLEURAL EFFUSION ADENOCARCINOMA LEFT LUNG PATHOLOGY PENDING HYPERTENSION HYPONATREMIA PNEUMONIA MALPOSITION OF PORT TIP WORSENING METASTATIC DISEASE WITH NEW LIVER LESIONS AND POSSIBLE THROMBOSIS OF SUBCLAVIAN Reason Hospital Visit Pt is a 69CM with a PMh of recurrent small cell lung cancer who presented to the ER due to SOB. He states that he had small cell lung cancer roughly 20 years ago and did well but it has recurred recently. He was seen by Dr Schmidt to get staging scans done and pet was done on 08/17 which revealed lung mass and effusions. Imaging last night revealed significant worsening of the effusion from then though he states his symptoms really only started yesterday. He was unable to answer many questions yesterday and does better today though still was limited in his responses at times and HPI is somewhat limited by this. He knows that he has had a recurrence but he was unable to tell me about the imaging. RN reports this morning he has a recurrence of SOB but patient denies this as well or any events. He did have an ABG and CXR though to evaluate this that he does not seem to recall. Discharge Summary Consultations DR. FRANCO, DR. SCHMIDT Discharge Physical Examination Allergies: Coded Allergies: No Known Drug Allergies (Unverified , 04/01/18) Vitals & I&Os Vital Signs Date Time Temp Pulse Resp B/P (MAP) Pulse Ox O2 Delivery O2 Flow Rate FiO2 09/14/20 08:00 Nasal Cannula 3.00 09/14/20 06:44 90 09/14/20 00:40 35.9 73 18 137/79 (98) 09/10/20 07:27 45 General Appearance: Alert, Oriented X3, Cooperative HEENT: Atraumatic, PERRLA, Mucous Memb Moist/[place] Respiratory: Other (NO BREATH SOUNDS LEFT MID LUNG TO BASE, CLEAR ON RIGHT) Cardiovascular: Regular Rate Abdominal: Normal Bowel Sounds, Soft Extremities: No Clubbing, No Cyanosis Skin: No Rashes, No Breakdown Neuro: Normal Speech, Cranial Nerves 3-12 NL Psych/Mental Status: Mental Status NL, Mood NL Hospital Course LEFT PLEURAL EFFUSION ADENOCARCINOMA LEFT LUNG PATHOLOGY PENDING HYPERTENSION HYPONATREMIA PNEUMONIA MALPOSITION OF PORT TIP WORSENING METASTATIC DISEASE WITH NEW LIVER LESIONS AND POSSIBLE THROMBOSIS OF SUBCLAVIAN LEFT PLEURAL EFFUSION WITH KNOWN ADENOCARCINOMA LEFT LUNG PATHOLOGY PENDING - STATUS POST THORACENTESIS WITH 2+ LITERS DRAINED -METASTATIC ADENO FROM FLUID PATHOLOGY - WAITING ON SPECIAL STAINS FROM PREVIOUS PATHOLOGY - PHONE CALL PLACED TO LAB - WAITING ON PATHOLOGY STILL - MAY NOT BE ENOUGH SPECIMEN PER LAB REPORT. - CONSULT TO ONCOLOGY - PORT PLACEMENT 09/09/2020 WITH NEED FOR REPLACEMENT VERSUS REPOSITIONING OF PORT TIP. - WE DO NOT HAVE INTERVENTIONAL RADIOLOGIST ABLE TO REPOSITION TIP OF PORT, AND DR. FRANCO HAD TO TAKE PT BACK TO SURGERY REPLACE THE PORT. - I HAVE DISCUSSED WITH PT'S SISTER IN LAW CONWAY (HIS DPOA) AND ALSO WITH YULIA - THIS IS A SERIOUS SITUATION WITH WORSENING OF HIS DISEASE BURDEN AND WE NEED TO RECONSIDER HIS CODE STATUS. CHEMOTHERAPY WAS STARTED YESTERDAY. HYPERTENSION - RESUMED HOME MEDICATIONS. HYPONATREMIA - IMPROVED SODIUM ON LABS - STABILIZATION - MONITOR. PNEUMONIA - ON IV ROCEPHIN AND AZITHROMYCIN Discharge Condition at discharge STABLE Instructions to patient/family Please see electronic discharge instructions given to patient. Discharge Medications Reviewed and agree with Discharge Medication list on patient's Discharge Instruction sheet ESTHER VALDIVIA MD Sep 14, 2020 09:14
== END 2020-09-14 09:14 | disposition swing bed (61) | DRG 180 ==
LOC: EDUNIT# 20:42 → ER 20:45 → CSD 09-05 01:19 → 4TH 09-06 11:20
PROVIDERS: ADMIT Family Medicine; ATTEND Family Medicine
PROC: 0W9B3ZZ Drainage of Left Pleural Cavity, Percutaneous Approach (ICD-10-PCS; principal; 2020-09-05)
PROC: 0JH60XZ Insertion of Tunneled Vascular Access Device into Chest Subcutaneous Tissue and Fascia, Open Approach (ICD-10-PCS; 2020-09-10)
PROC: 02HV33Z Insertion of Infusion Device into Superior Vena Cava, Percutaneous Approach (ICD-10-PCS; 2020-09-10)
PROC: 0JPT0XZ Removal of Tunneled Vascular Access Device from Trunk Subcutaneous Tissue and Fascia, Open Approach (ICD-10-PCS; 2020-09-10)
PROC: 02PA33Z Removal of Infusion Device from Heart, Percutaneous Approach (ICD-10-PCS; 2020-09-10)
DX: C34.12 Malignant neoplasm of upper lobe, left bronchus or lung (principal); J96.01 Acute respiratory failure with hypoxia; J18.9 Pneumonia, unspecified organism; C78.7 Secondary malignant neoplasm of liver and intrahepatic bile duct; C77.1 Secondary and unspecified malignant neoplasm of intrathoracic lymph nodes; C79.51 Secondary malignant neoplasm of bone; J91.0 Malignant pleural effusion; E22.2 Syndrome of inappropriate secretion of antidiuretic hormone; T82.524A Displacement of infusion catheter, initial encounter; E86.1 Hypovolemia; I10 Essential (primary) hypertension; E78.00 Pure hypercholesterolemia, unspecified; M19.91 Primary osteoarthritis, unspecified site; H54.3 Unqualified visual loss, both eyes; D63.8 Anemia in other chronic diseases classified elsewhere; K21.9 Gastro-esophageal reflux disease without esophagitis; Z87.891 Personal history of nicotine dependence; Z20.822 Contact with and (suspected) exposure to COVID-19
CPT/HCPCS: 36415; 70450; 70553; 71045; 71250; 76000; 76604; 76942; 80048; 80053; 80306; 80320; 81000; 82805; 83605; 83615; 83735; 83874; 83880; 84100; 84145; 84443; 84484; 85025; 85027; 85379; 85610; 85652; 85730; 86141; 87040; 87070; 87081; 87205; 87635; 87804; 88112; 88305; 89051; 93005; 93041; 94640; 94760

== ENCOUNTER 2020-09-14 09:12 | Inpatient (IN) | payer MEDICARE, OTHER ==
[~2020-09-14] VITALS: Ht 175.2 cm; Wt 86.2 kg
[~2020-09-14 09:12] MED LIST changes: +FOLI1TAB33 PO; +OXYC10TA7 PO
[2020-09-14] MEDS ORDERED: ANTACID SUSP 30 ML UDC (MYLANTA) PO PRN (09:30)
[2020-09-14] MEDS ORDERED: fentaNYL INJECTION 100 MCG/2 ML AMP IVP PRN (09:30)
[2020-09-14] MEDS ORDERED: MILK OF MAGNESIA 400 MG/5 ML 30 ML UDC PO PRN (09:30)
[2020-09-14] MEDS ORDERED: ACETAMINOPHEN 500 MG TAB (TYLENOL) PO PRN (09:30)
[2020-09-14] MEDS ORDERED: ONDANSETRON 4 MG/2 ML (SDV) Z0FRAN IV PRN (09:30)
[2020-09-14] MEDS ORDERED: LORazepam INJ 2 MG/ML (ATIVAN) VIAL IVP PRN (09:30)
[2020-09-14] MEDS ORDERED: hydrOXYzine (ATARAX) 10 MG TAB PO PRN (09:30)
[2020-09-14] MEDS ORDERED: RT-ALBUTEROL INHALER HFA (VENTOLIN HFA) 18 GM IH PRN (09:30)
[2020-09-14] MEDS ORDERED: PEMETREXED DISODIUM 1,000 MG in NS (IVPB) CANCER CENTER 100 ML IV ONE (10:09)
[2020-09-14] MEDS ORDERED: PEMBROLIZUMAB 200 MG in NS (IVPB) CANCER CENTER 50 ML IV ONE (10:09)
[2020-09-14] MEDS ORDERED: FOSAPREPITANT (CANCER CENTER) 150 MG in NS (IVPB) CANCER CENTER ONLY 150 ML IV ONE (10:09)
[2020-09-14] MEDS ORDERED: CARBOplatin 420 MG in D5W 50 ML IV(CANCER CTR) 50 ML IV ONE (10:09)
[2020-09-14] MEDS ORDERED: NS IV 1000 ML (CANCER CTR) 1,000 ML IV ONE (10:09)
--- NOTE | 2020-09-14 10:20 | Occupational Therapy Eval ---
OT Evaluation-General/PLF Medical Diagnosis Admission Date Sep 14, 2020 at 09:17 Medical Diagnosis: PE with malignant lung mass Onset Date: Sep 14, 2020 Therapy Diagnosis Therapy Diagnosis: Decreased ADL status Height/Weight Height (Feet): 5 Height (Inches): 9.00 Weight (Pounds): 200 Weight (Ounces): 0.0 Precautions Precautions/Isolations: Standard Precautions Referral Physician: Ariana Referral Reason: Activity Tolerance, Self Care, Evaluation/Treatment, Strengthening/ROM Medical History Pertinent Medical History: HTN Additional Medical History HTN, lung ca Current History Pt admits with SOA to ER. Pt admits with L PE with malignant lung mass (h/o lung ca 20 years prior). Reviewed History: Yes Social History Home: Single Level Current Living Status: Spouse (and sister in law.) Entry Into Home: Stairs With Railing Steps Into Home: 2 Pt lives with who has Alzheimer's, ELAINE assists with IADLs/ 's care ADL-Prior Level of Function SCALE: Activities may be completed with or without assistive devices. 1-Khemgvmbjx-nvqxuin completes the activity by him/herself with no assistance from a helper. 5-Set-up or Clean-up Assistance-helper sets up or cleans up; patient completes activity. [place] assists only prior to or following the activity. 4-Supervision or Touching Assistance-helper provides verbal cues and/or touching/steadying and/or contact guard assistance as patient completes activity. Assistance may be provided throughout the activity or intermittently. 3-Partial/Moderate Assistance-helper does LESS THAN HALF the effort. [place] lifts, holds or supports trunk or limbs, but provides less than half the effort. 2-Substantial/Maximal Assistance-helper does MORE THAN HALF the effort. [place] lifts or holds trunk or limbs and provides more than half the effort. 1-Olihyuamg-eduoiq does ALL the effort. Patient does none of the effort to complete the activity. Or, the assistance of 2 or more helpers is required for the patient to complete the activity. If activity was not attempted, code reason: 7-Patient Refused. 9-Not Applicable-not attempted and the patient did not perform the activity before the current illness, exacerbation or injury. 10-Not Attempted due to Environmental Limitations-(lack of equipment, weather restraints, etc.). 88-Not Attempted due to Medical Conditions or Safety Concerns. ADL PLOF Comments Pt states IND without AD. Handicap accessible shower/ sc/ gbs/ tall toilet. Self Care: Independent Functional Cognition: Independent DME/Equipment: Bath Chair, Grab Bars, Shower, Tall Toilet DME/Equipment Comments walker present Occupation: retired [employer] Self: Yes OT Current Status Subjective Pt AxO, upright in chair. Agrees to OT, denies pain. Mental Status/Objective Patient Orientation: Person, Place, Situation Attachments: Oxygen (4L) Current Glasses/Contacts: Yes Hearing Aids: No Dentures/Partials: No Hand Dominance: Right Upper Extremity ROM WFL BUE Upper Extremity Coordination WFL BUE Upper Extremity Sensation WFL BUE Upper Extremity Strength WFL BUE Edema: none noted. ADL-Treatment Eating (QC): 6 Oral Hygiene (QC): 6 (while seated per clinical judgment. ) Shower/Bathe Self (QC): 4 (SUP/ SBA in stance per clinical judgment. ) Upper Body Dressing (QC): 5 (s/u- in chair. CGA in stance (slight LOB, self corrects)) Lower Body Dressing (QC): 4 (CGA) On/Off Footwear (QC): 6 (IND EOB) Toileting Hygiene (QC): 4 (SUP) Other Treatments Pt educated on OT role and SWB status. Pt denies ADLs at this time, stating he typically showers at night but is able to do with SUP/ s/u. Pt states able to care for self, though just feels weak. Pt completes sit to stand with SBA, completes shirt doff/ donning and behind the back donning in stance, slight LOB. Pt sits EOB, is educated on ther ex while sitting with demonstration with red th eraband. Pt completes MMT/ ROM WFL. Pt then stands to complete 10 reps bilaterally of the following ex (02 monitored intermittently and breaks taken between each set): shoulder scaption, back flies, tricep, bicep, and ext shoulder rotation. Pt's 02 maintains in 90%s though HR increases to 130 with increased ex. Pt rests, HR declines to 110s. Pt educated to continue these in chair, resting for breath breaks. Pt denies needs, call light in reach, returns to recliner with chair alarm on. Education OT Patient Education: Correct positioning, Exercise program, Home exercise program, Progress toward Goal/Update tx plan, Purpose of tx/functional activities, Safety issues, Transfer techniques Teaching Recipient: Patient Teaching Methods: Demonstration, Handout, Discussion Response to Teaching: Verbalize Understanding, Return Demonstration, Reinforcement Needed OT Jail Goals Jail Goals Time Frame: Sep 21, 2020 Eating (QC): 6 Oral Hygiene (QC): 6 Toileting Hygiene (QC): 6 Shower/Bathe Self (QC): 6 Upper Body Dressing (QC): 6 Lower Body Dressing (QC): 6 On/Off Footwear (QC): 6 Additional Goals: 1-Demonstrate ADL Tasks, 2-Verbalize Understanding, 3- ImproveStrength/[place] 1=Demonstrate adherence to instructed precautions during ADL tasks. 2=Patient will verbalize/demonstrate understanding of assistive devices/modifications for ADL. 3=Patient will improve strength/tolerance for activity to enable patient to perform ADL's. OT Education/Plan Problem List/Assessment Assessment: Decreased Activ Tolerance, Decreased UE Strength, Dependent Transfers, Impaired Funct Balance, Impaired I ADL's, Impaired Self-Care Skills Discharge Recommendations Plan/Recommendations: Continue POC Therapy Discharge Recommendati: Home & Family, Post Acute OT Treatment Plan/Plan of Care Treatment,Training & Education: Yes Patient would benefit from OT for education, treatment and training to promote independence in ADL's, mobility, safety and/or upper extremity function for ADL's. Plan of Care: ADL Retraining, Concurrent Therapy, Functional Mobility, UE Funct Exercise/Act Treatment Duration: Sep 21, 2020 Frequency: 5 times per week Estimated Hrs Per Day: .25 hour per day Agreement: Yes Rehab Potential: Fair Time/GCodes Start Time: 09:40 Stop Time: 10:07 Total Time Billed (hr/min): 27 Billed Treatment Time 1, EVM (10), EX (17)= 27 FREDERIC ALICEA OTR Sep 14, 2020 10:20
[2020-09-14] MEDS: BENZONATATE 100 MG (TESSALON) CAPSULE PO SCH ×2 (13:29→20:15)
--- NOTE | 2020-09-14 14:06 | Physical Therapy Evaluation ---
PT Evaluation-General Medical Diagnosis Admission Date Sep 14, 2020 at 09:17 Medical Diagnosis: PE with malignant lung mass Onset Date: Sep 14, 2020 Therapy Diagnosis Therapy Diagnosis: generalized weakness/debility Height/Weight Height (Feet): 5 Height (Inches): 9.00 Weight (Pounds): 200 Weight (Ounces): 0.0 Precautions Precautions/Isolations: Fall Prevention, Standard Precautions Referral Physician: Ariana Reason for Referral: Evaluation/Treatment Medical History Pertinent Medical History: HTN Current History SWB status Reviewed History: Yes Social History Home: Single Level Current Living Status: Spouse (and sister in law.) Entry Into Home: Stairs With Railing PT Steps Into Home: 2 Prior Prior Level of Function SCALE: Activities may be completed with or without assistive devices. 0-Hryibbzfet-zfjlfel completes the activity by him/herself with no assistance f rom a helper. 5-Set-up or Clean-up Assistance-helper sets up or cleans up; patient completes activity. [place] assists only prior to or following the activity. 4-Supervision or Touching Assistance-helper provides verbal cues and/or touching/steadying and/or contact guard assistance as patient completes activity. Assistance may be provided throughout the activity or intermittently. 3-Partial/Moderate Assistance-helper does LESS THAN HALF the effort. [place] lifts, holds or supports trunk or limbs, but provides less than half the effort. 2-Substantial/Maximal Assistance-helper does MORE THAN HALF the effort. [place] lifts or holds trunk or limbs and provides more than half the effort. 1-Coeffaopx-tancbw does ALL the effort. Patient does none of the effort to complete the activity. Or, the assistance of 2 or more helpers is required for the patient to complete the activity. If activity was not attempted, code reason: 7-Patient Refused. 9-Not Applicable-not attempted and the patient did not perform the activity before the current illness, exacerbation or injury. 10-Not Attempted due to Environmental Limitations-(lack of equipment, weather restraints, etc.). 88-Not Attempted due to Medical Conditions or Safety Concerns. Bed Mobility: 6 Transfers (B,C,W/C): 6 Gait: 6 Stairs: 6 Indoor Mobility (Ambulation): Independent Stairs: Independent PT Evaluation-Current Subjective Patient is very agreeable to participate with skilled therapy. Objective Patient Orientation: Person, Time, Situation Attachments: Oxygen (4L NC) ROM/Strength ROM Lower Extremities bilateral LE WFL Strength Lower Extremities 4/5 grossly bilateral LE Integumentary/Posture Integumentary refer to nursing notes Bowel Incontinence: No Bladder Incontinence: No Posture WFL Neuromuscular (Tone, Coordination, Reflexes) grossly intact Sensory Vision: Wears Glasses Hearing: Functional Hand Dominance: Right Transfers Roll Left & Right (QC): 5 Sit to Lying (QC): 5 Lying to Sitting/Side of Bed(Q: 5 Sit to Stand (QC): 4 Chair/Dgk-gr-Exvor Xfer(QC): 4 Toilet Transfer (QC): 4 Car Transfer (QC): 4 Gait Does the Patient Walk?: Yes Mode of Locomotion: Walk Anticipated Mode of Locomotion: Walk Walk 10 feet (QC): 4 Walk 50 ft with 2 Turns(QC): 4 Walk 150 ft (QC): 4 Walking 10ft/uneven surface-QC: 4 Gait Assistive Device: FWW Comments/Gait Description SBA with all for safety Wheelchair Training Does the Pt Use a Wheelchair?: No Wheel 50 ft with 2 turns (QC): 9 Wheel 150 ft (QC): 9 Stairs #of Steps: 2 1 Step (curb) (QC): 4 4 Steps (QC): 88 12 Steps (QC): 9 Balance Sitting Static: Normal Sitting Dynamic: Normal Standing Static: Normal Standing Dynamic: Normal Picking up an Object (QC): 5 (seated position) Treatment Ambulate with FWW 500' SBA with FWW with Normal balance. Patient demonstrates fair endurance with functional mobility/activity requiring 3-4 standing recovery periods due to SOA with quick recovery. Assessment/Needs 69 y.o. male, will benefit from skilled PT to address functional strength and mobility to improve current LOF to safely return to home with family at maximum LOF. Rehab Potential: Fair PT Benefits Administrator Goals Long-Term Goals PT Long-Term Goals Time Frame: Oct 02, 2020 Roll Left & Right (QC): 5 Sit to Lying (QC): 5 Lying-Sitting on Side/Bed(QC): 5 Sit to Stand (QC): 5 Chair/Qlo-uo-Njzhe Xfer(QC): 5 Toilet Transfer (QC): 5 Car Transfer (QC): 5 Does the Patient Walk: Yes Walk 10 feet (QC): 5 Walk 50ft with 2 Turns (QC): 5 Walk 150 ft (QC): 5 Walking 10ft on Uneven Surface: 5 1 Step (curb) (QC): 5 4 Steps (QC): 5 12 Steps (QC): 9 Picking up an Object (QC): 5 Wheel 50 feet with 2 turns (QC: 9 Wheel 150 feet: 9 PT Plan Problem List Problem List: Activity Tolerance, Safety Treatment/Plan Treatment Plan: Continue Plan of Care Treatment Plan: Bed Mobility, Education, Functional Activity Dedrick, Functional Strength, Gait, Safety, Therapeutic Exercise, Transfers Treatment Duration: Oct 02, 2020 Frequency: 6 times per week Estimated Hrs Per Day: .25 hour per day (to .5 hour) Patient and/or Family Agrees t: Yes Discharge Recommendations Therapy Discharge Recommendati: Home & Family Time/GCodes Time In: 1250 Time Out: 1313 Total Billed Treatment Time: 23 Total Billed Treatment 1 visit EVModC 8 min FA 15 min ALISON HAMPTON PT Sep 14, 2020 14:06
[2020-09-14] MEDS: RT-ALBUTEROL INHALER HFA (VENTOLIN HFA) 18 GM IH SCH ×3 (14:31→21:22)
--- NOTE | 2020-09-14 17:18 | Progress Note ---
Standard Progress Note Progress Notes/Assess & Plan Date Seen by a Provider: Sep 14, 2020 Time Seen by a Provider: 17:12 Progress/Assessment & Plan Ms. 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 He has remote history of limited stage small cell lung cancer of the left upper lobe which was treated with combined chemoradiation followed by prophylactic cranial radiation approximately 18 to 19 years ago. He was admitted to the hospital with confusion and increasing weakness with work-up showing evidence of progression and increasing pleural effusion. He underwent attempted thoracentesis and had a port placed for administration of chemotherapy. He was started on chemotherapy with carboplatin, Alimta and Keytruda regimen today and tolerated it well. He is improving and the confusion has almost resolved. He continues to be weak and is requiring oxygen cluwml-ubm-hyloc. He is working with physical and Occupational Therapy and is ambulating better. He denied any side effects from the chemotherapy so far. He is on dexamethasone 4 mg twice daily as premedication and we will continue this tomorrow and DC after that. His only complaint today was that his and kcfnxp-ho-ftw cannot visit him together as per hospital policies. His has significant dementia and is unable to visit by herself. Lastly nursing staff to look into this. Continue PT/OT and strengthening. SARAN MERRITT Sep 14, 2020 17:18
[2020-09-14 18:00] VITALS: BP 135/80
[2020-09-14] MEDS: CARVEDILOL 3.125 MG (COREG) TABLET PO SCH (20:15)
[2020-09-14] MEDS: MELATONIN 3 MG TABLET PO PRN (20:15)
[2020-09-14] MEDS: ADVAIR HFA 115/21 MCG INHALER 8 GM IH SCH (21:22)
[2020-09-15 01:37] VITALS: BP 135/80
[2020-09-15] MEDS: RT-ALBUTEROL INHALER HFA (VENTOLIN HFA) 18 GM IH SCH ×6 (02:17→23:00)
[2020-09-15 05:56] VITALS: BP 149/82
[2020-09-15 06:25] LABS: HEMOGLOBIN 11.7 g/dL (13.3-17.7); MEAN PLATELET VOLUME 8.2 fL (9.0-12.2); WHITE BLOOD COUNT 16.3 10^3/uL (4.3-11.0)
[2020-09-15 06:26] LABS: ALBUMIN 3.7 GM/DL (3.2-4.5); CHLORIDE 101 MMOL/L (98-107); POTASSIUM 4.4 MMOL/L (3.6-5.0); SODIUM 135 MMOL/L (135-145)
[2020-09-15 06:28] LABS: CALCIUM 9.3 MG/DL (8.5-10.1)
[2020-09-15 06:29] LABS: GLUCOSE 133 MG/DL (70-105); TOTAL PROTEIN 7.1 GM/DL (6.4-8.2)
[2020-09-15 06:30] LABS: CARBON DIOXIDE 22 MMOL/L (21-32)
[2020-09-15 06:31] LABS: BILIRUBIN,TOTAL 0.5 MG/DL (0.1-1.0)
[2020-09-15 06:32] LABS: ALKALINE PHOSPHATASE 71 U/L (40-136); CREATININE SERUM 0.96 MG/DL (0.60-1.30); GFR ESTIMATED > 60
[2020-09-15 06:33] LABS: BUN/CREATININE RATIO 28
[2020-09-15 06:35] LABS: ALANINE AMINOTRANSFERASE 26 U/L (0-55)
[2020-09-15] MEDS: ADVAIR HFA 115/21 MCG INHALER 8 GM IH SCH ×2 (07:40→19:21)
--- NOTE | 2020-09-15 08:35 | Progress Note ---
Subjective Subjective Date Seen by Provider: Sep 15, 2020 Time Seen by Provider: 08:30 PT REPORTS THAT HE IS FEELING MUCH BETTER OVER THE PAST FEW DAYS. HE DENIES CHEST PAIN, ABDOMINAL PAIN, NAUSEA, HAD BOWEL MOVEMENT TODAY. HE IS ANXIOUS TO BE DISCHARGED TO HOME TOMORROW. Review of Systems General: No Chills; Fatigue HEENT: No Head Aches Pulmonary: Dyspnea, Cough Cardiovascular: No: Chest Pain Gastrointestinal: No: Nausea, Abdominal Pain Genitourinary: No Dysuria Neurological: Weakness; No: Confusion All Other Systems Reviewed All Other Systems Reviewed: Yes Objective Exam Vital Signs Vital Signs - First Documented 09/14/20 09/14/20 14:32 18:00 Temp 36.5 Pulse 84 Resp 20 B/P (MAP) 135/80 (98) Pulse Ox 91 O2 Delivery Nasal Cannula O2 Flow Rate 3.50 Capillary Refill : General Appearance: No Apparent Distress, WD/WN HEENT: PERRL/EOMI, Pharynx Normal Neck: Full Range of Motion, Supple Respiratory: Chest Non Tender, Decreased Breath Sounds (LEFT MID-LUNG TO BASE, RIGHT LUNG CTA) Cardiovascular: Regular Rate, Rhythm, Normal Peripheral Pulses Gastrointestinal: Non Tender, Soft Rectal: Deferred Extremity: Normal Capillary Refill, No Calf Tenderness, No Pedal Edema Neurologic/Psychiatric: Alert, Oriented x3, No Motor/Sensory Deficits, Normal 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, 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 Norm as Tested Skin: Warm/Dry Lymphatic: No Adenopathy Results Lab Laboratory Tests 09/15/20 06:08: White Blood Count 16.3H, Red Blood Count 3.95L, Hemoglobin 11.7L, Hematocrit 35L , Mean Corpuscular Volume 89, Mean Corpuscular Hemoglobin 30, Mean Corpuscular Hemoglobin Concent 33, Red Cell Distribution Width 12.2, Platelet Count 533H, Mean Platelet Volume 8.2L, Sodium Level 135, Potassium Level 4.4, Chloride Level 101, Carbon Dioxide Level 22, Anion Gap 12, Blood Urea Nitrogen 27H, Creatinine 0.96, Estimat Glomerular Filtration Rate > 60, BUN/Creatinine Ratio 28, Glucose Level 133H, Calcium Level 9.3, Corrected Calcium 9.5, Total Bilirubin 0.5, Aspartate Amino Transf (AST/SGOT) 17, Alanine Aminotransferase (ALT/SGPT) 26, Alkaline Phosphatase 71, Total Protein 7.1, Albumin 3.7 Assessment/Plan Assessment/Plan Admission Dx LEFT PLEURAL EFFUSION ADENOCARCINOMA LEFT LUNG PATHOLOGY PENDING HYPERTENSION HYPONATREMIA PNEUMONIA MALPOSITION OF PORT TIP WORSENING METASTATIC DISEASE WITH NEW LIVER LESIONS AND POSSIBLE THROMBOSIS OF SUBCLAVIAN Assessment and Plan LEFT PLEURAL EFFUSION ADENOCARCINOMA LEFT LUNG PATHOLOGY PENDING HYPERTENSION HYPONATREMIA PNEUMONIA MALPOSITION OF PORT TIP WORSENING METASTATIC DISEASE WITH NEW LIVER LESIONS AND POSSIBLE THROMBOSIS OF SUBCLAVIAN LEFT PLEURAL EFFUSION WITH KNOWN ADENOCARCINOMA LEFT LUNG PATHOLOGY PENDING - STATUS POST THORACENTESIS WITH 2+ LITERS DRAINED -METASTATIC ADENO FROM FLUID PATHOLOGY - WAITING ON SPECIAL STAINS FROM PREVIOUS PATHOLOGY - PHONE CALL PLACED TO LAB - WAITING ON PATHOLOGY STILL - MAY NOT BE ENOUGH SPECIMEN PER LAB REPORT. - CONSULT TO ONCOLOGY - PORT PLACEMENT 09/09/2020 WITH NEED FOR REPLACEMENT VERSUS REPOSITIONING OF PORT TIP. - WE DO NOT HAVE INTERVENTIONAL RADIOLOGIST ABLE TO REPOSITION TIP OF PORT, AND DR. FRANCO HAS TO TAKE PT BACK TO SURGERY TO ATTEMPT REPOSITIONING VERSUS REPLACEMENT OF PORT. - PT REMAINS FULL CODE. HYPERTENSION - RESUMED HOME MEDICATIONS. HYPONATREMIA - IMPROVED SODIUM ON LABS - STABILIZATION - MONITOR. OBSTRUCTIVE PNEUMONIA - POST ANTIBIOTICS CT CHEST WO IMPRESSION: 1. No significant change in the left hilar mass and mediastinal and supraclavicular lymphadenopathy. 2. Left pleural effusion now demonstrates internal debris and soft tissue nodularity likely representing a malignant effusion. This is new from prior exam. 3. New liver lesions are seen in segment V and possibly in segment II. 4. Stable postobstructive collapse of the left upper lobe and partial collapse of the left lower lobe. 5. New areas of groundglass dependently in the right lung which may represent aspiration pneumonitis or viral infection. (1) Pleural effusion on left (2) Hyponatremia (3) Adenocarcinoma, lung (4) Small cell lung cancer (5) HTN (hypertension) ESTHER VALDIVIA MD Sep 15, 2020 08:35
[2020-09-15] MEDS: FOLIC ACID 1 MG TAB PO SCH (08:44)
[2020-09-15] MEDS: BENZONATATE 100 MG (TESSALON) CAPSULE PO SCH ×3 (08:44→20:18)
[2020-09-15] MEDS: PANTOPRAZOLE 40 MG (PROTONIX) TAB PO SCH (08:45)
[2020-09-15] MEDS: CARVEDILOL 3.125 MG (COREG) TABLET PO SCH ×2 (08:45→20:18)
--- NOTE | 2020-09-15 08:59 | Physical Therapy Daily Note ---
PT Daily Note-Current Subjective Patient in bed pre tx, agrees to PT, has no complaints of pain but needs to use the restroom he ambulates into the restroom without a rolling walker with SBA, he does have some unsteadiness but no LOB, uses the restroom without assist. Appearance Patient in recliner post tx with nurse call, phone, tray, all needs met, family in the room. Mental Status Patient Orientation: Person, Place, Situation Attachments: Oxygen Transfers SCALE: Activities may be completed with or without assistive devices. 1-Gbpwttvcea-iprbbwk completes the activity by him/herself with no assistance from a helper. 5-Set-up or Clean-up Assistance-helper sets up or cleans up; patient completes activity. [place] assists only prior to or following the activity. 4-Supervision or Touching Assistance-helper provides verbal cues and/or touching/steadying and/or contact guard assistance as patient completes activity. Assistance may be provided throughout the activity or intermittently. 3-Partial/Moderate Assistance-helper does LESS THAN HALF the effort. [place] lifts, holds or supports trunk or limbs, but provides less than half the effort. 2-Substantial/Maximal Assistance-helper does MORE THAN HALF the effort. [place] lifts or holds trunk or limbs and provides more than half the effort. 7-Uzhjtepbm-dijaen does ALL the effort. Patient does none of the effort to co mplete the activity. Or, the assistance of 2 or more helpers is required for the patient to complete the activity. If activity was not attempted, code reason: 7-Patient Refused. 9-Not Applicable-not attempted and the patient did not perform the activity before the current illness, exacerbation or injury. 10-Not Attempted due to Environmental Limitations-(lack of equipment, weather restraints, etc.). 88-Not Attempted due to Medical Conditions or Safety Concerns. Roll Left & Right (QC): 6 Lying to Sitting/Side of Bed(Q: 6 Sit to Stand (QC): 4 Chair/Ysi-ch-Mkfqb Xfer(QC): 4 SBA Gait Training Distance: 500' Walk 10 feet (QC): 4 Walk 50 ft with 2 Turns(QC): 4 Walk 150 ft (QC): 4 Gait Persons Needed: 1 Gait Assistive Device: FWW SBA, cues for purse lip breathing, SOB after ambulation but recovers quickly Exercises Seated Therapy Exercises: Ankle pumps, Long arc quads Seated Reps: 20 Treatments toileting, ambulation, LE exercise Assessment Current Status: Fair Progress improving endurance PT Home Health Clinical Supervisor Goals Skilled Nursing Goals PT Skilled Nursing Goals Time Frame: Oct 02, 2020 Roll Left & Right (QC): 5 Sit to Lying (QC): 5 Lying-Sitting on Side/Bed(QC): 5 Sit to Stand (QC): 5 Chair/Ipl-ug-Jmptr Xfer(QC): 5 Toilet Transfer (QC): 5 Car Transfer (QC): 5 Does the Patient Walk: Yes Walk 10 feet (QC): 5 Walk 50ft with 2 Turns (QC): 5 Walk 150 ft (QC): 5 Walking 10ft on Uneven Surface: 5 1 Step (curb) (QC): 5 4 Steps (QC): 5 12 Steps (QC): 9 Picking up an Object (QC): 5 Wheel 50 feet with 2 turns (QC: 9 Wheel 150 feet: 9 PT Plan Problem List Problem List: Activity Tolerance, Functional Strength, Safety, Balance, Gait, Transfer Treatment/Plan Treatment Plan: Continue Plan of Care Treatment Plan: Bed Mobility, Education, Functional Activity [place], Functional Strength, Gait, Safety, Therapeutic Exercise, Transfers Treatment Duration: Oct 02, 2020 Frequency: 6 times per week Estimated Hrs Per Day: .25 hour per day (to .5 hour) Patient and/or Family Agrees t: Yes Safety Risks/Education Patient Education: Gait Training, Transfer Techniques, Correct Positioning, Safety Issues Teaching Recipient: Patient Teaching Methods: Demonstration, Discussion Response to Teaching: Reinforcement Needed Time/GCodes Time In: 822 Time Out: 837 Total Billed Treatment Time: 15 Total Billed Treatment 1 visit GT 15ADAM GONZALES PT Sep 15, 2020 08:59
--- NOTE | 2020-09-15 09:09 | Physical Therapy Daily Note ---
PT Daily Note-Current Subjective Patient in bed pre tx, agrees to PT, has no complaints of pain but needs to use the restroom he ambulates into the restroom without a rolling walker with SBA, he does have some unsteadiness but no LOB, uses the restroom without assist. Appearance Patient in recliner post tx with nurse call, phone, tray, all needs met, family in the room. Mental Status Patient Orientation: Person, Place, Situation Attachments: Oxygen Transfers SCALE: Activities may be completed with or without assistive devices. 1-Bjzxqhmarq-eypnezs completes the activity by him/herself with no assistance from a helper. 5-Set-up or Clean-up Assistance-helper sets up or cleans up; patient completes activity. [place] assists only prior to or following the activity. 4-Supervision or Touching Assistance-helper provides verbal cues and/or touching/steadying and/or contact guard assistance as patient completes activity. Assistance may be provided throughout the activity or intermittently. 3-Partial/Moderate Assistance-helper does LESS THAN HALF the effort. [place] lifts, holds or supports trunk or limbs, but provides less than half the effort. 2-Substantial/Maximal Assistance-helper does MORE THAN HALF the effort. [place] lifts or holds trunk or limbs and provides more than half the effort. 2-Bpipwvpuy-cmgqto does ALL the effort. Patient does none of the effort to co mplete the activity. Or, the assistance of 2 or more helpers is required for the patient to complete the activity. If activity was not attempted, code reason: 7-Patient Refused. 9-Not Applicable-not attempted and the patient did not perform the activity before the current illness, exacerbation or injury. 10-Not Attempted due to Environmental Limitations-(lack of equipment, weather restraints, etc.). 88-Not Attempted due to Medical Conditions or Safety Concerns. Roll Left & Right (QC): 6 Sit to Lying (QC): 6 Lying to Sitting/Side of Bed(Q: 4 Sit to Stand (QC): 4 SBA Gait Training Distance: 500' Walk 10 feet (QC): 4 Walk 50 ft with 2 Turns(QC): 4 Walk 150 ft (QC): 4 Gait Persons Needed: 1 Gait Assistive Device: FWW SBA, cues for purse lip breathing, SOB after ambulation but recovers quickly Exercises Seated Therapy Exercises: Ankle pumps, Long arc quads Seated Reps: 20 Treatments toileting, ambulation, LE exercise Assessment Current Status: Fair Progress improving endurance PT Ground Support Equipment Assembler Goals Long-Term Goals PT Ground Support Equipment Assembler Goals Time Frame: Oct 02, 2020 Roll Left & Right (QC): 5 Sit to Lying (QC): 5 Lying-Sitting on Side/Bed(QC): 5 Sit to Stand (QC): 5 Chair/Pwk-bo-Inklc Xfer(QC): 5 Toilet Transfer (QC): 5 Car Transfer (QC): 5 Does the Patient Walk: Yes Walk 10 feet (QC): 5 Walk 50ft with 2 Turns (QC): 5 Walk 150 ft (QC): 5 Walking 10ft on Uneven Surface: 5 1 Step (curb) (QC): 5 4 Steps (QC): 5 12 Steps (QC): 9 Picking up an Object (QC): 5 Wheel 50 feet with 2 turns (QC: 9 Wheel 150 feet: 9 PT Plan Problem List Problem List: Activity Tolerance, Functional Strength, Safety, Balance, Gait, Transfer Treatment/Plan Treatment Plan: Continue Plan of Care Treatment Plan: Bed Mobility, Education, Functional Activity Ded[place], Functional Strength, Gait, Safety, Therapeutic Exercise, Transfers Treatment Duration: Oct 02, 2020 Frequency: 6 times per week Estimated Hrs Per Day: .25 hour per day (to .5 hour) Patient and/or Family Agrees t: Yes Safety Risks/Education Patient Education: Gait Training, Transfer Techniques, Correct Positioning, Safety Issues Teaching Recipient: Patient Teaching Methods: Demonstration, Discussion Response to Teaching: Reinforcement Needed Time/GCodes Time In: 822 Time Out: 837 Total Billed Treatment Time: 15 Total Billed Treatment 1 visit GT 15' ADAM GELLER PT Sep 15, 2020 09:09
--- NOTE | 2020-09-15 10:30 | Occupational Ther Daily Note ---
OT Current Status-Daily Note Subjective Pt AxO. and sister in law just left room. Pt agrees to OT tx, denies showering, though agrees to oral care/ face washing and exercise. Mental Status/Objective Patient Orientation: Person, Place, Situation Attachments: Oxygen (4L) ADL-Treatment Therapy Code Descriptions/Definitions Functional Lane Measure: 0=Not Assessed/NA 4=Minimal Assistance 1=Total Assistance 5=Supervision or Setup 2=Maximal Assistance 6=Modified Lane 3=Moderate Assistance 7=Complete IndependenceSCALE: Activities may be completed with or without assistive devices. 8-Tzlysrindy-paetdsr completes the activity by him/herself with no assistance from a helper. 5-Set-up or Clean-up Assistance-helper sets up or cleans up; patient completes activity. [place] assists only prior to or following the activity. 4-Supervision or Touching Assistance-helper provides verbal cues and/or touching/steadying and/or contact guard assistance as patient completes activity. Assistance may be provided throughout the activity or intermittently. 3-Partial/Moderate Assistance-helper does LESS THAN HALF the effort. [place] lifts, holds or supports trunk or limbs, but provides less than half the effort. 2-Substantial/Maximal Assistance-helper does MORE THAN HALF the effort. [place] lifts or holds trunk or limbs and provides more than half the effort. 5-Sjsplouue-srfqtq does ALL the effort. Patient does none of the effort to complete the activity. Or, the assistance of 2 or more helpers is required for the patient to complete the activity. If activity was not attempted, code reason: 7-Patient Refused. 9-Not Applicable-not attempted and the patient did not perform the activity before the current illness, exacerbation or injury. 10-Not Attempted due to Environmental Limitations-(lack of equipment, weather restraints, etc.). 88-Not Attempted due to Medical Conditions or Safety Concerns. Eating (QC): 6 Oral Hygiene (QC): 4 (SUP during standing. ) Shower/Bathe Self (QC): 7 Other Treatment Pt completes feeding with IND. Pt completes sit to stand with SBA, ambulates without walker to sink ( CGA), completes oral care and face hygiene with SUP, cues for breathing through nose. Pt is encouraged to utilize walker going to/ from, uses walker to stand at recliner. Rest break with 02 at 90%. Pt completes UE theraband in stance (02 monitored throughout, maintains 89- low 90's%). Pt completes 15-20 reps of the following exercises in stance: back pulls, bicep curls, shoulder flexion. Pt states slightly SOB, 02 at 90%. Pt left in chair with all needs met, call light in reach, nursing education specialist present. Education OT Patient Education: Correct positioning, Exercise program, Home exercise program, Progress toward Goal/Update tx plan, Safety issues Teaching Recipient: Patient Teaching Methods: Demonstration, Discussion Response to Teaching: Verbalize Understanding, Return Demonstration, Reinforcement Needed OT Intermediate Goals Intermediate Goals Time Frame: Sep 21, 2020 Eating (QC): 6 Oral Hygiene (QC): 6 Toileting Hygiene (QC): 6 Shower/Bathe Self (QC): 6 Upper Body Dressing (QC): 6 Lower Body Dressing (QC): 6 On/Off Footwear (QC): 6 Additional Goals: 1-Demonstrate ADL Tasks, 2-Verbalize Understanding, 3- ImproveStrength/[place] 1=Demonstrate adherence to instructed precautions during ADL tasks. 2=Patient will verbalize/demonstrate understanding of assistive devices/modifications for ADL. 3=Patient will improve strength/tolerance for activity to enable patient to perform ADL's. OT Education/Plan Problem List/Assessment Assessment: Decreased Activ Tolerance, Decreased UE Strength, Dependent Transfers, Impaired I ADL's, Impaired Self-Care Skills Discharge Recommendations Plan/Recommendations: Continue POC Therapy Discharge Recommendati: Home & Family Treatment Plan/Plan of Care Treatment,Training & Education: Yes Patient would benefit from OT for education, treatment and training to promote independence in ADL's, mobility, safety and/or upper extremity function for ADL's. Plan of Care: ADL Retraining, Concurrent Therapy, Functional Mobility, UE Funct Exercise/Act Treatment Duration: Sep 21, 2020 Frequency: 5 times per week Estimated Hrs Per Day: .25 hour per day Agreement: Yes Rehab Potential: Fair Time/GCodes Start Time: 09:51 Stop Time: 10:12 Total Time Billed (hr/min): 21 Billed Treatment Time 1, ADL (21) FREDERIC ALICEA OTR Sep 15, 2020 10:30
[2020-09-15 17:10] VITALS: BP 133/72
[2020-09-15] MEDS: MELATONIN 3 MG TABLET PO PRN (21:37)
[2020-09-16] MEDS: RT-ALBUTEROL INHALER HFA (VENTOLIN HFA) 18 GM IH SCH ×6 (02:42→21:37)
[2020-09-16 05:30] VITALS: BP 158/80
[2020-09-16] MEDS: ADVAIR HFA 115/21 MCG INHALER 8 GM IH SCH ×2 (06:56→18:39)
[2020-09-16] MEDS: PANTOPRAZOLE 40 MG (PROTONIX) TAB PO SCH (08:49)
[2020-09-16] MEDS: BENZONATATE 100 MG (TESSALON) CAPSULE PO SCH ×3 (08:49→19:42)
[2020-09-16] MEDS: FOLIC ACID 1 MG TAB PO SCH (08:49)
[2020-09-16] MEDS: CARVEDILOL 3.125 MG (COREG) TABLET PO SCH ×2 (08:49→19:42)
--- NOTE | 2020-09-16 10:12 | Occupational Ther Daily Note ---
OT Current Status-Daily Note Subjective Pt AxO, seen with and ELAINE present. Pt agrees to tx. Denies showering, stating he is able to "do it all," and denies toileting though states he will need to go soon. States he has already donned socks/ shoes with IND. and ELAINE consulted as far as home environment and concerns. ELAINE states concerns only with oxygen tubing hose, though both women will be home with pt upon d/c. Mental Status/Objective Patient Orientation: Person, Place, Situation Attachments: Oxygen (2L) ADL-Treatment Therapy Code Descriptions/Definitions Functional [place] Measure: 0=Not Assessed/NA 4=Minimal Assistance 1=Total Assistance 5=Supervision or Setup 2=Maximal Assistance 6=Modified [place] 3=Moderate Assistance 7=Complete IndependenceSCALE: Activities may be completed with or without assistive devices. 8-Camtmvesck-khesckm completes the activity by him/herself with no assistance from a helper. 5-Set-up or Clean-up Assistance-helper sets up or cleans up; patient completes activity. [place] assists only prior to or following the activity. 4-Supervision or Touching Assistance-helper provides verbal cues and/or touching/steadying and/or contact guard assistance as patient completes activity. Assistance may be provided throughout the activity or intermittently. 3-Partial/Moderate Assistance-helper does LESS THAN HALF the effort. [place] lifts, holds or supports trunk or limbs, but provides less than half the effort. 2-Substantial/Maximal Assistance-helper does MORE THAN HALF the effort. [place] lifts or holds trunk or limbs and provides more than half the effort. 9-Mnsiypnde-uayszu does ALL the effort. Patient does none of the effort to complete the activity. Or, the assistance of 2 or more helpers is required for the patient to complete the activity. If activity was not attempted, code reason: 7-Patient Refused. 9-Not Applicable-not attempted and the patient did not perform the activity before the current illness, exacerbation or injury. 10-Not Attempted due to Environmental Limitations-(lack of equipment, weather restraints, etc.). 88-Not Attempted due to Medical Conditions or Safety Concerns. Eating (QC): 6 Shower/Bathe Self (QC): 5 (per pt. ) On/Off Footwear: 6 (per pt) Other Treatment Pt completes sit to stand with SBA. Walker placed in front of pt with instruction to complete UE strengthening exercises/ standing balance/ fx activity tolerance task. pt completes 15 reps of bilateral exercises as follows: shoulder flexion, back pulls, elbow flexion (02 93% with 02 donned, per request this is doffed during last exercises with noted SOB and light headedness though 02 reads 93%, 02 donned and educated on importance based on sx). Pt's is instructed on adaptive ways of assisting pt with these tasks, return demonstrates with cues. Pt completes standing for ~2 min, marching in place with UE/ LE movement- one instance of LOB though able to self correct with CGA. Pt's 02 88% upon sit (02 is donned), recovers in seconds. Family states no concerns other than management of tubing. All needs met, call light in reach, pt in chair with family present. Education OT Patient Education: Correct positioning, Exercise program, Home exercise program, Instructions to caregiver, Purpose of tx/functional activities, Safety issues Teaching Recipient: Patient Teaching Methods: Demonstration, Discussion Response to Teaching: Verbalize Understanding, Return Demonstration, Reinforcement Needed OT Intermediate Goals Intermediate Goals Time Frame: Sep 21, 2020 Eating (QC): 6 Oral Hygiene (QC): 6 Toileting Hygiene (QC): 6 Shower/Bathe Self (QC): 6 Upper Body Dressing (QC): 6 Lower Body Dressing (QC): 6 On/Off Footwear (QC): 6 Additional Goals: 1-Demonstrate ADL Tasks, 2-Verbalize Understanding, 3- ImproveStrength/[place]rick 1=Demonstrate adherence to instructed precautions during ADL tasks. 2=Patient will verbalize/demonstrate understanding of assistive devices/modifications for ADL. 3=Patient will improve strength/tolerance for activity to enable patient to perform ADL's. OT Education/Plan Problem List/Assessment Assessment: Decreased Activ Tolerance, Decreased UE Strength, Impaired Funct Balance, Impaired I ADL's, Impaired Self-Care Skills Discharge Recommendations Plan/Recommendations: Continue POC Therapy Discharge Recommendati: Home & Family Treatment Plan/Plan of Care Treatment,Training & Education: Yes Patient would benefit from OT for education, treatment and training to promote independence in ADL's, mobility, safety and/or upper extremity function for ADL's. Plan of Care: ADL Retraining, Concurrent Therapy, Functional Mobility, UE Funct Exercise/Act Treatment Duration: Sep 21, 2020 Frequency: 5 times per week Estimated Hrs Per Day: .25 hour per day Agreement: Yes Rehab Potential: Fair Time/GCodes Start Time: 09:40 Stop Time: 10:05 Total Time Billed (hr/min): 25 Billed Treatment Time 1, EX 2 (25) FREDERIC ALICEA OTR Sep 16, 2020 10:12
--- NOTE | 2020-09-16 14:34 | Physical Therapy Daily Note ---
PT Daily Note-Current Subjective Patient reports he hope to go in the morning. Agrees to PT. Mental Status Patient Orientation: Normal For Age Attachments: Oxygen Transfers SCALE: Activities may be completed with or without assistive devices. 7-Vuufpxjlgv-iobztfu completes the activity by him/herself with no assistance from a helper. 5-Set-up or Clean-up Assistance-helper sets up or cleans up; patient completes activity. [place] assists only prior to or following the activity. 4-Supervision or Touching Assistance-helper provides verbal cues and/or touching/steadying and/or contact guard assistance as patient completes activity. Assistance may be provided throughout the activity or intermittently. 3-Partial/Moderate Assistance-helper does LESS THAN HALF the effort. [place] lifts, holds or supports trunk or limbs, but provides less than half the effort. 2-Substantial/Maximal Assistance-helper does MORE THAN HALF the effort. [place] lifts or holds trunk or limbs and provides more than half the effort. 0-Ljxyegkfu-ufvjhn does ALL the effort. Patient does none of the effort to complete the activity. Or, the assistance of 2 or more helpers is required for the patient to complete the activity. If activity was not attempted, code reason: 7-Patient Refused. 9-Not Applicable-not attempted and the patient did not perform the activity before the current illness, exacerbation or injury. 10-Not Attempted due to Environmental Limitations-(lack of equipment, weather restraints, etc.). 88-Not Attempted due to Medical Conditions or Safety Concerns. Roll Left & Right (QC): 6 Sit to Lying (QC): 6 Lying to Sitting/Side of Bed(Q: 6 Sit to Stand (QC): 5 Chair/Fza-bm-Ynium Xfer(QC): 5 Gait Training Does the Patient Walk?: Yes Distance: 1000' Walk 10 feet (QC): 5 Walk 50 ft with 2 Turns(QC): 5 Walk 150 ft (QC): 5 Gait Assistive Device: FWW safe and functional with no standing recovery period or SOA episodes. Balance Picking up an Object (QC): 5 (seated position) Exercises Seated Therapy Exercises: Ankle pumps, Long arc quads, Hip flexion Seated Reps: 15 Assessment Current Status: Excellent Progress Patient progressing with treatment plan. PT Net Architect Goals Net Architect Goals PT Net Architect Goals Time Frame: Oct 02, 2020 Roll Left & Right (QC): 5 (met 09/16/20) Sit to Lying (QC): 5 (met 09/16/20) Lying-Sitting on Side/Bed(QC): 5 (met 09/16/20) Sit to Stand (QC): 5 (met 09/16/20) Chair/Rwh-yj-Okrgh Xfer(QC): 5 (met 09/16/20) Toilet Transfer (QC): 5 Car Transfer (QC): 5 Does the Patient Walk: Yes Walk 10 feet (QC): 5 (met 09/16/20) Walk 50ft with 2 Turns (QC): 5 (met 09/16/20) Walk 150 ft (QC): 5 (met 09/16/20) Walking 10ft on Uneven Surface: 5 1 Step (curb) (QC): 5 4 Steps (QC): 5 12 Steps (QC): 9 Picking up an Object (QC): 5 (met 09/16/20) Wheel 50 feet with 2 turns (QC: 9 Wheel 150 feet: 9 PT Plan Treatment/Plan Treatment Plan: Continue Plan of Care Treatment Plan: Bed Mobility, Education, Functional Activity [place], Functional Strength, Gait, Safety, Therapeutic Exercise, Transfers Treatment Duration: Oct 02, 2020 Frequency: 6 times per week Estimated Hrs Per Day: .25 hour per day (to .5 hour) Patient and/or Family Agrees t: Yes Time/GCodes Time In: 1340 Time Out: 1355 Total Billed Treatment Time: 15 Total Billed Treatment 1 visit FA 15 min ALISON HAMPTON PT Sep 16, 2020 14:34
[2020-09-16 17:32] VITALS: BP 136/82
--- NOTE | 2020-09-16 19:21 | Progress Note ---
Subjective Subjective Date Seen by Provider: Sep 16, 2020 Time Seen by Provider: 18:40 PT REPORTS THAT HE IS FEELING MUCH BETTER OVER THE PAST FEW DAYS. HE DENIES CHEST PAIN. HE DENIES NAUSEA, ABDOMINAL PAIN. HE IS ANXIOUS TO BE DISCHARGED TO HOME SUNDAY Review of Systems General: No Chills; Fatigue HEENT: No Head Aches Pulmonary: Dyspnea, Cough Cardiovascular: No: Chest Pain Gastrointestinal: No: Nausea, Abdominal Pain Genitourinary: No Dysuria Neurological: Weakness; No: Confusion All Other Systems Reviewed All Other Systems Reviewed: Yes Objective Exam Vital Signs Vital Signs - First Documented 09/14/20 09/14/20 14:32 18:00 Temp 36.5 Pulse 84 Resp 20 B/P (MAP) 135/80 (98) Pulse Ox 91 O2 Delivery Nasal Cannula O2 Flow Rate 3.50 Capillary Refill : General Appearance: No Apparent Distress, WD/WN HEENT: PERRL/EOMI, Pharynx Normal Neck: Full Range of Motion, Supple Respiratory: Chest Non Tender, Decreased Breath Sounds (LEFT MID-LUNG TO BASE, RIGHT LUNG CTA) Cardiovascular: Regular Rate, Rhythm, Normal Peripheral Pulses Gastrointestinal: Non Tender, Soft Rectal: Deferred Extremity: Normal Capillary Refill, No Calf Tenderness, No Pedal Edema Neurologic/Psychiatric: Alert, Oriented x3, No Motor/Sensory Deficits, Normal 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, 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 Norm as Tested Skin: Warm/Dry Lymphatic: No Adenopathy Assessment/Plan Assessment/Plan Admission Dx LEFT PLEURAL EFFUSION ADENOCARCINOMA LEFT LUNG PATHOLOGY PENDING HYPERTENSION HYPONATREMIA PNEUMONIA MALPOSITION OF PORT TIP WORSENING METASTATIC DISEASE WITH NEW LIVER LESIONS AND POSSIBLE THROMBOSIS OF SUBCLAVIAN Assessment and Plan LEFT PLEURAL EFFUSION ADENOCARCINOMA LEFT LUNG PATHOLOGY PENDING HYPERTENSION HYPONATREMIA PNEUMONIA MALPOSITION OF PORT TIP WORSENING METASTATIC DISEASE WITH NEW LIVER LESIONS AND POSSIBLE THROMBOSIS OF SUBCLAVIAN LEFT PLEURAL EFFUSION WITH KNOWN ADENOCARCINOMA LEFT LUNG PATHOLOGY PENDING - STATUS POST THORACENTESIS WITH 2+ LITERS DRAINED -METASTATIC ADENO FROM FLUID PATHOLOGY - WAITING ON SPECIAL STAINS FROM PREVIOUS PATHOLOGY - PHONE CALL PLACED TO LAB - WAITING ON PATHOLOGY STILL - MAY NOT BE ENOUGH SPECIMEN PER LAB REPORT. - CONSULT TO ONCOLOGY - PORT PLACEMENT 09/09/2020 WITH NEED FOR REPLACEMENT VERSUS REPOSITIONING OF PORT TIP. - WE DO NOT HAVE INTERVENTIONAL RADIOLOGIST ABLE TO REPOSITION TIP OF PORT, AND DR. FRANCO HAS TO TAKE PT BACK TO SURGERY TO ATTEMPT REPOSITIONING V ERSUS REPLACEMENT OF PORT. - PT REMAINS FULL CODE. HYPERTENSION - RESUMED HOME MEDICATIONS. HYPONATREMIA - IMPROVED SODIUM ON LABS - STABILIZATION - MONITOR. OBSTRUCTIVE PNEUMONIA - POST ANTIBIOTICS CT CHEST WO IMPRESSION: 1. No significant change in the left hilar mass and mediastinal and supraclavicular lymphadenopathy. 2. Left pleural effusion now demonstrates internal debris and soft tissue nodularity likely representing a malignant effusion. This is new from prior exam. 3. New liver lesions are seen in segment V and possibly in segment II. 4. Stable postobstructive collapse of the left upper lobe and partial collapse of the left lower lobe. 5. New areas of groundglass dependently in the right lung which may represent aspiration pneumonitis or viral infection. (1) Pleural effusion on left (2) Hyponatremia (3) Adenocarcinoma, lung (4) Small cell lung cancer (5) HTN (hypertension) Admission Dx LEFT PLEURAL EFFUSION ADENOCARCINOMA LEFT LUNG PATHOLOGY PENDING HYPERTENSION HYPONATREMIA PNEUMONIA MALPOSITION OF PORT TIP WORSENING METASTATIC DISEASE WITH NEW LIVER LESIONS AND POSSIBLE THROMBOSIS OF SUBCLAVIAN Clinical Quality Measures Admission Status Admission Dx LEFT PLEURAL EFFUSION ADENOCARCINOMA LEFT LUNG PATHOLOGY PENDING HYPERTENSION HYPONATREMIA PNEUMONIA MALPOSITION OF PORT TIP WORSENING METASTATIC DISEASE WITH NEW LIVER LESIONS AND POSSIBLE THROMBOSIS OF SUBCLAVIAN ESTHER VALDIVIA MD Sep 16, 2020 19:21
[2020-09-17] MEDS: RT-ALBUTEROL INHALER HFA (VENTOLIN HFA) 18 GM IH SCH ×3 (02:10→10:52)
[2020-09-17 05:06] VITALS: BP 142/75
[2020-09-17] MEDS: ADVAIR HFA 115/21 MCG INHALER 8 GM IH SCH (07:04)
[2020-09-17] MEDS: FOLIC ACID 1 MG TAB PO SCH (08:13)
[2020-09-17] MEDS: BENZONATATE 100 MG (TESSALON) CAPSULE PO SCH (08:13)
[2020-09-17] MEDS: CARVEDILOL 3.125 MG (COREG) TABLET PO SCH (08:13)
[2020-09-17] MEDS: PANTOPRAZOLE 40 MG (PROTONIX) TAB PO SCH (08:13)
[2020-09-17] MEDS ORDERED: HYDR-3584 PO (09:16)
[2020-09-17] MEDS ORDERED: CARV3.122 PO (09:16)
[2020-09-17] MEDS ORDERED: BENZ100C18 PO (09:16)
[2020-09-17] MEDS ORDERED: ONDA4TAB11 PO (09:16)
[2020-09-17] MEDS ORDERED: ALBU18HF2 IH (09:16)
[2020-09-17] MEDS ORDERED: OXYC10TA7 PO (09:16)
[2020-09-17] MEDS ORDERED: FLUT12AE4 IH (09:16)
--- NOTE | 2020-09-17 09:18 | Discharge Inst-Simple/Standard ---
Discharge Inst-Standard Reconcile Patient Problems Problems Reviewed?: Yes Discharge Medications New, Converted or Re-Newed RX: Transmitted to Pharmacy (WITH CONTROLLED SUBSTANCE PRINTED) Patient Instructions/Follow Up Plan of Care/Instructions/FU: 1 WK [facility] KEEP APPT [facility] FOR [facility] ON SUNDAY WEATHER PERMITING Activity as Tolerated: No (DO NOT GO OUTSIDE IN COLD WEATHER TO WALK THE DOG) Discharge Diet: Regular Diet Health Concerns: LUNG CANCER, COPD, HYPERTENSION Return to The Hospital For: ANY CONCERN FOR WORSENING SYMPTOMS, LIFETHREATENING ILLNESS OR INJURY Medication List: Active Scripts Active Ondansetron Odt (Ondansetron) 4 Mg Tab.rapdis 4 Mg PO Q6H Advair Hfa 115-21 Mcg Inhaler (Fluticasone/Salmeterol) 12 Gm Hfa.aer.ad 2 Puff IH RTBID Tessalon Perles (Benzonatate) 100 Mg Capsule 100 Mg PO TID MUST SWALLOW WHOLE, DO NOT CRUSH OR CHEW THIS CAPSULE Hydroxyzine HCl 10 Mg Tablet 10 Mg PO TID PRN Ventolin Hfa (Albuterol Sulfate) 18 Gm Hfa.aer.ad 0 Gm IH RTQ4HR 1 PUFF EVERY 4 HOURS AND 1 PUFF EVERY 2 HOURS IF NEEDED FOR SHORTNESS OF BREATH Oxycodone HCl 10 Mg Tablet 10 Mg PO Q6H PRN TAKE IF NEEDED FOR PAIN FROM LUNG CANCER Carvedilol 3.125 Mg Tablet 3.125 Mg PO UD 1 TAB IN MORNING 2 TAB AT BEDTIME Reported Folic Acid 1 Mg Tablet 1 Mg PO DAILY Ocuvite Adult 50 Plus Softgel (C,E,Zinc,Copper 11/Xloos8p/Lut) 1 Each Capsule 1 Each PO DAILY Omeprazole 20 Mg Capsule.dr 20 Mg PO DAILY Lisinopril-Hctz 10-12.5 mg Tab (Lisinopril/Hydrochlorothiazide) 1 Each Tablet 1 Each PO DAILY Lovastatin 40 Mg Tablet 40 Mg PO DAILY My orders: Orders - ESTHER VALDIVIA MD Patient Visit (09/16/20 ) Functional Activities, Ea 15 (09/16/20 ) Ambulate W/O 02-Home O2 Qual (09/16/20 19:17) Attending Discharge Inpt/Inobs (09/17/20 09:07) ESTHER VALDIVIA MD Sep 17, 2020 09:18
--- NOTE | 2020-09-17 09:24 | Discharge Summary ---
Diagnosis/Chief Complaint Date of Admission Sep 14, 2020 at 09:17 Date of Discharge Discharge Date: Sep 17, 2020 Discharge Time: 1030 Admission Diagnosis Admission Diagnosis LEFT PLEURAL EFFUSION ADENOCARCINOMA LEFT LUNG PATHOLOGY PENDING HYPERTENSION HYPONATREMIA PNEUMONIA MALPOSITION OF PORT TIP WORSENING METASTATIC DISEASE WITH NEW LIVER LESIONS HX SMALL CELL LUNG CANCER Discharge Diagnosis LEFT PLEURAL EFFUSION ADENOCARCINOMA LEFT LUNG PATHOLOGY PENDING HYPERTENSION HYPONATREMIA PNEUMONIA MALPOSITION OF PORT TIP WORSENING METASTATIC DISEASE WITH NEW LIVER LESIONS AND POSSIBLE THROMBOSIS OF SUBCLAVIAN Reason Hospital Visit Pt is a 69CM with a PMh of recurrent small cell lung cancer who presented to the ER due to SOB. He states that he had small cell lung cancer roughly 20 years ago and did well but it has recurred recently. He was seen by Dr Schmidt to get staging scans done and pet was done on 08/17 which revealed lung mass and effusions. Imaging last night revealed significant worsening of the effusion from then though he states his symptoms really only started yesterday. He was unable to answer many questions yesterday and does better today though still was limited in his responses at times and HPI is somewhat limited by this. He knows that he has had a recurrence but he was unable to tell me about the imaging. RN reports this morning he has a recurrence of SOB but patient denies this as well or any events. He did have an ABG and CXR though to evaluate this that he does not seem to recall. Discharge Summary Discharge Physical Examination Allergies: Coded Allergies: No Known Drug Allergies (Unverified , 04/01/18) Vitals & I&Os Vital Signs Date Time Temp Pulse Resp B/P (MAP) Pulse Ox O2 Delivery O2 Flow Rate FiO2 09/17/20 08:16 Nasal Cannula 4.00 09/17/20 07:03 90 09/17/20 05:06 35.4 90 20 142/75 (97) Hospital Course LEFT PLEURAL EFFUSION ADENOCARCINOMA LEFT LUNG PATHOLOGY PENDING HYPERTENSION HYPONATREMIA PNEUMONIA MALPOSITION OF PORT TIP WORSENING METASTATIC DISEASE WITH NEW LIVER LESIONS AND POSSIBLE THROMBOSIS OF SUBCLAVIAN LEFT PLEURAL EFFUSION WITH KNOWN ADENOCARCINOMA LEFT LUNG PATHOLOGY PENDING - STATUS POST THORACENTESIS WITH 2+ LITERS DRAINED -METASTATIC ADENO FROM FLUID PATHOLOGY - WAITING ON SPECIAL STAINS FROM PREVIOUS PATHOLOGY - PHONE CALL PLACED TO LAB - WAITING ON PATHOLOGY STILL - MAY NOT BE ENOUGH SPECIMEN PER LAB REPORT. - CONSULT TO ONCOLOGY - PORT PLACEMENT 09/09/2020 WITH NEED FOR REPLACEMENT VERSUS REPOSITIONING OF PORT TIP. - WE DO NOT HAVE INTERVENTIONAL RADIOLOGIST ABLE TO REPOSITION TIP OF PORT, AND DR. FRANCO HAS TO TAKE PT BACK TO SURGERY TO ATTEMPT REPOSITIONING VERSUS REPLACEMENT OF PORT. - PT REMAINS FULL CODE. HYPERTENSION - RESUMED HOME MEDICATIONS. HYPONATREMIA - IMPROVED SODIUM ON LABS - STABILIZATION - MONITOR. OBSTRUCTIVE PNEUMONIA - POST ANTIBIOTICS CT CHEST WO IMPRESSION: 1. No significant change in the left hilar mass and mediastinal and supraclavicular lymphadenopathy. 2. Left pleural effusion now demonstrates internal debris and soft tissue nodularity likely representing a malignant effusion. This is new from prior exam. 3. New liver lesions are seen in segment V and possibly in segment II. 4. Stable postobstructive collapse of the left upper lobe and partial collapse of the left lower lobe. 5. New areas of groundglass dependently in the right lung which may represent aspiration pneumonitis or viral infection. Discharge Instructions to patient/family Please see electronic discharge instructions given to patient. Discharge Medications Reviewed and agree with Discharge Medication list on patient's Discharge Instruction sheet ESTHER VALDIVIA MD Sep 17, 2020 09:24
--- NOTE | 2020-09-17 11:02 | Therapy Team Discharge Summary ---
Therapy Discharge Summary Discharge Recommendations Date of Discharge Physical Therapy Patient to dismiss to home with family and home health on this date. Patient initially requires minimal to CGA assist for all mobility and fatigued quickly with minimal activity. Patient able to ambulate >900' with FWW and O2 modified independent with Good balance. Patient to dismiss to home with O2 due to pulmonary demand. Goals addressed but not all attained. Refer to LTG. Occupational Therapy Decreased Activ Tolerance, Decreased UE Strength, Impaired Funct Balance, Impaired I ADL's, Impaired Self-Care Skills PT [facility] Goals Market Research Intern Goals PT Market Research Intern Goals Time Frame: Oct 02, 2020 Roll Left to Right (QC): 5 (met 09/16/20) Sit to Lying (QC): 5 (met 09/16/20) Lying-Sitting on Side/Bed(QC): 5 (met 09/16/20) Sit to Stand (QC): 5 (met 09/16/20) Chair/[id number]-Vtrnh Xfer(QC): 5 (met 09/16/20) Car Transfer (QC): 5 (met 09/16/20) Does the Patient Walk: Yes Walk 10 feet (QC): 5 (met 09/16/20) Walk 10ft-Uneven Surface(QC): 5 (met 09/16/20) Walk 50ft with 2 Turns (QC): 5 (met 09/16/20) Walk 150 ft (QC): 5 (met 09/16/20) Wheel 50 feet with 2 turns (QC: 9 1 Step (curb) (QC): 5 4 Steps (QC): 5 12 Steps (QC): 9 Picking up an Object (QC): 5 (met 09/16/20) OT Market Research Intern Goals Ch[facility] Goals Time Frame: Sep 21, 2020 Eating (QC): 6 Oral Hygiene (QC): 6 Shower/Bathe Self (QC): 6 Upper Body Dressing (QC): 6 Lower Body Dressing (QC): 6 On/Off Footwear (QC): 6 Toileting Hygiene (QC): 6 Toilet/Commode Transfer (QC): 5 Additional Goals: 1-Demonstrate ADL Tasks, 2-Verbalize Understanding, 3- ImproveStrength/Dedrick 1=Demonstrate adherence to instructed precautions during ADL tasks. 2=Patient will verbalize/demonstrate understanding of assistive devices/modifications for ADL. 3=Patient will improve strength/tolerance for activity to enable patient to perform ADL's. ALISON HAMPTON PT Sep 17, 2020 11:02
[2020-09-17 11:44] VITALS: BP 142/75
--- NOTE | 2020-09-17 13:11 | Therapy Team Discharge Summary ---
Therapy Discharge Summary Discharge Recommendations Date of Discharge Sep 17, 2020 at 11:45 Occupational Therapy Pt admits with PE with malignant lung mass hx to SWB status. Pt completes herminia wering with SBA/ SUP, UB dressing s/u, LB dressing CGA and toileting SUP upon evaluation. During txs, pt denies many ADLs, though states improvement of showering with s/u level and IND with footwear. Pt and OT work towards fx activity endurance and strength to increase fx IND with I/ADLs at home, educated on theraband exercises and safety with breathing. Pt's educated on modified ways to assist with theraband tasks and with safety at home. Pt d/c's home with and sister in law. No OT d/c recommendations. Decreased Activ Tolerance, Decreased UE Strength, Impaired Funct Balance, Impaired I ADL's, Impaired Self-Care Skills PT Snf Goals Fish Farm Manager Goals PT Fish Farm Manager Goals Time Frame: Oct 02, 2020 Roll Left to Right (QC): 5 (met 09/16/20) Sit to Lying (QC): 5 (met 09/16/20) Lying-Sitting on Side/Bed(QC): 5 (met 09/16/20) Sit to Stand (QC): 5 (met 09/16/20) Chair/[id number]-Dugrv Xfer(QC): 5 (met 09/16/20) Car Transfer (QC): 5 (met 09/16/20) Does the Patient Walk: Yes Walk 10 feet (QC): 5 (met 09/16/20) Walk 10ft-Uneven Surface(QC): 5 (met 09/16/20) Walk 50ft with 2 Turns (QC): 5 (met 09/16/20) Walk 150 ft (QC): 5 (met 09/16/20) Wheel 50 feet with 2 turns (QC: 9 1 Step (curb) (QC): 5 4 Steps (QC): 5 12 Steps (QC): 9 Picking up an Object (QC): 5 (met 09/16/20) OT Fish Farm Manager Goals Snf Goals Time Frame: Sep 21, 2020 Eating (QC): 6 Oral Hygiene (QC): 6 Shower/Bathe Self (QC): 6 Upper Body Dressing (QC): 6 Lower Body Dressing (QC): 6 On/Off Footwear (QC): 6 Toileting Hygiene (QC): 6 Toilet/Commode Transfer (QC): 5 Additional Goals: 1-Demonstrate ADL Tasks, 2-Verbalize Understanding, 3- ImproveStrength/Dedrick 1=Demonstrate adherence to instructed precautions during ADL tasks. 2=Patient will verbalize/demonstrate understanding of assistive devices/modifications for ADL. 3=Patient will improve strength/tolerance for activity to enable patient to perform ADL's. FREDERIC ALICEA OTR Sep 17, 2020 13:11
== END 2020-09-17 11:45 | disposition home or self-care (01) | DRG 180 ==
LOC: 4TH 09:17
PROVIDERS: ADMIT Family Medicine; ATTEND Family Medicine
DX: C34.12 Malignant neoplasm of upper lobe, left bronchus or lung (principal); J18.9 Pneumonia, unspecified organism; C78.7 Secondary malignant neoplasm of liver and intrahepatic bile duct; J90 Pleural effusion, not elsewhere classified; E87.1 Hypo-osmolality and hyponatremia; I10 Essential (primary) hypertension
CPT/HCPCS: 36415; 80053; 85027; 94640; 94760; 94761

== ENCOUNTER 2020-09-21 13:31 | Outpatient (RCR) | payer MEDICARE, OTHER ==
[~2020-09-21 13:31] MED LIST changes: +ALBU18HF2 IH; +BENZ100C18 PO; +CARBOplatin 420 MG in D5W 50 ML IV(CANCER CTR) 50 ML IV SCH; +CYANOCOBALAMIN INJ 1000 MCG/ML (CANCER CENTER) ONE; +FLUT12AE4 IH; +FOSAPREPITANT (CANCER CENTER) 150 MG in NS (IVPB) CANCER CENTER ONLY 150 ML IV SCH; +HYDR-3584 PO; +NS IV 1000 ML (CANCER CTR) IV SCH; +ONDA4TAB11 PO; +PEMBROLIZUMAB 200 MG in NS (IVPB) CANCER CENTER 50 ML IV SCH; +PEMETREXED DISODIUM 1,000 MG in NS (IVPB) CANCER CENTER 100 ML IV SCH
[2020-09-21 14:01] LABS: BASOPHILS % (AUTO) 0 % (0-10); EOSINOPHILS # (AUTO) 0.2 10^3/uL (0.0-0.3); EOSINOPHILS % (AUTO) 4 % (0-10); HEMATOCRIT 34 % (40-54); HEMOGLOBIN 11.2 g/dL (13.3-17.7); LYMPHOCYTES # (AUTO) 0.5 10^3/uL (1.0-4.0); LYMPHOCYTES % (AUTO) 9 % (12-44); MEAN CORPUSCULAR HEMOGLOBIN 29 pg (25-34); MEAN CORPUSCULAR HGB CONC 33 g/dL (32-36); MEAN CORPUSCULAR VOLUME 88 fL (80-99); MEAN PLATELET VOLUME 8.4 fL (9.0-12.2); MONOCYTES # (AUTO) 0.1 10^3/uL (0.0-1.0); MONOCYTES % (AUTO) 2 % (0-12); NEUTROPHILS # (AUTO) 4.8 10^3/uL (1.8-7.8); NEUTROPHILS % (AUTO) 84 % (42-75); PLATELET COUNT 170 10^3/uL (130-400); WHITE BLOOD COUNT 5.6 10^3/uL (4.3-11.0)
[2020-09-21 14:20] LABS: BUN/CREATININE RATIO 25; CALCIUM 8.9 MG/DL (8.5-10.1); CARBON DIOXIDE 21 MMOL/L (21-32); CHLORIDE 98 MMOL/L (98-107); CREATININE SERUM 1.04 MG/DL (0.60-1.30); GFR ESTIMATED > 60; GLUCOSE 192 MG/DL (70-105); POTASSIUM 3.8 MMOL/L (3.6-5.0); SODIUM 133 MMOL/L (135-145)
[2020-09-22] MEDS ORDERED: CARV3.12 PO ×2 (14:41)
[2020-09-22] MEDS ORDERED: RT-ALBUINH INH (14:41)
[2020-09-22] MEDS ORDERED: OXYC10TA7 PO (14:41)
[2020-09-22] MEDS ORDERED: DEXA4TAB PO (14:41)
[2020-09-22] MEDS ORDERED: HYDR-3584 PO (14:41)
[2020-09-22] MEDS ORDERED: BENZ-36 PO (14:41)
[2020-09-22] MEDS ORDERED: ONDA4TAB11 PO (14:41)
[2020-09-22] MEDS ORDERED: FLUT1BLS12 INH (14:41)
[2020-09-22] MEDS ORDERED: ASCO500T17 PO (14:42)
[2020-09-22] MEDS ORDERED: VITA400C60 PO (14:42)
[2020-09-22] MEDS ORDERED: OMEG-109 PO (14:42)
[2020-09-24] MEDS ORDERED: LACT1CAP87 PO (09:56)
[2020-09-24] MEDS ORDERED: RIVA15TA2 PO (09:56)
[2020-09-24] MEDS ORDERED: RIVA20TA2 PO (09:56)
[2020-09-24] MEDS ORDERED: PRD10T PO (09:56)
[2020-09-24] MEDS ORDERED: AMOX-358 PO (09:56)
== END 2020-11-22 | disposition home or self-care (01) ==
LOC: ONC 13:31
PROVIDERS: ATTEND Internal Medicine Hematology & Oncology
DX: C34.92 Malignant neoplasm of unspecified part of left bronchus or lung (principal); C78.7 Secondary malignant neoplasm of liver and intrahepatic bile duct; F17.210 Nicotine dependence, cigarettes, uncomplicated
CPT/HCPCS: 87449; G0463; 80048; 85025; 96367; 96372; 96375; 96411; 96413; 96417; 99214

== ENCOUNTER 2020-09-21 17:23 | Inpatient (IN) | payer MEDICARE, OTHER ==
[~2020-09-21] VITALS: Ht 182.8 cm; Wt 83.6 kg
[~2020-09-21 17:23] MED LIST changes: -CARBOplatin 420 MG in D5W 50 ML IV(CANCER CTR) 50 ML IV SCH; -CYANOCOBALAMIN INJ 1000 MCG/ML (CANCER CENTER) ONE; -FOSAPREPITANT (CANCER CENTER) 150 MG in NS (IVPB) CANCER CENTER ONLY 150 ML IV SCH; -NS IV 1000 ML (CANCER CTR) IV SCH; -PEMBROLIZUMAB 200 MG in NS (IVPB) CANCER CENTER 50 ML IV SCH; -PEMETREXED DISODIUM 1,000 MG in NS (IVPB) CANCER CENTER 100 ML IV SCH
--- NOTE | 2020-09-21 17:39 | ED General ---
General Chief Complaint: General Problems/Pain Stated Complaint: SOB Source of Information: Patient Exam Limitations: No Limitations History of Present Illness Date Seen by Provider: Sep 21, 2020 Time Seen by Provider: 17:39 Initial Comments To ER with c/o AMS onset this evening. Has left lung cancer with mets to mediastinal lymph nodes, nodule in liver, a few left sided ribs, questionable right femoral greater trochanter. Got out and about for labs today which exhausted him. WEnt home and according to the ELAINE Keller he sat in his recliner and was moaning c/o left leg pain. Upon arrival here he knows where he is at but does not knkow the year. Denies any pains. Timing/Duration: 4-6 Hours Severity: Moderate Associated Systoms: Denies Symptoms Allergies and Home Medications Allergies Coded Allergies: No Known Drug Allergies (Unverified , 04/01/18) Home Medications Albuterol Sulfate 18 Gm Hfa.aer.ad, 0 GM IH RTQ4HR 1 PUFF EVERY 4 HOURS AND 1 PUFF EVERY 2 HOURS IF NEEDED FOR SHORTNESS OF BREATH Prescribed by: ESTHER LANE on 09/17/20915 Benzonatate 100 Mg Capsule, 100 MG PO TID MUST SWALLOW WHOLE, DO NOT CRUSH OR CHEW THIS CAPSULE Prescribed by: ESTHER LANE on 09/17/20915 C,E,Zinc,Copper 11/Mlfjt2u/Lut 1 Each Capsule, 1 EACH PO DAILY, (Reported) Carvedilol 3.125 Mg Tablet, 3.125 MG PO UD 1 TAB IN MORNING 2 TAB AT BEDTIME Prescribed by: ESTHER LANE on 09/17/20915 Fluticasone/Salmeterol 12 Gm Hfa.aer.ad, 2 PUFF IH RTBID Prescribed by: ESTHER LANE on 09/17/20915 Folic Acid 1 Mg Tablet, 1 MG PO DAILY, (Reported) Hydroxyzine HCl 10 Mg Tablet, 10 MG PO TID PRN for anxiety Prescribed by: ESTHER LANE on 09/17/20915 Lovastatin 40 Mg Tablet, 40 MG PO DAILY, (Reported) Omeprazole 20 Mg Capsule.dr, 20 MG PO DAILY, (Reported) Ondansetron 4 Mg Tab.rapdis, 4 MG PO Q6H Prescribed by: ESTHER LANE on 09/17/20915 Oxycodone HCl 10 Mg Tablet, 10 MG PO Q6H PRN for PAIN-SEVERE (8-10) TAKE IF NEEDED FOR PAIN FROM LUNG CANCER Prescribed by: ESTHER LANE on 09/17/20915 Patient Home Medication List Home Medication List Reviewed: Yes Review of Systems Review of Systems Constitutional: see HPI EENTM: see HPI Respiratory: no symptoms reported Cardiovascular: no symptoms reported Genitourinary: no symptoms reported Musculoskeletal: no symptoms reported Skin: no symptoms reported Psychiatric/Neurological: No Symptoms Reported Hematologic/Lymphatic: No Symptoms Reported Immunological/Allergic: no symptoms reported Past Sbhsxpc-Xcihwa-Feeqto Hx Patient Social History Alcohol Beverage of Choice: Whiskey, [place] Type Used: Cigarettes Former Smoker, Quit: Apr 01, 2000 2nd Hand Smoke Exposure: No Recent Hopitalizations: No Immunizations Up To Date Tetanus Booster (TDap): Unknown Date of Influenza Vaccine: May 06, 2020 Seasonal Allergies Seasonal Allergies: No Past Medical History Surgeries: Yes (WISDOM TEETH REMOVAL, INGUINAL HERNIA) Abdominal Respiratory: No Currently Using CPAP: No Currently Using BIPAP: No Cardiac: Yes High Cholesterol, Hypertension Neurological: No Reproductive Disorders: No Sexually Transmitted Disease: No HIV/AIDS: No Genitourinary: No Gastrointestinal: Yes Diverticulosis, Polyps Musculoskeletal: Yes (SHOULDERS) Arthritis Endocrine: No HEENT: No Loss of Vision: Bilateral Hearing Impairment: Denies Cancer: Yes (SMALL CELL LUNG CANCER) Lung Did You Recieve Any Treatments: Yes What Type of Treatment Did You: Chemotherapy, Radiation Psychosocial: No Integumentary: No Blood Disorders: No Adverse Reaction/Blood Tranf: No (N/A) Family Medical History No Pertinent Family Hx ADDITIONAL PAST SURGICAL HISTORY: -LEFT INGUINAL HERNIA REPAIR 02/19/14 -REMOVAL OF BASAL CELL SKIN CANCER RIGHT JEHOVAH'S WITNESS 04/04/18 -COLONOSCOPY 12/19/19- FINDINGS: There was no evidence for internal or external hemorrhoids and the rectum was unremarkable. Mild to moderate number of small to medium size sigmoid diverticulum were present without evidence for diverticulitis. No other sigmoid colonic abnormalities were appreciated. The descending colon, splenic flexure, transverse colon and hepatic flexure were unremarkable. Present in the proximal ascending colon was a 5 to 6 mm sessile polyp. It was biopsied and ablated and submitted for histopathology after photographic documentation. No significant blood loss was noted. ASSESSMENT: 1. A 5 to 6 mm sessile polyp was removed from the proximal ascending colon. As long as there is no surprise on histopathology report, would advocate repeat surveillance colonoscopy in 5 years as long as the patient's health remains good. 2. There is a 5 mm firm nodule involving the upper outer left quadrant of the prostate suspicious for underlying cancer. Discussed this finding with the patient. He believes that he has had a urology visit in the last 2 to 3 years, but does not know if it was specifically for a nodule. He is going to be getting some screening labs that he believes the PSA as part of, with an upcoming visit with Dr. Lane. Physical Exam Vital Signs Vital Signs - First Documented 09/21/20 17:25 Temp 37.0 Pulse 92 Resp 18 B/P (MAP) 130/70 (90) Pulse Ox 100 O2 Delivery Nasal Cannula O2 Flow Rate 6.00 Capillary Refill : Height, Weight, BMI Height: 5'9.00" Weight: 200lbs. 0.0oz. 90.437204og; 58.89 BMI Method:Stated General Appearance: No Apparent Distress, WD/WN Eyes: Bilateral Eye Normal Inspection, Bilateral Eye PERRL Neck: Full Range of Motion, Normal Inspection Respiratory: Normal Breath Sounds, No Accessory Muscle Use, No Respiratory Distress, Other (diminished on left ) Cardiovascular: Regular Rate, Rhythm, Normal Peripheral Pulses Gastrointestinal: Normal Bowel Sounds, Non Tender, Soft Extremity: Normal Capillary Refill, Normal Inspection, Other (neither leg swollen. ) Neurologic/Psychiatric: Alert, Oriented x3 Skin: Normal Color, Warm/Dry Focused Exam Lactate Level 09/21/20 17:45: Lactic Acid Level 1.16 Lactic Acid Level Laboratory Tests Test 09/21/20 17:45 Lactic Acid Level 1.16 MMOL/L (0.50-2.00) Progress/Results/Core Measures Suspected Sepsis SIRS Temperature: Pulse: Respiratory Rate: Laboratory Tests 09/21/20 17:45: White Blood Count 4.7 Blood Pressure / Mean: 09/21/20 17:45: Lactic Acid Level 1.16 Laboratory Tests 09/21/20 17:45: Creatinine 0.95, INR Comment 1.1, Platelet Count 166, Total Bilirubin 0.5 Results/Orders Lab Results Laboratory Tests Test 09/21/20 17:36 09/21/20 17:45 09/21/20 18:40 Range/Units Blood Gas Puncture Site RR Blood Gas Patient Temperature 37 Arterial Blood pH 7.41 7.37-7.43 Arterial Blood Partial Pressure CO2 40 35-45 MMHG Arterial Blood Partial Pressure O2 69 L 79-93 MMHG Arterial Blood HCO3 25 23-27 MMOL/L Arterial Blood Total CO2 25.8 21.0-31.0 MMOL/L Arterial Blood Oxygen Saturation 93 L 94-100 % Arterial Blood Base Excess 0.6 -2.5-2.5 MMOL/L Enio Test YES-POS Blood Gas Ventilator Setting NO Blood Gas Inspired Oxygen 6L White Blood Count 4.7 4.3-11.0 10^3/uL Red Blood Count 3.93 L 4.30-5.52 10^6/uL Hemoglobin 11.3 L 13.3-17.7 g/dL Hematocrit 34 L 40-54 % Mean Corpuscular Volume 87 80-99 fL Mean Corpuscular Hemoglobin 29 25-34 pg Mean Corpuscular Hemoglobin Concent 33 32-36 g/dL Red Cell Distribution Width 12.1 10.0-14.5 % Platelet Count 166 130-400 10^3/uL Mean Platelet Volume 8.1 L 9.0-12.2 fL Immature Granulocyte % (Auto) 1 % Neutrophils (%) (Auto) 81 H 42-75 % Lymphocytes (%) (Auto) 11 L 12-44 % Monocytes (%) (Auto) 2 0-12 % Eosinophils (%) (Auto) 5 0-10 % Basophils (%) (Auto) 0 0-10 % Neutrophils # (Auto) 3.8 1.8-7.8 10^3/uL Lymphocytes # (Auto) 0.5 L 1.0-4.0 10^3/uL Monocytes # (Auto) 0.1 0.0-1.0 10^3/uL Eosinophils # (Auto) 0.2 0.0-0.3 10^3/uL Basophils # (Auto) 0.0 0.0-0.1 10^3/uL Immature Granulocyte # (Auto) 0.0 0.0-0.1 10^3/uL Prothrombin Time 14.2 12.2-14.7 SEC INR Comment 1.1 0.8-1.4 Sodium Level 136 135-145 MMOL/L Potassium Level 4.0 3.6-5.0 MMOL/L Chloride Level 100 98-107 MMOL/L Carbon Dioxide Level 21 21-32 MMOL/L Anion Gap 15 H 5-14 MMOL/L Blood Urea Nitrogen 23 H 7-18 MG/DL Creatinine 0.95 0.60-1.30 MG/DL Estimat Glomerular Filtration Rate > 60 BUN/Creatinine Ratio 24 Glucose Level 101 70-105 MG/DL Lactic Acid Level 1.16 0.50-2.00 MMOL/L Calcium Level 8.6 8.5-10.1 MG/DL Corrected Calcium 9.1 8.5-10.1 MG/DL Total Bilirubin 0.5 0.1-1.0 MG/DL Aspartate Amino Transf (AST/SGOT) 27 5-34 U/L Alanine Aminotransferase (ALT/SGPT) 32 0-55 U/L Alkaline Phosphatase 69 40-136 U/L Total Protein 7.2 6.4-8.2 GM/DL Albumin 3.4 3.2-4.5 GM/DL Procalcitonin 0.11 H <0.10 NG/ML Urine Color YELLOW Urine Clarity CLEAR Urine pH 6.0 5-9 Urine Specific [place] 1.025 H 1.016-1.022 Urine Protein TRACE H NEGATIVE Urine Glucose (UA) NEGATIVE NEGATIVE Urine Ketones NEGATIVE NEGATIVE Urine Nitrite NEGATIVE NEGATIVE Urine Bilirubin NEGATIVE NEGATIVE Urine Urobilinogen 0.2 < = 1.0 MG/DL Urine Leukocyte Esterase NEGATIVE NEGATIVE Urine RBC (Auto) TRACE-I NEGATIVE Urine RBC 5-10 H /HPF Urine WBC 2-5 /HPF Urine Squamous Epithelial Cells NONE /HPF Urine Crystals NONE /LPF Urine Bacteria NEGATIVE /HPF Urine Casts NONE /LPF Urine Mucus NEGATIVE /LPF Urine Culture Indicated NO My Orders Orders - LETY CHIU APRN Arterial Blood Gas (09/21/20 17:37) Cbc With Automated Diff (09/21/20 17:37) Comprehensive Metabolic Panel (09/21/20 17:37) Procalcitonin (Pct) (09/21/20 17:37) Protime With Inr (09/21/20 17:37) Ct Head Wo (09/21/20 17:37) Ua Culture If Indicated (09/21/20 17:37) Femur, Left, 2 Views (09/21/20 17:40) Tibia/Fibula, Left, 2 Views (09/21/20 17:40) Blood Culture (09/21/20 17:44) Lactic Acid Analyzer (09/21/20 17:44) Chest 1 View, Ap/Pa Only (09/21/20 19:06) Vital Signs/I&O 09/21/20 17:25 Temp 37.0 Pulse 92 Resp 18 B/P (MAP) 130/70 (90) Pulse Ox 100 O2 Delivery Nasal Cannula O2 Flow Rate 6.00 Capillary Refill : Diagnostic Imaging Diagonstic Imaging: CT Comments NAME: YULIA BOYD [facility] REC#: [id number] PT STATUS: REG ER : 1950 PHYSICIAN: LETY CHIU APRN ADMIT DATE: 09/21/20/ER Draft Date of Exam:09/21/20 CT HEAD WO PROCEDURE: CT head without contrast. TECHNIQUE: Multiple contiguous axial images were obtained through the brain without the use of intravenous contrast. Auto Exposure Controls were utilized during the CT exam to meet ALARA standards for radiation dose reduction. INDICATION: Altered mental status, lethargy, confusion. COMPARISON: 09/04/2020 FINDINGS: No intracranial hemorrhage. No intracranial mass, mass effect, midline shift, herniation, hydrocephalus, or extra-axial fluid collection. Periventricular and subcortical white matter hypodensities are again identified, appearing stable from the prior examination. No CT evidence of an acute ischemic infarction. The orbits are unremarkable. Partial opacification of the bilateral hypoplastic maxillary sinuses. This appears similar to the prior examination. The paranasal sinuses are otherwise clear. The calvarium is intact. IMPRESSION: No acute intracranial abnormality with stable appearing moderate background chronic small vessel white matter ischemic disease. Stable near-complete opacification of bilateral hypoplastic maxillary sinuses. Dictated on workstation # [id number] Dict: 09/21/20 183 Trans: 09/21/201838 [facility] [id number] Interpreted by: LEENA MEYER MD Electronically signed by: Departure Communication (Admissions) 1929-discussed with Dr. Lane she states the altered mental status is his baseline. He is still alert, knows he is at the hospital but does not know much detail about why he is here. Dr. Lane reports that his mwuzfk-ba-uag Arianna who is taking care of him was offered assisted placement for him but they were against that understandably. Impression Primary Impression: Metastatic lung cancer (metastasis from lung to other site) Disposition: 01 HOME, SELF-CARE Condition: Stable Departure-Patient Inst. Decision time for Depature: 19:31 Referrals: ESTHER LANE MD (PCP/Family) Primary Care Physician Patient Instructions: Small Cell Lung Cancer LETY CHIU APRN Sep 21, 2020 17:39
[2020-09-21 17:43] LABS: ABG BASE EXCESS 0.6 MMOL/L (-2.5-2.5); ABG OXYGEN SATURATION 93 % (94-100); ABG PCO2 40 MMHG (35-45); ABG PH 7.41 (7.37-7.43); ABG PO2 69 MMHG (79-93); ABG TCO2 25.8 MMOL/L (21.0-31.0)
[2020-09-21 17:47] LABS: ALLENS TEST YES-POS; INSPIRED O2 6L; PATIENT TEMP 37; VENTILATOR NO
[2020-09-21 18:05] LABS: BASOPHILS % (AUTO) 0 % (0-10); EOSINOPHILS # (AUTO) 0.2 10^3/uL (0.0-0.3); EOSINOPHILS % (AUTO) 5 % (0-10); HEMATOCRIT 34 % (40-54); HEMOGLOBIN 11.3 g/dL (13.3-17.7); LYMPHOCYTES # (AUTO) 0.5 10^3/uL (1.0-4.0); LYMPHOCYTES % (AUTO) 11 % (12-44); MEAN CORPUSCULAR HEMOGLOBIN 29 pg (25-34); MEAN CORPUSCULAR HGB CONC 33 g/dL (32-36); MEAN CORPUSCULAR VOLUME 87 fL (80-99); MEAN PLATELET VOLUME 8.1 fL (9.0-12.2); MONOCYTES # (AUTO) 0.1 10^3/uL (0.0-1.0); MONOCYTES % (AUTO) 2 % (0-12); NEUTROPHILS # (AUTO) 3.8 10^3/uL (1.8-7.8); NEUTROPHILS % (AUTO) 81 % (42-75); PLATELET COUNT 166 10^3/uL (130-400); WHITE BLOOD COUNT 4.7 10^3/uL (4.3-11.0)
[2020-09-21 18:14] LABS: ALBUMIN 3.4 GM/DL (3.2-4.5); CHLORIDE 100 MMOL/L (98-107); SODIUM 136 MMOL/L (135-145)
[2020-09-21 18:15] LABS: CALCIUM 8.6 MG/DL (8.5-10.1)
[2020-09-21 18:16] LABS: GLUCOSE 101 MG/DL (70-105); INR 1.1 (0.8-1.4); PROTHROMBIN TIME PATIENT 14.2 SEC (12.2-14.7); TOTAL PROTEIN 7.2 GM/DL (6.4-8.2)
[2020-09-21 18:17] LABS: CARBON DIOXIDE 21 MMOL/L (21-32)
[2020-09-21 18:18] LABS: BILIRUBIN,TOTAL 0.5 MG/DL (0.1-1.0)
[2020-09-21 18:20] LABS: ALKALINE PHOSPHATASE 69 U/L (40-136); CREATININE SERUM 0.95 MG/DL (0.60-1.30); GFR ESTIMATED > 60
[2020-09-21 18:21] LABS: BUN/CREATININE RATIO 24
[2020-09-21 18:23] LABS: ALANINE AMINOTRANSFERASE 32 U/L (0-55)
--- NOTE | 2020-09-21 18:40 | Diagnostic Imaging Report ---
PROCEDURE: CT head without contrast. TECHNIQUE: Multiple contiguous axial images were obtained through the brain without the use of intravenous contrast. Auto Exposure Controls were utilized during the CT exam to meet ALARA standards for radiation dose reduction. INDICATION: Altered mental status, lethargy, confusion. COMPARISON: 09/04/2020 FINDINGS: No intracranial hemorrhage. No intracranial mass, mass effect, midline shift, herniation, hydrocephalus, or extra-axial fluid collection. Periventricular and subcortical white matter hypodensities are again identified, appearing stable from the prior examination. No CT evidence of an acute ischemic infarction. The orbits are unremarkable. Partial opacification of the bilateral hypoplastic maxillary sinuses. This appears similar to the prior examination. The paranasal sinuses are otherwise clear. The calvarium is intact. IMPRESSION: No acute intracranial abnormality with stable appearing moderate background chronic small vessel white matter ischemic disease. Stable near-complete opacification of bilateral hypoplastic maxillary sinuses. Dictated by: Dictated on workstation # [id number]
[2020-09-21 18:48] LABS: BILIRUBIN,URINE NEGATIVE (NEGATIVE); CLARITY,URINE CLEAR; COLOR,URINE YELLOW; GLUCOSE, URINE (UA) NEGATIVE (NEGATIVE); KETONES,URINE NEGATIVE (NEGATIVE); LEUKOCYTE ESTERASE ,URINE NEGATIVE (NEGATIVE); NITRITE,URINE NEGATIVE (NEGATIVE); PROTEIN,URINE TRACE (NEGATIVE)
[2020-09-21 18:55] LABS: BACTERIA,URINE NEGATIVE /HPF
--- NOTE | 2020-09-21 19:04 | Diagnostic Imaging Report ---
INDICATION: Pain COMPARISON: Imaging from the same date TECHNIQUE: 4 radiographs of the left femur dated 09/21/2020 FINDINGS: Phleboliths within the lower pelvis. No acute fracture or dislocation. No destructive osseous process. No suspicious radiopaque foreign body. No abnormal periosteal reaction. IMPRESSION: No acute osseous abnormality. Dictated by: Dictated on workstation # [id number]
--- NOTE | 2020-09-21 19:04 | Diagnostic Imaging Report ---
INDICATION: Pain COMPARISON: Imaging from the same date TECHNIQUE: 4 radiographs of the left tibia and fibula dated 09/21/2020 FINDINGS: No acute fracture or dislocation. No destructive osseous process. No suspicious radiopaque foreign body. IMPRESSION: No acute osseous abnormality. Dictated by: Dictated on workstation # [id number]
--- NOTE | 2020-09-21 19:53 | Diagnostic Imaging Report ---
Clinical Indications: Patient with shortness of air and lung cancer with metastases to bone. Exam: Portable chest x-ray upright view. Comparisons: Chest x-ray dated 09/10/2020. Findings: Lungs/pleura: Lungs are clear. There is no pneumothorax. There is no pleural effusion. There is interval development of patchy airspace opacities involving the right upper lobe and inferior right perihilar region. There is interval improved aeration of the left lung with residual left pleural effusion and left lung base consolidation. There is cardiomegaly. Pulmonary vasculature is within normal limits. There is no pneumothorax. Again seen, Port-A-Cath overlying the right chest. There are degenerative spurs involving the thoracic spine. IMPRESSION: 1: There is interval development of patchy lung infiltrates involving the right upper lobe and inferior right perihilar region which may represent pneumonia. 2: There is improved aeration of the left lung and decreased size of the left pleural effusion. There is residual left pleural effusion and left lung base consolidation. 3: There is cardiomegaly with no significant pulmonary vascular congestion. Dictated by: Dictated on workstation # [id number]
[2020-09-21] MEDS ORDERED: IOHEXOL 350 MG/ML 100 ML (OMNIPAQUE 350) VIAL IV ONE (20:00)
[2020-09-21] MEDS ORDERED: HOLD METFORMIN - RECEIVED CONTRAST 20 ML VIAL IV SCH (20:00)
[2020-09-21] MEDS ORDERED: NS 100 ML (IVPB) BAG IV ONE (20:00)
[2020-09-21] MEDS ORDERED: CATHETER FLUSH 10 ML SYR IV PRN (20:00)
--- NOTE | 2020-09-21 20:32 | Diagnostic Imaging Report ---
Clinical Indication: Patient with history of lung cancer and bone metastases. Patient with hypoxia. Exam: CT angiogram of the chest performed with 74 cc Omnipaque 350 IV contrast. Coronal and oblique MIP images of the vasculature were created to better evaluate anatomy. Auto Exposure Controls were utilized during the CT exam to meet ALARA standards for radiation dose reduction. Comparison: CT scan of the chest without contrast dated 09/10/2020. Findings: There is a moderate sized loculated left pleural effusion which has slightly decreased in the interim. There is groundglass opacification involving portions of the left upper lobe and left lower lobe. There is slight improved aeration the left lung overall. There is persisting consolidation involving the medial aspect of the left upper lobe and left upper perihilar region. There is interval development of ground glass consolidation involving the periphery of the right upper lobe, middle lobe, and right lower lobe regions. There is no right pleural effusion. There is no pneumothorax. There is occlusive and nonocclusive thrombus seen involving the right main pulmonary artery distally which extends into a few right upper lobe segmental and subsegmental branches, middle lobe segmental branches proximally, and all of the right lower lobe segmental pulmonary branches proximally and some subsegmental areas. There is no definite pulmonary embolism involving the left pulmonary arteries. There is narrowing of the left upper lobe pulmonary arteries in the region of the medial consolidation of the left upper lobe and left perihilar region. There is no thoracic aortic aneurysm or dissection. Mediastinal lymphadenopathy is again seen. There is a large subcarinal lymph node/mass again seen. This area measures 2.3 cm x 4.4 cm which is not significantly changed in the interim when remeasured. Limited visualization of the upper abdominal structures show no significant abnormality. The extra thoracic soft tissue structures are unremarkable. There is a Port-A-Cath overlying the right chest with distal portion in the distal superior vena cava. There are degenerative spurs involving the thoracic spine. IMPRESSION: 1: There is extensive occlusive and nonocclusive thrombus throughout the right lung pulmonary arteries consistent with pulmonary emboli, as described above. There is no pulmonary embolism involving the left pulmonary arteries. There is no significant right heart strain seen. 2: There is a moderate sized loculated left pleural effusion which is slightly decreased in size in the interim. There is slight improved aeration of the left lung. There is residual consolidation involving the medial aspect of the left upper lobe and left perihilar region which may be related to patient's history of mass. 3: There is interval development of ground glass consolidations involving the periphery of the right lung. These may represent areas of pulmonary infarct or hemorrhage. Infection or inflammatory process may also be considered. 4: Mediastinal lymphadenopathy is again seen. Results of this report were discussed with Ras Johnson APRN via the telephone on 09/21/2020 at 2023 hours Dictated by: Dictated on workstation # [id number]
[2020-09-21 21:56] VITALS: BP 146/89
[2020-09-21] MEDS: NS IV 1000 ML 1,000 ML IV SCH (22:22)
[2020-09-21] MEDS ORDERED: ENOXAPARIN 100 MG/1 ML (LOVENOX) SYR SC SCH (22:30)
[2020-09-21 23:41] VITALS: BP 123/76
[2020-09-22] MEDS: guaiFENesin/DM (ROBITUSSIN DM) 10 ML UDC PO PRN ×2 (01:11→13:43)
[2020-09-22 03:31] LABS: BASOPHILS % (AUTO) 0 % (0-10); EOSINOPHILS # (AUTO) 0.2 10^3/uL (0.0-0.3); EOSINOPHILS % (AUTO) 6 % (0-10); HEMATOCRIT 31 % (40-54); HEMOGLOBIN 10.2 g/dL (13.3-17.7); LYMPHOCYTES # (AUTO) 0.5 10^3/uL (1.0-4.0); LYMPHOCYTES % (AUTO) 12 % (12-44); MEAN CORPUSCULAR HEMOGLOBIN 29 pg (25-34); MEAN CORPUSCULAR HGB CONC 33 g/dL (32-36); MEAN CORPUSCULAR VOLUME 87 fL (80-99); MEAN PLATELET VOLUME 8.6 fL (9.0-12.2); MONOCYTES # (AUTO) 0.2 10^3/uL (0.0-1.0); MONOCYTES % (AUTO) 4 % (0-12); NEUTROPHILS % (AUTO) 78 % (42-75); PLATELET COUNT 127 10^3/uL (130-400); WHITE BLOOD COUNT 3.8 10^3/uL (4.3-11.0)
[2020-09-22 03:44] LABS: CHLORIDE 102 MMOL/L (98-107); POTASSIUM 3.7 MMOL/L (3.6-5.0); SODIUM 135 MMOL/L (135-145)
[2020-09-22 03:45] LABS: CALCIUM 8.4 MG/DL (8.5-10.1)
[2020-09-22 03:47] LABS: GLUCOSE 170 MG/DL (70-105); TOTAL PROTEIN 6.2 GM/DL (6.4-8.2)
[2020-09-22 03:48] LABS: CARBON DIOXIDE 24 MMOL/L (21-32)
[2020-09-22 03:49] LABS: BILIRUBIN,TOTAL 0.4 MG/DL (0.1-1.0)
[2020-09-22 03:50] LABS: ALKALINE PHOSPHATASE 61 U/L (40-136); CREATININE SERUM 0.87 MG/DL (0.60-1.30); GFR ESTIMATED > 60
[2020-09-22 03:51] LABS: BUN/CREATININE RATIO 24
[2020-09-22 03:53] LABS: ALANINE AMINOTRANSFERASE 25 U/L (0-55)
[2020-09-22 05:08] VITALS: BP 142/85
--- NOTE | 2020-09-22 06:21 | Pulmonary Consultation ---
History of Present Illness History of Present Illness Date Seen by Provider: Sep 22, 2020 Time Seen by Provider: 06:15 Date of Admission Allergies and Home Medications Allergies Coded Allergies: No Known Drug Allergies (Unverified , 04/01/18) Home Medications Albuterol Sulfate 18 Gm Hfa.aer.ad, 0 GM IH RTQ4HR 1 PUFF EVERY 4 HOURS AND 1 PUFF EVERY 2 HOURS IF NEEDED FOR SHORTNESS OF BREATH Prescribed by: ESTHER LANE on 09/17/20915 Benzonatate 100 Mg Capsule, 100 MG PO TID MUST SWALLOW WHOLE, DO NOT CRUSH OR CHEW THIS CAPSULE Prescribed by: ESTHER LANE on 09/17/20915 C,E,Zinc,Copper 11/Zaewg4d/Lut 1 Each Capsule, 1 EACH PO DAILY, (Reported) Carvedilol 3.125 Mg Tablet, 3.125 MG PO UD 1 TAB IN MORNING 2 TAB AT BEDTIME Prescribed by: ESTHER LANE on 09/17/20915 Fluticasone/Salmeterol 12 Gm Hfa.aer.ad, 2 PUFF IH RTBID Prescribed by: ESTHER LANE on 09/17/20915 Folic Acid 1 Mg Tablet, 1 MG PO DAILY, (Reported) Hydroxyzine HCl 10 Mg Tablet, 10 MG PO TID PRN for anxiety Prescribed by: ESTHER LANE on 09/17/20915 Lovastatin 40 Mg Tablet, 40 MG PO DAILY, (Reported) Omeprazole 20 Mg Capsule.dr, 20 MG PO DAILY, (Reported) Ondansetron 4 Mg Tab.rapdis, 4 MG PO Q6H Prescribed by: ESTHER LANE on 09/17/20915 Oxycodone HCl 10 Mg Tablet, 10 MG PO Q6H PRN for PAIN-SEVERE (8-10) TAKE IF NEEDED FOR PAIN FROM LUNG CANCER Prescribed by: ESTHER LANE on 09/17/20915 Past Hxfsbeu-Vyxsvg-Ngxuyi Hx Patient Social History Alcohol Use: Denies Use Number of Drinks Today: BB Alcohol Beverage of Choice: Whiskey, [place] Smoking Status: Former Smoker Type Used: Cigarettes Former Smoker, Quit: Apr 01, 2000 2nd Hand Smoke Exposure: No Recent Infectious Disease Expo: No Recent Hopitalizations: No Have you traveled recently?: No Alcohol Use?: No Immunizations Up To Date Tetanus Booster (TDap): Unknown Date of Influenza Vaccine: May 06, 2020 Seasonal Allergies Seasonal Allergies: No Past Medical History Surgeries: Yes (PORT) Abdominal Respiratory: Yes (HOME O2 D/T LUNG CA) Currently Using CPAP: No Currently Using BIPAP: No Cardiac: Yes High Cholesterol, Hypertension Neurological: No Reproductive Disorders: No Sexually Transmitted Disease: No HIV/AIDS: No Genitourinary: No Gastrointestinal: Yes Diverticulosis, Polyps Musculoskeletal: Yes (SHOULDERS) Arthritis Endocrine: No HEENT: No Loss of Vision: Bilateral Hearing Impairment: Denies Cancer: Yes (SCL 19 YEARS AGO ) Lung Did You Recieve Any Treatments: Yes What Type of Treatment Did You: Chemotherapy Psychosocial: No Integumentary: No Blood Disorders: No Adverse Reaction/Blood Tranf: No (N/A) Family Medical History No Pertinent Family Hx ADDITIONAL PAST SURGICAL HISTORY: -LEFT INGUINAL HERNIA REPAIR 02/19/14 -REMOVAL OF BASAL CELL SKIN CANCER RIGHT [place]OR[place] 04/04/18 -COLONOSCOPY 12/19/19- FINDINGS: There was no evidence for internal or external hemorrhoids and the rectum was unremarkable. Mild to moderate number of small to medium size sigmoid diverticulum were present without evidence for diverticulitis. No other sigmoid colonic abnormalities were appreciated. The descending colon, splenic flexure, transverse colon and hepatic flexure were unremarkable. Present in the proximal ascending colon was a 5 to 6 mm sessile polyp. It was biopsied and ablated and submitted for histopathology after photographic documentation. No significant blood loss was noted. ASSESSMENT: 1. A 5 to 6 mm sessile polyp was removed from the proximal ascending colon. As long as there is no surprise on histopathology report, would advocate repeat surveillance colonoscopy in 5 years as long as the patient's health remains good. 2. There is a 5 mm firm nodule involving the upper outer left quadrant of the prostate suspicious for underlying cancer. Discussed this finding with the patient. He believes that he has had a urology visit in the last 2 to 3 years, but does not know if it was specifically for a nodule. He is going to be getting some screening labs that he believes the PSA as part of, with an upcoming visit with Dr. Lane. Sepsis Event Evaluation Height, Weight, BMI Height: 5'9.00" Weight: 200lbs. 0.0oz. 90.351831tb; 24.74 BMI Method:Stated Exam Exam Vital Signs Date Time Temp Pulse Resp B/P (MAP) Pulse Ox O2 Delivery O2 Flow Rate FiO2 09/22/20 05:08 36.4 09/22/20 01:20 36.8 09/22/20 01:00 88 09/21/20 23:41 88 19 123/76 (92) 96 09/21/20 21:56 100 20 146/89 (108) 95 Nasal Cannula 6.00 09/21/20 21:55 99 09/21/20 21:45 37.0 80 18 112/70 (90) 98 Nasal Cannula 4.00 09/21/20 17:25 37.0 92 18 130/70 (90) 100 Nasal Cannula 6.00 I & O 09/22/20 07:00 Intake Total 840 ml Balance 840 ml Height & Weight Height: 5'9.00" Weight: 200lbs. 0.0oz. 90.230144xq; 24.74 BMI Method:Stated General Appearance: No Apparent Distress, WD/WN Neck: Full Range of Motion, Normal Inspection Respiratory: Normal Breath Sounds, No Accessory Muscle Use, No Respiratory Distress, Other (diminished on left ) Cardiovascular: Regular Rate, Rhythm, Normal Peripheral Pulses Capillary Refill: Less Than 3 Seconds Extremity: Normal Capillary Refill, Normal Inspection, Other (neither leg swollen. 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
[2020-09-22] MEDS ORDERED: PIPERACILLIN/TAZOBACTAM (BULK) 4.5 GM in NS (IVPB) 100 ML IV SCH (06:30)
[2020-09-22 06:46] LABS: PHOSPHORUS 2.4 MG/DL (2.3-4.7)
[2020-09-22 06:48] LABS: MAGNESIUM 1.8 MG/DL (1.6-2.4)
[2020-09-22] MEDS ORDERED: PIPERACILLIN/TAZOBACTAM 4.5 GM in NS (IVPB) 100 ML IV ONE (07:00)
--- NOTE | 2020-09-22 08:34 | History & Physicial ---
History of Present Illness History of Present Illness Reason for visit/HPI PT IS A 70 Y/O MALE WHO IS WELL KNOWN TO ME FROM CLINIC AND PREVIOUS HOSPITALIZATION. HE PRESENTED TO THE EMERGENCY DEPARTMENT WITH WORSENING SHORTNESS OF BREATH ACUTELY AFTER HE WENT TO THE [facility] FOR LABS. HIS SISTER IN LAW REPORTS THAT HE COMPLAINED OF UPPER LEG PAIN AND SHORTNESS OF BREATH. HE WAS FOUND TO BE IN WORSENING PULMONARY FAILURE AND A CT SCAN SHOWED A PULMON SCARLETT EMBOLUS Date of Admission Sep 21, 2020 at 20:26 Date Seen by a Provider: Sep 22, 2020 Time Seen by a Provider: 08:[address] MD Admitting Physician Esther Lane MD Consult Allergies and Home Medications Allergies Coded Allergies: No Known Drug Allergies (Unverified , 04/01/18) Home Medications Albuterol Sulfate 6.7 Gm Hfa.aer.ad, 1 PUFF INH Q2 -4H PRN for SHORTNESS OF BREATH, (Reported) Ascorbic Acid 500 Mg Tablet, 500 MG PO DAILY, (Reported) Benzonatate 100 Mg Capsule, 100 MG PO TID, (Reported) C,E,Zinc,Copper 11/Pgolc2i/Lut 1 Each Capsule, 1 EACH PO DAILY, (Reported) Carvedilol 3.125 Mg Tablet, 3.125 MG PO DAILY, (Reported) Carvedilol 3.125 Mg Tablet, 6.25 MG PO HS, (Reported) TAKES 2 (3.125MG) TABS Dexamethasone 4 Mg Tablet, 8 MG PO UD PRN for CHEMO TREATMENTS, (Reported) TAKES A DOSE THE DAY PRIOR TO, THE DAY OF, AND THE DAY AFTER CHEMO Fluticasone Propion/Salmeterol 1 Each Blst.w.dev, 2 PUFF INH BID, (Reported) Folic Acid 1 Mg Tablet, 1 MG PO DAILY, (Reported) Hydroxyzine HCl 10 Mg Tablet, 10 MG PO TID PRN for ANXIETY, (Reported) [place]-3 Fatty Acids/Fish Oil 1 Each Capsule, 1 EACH PO DAILY, (Reported) Omeprazole 20 Mg Capsule.dr, 20 MG PO DAILY, (Reported) Ondansetron 4 Mg Tab.rapdis, 4 MG PO Q6H PRN for NAUSEA/VOMITING-1ST LINE, (Reported) Oxycodone HCl 10 Mg Tablet, 10 MG PO Q6H PRN for PAIN-SEVERE (8-10), (Reported) Vitamin E Acetate 400 Unit Capsule, 400 UNIT PO DAILY, (Reported) Patient Home Medication List Home Medication List Reviewed: Yes Past Nuggcgm-Twzrke-Chjymi Hx Patient Social History Marrital Status: Number of Children: 0 Number of living children: 0 Living Status: LIVES IN [place] WITH HIS SPOUSE NEAR SISTER IN LAW WHO CARES FOR THEM Employed/Student: retired Alcohol Beverage of Choice: Whiskey, [place] Smoking Status: Former Smoker Former Smoker, Quit: Apr 01, 2000 2nd Hand Smoke Exposure: No Recent Hopitalizations: No Have you traveled recently?: No Alcohol Use?: No Pt feels they are or have been: No Immunizations Up To Date Tetanus Booster (TDap): Unknown Date of Influenza Vaccine: May 06, 2020 Seasonal Allergies Seasonal Allergies: No Surgeries Yes (PORT) Abdominal Respiratory Yes (HOME O2 D/T LUNG CA) Currently Using CPAP: No Currently Using BIPAP: No Cardiovascular Yes High Cholesterol, Hypertension Neurological No Reproductive System Hx Reproductive Disorders: No Sexually Transmitted Disease: No HIV/AIDS: No Genitourinary No Gastrointestinal Yes Diverticulosis, Polyps Musculoskeletal Yes (SHOULDERS) Arthritis Endocrine History of Endocrine Disorders: No HEENT History of HEENT Disorders: No Loss of Vision: Bilateral Hearing Impairment: Denies Cancer Yes (SCL 19 YEARS AGO ) Lung Did You Recieve Any Treatments: Yes Type of Treatment: Chemotherapy Psychosocial History of Psychiatric Problem: No Integumentary History of Skin or Integumenta: No Blood Transfusions History of Blood Disorders: No Adverse Reaction to a Blood Tr: No (N/A) Reviewed Nursing Assessment Reviewed/Agree w Nursing PMH: Yes Family Medical History Significant Family History: Hypertension Other Significan Family Hx: ADDITIONAL PAST SURGICAL HISTORY: -LEFT INGUINAL HERNIA REPAIR 02/19/14 -REMOVAL OF BASAL CELL SKIN CANCER RIGHT ANABAPTIST 04/04/18 -COLONOSCOPY 12/19/19- FINDINGS: There was no evidence for internal or external hemorrhoids and the rectum was unremarkable. Mild to moderate number of small to medium size sigmoid diverticulum were present without evidence for diverticulitis. No other sigmoid colonic abnormalities were appreciated. The descending colon, splenic flexure, transverse colon and hepatic flexure were unremarkable. Present in the proximal ascending colon was a 5 to 6 mm sessile polyp. It was biopsied and ablated and submitted for histopathology after photographic documentation. No significant blood loss was noted. ASSESSMENT: 1. A 5 to 6 mm sessile polyp was removed from the proximal ascending colon. As long as there is no surprise on histopathology report, would advocate repeat surveillance colonoscopy in 5 years as long as the patient's health remains good. 2. There is a 5 mm firm nodule involving the upper outer left quadrant of the prostate suspicious for underlying cancer. Discussed this finding with the patient. He believes that he has had a urology visit in the last 2 to 3 years, but does not know if it was specifically for a nodule. He is going to be getting some screening labs that he believes the PSA as part of, with an upcoming visit with Dr. Lane. Review of Systems Constitutional: No chills, No fever; malaise, weakness EENTM: hearing loss; No throat pain Respiratory: cough, dyspnea on exertion, short of breath Cardiovascular: No edema, No palpitations Gastrointestinal: No abdominal pain, No constipation, No diarrhea, No nausea, No vomiting Genitourinary: no symptoms reported Musculoskeletal: muscle weakness Skin: no symptoms reported Psychiatric/Neurological: Anxiety; Denies Depressed; Weakness All Other Systems Reviewed Negative Unless Noted: Yes Physical Exam Vital Signs Vital Signs - First Documented 09/21/20 17:25 Temp 37.0 Pulse 92 Resp 18 B/P (MAP) 130/70 (90) Pulse Ox 100 O2 Delivery Nasal Cannula O2 Flow Rate 6.00 Capillary Refill : Less Than 3 Seconds Height, Weight, BMI Height: 5'9.00" Weight: 200lbs. 0.0oz. 90.297228wq; 24.74 BMI Method:Stated General Appearance: No Apparent Distress, WD/WN HEENT: PERRL/EOMI, Normal ENT Inspection, Pharynx Normal Neck: Full Range of Motion, Non Tender, Supple Respiratory: Chest Non Tender, No Accessory Muscle Use, Decreased Breath Sounds (LEFT LUNG FROM MID-LUNG TO BASE) Cardiovascular: Regular Rate, Rhythm, No Edema, Normal Peripheral Pulses Gastrointestinal: Normal Bowel Sounds, No Organomegaly, No Pulsatile Mass, Non Tender, Soft Rectal: Deferred Back: Normal Inspection, No Vertebral Tenderness Extremity: Normal Capillary Refill, Normal Inspection, Non Tender, No Calf Tenderness, No Pedal Edema Neurologic/Psychiatric: Alert, Oriented x3, No Motor/Sensory Deficits, Normal 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 There is no pulmonary embolism involving the left pulmonary arteries. There is no significant right heart strain seen. 2: There is a moderate sized loculated left pleural effusion which is slightly decreased in size in the interim. There is slight improved aeration of the left lung. There is residual consolidation involving the medial aspect of the left upper lobe and left perihilar region which may be related to patient's history of mass. 3: There is interval development of ground glass consolidations involving the periphery of the right lung. These may represent areas of pulmonary infarct or hemorrhage. Infection or inflammatory process may also be considered. 4: Mediastinal lymphadenopathy is again seen. - PT ON LOVENOX, WILL TRANSITION TO XARELTO DUE TO COST OF MEDICATION - LIKELY WILL TRANSITION TOMORROW. COPD WITH ACUTE EXACERBATION - STEROIDS, BREATHING TREATMENTS, MONITOR SYMPTOMS. 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
[2020-09-22 09:00] VITALS: BP 130/69
[2020-09-22 12:20] VITALS: BP 138/72
[2020-09-22] MEDS: ENOXAPARIN 80 MG/0.8 ML (LOVENOX) SYR SC SCH ×2 (12:30→20:12)
[2020-09-22] MEDS: methylPREDNISolone 40 MG/ML (Solu-MEDROL) VIAL IV SCH ×2 (12:32→17:06)
[2020-09-22] MEDS: NS IV 1000 ML 1,000 ML IV SCH ×2 (12:32→17:07)
[2020-09-22] MEDS: PIPERACILLIN/TAZO 4.5 GM/NS 100 ML IV SCH ×4 (12:32→20:12)
[2020-09-22] MEDS ORDERED: FLUT1BLS12 INH (14:41)
[2020-09-22] MEDS ORDERED: ONDA4TAB11 PO (14:41)
[2020-09-22] MEDS ORDERED: HYDR-3584 PO (14:41)
[2020-09-22] MEDS ORDERED: OXYC10TA7 PO (14:41)
[2020-09-22] MEDS ORDERED: RT-ALBUINH INH (14:41)
[2020-09-22] MEDS ORDERED: BENZ-36 PO (14:41)
[2020-09-22] MEDS ORDERED: CARV3.12 PO ×2 (14:41)
[2020-09-22] MEDS ORDERED: DEXA4TAB PO (14:41)
[2020-09-22] MEDS ORDERED: OMEG-109 PO (14:42)
[2020-09-22] MEDS ORDERED: VITA400C60 PO (14:42)
[2020-09-22] MEDS ORDERED: ASCO500T17 PO (14:42)
[2020-09-22 15:15] VITALS: BP 133/77
[2020-09-22 17:25] VITALS: BP 145/78
[2020-09-22 20:00] VITALS: BP 115/62
[2020-09-23] VITALS (7 sets, daily range): BP systolic 119–160; BP diastolic 66–98
[2020-09-23] MEDS ORDERED: CARVEDILOL 3.125 MG (COREG) TABLET PO ONE (04:00)
[2020-09-23] MEDS: PIPERACILLIN/TAZO 4.5 GM/NS 100 ML IV SCH ×6 (04:07→20:01)
[2020-09-23] MEDS: methylPREDNISolone 40 MG/ML (Solu-MEDROL) VIAL IV SCH ×5 (06:07→23:41)
[2020-09-23] MEDS ORDERED: hydrOXYzine (ATARAX) 10 MG TAB PO PRN (08:45)
[2020-09-23] MEDS ORDERED: ONDANSETRON 4 MG (ZOFRAN) ORAL DISSOLVE TAB PO PRN (08:45)
[2020-09-23] MEDS ORDERED: NON-FORMULARY MEDICATION 1 EA EA (Oxycodone HCl 10 MG) PO PRN (08:45)
[2020-09-23] MEDS ORDERED: OMEPRAZOLE 20 MG (PriLOSEC) CAP NON-FORMULARY PO SCH (09:00)
[2020-09-23] MEDS ORDERED: CARVEDILOL 3.125 MG (COREG) TABLET PO SCH (09:00)
[2020-09-23] MEDS ORDERED: NON-FORMULARY MEDICATION 1 EA EA (Fluticasone Propion/Salmeterol (Fluticasone-Salmeterol 2 INH SCH (09:00)
[2020-09-23] MEDS: BENZONATATE 100 MG (TESSALON) CAPSULE PO SCH ×3 (09:11→20:01)
[2020-09-23] MEDS: ASCORBIC ACID (VIT C) 500 MG TABLET PO SCH (09:12)
[2020-09-23] MEDS: FOLIC ACID 1 MG TAB PO SCH (09:12)
[2020-09-23] MEDS: CARVEDILOL 3.125 MG (COREG) TABLET PO SCH (09:12)
[2020-09-23] MEDS: PANTOPRAZOLE 20 MG TABLET (PROTONIX) PO SCH (09:13)
[2020-09-23] MEDS: ENOXAPARIN 80 MG/0.8 ML (LOVENOX) SYR SC SCH (09:14)
--- NOTE | 2020-09-23 09:14 | Progress Note ---
Subjective Subjective Date Seen by Provider: Sep 23, 2020 Time Seen by Provider: 09:00 PT REPORTS THAT HE IS FEELING MUCH BETTER TODAY, HE REPORTS THAT HIS SHORTNESS OF BREATH SEEMS STABLE. HE DENIES LEG PAIN, CHEST PAIN, NAUSEA, ABDOMINAL PAIN. Review of Systems General: No Chills; Fatigue, Malaise HEENT: No Head Aches Pulmonary: Dyspnea, Cough Cardiovascular: No: Chest Pain, Palpitations Gastrointestinal: No: Nausea, Abdominal Pain Genitourinary: No Dysuria Neurological: Weakness, Confusion (INTERMITTENT) All Other Systems Reviewed All Other Systems Reviewed: Yes Objective Exam Vital Signs Vital Signs - First Documented 09/21/20 17:25 Temp 37.0 Pulse 92 Resp 18 B/P (MAP) 130/70 (90) Pulse Ox 100 O2 Delivery Nasal Cannula O2 Flow Rate 6.00 Capillary Refill : Less Than 3 Seconds General Appearance: No Apparent Distress, WD/WN Eyes: Bilateral Eye Normal Inspection, Bilateral Eye PERRL HEENT: PERRL/EOMI, Normal ENT Inspection, Pharynx Normal Neck: Full Range of Motion, Non Tender, Supple Respiratory: Chest Non Tender, No Accessory Muscle Use, Decreased Breath Sounds (LEFT LUNG FROM MID-LUNG TO BASE) Cardiovascular: Regular Rate, Rhythm, No Edema, Normal Peripheral Pulses Gastrointestinal: Normal Bowel Sounds, No Organomegaly, No Pulsatile Mass, Non Tender, Soft Rectal: Deferred Back: Normal Inspection, No Vertebral Tenderness Extremity: Normal Capillary Refill, Normal Inspection, Non Tender, No Calf Tenderness, No Pedal Edema Neurologic/Psychiatric: Alert, Oriented x3, No Motor/Sensory Deficits, Normal Mood/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, 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 Norm as Tested Skin: Normal Color, Warm/Dry Lymphatic: No Adenopathy Results Lab Microbiology 09/21/20 Blood Culture - Preliminary, Resulted No growth Assessment/Plan Assessment/Plan Admission Dx 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 There is no pulmonary embolism involving the left pulmonary arteries. There is no significant right heart strain seen. 2: There is a moderate sized loculated left pleural effusion which is slightly decreased in size in the interim. There is slight improved aeration of the left lung. There is residual consolidation involving the medial aspect of the left upper lobe and left perihilar region which may be related to patient's history of mass. 3: There is interval development of ground glass consolidations involving the periphery of the right lung. These may represent areas of pulmonary infarct or hemorrhage. Infection or inflammatory process may also be considered. 4: Mediastinal lymphadenopathy is again seen. - PT ON LOVENOX, WILL TRANSITION TO XARELTO DUE TO COST OF MEDICATION - WILL CHANGE FROM LOVENOX TO XARELTO TODAY - 15MG BID X 21 DAYS THEN 20MG DAILY THEREAFTER. COPD WITH ACUTE EXACERBATION - STEROIDS, BREATHING TREATMENTS, MONITOR SYMPTOMS. 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
[2020-09-23] MEDS: ADVAIR HFA 115/21 MCG INHALER 8 GM IH SCH ×2 (09:53→18:11)
[2020-09-23] MEDS: NS IV 1000 ML 1,000 ML IV SCH (12:02)
--- NOTE | 2020-09-23 12:36 | Diagnostic Imaging Report ---
PROCEDURE: US Venous Lower Ext Enzo. TECHNIQUE: Multiple real-time grayscale images were obtained over the lower extremities in various projections, bilaterally. Additional duplex Doppler and color Doppler images were also obtained. INDICATION: Bilateral leg swelling. History of pulmonary embolism. CORRELATION STUDY: None FINDINGS: Findings are positive for what appears to be areas of a multifocal nonocclusive thrombus within the veins within the calf of both legs. More centrally, the popliteal, femoral vein and/or common femoral veins are otherwise patent and unremarkable. IMPRESSION: 1. Findings are positive for scattered multifocal nonocclusive clot involving the veins within the calf at both lower extremities. Findings were relayed by the [email or web address] android developer to the patient's unit nurse at time of imaging. Dictated by: Dictated on workstation # [id number]
[2020-09-23] MEDS: RIVAROXABAN 15 MG TABLET (XARELTO) PO SCH (20:01)
[2020-09-23] MEDS ORDERED: CARVEDILOL 6.25 MG (COREG) TAB PO SCH (21:00)
[2020-09-24 00:22] VITALS: BP 144/75
[2020-09-24] MEDS: NS IV 1000 ML 1,000 ML IV SCH (03:57)
[2020-09-24] MEDS: PIPERACILLIN/TAZO 4.5 GM/NS 100 ML IV SCH ×2 (04:00)
[2020-09-24 04:09] VITALS: BP 174/85
[2020-09-24 05:44] LABS: HEMOGLOBIN 10.9 g/dL (13.3-17.7); MEAN PLATELET VOLUME 9.1 fL (9.0-12.2); WHITE BLOOD COUNT 7.3 10^3/uL (4.3-11.0)
[2020-09-24 05:56] LABS: ALBUMIN 3.4 GM/DL (3.2-4.5); CHLORIDE 102 MMOL/L (98-107); POTASSIUM 4.3 MMOL/L (3.6-5.0); SODIUM 136 MMOL/L (135-145)
[2020-09-24 05:58] LABS: CALCIUM 9.1 MG/DL (8.5-10.1)
[2020-09-24 05:59] LABS: GLUCOSE 135 MG/DL (70-105); TOTAL PROTEIN 7.1 GM/DL (6.4-8.2)
[2020-09-24 06:00] LABS: CARBON DIOXIDE 23 MMOL/L (21-32)
[2020-09-24 06:01] LABS: BILIRUBIN,TOTAL 0.4 MG/DL (0.1-1.0)
[2020-09-24 06:02] LABS: ALKALINE PHOSPHATASE 64 U/L (40-136); CREATININE SERUM 0.84 MG/DL (0.60-1.30); GFR ESTIMATED > 60
[2020-09-24 06:03] LABS: BUN/CREATININE RATIO 23
[2020-09-24 06:05] LABS: ALANINE AMINOTRANSFERASE 34 U/L (0-55)
[2020-09-24] MEDS: RIVAROXABAN 15 MG TABLET (XARELTO) PO SCH (06:21)
[2020-09-24] MEDS: methylPREDNISolone 40 MG/ML (Solu-MEDROL) VIAL IV SCH (06:21)
--- NOTE | 2020-09-24 06:24 | Pulmonary Progress Note ---
Subjective Time Seen by a Provider: 06:22 Sepsis Event Evaluation Height, Weight, BMI Height: 5'9.00" Weight: 200lbs. 0.0oz. 90.256011gh; 24.74 BMI Method:Stated Focused Exam Lactate Level 09/21/20 17:45: Lactic Acid Level 1.16 Exam Exam Vital Signs Date Time Temp Pulse Resp B/P (MAP) Pulse Ox O2 Delivery O2 Flow Rate FiO2 09/24/20 04:09 35.5 79 18 174/85 (114) 94 High Flow N/C 5.00 09/24/20 01:00 65 09/24/20 00:22 35.6 73 18 144/75 (98) 92 High Flow N/C 5.00 09/23/20 20:12 37.0 80 16 132/81 (98) 93 High Flow N/C 5.00 09/23/20 20:00 93 High Flow N/C 5.00 09/23/20 19:00 90 09/23/20 18:11 94 High Flow N/C 6.00 09/23/20 16:37 36.7 80 20 119/66 (83) 96 High Flow N/C 5.00 09/23/20 12:35 101 09/23/20 11:56 36.0 100 20 130/67 (88) 94 High Flow N/C 5.00 09/23/20 09:53 93 High Flow N/C 5.00 09/23/20 08:00 36.2 76 20 156/81 (106) 94 High Flow N/C 5.00 09/23/20 08:00 High Flow N/C 6.00 09/23/20 06:40 74 I & O 09/24/20 07:00 Intake Total 4074 ml Output Total 950 ml Balance 3124 ml Height & Weight Height: 5'9.00" Weight: 200lbs. 0.0oz. 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 PT may need Lasix COPDAE -Start Solumedrol Q6 -- change to prednisone taper Adenocarcinoma lung cancer with malignant pleural effusion DRE RAMAN DO Sep 24, 2020 06:24
[2020-09-24] MEDS: ADVAIR HFA 115/21 MCG INHALER 8 GM IH SCH (07:02)
[2020-09-24 08:00] VITALS: BP 137/83
[2020-09-24] MEDS: FOLIC ACID 1 MG TAB PO SCH (08:59)
[2020-09-24] MEDS: CARVEDILOL 3.125 MG (COREG) TABLET PO SCH (08:59)
[2020-09-24] MEDS: PANTOPRAZOLE 20 MG TABLET (PROTONIX) PO SCH (08:59)
[2020-09-24] MEDS: ASCORBIC ACID (VIT C) 500 MG TABLET PO SCH (08:59)
[2020-09-24] MEDS: BENZONATATE 100 MG (TESSALON) CAPSULE PO SCH (08:59)
[2020-09-24] MEDS ORDERED: RIVA20TA2 PO (09:56)
[2020-09-24] MEDS ORDERED: LACT1CAP87 PO (09:56)
[2020-09-24] MEDS ORDERED: AMOX-358 PO (09:56)
[2020-09-24] MEDS ORDERED: PRD10T PO (09:56)
[2020-09-24] MEDS ORDERED: RIVA15TA2 PO (09:56)
--- NOTE | 2020-09-24 10:00 | D/C HH Face to Face Order ---
D/C Face to Face Orders Reconcile Patient Problems Problems Reviewed?: Yes Instructions for Patient Via [facility], Patient Instructions/FollowUp: 1 [facility] KEEP APPT AT [facility] FOR CHEMOTHERAPY IN OCTOBER [address] RAMAN Physician to follow Patient: SKIP Discharge Diet for Home: Regular Diet Patient Problems: ADENOCARCINOMA LEFT LUNG PULMONARY EMBOLI RIGHT LUNG BILATERAL LOWER EXTREMITY DVT'S Patient Data-Allergies,Ht & Wt Patient Allergies: Coded Allergies: No Known Drug Allergies (Unverified , 04/01/18) Height (Feet): 5 Height (Inches): 9.00 Weight (Pounds): 200 Weight (Ounces): 0.0 Home Health Need/Face to Face Date of Face to Face: Sep 24, 2020 Clinical Findings: Generalized weakness and fatigue, Immune-compromised, Muscle weakness, Shortness of breath I have seen Pt [id number]: Yes Discharged To: Home Diagnosis/Conditions: ADENOCARCINOMA LEFT LUNG PULMONARY EMBOLI RIGHT LUNG BILATERAL LOWER EXTREMITY DVT'S Patient is Homebound due to: Muscle weakness, Shortness of breath/distress Homebound Status Due to the above stated illness, injury or surgical procedure (medical condition or diagnosis) and associated clinical findings, the patient is homebound because of his/her inability to leave home except with aid of a supportive device and/or person AND leaving the home requires a considerable and taxing effort or is medically contraindicated. Pt req the following assistanc: [facility] Nursing Orders Home Health Services Order: Nursing Services, Academic Administrator-Evaluate & Treat, Physical Therapy-Evaluate & Treat PLEASE CONTACT [facility] FOR HIS LAB ORDERS FROM DR. MERRITT SO PT DOES NOT HAVE TO TRAVEL OUT OF HOME TO [facility] FOR HIS WEEKLY LABS PT EVAL AND TREAT, HOME SAFETY EVAL AND PLEASE LET KNOW IF HE WOULD BENEFIT FROM EXTRA DEVICES IN HOME FOR SHOWER, ETC. Home Health Infusion Therapy Line Start Date: Sep 22, 2020 Therapy Orders Therapy Specific Orders: Eval assistive deivces, Teach enviro modifications/safety, Increase strength/endurance OXYGEN AT 8 LITERS ON AMBULATION AND 4 LITERS AT REST - PLEASE MAKE SURE YULIA HAS HUMIDIFICATION WITH HIS OXYGEN Certify Stmt I certify that this patient is under my care and that I, a nurse practitioner or a physician; a office support assistant working with me, had a face to face encounter that - meets the physician face to face encounter requirements with this patient as dated. Medication List: Active Scripts Active Acidophilus Lactobacilli (Lactobacillus Acidophilus) 1 Each Capsule 1 Each PO TID Augmentin 875-125 Tablet (Amoxicillin/Potassium Clav) 1 Each Tablet 1 Each PO BID Prednisone 10 Mg Tab 60 Mg PO DAILY@0700 TAKE WITH FOOD - DONT TAKE AT SAME TIME XARELTO 60MG DAY #1, THEN DECREASE BY 1 PILL EVERY OTHER DAY UNTIL RX IS GONE Xarelto Tablet (Rivaroxaban) 20 Mg Tablet 20 Mg PO DAILY@0700 START THIS RX ON 10/15/2020 Xarelto Tablet (Rivaroxaban) 15 Mg Tablet 15 Mg PO BID@0700,1900 TAKE TWICE DAILY X 20 MORE DAYS THEN CHANGE TO THE 20MG DAILY THEREAFTER Reported Fish Oil 1,200 mg Softgel ([place]-3 Fatty Acids/Fish Oil) 1 Each Capsule 1 Each PO DAILY Vitamin E (Vitamin E Acetate) 400 Unit Capsule 400 Unit PO DAILY Vitamin C (Ascorbic Acid) 500 Mg Tablet 500 Mg PO DAILY Hydroxyzine HCl 10 Mg Tablet 10 Mg PO TID PRN Oxycodone HCl 10 Mg Tablet 10 Mg PO Q6H PRN Dexamethasone 4 Mg Tablet 8 Mg PO UD PRN TAKES A DOSE THE DAY PRIOR TO, THE DAY OF, AND THE DAY AFTER CHEMO Proventil Hfa (Albuterol Sulfate) 6.7 Gm Hfa.aer.ad 1 Puff INH Q2 -4H PRN Ondansetron Odt (Ondansetron) 4 Mg Tab.rapdis 4 Mg PO Q6H PRN Coreg (Carvedilol) 3.125 Mg Tablet 6.25 Mg PO HS TAKES 2 (3.125MG) TABS Coreg (Carvedilol) 3.125 Mg Tablet 3.125 Mg PO DAILY Benzonatate 100 Mg Capsule 100 Mg PO TID Fluticasone-Salmeterol 250-50 (Fluticasone Propion/Salmeterol) 1 Each Blst.w.dev 2 Puff INH BID Folic Acid 1 Mg Tablet 1 Mg PO DAILY Ocuvite Adult 50 Plus Softgel (C,E,Zinc,Copper 11/Hyeib4o/Lut) 1 Each Capsule 1 Each PO DAILY Omeprazole 20 Mg Capsule.dr 20 Mg PO DAILY Lab results: Laboratory Tests Test 09/24/20 05:27 Range/Units White Blood Count 7.3 4.3-11.0 10^3/uL Red Blood Count 3.70 L 4.30-5.52 10^6/uL Hemoglobin 10.9 L 13.3-17.7 g/dL Hematocrit 32 L 40-54 % Mean Corpuscular Volume 86 80-99 fL Mean Corpuscular Hemoglobin 30 25-34 pg Mean Corpuscular Hemoglobin Concent 34 32-36 g/dL Red Cell Distribution Width 12.3 10.0-14.5 % Platelet Count 142 130-400 10^3/uL Mean Platelet Volume 9.1 9.0-12.2 fL Sodium Level 136 135-145 MMOL/L Potassium Level 4.3 3.6-5.0 MMOL/L Chloride Level 102 98-107 MMOL/L Carbon Dioxide Level 23 21-32 MMOL/L Anion Gap 11 5-14 MMOL/L Blood Urea Nitrogen 19 H 7-18 MG/DL Creatinine 0.84 0.60-1.30 MG/DL Estimat Glomerular Filtration Rate > 60 BUN/Creatinine Ratio 23 Glucose Level 135 H 70-105 MG/DL Calcium Level 9.1 8.5-10.1 MG/DL Corrected Calcium 9.6 8.5-10.1 MG/DL Total Bilirubin 0.4 0.1-1.0 MG/DL Aspartate Amino Transf (AST/SGOT) 26 5-34 U/L Alanine Aminotransferase (ALT/SGPT) 34 0-55 U/L Alkaline Phosphatase 64 40-136 U/L B-Type Natriuretic Peptide 159.4 H <100.0 PG/ML Total Protein 7.1 6.4-8.2 GM/DL Albumin 3.4 3.2-4.5 GM/DL My orders: Orders - ESTHER VALDIVIA MD Attending Discharge Inpt/Inobs (09/24/20 09:47) [facility] Dischage (09/24/20 09:47) ESTHER VALDIVIA MD Sep 24, 2020 09:59
--- NOTE | 2020-09-24 10:05 | Discharge Summary ---
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 HE PRESENTED TO THE EMERGENCY DEPARTMENT WITH WORSENING SHORTNESS OF BREATH ACUTELY AFTER HE WENT TO THE [facility] FOR LABS. HIS SISTER IN LAW REPORTS THAT HE COMPLAINED OF UPPER LEG PAIN AND SHORTNESS OF BREATH. HE WAS FOUND TO BE IN WORSENING PULMONARY FAILURE AND A CT SCAN SHOWED A PULMONARY EMBOLUS Discharge Summary Consultations DR. RAMAN Discharge Physical Examination Allergies: Coded Allergies: No Known Drug Allergies (Unverified , 04/01/18) Vitals & I&Os Vital Signs Date Time Temp Pulse Resp B/P (MAP) Pulse Ox O2 Delivery O2 Flow Rate FiO2 09/24/20 08:00 35.8 105 20 137/83 (101) 92 High Flow N/C 4.00 General Appearance: Alert, Oriented X3, Cooperative, Mild Distress (RESPIRATORY DISTRESS AFTER AMBULATING TO RESTROOM ON 4 LITERS OF OXYGEN) HEENT: Atraumatic, PERRLA Respiratory: Other (DECREASED LEFT MID LUNG TO BASE, CLEAR ON RIGHT) Cardiovascular: Regular Rate Abdominal: Normal Bowel Sounds, Soft, No Tenderness Extremities: No Clubbing, No Cyanosis, No Edema, No Tenderness/Swelling Skin: No Rashes, No Breakdown Neuro: Normal Speech, Strength at 5/5 X4 Ext, Cranial Nerves 3-12 NL Psych/Mental Status: Mental Status NL, Mood NL Hospital Course Was the Problem List Reviewed?: Yes 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 There is no pulmonary embolism involving the left pulmonary arteries. There is no significant right heart strain seen. 2: There is a moderate sized loculated left pleural effusion which is slightly decreased in size in the interim. There is slight improved aeration of the left lung. There is residual consolidation involving the medial aspect of the left upper lobe and left perihilar region which may be related to patient's history of mass. 3: There is interval development of ground glass consolidations involving the periphery of the right lung. These may represent areas of pulmonary infarct or hemorrhage. Infection or inflammatory process may also be considered. 4: Mediastinal lymphadenopathy is again seen. - PT ON LOVENOX, WILL TRANSITION TO XARELTO DUE TO COST OF MEDICATION - CHANGED FROM LOVENOX TO XARELTO - 15MG BID X 21 DAYS THEN 20MG DAILY THEREAFTER. - STARTED ON ZOSYN IN HOSPITAL, WILL CHANGE TO AUGMENTIN 875MG BID X 5 MORE DAYS ON DC AND PREDNISONE TAPER. COPD WITH ACUTE EXACERBATION - STEROIDS, BREATHING TREATMENTS, MONITOR SYMPTOMS. - ON STEROID TAPER ON DC, CONTINUE HOME REGIMEN HYPERTENSION - ON COREG OUTPATIENT- RX CONTINUED IN HOSPITAL AND UPON DC ESOPHAGEAL REFLUX - RESTARTED OMEPRAZOLE LOWER EXTREMITY DVT'S CONTINUE WITH XARELTO OUTPATIENT. DISCUSSED END OF LIFE CARE, PT HAS ONLY HAD ONE CHEMOTHERAPY TREATMENT, BUT UNDERSTANDS THAT HE IS IN A VERY PRECARIOUS SITUATION AND COULD HAVE WORSENING OF HIS DISEASE PROCESS BEFORE THE CHEMOTHERAPY HAS A CHANCE TO IMPROVE HIS TUMOR BURDEN. HE UNDERSTANDS THE RISKS AND POTENTIAL BAD OUTCOME FROM HIS BLOOD CLOTS AND LUNG CANCER. HE DESIRES TO CONTINUE WITH CHEMO AT THIS TIME, BUT WILL CONTINUE TO KEEP HOSPICE AN OPTION. Pending Labs Laboratory Tests 09/24/20 05:27: White Blood Count 7.3, Red Blood Count 3.70, Hemoglobin 10.9, Hematocrit 32, Mean Corpuscular Volume 86, Mean Corpuscular Hemoglobin 30, Mean Corpuscular Hemoglobin Concent 34, Red Cell Distribution Width 12.3, Platelet Count 142, Mean Platelet Volume 9.1, Sodium Level 136, Potassium Level 4.3, Chloride Level 102, Carbon Dioxide Level 23, Anion Gap 11, Blood Urea Nitrogen 19, Creatinine 0.84, Estimat Glomerular Filtration Rate > 60, BUN/Creatinine Ratio 23, Glucose Level 135, Calcium Level 9.1, Corrected Calcium 9.6, Total Bilirubin 0.4, Aspartate Amino Transf (AST/SGOT) 26, Alanine Aminotransferase (ALT/SGPT) 34, Alkaline Phosphatase 64, B-Type Natriuretic Peptide 159.4, Total Protein 7.1, Albumin 3.4 Discharge Condition at discharge STABLE Instructions to patient/family Please see electronic discharge instructions given to patient. Discharge Medications Reviewed and agree with Discharge Medication list on patient's Discharge Instruction sheet Medication List: Active Scripts Active Acidophilus Lactobacilli (Lactobacillus Acidophilus) 1 Each Capsule 1 Each PO TID Augmentin 875-125 Tablet (Amoxicillin/Potassium Clav) 1 Each Tablet 1 Each PO BID Prednisone 10 Mg Tab 60 Mg PO DAILY@0700 TAKE WITH FOOD - DONT TAKE AT SAME TIME XARELTO 60MG DAY #1, THEN DECREASE BY 1 PILL EVERY OTHER DAY UNTIL RX IS GONE Xarelto Tablet (Rivaroxaban) 20 Mg Tablet 20 Mg PO DAILY@0700 START THIS RX ON 10/15/2020 Xarelto Tablet (Rivaroxaban) 15 Mg Tablet 15 Mg PO BID@0700,1900 TAKE TWICE DAILY X 20 MORE DAYS THEN CHANGE TO THE 20MG DAILY THEREAFTER Reported Fish Oil 1,200 mg Softgel ([place]-3 Fatty Acids/Fish Oil) 1 Each Capsule 1 Each PO DAILY Vitamin E (Vitamin E Acetate) 400 Unit Capsule 400 Unit PO DAILY Vitamin C (Ascorbic Acid) 500 Mg Tablet 500 Mg PO DAILY Hydroxyzine HCl 10 Mg Tablet 10 Mg PO TID PRN Oxycodone HCl 10 Mg Tablet 10 Mg PO Q6H PRN Dexamethasone 4 Mg Tablet 8 Mg PO UD PRN TAKES A DOSE THE DAY PRIOR TO, THE DAY OF, AND THE DAY AFTER CHEMO Proventil Hfa (Albuterol Sulfate) 6.7 Gm Hfa.aer.ad 1 Puff INH Q2 -4H PRN Ondansetron Odt (Ondansetron) 4 Mg Tab.rapdis 4 Mg PO Q6H PRN Coreg (Carvedilol) 3.125 Mg Tablet 6.25 Mg PO HS TAKES 2 (3.125MG) TABS Coreg (Carvedilol) 3.125 Mg Tablet 3.125 Mg PO DAILY Benzonatate 100 Mg Capsule 100 Mg PO TID Fluticasone-Salmeterol 250-50 (Fluticasone Propion/Salmeterol) 1 Each Blst.w.dev 2 Puff INH BID Folic Acid 1 Mg Tablet 1 Mg PO DAILY Ocuvite Adult 50 Plus Softgel (C,E,Zinc,Copper 11/Eyzfx8r/Lut) 1 Each Capsule 1 Each PO DAILY Omeprazole 20 Mg Capsule. 20 Mg PO DAILY ESTHER VALDIVIA MD Sep 24, 2020 10:05
[2020-09-24] MEDS ORDERED: predniSONE 10 MG TAB PO SCH (12:00)
[2020-10-14] MEDS ORDERED: RIVAROXABAN 20 MG TABLET (XARELTO) PO SCH (07:00)
== END 2020-09-24 12:00 | disposition home health service (06) | DRG 175 ==
LOC: EDUNIT# 17:23 → ER 17:24 → ICU 20:26 → 4TH 09-22 17:12
PROVIDERS: ADMIT Family Medicine; ATTEND Family Medicine
DX: I26.99 Other pulmonary embolism without acute cor pulmonale (principal); J18.9 Pneumonia, unspecified organism; C34.90 Malignant neoplasm of unspecified part of unspecified bronchus or lung; J91.0 Malignant pleural effusion; J44.1 Chronic obstructive pulmonary disease with (acute) exacerbation; J44.0 Chronic obstructive pulmonary disease with (acute) lower respiratory infection; I82.409 Acute embolism and thrombosis of unspecified deep veins of unspecified lower extremity; K57.92 Diverticulitis of intestine, part unspecified, without perforation or abscess without bleeding; I10 Essential (primary) hypertension; K21.9 Gastro-esophageal reflux disease without esophagitis; E78.00 Pure hypercholesterolemia, unspecified; M19.90 Unspecified osteoarthritis, unspecified site; Z92.21 Personal history of antineoplastic chemotherapy; Z87.891 Personal history of nicotine dependence
CPT/HCPCS: 36415; 70450; 71045; 71275; 73552; 73590; 80053; 81000; 82805; 83605; 83735; 83880; 84100; 84145; 85025; 85027; 85610; 87040; 87070; 87205; 93970; 94640; 94760